=== PATIENT | female | born 1955 | race Caucasian/White ===

== ENCOUNTER 2019-12-28 11:02 | Emergency (ER) | payer OTHER, SELFPAY ==
[2019-12-28 10:42] VITALS: BMI 23.6
[2019-12-28 11:02] VITALS: PULSE 85; RESP 24; O2SAT 99
[2019-12-28 11:03] VITALS: BP 113/70; PULSE 101; RESP 17; TEMP 37.1; BMI 20.7
--- NOTE | 2019-12-28 11:25 | RAD_ITS ---
STUDY: X-RAY - UNILATERAL RIBS ( LEFT ) WITH CHEST REASON FOR EXAM: Female, 64 years old. FALL FROM HORSE TWO DAYS AGO, DIZZINESS, L SIDE PAIN, DECREASED O2 TECHNIQUE - RIBS: 4 view(s) of the ribs. TECHNIQUE - CHEST: Single PA view. COMPARISON: None. FINDINGS - RIBS: Acute fractures of the left sixth, seventh, eighth and ninth ribs. FINDINGS - CHEST: Pulmonary hyperinflation with flattening of the hemidiaphragms. Mild emphysema of the upper lobes, right side more than left. No suspicious infiltrates. Bilaterally prominent nipple shadows. There is no demonstrated pleural abnormality. Microcardia. Normal mediastinum and marialuisa. Normal visualized pulmonary arteries. Normal visualized aortic arch and descending thoracic aorta. Normal visualized thoracic spine. Acute fracture of the left mid clavicle with apical angulation deformity of the fracture fragments. Normal right clavicle and shoulders. Normal right rib cage. There is no demonstrated abnormality of the visualized soft tissue structures of the upper abdomen. RAD/Ribs Uni Min 3V w/PA Chest IMPRESSION: RIBS: Acute fractures of the left sixth, seventh, eighth and ninth ribs. CHEST: Acute fracture of the left mid clavicle with apical angulation deformity of the fracture fragments. 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 Electronically Signed: Philip Rojas MD at 12:17 EDT , Service support ,
--- NOTE | 2019-12-28 11:25 | RAD_ITS ---
STUDY: X-RAY - PELVIS AND LEFT HIP REASON FOR EXAM: Female, 64 years old. FALL FROM HORSE TWO DAYS AGO, DIZZINESS, L SIDE PAIN, DECREASED O2 TECHNIQUE: 3 views of the pelvis and hip. COMPARISON: None. FINDINGS: There is a non-specific bowel gas pattern. Normal visualized soft tissue structures. Normal bilateral iliac wings, sacroiliac joints and visualized sacrum. Normal bilateral superior and inferior pubic rami. Normal pubic symphysis. Normal bilateral ischial tuberosities. Normal visualized femoral head. Normal acetabulum. Normal hip joint. RAD/HIP, UNI W/ Pelvis 2-3 Views IMPRESSION: No acute fracture or dislocation of the pelvis and left hip. Electronically Signed: Philip Rojas MD at 12:12 EDT , Service support ,
--- NOTE | 2019-12-28 11:25 | ED.VIS.FALL ---
History of Present Illness Chief Complaint: Dizziness Detail of Chief Complaint: fall Occurred: Days - 2 d ago Mechanism/Context: - - bucked off of a horse Location: left side -- shoulder, ribcage, hip Quality of Pain: Aching Current Severity: Moderate Maximum Severity: Moderate Worsened by: walking, deep inspiration, movement Relieved by: remaining still. no pain in hip w/ standing/WBing Associated Symptoms: - - lightheaded w/ standing. no vertiginous sx. no headache, nausea. vomited some water once yesterday.. Negative for: Parasthesias, Weakness, Loss of function, Inability to ambulate, Loss of consciousness, Amnesia Narrative: Patient fell off of a horse 2 days ago. She had no loss of consciousness. She landed on her left side, she sustained an abrasion to her forehead but the head was not the sole area that she landed. She is having pain in her left clavicle, left posterior rib cage, in her lateral and anterior left hip. She can bear weight without any difficulty, when she forward flexes at the hip while walking it hurts. Denies any abdominal pain. She has urinated without hematuria. No headaches or vision changes or neurologic symptoms. She is healthy and takes no medications daily including antiplatelet or anticoagulant medicines. Past Medical History - Allergies and Home Meds Allergies/Adverse Reactions: Allergies No Known Allergies Allergy (Unverified 12/28/19 11:03) Primary Care Physician: Eleanor Armstrong DO [Primary Care Provider] - Past Medical History: None Smoking Status: Never smoker Drugs: None Review of Systems General: Denies: Chills, Fever, Sweats Eyes: Denies: Visual changes - bilaterally, Diplopia ENT: Denies: Rhinorrhea, Sore throat Cardiovascular: Reports: Chest pain. Denies: Palpitations Respiratory: Denies: Dyspnea, Cough, Dyspnea on exertion Gastrointestinal: Denies: Abdominal pain, Nausea, Vomiting, Diarrhea, Melena, Hematochezia Genitourinary: Denies: Dysuria, Hematuria, Frequency Musculoskeletal: Reports: Back pain - Left lateral/low ribs, Extremity Pain. Denies: Neck pain Skin: Reports: Abrasions. Denies: Rash Neurological: Denies: Headache, Weakness, Numbness Physical Exam Vital Signs/Narrative: Vital Signs Temp Pulse Resp BP Pulse Ox 12/28/19 11:03 98.8 F 101 H 17 113/70 12/28/19 11:02 85 24 H 99 Inital Vital Signs reviewed: Yes General: Well nourished, Well developed, - - Well-appearing no distress. Head: Normocephalic, Atraumatic Eyes: Perrl, EOMI ENT: TM's clear, No hemotympanum or drainage, No trauma - Except for minor nontender abrasion, healing, left forehead. No crepitance or depression. Neck: Nontender, Full ROM. Negative for: Spinal Tenderness Cardiovascular: Regular rate, Regular rhythm, No murmurs Respiratory: No distress, CTA bilaterally, Chest tenderness - Left mid-lateral clavicle. No deformity. No step-off palpable. No tenderness at the acromioclavicular joint or the sternum/sternoclavicular joints. Abdomen: Soft, Nontender, Nondistended, Normal bowel sounds Back: - - Mild tenderness left paraspinal pelvic brim. No crepitance or step-off or signs of obvious trauma.. Negative for: Spinal Tenderness Extremeties: Tender at the left ASIS. Mildly tender at the greater trochanter. Painless internal and external rotation. Full range of motion of all joints of all 4 extremities. Skin: Normal color, No rash, Trauma - Minor abrasion forehead. Bruising with intact skin left lateral hip, diffuse. Neurological: Alert, Oriented x3, Cranial nerves II-XII grossly intact, Normal Strength, Normal Sensation, - - GCS 15 Psychological: Normal affect, Normal Mood Diagnostic/Tx/Re-eval Clinical Impression(s) from Imaging Studies Hip/Pelvis X-Ray 12/28/19 11:25 IMPRESSION: No acute fracture or dislocation of the pelvis and left hip. Electronically Signed: Philip Rojas MD at 12:12 EDT , Service support , Ribs w/Chest X-Ray 12/28/19 11:25 IMPRESSION: RIBS: Acute fractures of the left sixth, seventh, eighth and ninth ribs. CHEST: Acute fracture of the left mid clavicle with apical angulation deformity of the fracture fragments. 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 Electronically Signed: Philip Rojas MD at 12:17 EDT , Service support , - Medical Decision Making Patient given ibuprofen at her request. X-rays show angulated but nondisplaced fracture of the left clavicle in the middle of it, as well as multiple rib fractures on the left side. I think all of these are uncomplicated. Her pelvis/hip is okay on x-ray. She was reassured, given appropriate discharge instructions, a sling for her left upper extremity, prescription for Ultram, and advised to follow-up with orthopedics for reevaluation to ensure fracture healing goes appropriately. We discussed her dizziness/lightheadedness when she stands up. I do not think this is a symptom of concussion, and since she has had really no other symptoms of concussion, I do not think she needs a head scan to see if she has any type of significant traumatic brain injury, which I do not think she has. ED Disposition - Plan for ED Patient: Disposition: Home or Assisted Living Diagnosis: Closed left clavicular fracture, Left rib fracture Instructions: ED Rib Fx, ED Clavicle Fracture Prescriptions: traMADol [Ultram (G)] 50 mg PO Q4H PRN PRN #20 tab PRN Reason: pain Transmission Status: Sent to [id number] Referrals: Eleanor Armstrong DO [Primary Care Provider] - Arash Cheung MD [STAFF PHYSICIAN] - 1-2 Weeks
[2019-12-28] MEDS: Ibuprofen 200 MG Tablet 400 MG PO (12:12)
--- NOTE | 2019-12-28 12:45 | CT_ITS ---
STUDY: CT BRAIN WITHOUT CONTRAST REASON FOR EXAM: Female, 64 years old. Dizziness and lightheaded after fall. Left clavicle fracture. RADIATION DOSAGE (If Supplied By Facility): CTDIvol = ( 44.99 ) mGy, DLP = ( 745.49 ) mGycm TECHNIQUE: Transaxial CT imaging of the brain was performed without administration of intravenous contrast material. Coronal and sagittal reconstructions were performed. Individualized dose optimization techniques were used for this CT. COMPARISON: None. FINDINGS: Normal soft tissue structures. Normal calvarium. Normal size ventricles and extra-axial spaces for the patient''s age. Normal white matter tracts of the cerebral hemispheres. Normal basal ganglia and thalami. Normal brainstem. Normal cerebellum. There is no intracranial hemorrhage. There are no findings of an acute ischemic infarction. Normal visualized paranasal sinuses. CT/Brain/Head without Contrast IMPRESSION: Normal unenhanced CT scan of the brain. Electronically Signed: Philip Rojas MD at 13:58 EDT , Service support ,
[2019-12-28 13:02] VITALS: BP 142/76; PULSE 93; RESP 20; O2SAT 99
[2019-12-28 14:00] VITALS: BP 124/70; PULSE 85; RESP 20; O2SAT 97
== END 2019-12-28 14:36 | disposition home or self-care (01) ==
PROVIDERS: Emergency Provider Emergency Medicine; PCP Internal Medicine
DX: S42.025A Nondisplaced fracture of shaft of left clavicle, initial encounter for closed fracture (principal); S22.42XA Multiple fractures of ribs, left side, initial encounter for closed fracture; V80.010A Animal-rider injured by fall from or being thrown from horse in noncollision accident, initial encounter; Y93.52 Activity, horseback riding; Y92.89 Other specified places as the place of occurrence of the external cause; Y99.8 Other external cause status
CPT/HCPCS: 70450; 71101; 73502; 99283

== ENCOUNTER 2022-01-06 07:38 | Outpatient (CLI) | payer OTHER, SELFPAY ==
--- NOTE | 2022-01-06 13:08 | NEURO ---
NCS and/or EMG Patient Report Ordering Doctor: Jac Truong DATE OF SERVICE: 01/06/22 Emily presents for electrodiagnostic testing of the right lower limb. She reports weakness in the right leg for the past year. Electrodiagnostic findings: Right peroneal motor nerve demonstrates normal distal latency with borderline reduced amplitude and normal conduction velocity. Normal right tibial motor response. Normal tibial and peroneal F-wave. H reflex normal bilaterally. Absent right sural and medial plantar responses. Normal right superficial peroneal latency. Needle EMG, 1+ polyphasic motor unit action potentials are noted in the right anterior tibialis and right peroneus longus. Electrodiagnostic impression: This is an abnormal study. 1. Electrodiagnostic findings are suggestive of chronic denervation in the right L5 distribution. 2. Absence of sensory responses and borderline reduced right peroneal motor amplitude may be suggestive of early polyneuropathy. Would consider testing of the alternate limb and potentially one upper limb for more definitive diagnosis. 3. No electrodiagnostic evidence is noted for lumbosacral radiculopathy.
== END 2022-01-06 23:59 | disposition home or self-care (01) ==
LOC: PSN 07:39
PROVIDERS: PCP Internal Medicine; Visit Provider Psychiatry & Neurology Neurology
DX: G57.30 Lesion of lateral popliteal nerve, unspecified lower limb (principal)
CPT/HCPCS: 95886; 95910

== ENCOUNTER → 2022-01-22 | Outpatient (CLI) | payer OTHER, SELFPAY ==
[2022-01-22 10:41] LABS: Erythrocyte Sedimentation Rate 12 mm/hr (0-30)
[2022-01-22 10:43] LABS: Hematocrit 37.6 % (37-47); Hemoglobin 12.6 g/dL (12.0-15.0); Mean Corp Hgb Conc 33.5 g/dL (32-36); Mean Corpuscular Hgb 32.6 pg (27.0-32.0); Mean Corpuscular Volume 97.4 fL (81-99); Mean Platelet Vol. 10.5 fl (6.2-12.0); Platelet Count 287 K/mm3 (150-450); RBC Distribution Width SD 46.4 fl (35.1-43.9); Red Blood Count 3.86 M/mm3 (4.2-5.4); White Blood Count 3.3 K/mm3 (4.4-11.0)
[2022-01-22 10:47] LABS: Vitamin B12 588 pg/mL (211-911)
[2022-01-22 11:28] LABS: AST(SGOT) 17 U/L (15-37); Alanine Aminotransfer ALT/SGPT 21 U/L (13-56); Albumin, Serum 3.9 g/dL (3.2-5.0); Alkaline Phosphatase 41 U/L (45-117); Anion Gap 6 (5-15); BUN 24 mg/dL (7-18); BUN/Creat Ratio 29.1 RATIO (10-20); Calcium,Total 9.5 mg/dL (8.5-10.1); Chloride 104 mmol/L (98-107); Creatinine, Serum 0.83 mg/dL (0.55-1.02); EST Glomerular Filtration Rate 73 mL/min (>60); Est Glom Filt Rate - Afr Amer 88 mL/min (>60); Globulin 4.1 g/dL (2.2-4.2); Glucose 93 mg/dL (74-106); Potassium 3.9 mmol/L (3.5-5.1); Sodium Level 139 mmol/L (136-145); Thyroid Stim Hormone (TSH) 2.34 uIU/mL (0.358-3.74)
[2022-02-02 09:09] LABS: Free Kappa Light Chains 20.4 mg/L (3.3-19.4); Free Lambda Light Chains 14.8 mg/L (5.7-26.3)
[2022-02-02 11:46] LABS: Vitamin B1, Thiamine 157.5 nmol/L (66.5-200.0)
== END | disposition home or self-care (01) ==
PROVIDERS: PCP Internal Medicine; Referring Provider Psychiatry & Neurology Neurology; Visit Provider Psychiatry & Neurology Neurology
DX: G62.9 Polyneuropathy, unspecified (principal)
CPT/HCPCS: 36415; 80053; 82607; 82746; 83883; 84425; 84443; 85027; 85652

== ENCOUNTER → 2022-03-04 | Outpatient (CLI) | payer OTHER, SELFPAY ==
[2022-03-04 12:38] LABS: Ferritin 27 ng/mL (8-252); Iron 103 ug/dL (50-170); Magnesium 1.9 mg/dL (1.6-2.6)
[2022-03-05 15:08] LABS: Albumin 3.9 g/dL (2.9-4.4); Alpha-1-Globulins 0.3 g/dL (0.0-0.4); Alpha-2-Globulins 0.6 g/dL (0.4-1.0); Gamma Globulin 1.3 g/dL (0.4-1.8); Immunoglobulin A 249 mg/dL (87-352); Immunoglobulin G 1429 mg/dL (586-1602); Immunoglobulin M 158 mg/dL (26-217); PROEL- TOTAL PROTEIN 7.1 g/dL (6.0-8.5)
== END | disposition home or self-care (01) ==
LOC: MTLAB 10:05
PROVIDERS: Nurse Practitioner Family; PCP Internal Medicine; Referring Provider Psychiatry & Neurology Neurology; Visit Provider Psychiatry & Neurology Neurology
DX: G62.9 Polyneuropathy, unspecified (principal); G20 Parkinson's disease; D64.9 Anemia, unspecified
CPT/HCPCS: 36415; 82728; 82784; 83540; 83735; 84165; 86334; 86335

== ENCOUNTER 2022-04-05 08:00 | Outpatient (RCR) | payer OTHER, SELFPAY ==
--- NOTE | 2022-02-08 08:47 | HP.PTEVAL_ITS ---
Patient's Visit Information ANTHONY CHAUDHARY is a 66 year old F referred to Physical Therapy by JONATHAN Goins with a diagnosis of Parkinson's Disease, R. Date of Evaluation: 02/01/22 Physical Therapist: FERNANDO Briones - Visit Plan Frequency: 2x /Week Duration: 4 Weeks Plan: 2x/ WEEK for 4 weeks for dual tasking, balance, balance dynamic and static on foam and without foam, stretching of trunk and postural exercises, taking bigger steps with gait, with HEP. Transition to PD Plus class when able. - Subjective Pt reports that the Dr. thinks that she has PD. Pt just saw the neurologist for the second time. Pt has trouble with her Right side upper and LE extremity and posture... feels like she leans to the R side. She has had a few falls... backing up too fast and sat down and hit her head. Stairs: up and down the sta irs with handrail. She gets a lot of anxiety about doing things. Sit to stand: Not too much trouble and uses her arms to push her up. She wears a lace/velcro brace outside all day on uneven ground. 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 She has not ridden her horse and that is upsetting her. - Objective A lot of time today spent on asking questions about her condition and activities at home. Gait: walks with no heel to toe gait pattern and does tend to trip on her R LE. FGA: 15. Sit to stand: able to get up with no arms but one leg under the chair. stairs; Up and down recip with 1 hand rail. Standing and sitting opp arm and leg pt was only able to do 3 in a row max and then reverted to same side arm and leg. LE MMT: B hip flex 4+/5 (some core weakness as did tend to lean against resistance), B knee flex and knee ext 4+/5, Pt is able to do 1/2 normal ROM bridge, B hip abd 4+/5. CATSIB 105/120. 4 Square 9:64 (9.68 fall risk). TUG 7:52 (good). sit to stations superintendent 30 seconds: 10 (good). 360 turn (3:29 5 steps). Single limb R 7:92 sec (increase fall risk). Single limb L 8:82 sec (increased fall risk). Standing opp arm and le times on each side and then starts same side. - Balance/Special Test Scores Functional Gait Assessment Score: 15 % Disability: 50.0000 CATSIB Score (Max score 120 seconds): 105 Lower Extremity Functional Score: 64 - Goals Goal 1:: I HEP Goal Time Frame: 8-12 Weeks Goal 2:: Decrease time on 4 square to less than 9 seconds to decrease fall risk and increase ability to move in different directions (9.64) Goal Time Frame: 8-12 Weeks Goal 3:: Be able to to complete 1 X 10 opp arm and leg while talking to increase dual tasking abilities Goal Time Frame: 8-12 Weeks Goal 4:: Increase FGA by 5 points to decrease fall risk (was score of 15 on eval) Goal Time Frame: 8-12 Weeks - Rehabilitation Potential Rehabilitation Potential: Good - Anticipated Interventions Patient/Client Instruction: Educate patient on: Condition, Plan of Care For the Purpose of:: To improve muscle performance and motor function, To improve ability to perform ADL's, To improve performance and independence with ADL's, To decrease level of supervision to perform tasks, To improve ability of physical actions for home/community/work/leisure, To improve gait and locomotor functions, To improve health of tissue, To decrease soft tissue restriction, To increase flexibility/ROM, To improve endurance, To improve balance, To improve safety with gait Therapeutic Exercise to Include: Strength training, Endurance training, Balance training, Coordination, Body mechanics, Postural training, Flexibilty training, Gait and locomotor training, Neuromotor development, Passive ROM, Active ROM, Dynamic Lumbar Stabilization For the Purpose of:: To improve muscle performance and motor function, To improve ability to perform ADL's, To increase tolerance to activity/condition/position, To improve performance and independence with ADL's, To decrease level of supervision to perform tasks, To improve ability of physical actions for home/community/work/leisure, To improve gait and locomotor functions, To improve health of tissue, To decrease soft tissue restriction, To increase flexibility/ROM, To improve endurance, To improve balance, To improve safety with gait Functional Training to Include: Functional home training, Gait training For the Purpose of:: To improve gait and locomotor functions, To improve safety with gait Thank you for the opportunity to evaluate your patient. For Medicare and Medicare HMO plans, please review the plan of care and approve it. It will need to be FAXED BACK to us at [phone] for Medicare purposes. For Medicare only, by signing this I certify the plan of care. Please let me know if there are questions or concerns regarding this plan of care. Physician Signature: Date:
--- NOTE | 2022-04-05 10:01 | HP.PTREVAL ---
Kirsty Chinchilla, JONATHAN, It has been my pleasure to treat ANTHONY CHAUDHARY over the last 11 visits for Parkinson's Disease, R. Please see the progress note below for an update on the physical therapy plan of care! Subjective: Pt feels that PT has helped and helped guide her in this PD journey. She has lots of exercises that she can do at home. She is depressed cause she is riding her horse but she can not ride the easy trot Objective/Function: Discussed her discoordination riding her horse and her R leg and her tenseness with riding causing not a smooth ride. Discussed HEP and joining PD class. 4 Square 7 seconds. Able to do X 15 B standing opp arm and leg without messing up. She still has shorter strides but able to keep the movement. Pt will work on bigger strides. FGA 18 Plan Plan: DC PT to HEP Balance/Gait/Functional tests - Balance/Special Test Scores Functional Gait Assessment Score: 18 % Disability: 40.0000 CATSIB Score (Max score 120 seconds): 105 Lower Extremity Functional Score: 47 Goals Goal 1:: I HEP Goal Time Frame: 8-12 Weeks Goal Progress: Goal Met Goal 2:: Decrease time on 4 square to less than 9 seconds to decrease fall risk and increase ability to move in different directions (9.64) Goal Time Frame: 8-12 Weeks Goal Progress: Goal Met Goal 3:: Be able to to complete 1 X 10 opp arm and leg while talking to increase dual tasking abilities Goal Time Frame: 8-12 Weeks Goal Progress: Goal Met Goal 4:: Increase FGA by 5 points to decrease fall risk (was score of 15 on eval) Goal Time Frame: 8-12 Weeks Goal Progress: Progressing Anticipated Interventions Patient/Client Instruction: Educate patient on: Condition, Plan of Care For the Purpose of:: To improve muscle performance and motor function, To improve ability to perform ADL's, To improve performance and independence with ADL's, To decrease level of supervision to perform tasks, To improve ability of physical actions for home/community/work/leisure, To improve gait and locomotor functions, To improve health of tissue, To decrease soft tissue restriction, To increase flexibility/ROM, To improve endurance, To improve balance, To improve safety with gait Therapeutic Exercise to Include: Strength training, Endurance training, Balance training, Coordination, Body mechanics, Postural training, Flexibilty training, Gait and locomotor training, Neuromotor development, Passive ROM, Active ROM, Dynamic Lumbar Stabilization For the Purpose of:: To improve muscle performance and motor function, To improve ability to perform ADL's, To increase tolerance to activity/condition/position, To improve performance and independence with ADL's, To decrease level of supervision to perform tasks, To improve ability of physical actions for home/community/work/leisure, To improve gait and locomotor functions, To improve health of tissue, To decrease soft tissue restriction, To increase flexibility/ROM, To improve endurance, To improve balance, To improve safety with gait Functional Training to Include: Functional home training, Gait training For the Purpose of:: To improve gait and locomotor functions, To improve safety with gait Please do not hesitate to contact me at [phone] by phone or if you have questions or concerns regarding this new plan of care! Sincerely, Clemencia Martinez, MPT
--- NOTE | 2022-06-14 10:29 | HP.PTDCSUM ---
It has been my pleasure to treat ANTHONY CHAUDHARY referred by JONAHTAN Goins, with the diagnosis of Parkinson's Disease, R for a total of 11 visit(s). Discharge Date: 04/05/22 Please see the following information for a summary of their discharge status. Subjective: Pt feels that PT has helped and helped guide her in this PD journey. She has lots of exercises that she can do at home. She is depressed cause she is riding her horse but she can not ride the easy trot % Improvement: 25 Objective/Function: Discussed her discoordination riding her horse and her R leg and her tenseness with riding causing not a smooth ride. Discussed HEP and joining PD class. 4 Square 7 seconds. Able to do X 15 B standing opp arm and leg without messing up. She still has shorter strides but able to keep the movement. Pt will work on bigger strides. FGA 18 Goal 1:: I HEP Goal Progress: Goal Met Goal 2:: Decrease time on 4 square to less than 9 seconds to decrease fall risk and increase ability to move in different directions (9.64) Goal Progress: Goal Met Goal 3:: Be able to to complete 1 X 10 opp arm and leg while talking to increase dual tasking abilities Goal Progress: Goal Met Goal 4:: Increase FGA by 5 points to decrease fall risk (was score of 15 on eval) Goal Progress: Progressing Plan: DC PT to HEP Discharge Comments: DC PT to HEP If there are questions or concerns regarding this patient's physical therapy, please feel free to call me at [phone]. Thank you for the referral of this patient. Sincerely, Clemencia Martinez, MPT Balance/Gait/Functional tests - Balance/Special Test Scores Functional Gait Assessment Score: 18 % Disability: 40.0000 CATSIB Score (Max score 120 seconds): 105 Lower Extremity Functional Score: 47
== END 2022-04-05 19:00 | disposition home or self-care (01) ==
LOC: PT 08:00
PROVIDERS: PCP Internal Medicine; Referring Provider Nurse Practitioner Family; Visit Provider Nurse Practitioner Family
DX: G57.31 Lesion of lateral popliteal nerve, right lower limb (principal); G62.9 Polyneuropathy, unspecified; G20 Parkinson's disease
CPT/HCPCS: 97110; 97162; 97530

== ENCOUNTER → 2024-12-18 | Outpatient (CLI) | payer MEDICARE, OTHER, SELFPAY ==
[2024-12-18 15:37] LABS: Hematocrit 39.9 % (37-47); Hemoglobin 13.6 g/dL (12.0-15.0); Mean Corp Hgb Conc 34.1 g/dL (32-36); Mean Corpuscular Hgb 32.6 pg (27.0-32.0); Mean Corpuscular Volume 95.7 fL (81-99); Mean Platelet Vol. 10.9 fl (6.2-12.0); Platelet Count 251 K/mm3 (150-450); RBC Distribution Width CV 12.6 % (11.6-14.6); RBC Distribution Width SD 44.7 fl (35.1-43.9); Red Blood Count 4.17 M/mm3 (4.2-5.4); White Blood Count 4.8 K/mm3 (4.4-11.0)
[2024-12-18 17:45] LABS: ALB/GLOB Ratio 1.4 RATIO (0.9-2.4); AST(SGOT) 19 U/L (<=31); Alanine Aminotransfer ALT/SGPT 9 U/L (<=34); Albumin, Serum 4.6 g/dL (3.4-4.8); Alkaline Phosphatase 51 U/L (35-104); Anion Gap 12 (5-15); BUN 21 mg/dL (4-19); BUN/Creat Ratio 33.7 RATIO (10-20); Calcium,Total 9.6 mg/dL (7.6-11.0); Carbon Dioxide 26.4 mmol/L (21.0-32.0); Chloride 102 mmol/L (98-108); Creatinine, Serum 0.62 mg/dL (0.70-1.20); EST Glomerular Filtration Rate 95 (>60); Ferritin 55 ng/mL (22-378); Globulin 3.3 g/dL (2.2-4.2); Glucose 91 mg/dL (70-99); Iron 124 ug/dL (50-170); Potassium 4.1 mmol/L (3.3-5.1); Sodium Level 140 mmol/L (133-145); Total Bilirubin 0.29 mg/dL (0.00-1.30); Vitamin B12 1110 pg/mL (180-914)
== END | disposition home or self-care (01) ==
PROVIDERS: PCP Internal Medicine; Referring Provider Psychiatry & Neurology Neurology; Visit Provider Psychiatry & Neurology Neurology
DX: E61.1 Iron deficiency (principal); G62.9 Polyneuropathy, unspecified; Z86.2 Personal history of diseases of the blood and blood-forming organs and certain disorders involving the immune mechanism
CPT/HCPCS: 36415; 80053; 82607; 82652; 82728; 82747; 83540; 83883; 84425; 84443; 85014; 85027

== ENCOUNTER → 2025-01-02 | Outpatient (CLI) | payer MEDICARE, OTHER, SELFPAY ==
--- NOTE | 2025-01-02 15:07 | NEURO_ITS ---
NCS and/or EMG Patient Report Ordering Doctor: Jalil Banerjee DATE OF SERVICE: 01/02/25 Emily presents with complaints of cramping in both feet and leg pain. She has history of Parkinson's disease. Electrodiagnostic findings: Right peroneal motor nerve demonstrates normal distal latency amplitude and conduction velocity. Left peroneal motor response is within normal limits. Normal tibial response bilaterally. Normal tibial and peroneal F?waves. H-reflex is prolonged bilaterally. Sensory responses are wit hin normal limits. Needle EMG testing was performed the lower limbs. All muscles tested showed no evidence of denervation with normal motor unit action potentials. Electrodiagnostic impression: This a normal electrodiagnostic study in the lower limbs. There is no electrodiagnostic evidence for peripheral neuropathy or lumbosacral radiculopathy. Multi Select Codes Neurology Neurology Interp Codes: 34639-11 Musc test done w/n test comp (interp) (2) and 35719-71 Nrv cndj test 11-12 studies (interp)
== END | disposition home or self-care (01) ==
PROVIDERS: PCP Internal Medicine; Referring Provider Podiatrist; Visit Provider Podiatrist
DX: R20.2 Paresthesia of skin (principal)
CPT/HCPCS: 95886; 95912

== ENCOUNTER 2025-02-15 01:35 | Observation (INO) | payer MEDICARE, OTHER, SELFPAY ==
[2025-02-15] VITALS (15 sets, daily range): BP systolic 108–176; BP diastolic 72–102; PULSE 60–78; RESP 14–18; TEMP 36.6–36.9; O2SAT 94–99; BMI 20.8
--- NOTE | 2025-02-15 01:56 | CT_ITS ---
PROCEDURE: STROKE BRAIN/HEAD WITHOUT CONT 02/15/2025 REASON FOR EXAM: NEURO DEFICIT, ACUTE, STROKE SUSPECTED TECHNIQUE: Head CT without intravenous contrast. Coronal and Sagittal reconstruction series were provided. One or more dose reduction techniques were used (e.g., Automated exposure control, adjustment of the mA and/or kV according to patient size, use of iterative reconstruction technique. RADIATION DOSE SUMMARY: CTDlvol: 44.99 mGy DLP: 829.85 mGycm COMPARISON: 12/28/2019 FINDINGS: No intracranial hemorrhage, mass effect or CT evidence of large vascular territory acute infarct. The ventricles are within limits and midline. Age commensurate chronic and involutional changes. Paranasal sinuses, mastoids and orbits appear within limits. CT/STROKE Brain/Head without Cont IMPRESSION: No intracranial hemorrhage, mass effect or CT evidence of large vascular territ ory acute infarct. Age commensurate chronic and involutional changes. Findings verbally reported by myself to Dr. Dejesus at 2:35 a.m. 02/15/2025 Reading Location: [id number]
--- NOTE | 2025-02-15 01:56 | EKG12_ITS ---
Test Reason : DYRHYTHMIA Blood Pressure : */* mmHG Vent. Rate : 65 BPM Atrial Rate : 65 BPM P-R Int : 186 ms QRS Dur : 94 ms QT Int : 418 ms P-R-T Axes : 39 40 33 degrees QTcB Int : 434 ms Normal sinus rhythm Normal ECG Confirmed by Travon Bond ([id number]), acquisitions editor ORQUIDEA MARIE ([id number]) on 02/18/2025 10:41:48 AM Referred By: Confirmed By: Travon Bond
--- NOTE | 2025-02-15 01:56 | CT_ITS ---
PROCEDURE: STROKE CTA HEAD AND NECK W/CON 02/15/2025 REASON FOR EXAM: NEURO DEFICIT, ACUTE, STROKE SUSPECTED TECHNIQUE: CTA imaging of the head and neck from the aortic arch to the skull vertex with out contrast and with intravenous contrast. Multiplanar and multisequence images were obtained. Coronal and sagittal MIP images Visualized upper lungs appear clear. C5 through C7 spondylosis/discogenic changes. CONTRAST: 97 cc Isovue 370 IV One or more dose reduction techniques were used (e.g., Automated exposure control, adjustment of the mA and/or kV according to patient size, use of iterative reconstruction technique). RADIATION DOSE SUMMARY: CTDlvol: 16.61 mGy DLP: 577.70 mGycm COMPARISON: None available FINDINGS: Beam hardening streak artifact from contrast bolus. Thoracic aortic arch appears within limits with standard three-vessel branching. Undulating vessels. The vertebral arteries arise as expected. The left vertebral artery is dominant. The vertebral arteries are patent throughout the cervical portions and both appear to contribute to the basilar artery. No flow significant stenosis, vessel cut off or dissection. The right and left common carotid and internal carotid arteries are patent throughout without flow significant stenosis, dissection or vessel cut off. Mild bilateral carotid bulb calcific plaque formation without flow significant stenosing stenosis. The petrous horizontal and vertical portions and paraclinoid internal carotid arteries are patent. The anterior and posterior circulations appear intact. Right and left middle and anterior cerebral arteries are patent. The basilar artery is patent. Bilateral posterior cerebral and superior cerebellar arteries appear patent. No flow significant stenosis, vessel cut off or aneurysm. CT/STROKE CTA Head AND Neck W/Con IMPRESSION: Undulating vessels. No CTA head or neck flow significant stenosis, dissection, vessel cut off or an eurysm as above. Reading Location: [id number]
[2025-02-15 02:03] LABS: Absolute Lymphocyte Count 0.83 X10^3/uL (0.83-4.51); Basophil# 0.06 X10^3/uL; Basophil% 1.6 % (0-1); Eosinophil# 0.22 X10^3/uL; Eosinophils% 5.8 % (0-5); Hematocrit 36.9 % (37-47); Hemoglobin 12.4 g/dL (12.0-15.0); Lymphocyte # 0.83 X10^3/ul (0.83-4.51); Lymphocyte % 21.8 % (19-41); Mean Corp Hgb Conc 33.6 g/dL (32-36); Mean Corpuscular Hgb 32.6 pg (27.0-32.0); Mean Corpuscular Volume 97.1 fL (81-99); Mean Platelet Vol. 10.3 fl (6.2-12.0); Monocyte# 0.72 X10^3/uL; Monocyte% 18.9 % (0-10); NRBC Flagged by Analyzer 0 % (0-5); Neutrophil # 1.97 X10^3/uL (2.7-7.7); Neutrophil % 51.6 % (47-70); Platelet Count 204 K/mm3 (150-450); RBC Distribution Width CV 13.2 % (11.6-14.6); RBC Distribution Width SD 47.3 fl (35.1-43.9); White Blood Count 3.8 K/mm3 (4.4-11.0)
[2025-02-15 02:13] LABS: Prothrombin Time (Protime)PT. 13.6 SECONDS (11.7-14.9)
[2025-02-15 02:21] LABS: Partial Thromboplast Time 31.9 Seconds (24.1-36.2)
[2025-02-15 02:25] LABS: Anion Gap 10 (5-15); BUN 26 mg/dL (4-19); BUN/Creat Ratio 38.2 RATIO (10-20); Calcium,Total 9.2 mg/dL (7.6-11.0); Carbon Dioxide 24.4 mmol/L (21.0-32.0); Chloride 105 mmol/L (98-108); Creatinine, Serum 0.68 mg/dL (0.70-1.20); EST Glomerular Filtration Rate 93 (>60); Estimated Creatinine Clearance 57.94 ml/min (50-250); Glucose 103 mg/dL (70-99); Potassium 3.6 mmol/L (3.3-5.1); Sodium Level 140 mmol/L (133-145); Troponin T High Sensitivity 19 ng/L (<=14)
--- NOTE | 2025-02-15 03:05 | EDS_ITS ---
HPI History of Present Illness Chief Complaint: Neuro S/Sx Informant: patient and spouse/S.O. Narrative Narrative: History of Parkinson's ambulates with a walker at baseline. Here with spouse by private vehicle for evaluation. States at 3 AM yesterday noted 24 hours she got up she had to hold the wall for balance stated feeling weak. got her back in bed 10 minutes later she walked out to her recliner. Reports was able to walk for breakfast to the kitchen table. They had a neurology appoint with Dr. Truong at 11 AM for which she walked there. She has been dealing with neuropathy pain to her lower legs. 3 weeks ago was seen in the office she has had outpatient nerve conduction studies. She was put on baclofen at that time. They follow-up today states additional nerve testing is ordered. Her baclofen was increased however that has not been taken yet. Reports that 8 PM patient got weak again unstable balance. At the dinner table had trouble moving her right arm and shaking. No headaches no trouble speaking. He helped patient back to the recliner, however she had an accident with urine therefore he had to clean her in the shower. Decided to bring her in to be evaluated. She denies recent vomiting or diarrhea denies urinary symptoms denies any cough. Prior similar symptoms: No PFSH PFSH Medical History Parkinson disease COVID-19 Acute bronchitis, unspecified Anemia Neck pain Shoulder pain Home Medications ?Medication ?Instructions ?Recorded ?Last Taken ?Type magnesium 200 mg tablet 200 mg PO DAILY 10/27/21 Unk nown History citalopram 10 mg tablet (Celexa) 10 mg PO DAILY Unknown History coenzyme Q10 30 mg capsule 30 mg PO DAILY 11/08/22 Unk nown History omega-3 fatty acids 1,000 mg 1,000 mg PO DAILY 3 Unknown History capsule ropinirole 3 mg tablet 3 mg PO BID #60 tabs 5 Unknown Rx carbidopa ER 25 mg-levodopa 100 mg 2 tab PO .QID #240 tabs 01/28/25 Unknown Rx tablet,extended release naproxen 500 mg tablet 500 mg PO BID PRN pain #60 t abs 01/28/25 Unknown Rx baclofen 10 mg tablet See Rx Instructions .Route 0 5/29/25 Unknown Rx .COMPLEX muscle pain/muscle spasm #180 tabs multivitamin (Daily Multi-Vitamin 1 tab PO DAILY 02/15 Unknown History tablet) Allergy/AdvReac Type Severity Reaction Status Date / Time No Known Allergies Allergy Verified 02/15/25 01:37 Family History Mother Non-Hodgkin lymphoma Father Alzheimer disease Sister Bone cancer CVA (cerebral vascular accident) Parkinsons disease Grandfather Myocardial infarction Grandfather Myocardial infarction Surgical History No history of previous surgery Social History household members: spouse housing: house Smoking Status: Never smoker second hand exposure: No alcohol intake: current details: socially substance use type: does not use deshaun/oriental orthodox: Yazdanism seatbelt use: always ROS ROS ED Constitutional Constitutional ED: Denies chills, fever(s) or sweats ENT ENT ED: Denies sore throat Cardiovascular Cardiovascular: Denies chest pain, leg edema, palpitations or racing heartbeat Respiratory/Chest Respiratory/Chest: Denies cough, dyspnea or dyspnea on exertion Gastrointestinal Gastrointestinal: Denies abdominal pain, diarrhea, nausea or vomiting Genitourinary Genitourinary ED: Denies dysuria, hematuria or urinary frequency Musculoskeletal Musculoskeletal: Denies back pain, extremity pain or neck pain Integumentary Denies rash or wounds Neurologic Neurologic: Reports weakness and other Details: Unstable gait. ; Denies headache(s) or paresthesias EXAM Physical Exam Const Vital Signs: 02/15/25 01:37 02/15/25 01:56 02/15/25 02:00 Temperature 98.2 F Temperature Source Oral Pulse Rate 78 65 Respiratory Rate 14 16 Blood Pressure 170/91 H 164/97 H Blood Pressure Mean 117 119 Pulse Ox 98 98 Oxygen Delivery Method Room Air Room Air Room Air 02/15/25 02:39 02/15/25 03:00 02/15/25 03:31 Temperature Temperature Source Pulse Rate 70 67 67 Respiratory Rate 15 18 18 Blood Pressure 176/87 H 160/102 H 160/102 H Blood Pressure Mean 116 121 121 Pulse Ox 99 98 96 Oxygen Delivery Method Room Air Room Air Room Air Positive well nourished and well developed General Appearance ED: well developed and NAD HEENT Reports moist mucous membranes normocephalic and atraumatic Eyes General Eye ED: Yes normal appearance of both eyes Neck full ROM Chest Wall Chest: Negative for tenderness Resp normal respiratory effort and normal air movement Effort and Inspection: symmetric chest movement; Negative for respiratory distress Cardio regular rate, regular rhythm and no murmurs Peripheral Pulses: pulses 2+ throughout GI normal to inspection, nondistended, normoactive bowel sounds and non-tender Palpation: Negative for guarding or rebound tenderness present Extremity normal to inspection General Extremety ED: Negative for edema or tenderness General Extremity: Negative for edema Neuro oriented x3, CN's II-XII intact bilaterally and no sensory deficits noted Neuro Narrative: NIH of 0. Sensorium / Orientation: awake and alert Skin no rashes or lesions noted and no wounds MDM MDM MDM Narrative Medical decision making narrative: Interventions / MDM: Differential diagnosis: History of Parkinson's, transient right arm weakness, unsteady gait, TIA Diagnosis considered but do not suspect: Intracranial hemorrhage however CT negative. My EKG interpretation: Sinus rate of 65, no ST changes. QTc 434. Imaging independently reviewed and interpreted by myself: CT brain: No acute process. CT angiogram head and neck: No acute process. External documents reviewed: Last MRI brain scan in 2020. Test considered but not ordered:N/A ED course: Patient weakness unstable gait started 3 AM yesterday nearly 24 hours ago. It improved and reoccurred 8 PM. Reporting unstable gait and balance. Reported difficulty with her right upper extremity that was transient. NIH of 0. Secondary to stroke workup initiated for further evaluation. CT head CT angiogram head and neck for further evaluation. 0340: Image studies negative labs normal EKG sinus rhythm. Urine negative. Initial troponin 19. No chest pains. Repeat pending. Patient was ambulated with her walker she seemed to walk straight however slower than normal confirmed by spouse. I discussed their concerns, she had reported weakness to the right upper extremity which was new along with waxing waning balance and weakness since 3 AM. Discussed possible TIA in the differential. Feel she will benefit for admission for an MRI. I will discuss with hospitalist. Re-evaluation: stable Disposition discussed with patient/family/significant other: Patient and spouse Case discussed with consulting clinician: Hospitalist This note was generated with Dragon dictation software. It may contain incorrect words, spelling, and punctuation that were not noted in checking the note before signing. Lab Data Attestation: I reviewed the patient's lab results. Labs: Laboratory Results - last 24 hr 02/15/25 02/15/25 01:43 03:12 WBC 3.8 L RBC 3.80 L Hgb 12.4 Hct 36.9 L MCV 97.1 MCH 32.6 H MCHC 33.6 RDW Std Deviation 47.3 H RDW Coeff of Milly 13.2 Plt Count 204 MPV 10.3 Immature Gran % (Auto) 0.300 Neut % (Auto) 51.6 Lymph % (Auto) 21.8 [place] % (Auto) 18.9 H Eos % (Auto) 5.8 H Baso % (Auto) 1.6 H Absolute Neuts (auto) 2.0 Absolute Lymphs (auto) 0.83 Nucleated RBC % 0 PT 13.6 INR 1.0 APTT 31.9 Sodium 140 Potassium 3.6 Chloride 105 Carbon Dioxide 24.4 Anion Gap 10 BUN 26 H Creatinine 0.68 L Estim Creat Clear Calc 57.94 Est GFR (MDRD) Non-Af 93 BUN/Creatinine Ratio 38.2 H Glucose 103 H Calcium 9.2 Troponin T High Sens 19 H Urine Color Yellow Urine Clarity Clear Urine pH 7.0 Ur Specific [place] 1.010 Urine Protein 15 H Urine Glucose (UA) Normal Urine Ketones Negative Urine Occult Blood 25 H Urine Nitrite Negative Urine Bilirubin Negative Urine Urobilinogen Normal Ur Leukocyte Esterase Negative Urine RBC 0 SEEN Urine WBC 0 SEEN Ur Squamous Epith Cells 0 SEEN Urine Bacteria RARE Urine Mucus 0 SEEN Radiography Diagnostic Testing: Clinical Impression(s) from Imaging Studies Brain CT 02/15/25 01:56 IMPRESSION: No intracranial hemorrhage, mass effect or CT evidence of large vascular t erritory acute infarct. Age commensurate chronic and involutional changes. Findings verbally reported by myself to Dr. Dejesus at 2:35 a.m. 02/15/2025 Reading Location: [facility] Head/Neck CTA 02/15/25 01:56 IMPRESSION: Undulating vessels. No CTA head or neck flow significant stenosis, dissection, vessel cut off or aneurysm as above. Reading Location: [facility] Discharge Plan Triage Chief Complaint: Neuro S/Sx ED Provider: Drew Dejesus Dx/Rx/DC Orders Prescriptions: No Action magnesium 200 mg tablet 200 mg PO DAILY omega-3 fatty acids 1,000 mg capsule 1,000 mg PO DAILY coenzyme Q10 30 mg capsule 30 mg PO DAILY citalopram [Celexa] 10 mg tablet 10 mg PO DAILY carbidopa-levodopa 25-100 mg tablet extended release 2 tab PO .QID Qty: 240 3RF naproxen 500 mg tablet 500 mg PO BID PRN (Reason: pain) Qty: 60 3RF ropinirole 3 mg tablet 3 mg PO BID Qty: 60 6RF baclofen 10 mg tablet See Rx Instructions .ROUTE .COMPLEX Qty: 180 4RF Rx Instructions: Take 1 tablet orally 3 times daily and 3 tablets nightly multivitamin [Daily Multi-Vitamin] Tablet 1 tab PO DAILY Primary Care Provider: Eleanor Armstrong Referrals: Eleanor Armstrong DO [Primary Care Provider] - Print Language: Greenlandic
[2025-02-15 03:17] LABS: Mucous, Urine 0 SEEN /hpf (<or=2+); Red Blood Cells-Urine 0 SEEN /hpf (0-5); Squamous Epithelial Cells - UA 0 SEEN /hpf (5-10); White Blood Cells 0 SEEN /hpf (0-5)
[2025-02-15 03:33] LABS: Bacteria RARE /hpf (None Seen); Color, Urine Yellow (Yellow); Glucose, Dipstick Normal (Normal); Ketone-Dipstick Negative (Negative); Leukocyte Esterase-Dipstick Negative /ul (Negative); Nitrite-Dipstick Negative (Negative); Occult Blood-Urine 25 /ul (Negative); Protein-Dipstick 15 mg/dl (Negative); Urine Bilirubin Dipstick Negative (Negative); Urine Clarity Clear (Clear); Urine Urobilinogen Normal (Normal)
[2025-02-15 04:36] LABS: Troponin T High Sens 2 HR 20 ng/L (<=14)
--- NOTE | 2025-02-15 04:42 | PCM.HP.STD ---
HPI - General General Date of Admission: 02/15/25 HPI Narrative ANTHONY CHAUDHARY, is a 69 F who presents to the hospital with 24 hours of waxing and waning weakness. She has a history of Parkinson's that was first diagnosed in 2021 and since then she has been tried on multiple different medications. Currently she is on baclofen for what her neurologist believes are spasms as she is complaining of bilateral lower extremity muscle pains, she is also on ropinirole for restless leg syndrome and she is on Sinemet 2 tablets 4 times a day. Approximately 3 AM yesterday morning she had some significant weakness and gait instability and over the last 24 hours she has been having a waxing and waning weakness especially in the right upper extremity. She does have some leadpipe rigidity though the states that this is much improved as well as masked facies. He states that she also used to have a locking gait but the medications have helped with this. She is having outpatient EMG studies done and she states that the her neurologist wants to do more pinpointed nerve conduction studies as well as a possible MRI of her back. In the ER CTA of the head and neck as well as CT of the brain were negative. [facility] Medical History Parkinson disease COVID-19 Acute bronchitis, unspecified Anemia Neck pain Shoulder pain Home Medications ?Medication ?Instructions ?Recorded ?Last Taken ?Type magnesium 200 mg tablet 200 mg PO DAILY 10/27/21 02/13/25 History citalopram 10 mg tablet (Celexa) 10 mg PO DAILY 11/08/22 02/13/25 History coenzyme Q10 30 mg capsule 30 mg PO DAILY 11/08/22 02/13/25 History omega-3 fatty acids 1,000 mg 1,000 mg PO DAILY 11/08/22 02/13/25 History capsule ropinirole 3 mg tablet 3 mg PO BID #60 tabs 11/26/24 02/14/25 Rx carbidopa ER 25 mg-levodopa 100 mg 2 tab PO .QID #240 tabs 01/28/25 02/15/25 Rx tablet,extended release naproxen 500 mg tablet 500 mg PO BID PRN pain #60 tabs 01/28/25 02/14/25 Rx baclofen 10 mg tablet See Rx Instructions .Route 02/14/25 02/14/25 Rx .COMPLEX muscle pain/muscle spasm #180 tabs multivitamin (Daily Multi-Vitamin 1 tab PO DAILY 02/15/25 02/13/25 History tablet) Allergy/AdvReac Type Severity Reaction Status Date / Time No Known Allergies Allergy Verified 02/15/25 06:04 Family History Mother Non-Hodgkin lymphoma Father Alzheimer disease Sister Bone cancer CVA (cerebral vascular accident) Parkinsons disease Grandfather Myocardial infarction Grandfather Myocardial infarction Surgical History No history of previous surgery Social History household members: spouse housing: house Smoking Status: Never smoker second hand exposure: No alcohol intake: current details: socially substance use type: does not use deshaun/yazidi: Mormonism seatbelt use: always ROS Constitutional Constitutional: Denies chills, fatigue, fever(s) or malaise Eyes Eyes: Denies blurry vision ENT HEENT: Denies headache(s) or nasal discharge Cardiovascular Cardiovascular: Denies chest pain, dyspnea on exertion or syncope Respiratory/Chest Respiratory/Chest: Denies cough, shortness of breath at rest or shortness of breath with exertion Gastrointestinal Gastrointestinal: Denies constipation, diarrhea, nausea or vomiting Genitourinary Genitourinary: Denies dysuria Neurologic Neurologic: Reports abnormal gait and focal weakness; Denies numbness or tremor(s) Psychiatric Psychiatric: Denies anxiety or depression Vital Signs Vital Signs Vital Signs: 02/15/25 01:37 02/15/25 01:56 02/15/25 02:00 Temperature 98.2 F Temperature Source Oral Pulse Rate 78 65 Respiratory Rate 14 16 Blood Pressure 170/91 H 164/97 H Blood Pressure Mean 117 119 Pulse Ox 98 98 Oxygen Delivery Method Room Air Room Air Room Air 02/15/25 02:39 02/15/25 03:00 02/15/25 03:31 Temperature Temperature Source Pulse Rate 70 67 67 Respiratory Rate 15 18 18 Blood Pressure 176/87 H 160/102 H 160/102 H Blood Pressure Mean 116 121 121 Pulse Ox 99 98 96 Oxygen Delivery Method Room Air Room Air Room Air 02/15/25 04:25 02/15/25 04:26 Temperature 98.5 F 98.5 F Temperature Source Oral Pulse Rate 66 66 Respiratory Rate 16 16 Blood Pressure 168/91 H 168/91 H Blood Pressure Mean 116 116 Pulse Ox 99 99 Oxygen Delivery Method Room Air Weight Weight: 125 lb 7.088 oz Body Mass Index (BMI) 20.8 Physical Exam Narrative General: Alert, Oriented x3, Cooperative, No apparent distress HEENT: Atraumatic, PERRLA, EOMI, Normocephalic Oral: Moist Mucosa Neck: Supple, No JVD Lungs: Diminished, Normal air movement, No rhonchi, No wheeze, No rales Cardiovascular: Regular rate, Regular Rhythm, Normal S1, Normal S2, No murmurs Abdomen: Soft, Non Tender, Non-Distended, No Hepato-splenomegaly Extremities: No edema, Capillary Refill Less than 3 Seconds Skin: No rashes, No breakdown Musculoskeletal: Minimal tenderness to palpation of her bilateral calfs and thighs Neurological: No obvious focal neurological deficits, she has generalized weakness with leadpipe rigidity Psych/Mental Status: Flat Results Lab / Micro Data 02/15/25 01:43 02/15/25 01:43 Labs: Laboratory Results - last 24 hr 02/15/25 01:43: WBC 3.8 L, RBC 3.80 L, Hgb 12.4, Hct 36.9 L, MCV 97.1, MCH 32.6 H, MCHC 33.6, RDW Std Deviation 47.3 H, RDW Coeff of Milly 13.2, Plt Count 204, MPV 10.3, Immature Gran % (Auto) 0.300, Neut % (Auto) 51.6, Lymph % (Auto) 21.8, [place] % (Auto) 18.9 H, Eos % (Auto) 5.8 H, Baso % (Auto) 1.6 H, Absolute Neuts (auto) 2.0, Absolute Lymphs (auto) 0.83, Nucleated RBC % 0, PT 13.6, INR 1.0, APTT 31.9, Sodium 140, Potassium 3.6, Chloride 105, Carbon Dioxide 24.4, Anion Gap 10, BUN 26 H, Creatinine 0.68 L, Estim Creat Clear Calc 57.94, Est GFR (MDRD) Non-Af 93, BUN/Creatinine Ratio 38.2 H, Glucose 103 H, Calcium 9.2, Troponin T High Sens 19 H 02/15/25 03:12: Urine Color Yellow, Urine Clarity Clear, Urine pH 7.0, Ur Specific [place] 1.010, Urine Protein 15 H, Urine Glucose (UA) Normal, Urine Ketones Negative, Urine Occult Blood 25 H, Urine Nitrite Negative, Urine Bilirubin Negative, Urine Urobilinogen Normal, Ur Leukocyte Esterase Negative, Urine RBC 0 SEEN, Urine WBC 0 SEEN, Ur Squamous Epith Cells 0 SEEN, Urine Bacteria RARE, Urine Mucus 0 SEEN 02/15/25 03:45: Troponin T Hi Sens 2 Hr 20 H Imaging Radiology Impression Brain CT 02/15/25 01:56 IMPRESSION: No intracranial hemorrhage, mass effect or CT evidence of large vascular territory acute infarct. Age commensurate chronic and involutional changes. Findings verbally reported by myself to Dr. Dejesus at 2:35 a.m. 02/15/2025 Reading Location: [id number] Head/Neck CTA 02/15/25 01:56 IMPRESSION: Undulating vessels. No CTA head or neck flow significant stenosis, dissection, vessel cut off or aneurysm as above. Reading Location: [facility] Assessment & Plan Assessment/Plan (1) Weakness of right upper extremity: (2) Gait instability: PLAN: Plan 1. Waxing and waning right upper extremity weakness with generalized gait instability in the setting of Parkinson's disease ? Will continue with her home Parkinson's medications including Sinemet, baclofen, ropinirole ? Continue with the stroke protocol with an MRI and echocardiogram ? Will consult neurology for input on possible stroke syndrome as well as her generalized gait issues with her Parkinson's disease ? Continue with aspirin and Lipitor 2. Anxiety/depression ? Stable ? Continue escitalopram DVT: SCDs Charges/Coding Visit Charges Inpatient E&M: 10780 Init Hosp L2
--- NOTE | 2025-02-15 05:35 | MRI_ITS ---
PROCEDURE: BRAIN WITHOUT CONTRAST 02/15/2025 REASON FOR EXAM: WEAKNESS TECHNIQUE: Noncontrast brain MRI. Multiplanar and multisequence images were obtained. COMPARISON: None FINDINGS: Brain: No acute intracranial hemorrhage or infarction. No mass effect. No midline shift. Mild chronic microvascular ischemic changes. Ventricles: Unremarkable. Sinuses: Unremarkable Mastoids: Unremarkable MRI/Brain without Contrast IMPRESSION: No acute intracranial process. Mild chronic microvascular ischemic changes. Reading Location: [id number]
--- NOTE | 2025-02-15 05:35 | ECHOD_ITS ---
Reason For Study Reason For Study: TIA/CVA Procedure This was a 2D Doppler, Color Flow transthoracic echocardiogram. The study was technically difficult. Exam performed portable in patient room. Left Ventricle Normal left ventricle. The estimated ejection fraction is 55???60 %. Right Ventricle Normal right ventricle. Normal systolic function. Atria Normal left atrium. Normal right atrium. Mitral Valve There is mild mitral annular calcification. Tricuspid Valve Normal tricuspid valve. Aortic Valve Trisinus/trileaflet aortic valve. Pulmonic Valve The pulmonic valve is not well visualized. Great Vessels Normal sized aortic root. Pericardium/Pleural No pericardial effusion. MMode/2D Measurements & Calculations LVIDd: 3.9 cm IVSd: 0.80 cm LAV(MOD- bp): 56.7 ml LVIDs: 2.5 cm LVPWd: 0.86 cm LAV(MOD- bp) Indexed: 35.0 ml/m2 FS: 37.4 % LAV(MOD- sp2): 78.7 ml LAV(MOD- sp4): 34.5 ml SV(MOD- sp4): 52.5 ml LVAd ap4: 26.6 cm2 LVAd ap2: 21.7 cm2 LVLd ap4: 7.0 cm LVLd ap2: 7.8 cm SI(MOD- sp4): 32.4 ml/m2 EDV(MOD-sp4): 81.5 ml EDV(MOD-sp2): 51.3 ml EDV(sp4-el): 85.2 ml EDV(sp2-el): 51.1 ml LVAs ap4: 13.7 cm2 LVAs ap2: 10.7 cm2 LVLs ap4: 5.7 cm LVLs ap2: 6.5 cm ESV(MOD-sp4): 29.0 ml ESV(MOD-sp2): 17.0 ml ESV(sp4-el): 27.9 ml ESV(sp2-el): 15.1 ml EF(MOD-sp4): 64.4 % EF(MOD-sp2): 66.8 % EF(sp4-el): 67.2 % SV(MOD-sp2): 34.2 ml SV(sp4-el): 57.3 ml LA A4 area: 15.1 cm2 SI(MOD-sp2): 21.1 ml/m2 LA dimension(2D): 3.9 cm TAPSE: 1.9 cm RA A4 area: 18.5 cm2 Time Measurements MV dec time: 0.24 sec Doppler Measurements & Calculations MV E max kalyan: 78.8 cm/sec Lat Peak E' Kalyan: 8.9 cm/sec Med Peak E' Kalyan: 8.4 cm/sec MV A max kalyan: 64.9 cm/sec E/E' lat: 8.8 E/E' med: 9.4 MV E/A: 1.2 MV V2 max: 72.1 cm/sec MV P1/2t max kalyan: 77.4 cm/sec Ao V2 max: 139.1 cm/sec MV max P.1 mmHg MV P1/2t: 71.5 msec Ao max P.7 mmHg MV V2 mean: 38.2 cm/sec MV dec slope: 316.8 cm/sec2 Ao V2 mean: 93.4 cm/sec MV mean P.70 mmHg Ao mean P.9 mmHg MV V2 VTI: 22.0 cm MVA(P1/2t): 3.1 cm2 Ao V2 VTI: 29.5 cm AV (velocity ratio): 0.63 LV V1 max: 85.2 cm/sec PA V2 max: 73.9 cm/sec TR max kalyan: 209.8 cm/sec LV V1 max P.9 mmHg TR max P.6 mmHg LV V1 mean P.4 mmHg LV V1 mean: 56.2 cm/sec LV V1 VTI: 18.7 cm ECHO/Echo Complete Interpretation Summary The estimated ejection fraction is 55???60 %. Normal LV systolic function No significant valve abnormality No previous echocardiogram to compare Ordering Physician: Marvin Becerril Referring Physician: Eleanor Armstrong Performed By: Ara Bailey, LENYCS, RVT
[2025-02-15] MEDS: Baclofen 10 MG Tablet PO ×3 (06:23→15:38)
[2025-02-15] MEDS: CARBIDOPA/LEVODOPA CR 50/200 Tablet PO ×4 (06:23→21:19)
[2025-02-15] MEDS: Acetaminophen 500 MG Tablet 1000 MG PO ×3 (06:23→20:13)
[2025-02-15 07:39] LABS: Cholesterol 273 mg/dL (<=200); High Density Lipoprotein 105 mg/dL; Low Density Lipoprotein Calc. 160 mg/dL; Triglycerides 40 mg/dL; Very Low Density Lipoprotein 8 mg/dL (5-40)
[2025-02-15 07:43] LABS: Troponin T High Sens 4 HR 19 ng/L (<=14)
--- NOTE | 2025-02-15 09:23 | NEURO.CONS ---
Assessment and Plan: Neuro Assessment/Plan ANTHONY CHAUDHARY is a 69 F with a past medical history of parkinsons disease, being evaluated by Teleneurology for leg pains/stiffness and trouble walking. These are chronic issues, seem to worsen when her sinemet is wearing off. There was reports of right sided weakness but on my examination she has full strength throughout. Exam findings consistent with parkinsonism, symptoms predominantly rigidity today. No symptoms to suggest an underlying neuropathy/neuropathic pain although small fiber neuropathy could be considered if she does develop neuropathic symptoms. Diagnosis: Parkinson's disease Plan: Increase Sinemet 2 tab to 5 times daily - 6a/9a/12/3p/6p No need for MRI from neurology standpoint Would consider referral to movement disorder specialist PT evaluation Neurology will sign off I personally attended this patient and spent a total time of 37 minutes evaluating this patient including clinical assessment, review of chart, medical history imaging, and determining appropriate treatment and workup. HPI Consult Data Date of Consult: 02/15/25 HPI Narrative HPI Narrative: ANTHONY CHAUDHARY, is a 69 F who presents with pain in her feet. Reported yesterday that she had new weakness in her right arm, but she denies this. Reports she has had pain in her legs for some time but feels that is worse. She describes this as pressure feeling like her toes are very tight and painful. She does take baclofen as needed which may help. She has a history of PD and is on Sinemet - currently on 25/100 2 tabs QID. She has reports significant benefit from this, but it does wear off. When it wears off she gets more stiff and has worsening of the pain/cramping in her legs/feet. She denies burning, tingling and new weakness. [facility] Medical History Parkinson disease COVID-19 Acute bronchitis, unspecified Anemia Neck pain Shoulder pain Home Medications ?Medication ?Instructions ?Recorded ?Last Taken ?Type magnesium 200 mg tablet 200 mg PO DAILY 10/27/21 02/13/25 History citalopram 10 mg tablet (Celexa) 10 mg PO DAILY 11/08/22 02/13/25 History coenzyme Q10 30 mg capsule 30 mg PO DAILY 11/08/22 02/13/25 History omega-3 fatty acids 1,000 mg 1,000 mg PO DAILY 11/08/22 02/13/25 History capsule ropinirole 3 mg tablet 3 mg PO BID #60 tabs 11/26/24 02/14/25 Rx carbidopa ER 25 mg-levodopa 100 mg 2 tab PO .QID #240 tabs 01/28/25 02/15/25 Rx tablet,extended release naproxen 500 mg tablet 500 mg PO BID PRN pain #60 tabs 01/28/25 02/14/25 Rx baclofen 10 mg tablet See Rx Instructions .Route 02/14/25 02/14/25 Rx .COMPLEX muscle pain/muscle spasm #180 tabs multivitamin (Daily Multi-Vitamin 1 tab PO DAILY 02/15/25 02/13/25 History tablet) Allergy/AdvReac Type Severity Reaction Status Date / Time No Known Allergies Allergy Verified 02/15/25 06:04 Family History Mother Non-Hodgkin lymphoma Father Alzheimer disease Sister Bone cancer CVA (cerebral vascular accident) Parkinsons disease Grandfather Myocardial infarction Grandfather Myocardial infarction Surgical History No history of previous surgery Social History household members: spouse housing: house Smoking Status: Never smoker second hand exposure: No alcohol intake: current details: socially substance use type: does not use deshaun/sikhism: Jehovah'S Witness seatbelt use: always Vital Signs Vital Signs Vital Signs: 02/15/25 01:37 02/15/25 01:56 02/15/25 02:00 Temperature 98.2 F Temperature Source Oral Pulse Rate 78 65 Pulse Strength Respiratory Rate 14 16 Respiratory Effort Respiratory Depth Respiratory Pattern Blood Pressure 170/91 H 164/97 H Blood Pressure Mean 117 119 Blood Pressure Source Blood Pressure Position Blood Pressure Location Pulse Ox 98 98 Oxygen Delivery Method Room Air Room Air Room Air 02/15/25 02:39 02/15/25 03:00 02/15/25 03:31 Temperature Temperature Source Pulse Rate 70 67 67 Pulse Strength Respiratory Rate 15 18 18 Respiratory Effort Respiratory Depth Respiratory Pattern Blood Pressure 176/87 H 160/102 H 160/102 H Blood Pressure Mean 116 121 121 Blood Pressure Source Blood Pressure Position Blood Pressure Location Pulse Ox 99 98 96 Oxygen Delivery Method Room Air Room Air Room Air 02/15/25 04:25 02/15/25 04:26 02/15/25 05:00 Temperature 98.5 F 98.5 F Temperature Source Oral Pulse Rate 66 66 62 Pulse Strength Respiratory Rate 16 16 16 Respiratory Effort Respiratory Depth Respiratory Pattern Blood Pressure 168/91 H 168/91 H 127/77 H Blood Pressure Mean 116 116 93 Blood Pressure Source Blood Pressure Position Blood Pressure Location Pulse Ox 99 99 98 Oxygen Delivery Method Room Air Room Air 02/15/25 05:46 02/15/25 06:00 02/15/25 07:48 Temperature 97.8 F Temperature Source Oral Pulse Rate 73 Pulse Strength Normal (2+) Respiratory Rate 16 Respiratory Effort Normal Non-Labored Respiratory Depth Normal Respiratory Pattern Normal Blood Pressure 169/100 H Blood Pressure Mean 123 Blood Pressure Source Monitor Blood Pressure Position Semi-Fowlers Blood Pressure Location Right Arm Pulse Ox 97 Oxygen Delivery Method Room Air Room Air 02/15/25 07:48 02/15/25 09:16 Temperature Temperature Source Pulse Rate Pulse Strength Respiratory Rate Respiratory Effort Normal Non-Labored Respiratory Depth Normal Respiratory Pattern Normal Blood Pressure Blood Pressure Mean Blood Pressure Source Blood Pressure Position Blood Pressure Location Pulse Ox 94 Oxygen Delivery Method Room Air Room Air Weight Weight: 54.5 kg Body Mass Index (BMI) 20.0 EEG Results Procedure Details EEG Procedure Details: ANTHONY CHAUDHARY is a 69 year old F with a past medical history of , who presents for evaluation of Electroencephalogram on DATE at TIME Physical Exam Neuro oriented x3 and CN's II-XII intact bilaterally Neuro Narrative: Decreased facial expression/blink rate. Neck stiffness. Decrement with finger tap L>R. Sensorium / Orientation: awake, alert, oriented to person, oriented to place and oriented to time Cranial Nerves: CN normal except as noted Sensory Exam: extremities light-touch: normal (normal throghout) Motor Exam: strength 5/5 throughout, no pronator drift, no tremor and muscle tone abnormal other: LUE, RLE and LLE (Increased tone in the LUE>LLE>RLE) Coordination: [id number] test normal Lab / Micro Data 02/15/25 01:43 02/15/25 01:43 Labs: Laboratory Results - last 24 hr 02/15/25 01:43: WBC 3.8 L, RBC 3.80 L, Hgb 12.4, Hct 36.9 L, MCV 97.1, MCH 32.6 H, MCHC 33.6, RDW Std Deviation 47.3 H, RDW Coeff of Milly 13.2, Plt Count 204, MPV 10.3, Immature Gran % (Auto) 0.300, Neut % (Auto) 51.6, Lymph % (Auto) 21.8, [place] % (Auto) 18.9 H, Eos % (Auto) 5.8 H, Baso % (Auto) 1.6 H, Absolute Neuts (auto) 2.0, Absolute Lymphs (auto) 0.83, Nucleated RBC % 0, PT 13.6, INR 1.0, APTT 31.9, Sodium 140, Potassium 3.6, Chloride 105, Carbon Dioxide 24.4, Anion Gap 10, BUN 26 H, Creatinine 0.68 L, Estim Creat Clear Calc 57.94, Est GFR (MDRD) Non-Af 93, BUN/Creatinine Ratio 38.2 H, Glucose 103 H, Calcium 9.2, Troponin T High Sens 19 H 02/15/25 03:12: Urine Color Yellow, Urine Clarity Clear, Urine pH 7.0, Ur Specific [place] 1.010, Urine Protein 15 H, Urine Glucose (UA) Normal, Urine Ketones Negative, Urine Occult Blood 25 H, Urine Nitrite Negative, Urine Bilirubin Negative, Urine Urobilinogen Normal, Ur Leukocyte Esterase Negative, Urine RBC 0 SEEN, Urine WBC 0 SEEN, Ur Squamous Epith Cells 0 SEEN, Urine Bacteria RARE, Urine Mucus 0 SEEN 02/15/25 03:45: Troponin T Hi Sens 2 Hr 20 H 02/15/25 06:40: Troponin T Hi Sens 4Hr 19 H, Triglycerides 40, Cholesterol 273 H, LDL Cholesterol, Calc 160, VLDL Cholesterol 8, HDL Cholesterol 105, Cholesterol/HDL Ratio 2.60 Imaging Radiology Impression Brain CT 02/15/25 01:56 IMPRESSION: No intracranial hemorrhage, mass effect or CT evidence of large vascular territory acute infarct. Age commensurate chronic and involutional changes. Findings verbally reported by myself to Dr. Dejesus at 2:35 a.m. 02/15/2025 Reading Location: [id number] Head/Neck CTA 02/15/25 01:56 IMPRESSION: Undulating vessels. No CTA head or neck flow significant stenosis, dissection, vessel cut off or aneurysm as above. Reading Location: [facility] Active Medications Active Medications Active Medications: Current Medications Generic Name Dose Route Start Last Admin Trade Name Freq PRN Reason Stop Dose Admin Acetaminophen 1,000 mg 02/15/25 06:00 02/15/25 06:23 Acetaminophen 500 Mg Tablet PO 1,000 mg Q8 JENNY Administration Aspirin 81 mg 02/15/25 08:00 Aspirin 81 Mg Tab.Chew PO BREAKFAST JENNY Atorvastatin Calcium 80 mg 02/15/25 22:00 Atorvastatin Calcium 80 Mg Tablet PO QHS JENNY Baclofen 10 mg 02/15/25 06:00 02/15/25 06:23 Baclofen 10 Mg Tablet PO 10 mg 0600,1200,1600 JENNY Administration Baclofen 30 mg 02/15/25 22:00 Baclofen 10 Mg Tablet PO QHS JENNY Carbidopa/Levodopa 1 tablet 02/15/25 07:00 02/15/25 06:23 Carbidopa/Levodopa Cr 50/200 Tablet PO 1 tablet ACHS JENNY Administration Citalopram Hydrobromide 10 mg 02/15/25 10:00 Citalopram 10 Mg Tablet PO DAILY JENNY Hydralazine HCl 5 mg 02/15/25 05:35 Hydralazine 20 Mg/Ml Vial IV 02/16/25 05:35 Q30M PRN maintain BP parameters with HR <60 Sodium Chloride 250 mls @ 15 mls/hr 02/15/25 06:03 IV .[id number] PRN Saline Flush Sodium Chloride 250 mls @ 15 mls/hr 02/15/25 06:03 IV .[id number] PRN Additional IVPB Infusion Labetalol HCl 10 - 20 mg 02/15/25 05:35 Labetalol 20 Mg/4 Ml Vial IV 02/16/25 05:35 Q10M PRN PRN maintain BP parameters with HR >/=60 Pramipexole Dihydrochloride 1.5 mg 02/15/25 10:00 Pramipexole Di-Hcl 0.5 Mg Tablet PO BID JENNY Sodium Chloride 10 - 40 ml 02/15/25 06:03 0.9% Saline Lock 10 Ml Syringe IV UD PRN SALINE FLUSH NIHSS NIHSS Nursing Documentation NIHSS Nursing Documentation: NIH Stroke Scale Start: 02/15/25 01:47 Freq: Status: Discharge Protocol: Activity Type Activity Date Activity User E-sign Co-sign Detail Recorded Client Recorded Date Recorded By Document 02/15/25 01:47 ET [facility] 02/15/25 01:48 ET 02/15/25 01:47 NIH Stroke Scale [NIHSS] A score of 0 is normal or asymptomatic . Total possible score is 42. Inpatient: RN or Physician to activate a stroke alert for onset of new stroke symptoms or with NIHSS increase >/= 3 points. Following change in neurological status, NIHSS will be performed per physician order or more frequently PRN. -1a. Level of Consciousness 0 - Alert; keenly responsive -1b. LOC Questions 0 - Answers BOTH questions correctly -1c. LOC Commands 0 - Performs BOTH tasks correctly -2. Best Gaze 0 - Normal -3. Visual 0 - No visual loss -4. Facial Palsy 0 - Normal symmetrical movements -5a. Left Arm 0 - No drift; arm holds 90 ( or 45) degrees for full 10 seconds -5b. Right Arm 0 - No drift; arm holds 90 ( or 45) degrees for full 10 seconds -6a. Left Leg 1 - Drift; leg falls by the end of 5- seconds, but does not hit bed -6b. Right Leg 1 - Drift; leg falls by the end of 5- seconds, but does not hit bed -7. Limb Ataxia 2 - Present in 2 limbs -8. Sensory 1 - Mild-to- moderate sensory loss; -9. Best Language 0 - No aphasia; normal -10. Dysarthria 0 - Normal -11. Extinction and Inattention 0 - No abnormality -Total 5 Query Text:A score of 0 is normal or asymptomatic. Total possible score is 42 . ED: Notify Physician for NIHSS increase by > / = 3 points. Inpatient: RN or Physician to activate a stroke alert for NIHSS increase of > / = 3 points. NIHSS: Ischemic Stroke/TIA Start: 02/15/25 05:35 Text: For PCU Patients: NIH and Neuro Check every 4 Status: Active hours, PRN and with change in RN caregiver. Freq: [id number] Protocol: Activity Type Activity Date Activity User E-sign Co-sign Detail Recorded Client Recorded Date Recorded By Document 02/15/25 05:46 BARBARA desktop 02/15/25 05:47 BARBARA 02/15/25 05:46 -1a. Level of Consciousness 0 - Alert; keenly responsive -1b. LOC Questions 0 - Answers BOTH questions correctly -1c. LOC Commands 0 - Performs BOTH tasks correctly -2. Best Gaze 0 - Normal -3. Visual 0 - No visual loss -4. Facial Palsy 1 - Minor paralysis ( flattened nasolabial fold , asymmetry on smiling) -5a. Left Arm 0 - No drift; arm holds 90 ( or 45) degrees for full 10 seconds -5b. Right Arm 0 - No drift; arm holds 90 ( or 45) degrees for full 10 seconds -6a. Left Leg 0 - No drift; leg holds 30- degree position for full 5 seconds -6b. Right Leg 0 - No drift; leg holds 30- degree position for full 5 seconds -7. Limb Ataxia 1 - Present in 1 limb -8. Sensory 0 - Normal; no sensory loss -9. Best Language 0 - No aphasia; normal -10. Dysarthria 0 - Normal -11. Extinction and Inattention 0 - No abnormality -Total 2 Query Text:A score of 0 is normal or asymptomatic. Total possible score is 42 . ED: Notify Physician for NIHSS increase by > / = 3 points. Inpatient: RN or Physician to activate a stroke alert for NIHSS increase of > / = 3 points. Coma Scale [Assess] -Eye Opening Spontaneous -Motor Obeys Commands -Verbal Oriented [Total] -Coma Scale Total 15
[2025-02-15 10:03] LABS: Bedside Glucose 92 mg/dL (74-106)
[2025-02-15 10:03] LABS: Bedside Glucose 84 mg/dL (74-106)
[2025-02-15] MEDS: Pramipexole Di-HCl 0.5 MG Tablet 1.5 MG PO ×2 (10:04→20:14)
[2025-02-15] MEDS: Aspirin 81 MG TAB.CHEW PO (10:05)
[2025-02-15] MEDS: Citalopram 10 MG Tablet PO (10:05)
--- NOTE | 2025-02-15 10:17 | CASEMGMT ---
Discharge Planning A list of?RU providers including quality and resource use data and consistent with the patient's preferred geographic region, medical needs, and insurance network was created in [employer].? This list was provided to the SW. Antonia Ace Discharge Planning Asst.
--- NOTE | 2025-02-15 10:49 | CASEMGMT ---
Social Work SW met w/pt, pt completed PHQ-9 w/SW. Pt scored a 6, however did answer that at times over the last week she has thought she would be better off . SW inquired if she has ever felt this way before, she states no. SW asked if she has any plan to harm herself, pt states no. Pt states this just started the last week when her health declined. She states concern about burdening her family. Pt states would not kill herself, she has no plan. Pt expressed frustration with her decline in health, and attributes her feeling upset and down to her health decline. She explained that the doctors do not think that she had a stroke. She is wondering how her Parkinson's Disease will progress, and even asked how will I ? Pt does see a neurologist, SW encouraged pt to speak w/her physician about the progression of Parkinson's. Pt states over the last week she has had more confusion, has had an increase in pain the last two days. She states she used to be so independent, and now needs more help. This is difficult for her. She states she told her over the last couple of days she needed more help, and her brought her to the emergency room. Support offered to pt around her disease progression. Pt states that she has never been diagnosed w/depression or anxiety, never been in counseling. Pt states she takes a mild med that she has taken for years, cannot recall the name of it. (Pt is on Citalopram, 10mg/day, as per home med list.) She is not certain if it helps or not as she has been on it for so long. Pt is open to counseling resources. Pt states her is supportive, he helps with cooking, cleaning, driving, medications. He has two children who are local, Jose and Ray. She also has a son Lg and his long time girlfriend Pily who are supportive. Pt has a daughter Debbie in [place] as well, however pt does not see her often. SW explained will bring her a list of counseling resources for the area. SW will follow up later today to see if pt would like SW to make an appt. SW will continue to follow. Pt thanked SW for speaking w/her about what is going on w/her. GERMAN Shah
--- NOTE | 2025-02-15 11:07 | CASEMGMT ---
Social Work SW spoke w/pt about going somewhere for rehab after her hospital stay. SW provided to pt a list of rehab facilities, educated pt on what would be involved in going to an inpt rehab facility. Pt would like to speak w/her and will let SW know. She states her should be here soon, so SW will check back later today. GERMAN Shah
--- NOTE | 2025-02-15 15:37 | PN_ITS ---
Subjective Subjective Patient seen and examined. She had no active complaints. She was admitted with a complaint of waxing and waning weakness and concerns for stroke. She still complains of the weakness today though she says it has improve today. Review of systems is otherwise negative. MRI of the brain done was negative for any evidence of a stroke. SHe has remained hemodynamically stable. Objective Data Objective Data Vital Signs: Vital Signs Temp Pulse Resp BP Pulse Ox O2 Del Method 98.5 F 66 16 168/91 H 99 Room Air 02/15/25 15:35 02/15/25 15:35 02/15/25 15:35 02/15/25 15:35 02/15/25 15:35 02/15/25 15:35 Oxygen Delivery Method Room Air Weight: 120 lb 2.431 oz Body Mass Index (BMI) 20.0 Intake & Output: Intake and Output for Last 24 Hours 02/13/25 02/14/25 02/15/25 23:59 23:59 23:59 Intake Total 120 / 120 Output Total 250 / 250 Balance -130 / -130 Lab / Micro Data 02/15/25 01:43 02/15/25 01:43 Labs: Laboratory Results - last 24 hr 02/15/25 01:43: WBC 3.8 L, RBC 3.80 L, Hgb 12.4, Hct 36.9 L, MCV 97.1, MCH 32.6 H, MCHC 33.6, RDW Std Deviation 47.3 H, RDW Coeff of Milly 13.2, Plt Count 204, MPV 10.3, Immature Gran % (Auto) 0.300, Neut % (Auto) 51.6, Lymph % (Auto) 21.8, [place] % (Auto) 18.9 H, Eos % (Auto) 5.8 H, Baso % (Auto) 1.6 H, Absolute Neuts (auto) 2.0, Absolute Lymphs (auto) 0.83, Nucleated RBC % 0, PT 13.6, INR 1.0, APTT 31.9, Sodium 140, Potassium 3.6, Chloride 105, Carbon Dioxide 24.4, Anion Gap 10, BUN 26 H, Creatinine 0.68 L, Estim Creat Clear Calc 57.94, Est GFR (MDRD) Non-Af 93, BUN/Creatinine Ratio 38.2 H, Glucose 103 H, Calcium 9.2, T roponin T High Sens 19 H 02/15/25 01:49: POC Glucose 92 02/15/25 01:59: POC Glucose 84 02/15/25 03:12: Urine Color Yellow, Urine Clarity Clear, Urine pH 7.0, Ur Specific [place] 1.010, Urine Protein 15 H, Urine Glucose (UA) Normal, Urine Ketones Negative, Urine Occult Blood 25 H, Urine Nitrite Negative, Urine Bilirubin Negative, Urine Urobilinogen Normal, Ur Leukocyte Esterase Negative, Urine RBC 0 SEEN, Urine WBC 0 SEEN, Ur Squamous Epith Cells 0 SEEN, Urine Bacteria RARE, Urine Mucus 0 SEEN 02/15/25 03:45: Troponin T Hi Sens 2 Hr 20 H 02/15/25 06:40: Troponin T Hi Sens 4Hr 19 H, Triglycerides 40, Cholesterol 273 H , LDL Cholesterol, Calc 160, VLDL Cholesterol 8, HDL Cholesterol 105, Cholesterol/HDL Ratio 2.60 Radiography Diagnostic Testing: Radiology Impression Brain CT 02/15/25 01:56 IMPRESSION: No intracranial hemorrhage, mass effect or CT evidence of large vascular territory acute infarct. Age commensurate chronic and involutional changes. Findings verbally reported by myself to Dr. Dejesus at 2:35 a.m. 02/15/2025 Reading Location: [facility] Head/Neck CTA 02/15/25 01:56 IMPRESSION: Undulating vessels. No CTA head or neck flow significant stenosis, dissection, vessel cut off or aneurysm as above. Reading Location: [facility] Brain MRI 02/15/25 05:35 IMPRESSION: No acute intracranial process. Mild chronic microvascular ischemic changes. Reading Location: [facility] Physical Exam Const alert, oriented x3 and no apparent distress Constitutional Narrative: flat affect General Appearance: cooperative HEENT normocephalic, moist oral mucous membranes and oropharynx normal Eyes EOMs intact bilaterally Neck supple and no JVD Lymph Lymphatic: no lymphedema noted Resp normal respiratory effort, normal air movement and clear to auscultation bilaterally Cardio regular rate, regular rhythm, S1 normal heart sound, S2 normal heart sound and no murmurs GI normal to inspection, nondistended, normoactive bowel sounds, soft to palpation, non-tender and non-distended Extremity normal capillary refill, no clubbing, cyanosis or edema and no calf tenderness General Extremity: no tenderness to palpation of joints or extremities Skin General Skin Exam: no breakdown Neuro no focal motor deficits Neuro Narrative: flat, masked like facies. Motor Exam: general weakness Psych cooperative Mood & Affect: flat affect Assessment & Plan Assessment/Plan (1) Gait instability: (2) Parkinson's disease: QUALIFIERS: Dyskinesia presence: without dyskinesia Fluctuating manifestations: with fluctuating manifestations Qualified Code(s): G20.A2 - Parkinson's disease without dyskinesia, with fluctuations PLAN: Plan #RUE weakness and generaliwed weakness and instability * [place] to be due to Parkinson's disease. CT of the brain showed no acute intracranial pathology. MRI of the brain done also showed no evidence of a stroke. * Neurology was consulted and did not think MRI of the brain was needed. On Sinemet qid. Neurology recommended that Sinemet be switched to 5 times daily. * To follow-up with her neurologist on outpatient basis. Already on aspirin and Lipitor * also on baclofen. * #Anxiety and depression: on escitalopram DVT prophylaxis: SCDs Disposition: evaluated by PT.OT and deemed as needing placement. Case management on board to help with placement. Charges/Coding Visit Charges Inpatient E&M: 74564 Subs Hosp L2
[2025-02-15] MEDS: Atorvastatin Calcium 80 MG Tablet PO (20:13)
[2025-02-15] MEDS: Baclofen 10 MG Tablet 30 MG PO (21:20)
[2025-02-16 03:45] VITALS: BP 115/76; PULSE 63; RESP 18; TEMP 36.8; O2SAT 94
[2025-02-16 05:17] LABS: Absolute Neutrophil Count 2.4 X10^3/uL (2.0-7.7); Basophil# 0.04 X10^3/uL; Basophil% 0.9 % (0-1); Eosinophil# 0.21 X10^3/uL; Eosinophils% 4.6 % (0-5); Hematocrit 36.3 % (37-47); Hemoglobin 12.2 g/dL (12.0-15.0); Lymphocyte % 28.8 % (19-41); Mean Corp Hgb Conc 33.6 g/dL (32-36); Mean Corpuscular Hgb 32.6 pg (27.0-32.0); Mean Corpuscular Volume 97.1 fL (81-99); Mean Platelet Vol. 10.2 fl (6.2-12.0); Monocyte# 0.54 X10^3/uL; Monocyte% 11.9 % (0-10); NRBC Flagged by Analyzer 0 % (0-5); Neutrophil # 2.43 X10^3/uL (2.7-7.7); Neutrophil % 53.8 % (47-70); Platelet Count 199 K/mm3 (150-450); RBC Distribution Width CV 12.9 % (11.6-14.6); RBC Distribution Width SD 46.5 fl (35.1-43.9); Red Blood Count 3.74 M/mm3 (4.2-5.4); White Blood Count 4.5 K/mm3 (4.4-11.0)
[2025-02-16 05:49] LABS: Anion Gap 10 (5-15); BUN 24 mg/dL (4-19); BUN/Creat Ratio 40.2 RATIO (10-20); Calcium,Total 9.4 mg/dL (7.6-11.0); Carbon Dioxide 22.5 mmol/L (21.0-32.0); Chloride 105 mmol/L (98-108); EST Glomerular Filtration Rate 96 (>60); Estimated Creatinine Clearance 55.49 ml/min (50-250); Glucose 110 mg/dL (70-99); Potassium 3.7 mmol/L (3.3-5.1); Sodium Level 138 mmol/L (133-145)
[2025-02-16] MEDS: Acetaminophen 500 MG Tablet 1000 MG PO (06:17)
[2025-02-16] MEDS: CARBIDOPA/LEVODOPA CR 50/200 Tablet PO ×2 (06:17→09:11)
[2025-02-16] MEDS: Baclofen 10 MG Tablet PO ×2 (06:17→11:59)
[2025-02-16 07:25] VITALS: O2SAT 94
--- NOTE | 2025-02-16 09:00 | CASEMGMT ---
Social Work SW met w/pt in regard to discharge plan. Pt would prefer to go home rather than go to rehab. Pt's had informed RN yesterday the same. SW spoke w/pt about home health care for therapy. Pt would prefer to go to [facility] for therapy, thinks it would be more beneficial. SW also spoke w/pt about following up with a mental health appt. SW explained cannot make her an appt today as it is Tuesday, but encouraged her to follow up to make herself an appt. Pt states understanding, thanked SW. SW spoke w/CM, who will follow up regarding outpt PT/OT for pt. GERMAN Shah
[2025-02-16 09:07] VITALS: BP 131/83; PULSE 67; RESP 16; TEMP 36.6; O2SAT 96
[2025-02-16] MEDS: Citalopram 10 MG Tablet PO (09:10)
[2025-02-16] MEDS: Pramipexole Di-HCl 0.5 MG Tablet 1.5 MG PO (09:10)
[2025-02-16] MEDS: Aspirin 81 MG TAB.CHEW PO (09:11)
--- NOTE | 2025-02-16 09:38 | CASEMGMT ---
SCARLET CM in to discuss SANTIAGO form with patient. RN CM explained S[employer]O form, patient voiced understanding. Pt signed form and filed in chart. Pt provided with a copy of signed SANTI[employer]O form. Patient had no further questions or concerns at this time.
--- NOTE | 2025-02-16 11:00 | DCINST_ITS ---
Discharge Instructions Diet Discharge Diet: No restrictions DC O2, CPAP, BIPAP needs Home O2 Discharge instructions: No Dressing / Incision Discharge Activity: Return to Normal Activity Weight Bearing Status: Weight bearing as tolerated Dressing / Incision Call your doctor if you observe: Fever of 101 or Higher, Coldness, Increased Pain, Numbness or Tingling, Change in Color, Inability to urinate, Inability to have a bowel movement, Shortness of breath, Dizziness, Fainting spells, Swelling in the ankles, Chest pain, Prolonged hiccupping, Increased palpitations (irregular heartbeat) and Calf discomfort Follow Up Care When: IN 2 WEEKS Test Results: Test results from this visit will be discussed in further detail at your follow- up appointment, if applicable. Discharge Plan Admission Admit Date/Time: 02/15/25 04:28 Attending Provider: Eliel Reeves Primary Care Provider: Eleanor Armstrong Consulting Providers: Sheng Galvin; Hansa Pepper; Karen Perkins; Mirna Lira; Joselyn De Guzman; Deo Duran; Danyell Mg; Zaki Costa; Jim Kingsley; Esteban Jernigan; Leilani Zapata; Coleman Lakhani; Tisha Novoa; Rob Nguyen; Kathe Weathers; Joe Block; Chrissie Egan; Bjorn Lockhart; Trinh Viveros; Echo Castro; Marvin Becerril; Jes Ortiz Discharge Orders/Prescriptions Prescriptions: New carbidopa-levodopa 50-200 mg Tablet Extended Release 1 tab PO 5X/DAY 30 Days Qty: 150 0RF atorvastatin [Lipitor] 40 mg tablet 40 mg PO QHS 30 Days Qty: 30 2RF Continued magnesium 200 mg tablet 200 mg PO DAILY omega-3 fatty acids 1,000 mg capsule 1,000 mg PO DAILY coenzyme Q10 30 mg capsule 30 mg PO DAILY citalopram [Celexa] 10 mg tablet 10 mg PO DAILY naproxen 500 mg tablet 500 mg PO BID PRN (Reason: pain) Qty: 60 3RF ropinirole 3 mg tablet 3 mg PO BID Qty: 60 6RF baclofen 10 mg tablet See Rx Instructions .ROUTE .COMPLEX Qty: 180 4RF Rx Instructions: Take 1 tablet orally 3 times daily and 3 tablets nightly multivitamin [Daily Multi-Vitamin] Tablet 1 tab PO DAILY Discontinued carbidopa-levodopa 25-100 mg tablet extended release 2 tab PO .QID Qty: 240 3RF Referrals / Follow Up: Eleanor Armstrong DO [Primary Care Provider] - Disposition Disposition (needs filled in before D/C Order can be placed): Home, Self Care
--- NOTE | 2025-02-16 11:05 | DS.PCM_ITS ---
Providers Date of Admission: 02/15/25 Date of Discharge: 02/16/25 Primary Care Physician: Dr. Eleanor Armstrong, DO Consultations 02/15/25 05:35 Consult: Tele-Neurology Routine Consulting Provider: [facility] Reason for Consult: Acute Ischemic Stroke/TIA EMERGENT Consult: No MD Notified: Yes Date Notified: 02/15/25 Time Notified: 06:00 Method of Notification: Answering Service Method of Consult:: Telemedicine Comments:: worsening gait from parkinsons Nursing Unit Staff Notify [facility] of Tele-Neurology Consult: Yes Reason For Visit: TIA Diagnosis Discharge Diagnosis (1) Gait instability: Status: Acute Code(s): R26.81 - Unsteadiness on feet (2) Parkinson's disease: Status: Chronic Code(s): G20 - Parkinson's disease Qualifiers: Dyskinesia presence: without dyskinesia Fluctuating manifestations: w ith fluctuating manifestations Qualified Code(s): G20.A2 - Parkinson's disease without dyskinesia, with fluctuations Plan The patient was admitted for right upper extremity weakness, generalized weakness and gait instability, waxing and waning type. Stroke ruled out #RUE weakness and generaliwed weakness and instability * [place] to be due to Parkinson's disease. CT of the brain showed no acute intracranial pathology. MRI of the brain done also showed no evidence of a stroke. * Neurology was consulted and did not think MRI of the brain was needed. On Sinemet qid. Neurology recommended that Sinemet be switched to 5 times daily. * To follow-up with her neurologist on outpatient basis. Already on aspirin and Lipitor * also on baclofen. 02/16: New prescription for Sinemet 5 times daily was given * #Anxiety and depression: on escitalopram DVT prophylaxis: SCDs Family did not want to go to SNF. Discharge to home. Home physical therapy prescription signed. Discharge medication reconciliation done. Discharge follow-up instructions completed. Discharge process discussed with the patient and all questions were answered to patient's satisfaction. Follow with PCP in 1 to 2 weeks Total time spent, exact 35 minutes on discharge meds reconciliation, examination, coordination of care with nurses and ancillary staff, review of imaging and blood test and discussion with the patient on follow-up instructions. Medications at Discharge Home Medications magnesium 200 mg tablet 200 mg PO DAILY 10/27/21 citalopram 10 mg tablet (Celexa) 10 mg PO DAILY 11/08/22 coenzyme Q10 30 mg capsule 30 mg PO DAILY 11/08/22 omega-3 fatty acids 1,000 mg capsule 1,000 mg PO DAILY 11/08/22 ropinirole 3 mg tablet 3 mg PO BID #60 tabs 11/26/24 naproxen 500 mg tablet 500 mg PO BID PRN pain #60 tabs 01/28/25 baclofen 10 mg tablet See Rx Instructions .Route .COMPLEX muscle pain/muscle spasm #180 tabs 02/14/25 multivitamin (Daily Multi-Vitamin tablet) 1 tab PO DAILY 02/15/25 atorvastatin 40 mg tablet (Lipitor) 40 mg PO QHS 30 days #30 tabs 02/16/25 carbidopa ER 50 mg-levodopa 200 mg tablet,extended release 1 tab PO 5X/DAY 30 days #150 tabs 02/16/25 Physical Exam Narrative Seen and examined. Patient's present near the bedside. Patient denies BM for 2 days. Last BM 02/14. Physical exam General: Alert, Oriented x3, Cooperative HEENT: Atraumatic, PERRLA, EOMI, Normocephalic. Oral: No Gingival or Mucosal Lesions/ Ulcerations Neck: Supple, No JVD, Negative Carotid Bruits Chest wall/Lungs: Air entry diminished in bilateral lung bases. No crepitation/rhonchi Cardiovascular: Regular rate and rhythm, Normal S1,S2, No M/G/R Abdomen: Bowel Sounds Present, Soft, Non Tender, Non-Distended : No dysuria. No renal angle tenderness. No suprapubic tenderness. Extremities: No edema, Capillary Refill Less than 3 Seconds Skin: No rashes, No breakdown Musculoskeletal: Increase the stiffness of her knee and thigh muscles/Cogwheel rigidity. No Tenderness to Palpation of Joints or Extremities Neurological: Cranial nerves II-XII grossly intact, masked facies. Psych/Mental Status: Flat affect Weight / BMI Weight Weight: 120 lb 2.431 oz Body Mass Index (BMI) 20.0 ABG / Lab / Microbiology Data 02/16/25 04:42 02/16/25 04:42 Laboratory: Laboratory Results - last 24 hr 02/16/25 04:42: WBC 4.5, RBC 3.74 L, Hgb 12.2, Hct 36.3 L, MCV 97.1, MCH 32.6 H, MCHC 33.6, RDW Std Deviation 46.5 H, RDW Coeff of Milly 12.9, Plt Count 199, MPV 10.2, Immature Gran % (Auto) 0.000, Neut % (Auto) 53.8, Lymph % (Auto) 28.8, M conor % (Auto) 11.9 H, Eos % (Auto) 4.6, Baso % (Auto) 0.9, Absolute Neuts (auto) 2.4, Absolute Lymphs (auto) 1.30, Nucleated RBC % 0, Sodium 138, Potassium 3.7, Chloride 105, Carbon Dioxide 22.5, Anion Gap 10, BUN 24 H, Creatinine 0.60 L, Estim Creat Clear Calc 55.49, Est GFR (MDRD) Non-Af 96, BUN/Creatinine Ratio 40.2 H, Glucose 110 H, Calcium 9.4 Radiography Diagnostic Testing: Radiology Impression Brain MRI 02/15/25 05:35 IMPRESSION: No acute intracranial process. Mild chronic microvascular ischemic changes. Reading Location: [facility] Echocardiogram 02/15/25 05:35 Interpretation Summary The estimated ejection fraction is 55???60 %. Normal LV systolic function No significant valve abnormality No previous echocardiogram to compare Ordering Physician: Marvin Becerril Referring Physician: Eleanor Armstrong Performed By: Ara Bailey, LENYCS, RVT D/C Instructions Discharge Diet: No restrictions Weight Bearing Status: Weight bearing as tolerated Call your doctor if you observe: Fever of 101 or Higher, Coldness, Increased Pain, Numbness or Tingling, Change in Color, Inability to urinate, Inability to have a bowel movement, Shortness of breath, Dizziness, Fainting spells, Swelling in the ankles, Chest pain, Prolonged hiccupping, Increased palpitations (irregular heartbeat) and Calf discomfort DC O2, CPAP, BIPAP Needs Home O2 Discharge instructions: No When: IN 2 WEEKS Meaningful Use Info Meaningful Use Meaningful Use Diagnoses (Choose all that apply): None applicable Ischemic Stroke Statin Dosing Therapy Reference: STATIN DOSE THERAPY REFERENCE: * Patients > 75 years receive moderate or high dose statin therapy. * Patients 75 years or YOUNGER should receive HIGH intensity statin dose unless contraindicated. You will be required to document reason for non-treatment if statin daily dose does not meet guidelines. HIGH DOSE STATIN THERAPY DAILY Atorvastatin > than or = to 40 mg Rosuvastatin > than or = to 20 mg Amlodipine + Atorvastatin > than or = to 2.5/40 mg Ezetimibe + Simvastatin 10/80 mg Simvastatin 80mg Discharge Plan Admission Admit Date/Time: 02/15/25 04:28 Attending Provider: Eliel Reeves Primary Care Provider: Eleanor Armstrong Consulting Providers: Sheng Galvin; Hansa Pepper; Karen Perkins; Mirna Lira; Joselyn De Guzman; Deo Duran; Danyell Mg; Zaki Costa; Jim Kingsley; Esteban Jernigan; Leilani Zapata; Coleman Lakhani; Tisha Novoa; Rob Nguyen; Kathe Weathers; Joe Block; Chrissie Egan; Bjorn Lockhart; Trinh Viveros; Echo Castro; Marvin Becerril; Jes Ortiz Instructions Additional Instructions / Restrictions: [id number] stool softener. MiraLAX 17 g once daily. Discharge Orders/Prescriptions Prescriptions: New carbidopa-levodopa 50-200 mg Tablet Extended Release 1 tab PO 5X/DAY 30 Days Qty: 150 0RF atorvastatin [Lipitor] 40 mg tablet 40 mg PO QHS 30 Days Qty: 30 2RF Continued magnesium 200 mg tablet 200 mg PO DAILY omega-3 fatty acids 1,000 mg capsule 1,000 mg PO DAILY coenzyme Q10 30 mg capsule 30 mg PO DAILY citalopram [Celexa] 10 mg tablet 10 mg PO DAILY naproxen 500 mg tablet 500 mg PO BID PRN (Reason: pain) Qty: 60 3RF ropinirole 3 mg tablet 3 mg PO BID Qty: 60 6RF baclofen 10 mg tablet See Rx Instructions .ROUTE .COMPLEX Qty: 180 4RF Rx Instructions: Take 1 tablet orally 3 times daily and 3 tablets nightly multivitamin [Daily Multi-Vitamin] Tablet 1 tab PO DAILY Discontinued carbidopa-levodopa 25-100 mg tablet extended release 2 tab PO .QID Qty: 240 3RF Referrals / Follow Up: Eleanor Armstrong DO [Primary Care Provider] - Disposition Disposition (needs filled in before D/C Order can be placed): Home, Self Care Charges/Coding Visit Charges Inpatient E&M: 14712 Disch Hosp >30min
--- NOTE | 2025-02-16 11:07 | CASEMGMT ---
SCARLET HERNANDEZ informed pt would like to go home with OP therapy. SCARLET HERNANDEZ into pt room, discussed OP PT and Parkinson's exercise class at . Pt would like a script, script provided to pt to schedule an evaluation. Pt also interested in [facility] transport van information. Provided Pt with a printout. Pt denies additional questions or needs at this time.
== END 2025-02-16 14:05 | disposition home or self-care (01) ==
LOC: ED 03:46 → PCU 04:44
PROVIDERS: Student in an Organized Health Care Education/Training Program; Admitting Provider Family Medicine; Emergency Provider Emergency Medicine; PCP Internal Medicine; Visit Provider Internal Medicine
DX: G20.A2 Parkinson's disease without dyskinesia, with fluctuations (principal); G62.9 Polyneuropathy, unspecified; Z82.49 Family history of ischemic heart disease and other diseases of the circulatory system; R26.81 Unsteadiness on feet; Z86.16 Personal history of COVID-19; G25.81 Restless legs syndrome; Z79.899 Other long term (current) drug therapy; F32.A Depression, unspecified; F41.9 Anxiety disorder, unspecified; M62.81 Muscle weakness (generalized)
CPT/HCPCS: 36415; 70450; 70496; 70498; 70551; 80048; 80061; 81001; 82962; 84484; 85025; 85610; 85730; 92610; 93005; 93306; 94762; 97162; 97166; 97530; 99221; 99285; Q9967; A4216; G0378

== ENCOUNTER → 2025-03-11 | Outpatient (CLI) | payer MEDICARE, OTHER, SELFPAY ==
--- NOTE | 2025-03-11 08:17 | MRI_ITS ---
PROCEDURE: SPINE LUMBAR (ROUTINE) 03/11/2025 REASON FOR EXAM: RIGHT LUMBAR RADICULOPATHY TECHNIQUE: SPINE LUMBAR (ROUTINE) Post gadolinium images were obtained. 12 cc of Clariscan were injected intravenously. COMPARISON: None. FINDINGS: Moderate diffuse spondylosis. Moderate multilevel degenerative disc disease. Moderate chronic changes of Baastrup's disease. There is normal signal intensity from the visualized bone marrow without evidence of replacement or acute fracture. The conus is unremarkable. Mildly exaggerated lumbar lordosis. Evaluation of the individual levels revealed the following: L5-S1: There is grade 1 retrolisthesis measuring 4.2 mm. Mild diffuse disc bulge. Superimposed broad-based left posterolateral/foraminal disc protrusion measuring 5.3 mm. The spinal canal is not narrowed. There is mild right and moderate left neural foramina narrowing. L4-5: There is mild diffuse disc bulge. Superimposed broad-based left foraminal disc protrusion measuring 3.4 mm. Bilateral facet joint arthropathy and ligamentum flavum hypertrophy. The spinal canal is not narrowed. There is mild right and moderate left neural foramina narrowing. L3-4: There is mild diffuse disc bulge. Superimposed broad-based left posterolateral disc protrusion measuring 3.3 mm. Bilateral facet joint arthropathy and ligamentum flavum hypertrophy. The spinal canal is mildly narrowed. There is mild bilateral neural foramina narrowing. L2-3: There is mild diffuse disc bulge. Bilateral facet joint arthropathy and ligamentum flavum hypertrophy. The spinal canal is not narrowed. There is mild bilateral neural foramina narrowing. L1-2: There is mild diffuse disc bulge. Bilateral facet joint arthropathy and ligamentum flavum hypertrophy. The spinal canal is not narrowed. There is mild bilateral neural foramina narrowing. Normal visualized paraspinous soft tissue structures. No abnormal postcontrast enhancement is noted. MRI/Spine Lumbar (Routine) IMPRESSION: Spondylosis. Degenerative disc disease. Reading [facility] [address]
--- NOTE | 2025-03-11 09:20 | VDLE_ITS ---
Reason For Study Reason For Study: Rt Leg Pain RIGHT LEFT GSV is normal. CFV is compressible, spontaneous, phasic, competent, CFV is compressible, spontaneous, phasic, competent and demonstrates normal augmentation. and demonstrates normal augmentation. FV is compressible, spontaneous, phasic, competent and demonstrates normal augmentation. POP V is compressible, spontaneous, phasic, competent and demonstrates normal augmentation. T/P Trunk is compressible. PTV is compressible. RT PerV is compressible. Procedure This is a venous duplex using B-mode, color flow and spectral Doppler. Exam performed in department. A preliminary report was called and/or faxed to Dr. Truong. VL/Venous Duplex US, Unilateral Interpretation Summary Deep veins of the right lower extremity are patent and compressible segmentally . There is no evidence of right lower extremity deep vein thrombosis. Valvular competence appears intact within the p roximal deep venous system on the right . The right great saphenous vein appears patent and compressible segmentally. The left common femoral vein is patent and compressible . Ordering Physician: Jac Truong Referring Physician: Eleanor Armstrong Performed By: Fani Sharpe, TD, RVT
== END | disposition home or self-care (01) ==
LOC: MRI 08:13
PROVIDERS: PCP Internal Medicine; Referring Provider Psychiatry & Neurology Neurology; Visit Provider Psychiatry & Neurology Neurology
DX: M54.16 Radiculopathy, lumbar region (principal); M79.651 Pain in right thigh; M79.89 Other specified soft tissue disorders
CPT/HCPCS: 72148; 93971; A9575

== ENCOUNTER → 2025-04-05 | Outpatient (CLI) | payer MEDICARE, OTHER, SELFPAY ==
--- NOTE | 2025-04-05 11:55 | BI_ITS ---
EXAM: SCRN MAMM (CAD)W/ROSEANNE BILAT DATE: 04/05/2025 CLINICAL HISTORY: F, Age 69 y/o , ENCOUNTER FOR SCREENING MAMMOGRAM FOR MALIGNANT NEOPLASM OF BREAS TECHNIQUE: SCRN MAMM (CAD)W/ROSEANNE BILAT COMPARISON: None available FINDINGS: TISSUE DENSITY: The breasts are heterogeneously dense, which may obscure small masses. Bilateral Breast Mammographic Findings: No suspicious masses, calcifications or other abnormalities are identified. BI/SCRN MAMM (CAD)W/ROSEANNE BILAT IMPRESSION: No mammographic evidence of malignancy in either breast OVERALL FINAL ASSESSMENT BI-RADS 1: NEGATIVE. RECOMMENDATION: Routine annual follow-up in 1 Year A letter with findings and recommendations will be mailed to the patient. Reading Location: [id number]
== END | disposition home or self-care (01) ==
LOC: OPBI 11:53
PROVIDERS: PCP Internal Medicine; Referring Provider Internal Medicine; Visit Provider Internal Medicine
DX: Z12.31 Encounter for screening mammogram for malignant neoplasm of breast (principal)
CPT/HCPCS: 77063; 77067

== ENCOUNTER → 2025-05-05 | Outpatient (CLI) | payer MEDICARE, OTHER, SELFPAY | END | disposition home or self-care (01) | LOC: LABSPEC 05-06 08:51 | PROVIDERS: PCP Internal Medicine; Visit Provider Nurse Practitioner Family | DX: R30.0 Dysuria (principal) | CPT/HCPCS: 87086; 87088 ==

== ENCOUNTER 2025-05-16 00:27 | Emergency (ER) | payer MEDICARE, OTHER, SELFPAY ==
[2025-05-16 00:28] VITALS: BP 178/101; PULSE 78; RESP 16; TEMP 36.1; O2SAT 97; BMI 19.7
--- NOTE | 2025-05-16 00:32 | EX.ED.DYSGE1 ---
HPI History of Present Illness Chief Complaint: Abd Pain [facility] Medical History Gait instability Weakness of right upper extremity Parkinson's disease Parkinson disease COVID-19 Acute bronchitis, unspecified Anemia Neck pain Shoulder pain Home Medications ?Medication ?Instructions ?Recorded ?Last Taken ?Type magnesium 200 mg tablet 200 mg PO DAILY 10/27/21 02/13/25 History citalopram 10 mg tablet (Celexa) 10 mg PO DAILY 11/08/22 02/13/25 History coenzyme Q10 30 mg capsule 30 mg PO DAILY 11/08/22 02/13/25 History omega-3 fatty acids 1,000 mg 1,000 mg PO DAILY 11/08/22 02/13/25 History capsule multivitamin (Daily Multi-Vitamin 1 tab PO DAILY 02/15/25 02/13/25 History tablet) alpha lipoic acid 300 mg capsule 300 mg PO QDAY 03/19/25 Unknown History cholecalciferol (vitamin D3) 25 25 mcg PO QDAY 03/19/25 Unknown History mcg (1,000 unit) capsule potassium gluconate 595 mg (99 mg) 595 mg PO QDAY 03/19/25 Unknown History tablet carbidopa ER 50 mg-levodopa 200 mg 1 tab PO .QID #120 tabs 04/08/25 Unknown Rx tablet,extended release baclofen 10 mg tablet 10 mg PO BID muscle pain/muscle 05/02/25 Unknown Rx spasm #60 tabs buspirone 5 mg tablet 5 mg PO BID #60 tabs 05/02/25 Unknown Rx gabapentin 100 mg capsule 100 mg PO TID #90 caps 05/14/25 Unknown Rx ondansetron 4 mg disintegrating 4 mg PO Q8H PRN PRN Nausea 3 days 05/16/25 Unknown Rx tablet #10 tabs prednisone 20 mg tablet 20 mg PO DAILY #5 tabs 05/16/25 Unknown Rx Allergy/AdvReac Type Severity Reaction Status Date / Time No Known Allergies Allergy Verified 05/16/25 00:28 Family History Mother Non-Hodgkin lymphoma Father Alzheimer disease Sister Bone cancer CVA (cerebral vascular accident) Parkinsons disease Grandfather Myocardial infarction Grandfather Myocardial infarction Surgical History No history of previous surgery Social History household members: spouse housing: house Smoking Status: Never smoker second hand exposure: No alcohol intake: current details: socially substance use type: does not use deshaun/taoist: Rastafari seatbelt use: always EXAM Physical Exam Const Vital Signs: 05/16/25 00:28 05/16/25 02:27 Temperature 97 F L Temperature Source Temporal Pulse Rate 78 66 Respiratory Rate 16 18 Blood Pressure 178/101 H 127/77 H Blood Pressure Mean 126 93 Pulse Ox 97 99 Oxygen Delivery Method Room Air [facility] [place] Narrative Medical decision making narrative: HISTORY OF PRESENT ILLNESS: Chief complaint: Abdominal pain 69-year-old female history of panic attacks, anxiety, lumbar radiculopathy, presents with abdominal pain. Notes left lower quadrant abdominal pain. Notes pain is going on for months. Patient states she has constipation. Notes last bowel movement was 3 days ago. Typical bowel movement intervals 3 days. No vomiting. No fever. No urinary complaints. REVIEW OF SYSTEMS: Pertinent positives: Abdominal pain Pertinent negatives: As per HPI PHYSICAL EXAM: Nursing triage notes reviewed, Vital signs reviewed Constitutional: please see mdm HENT: MMM Eyes: Pupils equal round and reactive to light, Extraocular muscles intact Neck: No stridor, no JVD, full neck ROM Lungs: Clear to auscultation, No wheezing or rales. No increased work of breathing, no conversational dyspnea, no accessory muscle use, no nasal flaring. No respiratory distress noted Heart: Regular rate and rhythm, No murmurs, No rubs and No gallops, 2+ distal pulses (radial, femoral, posterior tibial) in all extremities Abdomen: Soft, left lower quadrant TTP but no rigidity, rebound or guarding, no obvious peritoneal signs, no palpable pulsatile abdominal masses, no auscultated abdominal bruit : No CVAT Extremities: No edema Neuro: No new focal neurological deficits, cranial nerves II through XII intact, 5/5 strength in all present extremities. Intact sensation to light touch in all present extremities, 2+ reflexes bilateral patella tendons. Skin: No rash or lesions noted MEDICAL DECISION MAKING: Chief Complaint: please see HPI External records reviewed: Reviewed prior imaging Factors affecting care: As per HPI Social determinants of health: none History obtained from others: Family Consults: none [place] Narrative: The patient was initially hypertensive with a blood pressure 178/101, afebrile and nontoxic-appearing. Exam with left lower quadrant TTP but no peritoneal signs or rigidity. I considered the following differential diagnosis: AAA, small bowel obstruction, abdominal perforation, appendicitis, pancreatitis, hepatobiliary pathology (acute cholecystitis), mesenteric ischemia, pathology (ie nephrolithiasis, pyelonephritis). I obtained broad lab and imaging to further determine if the patient was suffering from a life-threatening etiology. Initially treated patient with IV fluids, Zofran and 2 mg of morphine for initial pain control. Patient noted anxiety during her ED stay here she was treated with 0.25 mg IV Ativan ALL IMAGES (IF OBTAINED) HAVE BEEN PERSONALLY REVIEWED AND INTERPRETED BY MYSELF. CBC without leukocytosis, severe anemia, no thrombocytopenia. CMP without evidence of acute kidney injury, significant electrolyte abnormality, anion gap to suggest end organ hypo-perfusion, no evidence of metabolic acidosis with a normal bicarbonate, no evidence of hepatobiliary obstructive pathology. Lipase is wnl indicating no pancreatic inflammation. Urinalysis shows no evidence of urinary inflammation suggestive of UTI CT scan of abdomen pelvis shows evidence of enteritis but no obvious perforation or obstruction. Repeat abdominal exam remained benign. The synthesis of the patient's history, physical exam, labs images suggest likely gastroenteritis. Is unlikely be infectious as patient no fever, no white count, no bloody diarrhea. I suspect is inflammatory in nature as such I will prescribe steroids. Will give close GI follow-up. Strict return precautions will be discussed. The patient and/or family, caregivers express understanding. The patient and/or family, caregivers agrees with the plan. Shared decision making: I will have a discussion with the patient and or visitors regarding risk/benefits of further testing or admission. They will be made aware of of the risk/benefits inherent in this decision they will be given the opportunity to voice understanding. Total critical care time today provided was at least 0 minutes. This excludes separately billable procedures. Critical care time (if documented) is secondary to the patient having high probability of clinically significant/life threatening deterioration in the patient's condition which required my urgent intervention. Impression: 1. Acute abdominal pain 2. Enteritis Dispo: Discharge home This note was generated with [employer] dictation software. It may contain incorrect words, spelling, and punctuation that were not noted in review of the chart prior to signing. Lab Data Labs: Laboratory Results - last 24 hr 05/16/25 05/16/25 00:55 01:35 WBC 5.2 RBC 3.71 L Hgb 12.2 Hct 35.7 L MCV 96.2 MCH 32.9 H MCHC 34.2 RDW Std Deviation 43.0 RDW Coeff of Milly 12.3 Plt Count 202 MPV 10.4 Immature Gran % (Auto) 0.400 Neut % (Auto) 63.4 Lymph % (Auto) 22.6 [place] % (Auto) 11.5 H Eos % (Auto) 1.1 Baso % (Auto) 1.0 Absolute Neuts (auto) 3.3 Absolute Lymphs (auto) 1.18 Nucleated RBC % 0 Sodium 139 Potassium 3.8 Chloride 101 Carbon Dioxide 25.7 Anion Gap 13 BUN 30 H Creatinine 0.74 Estim Creat Clear Calc 54.78 Est GFR (MDRD) Non-Af 87 BUN/Creatinine Ratio 40.9 H Glucose 108 H Calcium 9.6 Total Bilirubin 0.25 AST 18 ALT < 5 Alkaline Phosphatase 45 Total Protein 7.0 Albumin 4.1 Globulin 2.9 Albumin/Globulin Ratio 1.4 Lipase 17 Urine Color Yellow Urine Clarity Cloudy Urine pH 8.0 Ur Specific [place] 1.015 Urine Protein 15 H Urine Glucose (UA) Normal Urine Ketones Negative Urine Occult Blood Negative Urine Nitrite Negative Urine Bilirubin Negative Urine Urobilinogen Normal Ur Leukocyte Esterase Negative Urine RBC 0 SEEN Urine WBC 0 SEEN Ur Squamous Epith Cells 0 SEEN Amorphous Sediment 1+ Urine Bacteria 3+ Urine Mucus 0 SEEN Radiography Diagnostic Testing: Clinical Impression(s) from Imaging Studies Abdomen/Pelvis CT 05/16/25 01:15 IMPRESSION: Mild small bowel/jejunal loops wall thickening, possibly inflammatory (enteritis) versus non specific. Advise clinical correlation. Colonic diverticulosis. No diverticulitis. Colonic fecal loading. Reading Location: [place] [address] Discharge Plan Triage Chief Complaint: Abd Pain ED Provider: Raffi Higginbotham Dx/Rx/DC Orders Instructions: ED Gastroenteritis, Noninfectious Prescriptions: New prednisone 20 mg tablet 20 mg PO DAILY Qty: 5 0RF ondansetron 4 mg tablet,disintegrating 4 mg PO Q8H PRN PRN (Reason: Nausea) 3 Days Qty: 10 0RF No Action magnesium 200 mg tablet 200 mg PO DAILY omega-3 fatty acids 1,000 mg capsule 1,000 mg PO DAILY coenzyme Q10 30 mg capsule 30 mg PO DAILY citalopram [Celexa] 10 mg tablet 10 mg PO DAILY carbidopa-levodopa 50-200 mg tablet extended release 1 tab PO .QID Qty: 120 5RF Rx Instructions: divide evenly over waking hours potassium gluconate 595 mg (99 mg) tablet 595 mg PO QDAY cholecalciferol (vitamin D3) 25 mcg (1,000 unit) capsule 25 mcg PO QDAY alpha lipoic acid 300 mg capsule 300 mg PO QDAY baclofen 10 mg tablet 10 mg PO BID Qty: 60 1RF buspirone 5 mg tablet 5 mg PO BID Qty: 60 3RF multivitamin [Daily Multi-Vitamin] Tablet 1 tab PO DAILY gabapentin 100 mg capsule 100 mg PO TID Qty: 90 3RF Primary Care Provider: Eleanor Armstrong Referrals: Eleanor Armstrong DO [Primary Care Provider] - Friend,DO Guilherme [Med Staff - Active Staff] - Activity Restrictions/Additional Instructions: Thank you for trusting us with your care today! Your labs were reassuring. No sign of systemic inflammation or signs of infection in your blood work on your urine test. Your CT scan showed nonspecific inflammation that we call gastroenteritis. This is treated with anti-inflammatories including steroids. Please take prednisone (steroid) as prescribed. Please take Zofran as needed for nausea vomiting control at home Please take Tylenol (2 pills, 650 mg), ibuprofen (2 pills, 400 mg) every 6 hours as needed for pain and fever control. Please return to the emergency department if your symptoms change or worsen. Please follow with Gastroenterology for further outpatient evaluation and management. Print Language: Spanish Disposition Disposition: Home, Self Care
[2025-05-16] MEDS: 0.9% Normal Saline (1000mL) 1,000 ML 999 ML IV (01:06)
[2025-05-16 01:07] LABS: Hematocrit 35.7 % (37-47); Hemoglobin 12.2 g/dL (12.0-15.0); Immature Granulocytes Count 0.020 X10^3/uL (0.0-0.0); Mean Corp Hgb Conc 34.2 g/dL (32-36); Mean Corpuscular Volume 96.2 fL (81-99); Mean Platelet Vol. 10.4 fl (6.2-12.0); NRBC Flagged by Analyzer 0 % (0-5); Platelet Count 202 K/mm3 (150-450); RBC Distribution Width CV 12.3 % (11.6-14.6); RBC Distribution Width SD 43.0 fl (35.1-43.9); Red Blood Count 3.71 M/mm3 (4.2-5.4); White Blood Count 5.2 K/mm3 (4.4-11.0)
--- NOTE | 2025-05-16 01:15 | CT_ITS ---
PROCEDURE: ABDOMEN/PELVIS W IV CONT ONLY 05/16/2025 REASON FOR EXAM: LEFT LOWER QUADRANT ABDOMINAL PAIN TECHNIQUE: ABDOMEN/PELVIS W IV CONT ONLY Coronal and Sagittal reconstruction series were provided. CONTRAST: isovue [id number] VOLUME: 75 mL One or more dose reduction techniques were used (e.g., Automated exposure control, adjustment of the mA and/or kV according to patient size, use of iterative reconstruction technique. RADIATION DOSE SUMMARY: CTDlvol: 8.28 mGy DLP: 421.22 mGycm COMPARISON: none FINDINGS: Average sized liver showing homogenous parenchymal attenuation with few tin cysts. No dilated intra or extra-hepatic biliary tracts. Gall bladder showing no radiodense calculi. No abnormal mural thickening. Clear surrounding fat planes with no sizeable collections. Normal appearance of the pancreas with clear surrounding fat planes. The spleen, adrenal glands, aorta and IVC are unremarkable. Both kidneys are of average size and showing smooth outline with preserved parenchymal thickness. No renal calculi. No hydronephrosis. Distension of the urinary bladder showing no obvious masses. No obvious masses related to the pelvic viscera. The appendix appears unremarkable. No right iliac inflammatory changes. Mild gastric wall thickening, possibly under distension. Mild small bowel/jejunal loops wall thickening, possibly inflammatory (enteritis) versus non specific. Advise clinical correlation. Colonic diverticulosis. No diverticulitis. Colonic fecal loading. No ascites or free air. No obvious pathologically enlarged lymph nodes. Scanned osseous structures show no osseous destruction. Thoracolumbar spondylosis. Scanned lung bases show basal atelectatic changes. CT/Abdomen/Pelvis W IV Cont ONLY IMPRESSION: Mild small bowel/jejunal loops wall thickening, possibly inflammatory (enteriti s) versus non specific. Advise clinical correlation. Colonic diverticulosis. No diverticulitis. Colonic fecal loading. Reading Location[facility]
[2025-05-16 01:44] LABS: Mucous, Urine 0 SEEN /hpf (<or=2+); Red Blood Cells-Urine 0 SEEN /hpf (0-5); Squamous Epithelial Cells - UA 0 SEEN /hpf (5-10)
[2025-05-16 01:45] LABS: Color, Urine Yellow (Yellow); Glucose, Dipstick Normal (Normal); Ketone-Dipstick Negative (Negative); Leukocyte Esterase-Dipstick Negative /ul (Negative); Nitrite-Dipstick Negative (Negative); Occult Blood-Urine Negative /ul (Negative); Protein-Dipstick 15 mg/dl (Negative); Specific Gravity, Urine 1.015 (1.002-1.030); Urine Bilirubin Dipstick Negative (Negative)
[2025-05-16 01:46] LABS: Lipase 17 U/L (13-75)
[2025-05-16 01:47] LABS: AST(SGOT) 18 U/L (<=31); Alanine Aminotransfer ALT/SGPT < 5 U/L (<=34); Albumin, Serum 4.1 g/dL (3.4-4.8); Alkaline Phosphatase 45 U/L (35-104); Anion Gap 13 (5-15); BUN 30 mg/dL (4-19); BUN/Creat Ratio 40.9 RATIO (10-20); Calcium,Total 9.6 mg/dL (7.6-11.0); Carbon Dioxide 25.7 mmol/L (21.0-32.0); Chloride 101 mmol/L (98-108); Estimated Creatinine Clearance 54.78 ml/min (50-250); Globulin 2.9 g/dL (2.2-4.2); Glucose 108 mg/dL (70-99); Potassium 3.8 mmol/L (3.3-5.1)
[2025-05-16 02:27] VITALS: BP 127/77; PULSE 66; RESP 18; O2SAT 99
--- OUTSIDE RECORDS SUMMARY | 2025-05-16 03:24 | XMS RPT_ITS | CCD ---
Author Organization [facility] Care Team Providers Care Granite Cutter Name Role Phone Eleanor Armstrong Unavailable Gravius, Malgorzata Unavailable Unavailable Unavailable Unavailable Eleanor Armstrong DO Unavailable Daryl Torres LPN Unavailable Unavailable Gravius DORMITORY COUNSELOR, Malgorzata Unavailable Unavailable Unavailable Unavailable Marine WELSHMelony Unavailable Unavailable Unavailable Unavailable Primary Care Provider Unavailabl Nissa Suggs Unavailable Jac Truong Unavailable Mara Chin LPN Unavailable Unavailable Dr. Eleanor Armstrong Primary Care Provider Dr. Eleanor Armstrong Referring Provider Dr. Jac Truong Attending Provider Eleanor Armstrong DO Unavailable Clemencia Coronado LPN Unavailable Unavailable Dr. Eleanor Armstrong Primary Care Provider [phone] Dr. Eleanor Armstrong Referring Provider Dr. Jac Truong Attending Provider Renée PEDIATRIC SPEECH LANGUAGE PATHOLOGIST, ABI-Luis Lofton Attending Provider Milly MARTINEZ, Kayela Unavailable Unavailable Charlee Sosa MA Unavailable Unavailable Eleanor Armstrong DO Attending Unavailable Eleanor Armstrong DO Referring Unavailable Eleanor Armstrong DO Consulting Unavailable [place] JEFFRY, Sarkis Unavailable Unavailable Jennifer Hemphill Unavailable Dr. Eleanor Armstrong DO Primary Care Provider [phone] Patti DO, Dr. Webster Referring Provider Dionne KAY, Dr. Nathan Attending Provider Dionne KAY, Dr. Nathan Referring Provider Patti INGRAM, Dr. Webster Primary Care Provider Patti INGRAM, Dr. Webster Referring Provider Dionne KAY, Dr. Nathan Attending Provider Lavonne DPM, Dr. Jimenes Attending Provider Lavonne DPM, Dr. Jimenes Referring Provider Lavonne DPM, Dr. Jimenes Other Provider Ulises KAY, Dr. Lyons Attending Provider Anjelica INGRAM, Dr. Russell Emergency Provider Jone KAY, Dr. Marvin Lua Admit Provider Jone KAY, Dr. Marvin Lua Attending Provider Jone KAY, Dr. Marvin Lua Other Provider Sheng Galvin MD Other Provider Unavailable Shantelle KAY, Dr. Santo Other Provider [phone] Karen Perkins MD Other Provider Unavailable Dr. Mirna Lira DO Other Provider Gege KAY, Dr. Alves Other Provider [phone] Renee KAY, Dr. Desouza Other Provider Haritha KAY, Dr. Child Other Provider [phone] Julissa KAY, Dr. Haines Other Provider [phone] Sancho KAY, Dr. Fernandez Other Provider [phone] Delon KAY, Dr. Orellana Other Provider Leilani Zapata MD Other Provider Kar KAY, Dr. Cee Other Provider Bright KAY, Dr. Giles Other Provider Patrick KAY, Dr. Rivas Other Provider [phone] Sarahy KAY, Dr. Kathe Steele Other Provider [phone] Umair KAY, Dr. Diaz Other Provider Julisa KAY, Dr. Dickens Other Provider Richy KAY, Dr. Milan Other Provider Felice KAY, Dr. Tsang Other Provider Unavailable Matthew KAY, Echo Other Provider Unavailable Leandro KAY, Dr. Julian Attending Provider Diana KAY, Dr. Jes Mathis Other Provider Jone KAY, Dr. Marvin Lua Attending Provider Jacobo KAY, Dr. Figueroa Attending Provider Leandro KAY, Dr. Julian Other Provider [phone] Jacobo KAY, Dr. Figueroa Attending Provider Patti INGRAM, Dr. Webster Primary Care Provider [phone] Patti INGRAM, Dr. Webster Referring Provider Dionne KAY, Dr. Nathan Attending Provider [phone] Zuri KAY, Dr. Harris Cabrera Attending Provider Patti INGRAM, Dr. Webster Attending Provider Joby KAY, Dr. Rodriguez Attending Provider [phone] Patti INGRAM, Dr. Webster Primary Care Provider [phone] Patti INGRAM, Dr. Webster Referring Provider Dr. Jac Truong MD Attending Provider Dinone KAY, Dr. Nathan Referring Provider Joby KAY, Dr. Rodriguez Attending Provider Patti INGRAM, Dr. Webster Primary Care Provider Leander Lorenzana Attending Provider [phone] Dell PEDIATRIC SPEECH LANGUAGE PATHOLOGISTBerthaCReza Attending Provider [phone] Patti, Eleanor Referring Unavailable Patti, Eleanor Primary Care Unavailable Baddour, Jac Attending Unavailable Patti, Eleanor Primary Care Unavailable Baddour, Jac Attending Unavailable Baddour, Jac Referring Unavailable Patti, Eleanor Referring Unavailable Patti, Eleanor Primary Care Unavailable Baddour, Jac Attending Unavailable Patti, Eleanor Primary Care Unavailable Kotsonis, Marvin F Attending Unavailable Kotsonis, Marvin F Consulting Unavailable Kotsonis, Marvin F Admitting Unavailable Patti, Eleanor Referring Unavailable Patti, Eleanor Primary Care Unavailable Baddour, Jac Attending Unavailable Patti, Eleanor Primary Care Unavailable Patti, Eleanor Referring Unavailable Baddour, Jac Attending Unavailable Patti, Eleanor Primary Care Unavailable Patti, Eleanor Referring Unavailable Baddour, Jac Attending Unavailable Patti, Eleanor Primary Care Unavailable Patti, Eleanor Referring Unavailable Baddour, Jac Attending Unavailable Patti, Eleanor Primary Care Unavailable Roof Reza ALEX Attending Unavailable Jalil Banerjee Attending Unavailable Warwick, Jalil Referring Unavailable Patti, Eleanor Primary Care Unavailable Patti, Eleanor Referring Unavailable Patti, Eleanor Primary Care Unavailable Patti, Eleanor Attending Unavailable Patti, Eleanor Primary Care Unavailable Baddour, Jac Attending Unavailable Baddour, Jac Referring Unavailable Sheng Galvin Consulting Unavailable Patti, Eleanor Primary Care Unavailable Kotsonis, Marvin F Admitting Unavailable Leandro, Eliel Attending Unavailable Adeli, Amir Consulting Unavailable Hinduja, Karen Consulting Unavailable Pankaj, Mirna Consulting Unavailable Zha, Joselyn Consulting Unavailable Renee, Deo Consulting Unavailable Her Harithaa Consulting Unavailable Zaki Costa Consulting Unavailable Jim Kingsley Consulting Unavailable Esteban Jernigan Consulting Unavailable Leilani Zapata Consulting Unavailable Coleman Lakhani Consulting Unavailable Tisha Novoa Consulting Unavailable Rob Nguyen Consulting Unavailable Kathe Weathers Consulting UnavailJoe Stearns Consulting Unavailable Chrissie Egan Consulting Unavailable Bjorn Lockhart Consulting Unavailable Trinh Viveros Consulting Unavailable Echo Castro Consulting Unavailable Marvin Becerril Consulting Unavailable Diana, Jes Mathis Consulting Unavailable Patti, Eleanor Primary Care Unavailable Jac Truong Attending Unavailable Baddour, Jac Referring Unavailable Patti, Eleanor Referring Unavailable Patti, Eleanor Primary Care Unavailable Jac Truong Attending Unavailable Leander Grier Attending Unavailable Patti, Eleanor Referring Unavailable Patti, Eleanor Primary Care Unavailable Patti, Eleanor Referring Unavailable Patti, Eleanor Primary Care Unavailable Baddostevan Jac Attending Unavailable Patti, Eleanor Referring Unavailable Patti, Eleanor Primary Care Unavailable Dionne Jac Attending Unavailable Carolina Centeno Attending Unavailable Patti, Eleanor Primary Care Unavailable Jalil Banerjee Consulting Unavailable Jalil Banerjee Referring Unavailable Patti, Eleanor Primary Care Unavailable Eloy Montgomery Attending Unavailable Sheng Galvin Consulting Unavailable Eliel Reeves Attending Unavailable Hansa Pepper Consulting Unavailable Karen Perkins Consulting Unavailable Pankaj Mirna Consulting Unavailable Gege Joselyn Consulting Unavailable ReneeDeo castillo Consulting Unavailable Danyell Mg Consulting Unavailable Zaki Costa Consulting Unavailable Jim Kingsley Consulting Unavailable Esteban Jernigan Consulting Unavailable Leilani Zapata Consulting Unavailable Coleman Lakhani Consulting Unavailable Tisha Novoa Consulting Unavailable Rob Nguyen Consulting Unavailable Kathe Weathers Consulting UnavailJoe Stearns Consulting Unavailable EganChrissie Consulting Unavailable Bjorn Lockhart Consulting Unavailable Trinh Viveros Consulting Unavailable Shalom Castrosemarilin Consulting Unavailable Elisa Ortiza Delfina Consulting Unavailable Eliel Reeves Consulting Unavailable Medications Current Medications Medication Drug Class(es) Dates Sig (Normalized) Sig (Original) Ageless Brain (3 sources) Start: 10-27-2021 take 1 tablet by mouth once daily Ageless Brain Active 1 TABLET PO DAILY October 27, 2021 11:41am Start: 10-27-2021 take 1 tablet by mouth once da tracy Ageless Brain Active 1 TABLET PO DAILY October 27, 2021 1:00am baclofen 10 mg oral tablet (20 sources) gamma-Aminobutyric Acid-ergic Agonist Start: 03-20-2025 End: 05-02-2025 take 1 tablet by mouth twice daily Baclofen 10 mg tablet Active 10 mg PO TWICE A DAY 60 1 May 02, 2025 2:35pm muscle pain/muscle spasm Start: 03-19-2025 End: 03-20-2025 Baclofen 10 mg tablet Discon tinued 0 .ROUTE .COMPLEX March 19, 2025 11:33am March 20, 2025 5:27pm muscle pain/muscle spasm one tab q HS Start: 02-14-2025 End: 03-19-2025 take 1 tablet by mouth three times daily, then take 3 tablets by mouth once daily Baclofen 10 mg tablet Discontinued 0 .ROUTE .COMPLEX 180 4 February 14, 2025 2:10pm March 19, 2025 11:35am muscle pain/muscle spasm Take 1 tablet orally 3 times daily and 3 tablets nightly Start: 01-28-2025 End: 02-14-2025 take 3 tablets by mouth at bedtime Baclofen 10 mg tablet Discontinued 30 mg PO AT BEDTIME 90 4 January 28, 2025 1:14pm February 14, 2025 2:11pm muscle pain/muscle spasm Start: 12-18-2024 End: 01-28-2025 take 1-2 tablets by mouth once daily Baclofen 10 mg tablet Discontinued 0 .ROUTE .COMPLEX 60 4 December 18, 2024 12:00am January 28, 2025 1:16pm muscle pain/muscle spasm Take 1 to 2 tablets orally nightly Bio C (3 sources) Start: 10-27-2021 take 2 capsules by m outh once daily Bio C Active 2 CAP PO DAILY October 27, 2021 11:25am Start: 10-27-2021 take 2 capsules by m outh once daily Bio C Active 2 CAP PO DAILY October 27, 2021 1:00am Bio C capsule (2 sources) Start: 10-27-2021 Bio C capsule Active 2 NMA PO DAILY October 27, 2021 1:00am Bio M for Women - MultiMineral (3 sources) Start: 10-27-2021 take 1 capsule by mouth once daily Bio M for Women - MultiMineral Active 1 CAP PO DAILY October 27, 2021 11:24am Start: 10-27-2021 take 1 capsule by mo uth once daily Bio M for Women - MultiMineral Active 1 CAP PO DAILY October 27, 2021 1:00am busPIRone hydrochloride 5 mg oral tablet (3 sources) Start: 05-02-2025 take 1 tablet by mouth twice daily Buspirone 5 mg tablet Active 5 mg PO TWICE A DAY 60 3 May 02, 2025 12:00am carbidopa 50 mg / levodopa 200 mg extended release oral tablet (20 sources) Aromatic Amino Acid Decarboxylation Inhibitor, Aromatic Amino Acid Start: 04-08-2025 Carbidopa-Levod opa 50-200 mg tablet extended release Active 1 {tbl} PO .QID 120 5 April 08, 2025 12:00am divide evenly over waking hours Start: 03-19-2025 End: 04-08-2025 Carbidopa-Levodopa 25-100 mg tablet extended release Discontinued 2 {tbl} PO 4 TIMES DAILY March 19, 2025 12:00am April 08, 2025 3:16pm Start: 03-19-2025 Carbidopa-Levo dopa 25-100 mg tablet extended release Active 2 {tbl} PO 4 TIMES DAILY March 19, 2025 12:00am Start: 02-16-2025 End: 03-19-2025 Carbidopa-Levodopa 50-200 mg Tablet Extended Release Discontinued 1 {tbl} PO 5 TIMES DAILY 150 30 0 February 16, 2025 12:00am March 19, 2025 11:34am Start: 01-28-2025 End: 02-16-2025 Carbidopa-Levodopa 25-100 mg tablet extended release Discontinued 2 {tbl} PO .QID 240 January 28, 2025 1:14pm February 16, 2025 11:02am Start: 09-01-2023 End: 01-28-2025 take 2 tablets by mouth three times daily, then take 1 tablet by mouth once daily Carbidopa-Levodopa 25-100 mg tablet extended release Discontinued 0 .ROUTE .COMPLEX 210 November 26, 2024 2:28pm January 28, 2025 1:16pm Take 2 tablets orally 3 times daily and 1 tablet nightly. Start: 07-27-2023 End: 09-01-2023 take 1 tablet by mouth once daily, then take 1 tablet by mouth twice daily, then take 1 tablet by mouth three times daily Carbidopa-Levodopa 25-100 mg tablet extended release Discontinued 1 {tbl} PO .COMPLEX 90 0 July 27, 2023 1:00am September 01, 2023 5:40pm Take 1 tablet orally daily for 1 week then 1 tablet twice daily for 1 week then 1 tablet 3 times daily thereafter Start: 07-18-2023 End: 07-27-2023 take 1 tablet by mouth once daily, then take 1 tablet by mouth twice daily, then take 1 tablet by mouth three times daily Carbidopa-Levodopa 25-100 mg tablet Discontinued 1 {tbl} PO .COMPLEX 90 5 July 18, 2023 12:00am July 27, 2023 2:56pm 1 Tab PO daily for one week then 1 tab BID for one week then 1 tab TID thereafter cataplex B core (2 sources) Start: 01-21-2022 take 3 tablets by mo [facility] twice daily cataplex B core Active PO TWICE A DAY January 21, 2022 3:22pm 3 tabs bid Start: 01-21-2022 take 3 tablets by mo [facility] twice daily cataplex B core Active PO TWICE A DAY January 21, 2022 12:00am 3 tabs bid cholecalciferol 0.025 mg oral capsule (6 sources) Vitamin D Start: 03-19-2025 take 1 capsule by mouth once daily Cholecalciferol (Vitamin D3) 25 mcg (1,000 unit) capsule Active 25 ug PO daily March 19, 2025 12:00am citalopram 10 mg oral tablet (20 sources) Serotonin Reuptake Inhibitor Start: 11-08-2022 take 1 tablet by mouth once daily Citalopram (Celexa) 10 mg tablet Active 10 mg PO DAILY November 08, 2022 1:00am Start: 10-21-2022 take 1 tablet by [facility] once daily CeleXA 10 mg oral tablet 1 (one) tablet qd for 0 days Quantity: 30 {Tablet} Refills: 2 Ordered: 21-Oct-2022 Eleanor Armstrong DO, DO, Kathleen Start : 21-Oct-2022 Active Comments: substitute generic Comment on above: substitute generic ubidecarenone 30 mg oral capsule (20 sources) Start: 11-08-2022 Coenzyme Q10 30 mg capsule Active 30 mg PO DAILY November 08, 2022 1:00am Start: 06-28-2014 take 1 capsule by mo [facility] once daily CO Q10, 100MG (Oral Capsule) 1 (one) Capsule Capsule qd for 0 days Quantity: 30 {Capsule} Refills: 0 Ordered: 30-Jul-2014 Eleanor Armstrong DO, DO, Kathleen Start : 28-Jun-2014 Active Magnesium (20 sources) Start: 10-27-2021 take 200 mg by mouth once daily Magnesium Active 200 MG PO DAILY October 27, 2021 11:27am Start: 10-27-2021 take 1 tablet by balwinder once daily Magnesium 200 mg tablet Active 200 mg PO DAILY October 27, 2021 1:00am Start: 10-27-2021 take 200 mg by mouth once marcia y Magnesium Active 200 MG PO DAILY October 27, 2021 1:00am magnesium Active Multivitamin (Daily Multi-Vitamin) tablet (10 sources) Start: 02-15-2025 Multivitamin ( Daily Multi-Vitamin) tablet Active 1 {tbl} PO DAILY February 15, 2025 12:00am Multivitamin preparation (3 sources) Start: 10-27-2021 take 1 tablet by mouth once daily Bio V Multivitamin Active 1 TABLET PO DAILY October 27, 2021 11:26am Start: 10-27-2021 take 1 tablet by [facility] once daily Bio V Multivitamin Active 1 TABLET PO DAILY October 27, 2021 1:00am neurotrophin (2 sources) Start: 01-21-2022 take 1 tablet by [facility] three times daily neurotrophin Active PO THREE TIMES A DAY January 21, 2022 3:27pm 1 tablet three times a day take on empty stomach Start: 01-21-2022 take 1 tablet by [facility] three times daily neurotrophin Active PO THREE TIMES A DAY January 21, 2022 12:00am 1 tablet three times a day take on empty stomach Neutraview (3 sources) Start: 10-27-2021 take 1 capsule by [facility] once daily Neutraview Active 1 CAP PO DAILY October 27, 2021 11:36am Start: 10-27-2021 take 1 capsule by [facility] once daily Neutraview Active 1 CAP PO DAILY October 27, 2021 1:00am nitrofurantoin, macrocrystals 25 mg / nitrofurantoin, monohydrate 75 mg oral capsule (2 sources) Nitrofuran Antibacterial Start: 05-04-2025 take 1 capsule by mouth every twelve hours at mealtime Nitrofurantoin Monohyd/M-Cryst (Macrobid) 100 mg capsule Active 100 mg PO Q12H 10 5 0 May 04, 2025 12:00am May 08, 2025 12:00am must administer with a meal/food [place]-3 Fatty Acids (3 sources) Start: 10-27-2021 take 1000 mg by mouth once daily [place]-3 Fatty Acids Active 1000 MG PO DAILY October 27, 2021 11:37am Start: 10-27-2021 take 1000 mg by mouth once mona ly [place]-3 Fatty Acids Active 1000 MG PO DAILY October 27, 2021 1:00am [place]-3 Fatty Acids 1,000 mg capsule (20 sources) Start: 11-08-2022 take 1 capsule by mouth once daily [place]-3 Fatty Acids 1,000 mg capsule Active 1000 mg PO DAILY November 08, 2022 1:00am Start: 10-27-2021 End: 11-08-2022 take 1 capsule by mouth once daily [place]-3 Fatty Acids 1,000 mg capsule Discontinued 1000 mg PO DAILY October 27, 2021 1:00am November 08, 2022 1:13pm potassium chloride 10 meq extended release oral capsule (5 sources) Start: 10-27-2021 take 1 capsule by mouth once daily Potassium Chloride 10 mEq capsule, extended release Active 10 meq PO DAILY October 27, 2021 1:00am potassium gluconate 2.5 meq oral tablet (6 sources) Start: 03-19-2025 take 1 tablet by mouth once daily Potassium Gluconate 595 mg (99 mg) tablet Active 595 mg PO daily March 19, 2025 12:00am Queretin (3 sources) Start: 10-27-2021 take 2 capsules by mouth once daily Queretin Active 2 CAP PO DAILY October 27, 2021 11:38am Start: 10-27-2021 End: 03-04-2022 take 2 capsules by mouth once daily Queretin Discontinued 2 CAP PO DAILY October 27, 2021 1:00am March 04, 2022 8:52am Stress Adapt Day (3 sources) Start: 10-27-2021 take 2 capsules by m outh once daily Stress Adapt Day Active 2 CAP PO DAILY October 27, 2021 11:40am Start: 10-27-2021 take 2 capsules by m outh once daily Stress Adapt Day Active 2 CAP PO DAILY October 27, 2021 1:00am thioctic acid 300 mg oral capsule (6 sources) Start: 03-19-2025 take 1 capsule by mouth once daily Alpha Lipoic Acid 300 mg capsule Active 300 mg PO daily March 19, 2025 12:00am Turmeric extract (15 sources) Start: 10-27-2021 take 400 mg by mouth once daily Turmeric Active 400 MG PO DAILY October 27, 2021 11:38am Start: 10-27-2021 End: 06-08-2022 take 1 capsule by mouth once daily Turmeric 400 mg capsule Discontinued 400 mg PO DAILY October 27, 2021 1:00am June 08, 2022 2:02pm Start: 10-27-2021 take 400 mg by mouth once marcia y Turmeric Active 400 MG PO DAILY October 27, 2021 1:00am Vitamin D3-Vitamin K2 (3 sources) Start: 10-27-2021 take 1 capsule by mouth once daily Vitamin D3-Vitamin K2 Active 1 CAP PO DAILY October 27, 2021 11:37am Start: 10-27-2021 take 1 capsule by mo [facility] once daily Vitamin D3-Vitamin K2 Active 1 CAP PO DAILY October 27, 2021 1:00am Completed/Discontinued Medications Medication Drug Class(es) Dates Sig (Normalized) Sig (Original) Ageless Brain tablet (12 sources) Start: 10-27-2021 End: 11-08-2022 take 1 tablet by mouth once daily Ageless Brain tablet Discontinued 1 {tbl} PO DAILY 0 October 27, 2021 1:00am November 08, 2022 1:12pm Start: 10-27-2021 End: 11-08-2022 take 1 tablet by mouth once daily Ageless Brain tablet Discontinued 1 {tbl} PO DAILY October 27, 2021 1:00am November 08, 2022 1:12pm agless brain (18 sources) agless brain Act david amLODIPine 5 mg oral tablet (20 sources) Dihydropyridine Calcium Channel Jeannie Start: 09-02-20 End: 09-02-20 take 1 tablet by mouth once daily Norvasc 5 MG Oral Tablet 1 (one) Tablet qd for 90 days Quantity: 90 {Tablet} Refills: 2 Ordered: 02-Sep-2021 Eleanor Armstrong DO, DO, Kathleen Start : 02-Sep-2021 End : 02-Sep-2021 Discontinued ANTIOXIDANT FORMULA/MINERALS (Oral Capsule) (20 sources) Start: 06-28-20 14 take 1 capsule by mouth once daily ANTIOXIDANT FORMULA/MINERALS (Oral Capsule) 1 (one) Capsule Capsule qd of each for 0 days Quantity: 30 {Capsule} Refills: 0 Ordered: 30-Jul-2014 Eleanor Armstrong DO, DO, Kathleen Start : 28-Jun-2014 Active Comments: Bio V , Bio M, Bio C, MSM Joint, Nutraview Comment on above: Bio V , Bio M, Bio C , MSM Joint, Nutraview atorvastatin 40 mg oral tablet (9 sources) HMG-CoA Reductase Inhibitor Start: 02-17-20 End: 03-19-20 take 1 tablet by mouth at bedtime Atorvastatin (Lipitor) 40 mg tablet Discontinued 40 mg PO AT BEDTIME February 16, 2025 12:00am March 19, 2025 11:32am azithromycin 250 mg oral tablet (12 sources) Macrolide Antimicrobial Start: 10-06-19 End: 11-08-19 Azithromycin 250 mg tablet Discontinued 250 mg PO daily 6 October 06, 2022 1:00am November 08, 2022 1:12pm 2 tablets today, then 1 tablet daily on days 2 through 5 Bio M for Women - MultiMineral capsule (12 sources) Start: 10-27-19 End: 02-16-20 take 1 capsule by mouth once daily Bio M for Women - MultiMineral capsule Discontinued 1 NMA PO DAILY 0 October 27, 2021 1:00am February 15, 2025 2:42am Start: 10-27-2021 End: 02-15-2025 take 1 capsule by mouth once daily Bio M for Women - MultiMineral capsule Discontinued 1 NMA PO DAILY October 27, 2021 1:00am February 15, 2025 2:42am Start: 10-27-2021 take 1 capsule by mo [facility] once daily Bio M for Women - MultiMineral capsule Active 1 NMA PO DAILY October 27, 2021 1:00am Bio V Multivitamin tablet (12 sources) Start: 10-27-2021 End: 11-08-2022 Bio V Multivitamin tablet Discontinued 1 {tbl} PO DAILY 0 October 27, 2021 1:00am November 08, 2022 1:09pm Start: 10-27-2021 End: 11-08-2022 Bio V Multivitamin tablet Di scontinued 1 {tbl} PO DAILY October 27, 2021 1:00am November 08, 2022 1:09pm bioc (18 sources) bioc Active biom for women (18 sources) biom for women A ctive cataplex B core tablet (12 sources) Start: 01-21-2022 End: 02-15-2025 take 3 tablets by mouth twice daily cataplex B core tablet Discontinued PO TWICE A DAY 0 January 21, 2022 12:00am February 15, 2025 2:31am 3 tabs bid Start: 01-21-2022 End: 02-15-2025 take 3 tablets by mouth twice daily cataplex B core tablet Discontinued PO TWICE A DAY January 21, 2022 12:00am February 15, 2025 2:31am 3 tabs bid Start: 01-21-2022 take 3 tablets by mo [facility] twice daily cataplex B core tablet Active PO TWICE A DAY January 21, 2022 12:00am 3 tabs bid cyclobenzaprine hydrochloride 10 mg oral tablet (20 sources) Muscle Relaxant Start: 02-25-2021 End: 07-16-2021 take 1 tablet by mouth at bedtime as needed, then take 1 tablet by mouth once daily as needed Cyclobenzaprine HCl 10 MG Oral Tablet 1 (one) Tablet 1-2 at hs prn for muscle cramping and can take 1 qd prn for 0 days Quantity: 30 {Tablet} Refills: 0 Ordered: 16-Jul-2021 Gravius Malgorzata MARTINEZ Start : 25-Feb-2021 End : 16-Jul-2021 Inactive d3 k2 (18 sources) d3 k2 Active dexamethasone 6 mg oral tablet (12 sources) Corticosteroid Start: 10-06-2022 End: 02-15-2025 take 1 tablet by mouth once daily Dexamethasone 6 mg tablet Discontinued 6 mg PO DAILY October 06, 2022 1:00am February 15, 2025 2:30am flurbiprofen 100 mg oral tablet (12 sources) Nonsteroidal Anti-inflammatory Drug Start: 12-18-2024 End: 12-19-2024 take 1 tablet by mouth three times daily as needed for pain Flurbiprofen 100 mg tablet Discontinued 100 mg PO THREE TIMES A DAY as needed for pain 90 4 December 18, 2024 12:00am December 19, 2024 12:29pm hydroCHLOROthiazide 25 mg oral tablet (20 sources) Thiazide Diuretic Start: 11-26-2021 End: 10-21-2022 take 1 tablet by mouth once daily Hydrochlorothiazide 25 mg tablet Discontinued 25 mg PO DAILY March 04, 2022 12:00am October 06, 2022 9:43am Start: 10-28-2021 take 1 tablet by balwinder th once daily hydroCHLOROthiazide 25 MG Oral Tablet 1 (one) Tablet qd for 0 days Quantity: 30 {Tablet} Refills: 2 Ordered: 28-Oct-2021 Day MARTINEZ Malgorzata Start : 28-Oct-2021 Active Start: 09-02-2021 take 1 tablet by balwinder th once daily hydroCHLOROthiazide 25 MG Oral Tablet 1 (one) Tablet qd for 0 days Quantity: 30 {Tablet} Refills: 2 Ordered: 02-Sep-2021 Mara Chin LPN Start : 02-Sep-2021 Active ibuprofen 200 mg oral capsule (20 sources) Nonsteroidal Anti-inflammatory Drug Start: 02-25-2021 End: 10-21-2022 take 1 capsule by mouth every six hours as needed AdviL Liqui-GeL 200 mg oral capsule 1 (one) Capsule q6hrs prn for 0 days Quantity: 30 {Capsule} Refills: 0 Ordered: 21-Oct-2022 Milly MARTINEZHayes Start : 25-Feb-2021 End : 21-Oct-2022 Inactive ibuprofen Active Fvxxsmzgqc-Pvdmchv-Vfssasbjs in (Folinic-Plus) 4-50-2 mg tablet (11 sources) Start: 04-08-2025 End: 05-02-2025 Lqdgucvmyl-Pyemqie-Epgvnxepk in (Folinic-Plus) 4-50-2 mg tablet Discontinued 1 NMA PO daily 30 April 08, 2025 3:14pm May 02, 2025 2:34pm Start: 04-08-2025 Leucovorin-Pyr idox-Mecobalamin (Folinic-Plus) 4-50-2 mg tablet Active 1 NMA PO daily 30 April 08, 2025 3:14pm Start: 03-19-2025 End: 04-08-2025 Sshpzkyfcj-Qredprt-Lwcexvjex in (Folinic-Plus) 4-50-2 mg tablet Discontinued 1 NMA PO daily 30 March 19, 2025 12:00am April 08, 2025 3:14pm Start: 03-19-2025 Leucovorin-Pyr idox-Mecobalamin (Folinic-Plus) 4-50-2 mg tablet Active 1 NMA PO daily 30 March 19, 2025 12:00am lisinopril 10 mg oral tablet (20 sources) Angiotensin Converting Enzyme Inhibitor Start: 01-20-2023 End: 01-20-2023 take 1 tablet by mouth once daily lisinopriL 10 mg oral tablet 1 (one) Tablet QD for 0 days Quantity: 90 {Tablet} Refills: 1 Ordered: 20-Jan-2023 Eleanor Armstrong DO, DO, Kathleen Start : 20-Jan-2023 End : 20-Jan-2023 Discontinued Start: 12-07-2022 take 1 tablet by balwinder once daily lisinopriL 10 mg oral tablet 1 (one) Tablet QD for 0 days Quantity: 90 {Tablet} Refills: 1 Ordered: 07-Dec-2022 Eleanor Armstrong DO, DO, Kathleen Start : 07-Dec-2022 Active Start: 01-26-2022 End: 11-15-2023 take 1 tablet by mouth once daily Lisinopril 10 mg tablet Discontinued 10 mg PO DAILY March 04, 2022 12:00am November 15, 2023 3:23pm Start: 11-26-2021 take 1 tablet by balwinder th once daily Lisinopril 10 MG Oral Tablet 1 (one) Tablet QD for 0 days Quantity: 90 {Tablet} Refills: 1 Ordered: 26-Nov-2021 Eleanor Armstrong DO, DO, Kathleen Start : 26-Nov-2021 Active Start: 10-28-2021 take 1 tablet by balwinder th once daily Lisinopril 10 MG Oral Tablet 1 (one) Tablet QD for 0 days Quantity: 30 {Tablet} Refills: 1 Ordered: 28-Oct-2021 Gravius DORMITORY COUNSELOR, Malgorzata Start : 28-Oct-2021 Active LORazepam 0.5 mg oral tablet (10 sources) Benzodiazepine Start: 10-21-2022 take 1 tablet by mouth once daily as needed for anxiety Ativan 0.5 mg oral tablet 1 (one) tablet qd prn anxiety attack for 0 days Quantity: 14 {Tablet} Refills: 0 Ordered: 21-Oct-2022 Mara Chin LPN Start : 21-Oct-2022 Active Comments: fourteen oars rev Comment on above: fourteen oars rev meloxicam 7.5 mg oral tablet (20 sources) Nonsteroidal Anti-inflammatory Drug Start: 02-15-2025 End: 02-15-2025 take 1 tablet by mouth twice daily as needed for pain Meloxicam 7.5 mg tablet Discontinued 7.5 mg PO TWICE A DAY as needed for pain February 15, 2025 12:00am February 15, 2025 2:42am Start: 12-19-2024 End: 01-28-2025 take 1 tablet by mouth twice daily as needed for pain Meloxicam 7.5 mg tablet Discontinued 7.5 mg PO TWICE A DAY as needed for pain 60 5 December 19, 2024 12:00am January 28, 2025 1:15pm Start: 02-18-2021 End: 07-16-2021 take 1 tablet by mouth once daily at bedtime Mobic 7.5 MG Oral Tablet 1 (one) Tablet qhs for 0 days Quantity: 30 {Tablet} Refills: 0 Ordered: 16-Jul-2021 Malgorzata Bernstein CMA Start : 18-Feb-2021 End : 16-Jul-2021 Inactive Comments: or generic Comment on above: or generic methylPREDNISolone 4 mg oral tablet (20 sources) Corticosteroid Start: 02-19-20 End: 02-26-20 21 take 1 tablet by mouth once at mealtime Medrol 4 MG Oral Tablet Therapy Pack 1 (one) Tablet use as directed per instructions in pack for 0 days Quantity: 1 {Tablet} Refills: 0 Ordered: 25-Feb-2021 Daryl Torres LPN Start : 18-Feb-2021 End : 25-Feb-2021 Inactive Comments: with food Comment on above: with food Multivit,Stress Formula-Zinc tablet (12 sources) Start: 11-08-19 End: 02-16-20 Multivit,Stress Formula-Zinc tablet Discontinued {tbl} PO DAILY November 08, 2022 1:00am February 15, 2025 2:30am Start: 11-08-2022 Multivit,Stres s Formula-Zinc tablet Active {tbl} PO DAILY November 08, 2022 1:00am Argftqrn88-Fbdrk Ac-Nadh-Coq 10 1-5-50 mg tablet (12 sources) Start: 11-08-2022 End: 02-15-2025 Pqyxkxsn99-Ryzpp Ac-Nadh-Coq 10 1-5-50 mg tablet Discontinued {tbl} PO TWICE A DAY November 08, 2022 1:00am February 15, 2025 2:30am Start: 11-08-2022 Puzcvdqo47-Csj ic Vh-Ytcf-Gji61 1-5-50 mg tablet Active {tbl} PO TWICE A DAY November 08, 2022 1:00am naproxen 500 mg oral tablet (11 sources) Nonsteroidal Anti-inflammatory Drug Start: 01-28-2025 End: 05-02-2025 take 1 tablet by mouth twice daily as needed for pain Naproxen 500 mg tablet Discontinued 500 mg PO TWICE A DAY as needed for pain 60 3 January 28, 2025 12:00am May 02, 2025 2:34pm neurotrophin tablet (12 sources) Start: 01-21-2022 End: 02-15-2025 take 1 tablet by mouth three times daily neurotrophin tablet Discontinued PO THREE TIMES A DAY 0 January 21, 2022 12:00am February 15, 2025 2:31am 1 tablet three times a day take on empty stomach Start: 01-21-2022 End: 02-15-2025 take 1 tablet by mouth three times daily neurotrophin tablet Discontinued PO THREE TIMES A DAY January 21, 2022 12:00am February 15, 2025 2:31am 1 tablet three times a day take on empty stomach Start: 01-21-2022 take 1 tablet by balwinder th three times daily neurotrophin tablet Active PO THREE TIMES A DAY January 21, 2022 12:00am 1 tablet three times a day take on empty stomach Neutraview capsule (12 sources) Start: 10-27-2021 End: 02-15-2025 take 1 capsule by mouth once daily Neutraview capsule Discontinued 1 NMA PO DAILY 0 October 27, 2021 1:00am February 15, 2025 2:31am Start: 10-27-2021 End: 02-15-2025 take 1 capsule by mouth once daily Neutraview capsule Discontinued 1 NMA PO DAILY October 27, 2021 1:00am February 15, 2025 2:31am Start: 10-27-2021 take 1 capsule by mo [facility] once daily Neutraview capsule Active 1 NMA PO DAILY October 27, 2021 1:00am nutraview (18 sources) nutraview Active Potassium (18 sources) potassium 99 mg daily Active Queretin capsule (12 sources) Start: 10-27-2021 End: 03-04-2022 take 1 capsule by mouth once daily Queretin capsule Discontinued 2 NMA PO DAILY 0 October 27, 2021 1:00am March 04, 2022 8:52am Start: 10-27-2021 End: 03-04-2022 take 1 capsule by mouth once daily Queretin capsule Discontinued 2 NMA PO DAILY October 27, 2021 1:00am March 04, 2022 8:52am rasagiline 0.5 mg oral tablet (12 sources) Monoamine Oxidase Inhibitor Start: 06-08-2022 End: 11-09-2022 take 1 tablet by mouth once daily in the morning Rasagiline (Azilect) 0.5 mg tablet Discontinued 0.5 mg PO EVERY MORNING 30 June 08, 2022 12:00am November 09, 2022 10:18am rOPINIRole 3 mg oral tablet (20 sources) Nonergot Dopamine Agonist Start: 06-28-2023 End: 04-08-2025 take 1 tablet by mouth twice daily Ropinirole 3 mg tablet Discontinued 3 mg PO TWICE A DAY 60 November 26, 2024 2:33pm April 08, 2025 3:24pm Start: 11-09-2022 End: 06-28-2023 take 1 tablet by mouth twice daily Ropinirole 2 mg tablet Discontinued 2 mg PO TWICE A DAY 60 April 05, 2023 10:17pm June 28, 2023 5:12pm Start: 03-04-2022 End: 11-09-2022 take 1 tablet by mouth three times daily Ropinirole 1 mg tablet Discontinued 1 mg PO THREE TIMES A DAY 90 0 May 27, 2022 5:02pm June 08, 2022 7:05pm Start: 01-21-2022 End: 03-04-2022 take 1 tablet by mouth once daily, then take 1 tablet by mouth twice daily, then take 1 tablet by mouth three times daily Ropinirole 0.5 mg tablet Discontinued 0.5 mg PO .COMPLEX 90 January 21, 2022 12:00am March 04, 2022 10:06am 1 tab PO daily for one week then 1 tab BID for one week then 1 tab TID thereafter Comment on above: Per neuro Stress Adapt Day capsule (12 sources) Start: 10-27-2021 End: 06-08-2022 take 1 capsule by mouth once daily Stress Adapt Day capsule Discontinued 2 NMA PO DAILY 0 October 27, 2021 1:00am June 08, 2022 2:02pm Start: 10-27-2021 End: 06-08-2022 take 1 capsule by mouth once daily Stress Adapt Day capsule Discontinued 2 NMA PO DAILY October 27, 2021 1:00am June 08, 2022 2:02pm Super B Maxi Complex 0.4 mg oral tablet (11 sources) take 1 mg by mouth once daily Super B Maxi Complex 0.4 mg oral tablet Once a day. (0.4 mg) Active Super Stress 600 with Zinc tablet (oral) (11 sources) take 1 tablet by mouth once daily Super Stress 600 with Zinc tablet (oral) 500mg Once a day. Active taurine 1000 mg oral capsule (13 sources) Start: 03-04-20 End: 02-16-20 take 1 capsule by mouth once daily Taurine 1,000 mg capsule Discontinued 1000 mg PO DAILY March 04, 2022 12:00am February 15, 2025 2:31am traMADol hydrochloride 50 mg oral tablet (15 sources) Opioid Agonist Start: 12-28-19 End: 10-27-19 take 1 tablet by mouth every four hours as needed for pain Tramadol 50 MG tablet Discontinued 50 mg PO EVERY 4 HOURS NEEDED as needed for pain December 28, 2019 12:00am October 27, 2021 11:24am trospium chloride 20 mg oral tablet (7 sources) Cholinergic Muscarinic Antagonist Start: 06-22-20 23 take 1 tablet by mouth twice daily at mealtime trospium 20 mg oral tablet 1 (one) tablet bid on empty stomach for 0 days Quantity: 30 {Tablet} Refills: 3 Ordered: 22-Jun-2023 Eleanor Armstrong DO, DO, Kathleen Start : 22-Jun-2023 Active Comments: empty stomach means >1hr prior to meals Start: 01-20-2023 take 1 tablet by balwinder twice daily at mealtime trospium 20 mg oral tablet 1 (one) tablet bid on empty stomach for 0 days Quantity: 30 {Tablet} Refills: 3 Ordered: 20-Jan-2023 Sarkis Marquez LPN Start : 20-Jan-2023 Active Comments: empty stomach means >1hr prior to meals Comment on above: empty stomach means >1hr prior to meals tumeric (18 sources) tumeric Active Vit N-Yrpycfryu-Wqczxz v,[employer] (Quercetin Complex) 500-250-33 mg capsule (12 sources) Start: 11-08-2022 End: 02-15-2025 take 2 capsules by mouth once daily Vit L-Tghpvjzck-Khohlxk,Ci trus (Quercetin Complex) 500-250-33 mg capsule Discontinued NMA PO DAILY November 08, 2022 1:00am February 15, 2025 2:31am 2 caps daily Start: 11-08-2022 take 2 capsules by [facility] once daily Vit M-Gwgekpvzk-Zrniryf,[employer] (Querceti n Complex) 500-250-33 mg capsule Active NMA PO DAILY November 08, 2022 1:00am 2 caps daily Vitamin D3-Vitamin K2 250 mcg (10,000 unit)-45 mcg capsule (12 sources) Start: 10-27-2021 End: 02-15-2025 take 1 capsule by mouth once daily Vitamin D3-Vitamin K2 250 mcg (10,000 unit)-45 mcg capsule Discontinued 1 NMA PO DAILY October 27, 2021 1:00am February 15, 2025 2:31am Start: 10-27-2021 take 1 capsule by [facility] once daily Vitamin D3-Vitamin K2 250 mcg (10,000 unit)-45 mcg capsule Active 1 NMA PO DAILY October 27, 2021 1:00am vitamins (15 sources) Start: 12-28-2019 End: 10-27-2021 vitamins Discontinued PO Apr il 2019 10:43am October 27, 2021 11:24am Start: 12-28-2019 End: 10-27-2021 vitamins Discontinued PO 0 A pril 2019 12:00am October 27, 2021 11:24am Start: 12-28-2019 End: 10-27-2021 vitamins Discontinued PO Dec 12:00am October 27, 2021 11:24am Problems Active Problems Problem Classification Problem Date Documented Date Episodic/Chronic Acquired foot deformities (14 sources) Acquired deformity of toe; Translations: [Hammer toe, acquired] 01-20-2023 Chronic Acquired foot deformities (20 sources) Acquired deformity of toe; Translations: [Acquired deformity of toe, unspecified laterality] 11-18-2022 Episodic Acute bronchitis (12 sources) Acute bronchitis; Translations: [Acute bronchitis, unspecified] 10-06-2022 Episodic Anxiety disorders (4 sources) Anxiety; Translations: [Anxiety disorder, unspecified] 05-06-2025 Chronic Cardiac dysrhythmias (20 sources) Rubén rhythm disorder; 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-13-2020 Chronic Coma; stupor; and brain damage (12 sources) Drowsy; Translations: [Sleepiness] 02-21-2023 Episodic Conditions associated with dizziness or vertigo (20 sources) Dizzy spells; Translations: [Dizzy spells] 09-02-2021 Episodic Comment on above: i think mild vertigo Deficiency and other anemia (13 sources) Anemia; Translations: [Anemia, unspecified] 03-04-2022 Episodic E Codes: Transport; not MVT (3 sources) Animal-rider injured by fall from or being thrown from horse in noncollision accident, initial encounter; Translations: [Animal-rider injured by fall from or being thrown from horse in noncollision accident] Episodic Essential hypertension (20 sources) Benign hypertension; Translations: [HTN (hypertension), benign] Resolved: 01-20-2023 10-28-2021 Chronic Fracture of upper limb (15 sources) Closed fracture of clavicle; Translations: [Fracture of unspecified part of left clavicle, initial encounter for closed fracture] 12-29-2019 Episodic Genitourinary symptoms and ill-defined conditions (2 sources) Urinary incontinence; Translations: [Urinary incontinence] 06-29-2023 Chronic Genitourinary symptoms and ill-defined conditions (4 sources) Increased frequency of urination; Translations: [Frequency of micturition] Onset: 05-08-2025 05-04-2025 Episodic Heart valve disorders (20 sources) Irregular heart beat; Translations: [Irregular heartbeat] 08-13-2020 Chronic Comment on above: sensation Heart valve disorders (20 sources) Irregular heart beat Episodic Mood disorders (20 sources) Depressive disorder; Translations: [Depressed] 10-21-2022 Chronic Nonspecific chest pain (20 sources) Chest discomfort; Translations: [Chest pressure] Resolved: 09-02-2021 08-13-2020 Episodic Other aftercare (20 sources) Patient encounter status; Translations: [Therapeutic drug monitoring] 10-28-2021 Episodic Comment on above: educated importance of screening for colon cancer Other and ill-defined cerebrovascular disease (20 sources) Small vessel cerebrovascular disease; 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] 09-24-2021 Chronic Other bone disease and musculoskeletal deformities (20 sources) Costal chondritis; Translations: [Costochondritis] 08-13-2020 Episodic Other circulatory disease (20 sources) Elevated blood pressure; Translations: [Elevated blood pressure reading] 09-02-2021 Episodic Comment on above: see note -- watch vs cuff at home?- one normal one elev will come to office to validate Other connective tissue disease (20 sources) Pain in right hand; Translations: [Hand pain, right] 02-18-2021 Episodic Other connective tissue disease (20 sources) Pain in right lower limb; Translations: [Leg pain, right] 02-18-2021 Episodic Other connective tissue disease (20 sources) Abnormal gait due to muscle weakness; Translations: [Abnormal gait due to muscle weakness] 09-02-2021 Episodic Comment on above: i think its more the pathology in her ankle relatedmri sched to look at ankle Other connective tissue disease (12 sources) Plantar fasciitis of right foot; Translations: [Plantar fascial fibromatosis] 05-15-2024 Episodic Other connective tissue disease (11 sources) Swelling of right lower limb; Translations: [Other specified soft tissue disorders] 02-14-2025 Episodic Other connective tissue disease (20 sources) Muscle weakness of upper limb; Translations: [Other symptoms and signs involving the musculoskeletal system] 02-15-2025 Episodic Other connective tissue disease (20 sources) Pain in lower limb; Translations: [Pain in right leg] 02-16-2025 Episodic Other connective tissue disease (1 source) Pain in right leg; Translations: [Pain in right leg] Onset: 03-28-2025 Episodic Other connective tissue disease (1 source) Pain in left leg; Translations: [Pain in left leg] Onset: 03-28-2025 Episodic Other connective tissue disease (1 source) Other symptoms and signs involving the musculoskeletal system; Translations: [Other symptoms and signs involving the musculoskeletal system] Onset: 02-18-2025 Episodic Other connective tissue disease (1 source) Pain in right thigh; Translations: [Pain in right thigh] Onset: 02-15-2025 Episodic Other connective tissue disease (1 source) Other specified soft tissue disorders; Translations: [Other specified soft tissue disorders] Onset: 02-15-2025 Episodic Other diseases of bladder and urethra (20 sources) Overactive bladder; Translations: [Overactive bladder] 01-20-2023 Chronic Comment on above: tells me taking rx o nce a day and working and at 8pm Other fractures (3 sources) Fracture of rib; Translations: [Fracture of one rib, left side, initial encounter for closed fracture] Episodic Other fractures (12 sources) Fracture of left rib; Translations: [Fracture of one rib, left side, initial encounter for closed fracture] 12-29-2019 Episodic Other hereditary and degenerative nervous system conditions (20 sources) Restless legs; Translations: [Restless legs syndrome] 12-18-2024 Chronic Other hereditary and degenerative nervous system conditions (1 source) Mild cognitive impairment, so stated; Translations: [Mild cognitive impairment of uncertain or unknown etiology] Onset: 12-18-2024 Chronic Other nervous system disorders (20 sources) Neuropathy of lower limb; Translations: [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] 10-28-2021 Chronic Comment on above: chronic Other nervous system disorders (3 sources) Deep peroneal neuropathy; 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, right lower limb] Chronic Other nervous system disorders (5 sources) Lesion of lateral popliteal nerve, right lower limb; 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] Chronic Other nervous system disorders (20 sources) Polyneuropathy; Translations: [Polyneuropathy, unspecified] 03-24-2022 Chronic Comment on above: mor acute Other nervous system disorders (4 sources) Polyneuropathy, unspecified; Translations: [Unspecified hereditary and idiopathic peripheral neuropathy] Onset: 03-28-2025 Chronic Other nervous system disorders (12 sources) Right deep peroneal neuropathy; 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, right lower limb] 11-09-2022 Chronic Other nervous system disorders (20 sources) Abnormal gait; Translations: [Abnormal gait] 09-02-2021 Episodic Other nervous system disorders (2 sources) Unsteadiness on feet; Translations: [Unsteadiness on feet] Onset: 02-18-2025 Episodic Other non-traumatic joint disorders (20 sources) Instability of joint of right ankle; Translations: [Instability of right ankle joint] 09-02-2021 Episodic Other nutritional; endocrine; and metabolic disorders (20 sources) Body mass index less than 20; Translations: [BMI less than 19,adult] 09-02-2021 Episodic Other screening for suspected conditions (not mental disorders or infectious disease) (1 source) Encounter for screening mammogram for malignant neoplasm of breast; Translations: [Encounter for screening mammogram for malignant neoplasm of breast] Onset: 04-09-2025 Episodic Parkinson`s disease (20 sources) Parkinson's disease; Translations: [Parkinson's disease] Chronic Parkinson`s disease (7 sources) Parkinson`s disease; Translations: [Parkinson's disease without dyskinesia, with fluctuations] Onset: 02-17-2025 Residual codes; unclassified (20 sources) Body mass index 20-24 - normal; Translations: [BMI 21.0-21.9, adult] 02-18-2021 Episodic Residual codes; unclassified (20 sources) Non-smoker; Translations: [Non-smoker] 08-13-2020 Episodic Residual codes; unclassified (10 sources) Postmenopausal state; Translations: [Postmenopausal (Renamed from Postmenopausal status)] 03-18-2023 Episodic Spondylosis; intervertebral disc disorders; other back problems (20 sources) Sciatica; Translations: [Sciatica of right side] Onset: 03-15-2025 02-18-2021 Episodic Unclassified (20 sources) Unclassified (12 sources) Animal-rider injured by fall from or being thrown from horse in noncollision accident, initial encounter 12-28-2019 Viral infection (12 sources) Disease caused by 2019-nCoV; Translations: [COVID-19] 10-06-2022 Episodic Past or Other Problems Problem Classification Problem Date Documented Date Episodic/Chronic Nutritional deficiencies (20 sources) Iron deficiency; Translations: [Iron deficiency] Onset: 12-20-2024 12-18-2024 Episodic Other hematologic conditions (1 source) Personal history of diseases of the blood and blood-forming organs and certain disorders involving the immune mechanism; Translations: [Personal history of diseases of the blood and blood-forming organs and certain disorders involving the immune mechanism] Onset: 12-18-2024 Episodic Other nervous system disorders (2 sources) Paresthesia of skin; Translations: [Paresthesia of skin] Onset: 01-29-2025 Episodic Unclassified (20 sources) Abortions/Miscarriage s; Translations: [Abortions/Miscarriag es] 08-13-2020 Comment on above: 1. Unclassified (20 sources) Body mass index 20-24 - normal; Translations: [Body mass index (BMI) 21.0-21.9, adult] 08-13-2020 Unclassified (20 sources) PAC (premature atrial contraction) Unclassified (20 sources) Sinus arrhythmia Unclassified (20 sources) Deliveries (Parity); Translations: [Deliveries (Parity)] 08-13-2020 Comment on above: 2. Unclassified (20 sources) Non-smoker; Translations: [Non-smoker] 08-13-2020 Unclassified (20 sources) Pre-operative exam (Renamed from Encounter for pre-operative examination); Translations: [Preprocedural examination done] 08-13-2020 Unclassified (20 sources) Pregnancies (); Translations: [Pregnancies ()] 08-13-2020 Comment on above: 3. Unclassified (20 sources) BMI 21.0-21.9, adult Unclassified (20 sources) Chest pressure Unclassified (20 sources) Costochondritis Unclassified (20 sources) BMI 20.0-20.9, adult Unclassified (20 sources) Sciatica of right side Unclassified (20 sources) Leg pain, right Unclassified (20 sources) Hand pain, right Unclassified (20 sources) Elevated blood pressure reading Unclassified (20 sources) Abnormal gait due to muscle weakness Unclassified (20 sources) BMI less than 19,adult Unclassified (18 sources) Dizzy spells Unclassified (18 sources) Instability of right ankle joint Unclassified (15 sources) Cerebral microvascular disease Unclassified (20 sources) HTN (hypertension), benign Unclassified (12 sources) Therapeutic drug monitoring Unclassified (20 sources) 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 Unclassified (20 sources) Unspecified Diagnosis 03-05-2022 Unclassified (8 sources) Patient encounter status 02-21-2025 Results Test Name Value Interpretation Reference Range Facility Urine Cultureon 05-08-2025 [facility] Mixed Gram Positive Organisms [place] Count 25,000-50,000 [facility] Mixed contaminants. Submit a new specimen if indicated. Normal [facility] Comment on above: Performed By: #### L [id number] #### [facility] [address] [place], [place], [address] Urine cultureOrdered By: Armani Grier on 05-06-2025 Bacteria identified Cx Nom (U) Positive Abnormal [facility] - Chemistry and C hemistry - challengeOrdered By: Leander Grier on 05-04-2025 Glucose Ql (U) Negative [facility] Ketones Ql (U) Large (80+) [facility] Specific gravity (U) [Rel density] 1.030 [facility] Urobilinogen (U) [Mass/Vol] 1 mg/dL [facility] - Hematology and Cell countsOrdered By: Leander Grier on 05-04-2025 Hemoglobin Ql (U) Negative [facility] - Specimen inform ationOrdered By: Leander Grier on 05-04-2025 Clarity (U) Cloudy [facility] Color (U) DARK YELLOW [facility] - UrinalysisOrder ed By: Leander Grier on 05-04-2025 Nitrite Ql (U) Negative [facility] Protein Ql (U) 3+ [facility] No Panel InformationOrdered By: Leander Grier on 05-04-2025 Urine Leukocytes Negatve [facility] Urine Non-Hemolyzed Blood [facility] Visit Reporton 0 05-04-2025 Urgent Care Visit Report [facility] [address], [address] [place], [place] [address] OFFICE VISIT Date of Service: 05/04/25 MR#: [id number] Acct: [id number] Name: ANTHONY CHAUDHARY Rep #: [id number] : 1955 Provider: NUNU Schultz Age/Sex: 69/F Location: [facility] Status: Signed Intake Vital Signs 05/02/25 13:50 05/04/25 10:31 Height 5 ft 5 in 5 ft 5 in Weight: 116 lb 2 oz 113 lb 6 oz BMI 19.3 18.8 BP 119/72 108/78 Blood Pressure Location Lt brachial Lt brachial Position Sitting Sitting Respiration 16 Pulse 68 79 Pulse Source Monitor Monitor Temp 97.7 F L Temp Source Oral Pulse Oximetry (%) 97 Oxygen Delivery Method room air Intake Visit Reasons: CONCERN FOR UTI Chief Complaint: UTI Allergies No Known Allergies Allergy (Verified 05/04/25 10:42) Medications ???Medication ???Instructions ???Recorded ???Confirmed ???Type magnesium 200 mg tablet 200 mg PO DAILY 10/27/21 05/04/25 History citalopram 10 mg tablet (Celexa) 10 mg PO DAILY 11/08/22 05/04/25 H istory coenzyme Q10 30 mg capsule 30 mg PO DAILY 11/08/22 05/04/25 H istory omega-3 fatty acids 1,000 mg 1,000 mg PO DAILY 11/08/22 5 History capsule multivitamin (Daily Multi-Vitamin 1 tab PO DAILY 02/15/25 05/04/25 History tablet) alpha lipoic acid 300 mg capsule 300 mg PO QDAY 03/19/25 05/04/25 H istory cholecalciferol (vitamin D3) 25 25 mcg PO QDAY 03/19/25 05/04/25 H istory mcg (1,000 unit) capsule potassium gluconate 595 mg (99 mg) 595 mg PO QDAY 03/19/25 05/04/25 History tablet carbidopa ER 50 mg-levodopa 200 mg 1 tab PO .QID #120 tabs 04/08/25 05/04/25 Rx tablet,extended release baclofen 10 mg tablet 10 mg PO BID muscle pain/muscle 05/04/25 Rx spasm #60 tabs buspirone 5 mg tablet 5 mg PO BID #60 tabs 05/02/2504/19 Rx nitrofurantoin 100 mg PO Q12H 5 days #10 caps 05/04/25 Rx monohydrate/macrocrystal s 100 mg capsule (Macrobid) Have you fallen in the past year?: No Nurse's Note: Frequent urination, worse at night, urgency, stomach pain, feet pain.X 3-4 days. PFSH Medical History Gait instability Weakness of right upper extremity Parkinson's disease Parkinson disease COVID-19 Acute bronchitis, unspecified Anemia Neck pain Shoulder pain Surgical History No history of previous surgery Family History Mother Non-Hodgkin lymphoma Father Alzheimer disease Sister Bone cancer CVA (cerebral vascular accident) Parkinsons disease Grandfather Myocardial infarction Grandfather Myocardial infarction Social History household members: spouse housing: house Smoking Status: Never smoker second hand exposure: No alcohol intake: current details: socially substance use type: does not use deshaun/scientology: Bahai seatbelt use: always HPI HPI Chief Complaint: UTI Details: ANTHONY CHAUDHARY, is a 69 F who presents to the office today for evaluation of urinary symptoms. Patient states that over the past 3-4 days she has been experiencing increased urinary frequency (primarily at night), urgency, and abdominal pain. Patient also notes discomfort in her legs and feet but is currently receiving treatment for neuropathy and Parkinson's. Patient states that her symptoms have remained persistent since onset. She denies history of frequent or recurrent UTIs. Patient's family present at the visit denies changes in mental/cognitive function since onset of symptoms. ROS Const Constitutional: No body ache, chills, fatigue or fever(s) Gastro GI: Positive for abdominal pain; No change in bowel habits, diarrhea or vomiting Genitourinary-Female: Positive for urinary frequency, urinary urgency and suprapubic fullness; No painful urination or blood in urine Endo Endocrine: No fatigue Exam Const General: healthy appearing and no acute distress GI Palpation: soft, no guarding and tender other (generalized tenderness throughout the abdomen) Other: No CVA tenderness bilaterally Results POC Urinalysis Dip (Clinic) Office Urine Color DARK YELLOW Last Edit by Kathy Hernandez MA on 05/04/25 10:59 Office Urine Clarity Cloudy Last Edit by Kathy Hernandez MA on 05/04/25 10:59 Office Urine Glucose Negative Last Edit by Kathy Hernandez MA on 05/04/25 10:59 Office Urine Ketones Large (80+) Last Edit by Kathy Hernandez MA on 05/04/25 10:59 Off Ur Spec [place] 1.030 Last Edit by Kathy Hernandez MA on 05/04/25 10:59 Office Urine pH Last Edit by Kathy Hernandez MA on 05/04/25 10:59 Office Urine Bilirubin Last Edit by Kathy Hernandez MA on 05/04/25 10:5 (more content not included)... Normal [facility] Neurology Visit Reporton Neurology Visit Report [employer] [facility] [address] [facility], [address] [place] [address] OFFICE VISIT Date of Service: 05/02/25 MR#: [id number] Acct: [id number] Name: ANTHONY CHAUDHARY Rep #: [id number] : 1955 Provider: Dr. Jac jaime MD Age/Sex: 69/F Location: [facility]. Status: Signed HPI [facility] Chief Complaint: Details: Interim History: Anthony returns for follow-up visit. She has Parkinson's disease; her parkinsonian symptoms began in 2021. She has had a tremor affecting the upper extremities and lower extremities. She has a feeling of stiffness in her arms and legs. She has had slowing and shuffling of her gait. The slowing of her gait had worsened over time. She has developed hypophonia and micrographia. She has experienced some postural instability. She had multiple falls. She has had freezing episodes that had occurred many times daily. She was started on ropinirole in 2021. She had some improvement of her handwriting following initiation of ropinirole otherwise she has not noticed significant improvement of her parkinsonian symptoms. Titrating her dose of ropinirole to 3 mg twice daily was not of clear added benefit. Ropinirole has not been of benefit for her freezing episodes. Azilect 0.5 mg daily was not of symptomatic benefit. Her tremor and feeling of rigidity worsened further. She has reduced her dose of ropinirole 3 mg to 1/2 tablet twice daily; no change in her parkinsonian symptoms has been noted. Carbidopa/levodopa 25/100 was initiated and was of benefit however the medication caused the side effect of rash. A different formulation, carbidopa/levodopa ER 25/100, was then initiated and this has been of benefit for her mobility and has been well-tolerated. Carbidopa/levodopa ER has not been of significant benefit for her tremor. She had some improvement of her mobility since increasing her dose of carbidopa/levodopa ER 25/100 however further increase of carbidopa/levodopa ER 25/100 to 2 tablets 4 times daily was not of added benefit. Carbidopa/levodopa 25/100 ER with switch to carbidopa/levodopa ER 50/200 1 tablet 4 times daily. She appears to be tolerating carbidopa/levodopa ER well. She is experiencing proximal and distal bilateral lower extremity pain. She denied having low back pain. EMG/nerve conduction studies of the lower extremities earlier in 2024 revealed prolonged H reflexes bilaterally otherwise the study was unremarkable. A skin biopsy to assess for small fiber polyneuropathy (2024) was normal. Venous ultrasound of the lower extremities performed earlier in 2024 did not reveal evidence of DVT. A lumbar MRI revealed multilevel degenerative joint/disc disease however no severe lumbar central canal or severe lumbar foraminal compromise was noted. Baclofen has been of some benefit for her pain (baclofen 30 mg nightly was over sedating) she is tolerating baclofen 10 mg nightly. Naproxen has been of some benefit for her pain however [id number] ibuprofen is more effective. Meloxicam was not of significant benefit. Flurbiprofen was not available at her pharmacy. She previously attended a physical therapy program for Parkinson's disease and this was of benefit. She reported having mild memory difficulty. No recent change in her memory has been reported. A B12 injection was not of benefit for her fatigue. She has a history of right plantar fasciitis and had used shoe orthotics and performed stretching exercises in the past. Her plantar fasciitis resolved and she no longer uses shoe orthotics. She has a history of iron deficiency. Her last serum iron (earlier in 2024) was normal. She has had panic attacks and crying episodes. She takes Celexa 10 mg nightly for depression. A trial of Folinic Plus was not of benefit for her lower extremity pain. Prior history: She initially presented in October 2021 for evaluation of right lower extremity weakness. While horseback riding in 2020, she noticed having difficulty everting the right foot. Earlier in 2020, she had right calf cramping for which she was treated with a methylprednisolone taper and cyclobenzaprine and this resolved. Her right foot weakness improved over time and subsequently resolved. She did not have radicular pain in the right lower extremity at that time. She had mild occasional low back pain in the past. At that time, she denied having numbness, weakness or pain in the arms or left lower extremity. She has some numbness in the right foot. 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 Normal [facility] Neurology Visit Reporton Neurology Visit Report [employer] [facility] [employer] [facility] [address] [facility], [address] [place] [address] OFFICE VISIT Date of Service: 04/08/25 MR#: [id number] Acct: [id number] Name: ANTHONY CHAUDHARY Rep #: [id number] : 1955 Provider: Dr. Jac jaime MD Age/Sex: 69/F Location: [facility] Status: Signed [facility] Chief Complaint: Details: Interim History: Anthony returns for follow-up visit. She has Parkinson's disease. In 2021, she developed symptoms consistent with Parkinson's disease. She has had a tremor affecting the upper extremities and lower extremities. She has feeling of stiffness in her arms and legs. She has had slowing and shuffling of her gait. The slowing of her gait had worsened over time. She has developed hypophonia and micrographia. She has experienced some postural instability. She had multiple falls. She has had freezing episodes that had occurred many times daily. She was started on ropinirole in 2021; she typically had forgotten to take a midday dose of ropinirole. She had some improvement of her handwriting following initiation of ropinirole otherwise she has not noticed significant improvement of her parkinsonian symptoms. Titrating her dose of ropinirole from 1 mg twice daily to 3 mg twice daily was not of clear added benefit. Ropinirole has not been of benefit for her freezing episodes. Azilect 0.5 mg daily was not of symptomatic benefit. Her tremor and feeling of rigidity worsened further. Carbidopa/levodopa 25/100 was initiated and was of benefit however she developed a rash as a side effect to this medication. Carbidopa/levodopa 25/100 was discontinued and the rash resolved. A different formulation, carbidopa/levodopa ER 25/100, was then initiated and this has been of benefit for her mobility and has been well-tolerated. Carbidopa/levodopa ER has not been of significant benefit for her tremor. She had some improvement of her mobility since increasing her dose of carbidopa/levodopa ER 25/100 however further increase of carbidopa/levodopa ER 25/100 2 tablets 4 times daily was not of added benefit and carbidopa/levodopa 25/100 ER with switch to carbidopa/levodopa ER 50/201 tablet 4 times daily. She appears to be tolerating carbidopa/levodopa ER well. She is experiencing predominantly proximal bilateral lower extremity vague muscle pain. She denied having low back pain. EMG/nerve conduction studies of the lower extremities earlier in 2024 revealed prolonged H reflexes bilaterally otherwise the study was unremarkable. A skin biopsy to assess for small fiber polyneuropathy performed earlier in 2024 was normal. Venous ultrasound of the lower extremities performed earlier in 2024 did not reveal evidence of DVT. A lumbar MRI was performed which reveals multilevel degenerative joint/disc disease however no severe lumbar central canal or severe lumbar foraminal compromise was noted. Baclofen has been of some benefit for her pain (baclofen 30 mg nightly was over sedating) she is tolerating baclofen 10 mg nightly. Naproxen has been of some benefit for her pain however [id number] ibuprofen is more effective. Meloxicam was not of significant benefit. Flurbiprofen was not available at her pharmacy. She previously attended a physical therapy program for Parkinson's disease and this was of benefit. She reported having mild memory difficulty. She has not had any recent change in her memory. A B12 injection was not of benefit for her fatigue. She has a history of right plantar fasciitis and had used shoe orthotics and performed stretching exercises in the past. Her plantar fasciitis resolved and she no longer uses shoe orthotics. She has a history of iron deficiency. Her last serum iron (earlier in 2024) was normal. Prior history: She initially presented in October 2021 for evaluation of right lower extremity weakness. While horseback riding in 2020, she noticed having difficulty everting the right foot. Earlier in 2020, she had right calf cramping for which she was treated with a methylprednisolone taper and cyclobenzaprine and this resolved. Her right foot weakness improved over time and subsequently resolved. She did not have radicular pain in the right lower extremity at that time. She had mild occasional low back pain in the past. At that time, she denied having numbness, weakness or pain in the arms or left lower extremity. She has some numbness in the right foot. 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 An right lower extremity EMG/nerve conduction study (06/2021) revealed findings suggestive of a partial peroneal neuropathy versus L5 radiculopathy with decreased amplitude of the right peroneal motor nerve, normal peroneal nerve conduction velocity and denervation of the right tibialis anterior muscle and extensor hallucis longus muscle; no sensory nerve abnormality was noted; no paraspinal denervation was (more content not included)... Normal [facility] Breast imaging reportOrdered By: Alexandra Mcfadden on 04-05-2025 Study report [facility] Imaging Services [address] [place], [place] [id number] SCRN MAMM (CAD)W/ROSEANNE BILAT MR#: [id number] Acct: [id number] Name: ANTHONY CHAUDHARY Conner Rep #: [id number] : 1955 F 69 From: Topher Mendez MD PCP: Dr. Eleanor Armstrong, DO Status: RE G CLI Study:SCRN MAMM (CAD)W/ROSEANNE BILAT Date of Exa m: 04/05/25 Exam# [id number] Ordering Dr: Conner Armstrong DO EXAM: SCRN MAMM (CAD)W/ROSEANNE BILAT DATE: 04/05/2025 CLINICAL HISTORY: F, Age 69 y/o , ENCOUNTER FOR SCREENING MAMMOGRAM FOR MALIGNANT NEOPLASM OF BREAS TECHNIQUE: SCRN MAMM (CAD)W/ROSEANNE BILAT COMPARISON: None available FINDINGS: TISSUE DENSITY: The breasts are heterogeneously dense, which may obscure small masses. Bilateral Breast Mammographic Findings: No suspicious masses, calcifications or other abnormalities are identified. BI/SCRN MAMM (CAD)W/ROSEANNE BILAT IMPRESSION: No mammographic evidence of malignancy in either breast OVERALL FINAL ASSESSMENT BI-RADS 1: NEGATIVE. RECOMMENDATION: Routine annual follow-up in 1 Year A letter with findings and recommendations will be mailed to the patient. Reading Location: [id number] CC: Dr. Eleanor Armstrong DO ~ Fire Operations Forester: Signed [facility] SCRN MAMM (CAD)W/ROSEANNE BILATo n 04-05-2025 SCRN MAMM (CAD)W/ROSEANNE BILAT [facility] Imaging Services [address] [place], [place] [address] SCRN MAMM (CAD)W/ROSEANNE BILAT MR#: [id number] Acct: [id number] Name: ANTHONY CHAUDHARY Rep #: [id number] : 1955 F 69 From: Alexandra Jackson i, MD PCP: Dr. Eleanor Armstrong DO Status: REG CLI Study: SCRN MAMM (CAD)W/ROSEANNE BILAT Date of Exam: 03/19 05/13 Exam# [id number] Ordering Dr: Eleanor Armstrong DO EXAM: SCRN MAMM (CAD)W/ROSEANNE BILAT DATE: 04/05/2025 CLINICAL HISTORY: F, Age 69 y/o , ENCOUNTER FOR SCREENING MAMMOGRAM FOR MALIGNANT NEOPLASM OF BREAS TECHNIQUE: SCRN MAMM (CAD)W/ROSEANNE BILAT COMPARISON: None available FINDINGS: TISSUE DENSITY: The breasts are heterogeneously dense, which may obscure small masses. Bilateral Breast Mammographic Findings: No suspicious masses, calcifications or other abnormalities are identified. BI/SCRN MAMM (CAD)W/ROSEANNE BILAT IMPRESSION: No mammographic evidence of malignancy in either breast OVERALL FINAL ASSESSMENT BI-RADS 1: NEGATIVE. RECOMMENDATION: Routine annual follow-up in 1 Year A letter with findings and recommendations will be mailed to the patient. Reading Location: [id number] CC: Dr. Eleanor Armstrong DO Fire Operations Forester: Signed Normal [facility] Neurology Visit Reporton Neurology Visit Report [employer] [facility] [address] [facility], [address] [place] [address] OFFICE VISIT Date of Service: 03/19/25 MR#: [id number] Acct: [id number] Name: ANTHONY CHAUDHARY Rep #: [id number] : 1955 Provider: Dr. Jac jaime MD Age/Sex: 69/F Location: [facility]. Status: Signed HPI HPI Chief Complaint: Details: Interim History: Anthony returns for follow-up visit. She has Parkinson's disease. She initially presented for evaluation of right lower extremity weakness. While horseback riding in 2020, she noticed having difficulty everting the right foot. Earlier in 2020, she had right calf cramping for which she was treated with a methylprednisolone taper and cyclobenzaprine and this resolved. Her right foot weakness improved over time and subsequently resolved. She did not have radicular pain in the right lower extremity at that time. She had mild occasional low back pain in the past. At that time, she denied having numbness, weakness or pain in the arms or left lower extremity. She has some numbness in the right foot. 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 A lumbar MRI (08/2021) revealed multilevel degenerative disc and joint changes which, per her orthopedic surgery note, was most pronounced at L5-S1 causing mild bilateral foraminal narrowing at this level. A right L5-S1 epidural steroid injection in September 2021 was not of benefit. She was involved in horseback riding and at one point was riding daily, though in summer 2020, she reduced her riding time and later stopped riding horses. As part of her riding gear, she had worn a half chap, which produced pressure in the posterior fibular head region. She also had frequently crossed her legs when seated, and has made an effort to avoid this position. 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 A vitamin B12, folate, TSH, thiamine, CMP, and ESR were unremarkable. Her serum free light chains were mildly abnormal.??? In 2021, she developed symptoms consistent with Parkinson's disease. She has had a tremor affecting the upper extremities and lower extremities. She has noticed a feeling of stiffness in her arms and legs. She has had slowing and shuffling of her gait. The slowing of her gait had worsened over time. She has developed hypophonia and micrographia. She has experienced some postural instability. She had multiple falls. She has had freezing episodes that had occurred many times daily. She was started on ropinirole in 2021; she typically had forgotten to take a midday dose of ropinirole. She had some improvement of her handwriting following initiation of ropinirole otherwise she did not notice any significant improvement of her parkinsonian symptoms. Titrating her dose of ropinirole from 1 mg twice daily to 3 mg twice daily was not of clear added benefit. Ropinirole has not been of benefit for her freezing episodes. Azilect 0.5 mg daily was not of symptomatic benefit. Her tremor and feeling of rigidity worsened further. Carbidopa/levodopa 25/100 was initiated and was of benefit however she developed a rash as a side effect to this medication. Carbidopa/levodopa 25/100 was discontinued and the rash resolved. A different formulation, carbidopa/levodopa ER 25/100, was then initiated and this has been of benefit for her mobility and has been well-tolerated. Carbidopa/levodopa ER has not been of significant benefit for her tremor. She has had improvement of her mobility since increasing her dose of carbidopa/levodopa ER 25/100. She currently takes carbidopa ER 25/100 2 tablets 4 times daily; she has not noted further improvement of her symptoms with her last increase of this medication to her current dose. She has tolerated carbidopa/levodopa ER well. She is experiencing predominantly proximal bilateral lower extremity vague muscle pain. EMG/nerve conduction studies of the lower extremities earlier in 2024 revealed prolonged H reflexes bilaterally otherwise the study was unremarkable. A skin biopsy to assess for small fiber polyneuropathy performed earlier in 2024 was normal. Venous ultrasound of the lower extremities performed earlier i (more content not included)... Normal [facility] Magnetic resonance imaging r eportOrdered By: Xavier Borrero on 03-12-2025 Study report [facility] Imaging Services [address] [place] [address] Spine Lumbar (Routine) MR#: [id number] Acct: [id number] Name: ANTHONY CHAUDHARY Rep #: [id number] : 1955 F 69 From: Mario Alberto Borrero MD PCP: Dr. Eleanor Armstrong, DO Status: RE G CLI Study:Spine Lumbar (Routine) Date of Exam: 03/11/25 Exam# [id number] Ordering Dr: Jac Truong MD PROCEDURE: SPINE LUMBAR (ROUTINE) 03/11/2025 REASON FOR EXAM: RIGHT LUMBAR RADICULOPATHY TECHNIQUE: SPINE LUMBAR (ROUTINE) Post gadolinium images were obtained. 12 cc of Clariscan were injected intravenously. COMPARISON: None. FINDINGS: Moderate diffuse spondylosis. Moderate multilevel degenerative disc disease. Moderate chronic changes of Baastrup's disease. There is normal signal intensity from the visualized bone marrow without evidence of replacement or acute fracture. The conus is unremarkable. Mildly exaggerated lumbar lordosis. Evaluation of the individual levels revealed the following: L5-S1: There is grade 1 retrolisthesis measuring 4.2 mm. Mild diffuse disc bulge. Superimposed broad-based left posterolateral/foraminal disc protrusion measuring 5.3 mm. The spinal canal is not narrowed. There is mild right and moderate left neural foramina narrowing. L4-5: There is mild diffuse disc bulge. Superimposed broad-based left foraminaldisc protrusion measuring 3.4 mm. Bilateral facet joint arthropathy and ligamentum flavum hypertrophy. The spinal canal is not narrowed. There is mild right and moderate left neural foramina narrowing. L3-4: There is mild diffuse disc bulge. Superimposed broad-based left posterolateral disc protrusion measuring 3.3 mm. Bilateral facet joint arthropathy and ligamentum flavum hypertrophy. The spinalcanal is mildly narrowed. There is mild bilateral neural foramina narrowing. L2-3: There is mild diffuse disc bulge. Bilateral facet joint arthropathy and ligamentum flavum hypertrophy. The spinal canal is not narrowed. There is mild bilateral neural foramina narrowing. L1-2: There is mild diffuse disc bulge. Bilateral facet joint arthropathy and ligamentum flavum hypertrophy. The spinal canal is not narrowed. There is mild bilateral neural foramina narrowing. Normal visualized paraspinous soft tissue structures. No abnormal postcontrast enhancement is noted. MRI/Spine Lumbar (Routine) IMPRESSION: Spondylosis. Degenerative disc disease. Reading Location: [place] [address] CC: Dr. Eleanor Armstrong DO; Dr. Jac Truong MD ~ Fire Operations Forester: Signed [facility] Spine Lumbar (Routine)on Spine Lumbar (Routine) [facility] Imaging Services [address] [place] [address] Spine Lumbar (Routine) MR#: [id number] Acct: [id number] Name: ANTHONY CHAUDHARY Rep #: [id number] : 1955 F 69 From: Xavier tapia MD PCP: Dr. Eleanor Armstrong DO Status: REG CLI Study: Spine Lumbar (Routine) Date of Exam: 03/11/25 Exam# [id number] Ordering Dr: Jac Truong MD PROCEDURE: SPINE LUMBAR (ROUTINE) 03/11/2025 REASON FOR EXAM: RIGHT LUMBAR RADICULOPATHY TECHNIQUE: SPINE LUMBAR (ROUTINE) Post gadolinium images were obtained. 12 cc of Clariscan were injected intravenously. COMPARISON: None. FINDINGS: Moderate diffuse spondylosis. Moderate multilevel degenerative disc disease. Moderate chronic changes of Baastrup's disease. There is normal signal intensity from the visualized bone marrow without evidence of replacement or acute fracture. The conus is unremarkable. Mildly exaggerated lumbar lordosis. Evaluation of the individual levels revealed the following: L5-S1: There is grade 1 retrolisthesis measuring 4.2 mm. Mild diffuse disc bulge. Superimposed broad-based left posterolateral/foraminal disc protrusion measuring 5.3 mm. The spinal canal is not narrowed. There is mild right and moderate left neural foramina narrowing. L4-5: There is mild diffuse disc bulge. Superimposed broad-based left foraminal disc protrusion measuring 3.4 mm. Bilateral facet joint arthropathy and ligamentum flavum hypertrophy. The spinal canal is not narrowed. There is mild right and moderate left neural foramina narrowing. L3-4: There is mild diffuse disc bulge. Superimposed broad-based left posterolateral disc protrusion measuring 3.3 mm. Bilateral facet joint arthropathy and ligamentum flavum hypertrophy. The spinal canal is mildly narrowed. There is mild bilateral neural foramina narrowing. L2-3: There is mild diffuse disc bulge. Bilateral facet joint arthropathy and ligamentum flavum hypertrophy. The spinal canal is not narrowed. There is mild bilateral neural foramina narrowing. L1-2: There is mild diffuse disc bulge. Bilateral facet joint arthropathy and ligamentum flavum hypertrophy. The spinal canal is not narrowed. There is mild bilateral neural foramina narrowing. Normal visualized paraspinous soft tissue structures. No abnormal postcontrast enhancement is noted. MRI/Spine Lumbar (Routine) IMPRESSION: Spondylosis. Degenerative disc disease. [facility] CC: Dr. Eleanor Armstrong DO; Dr. Jac Truong MD Fire Operations Forester: Signed Normal [facility] Venous Duplex US, Unilateral on 03-11-2025 Venous Duplex US, Unilateral [facility] Cardi[facility] Services [address] [place] [address] Venous Duplex US, Unilateral 03/11/25 0927 MR#: [id number] Acct: [id number] Name: ANTHONY CHAUDHARY Rep #: [id number] : 1955 69 From: Harris Keating MD Attending Dr: Dr. Jac Truong MD Status: R [facility] Ordering Dr: Jac Truong MD Date: 03/11/25 Location: MRI Sex: F C Admitted: Reason For Study Reason For Study: Rt Leg Pain RIGHT LEFT GSV is normal. CFV is compressible, spontaneous, phasic, competent, CFV is compressible, spontaneous, phasic, competent and demonstrates normal augmentation. and demonstrates normal augmentation. FV is compressible, spontaneous, phasic, competent and demonstrates normal augmentation. POP V is compressible, spontaneous, phasic, competent and demonstrates normal augmentation. T/P Trunk is compressible. PTV is compressible. RT PerV is compressible. Procedure This is a venous duplex using B-mode, color flow and spectral Doppler. Exam performed in department. A preliminary report was called and/or faxed to Dr. Truong. VL/Venous Duplex US, Unilateral Interpretation Summary Deep veins of the right lower extremity are patent and compressible segmentally. There is no evidence of right lower extremity deep vein thrombosis. Valvular competence appears intact within the proximal deep venous system on the right . The right great saphenous vein appears patent and compressible segmentally. The left common femoral vein is patent and compressible . Ordering Physician: Jac Truong Referring Physician: Eleanor Armstrong Performed By: Fani Sharpe, LENYCS, RVT 03/11/252227 Date Harris Keating MD CC: Dr. Eleanor Armstrong DO; Dr. Jac Truong MD Date Dictated: 03/11/25926 Date Transcribed: 03/11/252227 Fire Operations Forester: Signed Normal [facility] Venous duplex ultrasound rep ortOrdered By: Harris Keating on 03-11-2025 US Vein [facility] Cardiovascular Services [address] [place] [address] Venous Duplex US, Unilateral 03/11/25926 MR#: [id number] Acct: [id number] Name: ANTHONY CHAUDHARY Rep #:[id number] : 1955 69 From: Harris Keating MD Attending Dr: Dr. Jac Truong MD Status: REG CLI Ordering Dr: Jac Truong MD Date: 03/11/25 Location: MRI Sex: F C Admitted: Reason For Study Reason For Study: Rt Leg Pain RIGHT LEFT GSV is normal. CFV is compressible, spontaneous, phasic, competent, CFV is compressible, spontaneous, phasic, competent and demonstrates normal augmentation. and demonstrates normal augmentation. FV is compressible, spontaneous, phasic, competent and demonstrates normal augmentation. POP V is compressible, spontaneous, phasic, competent and demonstrates normal augmentation. T/P Trunk is compressible. PTV is compressible. RT PerV is compressible. Procedure This is a venous duplex using B-mode, color flow and spectral Doppler. Exam performed in department. A preliminary report was called and/or faxed to Dr. Truong. VL/Venous Duplex US, Unilateral Interpretation Summary Deep veins of the right lower extremity are patent and compressible segmentally.There is no evidence of right lower extremity deep vein thrombosis. Valvular competence appears intact within the proximal deep venous system on the right . The right great saphenous vein appears patent and compressible segmentally. The left common femoral vein is patent and compressible . Ordering Physician: Jac Truong Referring Physician: Eleanor Armstrong Performed By: Fani Sharpe, LENYCS, RVT 03/11/252227 Date _ Harris Keating MD CC: Dr. Eleanor Armstrong DO; Dr. Jac Truong MD ~ Date Dictated: 03/11/25926 Date Transcribed: 03/11/252227 Fire Operations Forester: Signed [facility] Other Neurology Visit Reporton Neurology Visit Report [employer] [facility] [address] [facility], [address] [place] [address] OFFICE VISIT Date of Service: 02/21/25 MR#: [id number] Acct: [id number] Name: ANTHONY CHAUDHARY Rep #: [id number] : 1955 Provider: Dr. Jac jaime MD Age/Sex: 69/F Location: [facility]. Status: Signed HPI HPI Chief Complaint: Skin Biopsy Informed consent given: Yes Consent signed: Yes Type of biopsy: punch Office Procedures Neurology POC Punch Biopsy: Yes Details:: Procedure note: Skin punch biopsy of right lower extremity to assess for polyneuropathy. The patient has bilateral lower extremity pain that is worse on the right. EMG/nerve conduction studies of the lower extremities revealed prolonged H reflexes bilaterally otherwise the study was unremarkable. The possibility of a small fiber polyneuropathy is raised. Written informed consent was obtained. Physical exam: Neuro: The patient is awake and alert Extremities: No cyanosis or edema is noted in the right lower extremity The right lower extremity biopsy sites were prepped with alcohol and povidone iodine swabs. The dorsal right foot and right calf (10 cm proximal to the lateral malleolus laterally) injection sites were infiltrated with 0.5% lidocaine with epinephrine. Right dorsal foot and right lateral calf (10 cm proximal to the lateral malleolus) skin biopsies were obtained. The biopsy sites were bandaged. The patient tolerated the procedure well. There were no complications. Assessment and Plan Assessment and Plan (1) Encounter for procedure: (2) Polyneuropathy: Status: Acute (3) Leg pain, bilateral: Status: Acute Orders: Orders Neurology POC Today G62.9 - Polyneuropathy, unspecified, M79.604 - Pain in right leg, M79.605 - Pain in left leg Intake Vital Signs 01/28/25 11:29 02/15/25 13:58 02/21/25 10:30 Height 5 ft 5 in 5 ft 5 in Weight: 120 lb 6 oz BP 138/76 H Blood Pressure Location Lt brachial Position Sitting Respiration 17 Pulse 65 Pulse Source Monitor Temp 98.2 F Temp Source Temporal Pulse Oximetry (%) 98 Oxygen Delivery Method room air Intake Visit Reasons: Skin biopsy 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 Accompanied by: Allergies No Known Allergies Allergy (Verified 02/21/25 10:36) Have you fallen in the past year?: Yes PFSH Medical History Parkinson disease COVID-19 Acute bronchitis, unspecified Anemia Neck pain Shoulder pain Surgical History No history of previous surgery Family History Mother Non-Hodgkin lymphoma Father Alzheimer disease Sister Bone cancer CVA (cerebral vascular accident) Parkinsons disease Grandfather Myocardial infarction Grandfather Myocardial infarction Social History household members: spouse housing: house Smoking Status: Never smoker second hand exposure: No alcohol intake: current details: socially substance use type: does not use deshaun/scientology: Bahai seatbelt use: always Clinical Quality Measures Falls Risk Screening/Assistive Devices Have you fallen in the past year?: Yes Coding Level of Care Code Attention Cycle Counter Diagnoses Encounter for procedure Polyneuropathy G62.9 Leg pain, bilateral M79.604; M79.605 CPT Codes Punch Biopsy - Punch Biopsy: Yes (TGBXSKIN) Comment Skin biopsies x 2 02/21/25 1316 Date Jac Monzon Signature: Date (if applicable) CC: Normal [facility] Absolute lymphocyte countOrd ered By: Jeseloy Ortiz on 02-16-2025 Lymphocytes Auto (Unsp spec) [#/Vol] 1.30 10*3/uL 0.83-4.51 [facility] Absolute neutrophil countOrd ered By: [facility] 02-16-2025 Neutrophils (Bld) [#/Vol] 2.4 10*3/uL 2.0-7.7 [facility] Anion gap in Serum or Plasma Ordered By: Jes Ortiz on 02-16-2025 Anion gap [Moles/Vol] 10 mmol/L 5-15 [facility] Automated lymphocyte count a s percentage of total leukocytesOrdered By: Jes Ortiz on 02-16-2025 Lymphocytes/100 WBC Auto (Unsp spec) 28.8 % - [facility] BUN/creatinine ratioOrdered By: Jeseloy Ortiz on 02-16-2025 Urea nitrogen/Creatinine [Mass ratio] 40.2 mg/mg High 10- [facility] Basic Metabolic Profile (BMP )on 02-16-2025 BUN/CRE 40.2 RATIO High 07-08 [facility] Comment on above: Performed By: #### L 501.080 #### [facility] [address] [place], [place], [id number] Calcium [Mass/Vol] 9.4 mg/dL Normal 7.6-11.0 [facility] Comment on above: Performed By: #### L 501.080 #### [facility] [address] [place], [address] Chloride [Moles/Vol] 105 mmol/L Normal 98-108 [facility] Comment on above: Performed By: #### L 501.080 #### [facility] [address] [place], [address] CO2 [Moles/Vol] 22.5 mmol/L Normal 21.0-32.0 [facility] Comment on above: Performed By: #### L 501.080 #### [facility] [address] [place], [address] Creatinine [Mass/Vol] 0.60 mg/dL Low 0.70-1.20 [facility] Comment on above: Performed By: #### L 501.080 #### [facility] [address] [place], [address] ECRCL 55.49 ml/min Normal 50-250 [facility] Comment on above: Performed By: #### L 501.080 #### [facility] [address] [place], [address] GAP 10 Normal 5-15 [facility] Comment on above: Performed By: #### L 501.080 #### [facility] [address] [place], [address] GFR/1.73 sq M.predicted among non-blacks MDRD (S/P/Bld) [Vol rate/Area] 96 mL/min/{1.73_m2} Normal >60 [facility] Comment on above: Result Comment: mL/m in/1.73m2 CKD-EPI Creatinine Equation (2020) Performed By: #### L 501.080 #### [facility] [address] [place], [address] Glucose [Mass/Vol] 110 mg/dL High 70-99 [facility] Comment on above: Performed By: #### L 501.080 #### [facility] [address] [place], [address] Potassium [Moles/Vol] 3.7 mmol/L Normal 3.3-5.1 [facility] Comment on above: Performed By: #### L 501.080 #### [facility] [address] [place], [address] Sodium [Moles/Vol] 138 mmol/L Normal 133-145 [facility] Comment on above: Performed By: #### L 501.080 #### [facility] [address] [place], [address] Urea nitrogen [Mass/Vol] 24 mg/dL High 4-19 [facility] Comment on above: Performed By: #### L 501.080 #### [facility] [address] [place], [address] Basophil percentageOrdered B y: Jes Ortiz on 02-16-2025 Basophils/100 WBC (Bld) 0.9 % 0-1 [facility] CBC W/Diff, Automatedon 01-19 Absolute Lymph 1.30 X10 3/uL Normal 0.83-4.51 [facility] Comment on above: Performed By: #### L 501.080 #### [facility] [address] [place], [address] Absolute Neut 2.4 X10 3/uL Normal 2.0-7.7 [facility] Comment on above: Performed By: #### L 501.080 #### [facility] [address] [place], [address] Basophils/100 WBC (Bld) 0.9 % Normal 0-1 [facility] Comment on above: Performed By: #### L 501.080 #### [facility] [address] [place], [address] Eosinophils/100 WBC (Bld) 4.6 % Normal 0-5 [facility] Comment on above: Performed By: #### L 501.080 #### [facility] [address] [place], [address] Erythrocyte distribution width (RBC) [Ratio] 12.9 % Normal 11.6-14.6 [facility] Comment on above: Performed By: #### L 501.080 #### [facility] [address] [place], [address] Hematocrit (Bld) [Volume fraction] 36.3 % Low 37-47 [facility] Comment on above: Performed By: #### L 501.080 #### [facility] [address] [place], [address] Hemoglobin (Bld) [Mass/Vol] 12.2 g/dL Normal 12.0-15.0 [facility] Comment on above: Performed By: #### L 501.080 #### [facility] [address] [place], [address] IG% 0.000 Normal 0.0-0.9 [facility] Comment on above: Result Comment: IG% - Immature Granulocytes (promyelocytes, myelocytes and metamyelocytes) > 1% indicates that a LEFT SHIFT is Present. Performed By: #### L 501.080 #### [facility] [address] [place], [address] Lymphocytes/100 WBC (Bld) 28.8 % Normal 19-41 [facility] Comment on above: Performed By: #### L 501.080 #### [facility] [address] [place], [address] MCH (RBC) [Entitic mass] 32.6 pg High 27.0-32.0 [facility] Comment on above: Performed By: #### L 501.080 #### [facility] [address] [place], [address] MCHC (RBC) [Mass/Vol] 33.6 g/dL Normal 32-36 [facility] Comment on above: Performed By: #### L 501.080 #### [facility] [address] [place], [address] MCV (RBC) [Entitic vol] 97.1 fL Normal 81-99 [facility] Comment on above: Performed By: #### L 501.080 #### [facility] [address] [place], [address] Monocytes/100 WBC (Bld) 11.9 % High 0-10 [facility] Comment on above: Performed By: #### L 501.080 #### [facility] [address] [place], [address] Neutrophils/100 WBC (Bld) 53.8 % Normal 47-70 [facility] Comment on above: Performed By: #### L 501.080 #### [facility] [address] [place], [address] Nucleated RBC (Bld) [#/Vol] 0 10*3/uL Normal 0-5 [facility] Comment on above: Performed By: #### L 501.080 #### [facility] [address] [place], [address] Platelet mean volume (Bld) [Entitic vol] 10.2 fL Normal 6.2-12.0 [facility] Comment on above: Performed By: #### L 501.080 #### [facility] [address] [place], [address] Platelets (Bld) [#/Vol] 199 10*3/uL Normal 150-450 [facility] Comment on above: Performed By: #### L 501.080 #### [facility] [address] [place], [address] RBC (Bld) [#/Vol] 3.74 10*6/uL Low 4.2-5.[address] [facility] Comment on above: Performed By: #### L 501.080 #### [facility] [address] [place], [address] RDW SD 46.5 fl High 35.1-43.9 [facility] Comment on above: Performed By: #### L 501.080 #### [facility] [address] [place], [address] WBC (Bld) [#/Vol] 4.5 10*3/uL Normal 4.4-11.0 [facility] Comment on above: Performed By: #### L 501.080 #### [facility] [address] [facility] [place], [address] Carbon dioxide, total [Moles /volume] in Central venous bloodOrdered By: Jes Diana on 02-16-2025 CO2 [Moles/Vol] 22.5 mmol/L 21.0-32.0 [facility] Chloride assayOrdered By: Na na Diana on 02-16-2025 Chloride [Moles/Vol] 105 mmol/L 98-108 [facility] Discharge Instructionon 01-19 Discharge Instruction [facility] Medical Records Department [address] [place] [address] Instructions for Home/Discharge Instructions 02/16/25 1100 MR#: [id number] Acct: [id number] Name: ANTHONY CHAUDHARY Rep #: [id number] : 1955 69 From: Eliel Reeves MD PCP: Dr. Eleanor Armstrong, DO Status:ADM MONICA Discharge Instructions Diet Discharge Diet: No restrictions DC O2, CPAP, BIPAP needs Home O2 Discharge instructions: No Dressing / Incision Discharge Activity: Return to Normal Activity Weight Bearing Status: Weight bearing as tolerated Dressing / Incision Call your doctor if you observe: Fever of 101 or Higher, Coldness, Increased Pain, Numbness or Tingling, Change in Color, Inability to urinate, Inability to have a bowel movement, Shortness of breath, Dizziness, Fainting spells, Swelling in the ankles, Chest pain, Prolonged hiccupping, Increased palpitations (irregular heartbeat) and Calf discomfort Follow Up Care When: IN 2 WEEKS Test Results: Test results from this visit will be discussed in further detail at your follow-up appointment, if applicable. Discharge Plan Admission Admit Date/Time: 02/15/25 04:28 Attending Provider: Eliel Reeves Primary Care Provider: Eleanor Armstrong Consulting Providers: Sheng Galvin; Hansa Pepper; Karen Perkins; Mirna Lira; Joselyn De Guzamn; Deo Duran; Danyell Mg; Zaki Costa; Jim Kingsley; Esteban Jernigan; Leilani Zapata; Coleman Lakhani; Tisha Novoa; Rob Nguyen; Kathe Weathers; Joe Block; Chrissie Egan; Bjorn Lockhart; Trinh Viveros; Echo Castro; Marvin Becerril; Jes Ortiz Discharge Orders/Prescriptions Prescriptions: New carbidopa-levodopa 50-200 mg Tablet Extended Release 1 tab PO 5X/DAY 30 Days Qty: 150 0RF atorvastatin [Lipitor] 40 mg tablet 40 mg PO QHS 30 Days Qty: 30 2RF Continued magnesium 200 mg tablet 200 mg PO DAILY omega-3 fatty acids 1,000 mg capsule 1,000 mg PO DAILY coenzyme Q10 30 mg capsule 30 mg PO DAILY citalopram [Celexa] 10 mg tablet 10 mg PO DAILY naproxen 500 mg tablet 500 mg PO BID PRN (Reason: pain) Qty: 60 3RF ropinirole 3 mg tablet 3 mg PO BID Qty: 60 6RF baclofen 10 mg tablet See Rx Instructions .ROUTE .COMPLEX Qty: 180 4RF Rx Instructions: Take 1 tablet orally 3 times daily and 3 tablets nightly multivitamin [Daily Multi-Vitamin] Tablet 1 tab PO DAILY Discontinued carbidopa-levodopa 25-100 mg tablet extended release 2 tab PO .QID Qty: 240 3RF Referrals / Follow Up: Eleanor Armstrong, [Primary Care Provider] - Disposition Disposition (needs filled in before D/C Order can be placed): Home, Self Care 02/16/25 1105 Eliel Reeves MD CC: Mirna Lira; Tisha Novoa; Joe Block; Joselyn De Guzman MD; Karen Perkins MD; Sheng Galvin MD; Dr. Hansa Pepper MD; Dr. Deo Duran MD; Dr. Danyell Mg MD; Dr. Jim Kingsley MD; Dr. Zaki Costa MD; Dr. Esteban Jernigan MD; Dr. Eleanor Armstrong DO; Dr. Coleman Lakhani DO; Dr. Kathe Weathers MD; Dr. Rob Nguyen MD; Dr. Jes Ortiz MD; Dr. Marvin Becerril MD; Dr. Chrissie Egan MD; Dr. Bjorn Lockhart MD; Dr. Trinh Viveros MD; Leilani Zapata DO; Echo Castro MD Signed Normal [facility] Eosinophil percentageOrdered By: Jes Ortiz on 02-16-2025 Eosinophils/100 WBC (Bld) 4.6 % 0-5 [facility] Erythrocyte distribution wid th ratioOrdered By: Jeseloy Ortiz on 02-16-2025 Erythrocyte distribution width (RBC) [Ratio] 12.9 % 11.6-14.6 [facility] Erythrocyte distribution wid th standard deviationOrdered By: Jeseloy Ortiz on 02-16-2025 Erythrocyte distribution width (RBC) [Ratio] 46.5 fl High 35.1-43.9 [facility] Glomerular filtration rate ( GFR) estimation/1.73 sq m using serum, plasma, or whole bOrdered By: Jes Ortiz on 02-16-2025 GFR/1.73 sq M.predicted among non-blacks MDRD (S/P/Bld) [Vol rate/Area] 96 mL/min/{1.73_m2} >60 [facility] Comment on above: mL/min/1.73m2 CKD-EP I Creatinine Equation (2020) Hematocrit Auto (Bld) [Volum e fraction]Ordered By: Jes Ortiz on 02-16-2025 Hematocrit (Bld) [Volume fraction] 36.3 % Low 37-47 [facility] Hemoglobin measurementOrdere d By: Jes Ortiz on 02-16-2025 Hemoglobin (Bld) [Mass/Vol] 12.2 g/dL 12.0-15.0 [facility] Immature granulocytes/100 WB C Auto (Bld)Ordered By: Jes Ortiz on 02-16-2025 Immature granulocytes/100 WBC (Bld) 0.000 % 0.0-0.9 [facility] Comment on above: IG% - Immature Granu locytes (promyelocytes, myelocytes and metamyelocytes) > 1% indicates that a LEFT SHIFT is Present. MCV (mean corpuscular volume ) determinationOrdered By: Jes Ortiz on 02-16-2025 MCV (RBC) [Entitic vol] 97.1 fL 81-99 [facility] Mean corpuscular hemoglobin (MCH) determinationOrdered By: Jeseloy Ortiz on 02-16-2025 MCH (RBC) [Entitic mass] 32.6 pg High 27.0-32.0 [facility] Mean corpuscular hemoglobin concentration (MCHC) determinationOrdered By: Jes Ortiz on 02-16-2025 MCHC (RBC) [Mass/Vol] 33.6 g/dL 32-36 [facility] Mean platelet volume determi nationOrdered By: Jes Ortiz on 02-16-2025 Platelet mean volume (Bld) [Entitic vol] 10.2 fL 6.2-12.0 [facility] Monocyte percentageOrdered B y: Jes Ortiz on 02-16-2025 Monocytes/100 WBC (Bld) 11.9 % High 0-10 [facility] Neutrophil percentageOrdered By: Jes Ortiz on 02-16-2025 Neutrophils/100 WBC (Bld) 53.8 % 47-70 [facility] Nucleated red blood cell per centageOrdered By: Jes Ortiz on 02-16-2025 Nucleated RBC/100 WBC (Bld) [Ratio] 0 % 0-5 [facility] Platelet countOrdered By: Evelyn Ortiz on 02-16-2025 Platelets (Bld) [#/Vol] 199 10*3/uL 150-450 [facility] Potassium measurement (mass/ volume)Ordered By: Jes Ortiz on 02-16-2025 Potassium (Unsp spec) [Mass/Vol] 3.7 mmol/L 3.3-5.1 [facility] RBC Auto (Bld) [#/Vol]Ordere d By: Jes Diana on 02-16-2025 RBC (Bld) [#/Vol] 3.74 10*6/uL Low 4.2-5.[address] [facility] Serum creatinine measurement (mass/volume)Ordered By: Jes Ortiz on 02-16-2025 Creatinine [Mass/Vol] 0.60 mg/dL Low 0.70-1.20 [facility] Serum glucose measurement (m ass/volume)Ordered By: Jeseloy Ortiz on 02-16-2025 Glucose [Mass/Vol] 110 mg/dL High 70-99 [facility] Serum or plasma calcium reg urement (mass/volume)Ordered By: Jeseloy Ortiz on 02-16-2025 Calcium [Mass/Vol] 9.4 mg/dL 7.6-11.0 [facility] Serum or plasma urea nitroge n measurement (mass/volume)Ordered By: Jes Ortiz on 02-16-2025 Urea nitrogen [Mass/Vol] 24 mg/dL High 4-19 [facility] Sodium levelOrdered By: Jes [facility] on 02-16-2025 Sodium [Moles/Vol] 138 mmol/L 133-145 [facility] White blood cell (WBC) count Ordered By: Jes Ortiz on 02-16-2025 WBC (Bld) [#/Vol] 4.5 10*3/uL 4.4-11.0 [facility] 12 Lead EKGon 02-15-2025 12 Lead EKG [facility] Cardiovascular Services [address] [place] [address] 12 Lead EKG 02/15/25 0205 MR#: [id number] Acct: [id number] Name: ANTHONY CHAUDHARY Rep #: [id number] : 1955 69 From: Travon Bond MD Attending Dr: Dr. Eliel Reeves MD Status: DIS MONICA Ordering Dr: Drew Dejesus DO Date: 02/15/25 Location: U Sex: F C Admitted: 02/15/25 Test Reason : DYRHYTHMIA Blood Pressure : */* mmHG Vent. Rate : 65 BPM Atrial Rate : 65 BPM P-R Int : 186 ms QRS Dur : 94 ms QT Int : 418 ms P-R-T Axes : 39 40 33 degrees QTcB Int : 434 ms Normal sinus rhythm Normal ECG Confirmed by Travon Bond ([id number]), web editor ORQUIDEA MARIE ([id number]) on 02/18/2025 10:41:48 AM Referred By: Confirmed By: Travon Bond 02/18/25 1041 Date Travon Bond MD CC: Dr. Eleanor Armstrong DO; Dr. Eliel Reeves MD; Dr. Drew Dejesus DO Signed Normal [facility] Absolute lymphocyte countOrd ered By: Drew Dejesus on 02-15-2025 Lymphocytes Auto (Unsp spec) [#/Vol] 0.83 10*3/uL 0.83-4.51 [facility] Absolute neutrophil countOrd ered By: Drew Dejesus on 02-15-2025 Neutrophils (Bld) [#/Vol] 2.0 10*3/uL 2.0-7.7 [facility] Health Activated partial thrombopla stin time (aPTT) in platelet poor plasma by coagulation aOrdered By: Drew Dejesus on 02-15-2025 aPTT Coag (PPP) [Time] 31.9 s 24.1-36.2 [facility] Anion gap in Serum or Plasma Ordered By: Drew Dejesus on 02-15-2025 Anion gap [Moles/Vol] 10 mmol/L - [facility] Automated lymphocyte count a s percentage of total leukocytesOrdered By: Drew Dejesus on 02-15-2025 Lymphocytes/100 WBC Auto (Unsp spec) 21.8 % [facility] BUN/creatinine ratioOrdered By: Drew Dejesus on 02-15-2025 Urea nitrogen/Creatinine [Mass ratio] 38.2 mg/mg High 07-08 [facility] Basic Metabolic Profile (BMP )on 02-15-2025 BUN/CRE 38.2 RATIO High 07-08 [facility] Comment on above: Performed By: #### L 100.0100, L300.3900, L300.4310, L500.2500, L501.4021 ####[facility] [address] [place], [address] Calcium [Mass/Vol] 9.2 mg/dL Normal 7.6-11.0 [facility] Comment on above: Performed By: #### L 100.0100, L300.3900, L300.4310, L500.2500, L501.4021 ####[facility] [address] [place], [address] Chloride [Moles/Vol] 105 mmol/L Normal 98-108 [facility] Comment on above: Performed By: #### L 100.0100, L300.3900, L300.4310, L500.2500, L501.4021 ####[facility] [address] [place], [address] CO2 [Moles/Vol] 24.4 mmol/L Normal 21.0-32.0 [facility] Comment on above: Performed By: #### L 100.0100, L300.3900, L300.4310, L500.2500, L501.4021 ####[facility] [address] [place], [address] Creatinine [Mass/Vol] 0.68 mg/dL Low 0.70-1.20 [facility] Comment on above: Performed By: #### L 100.0100, L300.3900, L300.4310, L500.2500, L501.4021 ####[facility] [address] [place], [address] ECRCL 57.94 ml/min Normal 50-250 [facility] Comment on above: Performed By: #### L 100.0100, L300.3900, L300.4310, L500.2500, L501.4021 ####[facility] [address] [place], [address] GAP 10 Normal 5-15 [facility] Comment on above: Performed By: #### L 100.0100, L300.3900, L300.4310, L500.2500, L501.4021 ####[facility] [address] [place], [address] GFR/1.73 sq M.predicted among non-blacks MDRD (S/P/Bld) [Vol rate/Area] 93 mL/min/{1.73_m2} Normal >60 [facility] Comment on above: Result Comment: mL/m in/1.73m2 CKD-EPI Creatinine Equation (2020) Performed By: #### L 100.0100, L300.3900, L300.4310, L500.2500, L501.4021 ####[facility] [address] [place], [address] Glucose [Mass/Vol] 103 mg/dL High 70-99 [facility] Comment on above: Performed By: #### L 100.0100, L300.3900, L300.4310, L500.2500, L501.4021 ####[facility] [address] [place], [address] Potassium [Moles/Vol] 3.6 mmol/L Normal 3.3-5.1 [facility] Comment on above: Performed By: #### L 100.0100, L300.3900, L300.4310, L500.2500, L501.4021 ####[facility] [address] [place], [address] Sodium [Moles/Vol] 140 mmol/L Normal 133-145 [facility] Comment on above: Performed By: #### L 100.0100, L300.3900, L300.4310, L500.2500, L501.4021 ####[facility] [address] [place], [address] Urea nitrogen [Mass/Vol] 26 mg/dL High 4-19 [facility] Comment on above: Performed By: #### L 100.0100, L300.3900, L300.4310, L500.2500, L501.4021 ####[facility] [address] [place], [address] Basophil percentageOrdered B y: Drew Dejesus on 02-15-2025 Basophils/100 WBC (Bld) 1.6 % High 0-1 [facility] Bedside Glucoseon 02-15-2025 FINGERSTICK GLU 92 mg/dL Normal 74-106 [facility] Comment on above: Result Comment: JANICE GEMENT OF PATIENT CARE PER NURSING PROTOCOL Performed By: #### L 501.080 #### [facility] [address] [place], [address] FINGERSTICK GLU 84 mg/dL Normal 74-106 [facility] Comment on above: Result Comment: JANICE GEMENT OF PATIENT CARE PER NURSING PROTOCOL Performed By: #### L 501.080 ####[facility] [address] [place], [address] Bilirubin Test strip Ql (U)O rdered By: Drew Dejesus on 02-15-2025 Bilirubin Ql (U) Negative Negative [facility] Brain without Contraston Brain without Contrast [facility] Imaging Services [address] [place] [address] Brain without Contrast MR#: [id number] Acct: [id number] Name: NEENAANTHONY K Rep #: [id number] : 1955 F 69 From: Karlee Vines PCP: Dr. Eleanor Armstrong, DO Status: ADM MONICA Study: Brain without Contrast Date of Exam: 02/15/25 Exam# [id number] Ordering Dr: Marvin Becerril MD PROCEDURE: BRAIN WITHOUT CONTRAST 02/15/2025 REASON FOR EXAM: WEAKNESS TECHNIQUE: Noncontrast brain MRI. Multiplanar and multisequence images were obtained. COMPARISON: None FINDINGS: Brain: No acute intracranial hemorrhage or infarction. No mass effect. No midline shift. Mild chronic microvascular ischemic changes. Ventricles: Unremarkable. Sinuses: Unremarkable Mastoids: Unremarkable MRI/Brain without Contrast IMPRESSION: No acute intracranial process. Mild chronic microvascular ischemic changes. Reading Location: [facility] CC: Dr. Eleanor Armstrong DO; Dr. Marvin Becerril MD Fire Operations Forester: Signed Normal [facility] CBC W/Diff, Automatedon 01-19 Absolute Lymph 0.83 X10 3/uL Normal 0.83-4.51 [facility] Comment on above: Performed By: #### L 100.0100, L300.3900, L300.4310, L500.2500, L501.4021 #### [facility] [address] [place], [address] Absolute Neut 2.0 X10 3/uL Normal 2.0-7.7 [facility] Comment on above: Performed By: #### L 100.0100, L300.3900, L300.4310, L500.2500, L501.4021 #### [facility] [address] [place], [address] Basophils/100 WBC (Bld) 1.6 % High 0-1 [facility] Comment on above: Performed By: #### L 100.0100, L300.3900, L300.4310, L500.2500, L501.4021 #### [facility] [address] [place], [address] Eosinophils/100 WBC (Bld) 5.8 % High 0-5 [facility] Comment on above: Performed By: #### L 100.0100, L300.3900, L300.4310, L500.2500, L501.4021 #### [facility] [address] [place], [address] Erythrocyte distribution width (RBC) [Ratio] 13.2 % Normal 11.6-14.6 [facility] Comment on above: Performed By: #### L 100.0100, L300.3900, L300.4310, L500.2500, L501.4021 #### [facility] [address] [place], [address] Hematocrit (Bld) [Volume fraction] 36.9 % Low 37-47 [facility] Comment on above: Performed By: #### L 100.0100, L300.3900, L300.4310, L500.2500, L501.4021 #### [facility] [address] [place], [address] Hemoglobin (Bld) [Mass/Vol] 12.4 g/dL Normal 12.0-15.0 [facility] Comment on above: Performed By: #### L 100.0100, L300.3900, L300.4310, L500.2500, L501.4021 #### [facility] [address] [place], [address] IG% 0.300 Normal 0.0-0.9 [facility] Comment on above: Result Comment: IG% - Immature Granulocytes (promyelocytes, myelocytes and metamyelocytes) > 1% indicates that a LEFT SHIFT is Present. Performed By: #### L 100.0100, L300.3900, L300.4310, L500.2500, L501.4021 #### [facility] [address] [place], [address] Lymphocytes/100 WBC (Bld) 21.8 % Normal 19-41 [facility] Comment on above: Performed By: #### L 100.0100, L300.3900, L300.4310, L500.2500, L501.4021 #### [facility] [address] [place], [address] MCH (RBC) [Entitic mass] 32.6 pg High 27.0-32.0 [facility] Comment on above: Performed By: #### L 100.0100, L300.3900, L300.4310, L500.2500, L501.4021 #### [facility] [address] [place], [address] MCHC (RBC) [Mass/Vol] 33.6 g/dL Normal 32-36 [facility] Comment on above: Performed By: #### L 100.0100, L300.3900, L300.4310, L500.2500, L501.4021 #### [facility] [address] [place], [address] MCV (RBC) [Entitic vol] 97.1 fL Normal 81-99 [facility] Comment on above: Performed By: #### L 100.0100, L300.3900, L300.4310, L500.2500, L501.4021 #### [facility] [address] [place], [address] Monocytes/100 WBC (Bld) 18.9 % High 0-10 [facility] Comment on above: Performed By: #### L 100.0100, L300.3900, L300.4310, L500.2500, L501.4021 #### [facility] [address] [place], [address] Neutrophils/100 WBC (Bld) 51.6 % Normal 47-70 [facility] Comment on above: Performed By: #### L 100.0100, L300.3900, L300.4310, L500.2500, L501.4021 #### [facility] [address] [place], [address] Nucleated RBC (Bld) [#/Vol] 0 10*3/uL Normal 0-5 [facility] Comment on above: Performed By: #### L 100.0100, L300.3900, L300.4310, L500.2500, L501.4021 #### [facility] [address] [place], [address] Platelet mean volume (Bld) [Entitic vol] 10.3 fL Normal 6.2-12.0 [facility] Comment on above: Performed By: #### L 100.0100, L300.3900, L300.4310, L500.2500, L501.4021 #### [facility] [address] [place], [address] Platelets (Bld) [#/Vol] 204 10*3/uL Normal 150-450 [facility] Comment on above: Performed By: #### L 100.0100, L300.3900, L300.4310, L500.2500, L501.4021 #### [facility] [address] [place], [address] RBC (Bld) [#/Vol] 3.80 10*6/uL Low 4.2-5.[address] [facility] Comment on above: Performed By: #### L 100.0100, L300.3900, L300.4310, L500.2500, L501.4021 #### [facility] [address] [place], [address] RDW SD 47.3 fl High 35.1-43.9 [facility] Comment on above: Performed By: #### L 100.0100, L300.3900, L300.4310, L500.2500, L501.4021 #### [facility] [address] [place], [address] WBC (Bld) [#/Vol] 3.8 10*3/uL Low 4.4-11.0 [facility] Comment on above: Performed By: #### L 100.0100, L300.3900, L300.4310, L500.2500, L501.4021 #### [facility] [address] [place], [address] Calculated very low density lipoprotein (VLDL) cholesterol measurementOrdered By: Marvin Becerril on 02-15-2025 Calculated very low density lipoprotein (VLDL) cholesterol measurement 8 mg/dL 5-40 [facility] Carbon dioxide, total [Moles /volume] in Central venous bloodOrdered By: Drew Dejesus on 02-15-2025 CO2 [Moles/Vol] 24.4 mmol/L 21.0-32.0 [facility] Chloride assayOrdered By: Shiv Dejesus on 02-15-2025 Chloride [Moles/Vol] 105 mmol/L 98-108 [facility] Echo Completeon 02-15-2025 Echo Complete [facility] [address] [place] [address] Echo Complete 02/15/25 0834 MR#: [id number] Acct: [id number] Name: ANTHONY CHAUDHARY Rep #: [id number] : 1955 69 From: Carolina Centeno MD Attending Dr: Dr. Jes Ortiz MD Status: AD M MONICA Ordering Dr: Marvin Becerril MD Date: 02/15/25 Location: U Sex: F C Admitted: 02/15/25 Reason For Study Reason For Study: TIA/CVA Procedure This was a 2D Doppler, Color Flow transthoracic echocardiogram. The study was technically difficult. Exam performed portable in patient room. Left Ventricle Normal left ventricle. The estimated ejection fraction is 55???60 %. Right Ventricle Normal right ventricle. Normal systolic function. Atria Normal left atrium. Normal right atrium. Mitral Valve There is mild mitral annular calcification. Tricuspid Valve Normal tricuspid valve. Aortic Valve Trisinus/trileaflet aortic valve. Pulmonic Valve The pulmonic valve is not well visualized. Great Vessels Normal sized aortic root. Pericardium/Pleural No pericardial effusion. MMode/2D Measurements Calculations LVIDd: 3.9 cm IVSd: 0.80 cm LAV(MOD-bp): 56.7 ml LVIDs: 2.5 cm LVPWd: 0.86 cm LAV(MOD-bp) Indexed: 35.0 ml/m2 FS: 37.4 % LAV(MOD-sp2): 78.7 ml LAV(MOD-sp4): 34.5 ml _ SV(MOD-sp4): 52.5 ml LVAd ap4: 26.6 cm2 LVAd ap2: 21.7 cm2 LVLd ap4: 7.0 cm LVLd ap2: 7.8 cm SI(MOD-sp4): 32.4 ml/m2 EDV(MOD-sp4): 81.5 ml EDV(MOD-sp2): 51.3 ml EDV(sp4-el): 85.2 ml EDV(sp2-el): 51.1 ml LVAs ap4: 13.7 cm2 LVAs ap2: 10.7 cm2 LVLs ap4: 5.7 cm LVLs ap2: 6.5 cm ESV(MOD-sp4): 29.0 ml ESV(MOD-sp2): 17.0 ml ESV(sp4-el): 27.9 ml ESV(sp2-el): 15.1 ml EF(MOD-sp4): 64.4 % EF(MOD-sp2): 66.8 % EF(sp4-el): 67.2 % _ SV(MOD-sp2): 34.2 ml SV(sp4-el): 57.3 ml LA A4 area: 15.1 cm2 SI(MOD-sp2): 21.1 ml/m2 _ LA dimension(2D): 3.9 cm TAPSE: 1.9 cm RA A4 area: 18.5 cm2 Time Measurements MV dec time: 0.24 sec Doppler Measurements Calculations MV E max roderick: 78.8 cm/sec Lat Peak E' Roderick: 8.9 cm/sec Med Peak E' Roderick: 8.4 cm/sec MV A max roderick: 64.9 cm/sec E/E' lat: 8.8 E/E' med: 9.4 MV E/A: 1.2 _ MV V2 max: 72.1 cm/sec MV P1/2t max roderick: 77.4 cm/sec Ao V2 max: 139.1 cm/sec MV max P.1 mmHg MV P1/2t: 71.5 msec Ao max P.7 mmHg MV V2 mean: 38.2 cm/sec MV dec slope: 316.8 cm/sec2 Ao V2 mean: 93.4 cm/sec MV mean P.70 mmHg Ao mean P.9 mmHg MV V2 VTI: 22.0 cm MVA(P1/2t): 3.1 cm2 Ao V2 VTI: 29.5 cm AV (velocity ratio): 0.63 _ LV V1 max: 85.2 cm/sec PA V2 max: 73.9 cm/sec TR max roderick: 209.8 cm/sec LV V1 max P.9 mmHg TR max P.6 mmHg LV V1 mean P.4 mmHg LV V1 mean: 56.2 cm/sec LV V1 VTI: 18.7 cm ECHO/Echo Complete Interpretation Summary The estimated ejection fraction is 55???60 %. Normal LV systolic function No significant valve abnormality No previous echocardiogram to compare Ordering Physician: Marvin Becerril Referring Physician: Eleanor Armstrong Performed By: Ara Bailey RDCS, RVT 02/15/251713 Date Carolina Centeno MD CC: Dr. Eleanor Armstrong DO; Dr. Jes Ortiz MD; Dr. Marvin Becerril MD Date Dictated: 02/15/2534 Date Transcribed: 02/15/251713 Fire Operations Forester: Signed Normal [facility] Echocardiogram study reportO rdered By: Carolina Centeno on 02-15-2025 Study report [facility] [address] [place] [address] Echo Complete 02/15/25 0834 MR#: [id number] Acct: [id number] Name: ANTHONY CHAUDHARY Rep #:[id number] : 1955 69 From: Carolina Centeno MD Attending Dr: Dr. Jes Ortiz MD Status: ADM MONICA Ordering Dr: Marvin Becerril MD Da te: 02/15/25 Location: [facility] Sex: F C Admitted: 02/15/25 Reason For Study Reason For Study: TIA/CVA Procedure This was a 2D Doppler, Color Flow transthoracic echocardiogram. The study was technically difficult. Exam performed portable in patient room. Left Ventricle Normal left ventricle. The estimated ejection fraction is 55???60 %. Right Ventricle Normal right ventricle. Normal systolic function. Atria Normal left atrium. Normal right atrium. Mitral Valve There is mild mitral annular calcification. Tricuspid Valve Normal tricuspid valve. Aortic Valve Trisinus/trileaflet aortic valve. Pulmonic Valve The pulmonic valve is not well visualized. Great Vessels Normal sized aortic root. Pericardium/Pleural No pericardial effusion. MMode/2D Measurements & Calculations LVIDd: 3.9 cm IVSd: 0.80 cm LAV(MOD-bp): 56.7 ml LVIDs: 2.5 cm LVPWd: 0.86 cm LAV(MOD-bp) Indexed: 35.0 ml/m2 FS: 37.4 % LAV(MOD-sp2): 78.7 ml LAV(MOD-sp4): 34.5 ml SV(MOD-sp4): 52.5 ml LVAd ap4: 26.6 cm2 LVAd ap2: 21.7 cm2 LVLd ap4: 7.0 cm LVLd ap2: 7.8 cm SI(MOD-sp4): 32.4 ml/m2 EDV(MOD-sp4): 81.5 ml EDV(MOD-sp2): 51.3 ml EDV(sp4-el): 85.2 ml EDV(sp2-el): 51.1 ml LVAs ap4: 13.7 cm2 LVAs ap2: 10.7 cm2 LVLs ap4: 5.7 cm LVLs ap2: 6.5 cm ESV(MOD-sp4): 29.0 ml ESV(MOD-sp2): 17.0 ml ESV(sp4-el): 27.9 ml ESV(sp2-el): 15.1 ml EF(MOD-sp4): 64.4 % EF(MOD-sp2): 66.8 % EF(sp4-el): 67.2 % SV(MOD-sp2): 34.2 ml SV(sp4-el): 57.3 ml LA A4 area: 15.1 cm2 SI(MOD-sp2): 21.1 ml/m2 LA dimension(2D): 3.9 cm TAPSE: 1.9 cm RA A4 area: 18.5 cm2 Time Measurements MV dec time: 0.24 sec Doppler Measurements & Calculations MV E max roderick: 78.8 cm/sec Lat Peak E' Roderick: 8.9 cm/sec Med Peak E' Roderick: 8.4 cm/sec MV A max roderick: 64.9 cm/sec E/E' lat: 8.8 E/E' med: 9.4 MV E/A: 1.2 MV V2 max: 72.1 cm/sec MV P1/2t max roderick: 77.4 cm/sec Ao V2 max: 139.1 cm/sec MV max P.1 mmHg MV P1/2t: 71.5 msec Ao max P.7 mmHg MV V2 mean: 38.2 cm/sec MV dec slope: 316.8 cm/sec2 Ao V2 mean: 93.4 cm/sec MV mean P.70 mmHg Ao mean P.9 mmHg MV V2 VTI: 22.0 cm MVA(P1/2t): 3.1 cm2 Ao V2 VTI: 29.5 cm AV (velocity ratio): 0.63 _ LV V1 max: 85.2 cm/sec PA V2 max: 73.9 cm/sec TR max roderick: 209.8 cm/sec LV V1 max P.9 mmHg TR max P.6 mmHg LV V1 mean P.4 mmHg LV V1 mean: 56.2 cm/sec LV V1 VTI: 18.7 cm ECHO/Echo Complete Interpretation Summary The estimated ejection fraction is 55???60 %. Normal LV systolic function No significant valve abnormality No previous echocardiogram to compare Ordering Physician: Marvin Becerril Referring Physician: Eleanor Armstrong Performed By: Ara Bailey, RDSELWYN, RVT 02/15/251713 Date _ Carolina Centeno MD CC: Dr. Eleanor Armstrong DO; Dr. Jes Ortiz MD; Dr. Marvin Becerril MD ~ Date Dictated: 02/15/2534 Date Transcribed: 02/15/251713 Fire Operations Forester: Signed [facility] Work Phone: Emergency Department Summary on 02-15-2025 Emergency Department Summary [facility] Medical Records Department [address] [place] [address] Emergency Department Summary 02/15/25 MR#: [id number] Acct: [id number] Name: ANTHONY CHAUDHARY Rep #: [id number] : 1955 69 From: Drew Arriola PCP: Dr. Eleanor Armstrong DO Status:ADM MONICA Location: [place] [address] HPI History of Present Illness Chief Complaint: Neuro S/Sx Informant: patient and spouse/S.O. Narrative Narrative: History of Parkinson's ambulates with a walker at baseline. Here with spouse by private vehicle for evaluation. States at 3 AM yesterday noted 24 hours she got up she had to hold the wall for balance stated feeling weak. got her back in bed 10 minutes later she walked out to her recliner. Reports was able to walk for breakfast to the kitchen table. They had a neurology appoint with Dr. Truong at 11 AM for which she walked there. She has been dealing with neuropathy pain to her lower legs. 3 weeks ago was seen in the office she has had outpatient nerve conduction studies. She was put on baclofen at that time. They follow-up today states additional nerve testing is ordered. Her baclofen was increased however that has not been taken yet. Reports that 8 PM patient got weak again unstable balance. At the dinner table had trouble moving her right arm and shaking. No headaches no trouble speaking. He helped patient back to the recliner, however she had an accident with urine therefore he had to clean her in the shower. Decided to bring her in to be evaluated. She denies recent vomiting or diarrhea denies urinary symptoms denies any cough. Prior similar symptoms: No PFSH PFSH Medical History Parkinson disease COVID-19 Acute bronchitis, unspecified Anemia Neck pain Shoulder pain Home Medications ???Medication ???Instructions ???Recorded ???Last Taken ???Type magnesium 200 mg tablet 200 mg PO DAILY 10/27/21 02/13/25 History citalopram 10 mg tablet (Celexa) 10 mg PO DAILY 11/08/22 02/13/25 H istory coenzyme Q10 30 mg capsule 30 mg PO DAILY 11/08/22 02/13/25 H istory omega-3 fatty acids 1,000 mg 1,000 mg PO DAILY 11/08/22 5 History capsule ropinirole 3 mg tablet 3 mg PO BID #60 tabs 11/26/2401/18 Rx carbidopa ER 25 mg-levodopa 100 mg 2 tab PO .QID #240 tabs 01/28/25 02/15/25 Rx tablet,extended release naproxen 500 mg tablet 500 mg PO BID PRN pain #60 tabs 02/14/25 Rx baclofen 10 mg tablet See Rx Instructions .Route 5 02/14/25 Rx .COMPLEX muscle pain/muscle spasm #180 tabs multivitamin (Daily Multi-Vitamin 1 tab PO DAILY 02/15/25 02/13/25 History tablet) Allergy/AdvReac Type Severity Reaction Status Date / Time No Known Allergies Allergy Verified 02/15/25 06:04 Family History Mother Non-Hodgkin lymphoma Father Alzheimer disease Sister Bone cancer CVA (cerebral vascular accident) Parkinsons disease Grandfather Myocardial infarction Grandfather Myocardial infarction Surgical History No history of previous surgery Social History household members: spouse housing: house Smoking Status: Never smoker second hand exposure: No alcohol intake: current details: socially substance use type: does not use deshaun/scientology: Bahai seatbelt use: always ROS ROS ED Constitutional Constitutional ED: Denies chills, fever(s) or sweats ENT ENT ED: Denies sore throat Cardiovascular Cardiovascular: Denies chest pain, leg edema, palpitations or racing heartbeat Respiratory/Chest Respiratory/Chest: Denies cough, dyspnea or dyspnea on exertion Gastrointestinal Gastrointestinal: Denies abdominal pain, diarrhea, nausea or vomiting Genitourinary Genitourinary ED: Denies dysuria, hematuria or urinary frequency Musculoskeletal Musculoskeletal: Denies back pain, extremity pain or neck pain Integumentary Denies rash or wounds Neurologic Neurologic: Reports weakness and other Details: Unstable gait. ; Denies headache(s) or paresthesias EXAM Physical Exam Const Vital Signs: 02/15/25 01:37 02/15/25 01:56 02/15/25 02:00 Temperature 98.2 F Temperature Source Oral Pulse Rate 78 65 Respiratory Rate 14 16 Blood Pressure 170/91 H 164/97 H Blood Pressure Mean 117 119 Pulse Ox 98 98 Oxygen Delivery Method Room Air Room Air Room Air 02/15/25 02:39 02/15/25 03:00 02/15/25 03:31 Temperature Temperature Source Pulse Rate 70 67 67 Respiratory Rate 15 18 18 Blood Pressure 176/87 H 160/102 H 160/102 H Blood Pressure Mean 116 121 121 Pulse Ox 99 98 96 Oxygen Delivery Method Room Air Room Air Room Air 02/15/25 (more content not included)... Normal [facility] Eosinophil percentageOrdered By: Drew Dejesus on 02-15-2025 Eosinophils/100 WBC (Bld) 5.8 % High 0-5 [facility] Erythrocyte distribution wid th ratioOrdered By: Drew Dejesus on 02-15-2025 Erythrocyte distribution width (RBC) [Ratio] 13.2 % 11.6-14.6 [facility] Erythrocyte distribution wid th standard deviationOrdered By: Drew Dejesus on 02-15-2025 Erythrocyte distribution width (RBC) [Ratio] 47.3 fl High 35.1-43.9 [facility] Glomerular filtration rate ( GFR) estimation/1.73 sq m using serum, plasma, or whole bOrdered By: Drew Dejesus on 02-15-2025 GFR/1.73 sq M.predicted among non-blacks MDRD (S/P/Bld) [Vol rate/Area] 93 mL/min/{1.73_m2} >60 [facility] Comment on above: mL/min/1.73m2 CKD-EP I Creatinine Equation (2020) [facility] deOrdered By: Jes Ortiz on 02-15-2025 Glucose [Mass/Vol] 84 mg/dL 74-106 [facility] Comment on above: MANAGEMENT OF PATIEN T CARE PER NURSING PROTOCOL H AND P Exam - [facility] 02-15-2025 H&P Exam - Hospitalist [facility] Medical Records Department [address] [place] [address] H P Exam - Hospitalist 02/15/25 0442 MR#: [id number] Acct: [id number] Name: ANTHONY CHAUDHARY Rep #: [id number] : 1955 69 From: Marvin Becerril MD PCP: Dr. Eleanor Armstrong, DO Status:ADM MONICA Location: [place] [address] HPI - General General Date of Admission: 02/15/25 HPI Narrative ANTHONY CHAUDHARY, is a 69 F who presents to the hospital with 24 hours of waxing and waning weakness. She has a history of Parkinson's that was first diagnosed in 2021 and since then she has been tried on multiple different medications. Currently she is on baclofen for what her neurologist believes are spasms as she is complaining of bilateral lower extremity muscle pains, she is also on ropinirole for restless leg syndrome and she is on Sinemet 2 tablets 4 times a day. Approximately 3 AM yesterday morning she had some significant weakness and gait instability and over the last 24 hours she has been having a waxing and waning weakness especially in the right upper extremity. She does have some leadpipe rigidity though the states that this is much improved as well as masked facies. He states that she also used to have a locking gait but the medications have helped with this. She is having outpatient EMG studies done and she states that the her neurologist wants to do more pinpointed nerve conduction studies as well as a possible MRI of her back. In the ER CTA of the head and neck as well as CT of the brain were negative. [facility] Medical History Parkinson disease COVID-19 Acute bronchitis, unspecified Anemia Neck pain Shoulder pain Home Medications ???Medication ???Instructions ???Recorded ???Last Taken ???Type magnesium 200 mg tablet 200 mg PO DAILY 10/27/21 02/13/25 History citalopram 10 mg tablet (Celexa) 10 mg PO DAILY 11/08/22 02/13/25 H istory coenzyme Q10 30 mg capsule 30 mg PO DAILY 11/08/22 02/13/25 H istory omega-3 fatty acids 1,000 mg 1,000 mg PO DAILY 11/08/22 5 History capsule ropinirole 3 mg tablet 3 mg PO BID #60 tabs 11/26/2401/18 Rx carbidopa ER 25 mg-levodopa 100 mg 2 tab PO .QID #240 tabs 01/28/25 02/15/25 Rx tablet,extended release naproxen 500 mg tablet 500 mg PO BID PRN pain #60 tabs 02/14/25 Rx baclofen 10 mg tablet See Rx Instructions .Route 5 02/14/25 Rx .COMPLEX muscle pain/muscle spasm #180 tabs multivitamin (Daily Multi-Vitamin 1 tab PO DAILY 02/15/25 02/13/25 History tablet) Allergy/AdvReac Type Severity Reaction Status Date / Time No Known Allergies Allergy Verified 02/15/25 06:04 Family History Mother Non-Hodgkin lymphoma Father Alzheimer disease Sister Bone cancer CVA (cerebral vascular accident) Parkinsons disease Grandfather Myocardial infarction Grandfather Myocardial infarction Surgical History No history of previous surgery Social History household members: spouse housing: house Smoking Status: Never smoker second hand exposure: No alcohol intake: current details: socially substance use type: does not use deshaun/scientology: Bahai seatbelt use: always ROS Constitutional Constitutional: Denies chills, fatigue, fever(s) or malaise Eyes Eyes: Denies blurry vision ENT HEENT: Denies headache(s) or nasal discharge Cardiovascular Cardiovascular: Denies chest pain, dyspnea on exertion or syncope Respiratory/Chest Respiratory/Chest: Denies cough, shortness of breath at rest or shortness of breath with exertion Gastrointestinal Gastrointestinal: Denies constipation, diarrhea, nausea or vomiting Genitourinary Genitourinary: Denies dysuria Neurologic Neurologic: Reports abnormal gait and focal weakness; Denies numbness or tremor(s) Psychiatric Psychiatric: Denies anxiety or depression Vital Signs Vital Signs Vital Signs: 02/15/25 01:37 02/15/25 01:56 02/15/25 02:00 Temperature 98.2 F Temperature Source Oral Pulse Rate 78 65 Respiratory Rate 14 16 Blood Pressure 170/91 H 164/97 H Blood Pressure Mean 117 119 Pulse Ox 98 98 Oxygen Delivery Method Room Air Room Air Room Air 02/15/25 02:39 02/15/25 03:00 02/15/25 03:31 Temperature Temperature Source Pulse Rate 70 67 67 Respiratory Rate 15 18 18 Blood Pressure 176/87 H 160/102 H 160/102 H Blood Pressure Mean 116 121 121 Pulse Ox 99 98 96 Oxygen Delivery Method Room Air Room Air Room Air 02/15/25 04:25 02/15/25 04:26 Temperature 98.5 F 98.5 F Temperature Source Oral Pulse Rate 66 66 Respiratory Rate 16 16 Blood Pressur (more content not included)... Normal [facility] Hematocrit Auto (Bld) [Volum e fraction]Ordered By: Drew Dejesus on 02-15-2025 Hematocrit (Bld) [Volume fraction] 36.9 % Low 37-47 [facility] Hemoglobin measurementOrdere d By: Drew Dejesus on 02-15-2025 Hemoglobin (Bld) [Mass/Vol] 12.4 g/dL 12.0-15.0 [facility] Immature granulocytes/100 WB C Auto (Bld)Ordered By: Drew Dejesus on 02-15-2025 Immature granulocytes/100 WBC (Bld) 0.300 % 0.0-0.9 [facility] Comment on above: IG% - Immature Granu locytes (promyelocytes, myelocytes and metamyelocytes) > 1% indicates that a LEFT SHIFT is Present. International normalized rat io (INR) calculationOrdered By: Drew Dejesus on 02-15-2025 INR Coag (Bld) [Relative time] 1.0 {INR} [facility] Ketones Test strip Ql (U)Ord ered By: Drew Dejesus on 02-15-2025 Ketones Ql (U) Negative Negative [facility] L499.0042on 02-15-2025 Trop T High Sen 20 ng/L High <=14 [facility] Comment on above: Performed By: #### L 499.0042 #### [facility] [address] [place], [address] L499.0043on 02-15-2025 Trop T High Sen 19 ng/L High <=14 [facility] Comment on above: Performed By: #### L 499.0043 #### [facility] [address] [place], [address] L501.4021on 02-15-2025 Trop T High Sen 19 ng/L High <=14 [facility] Comment on above: Performed By: #### L 100.0100, L300.3900, L300.4310, L500.2500, L501.4021 ####[facility] [address] [place], [address] LDL calc ser/plasOrdered By: Marvin Becerril on 02-15-2025 Cholesterol in LDL [Mass/Vol] 160 mg/dL [facility] Comment on above: Jzhjsiksec=594-122 m g/dL & Higher Jzct=075 mg/dL or greater Lipid Profileon 02-15-2025 CHOL:HDL 2.60 Normal [facility] Comment on above: Order Comment: Comme nts: NPO at [place] prior to lipid panel Performed By: #### L 500.4100 #### [facility] [address] [place], [address] Cholesterol [Mass/Vol] 273 mg/dL High <=200 [facility] Comment on above: Order Comment: Comme nts: NPO at [place] prior to lipid panel Result Comment: Chol esterol level, Desirable <200 mg/dL Borderline high cholesterol 200-239 mg/dL High cholesterol >=240 mg/dL Recommendations of the NCEP Adult Treatment Panel for the following risk-cutoff thresholds for the [place] population. Performed By: #### L 500.4100 #### [facility] [address] [place], [address] Cholesterol in HDL [Mass/Vol] 105 mg/dL Normal [facility] Comment on above: Order Comment: Comme nts: NPO at [place] prior to lipid panel Result Comment: Dania onal Cholesterol Education Program (NCEP) guidelines: <40 mg/dL: Low HDL-cholesterol (major risk factor for CHD) >= 60 mg/dL: High HDL-cholesterol (negative risk factor for CHD) HDL-cholesterol is affected by a number of factors, e.g. smoking, exercise, hormones, sex and age. Performed By: #### L 500.4100 #### [facility] [address] [place], [address] Cholesterol in LDL [Mass/Vol] 160 mg/dL Normal [facility] Comment on above: Order Comment: Comme nts: NPO at [place] prior to lipid panel Result Comment: Bord zxrsqs=341-868 mg/dL Higher Xwag=157 mg/dL or greater Performed By: #### L 500.4100 #### [facility] [address] [place], [address] Cholesterol in VLDL [Mass/Vol] 8 mg/dL Normal 5-40 [facility] Comment on above: Order Comment: Comme nts: NPO at [place] prior to lipid panel Performed By: #### L 500.4100 #### [facility] [address] [place], [address] Triglyceride [Mass/Vol] 40 mg/dL Normal [facility] Comment on above: Order Comment: Comme nts: NPO at [place] prior to lipid panel Result Comment: The drugs N-Acetylcysteine and Metamizole may falsely depress this assay. Normal range: <150 mg/dL Borderline High: 150-199 mg/dL High: 200-499 mg/dL Very High: >500 mg/dL Performed By: #### L 500.4100 #### [facility] [address] [place], [place], [address] MCV (mean corpuscular volume ) determinationOrdered By: Drew Dejesus on 02-15-2025 MCV (RBC) [Entitic vol] 97.1 fL 81-99 [facility] MR/CON.PCM.NEon 02-15-2025 MR/CON.PCM.NE [facility] Medical Records Department [address] [place] [address] Consultation - Neurology 02/15/25922 MR#: [id number] Acct: [id number] Name: ANTHONY CHAUDHARY Rep #: [id number] : 1955 69 From: Leilani Zapata MD PCP: Dr. Eleanor Armstrong, DO Status:ADM MONICA Location: [place] [address] Assessment and Plan: Neuro Assessment/Plan ANTHONY CHAUDHARY is a 69 F with a past medical history of parkinsons disease, being evaluated by Teleneurology for leg pains/stiffness and trouble walking. These are chronic issues, seem to worsen when her sinemet is wearing off. There was reports of right sided weakness but on my examination she has full strength throughout. Exam findings consistent with parkinsonism, symptoms predominantly rigidity today. No symptoms to suggest an underlying neuropathy/neuropathic pain although small fiber neuropathy could be considered if she does develop neuropathic symptoms. Diagnosis: Parkinson's disease Plan: Increase Sinemet 2 tab to 5 times daily - 6a/9a/12/3p/6p No need for MRI from neurology standpoint Would consider referral to movement disorder specialist PT evaluation Neurology will sign off I personally attended this patient and spent a total time of 37 minutes evaluating this patient including clinical assessment, review of chart, medical history imaging, and determining appropriate treatment and workup. HPI Consult Data Date of Consult: 02/15/25 HPI Narrative HPI Narrative: ANTHONY CHAUDHARY, is a 69 F who presents with pain in her feet. Reported yesterday that she had new weakness in her right arm, but she denies this. Reports she has had pain in her legs for some time but feels that is worse. She describes this as pressure feeling like her toes are very tight and painful. She does take baclofen as needed which may help. She has a history of PD and is on Sinemet - currently on 2 tabs QID. She has reports significant benefit from this, but it does wear off. When it wears off she gets more stiff and has worsening of the pain/cramping in her legs/feet. She denies burning, tingling and new weakness. [facility] Medical History Parkinson disease COVID-19 Acute bronchitis, unspecified Anemia Neck pain Shoulder pain Home Medications ???Medication ???Instructions ???Recorded ???Last Taken ???Type magnesium 200 mg tablet 200 mg PO DAILY 10/27/21 02/13/25 History citalopram 10 mg tablet (Celexa) 10 mg PO DAILY 11/08/22 02/13/25 H istory coenzyme Q10 30 mg capsule 30 mg PO DAILY 11/08/22 02/13/25 H istory omega-3 fatty acids 1,000 mg 1,000 mg PO DAILY 11/08/22 5 History capsule ropinirole 3 mg tablet 3 mg PO BID #60 tabs 11/26/2401/18 Rx carbidopa ER 25 mg-levodopa 100 mg 2 tab PO .QID #240 tabs 01/28/25 02/15/25 Rx tablet,extended release naproxen 500 mg tablet 500 mg PO BID PRN pain #60 tabs 02/14/25 Rx baclofen 10 mg tablet See Rx Instructions .Route 5 02/14/25 Rx .COMPLEX muscle pain/muscle spasm #180 tabs multivitamin (Daily Multi-Vitamin 1 tab PO DAILY 02/15/25 02/13/25 History tablet) Allergy/AdvReac Type Severity Reaction Status Date / Time No Known Allergies Allergy Verified 02/15/25 06:04 Family History Mother Non-Hodgkin lymphoma Father Alzheimer disease Sister Bone cancer CVA (cerebral vascular accident) Parkinsons disease Grandfather Myocardial infarction Grandfather Myocardial infarction Surgical History No history of previous surgery Social History household members: spouse housing: house Smoking Status: Never smoker second hand exposure: No alcohol intake: current details: socially substance use type: does not use deshaun/scientology: Bahai seatbelt use: always Vital Signs Vital Signs Vital Signs: 02/15/25 01:37 02/15/25 01:56 02/15/25 02:00 Temperature 98.2 F Temperature Source Oral Pulse Rate 78 65 Pulse Strength Respiratory Rate 14 16 Respiratory Effort Respiratory Depth Respiratory Pattern Blood Pressure 170/91 H 164/97 H Blood Pressure Mean 117 119 Blood Pressure Source Blood Pressure Position Blood Pressure Location Pulse Ox 98 98 Oxygen Delivery Method Room Air Room Air Room Air 02/15/25 02:39 02/15/25 03:00 02/15/25 03:31 Temperature Temperature Source Pulse Rate 70 67 67 Pulse Strength Respiratory Rate 15 18 18 Respiratory Effort Respiratory Depth Respiratory Pattern Blood Pressure 176/87 H 160/102 H 160/102 H Blood Pressure Mean 116 121 121 Blood Pressure Source (more content not included)... Normal [facility] Magnetic resonance imaging r eportOrdered By: Karlee Jason on 02-15-2025 Study report [facility] Imaging Services [address] [place], [place] [id number] Brain without Contrast MR#: [id number] Acct: [id number] Name: ANTHONY CHAUDHARY Conner Rep #: [id number] : 1955 F 69 From: Masha Jason MD PCP: Dr. Eleanor Armstrong, DO Status: AD M [place]ICA Study:Brain without Contrast Date of Exam: 02/15/25 Exam# [id number] Ordering Dr: Marvin Becerril MD PROCEDURE: BRAIN WITHOUT CONTRAST 02/15/2025 REASON FOR EXAM: WEAKNESS TECHNIQUE: Noncontrast brain MRI. Multiplanar and multisequence images were obtained. COMPARISON: None FINDINGS: Brain: No acute intracranial hemorrhage or infarction. No mass effect. No midline shift. Mild chronic microvascular ischemic changes. Ventricles: Unremarkable. Sinuses: Unremarkable Mastoids: Unremarkable MRI/Brain without Contrast IMPRESSION: No acute intracranial process. Mild chronic microvascular ischemic changes. Reading Location: [facility] CC: Dr. Eleanor Armstrong DO; Dr. Marvin Becerril MD ~ Fire Operations Forester: Signed [facility] Mean corpuscular hemoglobin (MCH) determinationOrdered By: Drew Dejesus on 02-15-2025 MCH (RBC) [Entitic mass] 32.6 pg High 27.0-32.0 [facility] Mean corpuscular hemoglobin concentration (MCHC) determinationOrdered By: Drew Dejesus on 02-15-2025 MCHC (RBC) [Mass/Vol] 33.6 g/dL 32-36 [facility] Mean platelet volume determi nationOrdered By: Drew Dejesus on 02-15-2025 Platelet mean volume (Bld) [Entitic vol] 10.3 fL 6.2-12.0 [facility] Microscopic analysis of urin e for red blood cells (RBC)Ordered By: Drew Dejesus on 02-15-2025 Microscopic analysis of urine for red blood cells (RBC) 0 SEEN /hpf 0-5 [facility] Monocyte percentageOrdered B y: Drew Dejesus on 02-15-2025 Monocytes/100 WBC (Bld) 18.9 % High 0-10 [facility] Mucus LM Ql (Urine sed)Order ed By: Drew Dejesus on 02-15-2025 Mucus Ql (Urine sed) 0 SEEN /hpf [facility] Neutrophil percentageOrdered By: Drew Dejesus on 02-15-2025 Neutrophils/100 WBC (Bld) 51.6 % 47-70 [facility] Nitrite Test strip Ql (U)Ord ered By: Drew Dejesus on 02-15-2025 Nitrite Ql (U) Negative Negative [facility] Nucleated red blood cell per centageOrdered By: Drew Dejesus on 02-15-2025 Nucleated RBC/100 WBC (Bld) [Ratio] 0 % 0-5 [facility] Partial Thromboplast Timeon 02-15-2025 aPTT Coag (Bld) [Time] 31.9 s Normal 24.1-36.2 [facility] Comment on above: Performed By: #### L 100.0100, L300.3900, L300.4310, L500.2500, L501.4021 #### [facility] [address] [place], [address] Platelet countOrdered By: Shiv Dejesus on 02-15-2025 Platelets (Bld) [#/Vol] 204 10*3/uL 150-450 [facility] Potassium measurement (mass/ volume)Ordered By: Drew Dejesus on 02-15-2025 Potassium (Unsp spec) [Mass/Vol] 3.6 mmol/L 3.3-5.1 [facility] Protein Test strip Ql (U)Ord ered By: Drew Dejesus on 02-15-2025 Protein Ql (U) 15 mg/dl High Negative [facility] Prothrombin Time w/INRon INR Coag (PPP) [Relative time] 1.0 {INR} Normal [facility] Comment on above: Performed By: #### L 100.0100, L300.3900, L300.4310, L500.2500, L501.4021 #### [facility] [address] [place], [address] PT Coag (PPP) [Time] 13.6 s Normal 11.7-14.9 [facility] Comment on above: Performed By: #### L 100.0100, L300.3900, L300.4310, L500.2500, L501.4021 #### [facility] [address] [place], [address] Prothrombin timeOrdered By: Drew Dejesus on 02-15-2025 PT Coag (PPP) [Time] 13.6 s 11.7-14.9 [facility] RBC Auto (Bld) [#/Vol]Ordere d By: Drew Dejesus on 02-15-2025 RBC (Bld) [#/Vol] 3.80 10*6/uL Low 4.2-5.[address] [facility] STROKE Brain/Head without Co nton 02-15-2025 STROKE Brain/Head without Cont [facility] Imaging Services [address] [place], [place] [address] STROKE Brain/Head without Cont MR#: [id number] Acct: [id number] Name: ANTHONY CHAUDHARY Rep #: [id number] : 1955 F 69 From: Mike Mcarthur MD PCP: Dr. Eleanor Armstrong DO Status: REG ER Study: STROKE Brain/Head without Cont Date of Exam: 0 02/15/25 Exam# [id number] Ordering Dr: Drew Dejesus DO PROCEDURE: STROKE BRAIN/HEAD WITHOUT CONT 02/15/2025 REASON FOR EXAM: NEURO DEFICIT, ACUTE, STROKE SUSPECTED TECHNIQUE: Head CT without intravenous contrast. Coronal and Sagittal reconstruction series were provided. One or more dose reduction techniques were used (e.g., Automated exposure control, adjustment of the mA and/or kV according to patient size, use of iterative reconstruction technique. RADIATION DOSE SUMMARY: CTDlvol: 44.99 mGy DLP: 829.85 mGycm COMPARISON: 12/28/2019 FINDINGS: No intracranial hemorrhage, mass effect or CT evidence of large vascular territory acute infarct. The ventricles are within limits and midline. Age commensurate chronic and involutional changes. Paranasal sinuses, mastoids and orbits appear within limits. CT/STROKE Brain/Head without Cont IMPRESSION: No intracranial hemorrhage, mass effect or CT evidence of large vascular territory acute infarct. Age commensurate chronic and involutional changes. Findings verbally reported by myself to Dr. Dejesus at 2:35 a.m. 02/15/2025 Reading Location: [facility] CC: Dr. Eleanor Armstrong DO; Dr. Drew Dejesus DO Fire Operations Forester: Signed Normal [facility] STROKE CTA Head AND Neck W/C onon 02-15-2025 STROKE CTA Head AND Neck W/Con [facility] Imaging Services [address] [place], [place] [address] STROKE CTA Head AND Neck W/Con MR#: [id number] Acct: [id number] Name: ANTHONY CHAUDHARY Rep #: [id number] : 1955 F 69 From: Mike Mcarthur MD PCP: Dr. Eleanor Armstrong DO Status: REG ER Study: STROKE CTA Head AND Neck W/Con Date of Exam: 0 02/15/25 Exam# [id number] Ordering Dr: Drew Dejesus DO PROCEDURE: STROKE CTA HEAD AND NECK W/CON 02/15/2025 REASON FOR EXAM: NEURO DEFICIT, ACUTE, STROKE SUSPECTED TECHNIQUE: CTA imaging of the head and neck from the aortic arch to the skull vertex with out contrast and with intravenous contrast. Multiplanar and multisequence images were obtained. Coronal and sagittal MIP images Visualized upper lungs appear clear. C5 through C7 spondylosis/discogenic changes. CONTRAST: 97 cc Isovue 370 IV One or more dose reduction techniques were used (e.g., Automated exposure control, adjustment of the mA and/or kV according to patient size, use of iterative reconstruction technique). RADIATION DOSE SUMMARY: CTDlvol: 16.61 mGy DLP: 577.70 mGycm COMPARISON: None available FINDINGS: Beam hardening streak artifact from contrast bolus. Thoracic aortic arch appears within limits with standard three-vessel branching. Undulating vessels. The vertebral arteries arise as expected. The left vertebral artery is dominant. The vertebral arteries are patent throughout the cervical portions and both appear to contribute to the basilar artery. No flow significant stenosis, vessel cut off or dissection. The right and left common carotid and internal carotid arteries are patent throughout without flow significant stenosis, dissection or vessel cut off. Mild bilateral carotid bulb calcific plaque formation without flow significant stenosing stenosis. The petrous horizontal and vertical portions and paraclinoid internal carotid arteries are patent. The anterior and posterior circulations appear intact. Right and left middle and anterior cerebral arteries are patent. The basilar artery is patent. Bilateral posterior cerebral and superior cerebellar arteries appear patent. No flow significant stenosis, vessel cut off or aneurysm. CT/STROKE CTA Head AND Neck W/Con IMPRESSION: Undulating vessels. No CTA head or neck flow significant stenosis, dissection, vessel cut off or aneurysm as above. Reading Location: [facility] CC: Dr. Eleanor Armstrong DO; Dr. Drew Dejesus, DO Fire Operations Forester: Signed Normal [facility] Screening total cholesterol/ high density lipoprotein (HDL) cholesterol ratioOrdered By: Marvin Becerril on 02-15-2025 Cholesterol.total/Chol esterol in HDL [Mass ratio] 2.60 {ratio} [facility] Serum creatinine measurement (mass/volume)Ordered By: Drew Dejesus on 02-15-2025 Creatinine [Mass/Vol] 0.68 mg/dL Low 0.70-1.20 [facility] Serum glucose measurement (m ass/volume)Ordered By: Drew Dejesus on 02-15-2025 Glucose [Mass/Vol] 103 mg/dL High 70-99 [facility] Serum or plasma calcium reg urement (mass/volume)Ordered By: Drew Dejesus on 02-15-2025 Calcium [Mass/Vol] 9.2 mg/dL 7.6-11.0 [facility] Serum or plasma cholesterol in HDL measurement (mass/volume)Ordered By: Marvin Becerril on 02-15-2025 Cholesterol in HDL [Mass/Vol] 105 mg/dL >40 [facility] Comment on above: National Cholesterol Education Program (NCEP) guidelines:<40 mg/dL: Low HDL-cholesterol (major risk factor for CHD)>= 60 mg/dL: High HDL-cholesterol (negative risk factor for CHD)HDL-cholesterol is affected by a number of factors, e.g. smoking, exercise, hormones, sex and age. Serum or plasma cholesterol measurement (mass/volume)Ordered By: Marvin Becerril on 02-15-2025 Cholesterol [Mass/Vol] 273 mg/dL High <201 [facility] Comment on above: Cholesterol level, D esirable <200 mg/dLBorderline high cholesterol 200-239 mg/dLHigh cholesterol >=240 mg/dLRecommendations of the NCEP Adult Treatment Panel for the following risk-cutoff thresholds for the [place] population. Serum or plasma urea nitroge n measurement (mass/volume)Ordered By: Drew Dejesus on 02-15-2025 Urea nitrogen [Mass/Vol] 26 mg/dL High 4-19 [facility] Sodium levelOrdered By: Drew Dejesus on 02-15-2025 Sodium [Moles/Vol] 140 mmol/L 133-145 [facility] Squamous epithelial cells de tection in urine sediment by light microscopyOrdered By: Drew Dejesus on 02-15-2025 Epithelial cells.squamous LM Ql (Urine sed) 0 SEEN /hpf 01-26 [facility] Triglycerides measurementOrd ered By: Marvin Becerril on 02-15-2025 Triglyceride [Mass/Vol] 40 mg/dL <199 [facility] Comment on above: The drugs N-Acetylcy steine and Metamizole may falsely depress this assay. Normal range: <150 mg/dLBorderline High: 150-199 mg/dLHigh: 200-499 mg/dLVery High: >500 mg/dL Troponin T.cardiac [Mass/vol ume] in Serum or Plasma by High sensitivity methodOrdered By: Drew Dejesus on 02-15-2025 Troponin T.cardiac High sensitivity method [Mass/Vol] 19 ng/L High <14 [facility] Troponin T.cardiac High sensitivity method [Mass/Vol] 20 ng/L High <14 [facility] Troponin T.cardiac High sensitivity method [Mass/Vol] 19 ng/L High <14 [facility] Urinalysis, Completeon 02-15 BACTERIA RARE Normal None Seen [facility] Comment on above: Order Comment: HETAL ROMANOR TO SPECIFY Performed By: #### L 400.0001 #### [facility] [address] [place], [place], [id number] EPI,SQUAMOUS 0 SEEN Normal 01-26 [facility] Comment on above: Order Comment: HETAL CTOR TO SPECIFY Performed By: #### L 400.0001 #### [facility] [address] [place], [place], [id number] Mucus Ql (Urine sed) 0 SEEN Normal [facility] Comment on above: Order Comment: HETAL CTOR TO SPECIFY Performed By: #### L 400.0001 #### [facility] [address] [place], [place], [id number] RBC 0 SEEN Normal 0-5 [facility] Comment on above: Order Comment: HETAL CTOR TO SPECIFY Performed By: #### L 400.0001 #### [facility] [address] [facility] [address] WBC 0 SEEN Normal 0-5 [facility] Comment on above: Order Comment: HETAL CTOR TO SPECIFY Performed By: #### L 400.0001 #### [facility] [address] [place], [place], [id number] Urine clarityOrdered By: Yoel Dejesus on 02-15-2025 Clarity (U) Clear Clear [facility] Urine color determinationOrd ered By: Drew Dejesus on 02-15-2025 Color (U) Yellow Yellow [facility] Urine glucose detectionOrder ed By: Drew Dejesus on 02-15-2025 Glucose Ql (U) Normal mg/dl Normal [facility] Urine leukocyte esterase det ection by dipstickOrdered By: Drew Dejesus on 02-15-2025 Leukocyte esterase Test strip Ql (U) Negative Negative [facility] Urine pHOrdered By: Drew Dejesus on 02-15-2025 pH (U) 7.0 [pH] 5.0 - 8.0 [facility] Urine sediment bacteria coun t by microscopy (number/high power field)Ordered By: Drew Dejesus on 02-15-2025 Bacteria LM.HPF (Urine sed) [#/Area] RARE /hpf None Seen [facility] Urine specific gravity measu rementOrdered By: Drew Dejesus on 02-15-2025 Specific gravity (U) [Rel density] 1.010 1.002-1.03 0 [facility] Urine urobilinogen measureme ntOrdered By: Drew Dejesus on 02-15-2025 Urobilinogen Ql (U) Normal mg/dl Normal [facility] White blood cell (WBC) count Ordered By: Drew Dejesus on 02-15-2025 WBC (Bld) [#/Vol] 3.8 10*3/uL Low 4.4-11.0 [facility] White blood cell countOrdere d By: Drew Dejesus on 02-15-2025 White blood cell count 0 SEEN /hpf 0-5 [facility] Neurology Visit Reporton Neurology Visit Report [employer] [facility] [address] [facility], [address] [place] [address] OFFICE VISIT Date of Service: 02/14/25 MR#: [id number] Acct: [id number] Name: ANTHONY CHAUDHARY Rep #: [id number] : 1955 Provider: Dr. Jac jaime MD Age/Sex: 69/F Location: [facility]. Status: Signed HPI HPI Chief Complaint: Details: Interim History: Anthony returns for follow-up visit. She has Parkinson's disease. She initially presented for evaluation of right lower extremity weakness. While horseback riding in 2020, she noticed having difficulty everting the right foot. Earlier in 2020, she had right calf cramping for which she was treated with a methylprednisolone taper and cyclobenzaprine and this resolved. Her right foot weakness improved over time and subsequently resolved. She did not have radicular pain in the right lower extremity at that time. She had mild occasional low back pain in the past. At that time, she denied having numbness, weakness or pain in the arms or left lower extremity. She has some numbness in the right foot. 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 A lumbar MRI (08/2021) revealed multilevel degenerative disc and joint changes which, per her orthopedic surgery note, was most pronounced at L5-S1 causing mild bilateral foraminal narrowing at this level. She had a right L5-S1 epidural steroid injection in September 2021; this did not produce any change in her symptoms. She was involved in horseback riding and at one point was riding daily, though in summer 2020, she reduced her riding time and later stopped riding horses. As part of her riding gear, she had worn a half chap, which produced pressure in the posterior fibular head region. She also had frequently crossed her legs when seated, and has been attempting to break that habit. 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 A vitamin B12, folate, TSH, thiamine, CMP, and ESR were unremarkable. Her serum free light chains were mildly abnormal.??? In 2021, she developed symptoms consistent with Parkinson's disease. She has had a tremor affecting the upper extremities and lower extremities. She has noticed a feeling of stiffness in her arms and legs. She has had slowing and shuffling of her gait. The slowing of her gait had worsened over time. She has developed hypophonia and micrographia. She has experienced some postural instability. She had multiple falls. She has had freezing episodes that had occurred many times daily. She was started on ropinirole in 2021; she typically had forgotten to take a midday dose of ropinirole. She had some improvement of her handwriting following initiation of ropinirole otherwise she did not notice any significant improvement of her parkinsonian symptoms. Titrating her dose of ropinirole from 1 mg twice daily to 3 mg twice daily was not of clear added benefit. Ropinirole has not been of benefit for her freezing episodes. Azilect 0.5 mg daily was not of symptomatic benefit. Her tremor and feeling of rigidity worsened further. Carbidopa/levodopa 25/100 was initiated and was of benefit however she developed a rash as a side effect to this medication. Carbidopa/levodopa 25/100 was discontinued and the rash resolved. A different formulation, carbidopa/levodopa ER 25/100, was then initiated and this has been of benefit for her mobility and has been well-tolerated. Carbidopa/levodopa ER has not been of significant benefit for her tremor. She has had improvement of her mobility since increasing her dose of carbidopa/levodopa ER 25/100. She currently takes carbidopa ER 25/100 2 tablets 4 times daily; she has not noted further improvement of her symptoms with her last increase of this medication to her current dose. She has tolerated carbidopa/levodopa ER well. She previously attended a physical therapy program for Parkinson's disease and this was of benefit. She reported having mild memory difficulty. No further change in her memory within recent months is reported. A B12 injection was not of benefit for her fatigue. A head MRI (August 2021) revealed scattered patchy areas of increased T2 and FLAIR signal present in the suprav (more content not included)... Normal [facility] Neurology Visit Reporton Neurology Visit Report [employer] [facility] [address] [place] [address], [address] [place] [id number] OFFICE VISIT Date of Service: 01/28/25 MR#: [id number] Acct: [id number] Name: ANTHONY CHAUDHARY Rep #: [id number] : 1955 Provider: Dr. Jac jaime MD Age/Sex: 69/F Location: [facility]. Status: Signed HPI HPI Chief Complaint: Details: Interim History: Anthony returns for follow-up visit. She has Parkinson's disease. She initially presented for evaluation of right lower extremity weakness. While horseback riding in 2020, she noticed having difficulty everting the right foot. Earlier in 2020, she had right calf cramping for which she was treated with a methylprednisolone taper and cyclobenzaprine and this resolved. Her right foot weakness improved over time and subsequently resolved. She has not had radicular pain in the right lower extremity. She had mild occasional low back pain in the past. At that time, she denied having numbness, weakness or pain in the arms or left lower extremity. She has some numbness in the right foot. 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 Due to the possibility of an L5 radiculopathy, a lumbar MRI was performed (08/2021); multilevel degenerative disc and joint changes were noted which, per her orthopedic surgery note, was most pronounced at L5-S1 causing mild bilateral foraminal narrowing at this level. She had a right L5-S1 transforaminal epidural steroid injection in September 2021; this did not produce any change in her symptoms. She was involved in horseback riding and at one point was riding daily, though in summer 2020, she reduced her riding time and later stopped riding horses. As part of her riding gear, she had worn a half chap, which produced pressure in the posterior fibular head region. She also had frequently crossed her legs when seated, and has been attempting to break that habit. 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 A vitamin B12, folate, TSH, thiamine, CMP, and ESR were unremarkable. Her her serum free light chains were mildly elevated.??? In 2021, she developed symptoms consistent with Parkinson's disease. She has had a tremor affecting the upper extremities and lower extremities. She has noticed a feeling of stiffness in her arms and legs. She has had slowing and shuffling of her gait. The slowing of her gait had worsened over time. She has developed hypophonia and micrographia. She has experienced some postural instability. She had multiple falls. She has had freezing episodes that had occurred many times daily. She was started on ropinirole in 2021; she typically had forgotten to take a midday dose of ropinirole. She had some improvement of her handwriting following initiation of ropinirole otherwise she did not notice any significant improvement of her parkinsonian symptoms. Titrating her dose of ropinirole from 1 mg twice daily to 3 mg twice daily was not of clear added benefit. Ropinirole has not been of benefit for her freezing episodes. Azilect 0.5 mg daily was not of symptomatic benefit. Her tremor and feeling of rigidity worsened further. Carbidopa/levodopa 25/100 was initiated and was of benefit however she developed a rash as a side effect to this medication. Carbidopa/levodopa 25/100 was discontinued and the rash resolved. A different formulation, carbidopa/levodopa ER 25/100, was then initiated and this has been of benefit for her mobility and has been well-tolerated. Carbidopa/levodopa ER has not been of significant benefit for her tremor. She has had improvement of her mobility since increasing her dose of carbidopa/levodopa ER 25/100. She currently takes carbidopa ER 25/100 2 tablets 3 times daily and 1 tablet nightly. She has tolerated carbidopa/levodopa ER well. She attends a physical therapy program for Parkinson's disease and is of benefit. She reported having mild memory difficulty. No further change in her memory has been noted within recent months. A B12 injection was not of benefit for her fatigue. A head MRI (August 2021) revealed scattered patchy areas of increased T2 and FLAIR signal present in the supraventricular white matter, likely representing (more content not included)... Normal [facility] NCS and/or EMG Patienton NCS and/or EMG Patient [facility] Pulmonary Services/Neurology [address] [place] [address] MR#: [id number] Acct: [id number] Name: ANTHONY CHAUDHARY Rep #: [id number] : 1955 69 From: Eloy Montgomery MD Referring Dr: Jalil Banerjee DPM Status: REG CL I Location: PSN Date: 01/02/25 Sex: F C NCS and/or EMG Patient Report Ordering Doctor: Jalil Banerjee DATE OF SERVICE: 01/02/25 Anthony presents with complaints of cramping in both feet and leg pain. She has history of Parkinson's disease. Electrodiagnostic findings: Right peroneal motor nerve demonstrates normal distal latency amplitude and conduction velocity. Left peroneal motor response is within normal limits. Normal tibial response bilaterally. Normal tibial and peroneal F???waves. H-reflex is prolonged bilaterally. Sensory responses are within normal limits. Needle EMG testing was performed the lower limbs. All muscles tested showed no evidence of denervation with normal motor unit action potentials. Electrodiagnostic impression: This a normal electrodiagnostic study in the lower limbs. There is no electrodiagnostic evidence for peripheral neuropathy or lumbosacral radiculopathy. Multi [facility] Codes Neurology Neurology Interp Codes: 59187-11 Musc test done w/n test comp (interp) (2) and 44476-66 Nrv cndj test 11-12 studies (interp) 01/02/25 1510 Date Eloy Montgomery MD CC: DPMichel Banerjee; Dr. Eloy Montgomery MD; Dr. Eleanor Armstrong, Date Dictated: 01/02/251506 Date Transcribed: 01/02/251506 Fire Operations Forester: AA Signed Normal [facility] Folates, RBCon 12-23-2024 Fol.,Hemolysate 514.0 ng/mL Normal Not Estab. [facility] Comment on above: Order Comment: Test( s) 541459-Pgk. B1, Whole Bloodwas developed and its performance characteristicsdetermined by [facility]. It has not been cleared or approvedby the Food and Drug Administration. Performed By: #### L 501.080 #### [facility] [address] [place], [address] Folate, RBC 1075 ng/mL Normal >498 [facility] Comment on above: Order Comment: Test( s) 922134-Psk. B1, Whole Bloodwas developed and its performance characteristicsdetermined by [facility]. It has not been cleared or approvedby the Food and Drug Administration. Performed By: #### L 501.080 #### [facility] [address] [facility] [place], [place], [id number] Hematocrit (Bld) [Volume fraction] 47.8 % High 34.0-46.6 [facility] Comment on above: Order Comment: Test( s) 966063-Zvb. B1, Whole Bloodwas developed and its performance characteristicsdetermined by [facility]. It has not been cleared or approvedby the Food and Drug Administration. Performed By: #### L 501.080 #### [facility] [address] [place], [address] Pablo Pena Lambda Light Chainson 12-23-2024 FR KAPPA LT CHN 15.9 mg/L Normal 3.3-19.4 [facility] Comment on above: Order Comment: Test( s) 106120-Www. B1, Whole Bloodwas developed and its performance characteristicsdetermined by [facility]. It has not been cleared or approvedby the Food and Drug Administration. Performed By: #### L 501.080 #### [facility] [address] [facility] [place], [address] FR LAMBDA LT CH 11.2 mg/L Normal 5.7-26.3 [facility] Comment on above: Order Comment: Test( s) 565089-Sem. B1, Whole Bloodwas developed and its performance characteristicsdetermined by [facility]. It has not been cleared or approvedby the Food and Drug Administration. Performed By: #### L 501.080 #### [facility] [address] [facility] [place], [address] KAPPA/LAMBDA % 1.42 Normal 0.26-1.65 [facility] Comment on above: Order Comment: Test( s) 109196-Poj. B1, Whole Bloodwas developed and its performance characteristicsdetermined by [facility]. It has not been cleared or approvedby the Food and Drug Administration. Performed By: #### L 501.080 #### [facility] [address] [place], [address] Vitamin B1, Thiamineon 12-23 VIT B1 THIAMINE 164.9 nmol/L Normal 66.5-200.0 [facility] Comment on above: Order Comment: Test( s) 860746-Ksw. B1, Whole Bloodwas developed and its performance characteristicsdetermined by [facility]. It has not been cleared or approvedby the Food and Drug Administration. Result Comment: Perf ormed at: [address] [id number] Rubber Press Tender: Az Barahona PhD, Phone: [phone] Performed at: [address] [id number] Rub[employer] Press Tender: Sherin Ignacio MD, Phone: [phone] Performed By: #### L 501.080 #### [facility] [address] [facility] [place], [address] Vitamin D 1,25-Dihydroxyon 0 12-21-2024 VIT D 1,25 DIHY 63.4 pg/mL Normal 24.8-81.5 [facility] Comment on above: Result Comment: Perf ormed at: [address] [id number] [employer] Press Tender: Sherin Ignacio MD, Phone: [phone] Performed By: #### L 3100.1725, L3130.0010, L3300.8000, L100.0500, L500.4050, L501.9520, L503.0106, L503.6150, L503.6550, L3300.0960 ####[facility] [address] [place], [address] Anion gap in Serum or Plasma Ordered By: Jac Truong on 12-18-2024 Anion gap [Moles/Vol] 12 mmol/L 5-15 [facility] BUN/creatinine ratioOrdered By: Jac Truong on 12-18-2024 Urea nitrogen/Creatinine [Mass ratio] 33.7 mg/mg High 10-20 [facility] Bilirubin, totalOrdered By: Jac Truong on 12-18-2024 Bilirubin [Mass/Vol] 0.29 mg/dL 0.00-1.30 [facility] CBC-Complete Blood Cnt No Di ffon 12-18-2024 Erythrocyte distribution width (RBC) [Ratio] 12.6 % Normal 11.6-14.6 [facility] Comment on above: Performed By: #### L 3100.1725, L3130.0010, L3300.8000, L100.0500, L500.4050, L501.9520, L503.0106, L503.6150, L503.6550, L3300.0960 ####[facility] [address], [address] Hematocrit (Bld) [Volume fraction] 39.9 % Normal 37-47 [facility] Comment on above: Performed By: #### L 3100.1725, L3130.0010, L3300.8000, L100.0500, L500.4050, L501.9520, L503.0106, L503.6150, L503.6550, L3300.0960 ####[facility] [address] [facility] [place], [address] Hemoglobin (Bld) [Mass/Vol] 13.6 g/dL Normal 12.0-15.0 [facility] Comment on above: Performed By: #### L 3100.1725, L3130.0010, L3300.8000, L100.0500, L500.4050, L501.9520, L503.0106, L503.6150, L503.6550, L3300.0960 ####[facility] [address] [facility] [place], [address] MCH (RBC) [Entitic mass] 32.6 pg High 27.0-32.0 [facility] Comment on above: Performed By: #### L 3100.1725, L3130.0010, L3300.8000, L100.0500, L500.4050, L501.9520, L503.0106, L503.6150, L503.6550, L3300.0960 ####[facility] [address] [place], [address] MCHC (RBC) [Mass/Vol] 34.1 g/dL Normal 32-36 [facility] Comment on above: Performed By: #### L 3100.1725, L3130.0010, L3300.8000, L100.0500, L500.4050, L501.9520, L503.0106, L503.6150, L503.6550, L3300.0960 ####[facility] [address] [place], [address] MCV (RBC) [Entitic vol] 95.7 fL Normal 81-99 [facility] Comment on above: Performed By: #### L 3100.1725, L3130.0010, L3300.8000, L100.0500, L500.4050, L501.9520, L503.0106, L503.6150, L503.6550, L3300.0960 ####[facility] [address] [place], [address] Platelet mean volume (Bld) [Entitic vol] 10.9 fL Normal 6.2-12.0 [facility] Comment on above: Performed By: #### L 3100.1725, L3130.0010, L3300.8000, L100.0500, L500.4050, L501.9520, L503.0106, L503.6150, L503.6550, L3300.0960 ####[facility] [address] [place], [address] Platelets (Bld) [#/Vol] 251 10*3/uL Normal 150-450 [facility] Comment on above: Performed By: #### L 3100.1725, L3130.0010, L3300.8000, L100.0500, L500.4050, L501.9520, L503.0106, L503.6150, L503.6550, L3300.0960 ####[facility] [address] [place], [address] RBC (Bld) [#/Vol] 4.17 10*6/uL Low 4.2-5.[address] [facility] Comment on above: Performed By: #### L 3100.1725, L3130.0010, L3300.8000, L100.0500, L500.4050, L501.9520, L503.0106, L503.6150, L503.6550, L3300.0960 ####[facility] [address] [place], [address] RDW SD 44.7 fl High 35.1-43.9 [facility] Comment on above: Performed By: #### L 3100.1725, L3130.0010, L3300.8000, L100.0500, L500.4050, L501.9520, L503.0106, L503.6150, L503.6550, L3300.0960 ####[facility] [address] [place], [address] WBC (Bld) [#/Vol] 4.8 10*3/uL Normal 4.4-11.0 [facility] Comment on above: Performed By: #### L 3100.1725, L3130.0010, L3300.8000, L100.0500, L500.4050, L501.9520, L503.0106, L503.6150, L503.6550, L3300.0960 ####[facility] [address] [place], [place], [id number] Carbon dioxide, total [Moles /volume] in Central venous bloodOrdered By: Jac Truong on 12-18-2024 CO2 [Moles/Vol] 26.4 mmol/L 21.0-32.0 [facility] Chloride assayOrdered By: Ra kellie Truong on 12-18-2024 Chloride [Moles/Vol] 102 mmol/L 98-108 [facility] Comprehensive Metabolic Prof ilon 12-18-2024 Albumin [Mass/Vol] 4.6 g/dL Normal 3.4-4.8 [facility] Comment on above: Performed By: #### L 3100.1725, L3130.0010, L3300.8000, L100.0500, L500.4050, L501.9520, L503.0106, L503.6150, L503.6550, L3300.0960 ####[facility] [address] [place], [place], [phone]) Albumin/Globulin [Mass ratio] 1.4 {ratio} Normal 0.9-2.4 [facility] Comment on above: Performed By: #### L 3100.1725, L3130.0010, L3300.8000, L100.0500, L500.4050, L501.9520, L503.0106, L503.6150, L503.6550, L3300.0960 ####[facility] [address] [place], [place], [phone](107) ALK PHOS 51 U/L Normal 35-104 [facility] Comment on above: Performed By: #### L 3100.1725, L3130.0010, L3300.8000, L100.0500, L500.4050, L501.9520, L503.0106, L503.6150, L503.6550, L3300.0960 ####[facility] [address] [place], [place], [id number] ALT [Catalytic activity/Vol] 9 U/L Normal <=34 [facility] Comment on above: Performed By: #### L 3100.1725, L3130.0010, L3300.8000, L100.0500, L500.4050, L501.9520, L503.0106, L503.6150, L503.6550, L3300.0960 ####[facility] [address] [place], [place], [phone](077) AST [Catalytic activity/Vol] 19 U/L Normal <=31 [facility] Comment on above: Performed By: #### L 3100.1725, L3130.0010, L3300.8000, L100.0500, L500.4050, L501.9520, L503.0106, L503.6150, L503.6550, L3300.0960 ####[facility] [address] [place], [address] Bilirubin [Mass/Vol] 0.29 mg/dL Normal 0.00-1.30 [facility] Comment on above: Performed By: #### L 3100.1725, L3130.0010, L3300.8000, L100.0500, L500.4050, L501.9520, L503.0106, L503.6150, L503.6550, L3300.0960 ####[facility] [address] [place], [address] BUN/CRE 33.7 RATIO High 10-20 [facility] Comment on above: Performed By: #### L 3100.1725, L3130.0010, L3300.8000, L100.0500, L500.4050, L501.9520, L503.0106, L503.6150, L503.6550, L3300.0960 ####[facility] [address] [place], [address] Calcium [Mass/Vol] 9.6 mg/dL Normal 7.6-11.0 [facility] Comment on above: Performed By: #### L 3100.1725, L3130.0010, L3300.8000, L100.0500, L500.4050, L501.9520, L503.0106, L503.6150, L503.6550, L3300.0960 ####[facility] [address] [place], [address] Chloride [Moles/Vol] 102 mmol/L Normal 98-108 [facility] Comment on above: Performed By: #### L 3100.1725, L3130.0010, L3300.8000, L100.0500, L500.4050, L501.9520, L503.0106, L503.6150, L503.6550, L3300.0960 ####[facility] [address] [place], [place], [id number] CO2 [Moles/Vol] 26.4 mmol/L Normal 21.0-32.0 [facility] Comment on above: Performed By: #### L 3100.1725, L3130.0010, L3300.8000, L100.0500, L500.4050, L501.9520, L503.0106, L503.6150, L503.6550, L3300.0960 ####[facility] [address] [place], [address] Creatinine [Mass/Vol] 0.62 mg/dL Low 0.70-1.20 [facility] Comment on above: Performed By: #### L 3100.1725, L3130.0010, L3300.8000, L100.0500, L500.4050, L501.9520, L503.0106, L503.6150, L503.6550, L3300.0960 ####[facility] [address] [place], [place], [id number] GAP 12 Normal 5-15 [facility] Comment on above: Performed By: #### L 3100.1725, L3130.0010, L3300.8000, L100.0500, L500.4050, L501.9520, L503.0106, L503.6150, L503.6550, L3300.0960 ####[facility] [address] [place], [place], [id number] GFR/1.73 sq M.predicted among non-blacks MDRD (S/P/Bld) [Vol rate/Area] 95 mL/min/{1.73_m2} Normal >60 [facility] Comment on above: Result Comment: mL/m in/1.73m2 CKD-EPI Creatinine Equation (2020) Performed By: #### L 3100.1725, L3130.0010, L3300.8000, L100.0500, L500.4050, L501.9520, L503.0106, L503.6150, L503.6550, L3300.0960 ####[facility] [address], [address] Globulin (S) [Mass/Vol] 3.3 g/dL Normal 2.2-4.2 [facility] Comment on above: Performed By: #### L 3100.1725, L3130.0010, L3300.8000, L100.0500, L500.4050, L501.9520, L503.0106, L503.6150, L503.6550, L3300.0960 ####[facility] [address] [place], [address] Glucose [Mass/Vol] 91 mg/dL Normal 70-99 [facility] Comment on above: Performed By: #### L 3100.1725, L3130.0010, L3300.8000, L100.0500, L500.4050, L501.9520, L503.0106, L503.6150, L503.6550, L3300.0960 ####[facility] [address] [facility] [place], [address] Potassium [Moles/Vol] 4.1 mmol/L Normal 3.3-5.1 [facility] Comment on above: Performed By: #### L 3100.1725, L3130.0010, L3300.8000, L100.0500, L500.4050, L501.9520, L503.0106, L503.6150, L503.6550, L3300.0960 ####[facility] [address] [place], [address] Sodium [Moles/Vol] 140 mmol/L Normal 133-145 [facility] Comment on above: Performed By: #### L 3100.1725, L3130.0010, L3300.8000, L100.0500, L500.4050, L501.9520, L503.0106, L503.6150, L503.6550, L3300.0960 ####[facility] [id number] [facility] [address] [place], [place], [id number] T PROT 8.0 g/dL Normal 5.9-8.4 [facility] Comment on above: Performed By: #### L 3100.1725, L3130.0010, L3300.8000, L100.0500, L500.4050, L501.9520, L503.0106, L503.6150, L503.6550, L3300.0960 ####[facility] [address] [facility]. [place], [place], [id number] Urea nitrogen [Mass/Vol] 21 mg/dL High 4-19 [facility] Comment on above: Performed By: #### L 3100.1725, L3130.0010, L3300.8000, L100.0500, L500.4050, L501.9520, L503.0106, L503.6150, L503.6550, L3300.0960 ####[facility] [address] [facility]. [place], [place], [id number] Erythrocyte distribution wid th (RBC) [Ratio]Ordered By: Jac Truong on 12-18-2024 Erythrocyte distribution width (RBC) [Entitic vol] 44.7 fL High 35.1-43.9 [facility] Erythrocyte distribution wid th ratioOrdered By: [facility] 12-[facility] Erythrocyte distribution width (RBC) [Ratio] 12.6 % 11.6-14.6 [facility] Erythrocyte distribution wid th standard deviationOrdered By: Jac [facility] on 12-18-2024 Erythrocyte distribution width (RBC) [Ratio] 44.7 fl High 35.1-43.9 [facility] Erythrocyte folate measureme nt with hematocritOrdered By: Jacjasper Truong on 12-18-2024 Hematocrit (Bld) [Volume fraction] 47.8 % High 34.0-46.6 [facility] Ferritinon 12-18-2024 Ferritin [Mass/Vol] 55 ng/mL Normal 22-[address] [facility] Comment on above: Performed By: #### L 3100.1725, L3130.0010, L3300.8000, L100.0500, L500.4050, L501.9520, L503.0106, L503.6150, L503.6550, L3300.0960 ####[facility] [address], [address] GFR/1.73 sq M.predicted quentin g non-blacks MDRD (S/P/Bld) [Vol rate/Area]Ordered By: Jac Truong on 12-18-2024 Estimated GFR (MDRD) Non-Af Amer 95 >60 [facility] Comment on above: mL/min/1.73m2 CKD-EP I Creatinine Equation (2020) Glomerular filtration rate ( GFR) estimation/1.73 sq m using serum, plasma, or whole bOrdered By: Jac Truong on 12-18-2024 GFR/1.73 sq M.predicted among non-blacks MDRD (S/P/Bld) [Vol rate/Area] 95 mL/min/{1.73_m2} >60 [facility] Comment on above: mL/min/1.73m2 CKD-EP I Creatinine Equation (2020) Hematocrit Auto (Bld) [Volum e fraction]Ordered By: Jac Truong on 12-18-2024 Hematocrit (Bld) [Volume fraction] 39.9 % 37-47 [facility] Hemoglobin measurementOrdere d By: Jac Truong on 12-18-2024 Hemoglobin (Bld) [Mass/Vol] 13.6 g/dL 12.0-15.0 [facility] Ironon 12-18-2024 Iron [Mass/Vol] 124 ug/dL Normal 50-170 [facility] Comment on above: Performed By: #### L 3100.1725, L3130.0010, L3300.8000, L100.0500, L500.4050, L501.9520, L503.0106, L503.6150, L503.6550, L3300.0960 ####[facility] [address] [place], [place], [id number] Iron (Unsp spec) [Mass/Mass] Ordered By: Jac Truong on 12-18-2024 Iron [Mass/Vol] 124 ug/dL 50-170 [facility] Iron measurement (mass/mass) Ordered By: Jac Truong on 12-18-2024 Iron (Unsp spec) [Mass/Mass] 124 ug/dL 50-170 [facility] L503.0106on 12-18-2024 Cobalamin (Vitamin B12) [Mass/Vol] 1110 pg/mL High 180-914 [facility] Comment on above: Performed By: #### L 3100.1725, L3130.0010, L3300.8000, L100.0500, L500.4050, L501.9520, L503.0106, L503.6150, L503.6550, L3300.0960 ####[facility] [address] [place], [address] Laboratory - Chemistry and C hemistry - challengeOrdered By: Jac Truong on 12-18-2024 AST [Catalytic activity/Vol] 19 U/L <32 [facility] MCV (mean corpuscular volume ) determinationOrdered By: Jac Truong on 12-18-2024 MCV (RBC) [Entitic vol] 95.7 fL 81-99 [facility] Mean corpuscular hemoglobin (MCH) determinationOrdered By: Jac Truong on 12-18-2024 MCH (RBC) [Entitic mass] 32.6 pg High 27.0-32.0 [facility] Mean corpuscular hemoglobin concentration (MCHC) determinationOrdered By: Jac Truong on 12-18-2024 MCHC (RBC) [Mass/Vol] 34.1 g/dL 32-36 [facility] Mean platelet volume determi nationOrdered By: Jac Truong on 12-18-2024 Platelet mean volume (Bld) [Entitic vol] 10.9 fL 6.2-12.0 [facility] Neurology Visit Reporton Neurology Visit Report [employer] [facility] [employer] [facility] [address], [address] [place] [address] OFFICE VISIT Date of Service: 12/18/24 MR#: [id number] Acct: [id number] Name: ANTHONY CHAUDHARY Rep #: [id number] : 1955 Provider: Dr. Jac jaime MD Age/Sex: 69/F Location: [facility]. Status: Signed with Addenda ADDENDUM by Dr. Jac Truong MD on 12/19/24 at 1229 Addendum Addendum (12/19/2024): Flurbiprofen is not available at the patient's pharmacy. He ordered for further prophy and will be discontinued. I will have her begin meloxicam 7.5 mg twice daily as needed for her lower extremity pain. 12/19/24 1229 Date Jac Truong MD cc: * Signed HPI [facility] Chief Complaint: Details: Interim History: Anthony returns for follow-up visit. She has Parkinson's disease. She initially presented for evaluation of right lower extremity weakness. While horseback riding in 2020, she noticed having difficulty everting the right foot. Earlier in 2020, she had right calf cramping for which she was treated with a methylprednisolone taper and cyclobenzaprine and this resolved. Her right foot weakness improved over time and subsequently resolved. She has not had radicular pain in the right lower extremity. She had mild occasional low back pain in the past. She denied having numbness, weakness or pain in the arms or left lower extremity. She has some numbness in the right foot. 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 Due to the possibility of an L5 radiculopathy, a lumbar MRI was performed (08/2021); multilevel degenerative disc and joint changes were noted which, per her orthopedic surgery note, was most pronounced at L5-S1 causing mild bilateral foraminal narrowing at this level. She had a right L5-S1 transforaminal epidural steroid injection in September 2021; this did not produce any change in her symptoms. She was involved in horseback riding and at one point was riding daily, though in summer 2020, she reduced her riding time and later stopped riding horses. As part of her riding gear, she had worn a half chap, which produced pressure in the posterior fibular head region. She also had frequently crossed her legs when seated, and has been attempting to break that habit. 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 A vitamin B12, folate, TSH, thiamine, CMP, and ESR were unremarkable. Her her serum free light chains were mildly elevated.??? Around October 2021, she developed symptoms consistent with Parkinson's disease. She has had a tremor affecting the upper extremities and lower extremities. She has noticed a feeling of stiffness in her arms and legs. She has had slowing and shuffling of her gait. The slowing of her gait had worsened over time. She has developed hypophonia and micrographia. She has experienced some postural instability. She had multiple falls. She has had freezing episodes that had occurred many times daily. She has never been treated with neuroleptics or metoclopramide. Her sister has Parkinson's disease. In January 2022, she was started on ropinirole; she typically had forgotten to take a midday dose of ropinirole. She had some improvement of her handwriting following initiation of ropinirole otherwise she has not noticed any significant improvement of her parkinsonian symptoms. Titrating her dose of ropinirole from 1 mg twice daily to 3 mg twice daily was not of clear added benefit. Ropinirole has not been of benefit for her freezing episodes. Azilect 0.5 mg daily was not of symptomatic benefit. Her tremor and feeling of rigidity worsened further. Carbidopa/levodopa 25/100 was initiated and was of benefit however she developed a rash as a side effect to this medication. Carbidopa/levodopa 25/100 was discontinued and the rash resolved. A different formulation, carbidopa/levodopa ER 25/100, was then initiated and this has been of benefit for her mobility and has been well-tolerated. Carbidopa/levodopa ER has not been of significant benefit for her tremor. She has had improvement of her mobility since increasing her dose of carbidopa/levodopa ER 25/100 (more content not included)... Normal [facility] Platelet countOrdered By: Ra kellie Truong on 12-18-2024 Platelets (Bld) [#/Vol] 251 10*3/uL 150-450 [facility] Potassium (Unsp spec) [Mass/ Vol]Ordered By: Jac Truong on 12-18-2024 Potassium [Moles/Vol] 4.1 mmol/L 3.3-5.1 [facility] Potassium measurement (mass/ volume)Ordered By: Jac Truong on 12-18-2024 Potassium (Unsp spec) [Mass/Vol] 4.1 mmol/L 3.3-5.1 [facility] RBC Auto (Bld) [#/Vol]Ordere d By: Jac Truong on 12-18-2024 RBC (Bld) [#/Vol] 4.17 10*6/uL Low 4.2-5.[address] [facility] Serum creatinine measurement (mass/volume)Ordered By: Jac Truong on 12-18-2024 Creatinine [Mass/Vol] 0.62 mg/dL Low 0.70-1.20 [facility] Serum globulin measurementOr dered By: Jac Truong on 12-18-2024 Globulin (S) [Mass/Vol] 3.3 g/dL 2.2-4.2 [facility] Serum glucose measurement (m ass/volume)Ordered By: Jac Truong on 12-18-2024 Glucose [Mass/Vol] 91 mg/dL 70-99 [facility] Serum immunoglobulin kappa l ight chains/immunoglobulin lambda light chains mass ratioOrdered By: Jac Truong on 12-18-2024 Immunoglobulin light chains.kappa/Immunoglo bulin light chains.lambda (S) [Mass ratio] 1.42 0.26-1.65 [facility] Serum or plasma alanine benitez otransferase (ALT) measurementOrdered By: Jac Truong on 12-18-2024 ALT [Catalytic activity/Vol] 9 U/L <35 [facility] Serum or plasma albumin reg urement (mass/volume)Ordered By: Jac Truong on 12-18-2024 Albumin [Mass/Vol] 4.6 g/dL 3.4-4.8 [facility] Serum or plasma albumin/glob ulin mass ratioOrdered By: Jacjasper Truong on 12-18-2024 Albumin/Globulin [Mass ratio] 1.4 {ratio} 0.9-2.4 [facility] Serum or plasma alkaline nina sphatase measurementOrdered By: Jac Truong on 12-18-2024 ALP [Catalytic activity/Vol] 51 U/L 35-104 [facility] Serum or plasma calcitriol m easurement (mass/volume)Ordered By: Jac Truong on 12-18-2024 1,25-dihydroxyvitamin D3 [Mass/Vol] 63.4 pg/mL 24.8-81.5 [facility] Comment on above: Performed at: [address] [id number] Director: Sherin Ignacio MD, Phone: [phone] Serum or plasma calcium reg urement (mass/volume)Ordered By: Jac Truong on 12-18-2024 Calcium [Mass/Vol] 9.6 mg/dL 7.6-11.0 [facility] Serum or plasma ferritin chip surement (mass/volume)Ordered By: Jac Truong on 12-18-2024 Ferritin [Mass/Vol] 55 ng/mL 22-[address] [facility] Serum or plasma immunoglobul in kappa light chains measurement (mass/volume)Ordered By: Jac Truong on 12-18-2024 Immunoglobulin light chains.kappa [Mass/Vol] 15.9 mg/L 3.3-19.4 [facility] Serum or plasma thiamine chip surement (mass/volume)Ordered By: Jac Truong on 12-18-2024 Thiamine [Mass/Vol] 164.9 nmol/L 66.5-200.0 [facility] Comment on above: Performed at: - [facility] [address] [id number] Director: Az Barahona PhD, Phone: [phone] at: - [facility] [address] [id number] Director: Sherin Ignacio MD, Phone: [phone] Serum or plasma urea nitroge n measurement (mass/volume)Ordered By: Jac Truong on 12-18-2024 Urea nitrogen [Mass/Vol] 21 mg/dL High 4-19 [facility] Sodium levelOrdered By: Gasper Truong on 12-18-2024 Sodium [Moles/Vol] 140 mmol/L 133-145 [facility] TSH DL <= 0.005 mIU/L QnOrde red By: Jac Truong on 12-18-2024 Thyroid Stimulating Hormone (TSH) 1.550 uIU/mL 0.300-4.20 0 [facility] TSH Qn 1.550 uIU/mL 0.300-4.20 0 [facility] Thyroid Stim Hormone (TSH)on 12-18-2024 TSH 1.550 uIU/mL Normal 0.300-4.20 0 [facility] Comment on above: Performed By: #### L 3100.1725, L3130.0010, L3300.8000, L100.0500, L500.4050, L501.9520, L503.0106, L503.6150, L503.6550, L3300.0960 ####[facility] [address], [address] Total proteinOrdered By: Pepe Truong on 12-18-2024 Protein [Mass/Vol] 8.0 g/dL 5.9-8.4 [facility] Vitamin B12 ser/plasOrdered By: Jac Truong on 12-18-2024 Cobalamin (Vitamin B12) [Mass/Vol] 1110 pg/mL High 180-914 [facility] White blood cell (WBC) count Ordered By: Jac Truong on 12-18-2024 WBC (Bld) [#/Vol] 4.8 10*3/uL 4.4-11.0 [facility] Neurology Visit Reporton Neurology Visit Report [facility] [address] [facility] [address], [address] [place] [address] OFFICE VISIT Date of Service: 11/26/24 MR#: [id number] Acct: [id number] Name: ANTHONY CHAUDHARY Rep #: [id number] : 1955 Provider: Dr. Jac jaime MD Age/Sex: 69/F Location: [facility]. Status: Signed HPI [facility] Chief Complaint: Details: Interim History: Anthony returns for follow-up visit. She has Parkinson's disease. She initially presented for evaluation of right lower extremity weakness. While horseback riding in 2020, she noticed having difficulty everting the right foot. Earlier in 2020, she had developed some right calf region cramping for which she was treated with a methylprednisolone taper and cyclobenzaprine and this apparently resolved. Her right foot weakness improved over time and subsequently resolved. She has not had radicular pain in the right lower extremity. She had mild occasional low back pain in the past. She denied having numbness, weakness or pain in the arms or left lower extremity. She has some numbness in the right foot. 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 Due to the possibility of an L5 radiculopathy, a lumbar MRI was performed (08/2021); multilevel degenerative disc and joint changes were noted which, per her orthopedic surgery note, was most pronounced at L5-S1 causing mild bilateral foraminal narrowing at this level. She had a right L5-S1 transforaminal epidural steroid injection in September 2021; this did not produce any change in her symptoms. She was involved in horseback riding and at one point was riding daily, though in summer 2020, she reduced her riding time and later stopped riding horses. As part of her riding gear, she had worn a half chap, which produced pressure in the posterior fibular head region. She also had frequently crossed her legs when seated, and has been attempting to break that habit. 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 A vitamin B12, folate, TSH, thiamine, CMP, and ESR were unremarkable. Her her serum free light chains were mildly elevated.??? Around October 2021, she developed symptoms consistent with Parkinson's disease. She has had a tremor affecting the upper extremities and lower extremities. She has noticed a feeling of stiffness in her arms and legs. She has had slowing and shuffling of her gait. The slowing of her gait had worsened over time. She has developed hypophonia and micrographia. She has experienced some postural instability. She had multiple falls. She has had freezing episodes that had occurred many times daily. She has never been treated with neuroleptics or metoclopramide. Her sister has Parkinson's disease. In January 2022, she was started on ropinirole; she typically had forgotten to take a midday dose of ropinirole. She had some improvement of her handwriting following initiation of ropinirole otherwise she has not noticed any significant improvement of her parkinsonian symptoms. Titrating her dose of ropinirole from 1 mg twice daily to 3 mg twice daily was not of clear added benefit. Ropinirole has not been of benefit for her freezing episodes. Azilect 0.5 mg daily was not of symptomatic benefit. Her tremor and feeling of rigidity worsened further. Carbidopa/levodopa 25/100 was initiated and was of benefit however she developed a rash as a side effect to this medication. Carbidopa/levodopa 25/100 was discontinued and the rash resolved. A different formulation, carbidopa/levodopa ER 25/100, was then initiated and this has been of benefit for her mobility and has been well-tolerated. Carbidopa/levodopa ER has not been of significant benefit for her tremor. She has had improvement of her mobility since increasing her dose of carbidopa/levodopa ER 25/100 to 2 tablets 3 times daily however she notices a wearing off effect at the end of the day and has painful stiffness in both lower extremities at night. She has tolerated carbidopa/levodopa ER well. She attends a physical therapy program for Parkinson's disease and this has been of benefit. She reported having mild memory difficulty. She feels that her memory has improved within recent months. A B (more content not included)... Normal [facility] Neurology Visit Reporton Neurology Visit Report [facility] [address] [facility] [address], [address] [place] [address] OFFICE VISIT Date of Service: 09/17/24 MR#: [id number] Acct: [id number] Name: ANTHONY CHAUDHARY Rep #: [id number] : 1955 Provider: Dr. Jac jaime MD Age/Sex: 69/F Location: [facility] Status: Signed HPI HPI Chief Complaint: Details: Interim History: Anthony returns for follow-up visit. She has Parkinson's disease. She initially presented for evaluation of right lower extremity weakness. While horseback riding in January 2021, she noticed having difficulty everting the right foot. Earlier in January 2021, she had developed some right calf region cramping for which she was treated with a methylprednisolone taper and cyclobenzaprine and this apparently resolved. Her right foot weakness improved over time and subsequently resolved. She has not had radicular pain in the right lower extremity. She had mild occasional low back pain in the past. She denied having numbness, weakness or pain in the arms or left lower extremity. She has some numbness in the right foot. 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 Due to the possibility of an L5 radiculopathy, a lumbar MRI was performed (08/2021); multilevel degenerative disc and joint changes were noted which, per her orthopedic surgery note, was most pronounced at L5-S1 causing mild bilateral foraminal narrowing at this level. She had a right L5-S1 transforaminal epidural steroid injection in September 2021; this did not produce any change in her symptoms. She was involved in horseback riding and at one point was riding daily, though in summer 2020, she reduced her riding time and later stopped riding horses. As part of her riding gear, she had worn a half chap, which produced pressure in the posterior fibular head region. She also had frequently crossed her legs when seated, and has been attempting to break that habit. 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 A vitamin B12, folate, TSH, thiamine, CMP, and ESR were unremarkable. Her her serum free light chains were mildly elevated.??? Around October 2021, she reported the development of symptoms consistent with Parkinson's disease. She has had a tremor affecting the upper extremities and lower extremities. She has noticed a feeling of stiffness in her arms and legs. She has had slowing and shuffling of her gait. The slowing of her gait had worsened over time. She has developed hypophonia and micrographia. She has experienced some postural instability. She had multiple falls. She has had freezing episodes that had occurred many times daily. She has never been treated with neuroleptics or metoclopramide. Her sister has Parkinson's disease. In January 2022, she was started on ropinirole; she typically had forgotten to take a midday dose of ropinirole. She had some improvement of her handwriting following initiation of ropinirole otherwise she has not noticed any significant improvement of her parkinsonian symptoms. Titrating her dose of ropinirole from 1 mg twice daily to 3 mg twice daily was not of clear added benefit. Ropinirole has not been of benefit for her freezing episodes. Azilect 0.5 mg daily was not of symptomatic benefit. Her tremor and feeling of rigidity worsened further. Carbidopa/levodopa 25/100 was initiated and was of benefit however she developed a rash as a side effect to this medication. Carbidopa/levodopa 25/100 was discontinued and the rash resolved. A different formulation, carbidopa/levodopa ER 25/100, was then initiated and this has been of benefit for her mobility and has been well-tolerated. Carbidopa/levodopa ER has not been of significant benefit for her tremor. She has had improvement of her mobility since increasing her dose of carbidopa/levodopa ER 25/100 to 2 tablets 3 times daily. She is tolerating carbidopa/levodopa ER well. She attends a physical therapy program for Parkinson's disease and this has been of benefit. She reported having mild memory difficulty. A B12 injection was not of benefit for her fatigue. A head MRI (August 2021) revealed scattered patchy areas of increased T2 and FLAIR signal present in the sup (more content not included)... Normal [facility] Neurology Visit Reporton Neurology Visit Report [employer] [facility] [address] [facility], [address] [place] [address] OFFICE VISIT Date of Service: 05/15/24 MR#: [id number] Acct: [id number] Name: ANTHONY CHAUDHARY Rep #: [id number] : 1955 Provider: Dr. Jac jaime MD Age/Sex: 68/F Location: [facility]. Status: Signed [facility] Chief Complaint: Details: Interim History: Anthony returns for follow-up visit. She has Parkinson's disease. She initially presented for evaluation of right lower extremity weakness. While horseback riding in January 2021, she noticed having difficulty everting the right foot. Earlier in January 2021, she had developed some right calf region cramping for which she was treated with a methylprednisolone taper and cyclobenzaprine and this apparently resolved. Her right foot weakness improved over time and subsequently resolved. She has not had radicular pain in the right lower extremity. She had mild occasional low back pain in the past. She denied having numbness, weakness or pain in the arms or left lower extremity. She denied having numbness in the right leg. 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 Due to the possibility of an L5 radiculopathy, a lumbar MRI was performed (08/2021); multilevel degenerative disc and joint changes were noted which, per her orthopedic surgery note, was most pronounced at L5-S1 causing mild bilateral foraminal narrowing at this level. She had a right L5-S1 transforaminal epidural steroid injection in September 2021; this did not produce any change in her symptoms. She was involved in horseback riding and at one point was riding daily, though in summer 2020, she reduced her riding time and later stopped riding horses. As part of her riding gear, she had worn a half chap, which produced pressure in the posterior fibular head region. She also had frequently crossed her legs when seated, and has been attempting to break that habit. 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 A vitamin B12, folate, TSH, thiamine, CMP, and ESR were unremarkable. Her her serum free light chains were mildly elevated.??? Around October 2021, she reported the development of symptoms consistent with Parkinson's disease. She has had a tremor affecting the upper extremities and lower extremities. She has noticed a feeling of stiffness in her arms and legs. She has had slowing and shuffling of her gait. The slowing of her gait worsened over time. She has developed hypophonia and micrographia. She has experienced some postural instability. She had multiple falls. She has had freezing episodes that have occurred many times daily. She has never been treated with neuroleptics or metoclopramide. Her sister has Parkinson's disease. In January 2022, she was started on ropinirole; she typically had forgotten to take a midday dose of ropinirole. She had some improvement of her handwriting following initiation of ropinirole otherwise she has not noticed any significant improvement of her parkinsonian symptoms. Titrating her dose of ropinirole from 1 mg twice daily to 3 mg twice daily was not of clear added benefit. Ropinirole has not been of benefit for her freezing episodes. Azilect 0.5 mg daily was not of symptomatic benefit. Her tremor and feeling of rigidity worsened further. Carbidopa/levodopa 25/100 was initiated and was of benefit however she developed a rash as a side effect to this medication. Carbidopa/levodopa 25/100 was discontinued and the rash resolved. A different formulation, carbidopa/levodopa ER 25/100, was then initiated and this has been of benefit for her mobility and has been well-tolerated. Carbidopa/levodopa ER has not been of significant benefit for her tremor. 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 She has been taking omega-3. She attends a physical therapy program for Parkinson's disease and this has been of benefit. She reported having mild memory difficulty. She is accompanied by her today who reports that her memory has improved slightly within recent months. A B12 injection was not of benefit for her fatigue. A head MRI (Decem (more content not included)... Normal [facility] HEPATITIS C ANTIBODY ([id number]) Ordered By: Logging Superintendent on 03-18-2023 HCV Ab Signal/Cutoff IA [Rel units/Vol] Non-Reactive Normal [facility]; [facility] Work Phone: Comment on above: HCV antibody alone d oes not differentiate between previouslyresolved infection and active infection. Equivocal and ReactiveHCV antibody results should be followed up with an HCV RNA testto support the diagnosis of active HCV infection. PATIENT NOT FASTINGP ERFORMED BY: [facility] HospitalBaila GamesBenjamin Ville [id number] [facility] [id number] C-REACTIVE PROTEIN ([id number])Or dered By: Logging Superintendent on 02-21-2023 CRP [Mass/Vol] mg/L Normal 0-10 [facility]; [facility] Work Phone: Comment on above: PATIENT WAS FASTINGP ERFORMED BY: [id number] RamírezMoji [employer] [id number] CALCIFIDIOL (89411) VIT D 25 Ordered By: Logging Superintendent on 02-21-2023 25-hydroxyvitamin D [Mass/Vol] 88.1 ng/mL Normal 30.0-100.0 [facility]; [facility] Work Phone: Comment on above: Vitamin D deficiency has been defined by the [facility] and an Endocrine Society practice guideline as alevel of serum 25-OH vitamin D less than 20 ng/mL (1,2).The Endocrine Society went on to further define vitamin Dinsufficiency as a level between 21 and 29 ng/mL (2).1. IOM (Marks of Medicine). 2010. Dietary reference intakes for calcium and D. [place]: The National Academies Press.2. Mona MF, Angelia NC, Clary MARC, et al. Evaluation, treatment, and prevention of vitamin D deficiency: an Endocrine Society clinical practice guideline. JCEM. 2010; 96(7):1911-30. PATIENT WAS FASTINGP ERFORMED BY: [id number] [facility] [id number] CBC (AUTO) ([id number])Ordered By : Logging Superintendent on 02-21-2023 Erythrocyte distribution width (RBC) [Ratio] 12.3 % Normal 11.7-15.4 [facility]; [facility] Work Phone: Comment on above: PATIENT WAS FASTINGP ERFORMED BY: [id number] [facility] [id number] Hematocrit (Bld) [Volume fraction] 36.3 % Normal 34.0-46.6 [facility]; [facility] Work Phone: Comment on above: PATIENT WAS FASTINGP ERFORMED BY: [employer]co Vpjcko9241 Ramírez RoadDublin [place] [id number] Hemoglobin (Bld) [Mass/Vol] 11.9 g/dL Normal 11.1-15.9 [facility]; [facility] Work Phone: Comment on above: PATIENT WAS FASTINGP ERFORMED BY: [facility] Vgzpmx6176 Ramírez RoadDublin [place] [id number] MCH (RBC) [Entitic mass] 32.2 pg Normal 26.6-33.0 [facility]; [facility] Work Phone: Comment on above: PATIENT WAS FASTINGP ERFORMED BY: [facility] Tqawhb2274 Ramírez RoadDublin [place] [id number] MCHC (RBC) [Mass/Vol] 32.8 g/dL Normal 31.5-35.7 [facility]; [facility] Work Phone: Comment on above: PATIENT WAS FASTINGP ERFORMED BY: [facility] Wabufg4910 Ramí[address] Roadblin [place] [id number] MCV (RBC) [Entitic vol] 98 fL Abnormal 79-97 [facility]; [facility] Work Phone: Comment on above: PATIENT WAS FASTINGP ERFORMED BY: [facility] Bueare2858 Ramírez RoadDublin [place] [id number] Platelets (Bld) [#/Vol] 219 10*3/uL Normal 150-450 [facility]; [facility] Work Phone: Comment on above: PATIENT WAS FASTINGP ERFORMED BY: [facility] Zduqqs4779 Ramírez RoadDublin [place] [id number] RBC (Bld) [#/Vol] 3.69 10*6/uL Abnormal 3.77-5.28 [facility] Internal Medicine; [facility] Work Phone: Comment on above: PATIENT WAS FASTINGP ERFORMED BY: [facility] Sjpejm0955 Ramírez RoadDublin [place] [id number] WBC (Bld) [#/Vol] 4.1 10*3/uL Normal 3.4-10.8 [facility]; [facility] Work Phone: Comment on above: PATIENT WAS FASTINGP ERFORMED BY: HUSAM [facility] Avnfhe3687 Ramírez RoadDublin [place] [id number] METABOLIC PANEL, COMPREHENSI VE ([id number])Ordered By: Logging Superintendent on 02-21-2023 Albumin [Mass/Vol] 4.4 g/dL Normal 3.8-4.8 [facility]; [facility] Work Phone: Comment on above: PATIENT WAS FASTINGP ERFORMED BY: HUSAM [facility] Rooihg0400 Ramí[address] RoadDublin [place] [id number] Albumin/Globulin [Mass ratio] 1.5 {ratio} Normal 1.2-2.2 [facility]; [facility] Work Phone: Comment on above: PATIENT WAS FASTINGP ERFORMED BY: HUSAM [facility] Rdktjc8397 Ramírez RoadDublin [place] [id number] ALP [Catalytic activity/Vol] 45 U/L Normal 44-121 [facility]; [facility] Work Phone: Comment on above: PATIENT WAS FASTINGP ERFORMED BY: HUSAM [facility] Dhzanx7615 Ramírez RoadDublin [place] [id number] ALT [Catalytic activity/Vol] 20 U/L Normal 0-32 [facility]; [facility] Work Phone: Comment on above: PATIENT WAS FASTINGP ERFORMED BY: CB [facility] Jmpmnq0663 Ramí[address] RoadDublin [place] [id number] AST [Catalytic activity/Vol] 22 U/L Normal 0-40 [facility]; [facility] Work Phone: Comment on above: PATIENT WAS FASTINGP ERFORMED BY: CB [facility] Irmmac3579 [address] RoadDublin [place] [id number] Bilirubin [Mass/Vol] 0.3 mg/dL Normal 0.0-1.2 [facility] Internal [facility]; [facility] Work Phone: Comment on above: PATIENT WAS FASTINGP ERFORMED BY: CB [facility] Jiwire0307 [address] RoadDublin [place] [id number] Calcium [Mass/Vol] 9.7 mg/dL Normal 8.7-10.3 [facility]; [facility] Work Phone: Comment on above: PATIENT WAS FASTINGP ERFORMED BY: HUSAM [facility] Ozhfxc6117 [address] RoadDublin [place] [id number] Chloride [Moles/Vol] 103 mmol/L Normal 96-106 [facility]; [facility] Work Phone: Comment on above: PATIENT WAS FASTINGP ERFORMED BY: HUSAM [facility] Iljlgn2872 Ramí[address] RoadDublin [place] [id number] CO2 [Moles/Vol] 25 mmol/L Normal 20-29 [facility] Internal [facility]; [facility] Work Phone: Comment on above: PATIENT WAS FASTINGP ERFORMED BY: HUSAM [facility] Mvnfio8083 Ramírez RoadC[facility] [id number] Creatinine [Mass/Vol] 0.67 mg/dL Normal 0.57-1.00 [facility]; [facility] Work Phone: Comment on above: PATIENT WAS FASTINGP ERFORMED BY: HUSAM [facility] Szuncn[address] [facility] [id number] GFR/1.73 sq M.predicted among non-blacks MDRD (S/P/Bld) [Vol rate/Area] 95 mL/min/{1.73_m2} Normal Comprehens e [facility]; [facility] Work Phone: Comment on above: PATIENT WAS FASTINGP ERFORMED BY: [facility] Nrortc1404 Ramírez RoadDublin [place] [id number] Globulin (S) [Mass/Vol] 2.9 g/dL Normal 1.5-4.5 [facility]; [facility] Work Phone: Comment on above: PATIENT WAS FASTINGP ERFORMED BY: HUSAM [facility] Ompgor6699 Ramírez RoadDublin [place] [id number] Glucose [Mass/Vol] 102 mg/dL Abnormal 70-99 Compre hensive [facility]; [facility] Work Phone: Comment on above: PATIENT WAS FASTINGP ERFORMED BY: CB [facility] Erncjb6223 [address] RoadDublin [place] [id number] Potassium [Moles/Vol] 4.3 mmol/L Normal 3.5-5.2 [facility]; [facility] Work Phone: Comment on above: PATIENT WAS FASTINGP ERFORMED BY: CB [facility] Uhoyih7381 [address] RoadDublin [place] [id number] Protein [Mass/Vol] 7.3 g/dL Normal 6.0-8.5 [facility]; [facility] Work Phone: Comment on above: PATIENT WAS FASTINGP ERFORMED BY: CB [facility] Frpwqh8734 Ramí[address] RoadDublin [place] [id number] Sodium [Moles/Vol] 141 mmol/L Normal 134-144 [facility]; [facility] Work Phone: Comment on above: PATIENT WAS FASTINGP ERFORMED BY: CB [facility] Syztmp9896 [address] RoadDublin [place] [id number] Urea nitrogen [Mass/Vol] 20 mg/dL Normal 8-27 [facility]; [facility] Work Phone: Comment on above: PATIENT WAS FASTINGP ERFORMED BY: CB [facility] Bnoieu1347 [address] RoadDublin [place] [id number] Urea nitrogen/Creatinine [Mass ratio] 30 mg/mg Abnormal 12-28 [facility]; [facility] Work Phone: Comment on above: PATIENT WAS FASTINGP ERFORMED BY: CB [facility] Mftfek4112 [address] RoadDublin [place] [id number] SED RATE ERYTHROCYTE ([id number]) Ordered By: Logging Superintendent on 02-21-2023 ESR (Bld) [Velocity] 12 mm/h Normal 0-40 [facility]; [facility] Work Phone: Comment on above: PATIENT WAS FASTINGP ERFORMED BY: CB [facility] Ptlzat3711 Ramí[address] RoadDublin [place] [id number] TSH ([id number])Ordered By: Syste m Manager Diabetes on 02-21-2023 TSH Qn 1.060 {uIU/mL} Normal 0.450-4.50 0 [facility]; [facility] Work Phone: Comment on above: PATIENT WAS FASTINGP ERFORMED BY: EuclidWeisman Children's Rehabilitation HospitalDyfcst[address] [place] [address] [id number] VITAMIN B-12 (CYANOCOBALAMIN ) ([id number])Ordered By: Logging Superintendent on 02-21-2023 Cobalamin (Vitamin B12) [Mass/Vol] 965 pg/mL Normal 232-1245 [facility]; [facility] Work Phone: Comment on above: PATIENT WAS FASTINGP ERFORMED BY: [employer] [facility] [id number] Albumin Elph [Mass/Vol]on Albumin [Mass/Vol] 3.9 g/dL 2.9-4.4 [facility] Work Phone: Interpretation of serum or p lasma protein pattern by immunofixation (narrative resulton 03-04-2022 Protein Fractions Immunofixation Jorge [Interp] See comment [facility] Work Phone: Comment on above: Result: Not Observed Iron measurement (mass/mass) on 03-04-2022 Iron (Unsp spec) [Mass/Mass] 103 ug/dL 50-170 [facility] Work Phone: Laboratory - Chemistry and C hemistry - challengeon 03-04-2022 Magnesium [Mass/Vol] 1.9 mg/dL 1.6-2.6 [facility] Work Phone: No Panel Informationon 03-04 Addendum Document Comment . [facility] Work Phone: Comment on above: Protein electrophore sis scan will follow via computer,mail, or clerk television production delivery.Performed at: [facility] [employer] [address] [employer] [id number] Director: Az Barahona PhD, Phone: [phone] Serum lpezv-6-afchzdfi measu rement by electrophoresison 03-04-2022 Alpha 1 globulin Elph [Mass/Vol] 0.3 g/dL 0.0-0.4 [facility] Work Phone: Alpha 1 globulin Elph [Mass/Vol] 0.6 g/dL 0.4-1.0 [facility] Work Phone: Serum globulin measurement ( mass/volume)on 03-04-2022 Globulin (S) [Mass/Vol] 3.2 g/dL 2.2-3.9 [facility] Work Phone: Serum or plasma IgA measurem ent (mass/volume)on 03-04-2022 IgA [Mass/Vol] 249 mg/dL 87-352 [facility] Work Phone: Serum or plasma IgG measurem ent (mass/volume)on 03-04-2022 IgG [Mass/Vol] 1429 mg/dL [phone] [facility] Work Phone: Serum or plasma IgM measurem ent (mass/volume)on 03-04-2022 IgM [Mass/Vol] 158 mg/dL 26-217 [facility] Work Phone: Serum or plasma beta globuli n measurement by electrophoresis (mass/volume)on 03-04-2022 Beta globulin Elph [Mass/Vol] 1.1 g/dL 0.7-1.3 [facility] Work Phone: Serum or plasma ferritin chip surement (mass/volume)on 03-04-2022 Ferritin [Mass/Vol] 27 ng/mL 8-[address] [facility] Work Phone: Serum or plasma gamma globul in measurement by electrophoresis (mass/volume)on 03-04-2022 Gamma globulin Elph [Mass/Vol] 1.3 g/dL 0.4-1.8 [facility] Work Phone: Serum or plasma immunoelectr ophoresis interpretation (nominal result)on 03-04-2022 Interpretation IEP [Interp] Comment . [facility] Work Phone: Comment on above: No monoclonality det ected. Thin prep Papanicolaou smear with manual screeningon 03-04-2022 Thin prep Papanicolaou smear with manual screening 1.3 0.7-1.7 [facility] Work Phone: Total protein bloodon 2021 Protein [Mass/Vol] 7.1 g/dL 6.0-8.5 [facility] Work Phone: Basophil percentageon 2021 Bilirubin [Mass/Vol] 0.50 mg/dL 0.20-1.00 [facility] Work Phone: Comment on above: For patients on eltr ombopag therapy, use of Dimension [place] TBIL is not recommended. Chloride [Moles/Vol] 104 mmol/L 98-107 [facility] Work Phone: Glucose [Mass/Vol] 93 mg/dL 74-106 [facility] Work Phone: Potassium [Moles/Vol] 3.9 mmol/L 3.5-5.1 [facility] Work Phone: Protein [Mass/Vol] 8.0 g/dL 6.4-8.2 [facility] Work Phone: Sodium [Moles/Vol] 139 mmol/L 136-145 [facility] Work Phone: WBC (Bld) [#/Vol] 3.3 10*3/uL 4.4-11.0 [facility] Work Phone: Blood erythrocytes count (nu mber/volume)on 01-22-2022 RBC (Bld) [#/Vol] 3.86 10*6/uL 4.2-5.[address] [facility] Work Phone: Blood hemoglobin measurement (mass/volume)on 01-22-2022 Hemoglobin (Bld) [Mass/Vol] 12.6 g/dL 12.0-15.0 [facility] Work Phone: Blood platelet mean volumeon 01-22-2022 Platelet mean volume (Bld) [Entitic vol] 10.5 fL 6.2-12.0 [facility] Work Phone: Determination of erythrocyte mean corpuscular volume (MCV)on 01-22-2022 MCV (RBC) [Entitic vol] 97.4 fL 81-99 [facility] Work Phone: Erythrocyte sedimentation ra bryson 01-22-2022 ESR (Bld) [Velocity] 12 mm/h 0-30 [facility] Work Phone: Hematocrit Auto (Bld) [Volum e fraction]on 01-22-2022 Hematocrit (Bld) [Volume fraction] 37.6 % 37-47 [facility] Work Phone: Laboratory - Chemistry and C hemistry - challengeon 01-22-2022 ALP [Catalytic activity/Vol] 41 U/L 45-117 [facility] Work Phone: ALT [Catalytic activity/Vol] 21 U/L 13-56 [facility] Work Phone: CO2 [Moles/Vol] 29.0 mmol/L 21.0-32.0 [facility] Work Phone: Cobalamin (Vitamin B12) [Mass/Vol] 588 pg/mL 211-911 [facility] Work Phone: Globulin (S) [Mass/Vol] 4.1 g/dL 2.2-4.2 [facility] Work Phone: Urea nitrogen/Creatinine [Mass ratio] 29.1 mg/mg 10-20 [facility] Work Phone: Laboratory - Hematology and Cell countson 01-22-2022 Erythrocyte distribution width (RBC) [Entitic vol] 46.4 fL 35.1-43.9 [facility] Work Phone: Erythrocyte distribution width (RBC) [Ratio] 13.0 % 11.6-14.6 [facility] Work Phone: MCH (RBC) [Entitic mass] 32.6 pg 27.0-32.0 [facility] Work Phone: MCHC Auto (RBC) [Mass/Vol]on 01-22-2022 MCHC (RBC) [Mass/Vol] 33.5 g/dL 32-36 [facility] Work Phone: No Panel Informationon 01-22 Estimated GFR (MDRD) Amer 88 mL/min >60 [facility] Work Phone: Comment on above: GFR Calc Estimated GFR (MDRD) Non-Af Amer 73 mL/min >60 [facility] Work Phone: Comment on above: Non- GFR Calc Free Lambda Light Chains, Quant 14.8 mg/L 5.7-26.3 [facility] Work Phone: Thyroid Stimulating Hormone (TSH) 2.34 uIU/mL 0.358-3.74 [facility] Work Phone: Whole Blood Vitamin B1 Level 157.5 nmol/L 66.5-200.0 [facility] Work Phone: Comment on above: Performed at: [address] [id number] Director: Az Barahona PhD, Phone: [phone] at: [facility] [address] [id number] Director: Sherin Ignacio MD, Phone: [phone] Platelets bldon 01-22-2022 Platelets (Bld) [#/Vol] 287 10*3/uL 150-450 [facility] Work Phone: Serum immunoglobulin kappa l ight chains/immunoglobulin lambda light chains mass ratioon 01-22-2022 Immunoglobulin light chains.kappa/Immunoglo bulin light chains.lambda (S) [Mass ratio] 1.38 0.26-1.65 [facility] Work Phone: Serum or plasma albumin reg urement (mass/volume)on 01-22-2022 Albumin [Mass/Vol] 3.9 g/dL 3.2-5.0 [facility] Work Phone: Serum or plasma albumin/glob ulin mass ratioon 01-22-2022 Albumin/Globulin [Mass ratio] 1.0 {ratio} 0.9-2.4 [facility] Work Phone: Serum or plasma calcium reg urement (mass/volume)on 01-22-2022 Calcium [Mass/Vol] 9.5 mg/dL 8.5-10.1 [facility] Work Phone: Serum or plasma creatinine m easurement (mass/volume)on 01-22-2022 Creatinine [Mass/Vol] 0.83 mg/dL 0.55-1.02 [facility] Work Phone: Comment on above: The validity of the calculated GFR & GFRAA in patients over 70 years has not been determined. Clinical correlation is essential. Serum or plasma folate measu rement (mass/volume)on 01-22-2022 Folate [Mass/Vol] 56.70 ng/mL 3.1-55.4 [facility] Work Phone: Serum or plasma immunoglobul in kappa light chains measurement (mass/volume)on 01-22-2022 Immunoglobulin light chains.kappa [Mass/Vol] 20.4 mg/L 3.3-19.4 [facility] Work Phone: Serum or plasma urea nitroge n measurement (mass/volume)on 01-22-2022 Urea nitrogen [Mass/Vol] 24 mg/dL 7-18 [facility] Work Phone: Thin prep Papanicolaou smear with manual screeningon 01-22-2022 Thin prep Papanicolaou smear with manual screening 17 U/L 15-37 [facility] Work Phone: Thin prep Papanicolaou smear with manual screening 6 5-15 [facility] Work Phone: MAGNESIUM ([id number])Ordered By: Logging Superintendent on 11-02-2021 Magnesium [Mass/Vol] 2.2 mg/dL Normal 1.6-2.3 Comp rehensive [facility]; [facility] Work Phone: Comment on above: PATIENT NOT FASTINGP ERFORMED BY: HUSAM Couch6370 RamírezWestern [facility] Center [id number] METABOLIC PANEL, BASIC ([id number])Ordered By: Logging Superintendent on 11-02-2021 Calcium [Mass/Vol] 10.3 mg/dL Normal 8.7-10.3 [facility]; [facility] Work Phone: Comment on above: PATIENT NOT FASTINGP ERFORMED BY: HUSAM Nice70 RamírezWestern Missouri Medical Center [id number] Chloride [Moles/Vol] 99 mmol/L Normal 96-106 Comp rehensive [facility]; [facility] Work Phone: Comment on above: PATIENT NOT FASTINGP ERFORMED BY: HUSAM Couch6370 RamírezWestern [facility] Medical Center [id number] CO2 [Moles/Vol] 27 mmol/L Normal 20-29 [facility]; [facility] Work Phone: Comment on above: PATIENT NOT FASTINGP ERFORMED BY: HUSAM Couch6370 [facility] [id number] Creatinine [Mass/Vol] 0.72 mg/dL Normal 0.57-1.00 Com prehensive [facility]; [facility] Work Phone: Comment on above: PATIENT NOT FASTINGP ERFORMED BY: HUSAM Couch6370 [facility] [id number] GFR/1.73 sq M.predicted among blacks CKD-EPI (S/P/Bld) [Vol rate/Area] 100 mL/min/1.73 Normal [facility]; [facility] Work Phone: Comment on above: In accordance with recommendations from the NKF-ASN Task force, [facility] of updating its eGFR calculation to the 2020 CKD-EPI creatinine equation that estimates kidney function without a race variable. PATIENT NOT FASTINGP ERFORMED BY: HUSAM Hayneslin6370 [facility] [id number] GFR/1.73 sq M.predicted among non-blacks CKD-EPI (S/P/Bld) [Vol rate/Area] 86 mL/min/1.73 Normal [facility] Medicine; [facility] Work Phone: Comment on above: PATIENT NOT FASTINGP ERFORMED BY: HUSAM [facility] Kpdgwe0796 [address] [facility] [place] [id number] Glucose [Mass/Vol] 104 mg/dL Abnormal 65-99 [facility]; [facility] Work Phone: Comment on above: PATIENT NOT FASTINGP ERFORMED BY: CB [facility] Sywwgv7604 [address] [facility] [id number] Potassium [Moles/Vol] 3.9 mmol/L Normal 3.5-5.2 [facility] Medicine; [facility] Work Phone: Comment on above: PATIENT NOT FASTINGP ERFORMED BY: [facility] Oosdpc4409 [address] [facility] [id number] Sodium [Moles/Vol] 141 mmol/L Normal 134-144 [facility]; [facility] Work Phone: Comment on above: PATIENT NOT FASTINGP ERFORMED BY: [facility] Mbhgyy3040 [address] [facility] [id number] Urea nitrogen [Mass/Vol] 20 mg/dL Normal 8-27 [facility]; [facility] Work Phone: Comment on above: PATIENT NOT FASTINGP ERFORMED BY: [facility] Qpkxxr0383 [address] [facility] [id number] Urea nitrogen/Creatinine [Mass ratio] 28 mg/mg Normal 12-28 [facility]; [facility] Work Phone: Comment on above: PATIENT NOT FASTINGP ERFORMED BY: CB [facility] Caolde8758 [address] [facility]in [place] [id number] CBC W/AUTO DIFF WBC ([id number])O rdered By: Logging Superintendent on 10-08-2021 Basophils (Bld) [#/Vol] 0.0 10*3/uL Normal 0.0-0.2 [facility]; [facility] Work Phone: Comment on above: PATIENT WAS FASTINGP ERFORMED BY: [facility] Uykcfm4398 [address]blin [place] [id number] Basophils/100 WBC (Bld) 1 % Normal [facility]; [facility] Work Phone: Comment on above: PATIENT WAS FASTINGP ERFORMED BY: [facility] Hotdwp0264 [address] RoadDublin [place] [id number] Eosinophils (Bld) [#/Vol] 0.0 10*3/uL Normal 0.0-0.4 [facility]; [facility] Work Phone: Comment on above: PATIENT WAS FASTINGP ERFORMED BY: [facility]6[address] Roadblin [place] [id number] Eosinophils/100 WBC (Bld) 0 % Normal [facility]; [facility] Work Phone: Comment on above: PATIENT WAS FASTINGP ERFORMED BY: [facility]6370 [address] [facility] [id number] Erythrocyte distribution width (RBC) [Ratio] 12.6 % Normal 11.7-15.4 [facility]; [facility] Work Phone: Comment on above: PATIENT WAS FASTINGP ERFORMED BY: [facility] Arjnoy8716 [address] [facility] [id number] Hematocrit (Bld) [Volume fraction] 38.9 % Normal 34.0-46.6 [facility]; [facility] Work Phone: Comment on above: PATIENT WAS FASTINGP ERFORMED BY: [facility]6370 [address] [facility] [id number] Hemoglobin (Bld) [Mass/Vol] 13.3 g/dL Normal 11.1-15.9 [facility]; [facility] Work Phone: Comment on above: PATIENT WAS FASTINGP ERFORMED BY: [facility] Uaanni5227 [address] [facility] [place] [id number] Immature granulocytes (Bld) [#/Vol] 0.0 10*3/uL Normal 0.0-0.1 [facility]; [facility] Work Phone: Comment on above: PATIENT WAS FASTINGP ERFORMED BY: [facility] Piwocn2614 [address] [facility]in [place] [id number] Immature granulocytes/100 WBC (Bld) 0 % Normal [facility]; [facility] Work Phone: Comment on above: PATIENT WAS FASTINGP ERFORMED BY: [facility]6[address] [facility]in [place] [id number] Lymphocytes (Bld) [#/Vol] 0.9 10*3/uL Normal 0.7-3.1 [facility]; [facility] Work Phone: Comment on above: PATIENT WAS FASTINGP ERFORMED BY: [facility] Vjbogk0258 [address] [facility]in [place] [id number] Lymphocytes/100 WBC (Bld) 16 % Normal [facility]; [facility] Work Phone: Comment on above: PATIENT WAS FASTINGP ERFORMED BY: [facility]6370 [facility] [id number] MCH (RBC) [Entitic mass] 33.0 pg Normal 26.6-33.0 [facility]; [facility] Work Phone: Comment on above: PATIENT WAS FASTINGP ERFORMED BY: [facility] Gsvsfe9933 [address] [facility]in [place] [id number] MCHC (RBC) [Mass/Vol] 34.2 g/dL Normal 31.5-35.7 [facility] prehensive Internal Medicine; [facility] Work Phone: Comment on above: PATIENT WAS FASTINGP ERFORMED BY: [facility]6370 [address] [facility]in [place] [id number] MCV (RBC) [Entitic vol] 97 fL Normal 79-97 [facility]; [facility] Work Phone: Comment on above: PATIENT WAS FASTINGP ERFORMED BY: [facility]6[address] [facility] Hospitalblin [place] [id number] Monocytes (Bld) [#/Vol] 0.5 10*3/uL Normal 0.1-0.9 [facility]; [facility] Work Phone: Comment on above: PATIENT WAS FASTINGP ERFORMED BY: CB [facility] Nbrnid4792 [address] RoadDublin [place] [id number] Monocytes/100 WBC (Bld) 8 % Normal [facility]; [facility] Work Phone: Comment on above: PATIENT WAS FASTINGP ERFORMED BY: CB [facility] Gdcnaq7254 [address] RoadDublin [place] [id number] Neutrophils (Bld) [#/Vol] 4.3 10*3/uL Normal 1.4-7.0 [facility]; [facility] Work Phone: Comment on above: PATIENT WAS FASTINGP ERFORMED BY: CB [facility] Zxpbnp9519 [address] RoadDublin [place] [id number] Neutrophils/100 WBC (Bld) 75 % Normal [facility]; [facility] Work Phone: Comment on above: PATIENT WAS FASTINGP ERFORMED BY: CB [facility] Fpzjvv2283 [address] RoadDublin [place] [id number] Platelets (Bld) [#/Vol] 302 10*3/uL Normal 150-450 [facility]; [facility] Work Phone: Comment on above: PATIENT WAS FASTINGP ERFORMED BY: CB [facility] Qsqtsc2805 [address] RoadDublin [place] [id number] RBC (Bld) [#/Vol] 4.03 10*6/uL Normal 3.77-5.28 Compr ehensive Internal Medicine; [facility] Work Phone: Comment on above: PATIENT WAS FASTINGP ERFORMED BY: CB [facility] Utcnvz4613 [address] RoadDublin [place] [id number] WBC (Bld) [#/Vol] 5.7 10*3/uL Normal 3.4-10.8 [facility]; [facility] Work Phone: Comment on above: PATIENT WAS FASTINGP ERFORMED BY: CB [facility] Xkkise7139 [address] RoadDublin [place] [id number] LIPID PANEL (96063)Ordered B y: Logging Superintendent on 10-08-2021 Cholesterol [Mass/Vol] 263 mg/dL Abnormal 100-199 [facility]; [facility] Work Phone: Comment on above: PATIENT WAS FASTINGP ERFORMED BY: HUSAM [facility] Pslnba8472 [address] RoadDublin [place] [id number] Cholesterol in HDL [Mass/Vol] 107 mg/dL Normal [facility]; [facility] Work Phone: Comment on above: PATIENT WAS FASTINGP ERFORMED BY: CB [facility] Dlsexe1416 [address] RoadDublin [place] [id number] Triglyceride [Mass/Vol] 64 mg/dL Normal 0-149 [facility]; [facility] Work Phone: Comment on above: PATIENT WAS FASTINGP ERFORMED BY: CB [facility] Yzqeia7003 [address] RoadDublin [place] [id number] LIPID PANEL (77223) 10 mg/dL Normal 5-40 [facility]; [facility] Work Phone: Comment on above: PATIENT WAS FASTINGP ERFORMED BY: CB [facility] Erfngc3792 [address] RoadDublin [place] [id number] LIPID PANEL (90749) 146 mg/dL Abnormal 0-99 [facility]; [facility] Work Phone: Comment on above: PATIENT WAS FASTINGP ERFORMED BY: CB [facility] Kmvvzy8908 [address] RoadDublin [place] [id number] LIPID PANEL (78002) 1.4 {ratio} Normal 0.0-3.2 [facility]; [facility] Work Phone: Comment on above: LDL/HDL Ratio Men Wo men 1/2 Avg.Risk 1.0 1.5 Avg.Risk 3.6 3.2 2X Avg.Risk 6.2 5.0 3X Avg.Risk 8.0 6.1 PATIENT WAS FASTINGP ERFORMED BY: CB [facility] Urgltg5537 [address] RoadDublin [place] [id number] METABOLIC PANEL, COMPREHENSI VE (57568)Ordered By: Logging Superintendent on 10-08-2021 Albumin [Mass/Vol] 4.6 g/dL Normal 3.8-4.8 [facility] Internal Medicine; [facility] Work Phone: Comment on above: PATIENT WAS FASTINGP ERFORMED BY: CB [facility] Jztqva2509 [address] RoadDublin [place] [id number] Albumin/Globulin [Mass ratio] 1.5 {ratio} Normal 1.2-2.2 [facility]; [facility] Internal Medicine Work Phone: Comment on above: PATIENT WAS FASTINGP ERFORMED BY: CB [facility] Awlasi5074 [address] RoadDublin [place] [id number] ALP [Catalytic activity/Vol] 46 U/L Normal 44-121 [facility]; [facility] Work Phone: Comment on above: PATIENT WAS FASTINGP ERFORMED BY: CB [facility] Iwzftr1784 [address] RoadDublin [place] [id number] ALT [Catalytic activity/Vol] 14 U/L Normal 0-32 [facility]; [facility] Work Phone: Comment on above: PATIENT WAS FASTINGP ERFORMED BY: CB [facility] Nqoyzn2603 [address] RoadDublin [place] [id number] AST [Catalytic activity/Vol] 16 U/L Normal 0-40 [facility]; [facility] Work Phone: Comment on above: PATIENT WAS FASTINGP ERFORMED BY: CB [facility] Wbbnag5179 [address] RoadDublin [place] [id number] Bilirubin [Mass/Vol] 0.4 mg/dL Normal 0.0-1.2 [facility] Internal Medicine; [facility] Internal Medicine Work Phone: Comment on above: PATIENT WAS FASTINGP ERFORMED BY: CB [facility] Nervwq6409 [address]Dublin [place] [id number] Calcium [Mass/Vol] 9.8 mg/dL Normal 8.7-10.3 [facility]; [facility] Work Phone: Comment on above: PATIENT WAS FASTINGP ERFORMED BY: CB [facility] Uzriza2621 [address] RoadDublin [place] [id number] Chloride [Moles/Vol] 101 mmol/L Normal 96-106 Comp rehensive Internal Medicine; [facility] Work Phone: Comment on above: PATIENT WAS FASTINGP ERFORMED BY: HUSAM Couch6[address] [facility]AnmolQu[facility] [id number] CO2 [Moles/Vol] 26 mmol/L Normal 20-29 [facility] Internal Medicine; [facility] Work Phone: Comment on above: PATIENT WAS FASTINGP ERFORMED BY: HUSAM Hayneslin6370 [facility] [id number] Creatinine [Mass/Vol] 0.80 mg/dL Normal 0.57-1.00 [facility]; [facility] Work Phone: Comment on above: PATIENT WAS FASTINGP ERFORMED BY: HUSAM Hayneslin6370 [facility] [id number] GFR/1.73 sq M.predicted among blacks CKD-EPI (S/P/Bld) [Vol rate/Area] 88 mL/min/1.73 Normal [facility]; [facility] Work Phone: Comment on above: In accordance with recommendations from the NKF-ASN Task force, [facility] is in the process of updating its eGFR calculation to the 2020 CKD-EPI creatinine equation that estimates kidney function without a race variable. PATIENT WAS FASTINGP ERFORMED BY: HUSAM Hayneslin6370 [facility] [id number] GFR/1.73 sq M.predicted among non-blacks CKD-EPI (S/P/Bld) [Vol rate/Area] 76 mL/min/1.73 Normal [facility]; [facility] Work Phone: Comment on above: PATIENT WAS FASTINGP ERFORMED BY: HUSAM Hayneslin6370 [facility] [id number] Globulin (S) [Mass/Vol] 3.1 g/dL Normal 1.5-4.5 [facility]; [facility] Work Phone: Comment on above: PATIENT WAS FASTINGP ERFORMED BY: HUSAM [facility] Fnrgpw1092 [address] [facility]in [place] [id number] Glucose [Mass/Vol] 96 mg/dL Normal 65-99 [facility] Internal [facility]; [facility] Work Phone: Comment on above: PATIENT WAS FASTINGP ERFORMED BY: HUSAM [facility] Mposhs8070 [address] [facility] [id number] Potassium [Moles/Vol] 4.1 mmol/L Normal 3.5-5.2 [facility] Internal Medicine; [facility] Work Phone: Comment on above: PATIENT WAS FASTINGP ERFORMED BY: HUSAM [facility] Wpdhnv0298 [address] [facility] [id number] Protein [Mass/Vol] 7.7 g/dL Normal 6.0-8.5 [facility] Internal [facility]; [facility] Work Phone: Comment on above: PATIENT WAS FASTINGP ERFORMED BY: HUSAM [facility] Snrbzh8310 [address] [facility] [id number] Sodium [Moles/Vol] 140 mmol/L Normal 134-144 [facility] Internal [facility]; [facility] Work Phone: Comment on above: PATIENT WAS FASTINGP ERFORMED BY: HUSAM Golden Qriruh7139 [facility] [id number] Urea nitrogen [Mass/Vol] 17 mg/dL Normal 8-27 [facility] Internal [facility]; [facility] Work Phone: Comment on above: PATIENT WAS FASTINGP ERFORMED BY: [facility] Gdllty9014 [facility] [id number] Urea nitrogen/Creatinine [Mass ratio] 21 mg/mg Normal 12-28 [facility]; [facility] Work Phone: Comment on above: PATIENT WAS FASTINGP ERFORMED BY: HUSAM [facility] Afqhes0778 [facility] [id number] MRI BRAIN W/O CONTRASTon MRI BRAIN W/O CONTRAST EXAMINATION: MRI BRAIN W/O CONTRAST CLINICAL HISTORY: ATAXIA, HEAD TRAUMA, ABNORMAL GAIT R26.9. Closed head trauma one week ago. Patient reports right-sided weakness not responding to physical therapy. TECHNIQUE: Routine noncontrast MRI protocol including diffusion images. MQ: [id number] COMPARISON: None. RESULT: Acute Change: No acute intracranial hemorrhage. No evidence of diffuse axonal injury or acute infarct. No acute abnormality involving the cerebellum or midbrain. Hemorrhage: No evidence of prior parenchymal hemorrhage on the gradient echo images. Mass Lesion/ Mass Effect: No evidence of an intracranial mass or extra-axial fluid collection. No significant mass effect. Chronic Change: Scattered patchy areas of increased T2 and FLAIR signal are present in the supratentorial white matter which is a nonspecific finding but likely represents mild chronic microvascular ischemia. Parenchyma: No significant volume loss for age. The brain parenchyma is otherwise within normal limits of signal intensity and morphology. Ventricles: Normal caliber and morphology. Small left-sided choroid plexus xanthogranuloma. Skull Base: Hypothalamic and pituitary region are grossly normal. Craniocervical junction is normal. No significant marrow replacement process. Vasculature: Major intracranial arterial structures, and dural venous sinuses show typical flow void, suggesting patency by spin echo criteria. Other: The visualized paranasal sinuses and mastoid air cells are clear. The orbits and extracranial soft tissues are unremarkable. IMPRESSION: No MRI evidence of an acute intracranial process. Dictated by Manager Graphic: Tde Bonner DO I, Isauro Penn MD, have supervised the procedure and/or image review, and agree with the above interpretation and report. This report was electronically signed by Isauro Penn MD 08/21/2021 4:33 PM Reported By: ISAURO PENN MD Signed By: ISAURO PENN MD [facility] MRI LUMBAR SP W/O CONTRASTon 08-21-2021 MRI LUMBAR SP W/O CONTRAST EXAMINATION: MRI LUMBAR SP W/O CONTRAST CLINICAL HISTORY: M54.10 Radiculopathy, site unspecified TECHNIQUE: Routine lumbosacral spine MR protocol without gadolinium. MQ: [id number] COMPARISON: None. RESULT: Counting reference: Lumbosacral junction. For the purposes of this report, L4-5 is considered the level of the iliac crest and assume there are 5 lumbar-type vertebrae. Anatomic variant: None. Localizer images: Diverticulosis. Alignment: Sigmoid thoracolumbar scoliotic curvature. Bone marrow signal/fracture: Type II Modic changes at L5-S1, L4-5 and T11-12. Probable small intraosseous venous malformation in L2 superior endplate. No aggressive osseous lesions or infiltrative changes. No evidence of prior fracture. Conus: Conus medullaris terminates at the mid T12 vertebral body. No abnormal cord signal. No abnormal clumping of the cauda equina. Disc: Intervertebral disc height loss at L4-L5 and L5-S1. Diffuse degenerative disc signal. Paraspinal soft tissues: Paraspinal soft tissues are within normal limits. Lower thoracic spine: Visualized lower thoracic canal and foramina are patent. L1-L2: Moderate facet arthropathy. No spinal canal stenosis. Moderate bilateral foraminal narrowing. L2-L3: Moderate facet arthropathy. No significant spinal canal stenosis. Mild lateral recess narrowing. No foraminal narrowing. L3-L4: Circumferential bulge eccentric to the right, with moderate facet arthropathy and ligamentum flavum hypertrophy. Mild spinal canal stenosis. No foraminal narrowing. L4-L5: Circumferential bulge with superimposed central inferiorly migrated extrusion facet arthropathy and ligamentum flavum hypertrophy. No significant spinal canal stenosis. Mild lateral recess narrowing. No right foraminal narrowing. Mild left foraminal narrowing. L5-S1: Small articular zone protrusion and/or endplate osteophyte. Facet arthropathy. No spinal canal stenosis. Mild bilateral foraminal narrowing. Sacrum and iliac wings: Degenerative changes of the SI joints. IMPRESSION: Scoliosis and multilevel spondylosis as detailed greater in the lower spine, without significant spinal canal stenosis. Anatomic Thoracic/Lumbar Variant: None. L4-5 is considered the level of the iliac crest and assume there are 5 lumbar-type vertebrae. Dictated by Manager Graphic: Ted Bonner DO I, Isauro Penn MD, have supervised the procedure and/or image review, and agree with the above interpretation and report. This report was electronically signed by Isauro Penn MD 08/21/2021 4:28 PM Reported By: ISAURO PENN MD Signed By: ISAURO PENN MD [facility] Amasa CBC W/AUTO DIFF WBC ([id number])O rdered By: Logging Superintendent on 06-28-2014 Basophils (Bld) [#/Vol] 0.0 {x10E3/uL} Normal 0.0-0.2 [facility] Work Phone: Comment on above: PATIENT NOT FASTINGP ERFORMED BY: CB [facility] Ikxzaq6999 [address] RoadDublin [place] [id number] Basophils (Bld) [#/Vol] 0.0 10*3/uL Normal 0.0-0.2 [facility]; [facility] Work Phone: Comment on above: PATIENT NOT FASTINGP ERFORMED BY: CB [facility] Igyqtx4346 [address] RoadDublin [place] [id number] Basophils/100 WBC (Bld) 0 % Normal [facility] Work Phone: Comment on above: PATIENT NOT FASTINGP ERFORMED BY: CB [facility] Lsyaxr1868 [address] RoadDublin [place] [id number] Eosinophils (Bld) [#/Vol] 0.1 {x10E3/uL} Normal 0.0-0.4 [facility] Work Phone: Comment on above: PATIENT NOT FASTINGP ERFORMED BY: CB [facility] Cliikx4244 [address] RoadDublin [place] [id number] Eosinophils (Bld) [#/Vol] 0.1 10*3/uL Normal 0.0-0.4 [facility]; [facility] Work Phone: Comment on above: PATIENT NOT FASTINGP ERFORMED BY: CB [facility] Zvxrjw9062 [address] RoadDublin [place] [id number] Eosinophils/100 WBC (Bld) 1 % Normal [facility] Work Phone: Comment on above: PATIENT NOT FASTINGP ERFORMED BY: CB [facility] Pmisoy9022 [address] RoadDublin [place] [id number] Erythrocyte distribution width (RBC) [Ratio] 13.1 % Normal 12.3-15.4 [facility] Work Phone: Comment on above: PATIENT NOT FASTINGP ERFORMED BY: CB [facility] Ddfbmd1597 [address] RoadDublin [place] [id number] Hematocrit (Bld) [Volume fraction] 38.4 % Normal 34.0-46.6 [facility] Work Phone: Comment on above: PATIENT NOT FASTINGP ERFORMED BY: HUSAM Couch6370 [address] [facility] [id number] Hemoglobin (Bld) [Mass/Vol] 13.3 g/dL Normal 11.1-15.9 [facility] Work Phone: Comment on above: PATIENT NOT FASTINGP ERFORMED BY: CB [facility] Pabzlw5385 [address] [facility] [id number] Immature granulocytes (Bld) [#/Vol] 0.0 {x10E3/uL} Normal 0.0-0.1 [facility] Work Phone: Comment on above: PATIENT NOT FASTINGP ERFORMED BY: HUSAM [facility] Wevxlp6831 [address] [facility] [id number] Immature granulocytes (Bld) [#/Vol] 0.0 10*3/uL Normal 0.0-0.1 [facility]; [facility] Work Phone: Comment on above: PATIENT NOT FASTINGP ERFORMED BY: HSUAM Golden Pcwtrg6246 [address] [facility] [place] [id number] Immature granulocytes/100 WBC (Bld) 0 % Normal [facility] Work Phone: Comment on above: PATIENT NOT FASTINGP ERFORMED BY: HUSAM [facility] Gxcmoz8168 [address] [facility] [id number] Lymphocytes (Bld) [#/Vol] 1.3 {x10E3/uL} Normal 0.7-3.1 [facility] Work Phone: Comment on above: PATIENT NOT FASTINGP ERFORMED BY: CB [facility] Folcbb8431 [address] [facility] [place] [id number] Lymphocytes (Bld) [#/Vol] 1.3 10*3/uL Normal 0.7-3.1 [facility]; [facility] Work Phone: Comment on above: PATIENT NOT FASTINGP ERFORMED BY: CB [facility] Tadkgr4861 [address] [facility] [id number] Lymphocytes/100 WBC (Bld) 25 % Normal [facility] Work Phone: Comment on above: PATIENT NOT FASTINGP ERFORMED BY: HUSAM Burkrp Drnqmu1074 [address] [facility]in [place] [id number] MCH (RBC) [Entitic mass] 32.0 pg Normal 26.6-33.0 [facility] Work Phone: Comment on above: PATIENT NOT FASTINGP ERFORMED BY: CB [facility] Lslcki6975 [address] [facility] [id number] MCHC (RBC) [Mass/Vol] 34.6 g/dL Normal 31.5-35.7 [facility] Internal Medicine Work Phone: Comment on above: PATIENT NOT FASTINGP ERFORMED BY: HUSAM Burk Pexswo4354 [address] [facility] [id number] MCV (RBC) [Entitic vol] 93 fL Normal 79-97 [facility] Work Phone: Comment on above: PATIENT NOT FASTINGP ERFORMED BY: EricaCo Miskrw8888 [address] [facility] [id number] Monocytes (Bld) [#/Vol] 0.5 {x10E3/uL} Normal 0.1-0.9 [facility] Work Phone: Comment on above: PATIENT NOT FASTINGP ERFORMED BY: CB [facility] Mlvgtw9031 [address] [facility]in [place] [id number] Monocytes (Bld) [#/Vol] 0.5 10*3/uL Normal 0.1-0.9 [facility]; [facility] Work Phone: Comment on above: PATIENT NOT FASTINGP ERFORMED BY: CB [facility] Qjrvrs1805 [address] [facility]in [place] [id number] Monocytes/100 WBC (Bld) 10 % Normal [facility] Medicine Work Phone: Comment on above: PATIENT NOT FASTINGP ERFORMED BY: CB [facility] Ptopoj[address] [facility] [place] [id number] Neutrophils (Bld) [#/Vol] 3.3 {x10E3/uL} Normal 1.4-7.0 [facility] Work Phone: Comment on above: PATIENT NOT FASTINGP ERFORMED BY: HUSAM LabCosalvador Xjrjjl1960 [address]Dublin [place] [id number] Neutrophils (Bld) [#/Vol] 3.3 10*3/uL Normal 1.4-7.0 [facility]; [facility] Work Phone: Comment on above: PATIENT NOT FASTINGP ERFORMED BY: HUSAM LabCosalvador HaynesWavadv8922 [address] RoadDublin [place] [id number] Neutrophils/100 WBC (Bld) 64 % Normal [facility] Work Phone: Comment on above: PATIENT NOT FASTINGP ERFORMED BY: HUSAM Couch6370 [address] RoadDublin [place] [id number] Platelets (Bld) [#/Vol] 254 {x10E3/uL} Normal 150-379 [facility] Work Phone: Comment on above: PATIENT NOT FASTINGP ERFORMED BY: HUSAM LabCosalvador HaynesVfoamy0894 [address] RoadDublin [place] [id number] Platelets (Bld) [#/Vol] 254 10*3/uL Normal 150-379 [facility]; [facility] Work Phone: Comment on above: PATIENT NOT FASTINGP ERFORMED BY: HUSAM LabCosalvador HaynesTykhvg7672 [address] RoadDublin [place] [id number] RBC (Bld) [#/Vol] 4.15 {x10E6/uL} Normal 3.77-5.28 [facility] Internal Medicine Work Phone: Comment on above: PATIENT NOT FASTINGP ERFORMED BY: CB [facility] Yhwrqf5380 [address] RoadDublin [place] [id number] RBC (Bld) [#/Vol] 4.15 10*6/uL Normal 3.77-5.28 [facility] Medicine; [facility] Work Phone: Comment on above: PATIENT NOT FASTINGP ERFORMED BY: HUSAM [facility] Tlcrlf4168 [address] RoadDublin [place] [id number] WBC (Bld) [#/Vol] 5.2 {x10E3/uL} Normal 3.4-10.8 [facility] Internal Medicine Work Phone: Comment on above: PATIENT NOT FASTINGP ERFORMED BY: HUSAM [facility] Cinjvh9504 [address] RoadDublin [place] [id number] WBC (Bld) [#/Vol] 5.2 10*3/uL Normal 3.4-10.8 [facility] Internal Medicine; [facility] Internal Medicine Work Phone: Comment on above: PATIENT NOT FASTINGP ERFORMED BY: HUSAM [facility] Kdqluf5886 [address] RoadDublin [place] [id number] METABOLIC PANEL, COMPREHENSI VE ([id number])Ordered By: Logging Superintendent on 06-28-2014 Albumin [Mass/Vol] 4.4 g/dL Normal 3.6-4.8 [facility] Internal Medicine Work Phone: Comment on above: PATIENT NOT FASTINGP ERFORMED BY: HUSAM [facility] Ofzsju0248 [address] RoadDublin [place] [id number] Albumin/Globulin [Mass ratio] 1.5 {ratio} Normal 1.1-2.5 [facility] Internal Medicine Work Phone: Comment on above: PATIENT NOT FASTINGP ERFORMED BY: HUSAM [facility] Lanvww3439 [address] RoadDublin [place] [id number] ALP [Catalytic activity/Vol] 50 [iU]/L Normal 39-117 [facility] Internal Medicine Work Phone: Comment on above: PATIENT NOT FASTINGP ERFORMED BY: CB [facility] Pdptxm7502 [address] RoadDublin [place] [id number] ALP [Catalytic activity/Vol] 50 U/L Normal 39-117 [facility]; [facility] Work Phone: Comment on above: PATIENT NOT FASTINGP ERFORMED BY: HUSAM [facility] Qnlwyv7467 [address] RoadDublin [place] [id number] ALT [Catalytic activity/Vol] 17 [iU]/L Normal 0-32 [facility] Work Phone: Comment on above: PATIENT NOT FASTINGP ERFORMED BY: HUSAM [facility] Wfvcxj4139 [address] RoadDublin [place] [id number] ALT [Catalytic activity/Vol] 17 U/L Normal 0-32 [facility]; [facility] Work Phone: Comment on above: PATIENT NOT FASTINGP ERFORMED BY: CB [facility] Niqcvu5918 [address] RoadDublin [place] [id number] AST [Catalytic activity/Vol] 24 [iU]/L Normal 0-40 [facility] Work Phone: Comment on above: PATIENT NOT FASTINGP ERFORMED BY: HUSAM [facility] Uulfqw3813 [address] RoadDublin [place] [id number] AST [Catalytic activity/Vol] 24 U/L Normal 0-40 [facility]; [facility] Work Phone: Comment on above: PATIENT NOT FASTINGP ERFORMED BY: HUSAM LabGosiarp Ywfruz5621 [address] RoadDublin [place] [id number] Bilirubin [Mass/Vol] 0.2 mg/dL Normal 0.0-1.2 [facility] Medicine Work Phone: Comment on above: PATIENT NOT FASTINGP ERFORMED BY: HUSAM Goldenrp Jaiukf1613 [address]Dublin [place] [id number] Calcium [Mass/Vol] 9.6 mg/dL Normal 8.6-10.2 [facility] Internal Medicine Work Phone: Comment on above: PATIENT NOT FASTINGP ERFORMED BY: CB [facility] Enhktz6932 [address] RoadDublin [place] [id number] Chloride [Moles/Vol] 97 mmol/L Normal 97-108 [facility] Work Phone: Comment on above: PATIENT NOT FASTINGP ERFORMED BY: CB [facility] Kxvbft8700 [address]Dublin [place] [id number] CO2 [Moles/Vol] 27 mmol/L Normal 18-29 [facility] Work Phone: Comment on above: PATIENT NOT FASTINGP ERFORMED BY: CB [facility] Ndtsau1148 [address] RoadDublin [place] [id number] Creatinine [Mass/Vol] 0.60 mg/dL Normal 0.57-1.00 [facility] Internal Medicine Work Phone: Comment on above: PATIENT NOT FASTINGP ERFORMED BY: CB [facility] Axwcqx6281 [address] RoadDublin [place] [id number] GFR/1.73 sq M predicted among blacks CKD-EPI (S/P/Bld) [Vol rate/Area] 115 mL/min/1.73 Normal [facility] Work Phone: Comment on above: PATIENT NOT FASTINGP ERFORMED BY: CB [facility] Qhnyiz0592 [address] RoadDublin [place] [id number] GFR/1.73 sq M predicted among non-blacks CKD-EPI (S/P/Bld) [Vol rate/Area] 99 mL/min/1.73 Normal [facility] Internal Medicine Work Phone: Comment on above: PATIENT NOT FASTINGP ERFORMED BY: CB [facility] Rmqlqw5763 [address] RoadDublin [place] [id number] Globulin (S) [Mass/Vol] 3.0 g/dL Normal 1.5-4.5 [facility] Internal Medicine Work Phone: Comment on above: PATIENT NOT FASTINGP ERFORMED BY: CB [facility] Lpijdm8622 [address] RoadDublin [place] [id number] Glucose [Mass/Vol] 78 mg/dL Normal 65-99 [facility] Internal Medicine Work Phone: Comment on above: PATIENT NOT FASTINGP ERFORMED BY: CB [facility] Mcupsc1080 [address] RoadDublin [place] [id number] Potassium [Moles/Vol] 4.5 mmol/L Normal 3.5-5.2 [facility] Internal Medicine Work Phone: Comment on above: PATIENT NOT FASTINGP ERFORMED BY: CB [facility] Swzstm2595 [address] RoadDublin [place] [id number] Protein [Mass/Vol] 7.4 g/dL Normal 6.0-8.5 [facility] Internal Medicine Work Phone: Comment on above: PATIENT NOT FASTINGP ERFORMED BY: CB [facility] Zechgq4021 [address] RoadDublin [place] [id number] Sodium [Moles/Vol] 140 mmol/L Normal 134-144 [facility] Internal Medicine Work Phone: Comment on above: PATIENT NOT FASTINGP ERFORMED BY: CB [facility] Cjjabe1635 [address] RoadDublin [place] [id number] Urea nitrogen [Mass/Vol] 12 mg/dL Normal 8-27 [facility] Work Phone: Comment on above: PATIENT NOT FASTINGP ERFORMED BY: CB [facility] Pzbgfo5192 [address] RoadDublin [place] [id number] Urea nitrogen/Creatinine [Mass ratio] 20 mg/mg Normal 11- [facility] Work Phone: Comment on above: PATIENT NOT FASTINGP ERFORMED BY: CB [facility] Lerhwm0169 [address] RoadAtrium Health [place] [id number] TSH ([id number])Ordered By: Taty m Manager Diabetes on 06-28-2014 TSH Qn 1.170 {uIU/mL} Normal 0.450-4.50 0 [facility] Work Phone: Comment on above: PATIENT NOT FASTINGP ERFORMED BY: CB [facility] Xpnsrd8619 [address] RoadDublin [place] [id number] Vital Signs Date Time Vital Sign Value Performing Clinician Facility 05-04-2025 10:31-0400 Body height 165.[address] Eleanor Armstrong DO Work Phone: [facility] 05-04-2025 10:31-0400 Body mass index (BMI) [Ratio] 18.8 kg/m2 Dr. Eleanor Armstrong DO Work Phone: [facility] 05-04-2025 10:31-0400 Body temperature 97.7 [degF] Dr. Eleanor Armstrong DO Work Phone: [facility] 05-04-2025 10:31-0400 Body weight 51.[address] Eleanor Armstrong DO Work Phone: [facility] 05-04-2025 10:31-0400 Diastolic blood pressure 78 mm[Hg] Dr. Eleanor Armstrong DO Work Phone: [facility] 05-04-2025 10:31-0400 Heart rate 79 /min Dr. Eleanor Armstrong DO Work Phone: [facility] 05-04-2025 10:31-0400 SaO2% (BldA) [Mass fraction] 97 % Dr. Eleanor Armstrong DO Work Phone: [facility] 05-04-2025 10:31-0400 Systolic blood pressure 108 mm[Hg] Dr. Eleanor Armstrong DO Work Phone: [facility] 05-02-2025 13:50-0400 Body height 165.[address] Eleanor Armstrong DO Work Phone: [facility] 05-02-2025 13:50-0400 Body mass index (BMI) [Ratio] 19.3 kg/m2 Dr. Eleanor Armstrong DO Work Phone: [facility] 05-02-2025 13:50-0400 Body weight 52.[address] Eleanor Armstrong DO Work Phone: [facility] 05-02-2025 13:50-0400 Diastolic blood pressure 72 mm[Hg] Dr. Eleanor Armstrong DO Work Phone: [facility] 05-02-2025 13:50-0400 Heart rate 68 /min Dr. Eleanor Armstrong DO Work Phone: [facility] 05-02-2025 13:50-0400 Respiratory rate 16 /min Dr. Eleanor Armstrong DO Work Phone: [facility] 05-02-2025 13:50-0400 Systolic blood pressure 119 mm[Hg] Dr. Eleanor Armstrong DO Work Phone: [facility] 04-08-2025 14:10-0400 Body height 165.[address] Eleanor Armstrong DO Work Phone: [facility] 04-08-2025 14:10-0400 Body mass index (BMI) [Ratio] 20 kg/m2 Dr. Eleanor Armstrong DO Work Phone: [facility] 04-08-2025 14:10-0400 Body temperature 98.3 [degF] Dr. Eleanor Armstrong DO Work Phone: [facility] 04-08-2025 14:10-0400 Body weight 54.[address] Eleanor Armstrong DO Work Phone: [facility] 04-08-2025 14:10-0400 Diastolic blood pressure 74 mm[Hg] Dr. Eleanor Armstrong DO Work Phone: [facility] 04-08-2025 14:10-0400 Heart rate 66 /min Dr. Eleanor Armstrong DO Work Phone: [facility] 04-08-2025 14:10-0400 Respiratory rate 17 /min Dr. Eleanor Armstrong DO Work Phone: [facility] 04-08-2025 14:10-0400 Systolic blood pressure 130 mm[Hg] Dr. Eleanor Armstrong DO Work Phone: [facility] 03-19-2025 11:37-0400 Body height 165.[address] Eleanor Armstrong DO Work Phone: [facility] 03-19-2025 11:37-0400 Body mass index (BMI) [Ratio] 19.8 kg/m2 Dr. Eleanor Armstrong DO Work Phone: [facility] 03-19-2025 11:37-0400 Body temperature 98.9 [degF] Dr. Eleanor Armstrong DO Work Phone: [facility] 03-19-2025 11:37-0400 Body weight 54.[address] Eleanor Armstrong DO Work Phone: [facility] 03-19-2025 11:37-0400 Diastolic blood pressure 87 mm[Hg] Dr. Eleanor Armstrong DO Work Phone: [facility] 03-19-2025 11:37-0400 Heart rate 62 /min Dr. Eleanor Armstrong DO Work Phone: [facility] 03-19-2025 11:37-0400 Respiratory rate 12 /min Dr. Eleanor Armstrong DO Work Phone: [facility] 03-19-2025 11:37-0400 SaO2% (BldA) [Mass fraction] 99 % Dr. Eleanor Armstrong DO Work Phone: [facility] 03-19-2025 11:37-0400 Systolic blood pressure 144 mm[Hg] Dr. Eleanor Armstrong DO Work Phone: [facility] 02-21-2025 10:30-0400 Body temperature 98.2 [degF] Dr. Eleanor Armstrong DO Work Phone: [facility] 02-21-2025 10:30-0400 Body weight 54.[address] Eleanor Armstrong DO Work Phone: [facility] 02-21-2025 10:30-0400 Diastolic blood pressure 76 mm[Hg] Dr. Eleanor Armstrong DO Work Phone: [facility] 02-21-2025 10:30-0400 Heart rate 65 /min Dr. Eleanor Armstrong DO Work Phone: [facility] 02-21-2025 10:30-0400 Respiratory rate 17 /min Dr. Eleanor Armstrong DO Work Phone: [facility] 02-21-2025 10:30-0400 SaO2% (BldA) [Mass fraction] 98 % Dr. Eleanor Armstrong DO Work Phone: [facility] 02-21-2025 10:30-0400 Systolic blood pressure 138 mm[Hg] Dr. Eleanor Armstrong DO Work Phone: [facility] 02-16-2025 09:07-0400 Body temperature 97.9 [degF] Dr. Eleanor Armstrong DO Work Phone: [facility] 02-16-2025 09:07-0400 Diastolic blood pressure 83 mm[Hg] Dr. Eleanor Armstrong DO Work Phone: [facility] 02-16-2025 09:07-0400 Heart rate 67 /min Dr. Eleanor Armstrong DO Work Phone: [facility] 02-16-2025 09:07-0400 Respiratory rate 16 /min Dr. Eleanor Armstrong DO Work Phone: [facility] 02-16-2025 09:07-0400 SaO2% (BldA) [Mass fraction] 96 % Dr. Eleanor Armstrong DO Work Phone: [facility] 02-16-2025 09:07-0400 Systolic blood pressure 131 mm[Hg] Dr. Eleanor Armstrong DO Work Phone: [facility] 02-15-2025 14:54-0400 Body mass index (BMI) [Ratio] 20 kg/m2 Dr. Eleanor Armstrong DO Work Phone: [facility] 02-15-2025 13:58-0400 Body height 165.[address] Eleanor Armstrong DO Work Phone: [facility] 02-15-2025 13:58-0400 Body weight 54.[address] Eleanor Armstrong DO Work Phone: [facility] 02-15-2025 05:00-0400 Diastolic blood pressure 77 mm[Hg] Dr. Eleanor Armstrong DO Work Phone: [facility] 02-15-2025 05:00-0400 Heart rate 62 /min Dr. Eleanor Armstrong DO Work Phone: [facility] 02-15-2025 05:00-0400 Respiratory rate 16 /min Dr. Eleanor Armstrong DO Work Phone: [facility] 02-15-2025 05:00-0400 SaO2% (BldA) [Mass fraction] 98 % Dr. Eleanor Armstrong DO Work Phone: [facility] 02-15-2025 05:00-0400 Systolic blood pressure 127 mm[Hg] Dr. Eleanor Armstrong DO Work Phone: [facility] 02-15-2025 04:26-0400 Body temperature 98.5 [degF] Dr. Eleanor Armstrong DO Work Phone: [facility] 02-15-2025 01:43-0400 Body height 165.[address] Eleanor Armstrong DO Work Phone: [facility] 02-15-2025 01:43-0400 Body mass index (BMI) [Ratio] 20.8 kg/m2 Dr. Eleanor Armstrong DO Work Phone: [facility] 02-15-2025 01:43-0400 Body weight 56.[address] Eleanor Armstrong DO Work Phone: [facility] 02-14-2025 13:38-0400 Body temperature 98.4 [degF] Dr. Eleanor Armstrong DO Work Phone: [facility] 02-14-2025 13:38-0400 Body weight 56.[address] Eleanor Armstrong DO Work Phone: [facility] 02-14-2025 13:38-0400 Diastolic blood pressure 73 mm[Hg] Dr. Eleanor Armstrong DO Work Phone: [facility] 02-14-2025 13:38-0400 Heart rate 77 /min Dr. Eleanor Armstrong DO Work Phone: [facility] 02-14-2025 13:38-0400 Respiratory rate 17 /min Dr. Eleanor Armstrong DO Work Phone: [facility] 02-14-2025 13:38-0400 SaO2% (BldA) [Mass fraction] 97 % Dr. Eleanor Armstrong DO Work Phone: [facility] 02-14-2025 13:38-0400 Systolic blood pressure 125 mm[Hg] Dr. Eleanor Armstrong DO Work Phone: [facility] 01-28-2025 11:29-0400 Body height 165.[address] Eleanor Armstrong DO Work Phone: [facility] 01-28-2025 11:29-0400 Body mass index (BMI) [Ratio] 20.2 kg/m2 Dr. Eleanor Armstrong DO Work Phone: [facility] 01-28-2025 11:29-0400 Body temperature 98.2 [degF] Dr. Eleanor Armstrong DO Work Phone: [facility] 01-28-2025 11:29-0400 Body weight 55.[address] Eleanor Armstrong DO Work Phone: [facility] 01-28-2025 11:29-0400 Diastolic blood pressure 84 mm[Hg] Dr. Eleanor Armstrong DO Work Phone: [facility] 01-28-2025 11:29-0400 Heart rate 60 /min Dr. Eleanor Armstrong DO Work Phone: [facility] 01-28-2025 11:29-0400 Respiratory rate 15 /min Dr. Eleanor rAmstrong DO Work Phone: [facility] 01-28-2025 11:29-0400 SaO2% (BldA) [Mass fraction] 99 % Dr. Eleanor Armstrong DO Work Phone: [facility] 01-28-2025 11:29-0400 Systolic blood pressure 153 mm[Hg] Dr. Eleanor Armstrong DO Work Phone: [facility] 12-18-2024 10:49-0400 Body height 165.[address] Eleanor Armstrong DO Work Phone: [facility] 12-18-2024 10:49-0400 Body mass index (BMI) [Ratio] 20.2 kg/m2 Dr. Eleanor Armstrong DO Work Phone: [facility] 12-18-2024 10:49-0400 Body temperature 98 [degF] Dr. Eleanor Armstrong DO Work Phone: [facility] 12-18-2024 10:49-0400 Body weight 55.[address] Eleanor Armstrong DO Work Phone: [facility] 12-18-2024 10:49-0400 Diastolic blood pressure 76 mm[Hg] Dr. Eleanor Armstrong DO Work Phone: [facility] 12-18-2024 10:49-0400 Heart rate 68 /min Dr. Eleanor Armstrong DO Work Phone: [facility] 12-18-2024 10:49-0400 Respiratory rate 15 /min Dr. Eleanor Armstrong DO Work Phone: [facility] 12-18-2024 10:49-0400 SaO2% (BldA) [Mass fraction] 99 % Dr. Eleanor Armstrong DO Work Phone: [facility] 12-18-2024 10:49-0400 Systolic blood pressure 138 mm[Hg] Dr. Eleanor Armstrong DO Work Phone: [facility] 11-26-2024 13:53-0400 Body mass index (BMI) [Ratio] 20.2 kg/m2 Dr. Eleanor Armstrong DO Work Phone: [facility] 11-26-2024 13:53-0400 Body temperature 98.2 [degF] Dr. Eleanor Armstrong DO Work Phone: [facility] 11-26-2024 13:53-0400 Body weight 55.[address] Eleanor Armstrong DO Work Phone: [facility] 11-26-2024 13:53-0400 Diastolic blood pressure 68 mm[Hg] Dr. Eleanor Armstrong DO Work Phone: [facility] 11-26-2024 13:53-0400 Heart rate 72 /min Dr. Eleanor Armstrong DO Work Phone: [facility] 11-26-2024 13:53-0400 Respiratory rate 15 /min Dr. Eleanor Armstrong DO Work Phone: [facility] 11-26-2024 13:53-0400 SaO2% (BldA) [Mass fraction] 97 % Dr. Eleanor Armstrong DO Work Phone: [facility] 11-26-2024 13:53-0400 Systolic blood pressure 106 mm[Hg] Dr. Eleanor Armstrong DO Work Phone: [facility] 09-17-2024 11:28-0500 Body mass index (BMI) [Ratio] 19.8 kg/m2 Dr. Eleanor Armstrong DO Work Phone: [facility] 09-17-2024 11:28-0500 Body temperature 98.2 [degF] Dr. Eleanor Armstrong DO Work Phone: [facility] 09-17-2024 11:28-0500 Body weight 53.[address] Eleanor Armstrong DO Work Phone: [facility] 09-17-2024 11:28-0500 Diastolic blood pressure 72 mm[Hg] Dr. Eleanor Armstrong DO Work Phone: [facility] 09-17-2024 11:28-0500 Heart rate 72 /min Dr. Eleanor Armstrong DO Work Phone: [facility] 09-17-2024 11:28-0500 Respiratory rate 15 /min Dr. Eleanor Armstrong DO Work Phone: [facility] 09-17-2024 11:28-0500 SaO2% (BldA) [Mass fraction] 99 % Dr. Eleanor Armstrong DO Work Phone: [facility] 09-17-2024 11:28-0500 Systolic blood pressure 110 mm[Hg] Dr. Eleanor Armstrong DO Work Phone: [facility] 03-18-2023 13:09-0400 Body height 165.1 cm [facility]; [facility] Work Phone: 03-18-2023 13:09-0400 Body mass index (BMI) [Ratio] 18.64 kg/m2 [facility]; [facility] Work Phone: 03-18-2023 13:09-0400 Body surface area Derived from formula 1.55 m2 [facility]; [facility] Work Phone: 03-18-2023 13:09-0400 Body temperature 97.7 [degF] [facility]; [facility] Work Phone: 03-18-2023 13:09-0400 Body weight 50.8 kg [facility]; [facility] Work Phone: 03-18-2023 13:09-0400 Diastolic blood pressure 60 mm[Hg] [facility]; [facility] Work Phone: Comment on above: Patient Position: Sitting; Cuff Location : Left Arm; Cuff Size: Standard 03-18-2023 13:09-0400 Heart rate 70 /min [facility]; [facility] Work Phone: Comment on above: Pattern: Regular 03-18-2023 13:09-0400 Respiratory rate 16 /min [facility]; [facility] Work Phone: Comment on above: Pattern: Unlabored 03-18-2023 13:09-0400 SaO2% (BldA) [Mass fraction] 99 % [facility]; [facility] Work Phone: Comment on above: Room air 03-18-2023 13:09-0400 Systolic blood pressure 100 mm[Hg] [facility]; [facility] Work Phone: Comment on above: Patient Position: Sitting; Cuff Location : Left Arm; Cuff Size: Standard 02-21-2023 11:110400 Body height 165.1 cm [facility]; [facility] Work Phone: 02-21-2023 11:11-0400 Body mass index (BMI) [Ratio] 18.39 kg/m2 [facility]; [facility] Work Phone: 02-21-2023 11:11-0400 Body surface area Derived from formula 1.54 m2 [facility]; [facility] Work Phone: 02-21-2023 11:11-0400 Body temperature 96 [degF] [facility]; [facility] Work Phone: 02-21-2023 11:11-0400 Body weight 50.12 kg [facility]; [facility] Work Phone: 02-21-2023 11:11-0400 Diastolic blood pressure 62 mm[Hg] [facility]; [facility] Work Phone: Comment on above: Patient Position: Sitting; Cuff Location : Left Arm; Cuff Size: Standard 02-21-2023 11:110400 Heart rate 60 /min [facility]; [facility] Work Phone: Comment on above: Pattern: Regular 02-21-2023 11:11-0400 Respiratory rate 16 /min [facility]; [facility] Work Phone: Comment on above: Pattern: Unlabored 02-21-2023 11:11-0400 SaO2% (BldA) [Mass fraction] 99 % Sarkis Jimmy [facility]; [facility] Work Phone: Comment on above: Room air 02-21-2023 11:110400 Systolic blood pressure 112 mm[Hg] Sarkis Marquez [facility]; [facility] Work Phone: Comment on above: Patient Position: Sitting; Cuff Location : Left Arm; Cuff Size: Standard 01-20-2023 11:22040 Body height 165.1 cm Charlee Sosa MA [facility]; [facility] Work Phone: 01-20-2023 11:22040 Body mass index (BMI) [Ratio] 18.53 kg/m2 Charlee Sosa MA [facility]; [facility] Work Phone: 01-20-2023 11:22-040 Body surface area Derived from formula 1.54 m2 Charlee Sosa MA [facility]; [facility] Work Phone: 01-20-2023 11:22040 Body temperature 95.6 [degF] Charlee Sosa MA [facility]; [facility] Work Phone: 01-20-2023 11:22040 Body weight 50.52 kg Charlee Sosa MA [facility]; [facility] Work Phone: 01-20-2023 11:22040 Diastolic blood pressure 60 mm[Hg] Charlee Sosa MA [facility]; [facility] Work Phone: Comment on above: Patient Position: Sitting; Cuff Location : Left Arm; Cuff Size: Standard 01-20-2023 11:220400 Heart rate 93 /min Charlee Sosa MA [facility]; [facility] Work Phone: Comment on above: Pattern: Regular 01-20-2023 11:22-040 SaO2% (BldA) [Mass fraction] 99 % Charlee Sosa MA [facility]; [facility] Work Phone: Comment on above: Room air 01-20-2023 11:22-0400 Systolic blood pressure 100 mm[Hg] Charlee Sosa MA [facility]; [facility] Work Phone: Comment on above: Patient Position: Sitting; Cuff Location : Left Arm; Cuff Size: Standard 11-18-2022 11:06-0500 Body height 165.1 cm Marairma Chin JEFFRY [facility]; [facility] Work Phone: 11-18-2022 11:06-0500 Body mass index (BMI) [Ratio] 18.53 kg/m2 Marairma Chin JEFFRY [facility]; [facility] Work Phone: 11-18-2022 11:06-0500 Body surface area Derived from formula 1.54 m2 Marairma Carrenopriyanka TERAN [facility]; [facility] Work Phone: 11-18-2022 11:06-0500 Body temperature 98.1 [degF] Mara Elsy JEFFRY [facility]; [facility] Work Phone: 11-18-2022 11:06-0500 Body weight 50.52 kg Marairma Chin JEFFRY [facility]; [facility] Work Phone: 11-18-2022 11:06-0500 Diastolic blood pressure 82 mm[Hg] Marairma Chin JEFFRY [facility] Medicine; [facility] Work Phone: Comment on above: Patient Position: Sitting; Cuff Location : Left Arm; Cuff Size: Standard 11-18-2022 11:06-0500 Heart rate 77 /min Mara Elsy LPN [facility]; [facility] Work Phone: Comment on above: Pattern: Regular 11-18-2022 11:06-0500 Respiratory rate 16 /min Mara Elsy JEFFRY [facility]; [facility] Work Phone: Comment on above: Pattern: Unlabored 11-18-2022 11:06-0500 SaO2% (BldA) [Mass fraction] 98 % Mara Elsy LPN [facility]; [facility] Work Phone: Comment on above: Room air 11-18-2022 11:06-0500 Systolic blood pressure 120 mm[Hg] Mara Chin LPN [facility]; [facility] Work Phone: Comment on above: Patient Position: Sitting; Cuff Location : Left Arm; Cuff Size: Standard 10-21-2022 09:04-0500 [facility] Work Phone: 10-21-2022 09:04-0500 Body mass index (BMI) [Ratio] 18.53 kg/m2 [facility]; [facility] Work Phone: 10-21-2022 09:04-0500 Body surface area Derived from formula 1.54 m2 [facility]; [facility] Work Phone: 10-21-2022 09:04-0500 Body temperature 97.6 [degF] [facility]; [facility] Work Phone: 10-21-2022 09:04-0500 Body weight 50.52 kg [facility]; [facility] Work Phone: 10-21-2022 09:04-0500 Diastolic blood pressure 80 mm[Hg] [facility]; [facility] Work Phone: Comment on above: Patient Position: Sitting; Cuff Location : Left Arm; Cuff Size: Standard 10-21-2022 09:04-0500 Heart rate 87 /min [facility]; [facility] Work Phone: Comment on above: Pattern: Regular 10-21-2022 09:04-0500 Respiratory rate 16 /min [facility]; [facility] Work Phone: Comment on above: Pattern: Unlabored 10-21-2022 09:04-0500 SaO2% (BldA) [Mass fraction] 98 % [facility]; [facility] Work Phone: Comment on above: Room air 10-21-2022 09:04-0500 Systolic blood pressure 118 mm[Hg] Hayes Cobbford [facility]; [facility] Work Phone: Comment on above: Patient Position: Sitting; Cuff Location : Left Arm; Cuff Size: Standard 03-24-2022 12:03-0400 Body height 165.1 cm Mara Chin LPN [facility]; [facility] Work Phone: 03-24-2022 12:03-0400 Body mass index (BMI) [Ratio] 18.53 kg/m2 Mara Chin LPN [facility]; [facility] Work Phone: 03-24-2022 12:03-0400 Body surface area Derived from formula 1.54 m2 Mara Chin LPN [facility]; [facility] Work Phone: 03-24-2022 12:03-0400 Body temperature 97.3 [degF] Mara Chin LPN [facility]; [facility] Work Phone: 03-24-2022 12:03-0400 Body weight 50.52 kg Mara Chin LPN [facility]; [facility] Work Phone: 03-24-2022 12:03-0400 Diastolic blood pressure 80 mm[Hg] Mara Chin LPN [facility]; [facility] Work Phone: Comment on above: Patient Position: Sitting; Cuff Location : Left Arm; Cuff Size: Standard 03-24-2022 12:03-0400 Heart rate 62 /min Mara Chin LPN [facility]; [facility] Work Phone: Comment on above: Pattern: Regular 03-24-2022 12:03-0400 Respiratory rate 16 /min Mara Chin LPN [facility]; [facility] Work Phone: Comment on above: Pattern: Unlabored 03-24-2022 12:03-0400 Systolic blood pressure 118 mm[Hg] Mara Chin LPN [facility]; [facility] Work Phone: Comment on above: Patient Position: Sitting; Cuff Location : Left Arm; Cuff Size: Standard 03-04-2022 08:37-0400 Body height 165.[address] Eleanor Armstrong Work Phone: [facility] Work Phone: 03-04-2022 08:37-0400 Body mass index (BMI) [Ratio] 18.8 kg/m2 Dr. Eleanor Armstrong Work Phone: [facility] Work Phone: 03-04-2022 08:37-0400 Body weight 51.[address] Eleanor Armstrong Work Phone: [facility] Work Phone: 03-04-2022 08:37-0400 Diastolic blood pressure 82 mm[Hg] Dr. Eleanor Armstrong Work Phone: [facility] Work Phone: 03-04-2022 08:37-0400 Heart rate 65 /min Dr. Eleanor Armstrong Work Phone: [facility] Work Phone: 03-04-2022 08:37-0400 Respiratory rate 16 /min Dr. Eleanor Armstrong Work Phone: [facility] Work Phone: 03-04-2022 08:37-0400 SaO2% (BldA) [Mass fraction] 97 % Dr. Eleanor Armstrong Work Phone: [facility] Work Phone: 03-04-2022 08:37-0400 Systolic blood pressure 132 mm[Hg] Dr. Eleanor Armstrong Work Phone: [facility] Work Phone: 03-01-2022 08:03-0400 Body height 165.1 cm Eleanor Armstrong DO Work Phone: [facility]; [facility] Work Phone: Comment on above: partial vitals due to tele- visit 03-01-2022 08:03-0400 Body mass index (BMI) [Ratio] 19.97 kg/m2 Eleanor Armstrong DO Work Phone: [facility]; [facility] Work Phone: Comment on above: partial vitals due to tele- visit 03-01-2022 08:03-0400 Body surface area Derived from formula 1.59 m2 Eleanor Armstrong DO Work Phone: [facility]; [facility] Work Phone: Comment on above: partial vitals due to tele- visit 03-01-2022 08:03-0400 Body weight 54.44 kg Eleanor Armstrong DO Work Phone: [facility]; [facility] Work Phone: Comment on above: partial vitals due to tele- visit 03-01-2022 08:03-0400 Diastolic blood pressure 70 mm[Hg] Eleanor Armstrong DO Work Phone: [facility]; [facility] Work Phone: Comment on above: Patient Position: Sitting partial vitals due t o tele- visit 03-01-2022 08:03-0400 Heart rate 70 /min Eleanor Armstrong DO Work Phone: [facility]; [facility] Work Phone: Comment on above: Pattern: Regular partial vitals due t o tele- visit 03-01-2022 08:03-0400 Systolic blood pressure 130 mm[Hg] Eleanor Armstrong DO Work Phone: [facility]; [facility] Work Phone: Comment on above: Patient Position: Sitting partial vitals due t o tele- visit 01-21-2022 15:20-0400 Body mass index (BMI) [Ratio] 19.5 kg/m2 Dr. Eleanor Armstrong Work Phone: [facility] Work Phone: 01-21-2022 15:20-0400 Body temperature 98.4 [degF] Dr. Eleanor Armstrong Work Phone: [facility] Work Phone: 01-21-2022 15:20-0400 Body weight 53.[address] Eleanor Armstrong Work Phone: [facility] Work Phone: 01-21-2022 15:20-0400 Diastolic blood pressure 88 mm[Hg] Dr. Eleanor Armstrong Work Phone: [facility] Work Phone: 01-21-2022 15:20-0400 Heart rate 80 /min Dr. Eleanor Armstrong Work Phone: [facility] Work Phone: 01-21-2022 15:20-0400 Respiratory rate 16 /min Dr. Eleanor Armstrong Work Phone: [facility] Work Phone: 01-21-2022 15:20-0400 SaO2% (BldA) [Mass fraction] 99 % Dr. Eleanor Armstrong Work Phone: [facility] Work Phone: 01-21-2022 15:20-0400 Systolic blood pressure 130 mm[Hg] Dr. Eleanor Armstrong Work Phone: [facility] Work Phone: 01-21-2022 15:20-0400 Body height 165.[address] Eleanor Armstrong Work Phone: [facility] Work Phone: 01-21-2022 15:20-0400 Body mass index (BMI) [Ratio] 19.5 kg/m2 Dr. Eleanor Armstrong Work Phone: [facility] Work Phone: 01-21-2022 15:20-0400 Body temperature 98.4 [degF] Dr. Eleanor Armstrong Work Phone: [facility] Work Phone: 01-21-2022 15:20-0400 Body weight 53.[address] Eleanor Armstrong Work Phone: [facility] Work Phone: 01-21-2022 15:20-0400 Diastolic blood pressure 88 mm[Hg] Dr. Eleanor Armstrong Work Phone: [facility] Work Phone: 01-21-2022 15:20-0400 Heart rate 80 /min Dr. Eleanor Armstrong Work Phone: [facility] Work Phone: 01-21-2022 15:20-0400 Respiratory rate 16 /min Dr. Eleanor Armstrong Work Phone: [facility] Work Phone: 01-21-2022 15:20-0400 SaO2% (BldA) [Mass fraction] 99 % Dr. Eleanor Armstrong Work Phone: [facility] Work Phone: 01-21-2022 15:20-0400 Systolic blood pressure 130 mm[Hg] Dr. Eleanor Armstrong Work Phone: [facility] Work Phone: 11-20-2021 08:20-0500 Body height 165.1 [facility]; [facility] Work Phone: 11-20-2021 08:20-0500 Body mass index (BMI) [Ratio] 19.97 kg/m2 Malgorzata Gravius [facility]; [facility] Work Phone: 11-20-2021 08:20-0500 Body surface area Derived from formula 1.59 m2 Malgorzata Avilaflako [facility]; [facility] Work Phone: 11-20-2021 08:20-0500 Body weight 54.44 [facility]; [facility] Work Phone: 10-28-2021 09:42-0500 Body height 165.1 cm Malgorzata Bernstein [facility]; [facility] Work Phone: Comment on above: no vs taken as this is phone encounter d ue to covid 10-28-2021 09:42-0500 Body mass index (BMI) [Ratio] 19.97 kg/m2 Malgorzata Bernstein [facility]; [facility] Work Phone: Comment on above: no vs taken as this is phone encounter d ue to covid 10-28-2021 09:42-0500 Body surface area Derived from formula 1.59 m2 Malgorzata Bernstein [facility]; [facility] Work Phone: Comment on above: no vs taken as this is phone encounter d ue to covid 10-28-2021 09:42-0500 Body weight 54.44 kg Malgorzata Bernstein [facility]; [facility] Work Phone: Comment on above: no vs taken as this is phone encounter d ue to covid 10-27-2021 09:06-0500 Diastolic blood pressure 96 mm[Hg] Dr. Eleanor Armstrong Work Phone: [facility] Work Phone: 10-27-2021 09:06-0500 Heart rate 83 /min Dr. Eleanor Armstrong Work Phone: [facility] Work Phone: 10-27-2021 09:06-0500 SaO2% (BldA) [Mass fraction] 98 % Dr. Eleanor Armstrong Work Phone: [facility] Work Phone: 10-27-2021 09:06-0500 Systolic blood pressure 148 mm[Hg] Dr. Eleanor Armstrong Work Phone: [facility] Work Phone: 09-24-2021 10:37-0500 Body height 165.1 cm Mara Elsy DAIRY TESTER [facility]; [facility] Work Phone: Comment on above: virtual appt, none reported 09-24-2021 10:37-0500 Body mass index (BMI) [Ratio] 19.97 kg/m2 Mara Elsy DAIRY TESTER [facility]; [facility] Work Phone: Comment on above: virtual appt, none reported 09-24-2021 10:37-0500 Body surface area Derived from formula 1.59 m2 Mara Elsy DAIRY TESTER [facility]; [facility] Work Phone: Comment on above: virtual appt, none reported 09-24-2021 10:37-0500 Body weight 54.44 kg Mara Elsy DAIRY TESTER [facility]; [facility] Work Phone: Comment on above: virtual appt, none reported 09-02-2021 10:19-0500 Body height 165.1 cm Marairma Chin DAIRY TESTER [facility]; [facility] Work Phone: Comment on above: virtual, none reported 09-02-2021 10:19-0500 Body mass index (BMI) [Ratio] 19.97 kg/m2 Mara Elsy DAIR[employer] TESTER [facility]; [facility] Work Phone: Comment on above: virtual, none reported 09-02-2021 10:19-0500 Body surface area Derived from formula 1.59 m2 Mara Elsy DAIRY TESTER [facility]; [facility] Work Phone: Comment on above: virtual, none reported 09-02-2021 10:19-0500 Body weight 54.44 kg Mara Elsy DAIRY TESTER [facility]; [facility] Work Phone: Comment on above: virtual, none reported 07-16-2021 12:11-0400 Body height 165.1 cm Malgorzata Gravius [facility]; [facility] Work Phone: 07-16-2021 12:11-0400 Body mass index (BMI) [Ratio] 19.97 kg/m2 Malgorzata Gravius [facility]; [facility] Work Phone: 07-16-2021 12:0400 Body surface area Derived from formula 1.59 m2 Malgorzata Bernstein CMA [facility]; [facility] Work Phone: 07-16-2021 12:040 Body temperature 97.1 [degF] Malgorzata Bernstein CMA [facility]; [facility] Work Phone: Comment on above: Method: Infrared 07-16-2021 12: Body weight 54.44 kg Malgorzata Bernstein DORMITORY COUNSELOR [facility]; [facility] Work Phone: 07-16-2021 12:11040 Diastolic blood pressure 98 mm[Hg] Malgorzata Bernstein CMA [facility]; [facility] Work Phone: Comment on above: Patient Position: Sitting; Cuff Location : Left Arm; Cuff Size: Standard 07-16-2021 12:11-0400 Heart rate 68 /min Malgorzata Bernstein CMA [facility]; [facility] Work Phone: Comment on above: Pattern: Regular 07-16-2021 12:11-0400 Respiratory rate 18 /min Malgorzata Bernstein CMA [facility]; [facility] Work Phone: Comment on above: Pattern: Unlabored 07-16-2021 12:11-0400 SaO2% (BldA) [Mass fraction] 98 % Malgorzata Bernstein [facility]; [facility] Work Phone: Comment on above: Room air 07-16-2021 12:11-0400 Systolic blood pressure 178 mm[Hg] Malgorzata Bernstein CMA [facility]; [facility] Work Phone: Comment on above: Patient Position: Sitting; Cuff Location : Left Arm; Cuff Size: Standard 06-22-2021 09:11040 Body height 165.1 cm Mimi Woodruff MA [facility]; [facility] Work Phone: 06-22-2021 09:110400 Body mass index (BMI) [Ratio] 20.8 kg/m2 Mimi Woodruff MA [facility]; [facility] Work Phone: 06-22-2021 09:110400 Body surface area Derived from formula 1.62 m2 Mimi Woodruff MA [facility]; [facility] Work Phone: 06-22-2021 09:040 Body weight 56.71 kg Mimi Ranjan GAFFNEY [facility]; [facility] Work Phone: 06-22-2021 09:040 Diastolic blood pressure 86 mm[Hg] Mimi Ranjan GAFFNEY [facility]; [facility] Work Phone: Comment on above: Patient Position: Sitting; Cuff Location : Left Arm; Cuff Size: Standard 06-22-2021 09:11-040 Systolic blood pressure 140 mm[Hg] Mimi Ranjan GAFFNEY [facility]; [facility] Work Phone: Comment on above: Patient Position: Sitting; Cuff Location : Left Arm; Cuff Size: Standard 06-19-2021 08:10-0400 Body height 165.1 cm Malgorzata Bernstein [facility]; [facility] Work Phone: 06-19-2021 08:10-0400 Body mass index (BMI) [Ratio] 20.8 kg/m2 Malgorzata Bernstein [facility]; [facility] Work Phone: 06-19-2021 08:10-0400 Body surface area Derived from formula 1.62 m2 Malgorzata Bernstein [facility]; [facility] Work Phone: 06-19-2021 08:10-0400 Body temperature 97.3 [degF] Malgorzata Bernstein [facility]; [facility] Work Phone: Comment on above: Method: Infrared 06-19-2021 08:10040 Body weight 56.71 kg Malgorzata Bernstein [facility]; [facility] Work Phone: 06-19-2021 08:10-0400 Diastolic blood pressure 120 mm[Hg] Malgorzata Bernstein [facility]; [facility] Work Phone: Comment on above: Patient Position: Sitting; Cuff Location : Left Arm; Cuff Size: Standard 06-19-2021 08:10-0400 Respiratory rate 16 /min Malgorzata Bernstein [facility]; [facility] Work Phone: Comment on above: Pattern: Unlabored 06-19-2021 08:10-0400 Systolic blood pressure 162 mm[Hg] Malgorzata Bernstein [facility]; [facility] Work Phone: Comment on above: Patient Position: Sitting; Cuff Location : Left Arm; Cuff Size: Standard 02-25-2021 10:39-0400 Body height 165.1 cm Daryl Torres LPN [facility]; [facility] Work Phone: 02-25-2021 10:39-0400 Body mass index (BMI) [Ratio] 20.8 kg/m2 Daryl Torres LPN [facility]; [facility] Work Phone: 02-25-2021 10:39-0400 Body surface area Derived from formula 1.62 m2 Daryl Torres LPN [facility]; [facility] Work Phone: 02-25-2021 10:39-0400 Body weight 56.71 kg Daryl Torres LPN [facility]; [facility] Work Phone: 02-18-2021 09:06-0400 Body height 165.1 cm Daryl Torres LPN [facility]; [facility] Work Phone: 02-18-2021 09:06-0400 Body mass index (BMI) [Ratio] 21.65 kg/m2 Daryl Torres LPN [facility]; [facility] Work Phone: 02-18-2021 09:06-0400 Body mass index (BMI) [Ratio] 20.8 kg/m2 Daryl Torres LPN [facility]; [facility] Work Phone: 02-18-2021 09:06-0400 Body surface area Derived from formula 1.65 m2 Daryl Torres LPN [facility]; [facility] Work Phone: 02-18-2021 09:06-0400 Body surface area Derived from formula 1.62 m2 Daryl Torres LPN [facility]; [facility] Work Phone: 02-18-2021 09:06-0400 Body temperature 97.1 [degF] Daryl Torres LPN [facility]; [facility] Work Phone: Comment on above: Method: Infrared 02-18-2021 09:06-0400 Body weight 59.02 kg Daryl Torres LPN [facility]; [facility] Work Phone: 02-18-2021 09:06-0400 Body weight 56.71 kg Daryl Torres LPN [facility]; [facility] Work Phone: 02-18-2021 09:06-0400 Diastolic blood pressure 80 mm[Hg] Daryl Torres LPN [facility]; [facility] Work Phone: Comment on above: Patient Position: Sitting; Cuff Location : Left Arm; Cuff Size: Standard 02-18-2021 09:06-0400 Heart rate 89 /min Daryl Torres LPN [facility]; [facility] Work Phone: Comment on above: Pattern: Regular 02-18-2021 09:06-0400 Respiratory rate 16 /min Daryl Torres LPN [facility]; [facility] Work Phone: Comment on above: Pattern: Unlabored 02-18-2021 09:06-0400 SaO2% (BldA) [Mass fraction] 98 % Daryl Torres LPN [facility]; [facility] Work Phone: Comment on above: Room air 02-18-2021 09:06-0400 Systolic blood pressure 140 mm[Hg] Daryl Torres LPN [facility]; [facility] Work Phone: Comment on above: Patient Position: Sitting; Cuff Location : Left Arm; Cuff Size: Standard 08-13-2020 15:02-0500 BMI (Body Mass Index) 21.65 kg/m2 Malgorzata Bernstein DORMITORY COUNSELOR [facility] Work Phone: 08-13-2020 15:02-0500 Body Temperature 97.5 [degF] Malgorzata Austinius DORMITORY COUNSELOR [facility] Work Phone: Comment on above: Method: Infrared 08-13-2020 15:02-0500 Body weight 59.02 kg Malgorzata Bernstein [facility] Work Phone: 08-13-2020 15:02-0500 BP Diastolic 80 mm[Hg] Malgorzata Bernstein [facility] Work Phone: Comment on above: Patient Position: Sitting; Cuff Location : Left Arm; Cuff Size: Standard 08-13-2020 15:02-0500 BP Systolic 138 mm[Hg] Malgorzata Bernstein [facility] Work Phone: Comment on above: Patient Position: Sitting; Cuff Location : Left Arm; Cuff Size: Standard 08-13-2020 15:02-0500 BSA (Body Surface Area) 1.65 m2 Malgorzata Bernstein [facility] Work Phone: 08-13-2020 15:02-0500 Height 165.1 cm Malgorzata Bernstein [facility] Work Phone: 08-13-2020 15:02-0500 Pulse (Heart Rate) 87 /min Malgorzata Bernstein CMA [facility] Work Phone: Comment on above: Pattern: Regular 08-13-2020 15:02-0500 Pulse Oximetry 97 % Eleanor Armstrong [facility] Work Phone: Comment on above: Room air 08-13-2020 15:02-0500 Respiratory Rate 18 /min Malgorzata Bernstein DORMITORY COUNSELOR [facility] Work Phone: Comment on above: Pattern: Unlabored 08-13-2020 15:02-0500 SaO2% (BldA) [Mass fraction] 97 % Malgorzata Bernstein [facility]; [facility] Work Phone: Comment on above: Room air 09-29-2016 14:14-0500 BMI (Body Mass Index) 21.65 kg/m2 Ember Levi RN [facility] Work Phone: 09-29-2016 14:14-0500 Body weight 59.02 kg Ember Levi RN [facility] Work Phone: 09-29-2016 14:14-0500 BP Diastolic 70 mm[Hg] Ember Levi RN [facility] Work Phone: Comment on above: Patient Position: Sitting; Cuff Location : Left Arm; Cuff Size: Standard 09-29-2016 14:14-0500 BP Systolic 122 mm[Hg] Ember Levi RN [facility] Work Phone: Comment on above: Patient Position: Sitting; Cuff Location : Left Arm; Cuff Size: Standard 09-29-2016 14:14-0500 BSA (Body Surface Area) 1.65 m2 Ember Levi RN [facility] Work Phone: 09-29-2016 14:14-0500 Height 165.1 cm Ember Levi RN [facility] Work Phone: 09-29-2016 14:14-0500 Pulse (Heart Rate) 68 /min Ember Levi RN [facility] Work Phone: Comment on above: Pattern: Regular 09-29-2016 14:14-0500 Pulse Oximetry 96 % Eleanor Patti [facility] Work Phone: Comment on above: Room air 09-29-2016 14:14-0500 Respiratory Rate 18 /min Ember Levi RN [facility] Work Phone: Comment on above: Pattern: Unlabored 09-29-2016 14:14-0500 SaO2% (BldA) [Mass fraction] 96 % Ember Levi RN [facility]; [facility] Work Phone: Comment on above: Room air 07-30-2014 12:22-0500 BMI (Body Mass Index) 21.81 kg/m2 Ember Levi RN [facility] Work Phone: 07-30-2014 12:22-0500 Body weight 59.45 kg Ember Levi RN [facility] Work Phone: 07-30-2014 12:22-0500 BP Diastolic 84 mm[Hg] Ember Levi RN [facility] Work Phone: Comment on above: Patient Position: Sitting; Cuff Location : Left Arm; Cuff Size: Standard 07-30-2014 12:22-0500 BP Systolic 122 mm[Hg] Ember Levi RN [facility] Work Phone: Comment on above: Patient Position: Sitting; Cuff Location : Left Arm; Cuff Size: Standard 07-30-2014 12:22-0500 BSA (Body Surface Area) 1.65 m2 Ember Levi RN [facility] Work Phone: 07-30-2014 12:22-0500 Height 165.1 cm Ember Levi RN [facility] Work Phone: 07-30-2014 12:22-0500 Pulse (Heart Rate) 62 /min Ember Levi RN [facility] Work Phone: Comment on above: Pattern: Regular 07-30-2014 12:22-0500 Pulse Oximetry 98 % Eleanor Armstrong [facility] Work Phone: Comment on above: Room air 07-30-2014 12:22-0500 Respiratory Rate 18 /min Ember Levi RN [facility] Work Phone: Comment on above: Pattern: Unlabored 07-30-2014 12:22-0500 SaO2% (BldA) [Mass fraction] 98 % Ember Levi RN [facility]; [facility] Work Phone: Comment on above: Room air 06-28-2014 11:44-0400 Body Temperature 98.6 [degF] Eleanorthais Armstrong [facility] Work Phone: Comment on above: Method: Temporal 06-28-2014 11:44-0400 BP Diastolic 80 mm[Hg] Eleanorthais Armstrong [facility] Work Phone: Comment on above: Patient Position: Sitting; Cuff Location : Left Arm; Cuff Size: Standard 06-28-2014 11:44-0400 BP Systolic 124 mm[Hg] Eleanorthais Armstrong [facility] Work Phone: Comment on above: Patient Position: Sitting; Cuff Location : Left Arm; Cuff Size: Standard 06-28-2014 11:44-0400 Pulse (Heart Rate) 66 /min Eleanorthais Calderonon [facility] Work Phone: Comment on above: Pattern: Regular 06-28-2014 11:44-0400 Pulse Oximetry 98 % Eleanor Armstrong [facility] Work Phone: Comment on above: Room air 06-28-2014 11:44-0400 Respiratory Rate 15 /min Eleanor Armstrong [facility] Work Phone: Comment on above: Pattern: Unlabored 06-28-2014 11:44-0400 SaO2% (BldA) [Mass fraction] 98 % Eleanor Armstrong DO Work Phone: [facility]; [facility] Work Phone: Comment on above: Room air Encounters Encounter Date Encounter Type Care Provider Facility Start: 05-05-2025 End: 05-05-[address] Eleanor Armstrong DO Work Phone: -Laboratory Specimen Start: 05-05-2025 End: 05-05-2025 Patient encounter procedure Reza CASTILLO -Laboratory Specimen Work Phone: Start: 05-04-2025 End: 05-04-2025 Patient encounter procedure Leander Grier [facility] -[facility] Work Phone: Start: 05-04-2025 End: 05-05-[address] Eleanor Armstrong DO Work Phone: -[facility] Start: 05-02-2025 End: 05-02-[address] Jac Truong MD -[facility] Work Phone: Start: 05-02-2025 End: 05-02-[address] Eleanor Armstrong DO Work Phone: -[facility] Start: 04-08-2025 End: 04-08-[address] Jac Truong MD -[facility] Work Phone: Start: 04-08-2025 End: 04-08-[address] Eleanor Armstrong DO Work Phone: -[facility] Start: 04-05-2025 End: 04-05-[address] Eleanor Armstrong DO Work Phone: -Outpatient [facility] Start: 04-05-2025 End: 04-05-[address] Eleanor Armstrong DO -[facility]patient [facility] Work Phone: Start: 04-05-2025 End: 04-05-2025 ambulatory Eleanor Armstrong Facility:[facility] Start: 03-19-2025 End: 03-19-[address] Jac Truong MD -[facility] Work Phone: Start: 03-19-2025 End: 03-19-[address] Eleanor Armstrong DO Work Phone: -[facility] Start: 03-19-2025 Non-patient / Non-visit Dr. Jennifer white MD -[facility] Work Phone: Start: 03-11-2025 End: 03-11-[address] Eleanor Armstrong DO Work Phone: -[facility] Start: 03-11-2025 End: 03-11-[address] Jac Truong MD -[facility] Work Phone: Start: 03-11-2025 End: 03-11-2025 ambulatory Eleanor Armstrong Facility:[facility] Start: 02-21-2025 End: 02-21-[address] Jac Truong MD -[facility] Work Phone: Start: 02-21-2025 End: 02-21-[address] Eleanor Armstrong DO Work Phone: [facility] Work Phone: Start: 02-16-2025 Non-patient / Non-visit Dr. Eliel Reeves MD -[facility] Work Phone: Start: 02-15-2025 ambulatory Carolina Centeno Facility:[facility] Start: 02-15-2025 Non-patient / Non-visit Dr. Carolina haley MD -[facility] Start: 02-15-2025 Non-patient / Non-visit Dr. Magali Becerril MD -[facility] Work Phone: Start: 02-15-2025 End: 02-16-2025 ambulatory Sheng Galvin Facility:[facility] Start: 02-15-2025 End: 02-16-2025 Evaluation and management of inpatient Dr. Marvin Becerril MD -Pro[facility] Care Unit Work Phone: Start: 02-15-2025 End: 02-16-[address] Eleanor Armstrong DO Work Phone: [facility] Work Phone: Start: 02-14-2025 End: 02-14-[address] Jac Truong MD -[facility] Work Phone: Start: 02-14-2025 End: 02-14-[address] Eleanor Armstrong DO Work Phone: [facility] Work Phone: Start: 01-28-2025 End: 01-28-[address] Jac Truong MD -[facility] Work Phone: Start: 01-28-2025 End: 01-28-2025 ambulatory Eleanor Armstrong Facility:[facility] Start: 01-02-2025 ambulatory Jalil Banerjee Facility :[facility] Start: 01-02-2025 Non-patient / Non-visit Dr. Eloy lynn MD -[facility]- Start: 01-02-2025 End: 01-02-[address] Jalil Banerjee DPM -Pulmonary Services/Neurology Work Phone: Start: 01-02-2025 End: 01-02-2025 ambulatory Jalil Banerjee Facility:[facility] Start: 12-18-2024 End: 12-18-[address] Jac Truong MD -[facility] Work Phone: Start: 12-18-2024 End: 12-18-[address] Eleanor Patti DO Work Phone: [facility] Work Phone: Start: 12-18-2024 End: 12-18-2024 ambulatory Eleanor Patti Facility:[facility] Start: 11-26-2024 End: 11-26-[address] Jac Truong MD -[facility] Work Phone: Start: 11-26-2024 End: 11-26-2024 ambulatory Eleanor Patti Facility:[facility] Start: 09-17-2024 End: 09-17-[address] Jac Truong MD -[facility] Work Phone: Start: 09-17-2024 End: 09-17-2024 ambulatory Eleanor Patti Facility:[facility] Start: 05-15-2024 End: 05-15-2024 ambulatory Eleanor Patti Facility:[facility] Start: 06-29-2023 End: 06-29-2023 Annotation/Addendum Eleanor Patti DO Work Phone: [facility] Start: 03-18-2023 End: 03-18-2023 Patient encounter procedure Sarkis Georgetownjoseph TERAN [facility] Start: 02-21-2023 End: 02-21-2023 Office outpatient visit 15 minutes Eleanor Patti DO Work Phone: [facility] Start: 01-20-2023 ambulatory Eleanor Patti DO [facility] Start: 01-20-2023 End: 01-20-2023 Office outpatient visit 25 minutes Eleanor Patti DO Work Phone: [facility] Start: 11-18-2022 End: 11-18-2022 Office outpatient visit 15 minutes Eleanor Patti DO Work Phone: [facility] Start: 10-21-2022 Review Eleanor Fearo n DO Work Phone: [facility] Start: 10-21-2022 End: 10-22-2022 Office outpatient visit 15 minutes Eleanor Patti DO Work Phone: [facility] Start: 03-24-2022 End: 03-25-2022 Office outpatient visit 25 minutes Eleanor Armstrong DO Work Phone: [facility] Start: 03-05-2022 End: 03-05-2022 Annotation/Addendum Eleanor Armstrong DO Work Phone: [facility] Start: 03-04-2022 End: 03-04-[address] Eleanor Armstrong Work Phone: [facility] Start: 03-04-2022 End: 03-04-[address] Eleanor Armstrong Work Phone: [facility] Start: 03-03-[address] Ashanti Armstrong Work Phone: [facility] Start: 03-01-2022 End: 03-01-2022 Office outpatient visit 25 minutes Eleanor Armstrong DO Work Phone: [facility] Start: 01-22-2022 End: 01-22-[address] Eleanor Armstrong Work Phone: [facility] Start: 01-21-2022 End: 01-21-[address] Eleanor Armstrong Work Phone: [facility] Start: 01-06-2022 End: 01-06-[address] Eleanor Armstrong Work Phone: [facility] Start: 11-20-2021 End: 11-20-2021 Office outpatient visit 15 minutes Eleanor Armstrong DO Work Phone: [facility] Start: 10-28-2021 End: 10-28-2021 Office outpatient visit 25 minutes Eleanor Armstrong DO Work Phone: [facility] Start: 10-27-2021 End: 10-27-[address] Eleanor Patti Work Phone: [facility] Start: 09-24-2021 End: 09-24-2021 Office outpatient visit 25 minutes Eleanor Patti DO Work Phone: [facility] Start: 09-02-2021 End: 09-02-2021 Office outpatient visit 15 minutes Eleanor Patti DO Work Phone: [facility] Start: 08-21-2021 End: 08-21-2021 Subsequent hospital visit by physician MARQUIS SANDRA Comment on above: M54.10 Start: 07-16-2021 End: 07-16-2021 Office outpatient visit 15 minutes Eleanor Patti DO Work Phone: [facility] Start: 06-22-2021 End: 06-22-2021 Office outpatient visit 5 minutes Eleanor Patti DO Work Phone: [facility] Start: 06-19-2021 End: 06-19-2021 Office outpatient visit 25 minutes Eleanor Patti DO Work Phone: [facility] Start: 02-25-2021 End: 02-25-2021 Office outpatient visit 10 minutes Eleanor Patti DO Work Phone: [facility] Start: 02-25-2021 Review Eleanor Fearo n DO Work Phone: [facility] Start: 02-18-2021 End: 02-18-2021 Office outpatient visit 15 minutes Eleanor Aptti DO Work Phone: [facility] Start: 02-18-2021 Review Eleanor Fearo n DO Work Phone: [facility] Start: 08-13-2020 End: 08-13-2020 Office outpatient new 20 minutes Eleanor Patti [facility] Start: 09-29-2016 End: 09-29-2016 Office outpatient visit 10 minutes Eleanor Patti [facility] Start: 09-29-2016 End: 09-29-2016 Preprocedural examination done Eleanor Patti DO Work Phone: [facility] Start: 07-30-2014 End: 07-30-2014 Office outpatient visit 15 minutes Eleanor Armstrong [facility] Start: 06-28-2014 End: 06-28-2014 Office outpatient new 30 minutes Eleanor Armstrong [facility] Preprocedural examination done Daryl Torres [facility]; [facility] Work Phone: Preprocedural examination done [facility]; [facility] Work Phone: Preprocedural examination done [facility]; [facility] Work Phone: Preprocedural examination done [facility]; [facility] Work Phone: Preprocedural examination done [facility]; [facility] Work Phone: Preprocedural examination done [facility]; [facility] Work Phone: Preprocedural examination done [facility]; [facility] Work Phone: Preprocedural examination done [facility]; [facility] Work Phone: Preprocedural examination done [facility]; [facility] Work Phone: Preprocedural examination done [facility]; [facility] Work Phone: Preprocedural examination done Charlee Sosa MA [facility]; [facility] Work Phone: Preprocedural examination done [facility]; [facility] Work Phone: Preprocedural examination done [facility]; [facility] Work Phone: Procedures Date Procedure Procedure Detail Performing Clinician Start: 05-06-[address] Ashanti Armstrong DO Work Phone: Start: 04-05-2025 Screening mammography Jasmyn Armstrong DO Work Phone: Start: 03-11-2025 MRI of lumbar spine Dr. Eleanor Armstrong DO Work Phone: Start: 02-16-[address] Eleanor Armstrong DO Work Phone: Start: 02-15-2025 MRI of brain without contrast Dr. Eleanor Armstrong DO Work Phone: Start: 02-15-2025 Urnls dip stick/tablet reagent auto microscopy Dr. Eleanor Armstrong DO Work Phone: Start: 02-15-2025 CT angiography of head and neck Dr. Eleanor Armstrong DO Work Phone: Start: 02-15-2025 CT of head without contrast Dr. Eleanor Armstrong DO Work Phone: Start: 02-15-[address] Eleanor Armstrong DO Work Phone: Start: 12-18-2024 Folic acid measurement, RBC Dr. Eleanor Armstrong DO Work Phone: Start: 12-18-2024 Urine lambda light chain measurement Dr. Eleanor Armstrong DO Work Phone: Start: 04-05-2023 End: 06-28-2023 Neurology Visit Report Procedure Note: See Note; NOTES: [facility] [address] [place] [address], [address] [place] [address] OFFICE VISIT Date of Service: 04/05/23 MR#: [id number] Acct: [id number] Name: ANTHONY CHAUDHARY Rep #: [id number] : 1955 Provider: Dr. Jac jaime MD Age/Sex: 67/F Location: [facility]. 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 Accompanied by: Self Allergies No Known Allergies Allergy (Verified 04/05/23 13:23) PFSH Medical History Acute bronchitis, unspecified Anemia COVID-19 Neck pain Shoulder pain Surgical History No history of previous surgery Family History Mother Non-Hodgkin lymphoma Father Alzheimer disease Sister Bone cancer CVA (cerebral vascular accident) Grandfather Myocardial infarction Grandfather Myocardial infarction Social History (Updated 11/08/22 @ 11:34 by Jane Conley) Smoking Status: Never smoker second hand exposure: No alcohol intake: current details: socially substance use type: does not use deshaun/scientology: Bahai seatbelt use: always HPI HPI Chief Complaint: Details: Interim History: Anthony returns for follow-up visit. She has a history of hypertension. She initially presented for evaluation of right lower extremity weakness. While horseback riding in January 2021, she noticed having difficulty everting the right foot. Earlier in January 2021, she had developed some right calf region cramping for which she was treated with a methylprednisolone taper and cyclobenzaprine and this apparently resolved. Her right foot weakness has improved over time and no right foot weakness is noted on exam today. She has not had radicular pain in the right lower extremity. She has had mild occasional low back pain in the past. She denied having numbness, weakness or pain in the arms or left lower extremity. She denied having numbness in the right leg. 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 An EMG/nerve conduction study (06/2021) revealed findings suggestive of a partial peroneal neuropathy versus L5 radiculopathy with decreased right amplitude of the peroneal motor nerve, normal peroneal nerve conduction velocity and denervation of the right tibialis anterior muscle and extensor hallucis longus muscle; no sensory nerve abnormality was noted; no paraspinal denervation was noted. Due to the possibility of an L5 radiculopathy, a lumbar MRI was performed (08/2021); multilevel degenerative disc and joint changes were noted which, per her orthopedic surgery note, was most pronounced at L5-S1 causing mild bilateral foraminal narrowing at this level. She had a right L5-S1 transforaminal epidural steroid injection in September 2021; this did not produce any change in her symptoms. She has been involved in horseback riding and at one point was riding daily, though in Summer 2020 she reduced her riding time to about 3x/week and later stopped riding horses. As part of her riding gear, she had worn a half chap, which produced pressure in the posterior fibular head region. She also had frequently crossed her legs when seated, and has been attempting to break that habit. 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 A vitamin B12, folate, TSH, thiamine, CMP, and ESR were unremarkable. Her her serum free light chains were mildly elevated.??? Around October 2021, she reported the development of other neurological symptoms consistent with Parkinson's disease. She has had a tremor affecting the upper extremities and lower extremities. She has noticed a feeling of stiffness in her arms and legs. She has had slowing and shuffling of her gait. The slowing of her gait worsened over time. She has developed hypophonia and micrographia. She has experienced some postural instability. Within recent months she has had multiple falls. She has had some freezing episodes. She has never been treated with neuroleptics or metoclopramide. She has a sister with Parkinson's disease. In January 2022, she was started on ropinirole; she typically had forgotten to take a midday dose of ropinirole. She had some improvement of her handwriting following initiation of ropinirole otherwise she has not noticed any significant improvement of her parkinsonian symptoms. Increasing her dose of ropinirole from 1 mg twice daily to 2 mg twice daily has not been of added benefit. Azilect 0.5 mg daily was not of symptomatic benefit and was discontinued. 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 She has been taking omega-3. She attends a physical therapy program for Parkinson's disease and this has been of benefit. She reported having mild memory difficulty. She feels that her memory has slightly improved within recent months. A B12 injection was not of benefit for her fatigue. A head MRI (August 2021) revealed scattered patchy areas of increased T2 and FLAIR signal present in the supraventricular white matter, likely representing mild chronic microvascular ischemia; no significant volume loss for age; no evidence of diffuse axonal injury or acute infarct; no acute abnormality involving the cerebellum or midbrain. Images of her head MRI and lumbar MRI are presently not available. She had a COVID-19 infection in October 2022 and had increased fatigue as a result of this. She has a prior history of right plantar fasciitis and uses shoe orthotics. She has some right plantar foot tenderness presently. Physical Exam: Neuro: The patient is awake and alert and responds appropriately; speech is fluent but hypophonic; she exhibits a masklike face; mild rigidity is noted in the right wrist with distraction; moderate rigidity is noted in the left wrist with distraction; and intermittent right hand tremor is noted; gait is slow and short stepped and posture is somewhat stooped; she is oriented to day of the week; she is able to subtract 7 from 100; motor strength is 5/5 in the quadriceps bilaterally and foot dorsiflexors bilaterally Neck: No bruits Heart: Regular rate and rhythm Extremities: Tenderness is noted over the right plantar surface of the foot Supplemental Info MRI right ankle (07/07/2021): Low-grade peroneus longus tendinosis, without tear. EMG/nerve conduction study of right lower extremity (07/14/2021): Findings: The right lower extremity superficial peroneal and sural nerve action potentials are normal. The right peroneal motor amplitude is decreased. The right peroneal motor conduction velocity is normal. Monopolar needle examination reveals neuropathic changes in the extensor houses longus and tibialis anterior muscles. More proximal muscles including lumbar paraspinal muscles tested normally. Impression: Although a partial peroneal mononeuropathy cannot be entirely ruled out this study is most consistent with right L5 radicular changes. This is based upon normal-appearing perineal sensory responses associated with the neuropathic changes in the perineal/L5 myotome. Lumbar MRI (08/21/2021): Radiologist report: Scoliosis and multilevel spondylosis as detailed greater in the lower spine, without significant spinal canal stenosis. L1-2: Moderate facet arthropathy. Moderate bilateral foraminal narrowing no spinal canal stenosis. L2-3 moderate facet arthropathy. No significant spinal canal stenosis. Mild lateral recess narrowing. No foraminal narrowing. L3-4 circumferential bulge eccentric to the right with moderate facet arthropathy and ligamentum flavum hypertrophy. Mild spinal canal stenosis. No foraminal narrowing. L4-5 circumferential bulge with superimposed central inferiorly migrated extrusion, facet arthropathy and ligamentum flavum hypertrophy. No significant spinal canal stenosis. No right foraminal narrowing. Mild left foraminal narrowing. L5-S1: Small articular bone protrusion and/or endplate osteophyte facet arthropathy. No spinal canal stenosis. Mild bilateral foraminal narrowing. Sacrum and iliac wings: Degenerative changes of SI joints. Orthopedic surgeon report from office note: At L5-S1 there is moderate loss of disc height and signal. Mild broad posterior disc bulge. No central canal stenosis. Mild facet arthropathy. Mild to moderate right subarticular stenosis. Minimal right foraminal stenosis. No left subarticular or foraminal stenosis. At L4-5 there is moderate loss of disc height and signal. Mild posterior disc bulge. No central canal stenosis. Mild facet arthrosis. No subarticular or foraminal stenosis. At L3-4 there is mild loss of disc height and signal. Minimal posterior disc bulge. No central canal stenosis. Mild to moderate facet arthrosis. No subarticular or foraminal stenosis. At L2-3, L1-2 there is minimal loss of disc height and signal. Minimal posterior disc bulge. No central canal stenosis. Mild facet arthrosis. No subarticular or foraminal stenosis. Head MRI (08/21/2021): Findings: No acute intracranial hemorrhage. No evidence of diffuse axonal injury or acute infarct. No acute abnormality involving the cerebellum or midbrain. No evidence of prior parenchymal hemorrhage, intracranial mass or extra-axial fluid collection. Scattered patchy areas of increased T2 and FLAIR signal are present in the supratentorial white matter which is a nonspecific finding but likely represents mild chronic microvascular ischemia. No significant volume loss for age. Normal caliber and morphology of ventricles. Small left-sided choroid plexus xanthogranuloma is noted. Major intracranial arterial structures and dural venous sinuses show typical flow-void suggesting patency. Impression: No MRI evidence of an acute intracranial process. EMG/nerve conduction studies of the right lower extremity (01/06/22): Electrodiagnostic findings: Right peroneal motor nerve demonstrates normal distal latency with borderline reduced amplitude and normal conduction velocity. Normal right tibial motor response. Normal tibial and peroneal F-wave. H reflex normal bilaterally. Absent right sural and medial plantar responses. Normal right superficial peroneal latency. Needle EMG, 1+ polyphasic motor unit action potentials are noted in the right anterior tibialis and right peroneus longus. Electrodiagnostic impression: This is an abnormal study. 1. Electrodiagnostic findings are suggestive of chronic denervation in the right L5 distribution. 2. Absence of sensory responses and borderline reduced right peroneal motor amplitude may be suggestive of early polyneuropathy. Would consider testing of the alternate limb and potentially one upper limb for more definitive diagnosis. 3. No electrodiagnostic evidence is noted for lumbosacral radiculopathy. Labs (01/22/2022): CBC: WBC 3.3 (L), RBC 3.86 (L) ESR: Normal CMP: BUN 24 (H) Folate: Unremarkable Thiamine: Normal Vitamin B12: 588 (normal) TSH: Normal Pablo Pena lambda light chains: Free kappa light chains 20.4 (H) Serum protein electrophoresis, serum immunofixation, urine immunofixation (03/04/2022): M spike not observed. No monoclonality detected Magnesium, iron, ferritin (03/04/2022): Normal. 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 Right lower extremity EMG/nerve conduction study identified a partial peroneal motor mononeuropathy versus a right L5 radiculopathy. Her lumbar MRI revealed mild bilateral L5-S1 foraminal stenosis due to degenerative joint and disc disease. She was evaluated by an orthopedic surgeon and had a right L5-S1 epidural steroid injection; this did not produce any change in her symptoms. Her initial EMG/nerve conduction studies did not reveal any lower extremity sensory nerve involvement, conduction velocity slowing or lumbar paraspinal muscle denervation. A subsequent EMG/nerve conduction study (December 2021) revealed chronic denervation in the right L5 distribution and absent right sural and medial plantar sensory responses and borderline reduced right peroneal motor amplitude that may be suggestive of an early polyneuropathy. 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 She has had improvement of her right lower extremity weakness and on exam today no weakness in right foot movement is noted. She stopped riding horses. A serum free light chains was abnormal. A subsequent serum immunofixation, urine immunofixation and serum protein electrophoresis were normal. No motor deficits are noted on foot dorsiflexion today. - Her course will be followed. She has mild Parkinson's disease. Her symptoms began earlier in 2021. She has had slowing and shuffling of her gait, a tremor affecting all extremities, hypophonia and has micrographia. She has some postural instability and has had multiple falls within recent months. Her gait had slowed further. Ropinirole has not been of significant benefit apart from the patient initially reporting some improvement of her micrographia. Increasing her dose of ropinirole from 1 mg twice daily to 2 mg twice daily was not of added benefit (due to a prior pattern of missing midday doses a 3 times a day dosing regimen of ropinirole is no longer prescribed). Azilect was not of symptomatic benefit. She had a COVID-19 infection in September/early October 2022 and has had associated fatigue and recent increased gait difficulty. - Treatment options were discussed including initiation of carbidopa/levodopa. She did not wish to initiate carbidopa/levodopa at this time. - Ropinirole 2 mg twice daily will be continued for the present time (TID dosing will not be prescribed due to the patient's pattern of missing midday doses when TID dosing was previously prescribed. - She is attending a physical therapy program for Parkinson's disease and this has been of benefit for her mobility. - The patient states that she is being treated by a cost control analyst for her parkinsonian symptoms and she wishes to continue with this treatment plan. She reports having mild memory difficulty. I suspect she has mild cognitive impairment (MCI). This may possibly related to her Parkinson's disease. She feels that her memory has slightly improved within recent months. - Her course will be followed. She has anxiety. - She takes citalopram. She has a prior history of right plantar fasciitis and uses shoe orthotics. She has some right plantar foot tenderness presently. - She did not wish to initiate any other treatment at this time for her right foot pain and indicates that this is not a prominent symptom presently. She has hypertension and reports that her blood pressure control has been improved following addition of lisinopril to her hydrochlorothiazide therapy. Due to her history of rising multiple times during the night to urinate, hydrochlorothiazide was subsequently discontinued however no change in her nighttime urinary pattern was noted. She is taking a medication for bladder control (she does not recall the name); she does not feel this has been of significant benefit. I will have her return for reassessment in 5 months. 04/05/23 0444 <Electronically signed by Jac Truong MD> Date Jac Truong MD Cosigner Signature: Date (if applicable) CC: Eleanor Patti DO Work Phone: Start: 11-08-2022 End: 11-09-2022 Neurology Visit Report Procedure Note: See Note; NOTES: [facility] [address] [place] [address], [address] [place] [address] OFFICE VISIT Date of Service: 11/08/22 MR#: [id number] Acct: [id number] Name: ANTHONY CHAUDHARY Rep #: [id number] : 1955 Provider: Dr. Jac jaime MD Age/Sex: 67/F Location: [facility] Status: Signed Intake Vital Signs 11/08/22 11:17 Height 5 ft 5 in Weight: 111 lb 10 oz BMI 18.6 BP 112/70 Blood Pressure Location Lt brachial Position Sitting Respiration 16 Pulse 66 Pulse Source Monitor Temp 98.4 F Temp Source Temporal Pulse Oximetry (%) 99 Oxygen Delivery Method room air Intake Visit Reasons: 5 M FU Chief Complaint: Parkinson - Weakness Postal Service Mail Processor Required: No Accompanied by: Self Is patient in pain?: No Allergies No Known Allergies Allergy (Verified 11/08/22 11:30) Medications Bio C 2 cap PO DAILY 10/27/21 [History Confirmed 11/08/22] Bio M for Women - MultiMineral 1 cap PO DAILY 10/27/21 [History Confirmed 11/08/22] Neutraview 1 cap PO DAILY 10/27/21 [History Confirmed 11/08/22] magnesium 200 mg tablet 200 mg PO DAILY 10/27/21 [History Confirmed 11/08/22] potassium chloride 10 mEq capsule,extended release 10 meq PO DAILY 10/27/21 [History Confirmed 11/08/22] vitamin D3 250 mcg (10,000 unit)-vitamin K2 45 mcg capsule 1 cap PO DAILY 10/27/21 [History Confirmed 11/08/22] cataplex B core PO BID 01/21/22 [History Confirmed 11/08/22] neurotrophin PO TID 01/21/22 [History Confirmed 11/08/22] lisinopril 10 mg tablet 10 mg PO DAILY 03/04/22 [History Confirmed 11/08/22] taurine 1,000 mg capsule 1,000 mg PO DAILY 03/04/22 [History Confirmed 11/08/22] dexamethasone 6 mg tablet 6 mg PO DAILY #5 tabs 10/06/22 [Rx Confirmed 11/08/22] citalopram 10 mg tablet (Celexa) 10 mg PO DAILY 11/08/22 [History Confirmed 11/08/22] coenzyme Q10 30 mg capsule 30 mg PO DAILY 11/08/22 [History Confirmed 11/08/22] multivit,stress formula-zinc tablet tab PO DAILY 11/08/22 [History Confirmed 11/08/22] multivitamin no.34-folic acid 1 mg-NADH 5 fm-kqeiznziif-12 mg tablet tab PO BID 11/08/22 [History Confirmed 11/08/22] omega-3 fatty acids 1,000 mg capsule 1,000 mg PO DAILY 11/08/22 [History Confirmed 11/08/22] vitamin C 500 mg-quercetin 250 mg-bioflavonoids, citrus 33 mg capsule (Quercetin Complex) cap PO DAILY 11/08/22 [History Confirmed 11/08/22] ropinirole 2 mg tablet 2 mg PO BID #60 tabs 11/09/22 [Rx Confirmed 11/09/22] PFSH Medical History Acute bronchitis, unspecified Anemia COVID-19 Neck pain Shoulder pain Surgical History No history of previous surgery Family History Mother Non-Hodgkin lymphoma Father Alzheimer disease Sister Bone cancer CVA (cerebral vascular accident) Grandfather Myocardial infarction Grandfather Myocardial infarction Social History (Updated 11/08/22 @ 11:34 by Jane Conley) Smoking Status: Never smoker second hand exposure: No alcohol intake: current details: socially substance use type: does not use deshaun/scientology: Bahai seatbelt use: always HPI HPI Chief Complaint: Parkinson - Weakness Details: Interim History: Anthony returns for follow-up visit. She has a history of hypertension. She initially presented for evaluation of right lower extremity weakness. While horseback riding in January 2021, she noticed having difficulty everting the right foot. Earlier in January 2021, she had developed some right calf region cramping for which she was treated with a methylprednisolone taper and cyclobenzaprine and this apparently resolved. Her right foot weakness has improved over time and no right foot weakness is noted on exam today. She has not had radicular pain in the right lower extremity. She has had mild occasional low back pain in the past. She denied having numbness, weakness or pain in the arms or left lower extremity. She denied having any numbness in the right leg. A right ankle MRI (06/2021) revealed low-grade peroneus longus tendinosis, without tear. An EMG/nerve conduction study (06/2021) revealed findings suggestive of a partial peroneal neuropathy versus L5 radiculopathy with decreased right amplitude of the peroneal motor nerve, normal peroneal nerve conduction velocity and denervation of the right tibialis anterior muscle and extensor hallucis longus muscle; no sensory nerve abnormality was noted; no paraspinal denervation was noted. Due to the possibility of an L5 radiculopathy, a lumbar MRI was performed (08/2021); multilevel degenerative disc and joint changes were noted which, per her orthopedic surgery note, was most pronounced at L5-S1 causing mild bilateral foraminal narrowing at this level. She had a right L5-S1 transforaminal epidural steroid injection in September 2021; this did not produce any change in her symptoms. She has been involved in horseback riding and at one point was riding daily, though in Summer 2020 she reduced her riding time to about 3x/week and within recent months she has not ridden a horse. As part of her riding gear, she had worn a half chap, which she stated produced pressure in the posterior fibular head region. She also had frequently crossed her legs when seated, and has been attempting to break that habit. 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 A vitamin B12, folate, TSH, thiamine, CMP, and ESR were unremarkable. Her RBC count was low and her serum free light chains were mildly elevated.??? A head MRI (August 2021) revealed scattered patchy areas of increased T2 and FLAIR signal present in the supraventricular white matter, likely representing mild chronic microvascular ischemia; no significant volume loss for age; no evidence of diffuse axonal injury or acute infarct; no acute abnormality involving the cerebellum or midbrain. Images of her head MRI and lumbar MRI are presently not available. Around October 2021, she reported the development of other neurological symptoms consistent with Parkinson's disease. She has had a tremor affecting the upper extremities and lower extremities. She has noticed a feeling of stiffness in her arms and legs. She has had slowing and shuffling of her gait. She has developed hypophonia and micrographia. She has experienced some postural instability. She has never been treated with neuroleptics or metoclopramide. She has a sister with Parkinson's disease. In January 2022, she was started on ropinirole; she typically forgets to take a midday dose of ropinirole and is currently taking ropinirole 1 mg twice daily. She does not feel this has been of noticeable benefit for her symptoms apart from having some improvement of her handwriting following initiation of ropinirole. She feels that her gait has slowed further within recent months. She has been taking Azilect 0.5 mg daily and has not noticed any symptomatic improvement with this medication. She has made dietary changes under the direction of a state farm agent team member and reports that she feels constitutionally better. She has been taking omega-3. She has attended a physical therapy program for Parkinson's disease and this has been of benefit. She reports having mild memory difficulty. A B12 injection was not of benefit for her fatigue. She had a COVID-19 infection in September/early October 2022 and has had increased fatigue as a result of this and this may have contributed to her recent increased slowing of her gait. Physical Exam: Neuro: The patient is awake and alert and responds appropriately; speech is fluent; she is oriented to day of the week; she is able to subtract 7 from 100; she was able to correctly state that yesterday was Tuesday; mild to moderate rigidity is noted in the wrists with distraction; gait is mildly slow; posture is slightly stooped; she exhibits decreased arm swing bilaterally; motor strength is 5/5 in the right foot dorsiflexors, right foot eversion and right foot inversion Neck: No bruits Heart: Regular rate and rhythm Supplemental Info MRI right ankle (07/07/2021): Low-grade peroneus longus tendinosis, without tear. EMG/nerve conduction study of right lower extremity (07/14/2021): Findings: The right lower extremity superficial peroneal and sural nerve action potentials are normal. The right peroneal motor amplitude is decreased. The right peroneal motor conduction velocity is normal. Monopolar needle examination reveals neuropathic changes in the extensor houses longus and tibialis anterior muscles. More proximal muscles including lumbar paraspinal muscles tested normally. Impression: Although a partial peroneal mononeuropathy cannot be entirely ruled out this study is most consistent with right L5 radicular changes. This is based upon normal-appearing perineal sensory responses associated with the neuropathic changes in the perineal/L5 myotome. Lumbar MRI (08/21/2021): Radiologist report: Scoliosis and multilevel spondylosis as detailed greater in the lower spine, without significant spinal canal stenosis. L1-2: Moderate facet arthropathy. Moderate bilateral foraminal narrowing no spinal canal stenosis. L2-3 moderate facet arthropathy. No significant spinal canal stenosis. Mild lateral recess narrowing. No foraminal narrowing. L3-4 circumferential bulge eccentric to the right with moderate facet arthropathy and ligamentum flavum hypertrophy. Mild spinal canal stenosis. No foraminal narrowing. L4-5 circumferential bulge with superimposed central inferiorly migrated extrusion, facet arthropathy and ligamentum flavum hypertrophy. No significant spinal canal stenosis. No right foraminal narrowing. Mild left foraminal narrowing. L5-S1: Small articular bone protrusion and/or endplate osteophyte facet arthropathy. No spinal canal stenosis. Mild bilateral foraminal narrowing. Sacrum and iliac wings: Degenerative changes of SI joints. Orthopedic surgeon report from office note: At L5-S1 there is moderate loss of disc height and signal. Mild broad posterior disc bulge. No central canal stenosis. Mild facet arthropathy. Mild to moderate right subarticular stenosis. Minimal right foraminal stenosis. No left subarticular or foraminal stenosis. At L4-5 there is moderate loss of disc height and signal. Mild posterior disc bulge. No central canal stenosis. Mild facet arthrosis. No subarticular or foraminal stenosis. At L3-4 there is mild loss of disc height and signal. Minimal posterior disc bulge. No central canal stenosis. Mild to moderate facet arthrosis. No subarticular or foraminal stenosis. At L2-3, L1-2 there is minimal loss of disc height and signal. Minimal posterior disc bulge. No central canal stenosis. Mild facet arthrosis. No subarticular or foraminal stenosis. Head MRI (08/21/2021): Findings: No acute intracranial hemorrhage. No evidence of diffuse axonal injury or acute infarct. No acute abnormality involving the cerebellum or midbrain. No evidence of prior parenchymal hemorrhage, intracranial mass or extra-axial fluid collection. Scattered patchy areas of increased T2 and FLAIR signal are present in the supratentorial white matter which is a nonspecific finding but likely represents mild chronic microvascular ischemia. No significant volume loss for age. Normal caliber and morphology of ventricles. Small left-sided choroid plexus xanthogranuloma is noted. Major intracranial arterial structures and dural venous sinuses show typical flow-void suggesting patency. Impression: No MRI evidence of an acute intracranial process. EMG/nerve conduction studies of the right lower extremity (01/06/22): Electrodiagnostic findings: Right peroneal motor nerve demonstrates normal distal latency with borderline reduced amplitude and normal conduction velocity. Normal right tibial motor response. Normal tibial and peroneal F-wave. H reflex normal bilaterally. Absent right sural and medial plantar responses. Normal right superficial peroneal latency. Needle EMG, 1+ polyphasic motor unit action potentials are noted in the right anterior tibialis and right peroneus longus. Electrodiagnostic impression: This is an abnormal study. 1. Electrodiagnostic findings are suggestive of chronic denervation in the right L5 distribution. 2. Absence of sensory responses and borderline reduced right peroneal motor amplitude may be suggestive of early polyneuropathy. Would consider testing of the alternate limb and potentially one upper limb for more definitive diagnosis. 3. No electrodiagnostic evidence is noted for lumbosacral radiculopathy. Labs (01/22/2022): CBC: WBC 3.3 (L), RBC 3.86 (L) ESR: Normal CMP: BUN 24 (H) Folate: Unremarkable Thiamine: Normal Vitamin B12: 588 (normal) TSH: Normal Pablo Pena lambda light chains: Free kappa light chains 20.4 (H) Serum protein electrophoresis, serum immunofixation, urine immunofixation (03/04/2022): M spike not observed. No monoclonality detected Magnesium, iron, ferritin (03/04/2022): Normal. 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 Right lower extremity EMG/nerve conduction study identified a partial peroneal motor mononeuropathy versus a right L5 radiculopathy. Her lumbar MRI revealed mild bilateral L5-S1 foraminal stenosis due to degenerative joint and disc disease. She was evaluated by an orthopedic surgeon and had a right L5-S1 epidural steroid injection; this did not produce any change in her symptoms. Her initial EMG/nerve conduction studies did not reveal any lower extremity sensory nerve involvement, conduction velocity slowing or lumbar paraspinal muscle denervation. A subsequent EMG/nerve conduction study (December 2021) revealed chronic denervation in the right L5 distribution and absent right sural and medial plantar sensory responses and borderline reduced right peroneal motor amplitude that may be suggestive of an early polyneuropathy. 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 She had reduced her horseback riding and has not with no course within recent months and had improvement of her right lower extremity weakness and on exam today no weakness in right foot movement is noted. A serum free light chains was abnormal. A subsequent serum immunofixation, urine immunofixation and serum protein electrophoresis were normal. No motor deficits are noted on foot dorsiflexion today. - Her course will be followed. She has mild Parkinson's disease. Her symptoms began earlier in 2021. She has had slowing and shuffling of her gait, a tremor affecting all extremities, hypophonia and has micrographia. She also described having vague postural instability. She is taking ropinirole 1 mg twice daily daily and does not feel that this has been of significant benefit though she had previously reported she has had some improvement of her micrographia following initiation of ropinirole. Azilect has not produced symptomatic benefit. She had a COVID-19 infection in September/early October 2022 and has had associated fatigue and recent increased gait difficulty. She remains able to ambulate independently. - Ropinirole will be increased to 2 mg twice daily (TID dosing will not be prescribed due to the patient's pattern of missing midday doses when TID dosing was previously prescribed. - Azilect will be discontinued. - She has attended a physical therapy program for Parkinson's disease and this has been of benefit for her mobility. She reports having mild memory difficulty. I suspect she has mild cognitive impairment (MCI). This may possibly related to her Parkinson's disease. - Her course will be followed. She has anxiety. - She has recently initiated citalopram. She has hypertension and reports that her blood pressure control has been improved following addition of lisinopril to her hydrochlorothiazide therapy. Due to her history of rising multiple times during the night to urinate, hydrochlorothiazide was subsequently discontinued however no change in her nighttime urinary pattern was noted. She did not wish to take a medication at this time for urinary frequency. I will have her return for reassessment in 5 months. History and physical completed, review supplemental, impression plan, billing, coding and prescriptions 11/09/22919 <Electronically signed by Jac Truong MD> Date Jac Truong MD Cosigner Signature: Date (if applicable) CC: Eleanor Armstrong DO Work Phone: Start: 10-06-2022 End: 10-06-2022 Urgent Care Visit Report Procedure Note: See Note; NOTES: [facility] [address] [place] [id number] OFFICE VISIT Date of Service: 10/06/22 MR#: [id number] Acct: [id number] Name: ANTHONY CHAUDHARY Rep #: [id number] : 1955 Provider: NUNU rich Age/Sex: 67/F Location: [facility] Status: Signed Intake Intake Visit Reasons: SORE THROAT/COUGH Chief Complaint: cough Allergies No Known Allergies Allergy (Verified 10/06/22 08:42) Medications Ageless Brain 1 tab PO DAILY 10/27/21 [History Confirmed 10/06/22] Bio C 2 cap PO DAILY 10/27/21 [History Confirmed 10/06/22] Bio M for Women - MultiMineral 1 cap PO DAILY 10/27/21 [History Confirmed 10/06/22] Bio V Multivitamin 1 tab PO DAILY 10/27/21 [History Confirmed 10/06/22] Neutraview 1 cap PO DAILY 10/27/21 [History Confirmed 10/06/22] magnesium 200 mg tablet 200 mg PO DAILY 10/27/21 [History Confirmed 10/06/22] omega-3 fatty acids 1,000 mg capsule 1,000 mg PO DAILY 10/27/21 [History Confirmed 10/06/22] potassium chloride 10 mEq capsule,extended release 10 meq PO DAILY 10/27/21 [History Confirmed 10/06/22] vitamin D3 250 mcg (10,000 unit)-vitamin K2 45 mcg capsule 1 cap PO DAILY 10/27/21 [History Confirmed 10/06/22] cataplex B core PO BID 01/21/22 [History Confirmed 10/06/22] neurotrophin PO TID 01/21/22 [History Confirmed 10/06/22] lisinopril 10 mg tablet 10 mg PO DAILY 03/04/22 [History Confirmed 10/06/22] taurine 1,000 mg capsule 1,000 mg PO DAILY 03/04/22 [History Confirmed 10/06/22] rasagiline 0.5 mg tablet (Azilect) 0.5 mg PO QAM #30 tabs 06/08/22 [Rx Confirmed 10/06/22] ropinirole 1 mg tablet 1 mg PO TID #90 tabs 06/08/22 [Rx Confirmed 10/06/22] azithromycin 250 mg tablet 250 mg PO QDAY #6 tabs 10/06/22 [Rx Confirmed 10/06/22] dexamethasone 6 mg tablet 6 mg PO DAILY #5 tabs 10/06/22 [Rx Confirmed 10/06/22] [facility] Medical History (Updated 10/06/22 @ 08:40 by Arash EDDY, PA) Acute bronchitis, unspecified Anemia COVID-19 Neck pain Shoulder pain Surgical History No history of previous surgery Family History Mother Non-Hodgkin lymphoma Father Alzheimer disease Sister Bone cancer CVA (cerebral vascular accident) Grandfather Myocardial infarction Grandfather Myocardial infarction Social History Smoking Status: Never smoker alcohol intake: current details: socially substance use type: does not use HPI HPI Chief Complaint: cough Details: ANTHONY CHAUDHARY, is a 67 F who presents to the office today for initial evaluation 48 hr h/o cough with sob. No cp. with similar URI complaints approximately a week ago which self resolved; he never was tested for influenza or COVID-19 though. Non-smoker. No lkhj-sry-rhuengb products taken to assist. No other associated symptoms and no other alleviating/aggravating factors. ROS Const Constitutional: No other (as above) Exam Const General: cooperative and no acute distress Nutritional Appearance: average body habitus Orientation: alert, awake and oriented x3 HENMT Head: normal to inspection Ears: hearing grossly normal bilaterally, external ears normal, TM's normal bilaterally and EAC's normal Nose: external nose normal, nares normal, septum normal and nasal discharge clear Face and sinus: normal facial exam and face symmetric Mouth: oral mucosae normal, lip normal, tongue normal and oropharynx normal Throat: posterior oropharynx normal, tonsils normal, uvula midline and no postnasal drainage Eyes General: appearance normal, both eyes and all related structures Neck Neck: normal visual inspection, full ROM, no lymphadenopathy, no meningeal signs and supple Neck mass: No Thyroid: thyroid normal Lymphatic: no lymphadenopathy noted Chest Chest palpation inspection: normal inspection of the chest Resp Effort Inspection: normal respiratory effort, able to speak in complete sentences and cough Quality of cough: wet (nonproductive in office today) Auscultation: Bilateral: Clear to Auscultation (w/ scant rales in bases, partially clearing with cough) Cardio Palpation: normal PMI Rate: regular rate Rhythm: regular rhythm Heart Sounds: S1 normal, S2 normal, no gallops, no murmurs and no rubs Pulses: radial pulses present GI Inspection: normal to inspection Palpation: soft, not firm, no guarding and nontender Skin General: no rashes or lesions noted Neuro General: patient alert, patient awake, patient oriented x3 and gait normal Cognition: normal cognition Speech: speech normal Gait: normal gait Motor: muscle tone normal throughout Sensory Exam: no sensory deficits noted Extrem General: normal to inspection Psych Appearance: grossly normal Mental Status: mental status grossly normal Mood: congruent mood Affect: normal affect Speech and Movement: speech and movement normal Attitude: cooperative Thought Process: normal Thought Content: normal Judgment: judgment good Coding Level of Care Code Off vis,est,level 3 Diagnoses Acute bronchitis, unspecified J20.9 COVID-19 U07.1 Assessment and Plan Assessment and Plan (1) Acute bronchitis, unspecified: Status: Acute (2) COVID-19: Status: Acute Plan: See POC COVID-19 antigen results. Patient declining Paxlovid upon offering. Decadron and azithromycin as prescribed today. Supportive measures as instructed today. Patient and spouse both aware of isolation recommendations and [facility] department notification. Follow-up with PCP in 5 to 7 days should symptoms not improve, ED sooner should symptoms only worsen or any other concerns develop. Patient and spouse both state acknowledging understanding all the above. This note was generated with [employer] dictation software. It may contain incorrect words, spelling, and punctuation that were not noted in checking the note before signing. Orders: Orders POC Rapid SARS Antigen Today Medications: New dexamethasone 6 mg PO DAILY 5 tabs 0RF azithromycin 2 tablets today, then 1 tablet daily on days 2 through 5 250 mg PO QDAY 6 tabs 0RF 10/06/22 0850 <Electronically signed by Arash EDDY> Date Arash EDDY Cosigner Signature: Date (if applicable) CC: Eleanor Armstrong DO Work Phone: Start: 06-14-2022 End: 09-26-2022 PT D/C Summary (1) Procedure Note: See Note; NOTES: [facility] [address] [place] [address] / REHABILITATION SERVICES DISCHARGE SUMMARY MR#: [id number] Acct: [id number] Name: ANTHONY CHAUDHARY Rep #: [id number] : 1955 66 From: Clemencia KING Referring Dr.: JONATHAN Chinchilla Status: REG RCR Insurance: [employer] SELF PAY INSURANCE It has been my pleasure to treat ANTHONY CHAUDHARY referred by JONATHAN Goins, with the diagnosis of Parkinson's Disease, R for a total of 11 visit(s). Discharge Date: 04/05/22 Please see the following information for a summary of their discharge status. Subjective: Pt feels that PT has helped and helped guide her in this PD journey. She has lots of exercises that she can do at home. She is depressed cause she is riding her horse but she can not ride the easy trot % Improvement: 25 Objective/Function: Discussed her discoordination riding her horse and her R leg and her tenseness with riding causing not a smooth ride. Discussed HEP and joining PD class. 4 Square 7 seconds. Able to do X 15 B standing opp arm and leg without messing up. She still has shorter strides but able to keep the movement. Pt will work on bigger strides. FGA 18 Goal 1:: I HEP Goal Progress: Goal Met Goal 2:: Decrease time on 4 square to less than 9 seconds to decrease fall risk and increase ability to move in different directions (9.64) Goal Progress: Goal Met Goal 3:: Be able to to complete 1 X 10 opp arm and leg while talking to increase dual tasking abilities Goal Progress: Goal Met Goal 4:: Increase FGA by 5 points to decrease fall risk (was score of 15 on eval) Goal Progress: Progressing Plan: DC PT to HEP Discharge Comments: DC PT to HEP If there are questions or concerns regarding this patient's physical therapy, please feel free to call me at [phone]. Thank you for the referral of this patient. Sincerely, Clemencia Stoner, MPT Balance/Gait/Functional tests - Balance/Special Test Scores Functional Gait Assessment Score: 18 % Disability: 40.0000 CATSIB Score (Max score 120 seconds): 105 Lower Extremity Functional Score: 47 <Electronically signed by Clemencia Martinez MPT> 06/14/22 [id number] CC: JONATHAN Chinchilla; Dr. Eleanor Armstrong DO Signed Eleanor Armstrong DO Work Phone: Start: 06-08-2022 End: 06-08-2022 Neurology Visit Report Procedure Note: See Note; NOTES: [facility] [address] [place] [address], [address] [place] [address] OFFICE VISIT Date of Service: 06/08/22 MR#: [id number] Acct: [id number] Name: ANTHONY CHAUDHARY Rep #: [id number] : 1955 Provider: Dr. Jac jaime MD Age/Sex: 66/F Location: [facility]. Status: Signed Intake Vital Signs 01/21/22 15:20 06/08/22 14:00 Height 5 ft 5 in 5 ft 5 in Weight: 115 lb BMI 19.1 BP 124/75 H Blood Pressure Location Lt radial Position Sitting Respiration 18 Pulse 86 Pulse Source Monitor Temp 98.4 F Temp Source Tympanic Oxygen Delivery Method room air Intake Visit Reasons: 4 M FU Chief Complaint: f/u RLE weakness and Parkinson's Postal Service Mail Processor Required: No Accompanied by: Self Is patient in pain?: No Allergies No Known Allergies Allergy (Verified 06/08/22 14:01) Medications Ageless Brain 1 tab PO DAILY 10/27/21 [History Confirmed 06/08/22] Bio C 2 cap PO DAILY 10/27/21 [History Confirmed 06/08/22] Bio M for Women - MultiMineral 1 cap PO DAILY 10/27/21 [History Confirmed 06/08/22] Bio V Multivitamin 1 tab PO DAILY 10/27/21 [History Confirmed 06/08/22] Neutraview 1 cap PO DAILY 10/27/21 [History Confirmed 06/08/22] magnesium 200 mg tablet 200 mg PO DAILY 10/27/21 [History Confirmed 06/08/22] omega-3 fatty acids 1,000 mg capsule 1,000 mg PO DAILY 10/27/21 [History Confirmed 06/08/22] potassium chloride 10 mEq capsule,extended release 10 meq PO DAILY 10/27/21 [History Confirmed 06/08/22] vitamin D3 250 mcg (10,000 unit)-vitamin K2 45 mcg capsule 1 cap PO DAILY 10/27/21 [History Confirmed 06/08/22] cataplex B core PO BID 01/21/22 [History Confirmed 06/08/22] neurotrophin PO TID 01/21/22 [History Confirmed 06/08/22] hydrochlorothiazide 25 mg tablet 25 mg PO DAILY 03/04/22 [History Confirmed 06/08/22] lisinopril 10 mg tablet 10 mg PO DAILY 03/04/22 [History Confirmed 06/08/22] taurine 1,000 mg capsule 1,000 mg PO DAILY 03/04/22 [History Confirmed 06/08/22] rasagiline 0.5 mg tablet (Azilect) 0.5 mg PO QAM #30 tabs 06/08/22 [Rx Confirmed 06/08/22] ropinirole 1 mg tablet 1 mg PO TID #90 tabs 06/08/22 [Rx Confirmed 06/08/22] PFSH Medical History Anemia Neck pain Shoulder pain Surgical History No history of previous surgery Family History Mother Non-Hodgkin lymphoma Father Alzheimer disease Sister Bone cancer CVA (cerebral vascular accident) Grandfather Myocardial infarction Grandfather Myocardial infarction Social History Smoking Status: Never smoker alcohol intake: current details: socially substance use type: does not use HPI HPI Chief Complaint: f/u RLE weakness and Parkinson's Details: Interim History: Anthony returns for follow-up visit. She has a history of hypertension. She initially presented for evaluation of right lower extremity weakness. While horseback riding in January 2021, she noticed having difficulty everting the right foot. Earlier in January 2021, she had developed some right calf region cramping for which she was treated with a methylprednisolone taper and cyclobenzaprine and this apparently resolved. Her right foot weakness has improved. She has not experienced radicular pain in the right lower extremity. She has had mild occasional low back pain in the past. She denied having numbness, weakness, or pain in the arms or left lower extremity. She denied having any numbness in the right leg. A right ankle MRI (06/2021) revealed low-grade peroneus longus tendinosis, without tear. An EMG/nerve conduction study (06/2021) revealed findings suggestive of a partial peroneal neuropathy versus L5 radiculopathy with decreased right amplitude of the peroneal motor nerve, normal peroneal nerve conduction velocity and denervation of the right tibialis anterior muscle and extensor hallucis longus muscle; no sensory nerve abnormality was noted; no paraspinal denervation was noted. Due to the possibility of an L5 radiculopathy, a lumbar MRI was performed (08/2021); multilevel degenerative disc and joint changes were noted which, per her orthopedic surgery note, was most pronounced at L5-S1 causing mild bilateral foraminal narrowing at this level. She had a right L5-S1 transforaminal epidural steroid injection in September 2021; this did not produce any change in her symptoms. She has been involved in horseback riding and at one point was riding daily, though in Summer 2020 she reduced her riding time to about 3x/week. As part of her riding gear, she had worn a half chap, which she stated produced pressure in the posterior fibular head region. She also had frequently crossed her legs when seated, and has been attempting to break that habit. 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 A vitamin B12, folate, TSH, thiamine, CMP, and ESR were unremarkable. Her RBC count was low and her serum free light chains were mildly elevated.??? Her right lower extremity weakness has continued to improve. She has had gait impairment. A head MRI (August 2021) revealed scattered patchy areas of increased T2 and FLAIR signal present in the supraventricular white matter, likely representing mild chronic microvascular ischemia; no significant volume loss for age; no evidence of diffuse axonal injury or acute infarct; no acute abnormality involving the cerebellum or midbrain. (Images of her head MRI and lumbar MRI are presently not available) Around October 2021, she reported the development of other neurological symptoms concerning for Parkinson's disease. She has had a tremor affecting the upper extremities and lower extremities. She has noticed a feeling of stiffness in her arms and legs. She has had slowing and shuffling of her gait. She has developed hypophonia and micrographia. She has experienced some postural instability. She has never been treated with neuroleptics or metoclopramide. She has a sister with Parkinson's disease. In January 2022, she was started on ropinirole. She does not feel this has been of noticeable benefit for her symptoms, though she had stated her writing mildly improved following initiation of ropinirole. She has made dietary changes under the direction of a state farm agent team member and reports that she feels constitutionally better. She is taking omega-3. She is attending a physical therapy program for Parkinson's disease and this has been of benefit. She reports having mild memory difficulty. Physical Exam: Neuro: The patient is awake and alert and responds appropriately; speech is fluent; she is oriented to day of the week; she is able to subtract 7 from 100; she is able to spell world backwards; no hypophonia is noted; slight bilateral wrist rigidity is noted; she exhibits decreased arm swing when she ambulates; her posture is slightly stooped; she exhibits marginal slowing of her gait; an intermittent mild right hand and left foot tremor is noted; motor strength is 5/5 in the quadriceps bilaterally and foot dorsiflexors bilaterally Heart: Regular rate and rhythm ROS Const Constitutional: Positive for weakness; No fever(s), frequent falls or headache(s) ENT ENT: No headache(s) or difficulty swallowing Gastro GI: No difficulty swallowing Musc Musculoskeletal: Positive for abnormal gait, muscle weakness and stiffness Skin Skin: No rash Neuro Neurology: Positive for abnormal gait and weakness; No frequent falls, headache(s) or memory loss Psych Psychiatric: Positive for anxiety and No memory loss Supplemental Info MRI right ankle (07/07/2021): Low-grade peroneus longus tendinosis, without tear. EMG/nerve conduction study of right lower extremity (07/14/2021): Findings: The right lower extremity superficial peroneal and sural nerve action potentials are normal. The right peroneal motor amplitude is decreased. The right peroneal motor conduction velocity is normal. Monopolar needle examination reveals neuropathic changes in the extensor houses longus and tibialis anterior muscles. More proximal muscles including lumbar paraspinal muscles tested normally. Impression: Although a partial peroneal mononeuropathy cannot be entirely ruled out this study is most consistent with right L5 radicular changes. This is based upon normal-appearing perineal sensory responses associated with the neuropathic changes in the perineal/L5 myotome. Lumbar MRI (08/21/2021): Radiologist report: Scoliosis and multilevel spondylosis as detailed greater in the lower spine, without significant spinal canal stenosis. L1-2: Moderate facet arthropathy. Moderate bilateral foraminal narrowing no spinal canal stenosis. L2-3 moderate facet arthropathy. No significant spinal canal stenosis. Mild lateral recess narrowing. No foraminal narrowing. L3-4 circumferential bulge eccentric to the right with moderate facet arthropathy and ligamentum flavum hypertrophy. Mild spinal canal stenosis. No foraminal narrowing. L4-5 circumferential bulge with superimposed central inferiorly migrated extrusion, facet arthropathy and ligamentum flavum hypertrophy. No significant spinal canal stenosis. No right foraminal narrowing. Mild left foraminal narrowing. L5-S1: Small articular bone protrusion and/or endplate osteophyte facet arthropathy. No spinal canal stenosis. Mild bilateral foraminal narrowing. Sacrum and iliac wings: Degenerative changes of SI joints. Orthopedic surgeon report from office note: At L5-S1 there is moderate loss of disc height and signal. Mild broad posterior disc bulge. No central canal stenosis. Mild facet arthropathy. Mild to moderate right subarticular stenosis. Minimal right foraminal stenosis. No left subarticular or foraminal stenosis. At L4-5 there is moderate loss of disc height and signal. Mild posterior disc bulge. No central canal stenosis. Mild facet arthrosis. No subarticular or foraminal stenosis. At L3-4 there is mild loss of disc height and signal. Minimal posterior disc bulge. No central canal stenosis. Mild to moderate facet arthrosis. No subarticular or foraminal stenosis. At L2-3, L1-2 there is minimal loss of disc height and signal. Minimal posterior disc bulge. No central canal stenosis. Mild facet arthrosis. No subarticular or foraminal stenosis. Head MRI (08/21/2021): Findings: No acute intracranial hemorrhage. No evidence of diffuse axonal injury or acute infarct. No acute abnormality involving the cerebellum or midbrain. No evidence of prior parenchymal hemorrhage, intracranial mass or extra-axial fluid collection. Scattered patchy areas of increased T2 and FLAIR signal are present in the supratentorial white matter which is a nonspecific finding but likely represents mild chronic microvascular ischemia. No significant volume loss for age. Normal caliber and morphology of ventricles. Small left-sided choroid plexus xanthogranuloma is noted. Major intracranial arterial structures and dural venous sinuses show typical flow-void suggesting patency. Impression: No MRI evidence of an acute intracranial process. EMG/nerve conduction studies of the right lower extremity (01/06/22): Electrodiagnostic findings: Right peroneal motor nerve demonstrates normal distal latency with borderline reduced amplitude and normal conduction velocity. Normal right tibial motor response. Normal tibial and peroneal F-wave. H reflex normal bilaterally. Absent right sural and medial plantar responses. Normal right superficial peroneal latency. Needle EMG, 1+ polyphasic motor unit action potentials are noted in the right anterior tibialis and right peroneus longus. Electrodiagnostic impression: This is an abnormal study. 1. Electrodiagnostic findings are suggestive of chronic denervation in the right L5 distribution. 2. Absence of sensory responses and borderline reduced right peroneal motor amplitude may be suggestive of early polyneuropathy. Would consider testing of the alternate limb and potentially one upper limb for more definitive diagnosis. 3. No electrodiagnostic evidence is noted for lumbosacral radiculopathy. Labs (01/22/2022): CBC: WBC 3.3 (L), RBC 3.86 (L) ESR: Normal CMP: BUN 24 (H) Folate: Unremarkable Thiamine: Normal Vitamin B12: 588 (normal) TSH: Normal Pablo Pena lambda light chains: Free kappa light chains 20.4 (H) Serum protein electrophoresis, serum immunofixation, urine immunofixation (03/04/2022): M spike not observed. No monoclonality detected Magnesium, iron, ferritin (03/04/2022): Normal. 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 Right lower extremity EMG/nerve conduction study identified a partial peroneal motor mononeuropathy versus a right L5 radiculopathy. Her lumbar MRI revealed mild bilateral L5-S1 foraminal stenosis due to degenerative joint and disc disease. She was evaluated by an orthopedic surgeon and had a right L5-S1 epidural steroid injection; this did not produce any change in her symptoms. Her initial EMG/nerve conduction studies did not reveal any lower extremity sensory nerve involvement, conduction velocity slowing or lumbar paraspinal muscle denervation. A subsequent EMG/nerve conduction study performed in December 2021 revealed chronic denervation in the right L5 distribution and absent right sural and medial plantar sensory responses and borderline reduced right peroneal motor amplitude that may be suggestive of an early polyneuropathy. 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 She has reduced her horseback riding and has had improvement of her right lower extremity weakness. A serum free light chains was abnormal. A subsequent serum immunofixation, urine immunofixation and serum protein electrophoresis were normal. No motor deficits are noted on foot dorsiflexion today. - Her course will be followed. She has mild Parkinson's disease. Her symptoms began earlier in 2021. She has had slowing and shuffling of her gait, a tremor affecting all extremities, hypophonia and has micrographia. She also described having vague postural instability. She is taking ropinirole 1 mg 3 times daily and does not feel that this has been of significant benefit though she had previously reported she has had some improvement of her micrographia following initiation of ropinirole. - She is seeing a state farm agent team member and has made dietary modifications and reports that she feels constitutionally better. - Ropinirole 1 mg 3 times daily will be continued for the present time. - Azilect 0.5 mg every morning will be initiated. - She is attending physical therapy program for Parkinson's disease and this has been of benefit for her mobility. She reports having mild memory difficulty. This may possibly related to her Parkinson's disease. - Her course will be followed. She has hypertension and reports that her blood pressure control has been improved following addition of lisinopril to her hydrochlorothiazide therapy. She reports urinary frequency and arises multiple times during the night to urinate; this may be a side effect of hydrochlorothiazide. - I will have her discontinue hydrochlorothiazide and monitor her blood pressure. I will have her return for reassessment in 5 months. 06/08/221906 <Electronically signed by Jac Truong MD> Date Jac Truong MD Cosigner Signature: Date (if applicable) CC: Eleanor Armstrong DO Work Phone: Start: 04-05-2022 End: 04-06-2022 Re-Evaluation - PT (1) Comments: See Note; NOTES: [facility] [address] [place] [address]. [address] [place] [address] / REEVALUATION / MEDICARE RECERTIFICATION PHYSICAL THERAPY MR#: [id number] Acct: [id number] Name: ANTHONY CHAUDHARY Conner Rep #: [id number] : 1955 66 From: Clemencia KING Referring Dr.: JONATHAN Chinchilla Status:REG RC R Insurance: [employer] TPA SELF PAY INSURANCE Christen Cheuvront, PEDIATRIC SPEECH LANGUAGE PATHOLOGIST-C, It has been my pleasure to treat ANTHONY CHAUDHARY over the last 11 visits for Parkinson's Disease, R. Please see the progress note below for an update on the physical therapy plan of care! Subjective: Pt feels that PT has helped and helped guide her in this PD journey. She has lots of exercises that she can do at home. She is depressed cause she is riding her horse but she can not ride the easy trot Objective/Function: Discussed her discoordination riding her horse and her R leg and her tenseness with riding causing not a smooth ride. Discussed HEP and joining PD class. 4 Square 7 seconds. Able to do X 15 B standing opp arm and leg without messing up. She still has shorter strides but able to keep the movement. Pt will work on bigger strides. FGA 18 Plan Plan: DC PT to HEP Balance/Gait/Functional tests - Balance/Special Test Scores Functional Gait Assessment Score: 18 % Disability: 40.0000 CATSIB Score (Max score 120 seconds): 105 Lower Extremity Functional Score: 47 Goals Goal 1:: I HEP Goal Time Frame: 8-12 Weeks Goal Progress: Goal Met Goal 2:: Decrease time on 4 square to less than 9 seconds to decrease fall risk and increase ability to move in different directions (9.64) Goal Time Frame: 8-12 Weeks Goal Progress: Goal Met Goal 3:: Be able to to complete 1 X 10 opp arm and leg while talking to increase dual tasking abilities Goal Time Frame: 8-12 Weeks Goal Progress: Goal Met Goal 4:: Increase FGA by 5 points to decrease fall risk (was score of 15 on eval) Goal Time Frame: 8-12 Weeks Goal Progress: Progressing Anticipated Interventions Patient/Client Instruction: Educate patient on: Condition, Plan of Care For the Purpose of:: To improve muscle performance and motor function, To improve ability to perform ADL's, To improve performance and independence with ADL's, To decrease level of supervision to perf orm tasks, To improve ability of physical actions for home/community/work/leisure, To improve gait and locomotor functions, To improve health of tissue, To decrease soft tissue restriction, To increase flexibility/ROM, To improve endurance, To improve balance, To improve safety with gait Therapeutic Exercise to Include: Strength training, Endurance training, Balance training, Coordination, Body mechanics, Postural training, Flexibilty training, Gait and locomotor training, Neuromotor development, Passive ROM, Active ROM, Dynamic Lumbar Stabilization For the Purpose of:: To improve muscle performance and motor function, To improve ability to perform ADL's, To increase tolerance to activity/condition/position, To improve performance and independence with ADL's, To decrease level of supervision to perform tasks, To improve ability of physical actions for home/community/work/leisure, To improve gait and locomotor functions, To improve health of tissue, To decrease soft tissue restriction, To increase flexibility/ROM, To improve endurance, To improve balance, To improve safety with gait Functional Training to Include: Functional home training, Gait training For the Purpose of:: To improve gait and locomotor functions, To improve safety with gait Please do not hesitate to contact me at [phone] by phone or if you have questions or concerns regarding this new plan of care! Sincerely, FERNANDO Briones <Electronically signed by Clemencia KING> 04/06/22 0960 CC: JONATHAN Chinchilla; Dr. Eleanor Armstrong DO Signed For Medicare only, by signing this I certify the plan of care. Physicians Signature Date Eleanor Armstrong DO Work Phone: Start: 03-04-2022 End: 03-05-2022 Neurology Visit Report Comments: See Note; NOTES: [facility] [address] [place] [address] OFFICE VISIT Date of Service: 03/04/22 MR#: [id number] Acct: [id number] Name: ANTHONY CHAUDHARY Rep #: [id number] : 1955 Provider: JONATHAN walton Age/Sex: 66/F Location: [facility] Status: Signed Intake Vital Signs 03/04/22 08:37 Height 5 ft 5 in Weight: 113 lb BMI 18.8 BP 132/82 H Blood Pressure Location Lt brachial Position Sitting Respiration 16 Pulse 65 Pulse Source Monitor Pulse Oximetry (%) 97 Oxygen Delivery Method simple mask Intake Visit Reasons: 2 M FU Chief Complaint: f/u RLE weakness and Parkinson's Allergies No Known Allergies Allergy (Verified 03/04/22 08:52) Medications Ageless Brain 1 tab PO DAILY 10/27/21 [History Confirmed 03/04/22] Bio C 2 cap PO DAILY 10/27/21 [History Confirmed 03/04/22] Bio M for Women - MultiMineral 1 cap PO DAILY 10/27/21 [History Confirmed 03/04/22] Bio V Multivitamin 1 tab PO DAILY 10/27/21 [History Confirmed 03/04/22] Neutraview 1 cap PO DAILY 10/27/21 [History Confirmed 03/04/22] Stress Adapt Day 2 cap PO DAILY 10/27/21 [History Confirmed 03/04/22] magnesium 200 mg tablet 200 mg PO DAILY 10/27/21 [History Confirmed 03/04/22] omega-3 fatty acids 1,000 mg capsule 1,000 mg PO DAILY 10/27/21 [History Confirmed 03/04/22] potassium chloride 10 mEq capsule,extended release 10 meq PO DAILY 10/27/21 [History Confirmed 03/04/22] turmeric 400 mg capsule 400 mg PO DAILY 10/27/21 [History Confirmed 03/04/22] vitamin D3 250 mcg (10,000 unit)-vitamin K2 45 mcg capsule 1 cap PO DAILY 10/27/21 [History Confirmed 03/04/22] cataplex B core PO BID 01/21/22 [History Confirmed 03/04/22] neurotrophin PO TID 01/21/22 [History Confirmed 03/04/22] hydrochlorothiazide 25 mg tablet 25 mg PO DAILY 03/04/22 [History Confirmed 03/04/22] lisinopril 10 mg tablet 10 mg PO DAILY 03/04/22 [History Confirmed 03/04/22] ropinirole 1 mg tablet 1 mg PO TID #90 tabs 03/04/22 [Rx Confirmed 03/04/22] taurine 1,000 mg capsule 1,000 mg PO DAILY 03/04/22 [History Confirmed 03/04/22] PFSH Medical History (Updated 03/04/22 @ 09:55 by Kirsty Chinchilla PEDIATRIC SPEECH LANGUAGE PATHOLOGIST, PEDIATRIC SPEECH LANGUAGE PATHOLOGIST-C) Anemia Neck pain Shoulder pain Surgical History (Updated 03/04/22 @ 08:55 by Jane Conley) No history of previous surgery Family History Mother Non-Hodgkin lymphoma Father Alzheimer disease Sister Bone cancer CVA (cerebral vascular accident) Grandfather Myocardial infarction Grandfather Myocardial infarction Social History Smoking Status: Never smoker alcohol intake: current details: socially substance use type: does not use HPI HPI Chief Complaint: f/u RLE weakness and Parkinson's Details: Interim History: The patient returns for follow-up visit. She has a history of hypertension. She initially presented for evaluation of right lower extremity weakness. While horseback riding in January 2021, she noticed having difficulty everting the right foot. Her right foot weakness persisted. Earlier in January 2021, she had developed some right calf region cramping for which she was treated with a methylprednisolone taper and cyclobenzaprine and this apparently resolved. She otherwise has not been experiencing any right lower extremity pain. She has not experienced radicular pain in the right lower extremity. She has had mild occasional low back pain, though she denies any recent back pain. She denied having numbness, weakness, or pain in the arms or left lower extremity. She denied having any numbness in the right leg. A right ankle MRI (06/2021) revealed low-grade peroneus longus tendinosis, without tear. An EMG/nerve conduction study (06/2021) revealed findings suggestive of a partial peroneal neuropathy versus L5 radiculopathy with decreased right amplitude of the peroneal motor nerve, normal peroneal nerve conduction velocity and denervation of the right tibialis anterior muscle and extensor hallucis longus muscle; no sensory nerve abnormality was noted; no paraspinal denervation was noted. Due to the possibility of an L5 radiculopathy, a lumbar MRI was performed (08/2021); multilevel degenerative disc and joint changes were noted which, per her orthopedic note, was most pronounced at L5-S1 causing mild bilateral foraminal narrowing at this level. She was evaluated by an orthopedic surgeon. She had a right L5-S1 transforaminal epidural steroid injection in September 2021 however this did not produce any change in her symptoms. She has been involved in horseback riding and at one point was riding daily, though in Summer 2020 she reduced her riding time to about 3x/week. As part of her riding gear, she had worn a half chap, which she stated produced pressure in the posterior fibular head region. She has not resumed any regular horseback riding since October 2021. She also reports she frequently crosses her legs when seated, and has been attempting to break that habit. 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 A vitamin B12, folate, TSH, thiamine, CMP, and ESR were unremarkable. Her RBC count was low and her serum free light chains were mildly elevated.??? Her right lower extremity weakness has improved over the past several months, though she continues to report some degree of weakness in the right foot. She has had gait impairment. A head MRI was performed in August 2021, which revealed scattered patchy areas of increased T2 and FLAIR signal present in the supraventricular white matter, likely representing mild chronic microvascular ischemia; no significant volume loss for age; no evidence of diffuse axonal injury or acute infarct; no acute abnormality involving the cerebellum or midbrain. (Images of her head MRI and lumbar MRI are presently not available.) Around October 2021, she reported the development of other neurological symptoms concerning for Parkinson's disease. She has had a tremor affecting the upper extremities and lower extremities. She has noticed a feeling of stiffness in her arms and legs. She has had slowing and shuffling of her gait. She has developed hypophonia and micrographia. She has experienced some postural instability. She has never been treated with neuroleptics or metoclopramide. She has a sister with Parkinson's disease. In January 2022, she was started on ropinirole and titrated to 0.5mg TID. She does not feel this has been of noticeable benefit for her symptoms, though she states her writing has mildly improved. She has had significant anxiety regarding her recent Parkinson's diagnosis. She reports taking taurine, Ageless Brain supplements, and Stress Adapt supplements for her anxiety.??? She has never been treated with prescription medication for her anxiety. Physical Exam: General: Well-nourished, well-groomed, in no acute distress Neuro: The patient is awake and alert and responds appropriately; speech is fluent; no hypophonia is noted; PERRL 3 mm bilaterally, EOMI; face is symmetrical, tongue is midline; no drift, no dysmetria; marginal tremor of the right hand is noted; no rigidity is noted in the wrists, with or without distraction; she exhibits decreased arm swing when she ambulates; her posture is marginally stooped; she exhibits marginal slowing of her gait; motor strength is 5/5 in the quadriceps bilaterally, foot dorsiflexors bilaterally, and foot plantar flexors bilaterally HEENT: Normocephalic atraumatic Heart: Regular rate and rhythm Neck: No bruits Psych: Appropriate mood and normal affect; pleasant ROS Const Constitutional: Positive for weakness; No fever(s), frequent falls or headache(s) ENT ENT: No headache(s) or difficulty swallowing Gastro GI: No difficulty swallowing Musc Musculoskeletal: Positive for abnormal gait, muscle weakness and stiffness Skin Skin: No rash Neuro Neurology: Positive for abnormal gait and weakness; No frequent falls, headache(s) or memory loss Psych Psychiatric: Positive for anxiety and No memory loss Supplemental Info MRI right ankle (07/07/2021): Low-grade peroneus longus tendinosis, without tear. EMG/nerve conduction study of right lower extremity (07/14/2021): Findings: The right lower extremity superficial peroneal and sural nerve action potentials are normal. The right peroneal motor amplitude is decreased. The right peroneal motor conduction velocity is normal. Monopolar needle examination reveals neuropathic changes in the extensor houses longus and tibialis anterior muscles. More proximal muscles including lumbar paraspinal muscles tested normally. Impression: Although a partial peroneal mononeuropathy cannot be entirely ruled out this study is most consistent with right L5 radicular changes. This is based upon normal-appearing perineal sensory responses associated with the neuropathic changes in the perineal/L5 myotome. Lumbar MRI (08/21/2021): Radiologist report: Scoliosis and multilevel spondylosis as detailed greater in the lower spine, without significant spinal canal stenosis. L1-2: Moderate facet arthropathy. Moderate bilateral foraminal narrowing no spinal canal stenosis. L2-3 moderate facet arthropathy. No significant spinal canal stenosis. Mild lateral recess narrowing. No foraminal narrowing. L3-4 circumferential bulge eccentric to the right with moderate facet arthropathy and ligamentum flavum hypertrophy. Mild spinal canal stenosis. No foraminal narrowing. L4-5 circumferential bulge with superimposed central inferiorly migrated extrusion, facet arthropathy and ligamentum flavum hypertrophy. No significant spinal canal stenosis. No right foraminal narrowing. Mild left foraminal narrowing. L5-S1: Small articular bone protrusion and/or endplate osteophyte facet arthropathy. No spinal canal stenosis. Mild bilateral foraminal narrowing. Sacrum and iliac wings: Degenerative changes of SI joints. Orthopedic surgeon report from office note: At L5-S1 there is moderate loss of disc height and signal. Mild broad posterior disc bulge. No central canal stenosis. Mild facet arthropathy. Mild to moderate right subarticular stenosis. Minimal right foraminal stenosis. No left subarticular or foraminal stenosis. At L4-5 there is moderate loss of disc height and signal. Mild posterior disc bulge. No central canal stenosis. Mild facet arthrosis. No subarticular or foraminal stenosis. At L3-4 there is mild loss of disc height and signal. Minimal posterior disc bulge. No central canal stenosis. Mild to moderate facet arthrosis. No subarticular or foraminal stenosis. At L2-3, L1-2 there is minimal loss of disc height and signal. Minimal posterior disc bulge. No central canal stenosis. Mild facet arthrosis. No subarticular or foraminal stenosis. Head MRI (08/21/2021): Findings: No acute intracranial hemorrhage. No evidence of diffuse axonal injury or acute infarct. No acute abnormality involving the cerebellum or midbrain. No evidence of prior parenchymal hemorrhage, intracranial mass or extra-axial fluid collection. Scattered patchy areas of increased T2 and FLAIR signal are present in the supratentorial white matter which is a nonspecific finding but likely represents mild chronic microvascular ischemia. No significant volume loss for age. Normal caliber and morphology of ventricles. Small left-sided choroid plexus xanthogranuloma is noted. Major intracranial arterial structures and dural venous sinuses show typical flow-void suggesting patency. Impression: No MRI evidence of an acute intracranial process. EMG/nerve conduction studies of the right lower extremity (01/06/22): Electrodiagnostic findings: Right peroneal motor nerve demonstrates normal distal latency with borderline reduced amplitude and normal conduction velocity. Normal right tibial motor response. Normal tibial and peroneal F-wave. H reflex normal bilaterally. Absent right sural and medial plantar responses. Normal right superficial peroneal latency. Needle EMG, 1+ polyphasic motor unit action potentials are noted in the right anterior tibialis and right peroneus longus. Electrodiagnostic impression: This is an abnormal study. 1. Electrodiagnostic findings are suggestive of chronic denervation in the right L5 distribution. 2. Absence of sensory responses and borderline reduced right peroneal motor amplitude may be suggestive of early polyneuropathy. Would consider testing of the alternate limb and potentially one upper limb for more definitive diagnosis. 3. No electrodiagnostic evidence is noted for lumbosacral radiculopathy. 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 (2) Polyneuropathy: Status: Acute (3) Parkinson's disease: Status: Acute Orders: Orders Ferritin 03/04/22 D64.9 - Anemia, unspecified, G20 - Parkinson's disease, G62.9 - Polyneuropathy, unspecified, R25.2 - Cramp and spasm Iron 03/04/22 D64.9 - Anemia, unspecified, G20 - Parkinson's disease, G62.9 - Polyneuropathy, unspecified, R25.2 - Cramp and spasm Immunofixation Urine 03/04/22 D64.9 - Anemia, unspecified, G20 - Parkinson's disease, G62.9 - Polyneuropathy, unspecified, R25.2 - Cramp and spasm ROD + Protein Elect, Serum 03/04/22 D64.9 - Anemia, unspecified, G20 - Parkinson's disease, G62.9 - Polyneuropathy, unspecified, R25.2 - Cramp and spasm Magnesium 03/04/22 D64.9 - Anemia, unspecified, G20 - Parkinson's disease, G62.9 - Polyneuropathy, unspecified, R25.2 - Cramp and spasm Medications: New ropinirole 1 mg PO TID 90 tabs 2RF Discontinued ropinirole Discontinued Reason: Order Changed 1 tab PO daily for one week then 1 tab BID for one week then 1 tab TID thereafter 90 tabs 4RF Plan The patient initially presented with distal right lower extremity weakness severely affecting right foot eversion. Right lower extremity EMG/nerve conduction study identified a partial peroneal motor mononeuropathy versus a right L5 radiculopathy. Her lumbar MRI revealed mild bilateral L5-S1 foraminal stenosis due to degenerative joint and disc disease. She was evaluated by an orthopedic surgeon and had a right L5-S1 epidural steroid injection; this did not produce any change in her symptoms. Her initial EMG/nerve conduction studies did not reveal any lower extremity sensory nerve involvement, conduction velocity slowing or lumbar paraspinal muscle denervation. A subsequent EMG/nerve conduction study performed in December 2021 revealed chronic denervation in the right L5 distribution and absent right sural and medial plantar sensory responses and borderline reduced right peroneal motor amplitude that may be suggestive of an early polyneuropathy. 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 She has stopped horse riding since her last visit in October 2021 and reports improvement of her right lower extremity weakness. A vitamin B12, folate, TSH, thiamine, CMP, and ESR were unremarkable. Her RBC count was low and her serum free light chains were mildly elevated. She will be further evaluated with a iron, ferritin, urine immunofixation, and serum protein electrophoresis and serum immunofixation. A magnesium level will also be checked due to her muscle cramping. She presented with symptoms suggestive of early and mild Parkinson's disease that began earlier in 2021. She has had slowing and shuffling of her gait, a tremor affecting all extremities, hypophonia, and has micrographia. She also describes having vague postural instability. Ropinirole 0.5mg TID has been of unclear benefit for her symptoms, though it has been well tolerated. I will have her titrate to an increased dose of ropinirole 1mg TID (written titration instructions given). She has been attending physical therapy, and this has been of benefit for her mobility. She has had significant anxiety regarding her recent Parkinson's diagnosis. She reports taking taurine, Ageless Brain supplements, and Stress Adapt supplements for her anxiety. We discussed the option of pharmacologic management of her anxiety, however she does not wish to initiate any new medications at this time. I will have her return for reassessment as schedule in May 2022. Patient was advised to contact our office sooner with any questions or concerns. Thank you for this consultation. Plan Details Additional Comments: 35 minutes were spent by me on today's visit. This time includes coordinating care, reviewing labs/records/history, interpretation of test results, and counseling patient/family. This also includes time spent with the patient for exam, treatment plan, and education as well as documenting clinical information in the electronic health record. Note: [employer] speech recognition reservation sales agent software was used to create portions of this document. Sound-alike and misspelled words, as well as other reservation sales agent errors may be contained in the documentation. 03/05/22 1152 <Electronically signed by Kirsty Chinchilla NP, NP- C> Date Kirsty Chinchilla NP, NP-C Cosigner Signature: Date (if applicable) CC: Dr. Eleanor Armstrong, DO Eleanor Armstrong DO Work Phone: Start: 02-08-2022 End: 02-08-2022 Inital Evaluation (1) - PT Comments: See Note; NOTES: [facility] [place] [address] / REHABILITATION SERVICES INITIAL EVALUATION MR#: [id number] Acct: [id number] Name: ANTHONY CHAUDHARY Rep #: [id number] : 1955 66 From: Clemencia KING Referring Dr.: JONATHAN Chinchilla Status: REG RCR Insurance: [employer] SELF PAY INSURANCE Patient's Visit Information ANTHONY CHAUDHARY is a 66 year old F referred to Physical Therapy by JONATHAN Goins with a diagnosis of Parkinson's Disease, R. Date of Evaluation: 02/01/22 Physical Therapist: FERNANDO Briones - Visit Plan Frequency: 2x /Week Duration: 4 Weeks Plan: 2x/ WEEK for 4 weeks for dual tasking, balance, balance dynamic and static on foam and without foam, stretching of trunk and postural exercises, taking bigger steps with gait, with HEP. Transition to PD Plus class when able. - Subjective Pt reports that the thinks that she has PD. Pt just saw the neurologist for the second time. Pt has trouble with her Right side upper and LE extremity and posture... feels like she leans to the R side. She has had a few falls... backing up too fast and sat down and hit her head. Stairs: up and down the stairs with handrail. She gets a lot of anxiety about doing things. Sit to stand: Not too much trouble and uses her arms to push her up. She wears a lace/velcro brace outside all day on uneven ground. 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 She has not ridden her horse and that is upsetting her. - Objective A lot of time today spent on asking questions about her condition and activities at home. Gait: walks with no heel to toe gait pattern and does tend to trip on her R LE. FGA: 15. Sit to stand: able to get up with no arms but one leg under the chair. stairs; Up and down recip with 1 hand rail. Standing and sitting opp arm and leg pt was only able to do 3 in a row max and then reverted to same side arm and leg. LE MMT: B hip flex 4+/5 (some core weakness as did tend to lean against resistance), B knee flex and knee ext 4+/5, Pt is able to do 1/2 normal ROM bridge, B hip abd 4+/5. CATSIB 105/120. 4 Square 9:64 (9.68 fall risk). TUG 7:52 (good). sit to monitoring engineer 30 seconds: 10 (good). 360 turn (3:29 5 steps). Single limb R 7:92 sec (increase fall risk). Single limb L 8:82 sec (increased fall risk). Standing opp arm and le times on each side and then starts same side. - Balance/Special Test Scores Functional Gait Assessment Score: 15 % Disability: 50.0000 CATSIB Score (Max score 120 seconds): 105 Lower Extremity Functional Score: 64 - Goals Goal 1:: I HEP Goal Time Frame: 8-12 Weeks Goal 2:: Decrease time on 4 square to less than 9 seconds to decrease fall risk and increase ability to move in different directions (9.64) Goal Time Frame: 8-12 Weeks Goal 3:: Be able to to complete 1 X 10 opp arm and leg while talking to increase dual tasking abilities Goal Time Frame: 8-12 Weeks Goal 4:: Increase FGA by 5 points to decrease fall risk (was score of 15 on eval) Goal Time Frame: 8-12 Weeks - Rehabilitation Potential Rehabilitation Potential: Good - Anticipated Interventions Patient/Client Instruction: Educate patient on: Condition, Plan of Care For the Purpose of:: To improve muscle performance and motor function, To improve ability to perform ADL's, To improve performance and independence with ADL's, To decrease level of supervision to perform tasks, To improve ability of physical actions for home/community/work/leisure, To improve gait and locomotor functions, To improve health of tissue, To decrease soft tissue restriction, To increase flexibility/ROM, To improve endurance, To improve balance, To improve safety with gait Therapeutic Exercise to Include: Strength training, Endurance training, Balance training, Coordination, Body mechanics, Postural training, Flexibilty training, Gait and locomotor training, Neuromotor development, Passive ROM, Active ROM, Dynamic Lumbar Stabilization For the Purpose of:: To improve muscle performance and motor function, To improve ability to perform ADL's, To increase tolerance to activity/condition/position, To improve performance and independence with ADL's, To decrease level of supervision to perform tasks, To improve ability of physical actions for home/community/work/leisure, To improve gait and locomotor functions, To improve health of tissue, To decrease soft tissue restriction, To increase flexibility/ROM, To improve endurance, To improve balance, To improve safety with gait Functional Training to Include: Functional home training, Gait training For the Purpose of:: To improve gait and locomotor functions, To improve safety with gait Thank you for the opportunity to evaluate your patient. For Medicare and Medicare HMO plans, please review the plan of care and approve it. It will need to be FAXED BACK to us at [phone] for Medicare purposes. For Medicare only, by signing this I certify the plan of care. Please let me know if there are questions or concerns regarding this plan of care. Physician Signature: ___Date: <Electronically signed by Clemencia Martinez MPT> 02/08/22 1159 CC: JONATHAN Chinchilla; Dr. Eleanor Armstrong DO Signed Eleanor Armstrong DO Work Phone: Start: 01-21-2022 End: 01-21-2022 Neurology Visit Report Comments: See Note; NOTES: [facility] [address] [facility] [place] [address] OFFICE VISIT Date of Service: 01/21/22 MR#: [id number] Acct: [id number] Name: ANTHONY CHAUDHARY Rep #: [id number] : 1955 Provider: Dr. Jac jaime MD Age/Sex: 66/F Location: [facility]. Status: Signed Intake Vital Signs 01/21/22 15:20 Height 5 ft 5 in Weight: 117 lb 8 oz BMI 19.5 BP 130/88 H Blood Pressure Location Lt brachial Position Sitting Respiration 16 Pulse 80 Pulse Source Monitor Temp 98.4 F Temp Source Temporal Pulse Oximetry (%) 99 Oxygen Delivery Method simple mask Intake Visit Reasons: 3 M FU/ PATIENT REQUESTED Postal Service Mail Processor Required: No Accompanied by: Self Is patient in pain?: No Allergies No Known Allergies Allergy (Verified 01/21/22 15:22) Medications Ageless Brain 1 tab PO DAILY 10/27/21 [History Confirmed 01/21/22] Bio C 2 cap PO DAILY 10/27/21 [History Confirmed 01/21/22] Bio M for Women - MultiMineral 1 cap PO DAILY 10/27/21 [History Confirmed 01/21/22] Bio V Multivitamin 1 tab PO DAILY 10/27/21 [History Confirmed 01/21/22] Neutraview 1 cap PO DAILY 10/27/21 [History Confirmed 01/21/22] Queretin 2 cap PO DAILY 10/27/21 [History Confirmed 01/21/22] Stress Adapt Day 2 cap PO DAILY 10/27/21 [History Confirmed 01/21/22] magnesium 200 mg tablet 200 mg PO DAILY 10/27/21 [History Confirmed 01/21/22] omega-3 fatty acids 1,000 mg capsule 1,000 mg PO DAILY 10/27/21 [History Confirmed 01/21/22] potassium chloride 10 mEq capsule,extended release 10 meq PO DAILY 10/27/21 [History Confirmed 01/21/22] turmeric 400 mg capsule 400 mg PO DAILY cap 10/27/21 [History Confirmed 01/21/22] vitamin D3 250 mcg (10,000 unit)-vitamin K2 45 mcg capsule 1 cap PO DAILY 10/27/21 [History Confirmed 01/21/22] cataplex B core PO BID 01/21/22 [History] neurotrophin PO TID 01/21/22 [History] ropinirole 0.5 mg tablet 0.5 mg PO .COMPLEX #90 tab 01/21/22 [Rx Confirmed 01/21/22] PFSH Medical History Neck pain Shoulder pain Surgical History dislocation surgery Family History Mother Non-Hodgkin lymphoma Father Alzheimer disease Sister Bone cancer CVA (cerebral vascular accident) Grandfather Myocardial infarction Grandfather Myocardial infarction Social History Smoking Status: Never smoker alcohol intake: current details: socially substance use type: does not use HPI HPI Details: Interim History: The patient returns for follow-up visit. She has a history of hypertension an initially presented for evaluation of right lower extremity weakness. While horseback riding in January 2021 she noticed having difficulty everting the right foot and this has persisted since that time. Earlier in January 2021 she had developed some right calf region cramping for which she was treated with a methylprednisolone taper and cyclobenzaprine and this apparently resolved. She otherwise has not been experiencing any right lower extremity pain. She has not experienced radicular pain in the right lower extremity. She has had mild occasional low back pain. She denied having numbness, weakness or pain in the arms or left lower extremity. She denied having any numbness in the right leg. Her right lower extremity weakness has improved however she has had gait imbalance since 2020. A right ankle MRI revealed low-grade peroneus longus tendinosis, without tear. An EMG/nerve conduction study revealed findings suggestive of a partial peroneal neuropathy versus L5 radiculopathy with decreased right amplitude of the peroneal motor nerve, normal peroneal nerve conduction velocity and denervation of the right tibialis anterior muscle and extensor hallucis longus muscle. No sensory nerve abnormality was noted. No paraspinal denervation was noted. Due to the possibility of an L5 radiculopathy, a lumbar MRI was performed and multilevel degenerative disc and joint changes were noted that per orthopedic note was most pronounced at L5-S1 causing mild bilateral foraminal narrowing at this level. She was evaluated by an orthopedic surgeon. She had a right L5-S1 transforaminal epidural steroid injection in September 2021 however this did not produce any change in her symptoms. She is involved in horseback riding and at one point was riding daily though in the summertime of 2020 she reduced her riding time to about 3 times per week and since her last visit in October 2021 she has not ridden a horse. As part of her riding gear, she had worn a half chap which she stated produces pressure in the posterior fibular head region. A repeat right lower extremity EMG/nerve conduction study performed earlier in 2021 revealed revealed findings suggestive of a chronic denervation in the right L5 distribution. Absence of sensory responses and borderline reduced right peroneal motor amplitude may suggest an early polyneuropathy. No electrodiagnostic evidence was noted for lumbosacral radiculopathy. Since she was having gait difficulty, a head MRI was performed in August 2021 that revealed scattered patchy areas of increased T2 and FLAIR signal present in the supraventricular white matter which is a nonspecific finding but likely represents mild chronic microvascular ischemia. No significant volume loss for age. No evidence of diffuse axonal injury or acute infarct. No acute abnormality involving the cerebellum or midbrain. Images of her head MRI and lumbar MRI are presently not available. Since her last visit in October 2021 she has developed other symptoms. She has had a tremor affecting the upper extremities and lower extremities. She has noticed a feeling of stiffness in her arms and legs. She has had slowing and shuffling of her gait. She has developed some hypophonia. She has noticed having micrographia. She has experienced some postural instability. She has not been treated with neuroleptics or metoclopramide. She had reported that her sister may have Parkinson's disease. Physical Exam: Neuro: The patient is awake and alert and responds appropriately; speech is fluent and does not appear hypophonic presently; she exhibits a masklike face; a parkinsonian right hand tremor is noted; and intermittent bilateral lower extremity tremor is noted; marginal right wrist rigidity is noted with distraction; no left wrist rigidity is noted; she exhibits decreased arm swing when she ambulates; her postural is marginally stooped; she exhibits marginal slowing of her gait; motor strength is 5/5 in the right quadriceps and right foot dorsiflexors Supplemental Info MRI right ankle (07/07/2021): Low-grade peroneus longus tendinosis, without tear. EMG/nerve conduction study of right lower extremity (07/14/2021): Findings: The right lower extremity superficial peroneal and sural nerve action potentials are normal. The right peroneal motor amplitude is decreased. The right peroneal motor conduction velocity is normal. Monopolar needle examination reveals neuropathic changes in the extensor houses longus and tibialis anterior muscles. More proximal muscles including lumbar paraspinal muscles tested normally. Impression: Although a partial peroneal mononeuropathy cannot be entirely ruled out this study is most consistent with right L5 radicular changes. This is based upon normal-appearing perineal sensory responses associated with the neuropathic changes in the perineal/L5 myotome. Lumbar MRI (08/21/2021): Radiologist report: Scoliosis and multilevel spondylosis as detailed greater in the lower spine, without significant spinal canal stenosis. L1-2: Moderate facet arthropathy. Moderate bilateral foraminal narrowing no spinal canal stenosis. L2-3 moderate facet arthropathy. No significant spinal canal stenosis. Mild lateral recess narrowing. No foraminal narrowing. L3-4 circumferential bulge eccentric to the right with moderate facet arthropathy and ligamentum flavum hypertrophy. Mild spinal canal stenosis. No foraminal narrowing. L4-5 circumferential bulge with superimposed central inferiorly migrated extrusion, facet arthropathy and ligamentum flavum hypertrophy. No significant spinal canal stenosis. No right foraminal narrowing. Mild left foraminal narrowing. L5-S1: Small articular bone protrusion and/or endplate osteophyte facet arthropathy. No spinal canal stenosis. Mild bilateral foraminal narrowing. Sacrum and iliac wings: Degenerative changes of SI joints. Orthopedic surgeon report from office note: At L5-S1 there is moderate loss of disc height and signal. Mild broad posterior disc bulge. No central canal stenosis. Mild facet arthropathy. Mild to moderate right subarticular stenosis. Minimal right foraminal stenosis. No left subarticular or foraminal stenosis. At L4-5 there is moderate loss of disc height and signal. Mild posterior disc bulge. No central canal stenosis. Mild facet arthrosis. No subarticular or foraminal stenosis. At L3-4 there is mild loss of disc height and signal. Minimal posterior disc bulge. No central canal stenosis. Mild to moderate facet arthrosis. No subarticular or foraminal stenosis. At L2-3, L1-2 there is minimal loss of disc height and signal. Minimal posterior disc bulge. No central canal stenosis. Mild facet arthrosis. No subarticular or foraminal stenosis. Head MRI (08/21/2021): Findings: No acute intracranial hemorrhage. No evidence of diffuse axonal injury or acute infarct. No acute abnormality involving the cerebellum or midbrain. No evidence of prior parenchymal hemorrhage, intracranial mass or extra-axial fluid collection. Scattered patchy areas of increased T2 and FLAIR signal are present in the supratentorial white matter which is a nonspecific finding but likely represents mild chronic microvascular ischemia. No significant volume loss for age. Normal caliber and morphology of ventricles. Small left-sided choroid plexus xanthogranuloma is noted. Major intracranial arterial structures and dural venous sinuses show typical flow-void suggesting patency. Impression: No MRI evidence of an acute intracranial process. EMG/nerve conduction studies of the right lower extremity (01/06/22): Electrodiagnostic findings: Right peroneal motor nerve demonstrates normal distal latency with borderline reduced amplitude and normal conduction velocity. Normal right tibial motor response. Normal tibial and peroneal F-wave. H reflex normal bilaterally. Absent right sural and medial plantar responses. Normal right superficial peroneal latency. Needle EMG, 1+ polyphasic motor unit action potentials are noted in the right anterior tibialis and right peroneus longus. Electrodiagnostic impression: This is an abnormal study. 1. Electrodiagnostic findings are suggestive of chronic denervation in the right L5 distribution. 2. Absence of sensory responses and borderline reduced right peroneal motor amplitude may be suggestive of early polyneuropathy. Would consider testing of the alternate limb and potentially one upper limb for more definitive diagnosis. 3. No electrodiagnostic evidence is noted for lumbosacral radiculopathy. 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 (2) Polyneuropathy: Status: Acute Orders: Orders: Vitamin B12 Today Comprehensive Metabolic Profil Today Folates, (Folic Acid) Today Thyroid Stim Hormone (TSH) Today CBC-Complete Blood Cnt No Diff Today Erythrocyte Sed Rate Today Pablo Pena Lambda Light Chains Today Vitamin B1, Thiamine Today (3) Parkinson's disease: Status: Acute Plan Details Other Medications: New: ropinirole 1 tab PO daily for one week then 1 tab BID for one week then 1 tab TID thereafter 90 tabs 4RF Additional Comments: The patient initially presented with distal right lower extremity weakness that was severe and right foot eversion and mild in the right extensor houses longus. Right lower extremity EMG/nerve conduction study identified a partial peroneal motor mononeuropathy versus a right L5 radiculopathy. Her lumbar MRI reveals mild bilateral L5-S1 foraminal stenosis due to degenerative joint and disc disease. She was evaluated by an orthopedic surgeon and had a right L5- S1 epidural steroid injection; this did not produce any change in her symptoms. Her initial EMG/nerve conduction studies did not reveal any lower extremity sensory nerve involvement, conduction velocity slowing or lumbar paraspinal muscle denervation. A subsequent EMG/nerve conduction study performed in December 2021 revealed chronic denervation in the right L5 distribution and absent right sural and medial plantar sensory responses and borderline reduced right peroneal motor amplitude that may be suggestive of an early polyneuropathy. Clinically, my suspicion is that she has a partial right peroneal motor mononeuropathy (affecting the deep peroneal nerve) rather than L5 radiculopathy and although no conduction velocity abnormalities were noted, a possible etiologic consideration was her frequent wearing of a half chap as part of her gear worn during horseback riding and this piece of gear places pressure on the right fibular head region. She has stopped the riding of horses since her last visit in October 2021 and reports improvement of her right lower extremity weakness. She has performed exercises at home. - A B12, folate, thiamine, TSH, ESR, CBC, CMP and serum free light chains will be checked. She now presents with symptoms suggestive of early and mild Parkinson's disease that began earlier in 2021. She has had slowing and shuffling of her gait, a tremor affecting all extremities, hypophonia and has noted micrographia. She also describes having vague postural instability. - I will have her begin ropinirole 0.5 mg 1 tablet daily for 1 week then 1 tablet twice daily for 1 week then 1 tablet 3 times daily thereafter I will have her return for reassessment in 6 weeks (and to accommodate scheduling issues a 4- month follow-up will also be scheduled at this time). 01/21/222043 <Electronically signed by Jac Truong MD> Date Jac Truong MD Cosigner Signature: Date (if applicable) CC: Dr. Eleanor Armstrong, DO Eleanor Armstrong DO Work Phone: Start: 01-06-2022 End: 01-06-2022 NCS and/or EMG Patient Comments: See Note; NOTES: [facility] [address] [place] [address] MR#: [id number] Acct: [id number] Name: ANTHONY CHAUDHARY Rep #: [id number] : 1955 66 From: Eloy Montgomery MD Referring Dr: Status: REG CLI Location: PSN Date: 01/06/22 Sex: F C NCS and/or EMG Patient Report Ordering Doctor: Jac Truong DATE OF SERVICE: 01/06/22 Anthony presents for electrodiagnostic testing of the right lower limb. She reports weakness in the right leg for the past year. Electrodiagnostic findings: Right peroneal motor nerve demonstrates normal distal latency with borderline reduced amplitude and normal conduction velocity. Normal right tibial motor response. Normal tibial and peroneal F-wave. H reflex normal bilaterally. Absent right sural and medial plantar responses. Normal right superficial peroneal latency. Needle EMG, 1+ polyphasic motor unit action potentials are noted in the right anterior tibialis and right peroneus longus. Electrodiagnostic impression: This is an abnormal study. 1. Electrodiagnostic findings are suggestive of chronic denervation in the right L5 distribution. 2. Absence of sensory responses and borderline reduced right peroneal motor amplitude may be suggestive of early polyneuropathy. Would consider testing of the alternate limb and potentially one upper limb for more definitive diagnosis. 3. No electrodiagnostic evidence is noted for lumbosacral radiculopathy. 01/06/22 1311 <Electronically signed by Eloy Montgomery MD> Date Eloy Montgomery MD CC: Dr. Eloy Montgomery MD; Dr. Eleanor Armstrong DO; Dr. Jac Truong MD Date Dictated: 01/06/221307 Date Transcribed: 01/06/221307 Fire Operations Forester: AA Signed Eleanor Armstrong DO Work Phone: Start: 10-27-2021 End: 10-27-2021 Neurology Visit Report Comments: See Note; NOTES: [facility] [address] [place] [address] OFFICE VISIT Date of Service: 10/27/21 MR#: [id number] Acct: [id number] Name: ANTHONY CHAUDHARY Rep #: [id number] : 1955 Provider: Dr. Jac jaime MD Age/Sex: 66/F Location: [facility]. Status: Signed Intake Vital Signs 10/27/21 10:06 BP 148/96 H Blood Pressure Location Lt brachial Position Sitting Pulse 83 Pulse Source Monitor Pulse Oximetry (%) 98 Oxygen Delivery Method room air Intake Visit Reasons: ABNORMAL GAIT Postal Service Mail Processor Required: No Accompanied by: Self Is patient in pain?: No Allergies No Known Allergies Allergy (Verified 10/27/21 10:04) Medications Ageless Brain 1 tab PO DAILY 10/27/21 [History] Bio C 2 cap PO DAILY 10/27/21 [History] Bio M for Women - MultiMineral 1 cap PO DAILY 10/27/21 [History] Bio V Multivitamin 1 tab PO DAILY 10/27/21 [History] Neutraview 1 cap PO DAILY 10/27/21 [History] Queretin 2 cap PO DAILY 10/27/21 [History] Stress Adapt Day 2 cap PO DAILY 10/27/21 [History] magnesium 200 mg tablet 200 mg PO DAILY 10/27/21 [History Confirmed 10/27/21] omega-3 fatty acids 1,000 mg capsule 1,000 mg PO DAILY 10/27/21 [History Confirmed 10/27/21] potassium chloride 10 mEq capsule,extended release 10 meq PO DAILY 10/27/21 [History Confirmed 10/27/21] turmeric 400 mg capsule 400 mg PO DAILY cap 10/27/21 [History Confirmed 10/27/21] vitamin D3 250 mcg (10,000 unit)-vitamin K2 45 mcg capsule 1 cap PO DAILY 10/27/21 [History Confirmed 10/27/21] PFSH Medical History Neck pain Shoulder pain Surgical History dislocation surgery Family History (Updated 10/27/21 @ 10:45 by Fani Das) Mother Non-Hodgkin lymphoma Father Alzheimer disease Sister Bone cancer CVA (cerebral vascular accident) Grandfather Myocardial infarction Grandfather Myocardial infarction Social History (Updated 10/27/21 @ 10:45 by Fani Das) Smoking Status: Never smoker alcohol intake: current details: socially substance use type: does not use HPI HPI Details: History: The patient is a 66-year-old right-handed woman with a past medical history of hypertension who presents for evaluation of right lower extremity weakness. She states that while horseback riding in January 2021 she noticed having difficulty everting the right foot and this has persisted since that time. Earlier in January 2021 she had developed some right calf region cramping for which she was treated with a methylprednisolone taper and cyclobenzaprine and this apparently resolved. She otherwise has not been experiencing any right lower extremity pain. She is not experiencing radicular pain in the right lower extremity. She has had mild occasional low back pain. She denies having numbness, weakness or pain in the arms or left lower extremity. She denies having any numbness in the right leg. Due to her lower extremity weakness she has had some gait imbalance and has a tendency to twist her right ankle. A right ankle MRI revealed low-grade peroneus longus tendinosis, without tear. An EMG/nerve conduction study revealed findings suggestive of a partial peroneal neuropathy versus L5 radiculopathy with decreased right amplitude of the peroneal motor nerve, normal peroneal nerve conduction velocity and denervation of the right tibialis anterior muscle and extensor hallucis longus muscle. No sensory nerve abnormality was noted. No paraspinal denervation was noted. Due to the possibility of an L5 radiculopathy, a lumbar MRI was performed and multilevel degenerative disc and joint changes were noted that per orthopedic note was most pronounced at L5-S1 causing mild bilateral foraminal narrowing at this level. She was evaluated by an orthopedic surgeon. She had a right L5-S1 transforaminal epidural steroid injection in September 2021 however this did not produce any change in her symptoms. She is involved in horseback riding and at one point was riding daily though in the summertime she reduced her riding time to about 3 times per week. As part of her riding gear, she wears a half chap which she states produces compression in the posterior fibular head region. Since she was having gait difficulty, a head MRI was performed in August 2021 that was reported to be normal. Official full report of her head MRI is not available presently (a portion of the report available states that scattered patchy areas of increased T2 and FLAIR signal are present in the supraventricular white matter which is a nonspecific finding but likely represents mild chronic microvascular ischemia. No significant volume loss for age. No evidence of diffuse axonal injury or acute infarct. No acute abnormality involving the cerebellum or midbrain.) Images of her head MRI and lumbar MRI are presently not avai lable. She reports slight improvement of her motor strength over recent months. Past Medical History: There is no history of diabetes mellitus, heart disease, lung disease, symptomatic stroke, seizure, thyroid disease, cancer or renal disease. Social History: She does not smoke tobacco. She she may have up to 1 drink of alcohol per day but does not consume alcohol daily. Family History: The patient's sister had a stroke. The patient's sister may possibly have Parkinson's disease. There is no family history of neuropathy, seizure or cerebral aneurysm. Review of Systems: As above. The patient has not had any recent fever, rash, weight change, chest pain, shortness of breath or gastrointestinal problems. She has urinary frequency. She has some anxiety. She denies having depression. Physical Exam: General: Well-developed, well-nourished female in no acute distress. Neuro: The patient is awake and alert and responds appropriately; speech is fluent; language function is within normal limits Cranial nerves: PERRL, 3mm bilaterally; EOMI; visual nathan are full; visual acuity is 20/40 bilaterally; face is symmetrical; tongue is midline; there are no deficits to pinprick Cerebellar system: No nystagmus or dysmetria Deep tendon reflexes: +2 at the knees, left triceps and right brachioradialis, absent at the left brachioradialis, biceps, right triceps, left ankle and trace at the right ankle;plantar responses are downward bilaterally Motor: Strength 5/5 in the biceps bilaterally, abductor pollicis brevis muscles bilaterally, first dorsal interosseous muscles bilaterally, iliopsoas bilaterally quadriceps bilaterally and foot dorsiflexors bilaterally, hamstrings bilaterally and 1/5 in right foot eversion and 4+/5 in the right extensor hallucis longus; no drift Sensory: Decreased vibration is noted in the right foot medially and laterally; there are no deficits to soft touch in the feet or right leg below the knee; there are no deficits to pinprick Gait: Mildly slow; HEENT: Normocephalic; atraumatic Neck: No bruits Heart: Regular rate and rhythm Extremities: No cyanosis or edema; straight leg raise is negative bilaterally; dorsalis pedis pulses are +2 bilaterally; atrophy is noted in the right calf (right calf circumference 32 cm; left calf circumference 34 cm) Supplemental Info MRI right ankle (07/07/2021): Low-grade peroneus longus tendinosis, without tear. EMG/nerve conduction study of right lower extremity (07/14/2021): Findings: The right lower extremity superficial peroneal and sural nerve action potentials are normal. The right peroneal motor amplitude is decreased. The right peroneal motor conduction velocity is normal. Monopolar needle examination reveals neuropathic changes in the extensor houses longus and tibialis anterior muscles. More proximal muscles including lumbar paraspinal muscles tested normally. Impression: Although a partial peroneal mononeuropathy cannot be entirely ruled out this study is most consistent with right L5 radicular changes. This is based upon normal-appearing perineal sensory responses associated with the neuropathic changes in the perineal/L5 myotome. Lumbar MRI (08/21/2021): Radiologist report: Scoliosis and multilevel spondylosis as detailed greater in the lower spine, without significant spinal canal stenosis. L1-2: Moderate facet arthropathy. Moderate bilateral foraminal narrowing no spinal canal stenosis. L2-3 moderate facet arthropathy. No significant spinal canal stenosis. Mild lateral recess narrowing. No foraminal narrowing. L3-4 circumferential bulge eccentric to the right with moderate facet arthropathy and ligamentum flavum hypertrophy. Mild spinal canal stenosis. No foraminal narrowing. L4-5 circumferential bulge with superimposed central inferiorly migrated extrusion, facet arthropathy and ligamentum flavum hypertrophy. No significant spinal canal stenosis. No right foraminal narrowing. Mild left foraminal narrowing. L5-S1: Small articular bone protrusion and/or endplate osteophyte facet arthropathy. No spinal canal stenosis. Mild bilateral foraminal narrowing. Sacrum and iliac wings: Degenerative changes of SI joints. Orthopedic surgeon report from office note: At L5-S1 there is moderate loss of disc height and signal. Mild broad posterior disc bulge. No central canal stenosis. Mild facet arthropathy. Mild to moderate right subarticular stenosis. Minimal right foraminal stenosis. No left subarticular or foraminal stenosis. At L4-5 there is moderate loss of disc height and signal. Mild posterior disc bulge. No central canal stenosis. Mild facet arthrosis. No subarticular or foraminal stenosis. At L3-4 there is mild loss of disc height and signal. Minimal posterior disc bulge. No central canal stenosis. Mild to moderate facet arthrosis. No subarticular or foraminal stenosis. At L2-3, L1-2 there is minimal loss of disc height and signal. Minimal posterior disc bulge. No central canal stenosis. Mild facet arthrosis. No subarticular or foraminal stenosis. 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 On testing with right lower extremity EMG/nerve conduction study she was found to have evidence of a partial peroneal motor mononeuropathy versus a right L5 radiculopathy. Her lumbar MRI reveals mild bilateral L5-S1 foraminal stenosis due to degenerative joint and disc disease. She was evaluated by an orthopedic surgeon and had a right L5-S1 epidural steroid injection; this did not produce any change in her symptoms. Her EMG/nerve conduction studies did not reveal any lower extremity sensory nerve involvement, conduction velocity slowing or lumbar paraspinal muscle denervation. My suspicion is that she has a partial right peroneal motor mononeuropathy (affecting the deep peroneal nerve) rather than L5 radiculopathy and although no conduction velocity abnormalities were noted, a possible etiologic consideration is her frequent wearing of a half chap as part of her gear worn during horseback riding and this piece of gear does place pressure on the right fibular head region. She has reduce the time that she rides horses and she was advised for the short-term not use the half chip gear when riding and to avoid placing pressure in the right popliteal fossa region in general. A repeat EMG/nerve conduction study will be ordered. She reports having recent laboratory studies and these will be obtained for review and further laboratory evaluation may be pursued after review of the studies (B12, folate, thiamine, TSH, ESR, TREVA, CBC and CMP will be ordered if these have not been performed recently). She is performing exercises at home and she was advised to continue with this. She has a right ankle brace which she wears however if she continues to have issues with twisting of her right ankle when walking on uneven surfaces, she may consider getting a custom fitted firmer ankle orthosis. She states that she will follow up with her church musician regarding this. She reports slight improvement of her motor strength over recent months. I am hopeful that she may have some recovery of her peroneal motor function over time. Her lumbar MRI images will be obtained for review. A full report of her head MRI will be obtained. I will have her return for reassessment in 3 months. Thank you for this consultation. 10/27/21 9577 <Electronically signed by Jac Truong MD> Date Jac Truong MD Cosigner Signature: Date (if applicable) CC: DO Eleanor Milian DO Work Phone: Start: 12-28-2019 End: 12-28-2019 Emergency Department Summary Comments: See Note; NOTES: [facility] Medical Records Department [address] [place] [address] Emergency Department Summary 12/28/19 MR#: [id number] Acct: [id number] Name: ANTHONY CHAUDHARY Rep #: [id number] : 1955 64 From: Piter Faulkner MD PCP: Eleanor Armstrong DO Status: REG ER History of Present Illness Chief Complaint: Dizziness Detail of Chief Complaint: fall Occurred: Days - 2 d ago Mechanism/Context: - - bucked off of a horse Location: left side -- shoulder, ribcage, hip Quality of Pain: Aching Current Severity: Moderate Maximum Severity: Moderate Worsened by: walking, deep inspiration, movement Relieved by: remaining still. no pain in hip w/ standing/WBing Associated Symptoms: - - lightheaded w/ standing. no vertiginous sx. no headache, nausea. vomited some water once yesterday.. Negative for: Parasthesias, Weakness, Loss of function, Inability to ambulate, Loss of consciousness, Amnesia Narrative: Patient fell off of a horse 2 days ago. She had no loss of consciousness. She landed on her left side, she sustained an abrasion to her forehead but the head was not the sole area that she landed. She is having pain in her left clavicle, left posterior rib cage, in her lateral and anterior left hip. She can bear weight without any difficulty, when she forward flexes at the hip while walking it hurts. Denies any abdominal pain. She has urinated without hematuria. No headaches or vision changes or neurologic symptoms. She is healthy and takes no medications daily including antiplatelet or anticoagulant medicines. Past Medical History - Allergies and Home Meds Allergies/Adverse Reactions: Allergies No Known Allergies Allergy (Unverified 12/28/19 11:03) Primary Care Physician: Eleanor Armstrong DO [Primary Care Provider] - Past Medical History: None Smoking Status: Never smoker Drugs: None Review of Systems General: Denies: Chills, Fever, Sweats Eyes: Denies: Visual changes - bilaterally, Diplopia ENT: Denies: Rhinorrhea, Sore throat Cardiovascular: Reports: Chest pain. Denies: Palpitations Respiratory: Denies: Dyspnea, Cough, Dyspnea on exertion Gastrointestinal: Denies: Abdominal pain, Nausea, Vomiting, Diarrhea, Melena, Hematochezia Genitourinary: Denies: Dysuria, Hematuria, Frequency Musculoskeletal: Reports: Back pain - Left lateral/low ribs, Extremity Pain. Denies: Neck pain Skin: Reports: Abrasions. Denies: Rash Neurological: Denies: Headache, Weakness, Numbness Physical Exam Vital Signs/Narrative: Vital Signs 12/28/19 11:03 98.8 F 101 H 17 113/70 04/10/20 11:02 85 24 H 99 Inital Vital Signs reviewed: Yes General: Well nourished, Well developed, - - Well-appearing no distress. Head: Normocephalic, Atraumatic Eyes: Perrl, EOMI ENT: TM's clear, No hemotympanum or drainage, No trauma - Except for minor nontender abrasion, healing, left forehead. No crepitance or depression. Neck: Nontender, Full ROM. Negative for: Spinal Tenderness Cardiovascular: Regular rate, Regular rhythm, No murmurs Respiratory: No distress, CTA bilaterally, Chest tenderness - Left mid-lateral clavicle. No deformity. No step-off palpable. No tenderness at the acromioclavicular joint or the sternum/sternoclavicular joints. Abdomen: Soft, Nontender, Nondistended, Normal bowel sounds Back: - - Mild tenderness left paraspinal pelvic brim. No crepitance or step-off or signs of obvious trauma.. Negative for: Spinal Tenderness Extremeties: Tender at the left ASIS. Mildly tender at the greater trochanter. Painless internal and external rotation. Full range of motion of all joints of all 4 extremities. Skin: Normal color, No rash, Trauma - Minor abrasion forehead. Bruising with intact skin left lateral hip, diffuse. Neurological: Alert, Oriented x3, Cranial nerves II-XII grossly intact, Normal Strength, Normal Sensation, - - GCS 15 Psychological: Normal affect, Normal Mood Diagnostic/Tx/Re-eval Clinical Impression(s) from Imaging Studies Hip/Pelvis X-Ray 12/28/19 11:25 IMPRESSION: No acute fracture or dislocation of the pelvis and left hip. Electronically Signed: Philip Rojas MD at 12:12 EDT , Service support , Ribs w/Chest X-Ray 12/28/19 11:25 IMPRESSION: RIBS: Acute fractures of the left sixth, seventh, eighth and ninth ribs. CHEST: Acute fracture of the left mid clavicle with apical angulation deformity of the fracture fragments. 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 Electronically Signed: Philip Rojas MD at 12:17 EDT , Service support , - Medical Decision Making Patient given ibuprofen at her request. X-rays show angulated but nondisplaced fracture of the left clavicle in the middle of it, as well as multiple rib fractures on the left side. I think all of these are uncomplicated. Her pelvis/hip is okay on x-ray. She was reassured, given appropriate discharge instructions, a sling for her left upper extremity, prescription for Ultram, and advised to follow-up with orthopedics for reevaluation to ensure fracture healing goes appropriately. We discussed her dizziness/lightheadedness when she stands up. I do not think this is a symptom of concussion, and since she has had really no other symptoms of concussion, I do not think she needs a head scan to see if she has any type of significant traumatic brain injury, which I do not think she has. ED Disposition - Plan for ED Patient: Disposition: Home or Assisted Living Diagnosis: Closed left clavicular fracture, Left rib fracture Instructions: ED Rib Fx, ED Clavicle Fracture Prescriptions: traMADol [Ultram (G)] 50 mg PO Q4H PRN PRN #20 tab PRN Reason: pain Transmission Status: Sent to [facility]30 Referrals: Eleanor Armstrong DO [Primary Care Provider] - Arash Cheung MD [STAFF PHYSICIAN] - 1-2 Weeks What to do if you have Problems For any increased pain, shortness of breath, bleeding, nausea or vomiting, chest pain, or any unexpected problems, contact your Primary Care Provider. Call [facility] ([phone]) or report to the closest Emergency Room. Call 911 if necessary. 12/28/19 1239 <Electronically signed by Piter Faulkner MD> Date Piter Faulkner MD Cosigner Signature (If Indicated): Date CC: Eleanor Armstrong DO ADDENDUM by PITER FAULKNER MD on 12/28/19 at 1413 Clinical Impression(s) from Imaging Studies Brain CT 12/28/19 12:45 IMPRESSION: Normal unenhanced CT scan of the brain. Electronically Signed: Philip Rojas MD at 13:58 EDT , Service support , Cousin called me to discuss, who is a nurse. She wants the patient to have a CT of her head. She states she slammed her head into the ground. The patient denies this, she has a little abrasion on her forehead and she has not had a headache since the accident 2 days ago, clearly the major forces involved appear to have been distributed between her ribcage, left shoulder, left hip. The cousin states that right afterwards she was not able to see color. She has had lightheadedness with standing which is new since the fall. I indicated that I did not think any of this indicated a traumatic cerebral hemorrhage. The head CT was obtained in order to reassure everyone, it was negative and the patient was discharged in stable condition, she was very pleasant and doing well at discharge. 12/28/19 1413 Date Piter Faulkner MD cc: Eleanor Armstrong DO * Signed Eleanor Armstrong Start: 12-28-2019 End: 12-28-2019 Brain/Head without Contrast Comments: See Note; NOTES: [facility] Imaging Services [address] [place] [address] Brain/Head without Contrast MR#: [id number] Acct: [id number] Name: ANTHONY CHAUDHARY Rep #: [id number] : 1955 F 64 From: Philip Rojas MD PCP: Eleanor Armstrong DO Status: [facility] Study: Brain/Head without Contrast Date of Exam: 12/28/19 Exam# [id number] Ordering Dr: Piter Faulkner MD STUDY: CT BRAIN WITHOUT CONTRAST REASON FOR EXAM: Female, 64 years old. Dizziness and lightheaded after fall. Left clavicle fracture. RADIATION DOSAGE (If Supplied By Facility): CTDIvol = ( 44.99 ) mGy, DLP = ( 745.49 ) mGycm TECHNIQUE: Transaxial CT imaging of the brain was performed without administration of intravenous contrast material. Coronal and sagittal reconstructions were performed. Individualized dose optimization techniques were used for this CT. COMPARISON: None. FINDINGS: Normal soft tissue structures. Normal calvarium. Normal size ventricles and extra-axial spaces for the patient''s age. Normal white matter tracts of the cerebral hemispheres. Normal basal ganglia and thalami. Normal brainstem. Normal cerebellum. There is no intracranial hemorrhage. There are no findings of an acute ischemic infarction. Normal visualized paranasal sinuses. CT/Brain/Head without Contrast IMPRESSION: Normal unenhanced CT scan of the brain. Electronically Signed: Philip Rojas MD at 13:58 EDT , Service support , CC: PITER FAULKNER MD; Eleanor Armstrong DO Fire Operations Forester: Signed Eleanor Armstrong Start: 12-28-2019 End: 12-28-2019 Emergency Department Summary Comments: See Note; NOTES: [facility] Medical Records Department [address] [place] [id number] Emergency Department Summary 12/28/19 MR#: [id number] Acct: [id number] Name: ANTHONY CHAUDHARY Rep #: [id number] : 1955 64 From: Piter Faulkner MD PCP: Eleanor Armstrong DO Status: REG ER History of Present Illness Chief Complaint: Dizziness Detail of Chief Complaint: fall Occurred: Days - 2 d ago Mechanism/Context: - - bucked off of a horse Location: left side -- shoulder, ribcage, hip Quality of Pain: Aching Current Severity: Moderate Maximum Severity: Moderate Worsened by: walking, deep inspiration, movement Relieved by: remaining still. no pain in hip w/ standing/WBing Associated Symptoms: - - lightheaded w/ standing. no vertiginous sx. no headache, nausea. vomited some water once yesterday.. Negative for: Parasthesias, Weakness, Loss of function, Inability to ambulate, Loss of consciousness, Amnesia Narrative: Patient fell off of a horse 2 days ago. She had no loss of consciousness. She landed on her left side, she sustained an abrasion to her forehead but the head was not the sole area that she landed. She is having pain in her left clavicle, left posterior rib cage, in her lateral and anterior left hip. She can bear weight without any difficulty, when she forward flexes at the hip while walking it hurts. Denies any abdominal pain. She has urinated without hematuria. No headaches or vision changes or neurologic symptoms. She is healthy and takes no medications daily including antiplatelet or anticoagulant medicines. Past Medical History - Allergies and Home Meds Allergies/Adverse Reactions: Allergies No Known Allergies Allergy (Unverified 12/28/19 11:03) Primary Care Physician: Eleanor Armstrong DO [Primary Care Provider] - Past Medical History: None Smoking Status: Never smoker Drugs: None Review of Systems General: Denies: Chills, Fever, Sweats Eyes: Denies: Visual changes - bilaterally, Diplopia ENT: Denies: Rhinorrhea, Sore throat Cardiovascular: Reports: Chest pain. Denies: Palpitations Respiratory: Denies: Dyspnea, Cough, Dyspnea on exertion Gastrointestinal: Denies: Abdominal pain, Nausea, Vomiting, Diarrhea, Melena, Hematochezia Genitourinary: Denies: Dysuria, Hematuria, Frequency Musculoskeletal: Reports: Back pain - Left lateral/low ribs, Extremity Pain. Denies: Neck pain Skin: Reports: Abrasions. Denies: Rash Neurological: Denies: Headache, Weakness, Numbness Physical Exam Vital Signs/Narrative: Vital Signs 12/28/19 11:03 98.8 F 101 H 17 113/70 12/28/19 11:02 85 24 H 99 Inital Vital Signs reviewed: Yes General: Well nourished, Well developed, - - Well-appearing no distress. Head: Normocephalic, Atraumatic Eyes: Perrl, EOMI ENT: TM's clear, No hemotympanum or drainage, No trauma - Except for minor nontender abrasion, healing, left forehead. No crepitance or depression. Neck: Nontender, Full ROM. Negative for: Spinal Tenderness Cardiovascular: Regular rate, Regular rhythm, No murmurs Respiratory: No distress, CTA bilaterally, Chest tenderness - Left mid-lateral clavicle. No deformity. No step-off palpable. No tenderness at the acromioclavicular joint or the sternum/sternoclavicular joints. Abdomen: Soft, Nontender, Nondistended, Normal bowel sounds Back: - - Mild tenderness left paraspinal pelvic brim. No crepitance or step-off or signs of obvious trauma.. Negative for: Spinal Tenderness Extremeties: Tender at the left ASIS. Mildly tender at the greater trochanter. Painless internal and external rotation. Full range of motion of all joints of all 4 extremities. Skin: Normal color, No rash, Trauma - Minor abrasion forehead. Bruising with intact skin left lateral hip, diffuse. Neurological: Alert, Oriented x3, Cranial nerves II-XII grossly intact, Normal Strength, Normal Sensation, - - GCS 15 Psychological: Normal affect, Normal Mood Diagnostic/Tx/Re-eval Clinical Impression(s) from Imaging Studies Hip/Pelvis X-Ray 12/28/19 11:25 IMPRESSION: No acute fracture or dislocation of the pelvis and left hip. Electronically Signed: Philip Rojas MD at 12:12 EDT , Service support , Ribs w/Chest X-Ray 12/28/19 11:25 IMPRESSION: RIBS: Acute fractures of the left sixth, seventh, eighth and ninth ribs. CHEST: Acute fracture of the left mid clavicle with apical angulation deformity of the fracture fragments. 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 Electronically Signed: Philip Rojas MD at 12:17 EDT , Service support , - Medical Decision Making Patient given ibuprofen at her request. X-rays show angulated but nondisplaced fracture of the left clavicle in the middle of it, as well as multiple rib fractures on the left side. I think all of these are uncomplicated. Her pelvis/hip is okay on x-ray. She was reassured, given appropriate discharge instructions, a sling for her left upper extremity, prescription for Ultram, and advised to follow-up with orthopedics for reevaluation to ensure fracture healing goes appropriately. We discussed her dizziness/lightheadedness when she stands up. I do not think this is a symptom of concussion, and since she has had really no other symptoms of concussion, I do not think she needs a head scan to see if she has any type of significant traumatic brain injury, which I do not think she has. ED Disposition - Plan for ED Patient: Disposition: Home or Assisted Living Diagnosis: Closed left clavicular fracture, Left rib fracture Instructions: ED Rib Fx, ED Clavicle Fracture Prescriptions: traMADol [Ultram (G)] 50 mg PO Q4H PRN PRN #20 tab PRN Reason: pain Transmission Status: Sent to [facility] #30 Referrals: Eleanor Armstrong DO [Primary Care Provider] - Arash Cheung MD [STAFF PHYSICIAN] - 1-2 Weeks What to do if you have Problems For any increased pain, shortness of breath, bleeding, nausea or vomiting, chest pain, or any unexpected problems, contact your Primary Care Provider. Call [facility] ([phone]) or report to the closest Emergency Room. Call 911 if necessary. 12/28/19 1239 <Electronically signed by Piter Faulkner MD> Date Piter Faulkner MD Cosigner Signature (If Indicated): Date CC: Eleanor Dubose Start: 12-28-2019 End: 12-28-2019 HIP, UNI W/ Pelvis 2-3 Views Comments: See Note; NOTES: [facility] Imaging Services [address] [place] [address] HIP, UNI W/ Pelvis 2-3 Views MR#: [id number] Acct: [id number] Name: ANTHONY CHAUDHARY Rep #: [id number] : 1955 F 64 From: Philip Rojas MD PCP: Eleanor Armstrong DO Status: REG ER Study: HIP, UNI W/ Pelvis 2-3 Views Date of Exam: 12/28/19 Exam# [id number] Ordering Dr: Piter Faulkner MD STUDY: X-RAY - PELVIS AND LEFT HIP REASON FOR EXAM: Female, 64 years old. FALL FROM HORSE TWO DAYS AGO, DIZZINESS, L SIDE PAIN, DECREASED O2 TECHNIQUE: 3 views of the pelvis and hip. COMPARISON: None. FINDINGS: There is a non-specific bowel gas pattern. Normal visualized soft tissue structures. Normal bilateral iliac wings, sacroiliac joints and visualized sacrum. Normal bilateral superior and inferior pubic rami. Normal pubic symphysis. Normal bilateral ischial tuberosities. Normal visualized femoral head. Normal acetabulum. Normal hip joint. RAD/HIP, UNI W/ Pelvis 2-3 Views IMPRESSION: No acute fracture or dislocation of the pelvis and left hip. Electronically Signed: Philip Rojas MD at 12:12 EDT , Service support , CC: PITER FAULKNER MD; Eleanor Armstrong DO Fire Operations Forester: Signed Eleanor Armstrong Start: 12-28-2019 End: 12-28-2019 Ribs Uni Min 3V w/PA Chest Comments: See Note; NOTES: [facility] Imaging Services [address] [place] [address] Ribs Uni Min 3V w/PA Chest MR#: [id number] Acct: [id number] Name: ANTHONY CHAUDHARY Rep #: [id number] : 1955 F 64 From: Philip Rojas MD PCP: Eleanor Armstrong DO Status: REG ER Study: Ribs Uni Min 3V w/PA Chest Date of Exam: 12/28/19 Exam# [id number] Ordering Dr: Piter Faulkner MD STUDY: X-RAY - UNILATERAL RIBS ( LEFT ) WITH CHEST REASON FOR EXAM: Female, 64 years old. FALL FROM HORSE TWO DAYS AGO, DIZZINESS, L SIDE PAIN, DECREASED O2 TECHNIQUE - RIBS: 4 view(s) of the ribs. TECHNIQUE - CHEST: Single PA view. COMPARISON: None. FINDINGS - RIBS: Acute fractures of the left sixth, seventh, eighth and ninth ribs. FINDINGS - CHEST: Pulmonary hyperinflation with flattening of the hemidiaphragms. Mild emphysema of the upper lobes, right side more than left. No suspicious infiltrates. Bilaterally prominent nipple shadows. There is no demonstrated pleural abnormality. Microcardia. Normal mediastinum and marialuisa. Normal visualized pulmonary arteries. Normal visualized aortic arch and descending thoracic aorta. Normal visualized thoracic spine. Acute fracture of the left mid clavicle with apical angulation deformity of the fracture fragments. Normal right clavicle and shoulders. Normal right rib cage. There is no demonstrated abnormality of the visualized soft tissue structures of the upper abdomen. RAD/Ribs Uni Min 3V w/PA Chest IMPRESSION: RIBS: Acute fractures of the left sixth, seventh, eighth and ninth ribs. CHEST: Acute fracture of the left mid clavicle with apical angulation deformity of the fracture fragments. 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 Electronically Signed: Philip Rojas MD at 12:17 EDT , Service support , CC: PITER FAULKNER MD; Eleanor Armstrong DO Fire Operations Forester: Signed Eleanor Armstrong Start: 12-28-2019 End: 12-28-2019 Urgent Care Visit Report Comments: See Note; NOTES: [facility] [address] [place] [address] [address] [place] [id number] OFFICE VISIT Date of Service: 12/28/19 MR#: [id number] Acct: [id number] Name: ANTHONY CHAUDHARY Rep #: [id number] : 1955 Provider: Nishant EDDY Age/Sex: 64/F Location: [facility] Status: Signed Intake Vital Signs12/28/19 Height 5 ft 2 in 12/28/19 Weight: 129 lb 12/28/19 BMI 23.6 12/28/19 BP 102/64 12/28/19 Blood Pressure Location Lt brachial 12/28/19 Position Sitting 12/28/19 Respiration 15 12/28/19 Pulse 81 12/28/19 Temp 97.6 F L 12/28/19 Temp Source Temporal 12/28/19 Pulse Oximetry (%) 98 12/28/19 Oxygen Delivery Method room air Intake Visit Reasons: FELL OFF HORSE Allergies No Known Allergies Allergy (Unverified 12/28/19 10:43) Medications vitamins PO 12/28/19 [History] PFSH Medical History (Updated 12/28/19 @ 10:55 by NUNU Davis) Neck pain (Acute) Shoulder pain (Acute) Surgical History (Updated 12/28/19 @ 10:45 by Pily Brock) dislocation surgery (Acute) Family History (Updated 12/28/19 @ 10:45 by Pily Brock) Mother Cancer Father Alzheimer disease Social History (Updated 12/28/19 @ 10:57 by NUNU Davis) Smoking Status: Never smoker alcohol intake: current details: socially HPI HPI Details: ANTHONY CHAUDHARY, is a 64 F who presents to the office today for complaint of falling off a horse 2 days ago. Patient states that she was bucked off of a horse and fell hitting her left side. She currently complains of left hip, shoulder and rib pain. She also states that she did hit her head and has a small abrasion above her left eye however denies any headache. She has however had one episode of vomiting and worsening dizziness. Patient states that her episode of emesis was just over 24 hours ago with no continued episodes and denies hematemesis. She states that her dizziness makes it difficult for her to walk and is worse with positional changes. No vision change or mental status change. She denies any loss of consciousness however is also unable to recall exactly what happened after being thrown from the horse. No other associated symptoms or alleviating/aggravating factors. ROS Const Constitutional: Positive for other (10 system ROS completed with pertinent findings in the HPI otherwise normal.) Exam Const General: cooperative, healthy appearing Resp Effort AND Inspection: normal respiratory effort Auscultation: Bilateral: Clear to Auscultation Cardio Palpation: normal PMI Rate: regular rate Rhythm: regular rhythm Skin Other: Abrasion just above and lateral to the left eye. Neuro General: alert, CN's II-XI intact bilaterally Psych Appearance: grossly normal Mental Status: mental status grossly normal Assessment AND Plan Problems 1. Animal-rider injured by fall from or being thrown from horse in noncollision accident, initial encounter V80.010A Status Acute Plan With worsening dizziness and emesis the patient has been advised to report to the ED for further evaluation and treatment for possible need of head CT. Patient being transported by the acquaintance that accompanied her to the appointment. Patient verbalized understanding and agreement with all the above. Coding Level of Care Code Off vis,new,level 3 Diagnoses Animal-rider injured by fall from or being thrown from horse in noncollision accident, initial encounter V80.010A 12/28/19 1057 <Electronically signed by Nishant EDDY> Date Nishant EDDY Cosigner Signature: Date (if applicable) CC: Eleanor Armstrong section Malgorzata Grav ius Comment on above: 1984 section Daryl cummings LPN Comment on above: 1984 section Daryl Kwan s DAIRY TESTER Comment on above: 1984 section Mara Parker an DAIRY TESTER Comment on above: 1984 section Marairma Carrenom an DAIRY TESTER Comment on above: 1984 section Malgorzata Grav ius DORMITORY COUNSELOR Comment on above: 1984 section Malgorzata Grav ius DORMITORY COUNSELOR Comment on above: 1984 section Malgorzata Grav ius DORMITORY COUNSELOR Comment on above: 1984 section Kayela Radf ord DORMITORY COUNSELOR Comment on above: 1984 section Kayela Radf ord DORMITORY COUNSELOR Comment on above: 1984 section Kayela Radf ord DORMITORY COUNSELOR Comment on above: 1984 section Charlee tapia MA Comment on above: 1984 section Sarkis Pryo r DAIRY TESTER Comment on above: 1984 section Grinnell Pryo r DAIRY TESTER Comment on above: 1984 Plan of Treatment Date Care Activity Detail Author Start: 02-16-2025 Patient discharge [facility] Start: 02-15-2025 Application of intermittent pneumatic compression device [facility] Start: 02-15-2025 Following clinical pathway protocol [facility] Start: 02-15-2025 Ambulation without limitation [facility] Start: 02-15-2025 Aspiration precautions [facility] Start: 02-15-2025 Assessment of risk of venous thromboembolism [facility] Start: 02-15-2025 Cardiac monitoring [facility] Start: 02-15-2025 Catheterization of vein [facility] Start: 02-15-2025 Consultation [facility] Start: 02-15-2025 Elevation of head of bed [facility] Start: 02-15-2025 Exercises [facility] Start: 02-15-2025 Insertion of catheter into peripheral vein [facility] Start: 02-15-2025 Measuring intake and output [facility] Start: 02-15-2025 Notification of physician [facility] Start: 02-15-2025 Patient referral to dietitian [facility] Start: 02-15-2025 Providing care according to standard [facility] Start: 02-15-2025 Referral to occupational therapist [facility] Start: 02-15-2025 Referral to service [facility] Start: 02-15-2025 Speech therapy assessment [facility] Start: 02-15-2025 Telemedicine consultation with patient [facility] Start: 02-15-2025 Tobacco use cessation education [facility] Start: 02-15-2025 End: 02-15-2025 [facility] Start: 02-15-2025 Vital signs measurements [facility] Start: 02-15-2025 Verification routine [facility] Start: 02-15-2025 Admission procedure [facility] Start: 02-15-2025 Hospital admission, emergency, from emergency room, medical nature [facility] Start: 02-15-2025 [facility] Start: 02-15-2025 Oxygen therapy [facility] Start: 02-15-2025 [facility] Start: 12-18-2024 Folic acid measurement, RBC [facility] Start: 12-18-2024 Thiamine measurement [facility] Start: 12-18-2024 Vitamin D, 1,25-dihydroxy measurement [facility] Start: 12-18-2024 [facility] Start: 03-18-2023 Procedure Education Eprescribed prescriptions (G8553) [facility] Work Phone: Start: 03-18-2023 Provider Instructions for Treatment [facility] Work Phone: Start: 03-18-2023 Hepatitis c antibody HEPATITIS C ANTIBODY (08682) [facility]; [facility] Work Phone: Start: 02-21-2023 Procedure Education Eprescribed prescriptions (G8553) [facility]; [facility] Work Phone: Start: 02-21-2023 Provider Instructions for Treatment Continue Current Prescription(s) [facility] Work Phone: Start: 02-21-2023 25 hydroxy includes fractions if performed CALCIFIDIOL (02875) VIT D 25 [facility]; [facility] Work Phone: Start: 02-21-2023 Assay of thyroid stimulating hormone tsh TSH (73821) [facility]; [facility] Work Phone: Start: 02-21-2023 Cyanocobalamin vitamin b-12 VITAMIN B-12 (CYANOCOBALAMIN) (17264) [facility]; [facility] Work Phone: Start: 02-21-2023 Sedimentation rate rbc non-automated SED RATE ERYTHROCYTE (04798) [facility]; [facility] Work Phone: Start: 02-21-2023 Comprehensive metabolic panel METABOLIC PANEL, COMPREHENSIVE (76766) [facility]; [facility] Work Phone: Start: 02-21-2023 C-reactive protein C-REACTIVE PROTEIN (96971) [facility]; [facility] Work Phone: Start: 02-21-2023 Blood count complete automated CBC (AUTO) (82517) [facility]; [facility] Work Phone: Start: 01-20-2023 Procedure Education Eprescribed prescriptions (G8553) [facility]; [facility] Work Phone: Start: 01-20-2023 Provider Instructions for Treatment [facility]; [facility] Work Phone: Start: 11-18-2022 Procedure Education Eprescribed prescriptions (G8553) [facility]; [facility] Work Phone: Start: 11-18-2022 Provider Instructions for Treatment Follow up in 2 months fu med possible wean [facility]; [facility] Work Phone: Start: 10-21-2022 Procedure Education Eprescribed prescriptions (G8553) [facility]; [facility] Work Phone: Start: 10-21-2022 Provider Instructions for Treatment Follow up in 4 weeks [facility]; [facility] Work Phone: Start: 10-21-2022 End: 10-21-2022 Behav assmt w/score & docd/stand instrument SCREENING FOR DEPRESSION USING PATIENT HEALTH QUESTIONNAIRE (PHQ) (49833) [facility]; [facility] Work Phone: Start: 03-24-2022 Procedure Education Eprescribed prescriptions (G8553) [facility]; [facility] Work Phone: Start: 03-24-2022 Provider Instructions for Treatment [facility] Work Phone: Start: 03-04-2022 Urine immunofixation [facility] Work Phone: Start: 03-01-2022 Procedure Education Eprescribed prescriptions (G8553) [facility]; [facility] Work Phone: Start: 03-01-2022 Provider Instructions for Treatment [facility]; [facility] Work Phone: Start: 11-20-2021 Procedure Education Eprescribed prescriptions (G8553) [facility]; [facility] Work Phone: Start: 11-20-2021 Provider Instructions for Treatment [facility]; [facility] Work Phone: Start: 10-28-2021 Procedure Education Eprescribed prescriptions (G8553) [facility]; [facility] Work Phone: Start: 10-28-2021 Provider Instructions for Treatment [facility]; [facility] Work Phone: Start: 10-28-2021 Assay of magnesium MAGNESIUM (71464) [facility] Work Phone: Start: 10-28-2021 Basic metabolic panel calcium total METABOLIC PANEL, BASIC (94354) [facility]; [facility] Work Phone: Start: 09-24-2021 Procedure Education Eprescribed prescriptions (G8553) [facility]; [facility] Work Phone: Start: 09-24-2021 Provider Instructions for Treatment Reviewed Diagnostic Tests [facility]; [facility] Work Phone: Start: 09-24-2021 Lipid panel LIPID PANEL (43904) [facility]; [facility] Work Phone: Start: 09-24-2021 Blood count complete auto&auto difrntl wbc CBC W/AUTO DIFF WBC (25341) [facility]; [facility] Work Phone: Start: 09-24-2021 Comprehensive metabolic panel METABOLIC PANEL, COMPREHENSIVE (19967) [facility]; [facility] Work Phone: Start: 09-02-2021 Provider Instructions for Treatment [facility]; [facility] Work Phone: Start: 07-16-2021 Procedure Education Eprescribed prescriptions (G8553) [facility]; [facility] Work Phone: Start: 06-19-2021 Procedure Education Eprescribed prescriptions (G8553) [facility]; [facility] Work Phone: Start: 06-19-2021 Provider Instructions for Treatment Follow up in 1 week [facility]; [facility] Work Phone: Start: 02-25-2021 Procedure Education Eprescribed prescriptions (G8553) [facility]; [facility] Work Phone: Start: 02-25-2021 Provider Instructions for Treatment Follow up if no improvement or if symptoms worsen [facility]; [facility] Work Phone: Start: 02-18-2021 Procedure Education Eprescribed prescriptions (G8553) [facility]; [facility] Work Phone: Start: 02-18-2021 Provider Instructions for Treatment [facility]; [facility] Work Phone: Start: 08-13-2020 Procedure Education Eprescribed prescriptions (G8553) [facility] Work Phone: Start: 09-29-2016 Patient Education Instructions for the Patient Before and After Surgery *: instructions [facility] Work Phone: Start: 07-30-2014 Provider Instructions for Treatment [facility] Work Phone: Start: 06-28-2014 Procedure Education Eprescribed prescriptions (G8553) [facility] Work Phone: Start: 06-28-2014 Provider Instructions for Treatment Follow up - Make appt after diagnostic tests [facility] Work Phone: Hematocrit [Volume Fraction] of Blood [facility] Pablo Pena/lambda light c igor ratio [facility] Lambda light chains. free [Mass/volume] in Serum or Plasma [facility] MR Lumbar spine [facility] Patient referral [facility] Work Phone: Troponin T.cardiac [Mass/volume] in Serum or Plasma by High sensitivity method [facility] Urine immunofixation [facility] Work Phone: Urine kappa light ch ain measurement [facility] US.doppler Lower extremity vein [facility] Work [facility]: [facility] Work Phone: [facility] Work Phone: [facility] Work Phone: [facility] Work Phone: [facility] Work Phone: [facility] Work Phone: [facility] Work Phone: [facility] Work Phone: [facility] Payers Date Payer Category Payer Self-pay 2023 Unknown [id number] 2022 Medicare [id number] 2014 Unknown [id number] 1955 Unknown [id number] 2.16.84 [id number] Self-pay SELF PAY INSURANCE [id number] Unknown Unknown [id number] Unknown [id number] Unknown [id number] 2.16.8 [id number] Unknown [id number] 2.16.8 40.1.426468.3.579.2.462 Unknown [id number] 2.16.8 40.1.362021.3.579.2.462 Unknown [id number] 2.16.8 40.1.161252.3.579.2.462 Unknown [id number] 2.16.8 40.1.110020.3.579.2.462 Unknown [id number] 2.16.8 40.1.128784.3.579.2.462 Unknown [id number] 2.16.8 40.1.501369.3.579.2.462 Unknown [id number] 2.16.8 40.1.693182.3.579.2.462 Unknown [id number] 2.16.8 40.1.750475.3.579.2.462 Unknown [id number] 2.16.8 40.1.081088.3.579.2.462 Unknown [id number] 2.16.8 40.1.780889.3.579.2.462 Unknown [id number] 2.16.8 40.1.459162.3.579.2.462 Unknown [id number] 2.16.8 40.1.990306.3.579.2.462 Unknown [id number] 2.16.8 40.1.719221.3.579.2.462 Unknown [id number] 2.16.8 40.1.647952.3.579.2.462 Unknown [id number] 2.16.8 40.1.144093.3.579.2.462 Unknown [id number] 2.16.8 40.1.589640.3.579.2.462 Unknown [id number] 2.16.8 40.1.550309.3.579.2.462 Unknown [id number] 2.16.8 40.1.240897.3.579.2.462 Unknown [id number] 2.16.8 40.1.345937.3.579.2.462 Unknown [id number] 2.16.8 40.1.124747.3.579.2.462 Social History Date Type Detail Facility Caffeine Use Caffeine Use [facility] Work Phone: Comment on above: qd Start: 10-27-2021 End: 03-04-2022 Tobacco smoking status NHIS Tobacco smoking consumption unknown [facility] Start: 1955 Sex Assigned At Not on file [facility] Start: 12-28-2019 None [facility] Start: 1955 Sex Assigned At Female [facility] Start: 11-15-2023 End: 05-04-2025 Tobacco smoking status NHIS Never smoked tobacco (finding) [facility] Start: 12-20-2024 Sex Female (finding) [facility] Start: 02-16-2025 Tobacco Use Tobacco Use [facility] Functional Status Date Assessment Result Facility 02-16-2025 Functional status Ambulates [facility] Work Phone: Mental Status Date Assessment Result Facility 02-16-2025 Cognitive function Voice/Name [facility] Work Phone: 02-15-2025 Cognitive function Voice/Name [facility] Work Phone: Clinical Notes 03-01-2022 to 02-16-2025 Note Date & Type Note Facility 02-16-2025 Discharge summary Note Date/Time February 16, 2025 11:05 am [facility] Department [address] [place] [address] Instructions for Home/Discharge Instructions 02/16/25 1100 MR#: [id number] Acct: [id number] Name: ANTHONY CHAUDHARY Rep #:[id number] : 1955 69 From: Eliel Vines PCP: Dr. Eleanor Armstrong, DO Status:AD M [facility] Discharge Instructions Diet Discharge Diet: No restrictions DC O2, CPAP, BIPAP needs Home O2 Discharge instructions: No Dressing / Incision Discharge Activity: Return to Normal Activity Weight Bearing Status: Weight bearing as tolerated Dressing / Incision Call your doctor if you observe: Fever of 101 or Higher, Coldness, Increased Pain, Numbness or Tingling, Change in Color, Inability to urinate, Inability to have a bowel movement, Shortness of breath, Dizziness, Fainting spells, Swellingin the ankles, Chest pain, Prolonged hiccupping, Increased palpitations (irregular heartbeat) and Calf discomfort Follow Up Care When: IN 2 WEEKS Test Results: Test results from this visit will be discussed in further detail at your follow-up appointment, if applicable. Discharge Plan Admission Admit Date/Time: 02/15/25 04:28 Attending Provider: Eliel Reeves Primary Care Provider: Eleanor Armstrong Consulting Providers: Sheng Galvin; Hansa Pepper; Karen Perkins; Mirna Lria; Joselyn De Guzman; Deo Duran; Danyell Mg; Zaki Costa; Jim Kingsley; Esteban Jernigan; Leilani Zapata; Coleman Lakhani; Tisha Novoa; Rob Nguyen; Kathe Weathers; Joe Block; Chrissie Egan; Bjorn Lockhart; Trinh Viveros; Echo Castro;Marvin Becerril; Jes Ortiz Discharge Orders/Prescriptions Prescriptions: New carbidopa-levodopa 50-200 mg Tablet Extended Release 1 tab PO 5X/DAY 30 Days Qty: 150 0RF atorvastatin [Lipitor] 40 mg tablet 40 mg PO QHS 30 Days Qty: 30 2RF Continued magnesium 200 mg tablet 200 mg PO DAILY omega-3 fatty acids 1,000 mg capsule 1,000 mg PO DAILY coenzyme Q10 30 mg capsule 30 mg PO DAILY citalopram [Celexa] 10 mg tablet 10 mg PO DAILY naproxen 500 mg tablet 500 mg PO BID PRN (Reason: pain) Qty: 60 3RF ropinirole 3 mg tablet 3 mg PO BID Qty: 60 6RF baclofen 10 mg tablet See Rx Instructions .ROUTE .COMPLEX Qty: 180 4RF Rx Instructions: Take 1 tablet orally 3 times daily and 3 tablets nightly multivitamin [Daily Multi-Vitamin] Tablet 1 tab PO DAILY Discontinued carbidopa-levodopa 25-100 mg tablet extended release 2 tab PO .QID Qty: 240 3RF Referrals / Follow Up: Eleanor Armstrong DO [Primary Care Provider] - Disposition Disposition (needs filled in before D/C Order can be placed): Home, Self Care 02/16/25 1105<Electronically signed by Eliel Reeves MD>Eliel Reeves MD CC: Mirna Lira; Tisha Novoa; Joe Block; Joselyn De Guzman MD; Karen Perkins MD; Sheng Galvin MD; Dr. Hansa Pepper MD; Dr. Deo Duran MD; Dr. Carmen MD; Dr. Jim Kingsely MD; Dr. Zaki Costa MD; Dr. Esteban Jernigan MD; Dr. Eleanor Armstrong DO; Dr. Coleman Lakhani DO; Dr. Kathe Weathers MD; Dr. Rob Nguyen MD; Dr. Jes Ortiz MD; Dr. Marvin Becerril MD; Dr. Cristofer MD; Dr. Bjorn Lockhart MD; Dr. Trinh Viveros MD; Leilani Zapata DO; Echo Castro MD ~ Signed [facility] Work Phone: 1(800) 855-997505-31-2025 Discharge summary [facility] Department [address] [place] [address] Instructions for Home/Discharge Instructions 02/16/25 1100 MR#: [id number] Acct: [id number] Name: ANTHONY CHAUDHARY Rep #:[id number] : 1955 69 From: Eliel Vines PCP: Dr. Eleanor Armstrong DO Status:AD M [place] Discharge Instructions Diet Discharge Diet: No restrictions DC O2, CPAP, BIPAP needs Home O2 Discharge instructions: No Dressing / Incision Discharge Activity: Return to Normal Activity Weight Bearing Status: Weight bearing as tolerated Dressing / Incision Call your doctor if you observe: Fever of 101 or Higher, Coldness, Increased Pain, Numbness or Tingling, Change in Color, Inability to urinate, Inability to have a bowel movement, Shortness of breath, Dizziness, Fainting spells, Swellingin the ankles, Chest pain, Prolonged hiccupping, Increased palpitations (irregular heartbeat) and Calf discomfort Follow Up Care When: IN 2 WEEKS Test Results: Test results from this visit will be discussed in further detail at your follow- up appointment, if applicable. Discharge Plan Admission Admit Date/Time: 02/15/25 04:28 Attending Provider: Eliel Reeves Primary Care Provider: Eleanor Armstrong Consulting Providers: Sheng Galvin; Hansa Pepper; Karen Perkins; Mirna Lira; Joselyn De Guzman; Deo Duran; Danyell Mg; Zaki Costa; Jim Kingsley; Esteban Jernigan; Leilani Zapata; Coleman Lakhani; Tisha Novoa; Rob Nguyen; Kathe Weathers; Joe Block; Chrissie Egan; Bjorn Lockhart; Trinh Viveros; Echo Castro;Marvin Becerril; Jes Ortiz Discharge Orders/Prescriptions Prescriptions: New carbidopa-levodopa 50-200 mg Tablet Extended Release 1 tab PO 5X/DAY 30 Days Qty: 150 0RF atorvastatin [Lipitor] 40 mg tablet 40 mg PO QHS 30 Days Qty: 30 2RF Continued magnesium 200 mg tablet 200 mg PO DAILY omega-3 fatty acids 1,000 mg capsule 1,000 mg PO DAILY coenzyme Q10 30 mg capsule 30 mg PO DAILY citalopram [Celexa] 10 mg tablet 10 mg PO DAILY naproxen 500 mg tablet 500 mg PO BID PRN (Reason: pain) Qty: 60 3RF ropinirole 3 mg tablet 3 mg PO BID Qty: 60 6RF baclofen 10 mg tablet See Rx Instructions .ROUTE .COMPLEX Qty: 180 4RF Rx Instructions: Take 1 tablet orally 3 times daily and 3 tablets nightly multivitamin [Daily Multi-Vitamin] Tablet 1 tab PO DAILY Discontinued carbidopa-levodopa 25-100 mg tablet extended release 2 tab PO .QID Qty: 240 3RF Referrals / Follow Up: Eleanor Armstrong DO [Primary Care Provider] - Disposition Disposition (needs filled in before D/C Order can be placed): Home, Self Care 02/16/25 1105Eliel Reeves MD CC: Mirna Lira; Tisha Novoa; Joe Block; Joselyn De Guzman MD; Karen Perkins MD; Sheng Galvin MD; Dr. Hansa Pepper MD; Dr. Deo Duran MD; Dr. Carmen MD; Dr. Jim Kingsley MD; Dr. Zaki Costa MD; Dr. Esteban Jernigan MD; Dr. Eleanor Armstrong DO; Dr. Coleman Lakhani DO; Dr. Kathe Weathers MD; Dr. Rob Nguyen MD; Dr. Jes Ortiz MD; Dr. Marvin Becerril MD; Dr. Cristofer MD; Dr. Bjorn Lockhart MD; Dr. Trinh Viveros MD; Leilani Zapata DO; Echo Castro MD [facility]05-31-2025 [facility] Medical Records Department [address] [place] [address] Discharge Summary 02/16/25 1105 MR#: [id number] Acct: [id number] Name: ANTHONY CHAUDHARY Rep #: [id number] : 1955 69 From: Eliel Reeves MD PCP: Dr. Eleanor Armstrong DO Status:DIS MONICA Location: [place] [address] Providers Date of Admission: 02/15/25 Date of Discharge: 02/16/25 Primary Care Physician: Dr. Eleanor Armstrong DO Consultations 02/15/25 05:35 Consult: Tele-Neurology Routine Consulting Provider: [facility] Reason for Consult: Acute Ischemic Stroke/TIA EMERGENT Consult: No Notified: Yes Date Notified: 02/15/25 Time Notified: 06:00 Method of Notification: Answering Service Method of Consult:: Telemedicine Comments:: worsening gait from parkinsons Nursing Unit Staff Notify [facility] of Tele-Neurology Consult: Yes Reason For Visit: TIA Diagnosis Discharge Diagnosis (1) Gait instability: Status: Acute Code(s): R26.81 - Unsteadiness on feet (2) Parkinson's disease: Status: Chronic Code(s): G20 - Parkinson's disease Qualifiers: Dyskinesia presence: without dyskinesia Fluctuating manifestations: with fluctuating manifestations Qualified Code(s): G20.A2 - Parkinson's disease without dyskinesia, with fluctuations Plan The patient was admitted for right upper extremity weakness, generalized weakness and gait instability, waxing and waning type. Stroke ruled out #RUE weakness and generaliwed weakness and instability * [place] to be due to Parkinson's disease. CT of the brain showed no acute intracranial pathology. MRI of the brain done also showed no evidence of a stroke. * Neurology was consulted and did not think MRI of the brain was needed. On Sinemet qid. Neurology recommended that Sinemet be switched to 5 times daily. * To follow-up with her neurologist on outpatient basis. Already on aspirin and Lipitor * also on baclofen. 02/16: New prescription for Sinemet 5 times daily was given * #Anxiety and depression: on escitalopram DVT prophylaxis: SCDs Family did not want to go to SNF. Discharge to home. Home physical therapy prescription signed. Discharge medication reconciliation done. Discharge follow-up instructions completed. Discharge process discussed with the patient and all questions were answered to patient's satisfaction. Follow with PCP in 1 to 2 weeks Total time spent, exact 35 minutes on discharge meds reconciliation, examination, coordination of care with nurses and ancillary staff, review of imaging and blood test and discussion with the patient on follow-up instructions. Medications at Discharge Home Medications magnesium 200 mg tablet 200 mg PO DAILY 10/27/21 citalopram 10 mg tablet (Celexa) 10 mg PO DAILY 11/08/22 coenzyme Q10 30 mg capsule 30 mg PO DAILY 11/08/22 omega-3 fatty acids 1,000 mg capsule 1,000 mg PO DAILY 11/08/22 ropinirole 3 mg tablet 3 mg PO BID #60 tabs 11/26/24 naproxen 500 mg tablet 500 mg PO BID PRN pain #60 tabs 01/28/25 baclofen 10 mg tablet See Rx Instructions .Route .COMPLEX muscle pain/muscle spasm #180 tabs 02/14/25 multivitamin (Daily Multi-Vitamin tablet) 1 tab PO DAILY 02/15/25 atorvastatin 40 mg tablet (Lipitor) 40 mg PO QHS 30 days #30 tabs 02/16/25 carbidopa ER 50 mg-levodopa 200 mg tablet,extended release 1 tab PO 5X/DAY 30 days #150 tabs 02/16/25 Physical Exam Narrative Seen and examined. Patient's present near the bedside. Patient denies BM for 2 days. Last BM 02/14. Physical exam General: Alert, Oriented x3, Cooperative HEENT: Atraumatic, PERRLA, EOMI, Normocephalic. Oral: No Gingival or Mucosal Lesions/ Ulcerations Neck: Supple, No JVD, Negative Carotid Bruits Chest wall/Lungs: Air entry diminished in bilateral lung bases. No crepitation/rhonchi Cardiovascular: Regular rate and rhythm, Normal S1,S2, No M/G/R Abdomen: Bowel Sounds Present, Soft, Non Tender, Non-Distended : No dysuria. No renal angle tenderness. No suprapubic tenderness. Extremities: No edema, Capillary Refill Less than 3 Seconds Skin: No rashes, No breakdown Musculoskeletal: Increase the stiffness of her knee and thigh muscles/Cogwheel rigidity. No Tenderness to Palpation of Joints or Extremities Neurological: Cranial nerves II-XII grossly intact, masked facies. Psych/Mental Status: Flat affect Weight / BMI Weight Weight: 120 lb 2.431 oz Body Mass Index (BMI) 20.0 ABG / Lab / Microbiology Data 02/16/25 04:42 02/16/25 04:42 Laboratory: Laboratory Results - last 24 hr 02/16/25 04:42: WBC 4.5, RBC 3.74 L, Hgb 12.2, Hct 36.3 L, MCV 97.1, MCH 32.6 H, MCHC 33.6, RDW Std Deviation 46.5 H, RDW Coeff of Milly 12.9, Plt Count 199, MPV 10.2, Immature Gran % (Auto) 0.000, Neut % (Auto) 53.8, Lymph % (Auto) 28.8, Mclean % (Auto) 11.9 H, Eos % (Auto) 4.6, Baso % (Auto) 0.9, Absolute Neuts (auto) 2.4, Absolute (more content not included)...[facility]05-30-2025 Progress note Author Jes Ortiz [facility] Note Date/Time February 15, 2025 4:15p m [facility] Medical Records Department [address] [address] Progress Note 02/15/25 1537 MR#: [id number] Acct: [id number] Name: ANTHONY CHAUDHARY Rep #:[id number] : 1955 69 From: Jes Ortiz MD PCP: Dr. Eleanor Armstrong, DO Status:AD M MONICA Location: [place] [address] Subjective Subjective Patient seen and examined. She had no active complaints. She was admitted with acomplaint of waxing and waning weakness and concerns for stroke. She still complains of the weakness today though she says it has improve today. Review of systems is otherwise negative. MRI of the brain done was negative for any evidence of a stroke. SHe has remained hemodynamically stable. Objective Data Objective Data Vital Signs: Vital Signs Temp Pulse Resp BP Pulse Ox O2 Del Method 98.5 F 66 16 168/91 H 99 Room Air 02/15/25 15:35 02/15/25 15:35 02/15/25 15:35 02/15/25 15:35 02/15/25 15:35 02/15/25 15:35 Oxygen Delivery Method Room Air Weight: 120 lb 2.431 oz Body Mass Index (BMI) 20.0 Intake & Output: Intake and Output for Last 24 Hours 02/13/25 02/14/25 02/15/25 23:59 23:59 23:59 Intake Total 120 / 120 Output Total 250 / 250 Balance -130 / -130 Lab / Micro Data 02/15/25 01:43 02/15/25 01:43 Labs: Laboratory Results - last 24 hr 02/15/25 01:43: WBC 3.8 L, RBC 3.80 L, Hgb 12.4, Hct 36.9 L, MCV 97.1, MCH 32.6 H, MCHC 33.6, RDW Std Deviation 47.3 H, RDW Coeff of Milly 13.2, Plt Count 204, MPV 10.3, Immature Gran % (Auto) 0.300, Neut % (Auto) 51.6, Lymph % (Auto) 21.8,Mclean % (Auto) 18.9 H, Eos % (Auto) 5.8 H, Baso % (Auto) 1.6 H, Absolute Neuts (auto) 2.0, Absolute Lymphs (auto) 0.83, Nucleated RBC % 0, PT 13.6, INR 1.0, APTT 31.9, Sodium 140, Potassium 3.6, Chloride 105, Carbon Dioxide 24.4, Anion Gap 10, BUN 26 H, Creatinine 0.68 L, Estim Creat Clear Calc 57.94, Est GFR (MDRD) Non-Af 93, BUN/Creatinine Ratio 38.2 H, Glucose 103 H, Calcium 9.2, Troponin T High Sens 19 H 02/15/25 01:49: POC Glucose 92 02/15/25 01:59: POC Glucose 84 02/15/25 03:12: Urine Color Yellow, Urine Clarity Clear, Urine pH 7.0, Ur Specific [place] 1.010, Urine Protein 15 H, Urine Glucose (UA) Normal, Urine Ketones Negative, Urine Occult Blood 25 H, Urine Nitrite Negative, Urine Bilirubin Negative, Urine Urobilinogen Normal, Ur Leukocyte Esterase Negative, Urine RBC 0 SEEN, Urine WBC 0 SEEN, Ur Squamous Epith Cells 0 SEEN, Urine Bacteria RARE, Urine Mucus 0 SEEN 02/15/25 03:45: Troponin T Hi Sens 2 Hr 20 H 02/15/25 06:40: Troponin T Hi Sens 4Hr 19 H, Triglycerides 40, Cholesterol 273 H, LDL Cholesterol, Calc 160, VLDL Cholesterol 8, HDL Cholesterol 105, Cholesterol/HDL Ratio 2.60 Radiography Diagnostic Testing: Radiology Impression Brain CT 02/15/25 01:56 IMPRESSION: No intracranial hemorrhage, mass effect or CT evidence of large vascular territory acute infarct. Age commensurate chronic and involutional changes. Findings verbally reported by myself to Dr. Dejesus at 2:35 a.m. 02/15/2025 Reading Location: [facility] Head/Neck CTA 02/15/25 01:56 IMPRESSION: Undulating vessels. No CTA head or neck flow significant stenosis, dissection, vessel cut off or aneurysm as above. Reading Location: [facility] Brain MRI 02/15/25 05:35 IMPRESSION: No acute intracranial process. Mild chronic microvascular ischemic changes. Reading Location: [facility] Physical Exam Const alert, oriented x3 and no apparent distress Constitutional Narrative: flat affect General Appearance: cooperative HEENT normocephalic, moist oral mucous membranes and oropharynx normal Eyes EOMs intact bilaterally Neck supple and no JVD Lymph Lymphatic: no lymphedema noted Resp normal respiratory effort, normal air movement and clear to auscultation bilaterally Cardio regular rate, regular rhythm, S1 normal heart sound, S2 normal heart sound and no murmurs GI normal to inspection, nondistended, normoactive bowel sounds, soft to palpation,non-tender and non-distended Extremity normal capillary refill, no clubbing, cyanosis or edema and no calf tenderness General Extremity: no tenderness to palpation of joints or extremities Skin General Skin Exam: no breakdown Neuro no focal motor deficits Neuro Narrative: flat, masked like facies. Motor Exam: general weakness Psych cooperative Mood & Affect: flat affect Assessment & Plan Assessment/Plan (1) Gait instability: (2) Parkinson's disease: QUALIFIERS: Dyskinesia presence: without dyskinesia Fluctuating manifestations: with fluctuating manifestations Qualified Code(s): G20.A2 - Parkinson's disease without dyskinesia, with fluctuations PLAN: Plan #RUE weakness and generaliwed weakness and instability * [place] to be due to Parkinson's disease. CT of the brain showed no acute intracranial pathology. MRI of the brain done also showed no evidence of a stroke. * Neurology was consulted and did not think MRI of the brain was needed. On Sinemet qid. Neurology recommended that Sinemet be switched to 5 times daily. * To follow-up with her neurologist on outpatient basis. Already on aspirin and Lipitor * also on baclofen. * #Anxiety and depression: on escitalopram DVT prophylaxis: SCDs Disposition: evaluated by PT.OT and deemed as needing placement. Case managementon board to help with placement. Charges/Coding Visit Charges Inpatient E&M: 77893 Subs Hosp L2 02/15/25 1615 <Electronically signed by Jes Ortiz MD> Jes Ortiz MD Cosigner Signature (if applicable): CC: ~ Signed [facility] Work Phone: [phone]) 932-271805-30-2025 Progress note [facility] Medical Records Department [address] [place] [address] Progress Note 02/15/25 1537 MR#: [id number] Acct: [id number] Name: ANTHONY CHAUDHARY Rep #:[id number] : 1955 69 From: Jes Ortiz MD PCP: Dr. Eleanor Armstrong, DO Status:AD M MONICA Location: [place] [address] Subjective Subjective Patient seen and examined. She had no active complaints. She was admitted with acomplaint of waxingand waning weakness and concerns for stroke. She still complains of the weakness today though she says it has improve today. Review of systems is otherwise negative. MRI of the brain done was negative for any evidence of a stroke. SHe has remained hemodynamically stable. Objective Data Objective Data Vital Signs: Vital Signs Temp Pulse Resp BP Pulse Ox O2 Del Method 98.5 F 66 16 168/91 H 99 Room Air 02/15/25 15:35 02/15/25 15:35 02/15/25 15:35 02/15/25 15:35 02/15/25 15:35 02/15/25 15:35 Oxygen Delivery Method Room Air Weight: 120 lb 2.431 oz Body Mass Index (BMI) 20.0 Intake & Output: Intake and Output for Last 24 Hours 02/13/25 02/14/25 02/15/25 23:59 23:59 23:59 Intake Total 120 / 120 Output Total 250 / 250 Balance -130 / -130 Lab / Micro Data 02/15/25 01:43 02/15/25 01:43 Labs: Laboratory Results - last 24 hr 02/15/25 01:43: WBC 3.8 L, RBC 3.80 L, Hgb 12.4, Hct 36.9 L, MCV 97.1, MCH 32.6 H, MCHC 33.6, RDW Std Deviation 47.3 H, RDW Coeff of Milly 13.2, Plt Count 204, MPV 10.3, Immature Gran % (Auto) 0.300, Neut % (Auto) 51.6, Lymph % (Auto) 21.8,Mclean % (Auto) 18.9 H, Eos % (Auto) 5.8 H, Baso % (Auto) 1.6 H, Absolute Neuts (auto) 2.0, Absolute Lymphs (auto) 0.83, Nucleated RBC % 0, PT 13.6, INR 1.0, APTT 31.9, Sodium 140, Potassium 3.6, Chloride 105, Carbon Dioxide 24.4, Anion Gap 10, BUN 26 H, Creatinine 0.68 L, Estim Creat Clear Calc 57.94, Est GFR (MDRD) Non-Af 93, BUN/Creatinine Ratio 38.2 H, Glucose 103 H, Calcium 9.2, Troponin T High Sens 19 H 02/15/25 01:49: POC Glucose 92 02/15/25 01:59: POC Glucose 84 02/15/25 03:12: Urine Color Yellow, Urine Clarity Clear, Urine pH 7.0, Ur Specific [place] 1.010, Urine Protein 15 H, Urine Glucose (UA) Normal, Urine Ketones Negative, Urine Occult Blood 25 H, UrineNitrite Negative, Urine Bilirubin Negative, Urine Urobilinogen Normal, Ur Leukocyte Esterase Negative, Urine RBC 0 SEEN, Urine WBC 0 SEEN, Ur Squamous Epith Cells 0 SEEN, Urine Bacteria RARE, Urine Mucus 0 SEEN 02/15/25 03:45: Troponin T Hi Sens 2 Hr 20 H 02/15/25 06:40: Troponin T Hi Sens 4Hr 19 H, Triglycerides 40, Cholesterol 273 H, LDL Cholesterol, Calc 160, VLDL Cholesterol 8, HDL Cholesterol 105, Cholesterol/HDL Ratio 2.60 Radiography Diagnostic Testing: Radiology Impression Brain CT 02/15/25 01:56 IMPRESSION: No intracranial hemorrhage, mass effect or CT evidence of large vascular territory acute infarct. Age commensurate chronic and involutional changes. Findings verbally reported by myself to Dr. Dejesus at 2:35 a.m. 02/15/2025 Reading Location: [facility] Head/Neck CTA 02/15/25 01:56 IMPRESSION: Undulating vessels. No CTA head or neck flow significant stenosis, dissection, vessel cut off or aneurysm as above. Reading Location: [facility] Brain MRI 02/15/25 05:35 IMPRESSION: No acute intracranial process. Mild chronic microvascular ischemic changes. Reading Location: [facility] Physical Exam Const alert, oriented x3 and no apparent distress Constitutional Narrative: flat affect General Appearance: cooperative HEENT normocephalic, moist oral mucous membranes and oropharynx normal Eyes EOMs intact bilaterally Neck supple and no JVD Lymph Lymphatic: no lymphedema noted Resp normal respiratory effort, normal air movement and clear to auscultation bilaterally Cardio regular rate, regular rhythm, S1 normal heart sound, S2 normal heart sound and no murmurs GI normal to inspection, nondistended, normoactive bowel sounds, soft to palpation,non-tender and non-distended Extremity normal capillary refill, no clubbing, cyanosis or edema and no calf tenderness General Extremity: no tenderness to palpation of joints or extremities Skin General Skin Exam: no breakdown Neuro no focal motor deficits Neuro Narrative: flat, masked like facies. Motor Exam: general weakness Psych cooperative Mood & Affect: flat affect Assessment & Plan Assessment/Plan (1) Gait instability: (2) Parkinson's disease: QUALIFIERS: Dyskinesia presence: without dyskinesia Fluctuating manifestations: with fluctuating manifestations Qualified Code(s): G20.A2 - Parkinson's disease without dyskinesia, with fluctuations PLAN: Plan #RUE weakness and generaliwed weakness and instability * [place] to be due to Parkinson's disease. CT of the brain showed no acute intracranial pathology. MRI of the brain done also showed no evidence of a stroke. * Neurology was consulted and did not think MRI of the brain was needed. On Sinemet qid. Neurology recommended that Sinemet be switched to 5 times daily. * To follow-up with her neurologist on outpatient basis. Already on aspirin and Lipitor * also on baclofen. * #Anxiety and depression: on escitalopram DVT prophylaxis: SCDs Disposition: evaluated by PT.OT and deemed as needing placement. Case managementon board to help with placement. Charges/Coding Visit Charges Inpatient E&M: 56604 Subs Hosp L2 02/15/25 1615 Jes Ortiz MD Cosigner Signature (if applicable): CC: ~ Signed [facility]05-30-2025 Consult note Author Leilani Zapata [facility] Note Date/Time February 15, 2025 10:03 am [facility] Medical Records Department [address] [address] Consultation - Neurology 02/15/25 0923 MR#: [id number] Acct: [id number] Name: ANTHONY CHAUDHARY Rep #:[id number] : 1955 69 From: Leilani Zapata MD PCP: Dr. Eleanor Armstrong, DO Status:AD M [place]ICA Location: [place] [address] Assessment and Plan: Neuro Assessment/Plan ANTHONY CHAUDHARY is a 69 F with a past medical history of parkinsons disease, being evaluated by Teleneurology for leg pains/stiffness and trouble walking. These are chronic issues, seem to worsen when her sinemet is wearing off. There was reports of right sided weakness but on my examination she has full strength throughout. Exam findings consistent with parkinsonism, symptoms predominantly rigidity today. No symptoms to suggest an underlying neuropathy/neuropathic painalthough small fiber neuropathy could be considered if she does develop neuropathic symptoms. Diagnosis: Parkinson's disease Plan: Increase Sinemet 2 tab to 5 times daily - 6a/9a/12/3p/6p No need for MRI from neurology standpoint Would consider referral to movement disorder specialist PT evaluation Neurology will sign off I personally attended this patient and spent a total time of 37 minutes evaluating this patient including clinical assessment, review of chart, medical history imaging, and determining appropriate treatment and workup. HPI Consult Data Date of Consult: 02/15/25 HPI Narrative HPI Narrative: ANTHONY CHAUDHARY, is a 69 F who presents with pain in her feet. Reported yesterday that she had new weakness in her right arm, but she denies this. Reports she hashad pain in her legs for some time but feels that is worse. She describes this as pressure feeling like her toes are very tight and painful. She does take baclofen as needed which may help. She has a history of PD and is on Sinemet - currently on 25/100 2 tabs QID. She has reports significant benefit from this, but it does wear off. When it wears off she gets more stiff and has worsening ofthe pain/cramping in her legs/feet. She denies burning, tingling and new weakness. [facility] Medical History Parkinson disease COVID-19 Acute bronchitis, unspecified Anemia Neck pain Shoulder pain Home Medications ?Medication ?Instructions ?Recorded ?Last Taken ?Type magnesium 200 mg tablet 200 mg PO DAILY 10/27/21 History citalopram 10 mg tablet (Celexa) 10 mg PO DAILY 02/13/25 History coenzyme Q10 30 mg capsule 30 mg PO DAILY 11/08/22 History omega-3 fatty acids 1,000 mg 1,000 mg PO DAILY 3 02/13/25 History capsule ropinirole 3 mg tablet 3 mg PO BID #60 tabs 5 02/14/25 Rx carbidopa ER 25 mg-levodopa 100 mg 2 tab PO .QID #240 tabs 01/28/25 02/15/25 Rx tablet,extended release naproxen 500 mg tablet 500 mg PO BID PRN pain #60 t abs 01/28/25 02/14/25 Rx baclofen 10 mg tablet See Rx Instructions .Route 0 02/14/25 02/14/25 Rx .COMPLEX muscle pain/muscle spasm #180 tabs multivitamin (Daily Multi-Vitamin 1 tab PO DAILY 02/1502/13/25 History tablet) Allergy/AdvReac Type Severity Reaction Status Date / Time No Known Allergies Allergy Verified 02/15/25 06:04 Family History Mother Non-Hodgkin lymphoma Father Alzheimer disease Sister Bone cancer CVA (cerebral vascular accident) Parkinsons disease Grandfather Myocardial infarction Grandfather Myocardial infarction Surgical History No history of previous surgery Social History household members: spouse housing: house Smoking Status: Never smoker second hand exposure: No alcohol intake: current details: socially substance use type: does not use deshaun/scientology: Bahai seatbelt use: always Vital Signs Vital Signs Vital Signs: 02/15/25 01:37 02/15/25 01:56 02/15/25 02:00 Temperature 98.2 F Temperature Source Oral Pulse Rate 78 65 Pulse Strength Respiratory Rate 14 16 Respiratory Effort Respiratory Depth Respiratory Pattern Blood Pressure 170/91 H 164/97 H Blood Pressure Mean 117 119 Blood Pressure Source Blood Pressure Position Blood Pressure Location Pulse Ox 98 98 Oxygen Delivery Method Room Air Room Air Room Air 02/15/25 02:39 02/15/25 03:00 02/15/25 03:31 Temperature Temperature Source Pulse Rate 70 67 67 Pulse Strength Respiratory Rate 15 18 18 Respiratory Effort Respiratory Depth Respiratory Pattern Blood Pressure 176/87 H 160/102 H 160/102 H Blood Pressure Mean 116 121 121 Blood Pressure Source Blood Pressure Position Blood Pressure Location Pulse Ox 99 98 96 Oxygen Delivery Method Room Air Room Air Room Air 02/15/25 04:25 02/15/25 04:26 02/15/25 05:00 Temperature 98.5 F 98.5 F Temperature Source Oral Pulse Rate 66 66 62 Pulse Strength Respiratory Rate 16 16 16 Respiratory Effort Respiratory Depth Respiratory Pattern Blood Pressure 168/91 H 168/91 H 127/77 H Blood Pressure Mean 116 116 93 Blood Pressure Source Blood Pressure Position Blood Pressure Location Pulse Ox 99 99 98 Oxygen Delivery Method Room Air Room Air 02/15/25 05:46 02/15/25 06:00 02/15/25 07:48 Temperature 97.8 F Temperature Source Oral Pulse Rate 73 Pulse Strength Normal (2+) Respiratory Rate 16 Respiratory Effort Normal Non-Labored Respiratory Depth Normal Respiratory Pattern Normal Blood Pressure 169/100 H Blood Pressure Mean 123 Blood Pressure Source Monitor Blood Pressure Position Semi-Fowlers Blood Pressure Location Right Arm Pulse Ox 97 Oxygen Delivery Method Room Air Room Air 02/15/25 07:48 02/15/25 09:16 Temperature Temperature Source Pulse Rate Pulse Strength Respiratory Rate Respiratory Effort Normal Non-Labored Respiratory Depth Normal Respiratory Pattern Normal Blood Pressure Blood Pressure Mean Blood Pressure Source Blood Pressure Position Blood Pressure Location Pulse Ox 94 Oxygen Delivery Method Room Air Room Air Weight Weight: 54.5 kg Body Mass Index (BMI) 20.0 EEG Results Procedure Details EEG Procedure Details: ANTHONY CHAUDHARY is a 69 year old F with a past medical history of , who presents for evaluation of Electroencephalogram on DATE at TIME Physical Exam Neuro oriented x3 and CN's II-XII intact bilaterally Neuro Narrative: Decreased facial expression/blink rate. Neck stiffness. Decrement with finger tap L>R. Sensorium / Orientation: awake, alert, oriented to person, oriented to place andoriented to time Cranial Nerves: CN normal except as noted Sensory Exam: extremities light-touch: normal (normal throghout) Motor Exam: strength 5/5 throughout, no pronator drift, no tremor and muscle tone abnormal other: LUE, RLE and LLE (Increased tone in the LUE>LLE>RLE) Coordination: [id number] test normal Lab / Micro Data 02/15/25 01:43 02/15/25 01:43 Labs: Laboratory Results - last 24 hr 02/15/25 01:43: WBC 3.8 L, RBC 3.80 L, Hgb 12.4, Hct 36.9 L, MCV 97.1, MCH 32.6 H, MCHC 33.6, RDW Std Deviation 47.3 H, RDW Coeff of Milly 13.2, Plt Count 204, MPV 10.3, Immature Gran % (Auto) 0.300, Neut % (Auto) 51.6, Lymph % (Auto) 21.8,Mclean % (Auto) 18.9 H, Eos % (Auto) 5.8 H, Baso % (Auto) 1.6 H, Absolute Neuts (auto) 2.0, Absolute Lymphs (auto) 0.83, Nucleated RBC % 0, PT 13.6, INR 1.0, APTT 31.9, Sodium 140, Potassium 3.6, Chloride 105, Carbon Dioxide 24.4, Anion Gap 10, BUN 26 H, Creatinine 0.68 L, Estim Creat Clear Calc 57.94, Est GFR (MDRD) Non-Af 93, BUN/Creatinine Ratio 38.2 H, Glucose 103 H, Calcium 9.2, Troponin T High Sens 19 H 02/15/25 03:12: Urine Color Yellow, Urine Clarity Clear, Urine pH 7.0, Ur Specific [place] 1.010, Urine Protein 15 H, Urine Glucose (UA) Normal, Urine Ketones Negative, Urine Occult Blood 25 H, Urine Nitrite Negative, Urine Bilirubin Negative, Urine Urobilinogen Normal, Ur Leukocyte Esterase Negative, Urine RBC 0 SEEN, Urine WBC 0 SEEN, Ur Squamous Epith Cells 0 SEEN, Urine Bacteria RARE, Urine Mucus 0 SEEN 02/15/25 03:45: Troponin T Hi Sens 2 Hr 20 H 02/15/25 06:40: Troponin T Hi Sens 4Hr 19 H, Triglycerides 40, Cholesterol 273 H, LDL Cholesterol, Calc 160, VLDL Cholesterol 8, HDL Cholesterol 105, Cholesterol/HDL Ratio 2.60 Imaging Radiology Impression Brain CT 02/15/25 01:56 IMPRESSION: No intracranial hemorrhage, mass effect or CT evidence of large vascular territory acute infarct. Age commensurate chronic and involutional changes. Findings verbally reported by myself to Dr. Dejesus at 2:35 a.m. 02/15/2025 Reading Location: [facility] Head/Neck CTA 02/15/25 01:56 IMPRESSION: Undulating vessels. No CTA head or neck flow significant stenosis, dissection, vessel cut off or aneurysm as above. Reading Location: [facility] Active Medications Active Medications Active Medications: Current Medications Generic Name Dose Route Start Last Admin Trade Name Freq PRN Reason Stop Dose Admin Acetaminophen 1,000 mg 02/15/25 06:00 02/15/25 06:23 Acetaminophen 500 Mg Tablet PO 1,000 mg Q8 JENNY Administration Aspirin 81 mg 02/15/25 08:00 Aspirin 81 Mg Tab.Chew PO BREAKFAST JENNY Atorvastatin Calcium 80 mg 02/15/25 22:00 Atorvastatin Calcium 80 Mg Tablet PO QHS JENNY Baclofen 10 mg 02/15/25 06:00 02/15/25 06:23 Baclofen 10 Mg Tablet PO 10 mg 0600,1200,1600 JENNY Administration Baclofen 30 mg 02/15/25 22:00 Baclofen 10 Mg Tablet PO QHS JENNY Carbidopa/Levodopa 1 tablet 02/15/25 07:00 02/15/25 06:23 Carbidopa/Levodopa Cr 50/200 Tablet PO 1 tablet ACHS JENNY Administration Citalopram Hydrobromide 10 mg 02/15/25 10:00 Citalopram 10 Mg Tablet PO DAILY JENNY Hydralazine HCl 5 mg 02/15/25 05:35 Hydralazine 20 Mg/Ml Vial IV 02/16/25 05:35 Q30M PRN maintain BP parameters with HR <60 Sodium Chloride 250 mls @ 15 mls/hr 02/15/25 06:03 IV .[id number] PRN Saline Flush Sodium Chloride 250 mls @ 15 mls/hr 02/15/25 06:03 IV .[id number] PRN Additional IVPB Infusion Labetalol HCl 10 - 20 mg 02/15/25 05:35 Labetalol 20 Mg/4 Ml Vial IV 02/16/25 05:35 Q10M PRN PRN maintain BP parameters with HR >/=60 Pramipexole Dihydrochloride 1.5 mg 02/15/25 10:00 Pramipexole Di-Hcl 0.5 Mg Tablet PO BID JENNY Sodium Chloride 10 - 40 ml 02/15/25 06:03 0.9% Saline Lock 10 Ml Syringe IV UD PRN SALINE FLUSH NIHSS NIHSS Nursing Documentation NIHSS Nursing Documentation: NIH Stroke Scale Start: 02/15/25 01:47 Freq: Status: Discharge Protocol: Activity Type Activity Date Activity User E-sign Co-sign Detail Recorded Client Recorded Date Recorded By Document 02/15/25 01:47 ET fg 02/15/25 01:48 ET 02/15/25 01:47 NIH Stroke Scale [NIHSS] A score of 0 is normal or asymptomatic . Total possible score is 42. Inpatient: RN or Physician to activate a stroke alert for onset of new stroke symptoms or with NIHSS increase >/= 3 points. Following change in neurological status, NIHSS will be performed per physician order or more frequently PRN. -1a. Level of Consciousness 0 - Alert; keenly responsive -1b. LOC Questions 0 - Answers BOTH questions correctly -1c. LOC Commands 0 - Performs BOTH tasks correctly -2. Best Gaze 0 - Normal -3. Visual 0 - No visual loss -4. Facial Palsy 0 - Normal symmetrical movements -5a. Left Arm 0 - No drift; arm holds 90 ( or 45) degrees for full 10 seconds -5b. Right Arm 0 - No drift; arm holds 90 ( or 45) degrees for full 10 seconds -6a. Left Leg 1 - Drift; leg falls by the end of 5- seconds, but does not hit bed -6b. Right Leg 1 - Drift; leg falls by the end of 5- seconds, but does not hit bed -7. Limb Ataxia 2 - Present in 2 limbs -8. Sensory 1 - Mild-to- moderate sensory loss; -9. Best Language 0 - No aphasia; normal -10. Dysarthria 0 - Normal -11. Extinction and Inattention 0 - No abnormality -Total 5 Query Text:A score of 0 is normal or asymptomatic. Total possible score is 42 . ED: Notify Physician for NIHSS increase by > / = 3 points. Inpatient: RN or Physician to activate a stroke alert for NIHSS increase of > / = 3 points. NIHSS: Ischemic Stroke/TIA Start: 02/15/25 05:35 Text: For PCU Patients: NIH and Neuro Check every 4 Status: Active hours, PRN and with change in RN caregiver. Freq: [id number] Protocol: Activity Type Activity Date Activity User E-sign Co-sign Detail Recorded Client Recorded Date Recorded By Document 02/15/25 05:46 BARBARA desktop 02/15/25 05:47 JS 02/15/25 05:46 -1a. Level of Consciousness 0 - Alert; keenly responsive -1b. LOC Questions 0 - Answers BOTH questions correctly -1c. LOC Commands 0 - Performs BOTH tasks correctly -2. Best Gaze 0 - Normal -3. Visual 0 - No visual loss -4. Facial Palsy 1 - Minor paralysis ( flattened nasolabial fold , asymmetry on smiling) -5a. Left Arm 0 - No drift; arm holds 90 ( or 45) degrees for full 10 seconds -5b. Right Arm 0 - No drift; arm holds 90 ( or 45) degrees for full 10 seconds -6a. Left Leg 0 - No drift; leg holds 30- degree position for full 5 seconds -6b. Right Leg 0 - No drift; leg holds 30- degree position for full 5 seconds -7. Limb Ataxia 1 - Present in 1 limb -8. Sensory 0 - Normal; no sensory loss -9. Best Language 0 - No aphasia; normal -10. Dysarthria 0 - Normal -11. Extinction and Inattention 0 - No abnormality -Total 2 Query Text:A score of 0 is normal or asymptomatic. Total possible score is 42 . ED: Notify Physician for NIHSS increase by > / = 3 points. Inpatient: RN or Physician to activate a stroke alert for NIHSS increase of > / = 3 points. Coma Scale [Assess] -Eye Opening Spontaneous -Motor Obeys Commands -Verbal Oriented [Total] -Coma Scale Total 15 02/15/25 1003 <Electronically signed by Leilani Zapata MD> Cosigner Signature (if applicable): CC: Dr. Eleanor Armstrong, DO~ Signed [facility] Work Phone: [phone] 419-240405-30-2025 Discharge summary Author Drew Dejesus [facility] Note Date/Time February 15, 2025 9:07a m [facility] Medical Records Department [address] [place] [address] Emergency Department Summary 02/15/25 MR#: [id number] Acct: [id number] Name: ANTHONY CHAUDHARY Rep #:[id number] : 1955 69 From: Drew Arriola PCP: Dr. Eleanor Armstrong DO Status:AD M [place] Location: [place] [address] HPI History of Present Illness Chief Complaint: Neuro S/Sx Informant: patient and spouse/S.O. Narrative Narrative: History of Parkinson's ambulates with a walker at baseline. Here with spouse byprivate vehicle for evaluation. States at 3 AM yesterday noted 24 hours she gotup she had to hold the wall for balance stated feeling weak. got her back in bed 10 minutes later she walked out to her recliner. Reports was able to walk for breakfast to the kitchen table. They had a neurology appoint with Dr. Truong at 11 AM for which she walked there. She has been dealing with neuropathy pain to her lower legs. 3 weeks ago was seen in the office she has had outpatient nerve conduction studies. She was put on baclofen at that time. They follow-up today states additional nerve testing is ordered. Her baclofen was increased however that has not been taken yet. Reports that 8 PM patient got weak again unstable balance. At the dinner table had trouble moving her right arm and shaking. No headaches no trouble speaking. He helped patient back to the recliner, however she had an accident with urine therefore he had toclean her in the shower. Decided to bring her in to be evaluated. She denies recent vomiting or diarrhea denies urinary symptoms denies any cough. Prior similar symptoms: No PFSH PFSH Medical History Parkinson disease COVID-19 Acute bronchitis, unspecified Anemia Neck pain Shoulder pain Home Medications ?Medication ?Instructions ?Recorded ?Last Taken ?Type magnesium 200 mg tablet 200 mg PO DAILY 10/27/21 History citalopram 10 mg tablet (Celexa) 10 mg PO DAILY 02/13/25 History coenzyme Q10 30 mg capsule 30 mg PO DAILY 11/08/22 History omega-3 fatty acids 1,000 mg 1,000 mg PO DAILY 3 02/13/25 History capsule ropinirole 3 mg tablet 3 mg PO BID #60 tabs 5 02/14/25 Rx carbidopa ER 25 mg-levodopa 100 mg 2 tab PO .QID #240 tabs 01/28/25 02/15/25 Rx tablet,extended release naproxen 500 mg tablet 500 mg PO BID PRN pain #60 t abs 01/28/25 02/14/25 Rx baclofen 10 mg tablet See Rx Instructions .Route 0 02/14/25 02/14/25 Rx .COMPLEX muscle pain/muscle spasm #180 tabs multivitamin (Daily Multi-Vitamin 1 tab PO DAILY 02/1502/13/25 History tablet) Allergy/AdvReac Type Severity Reaction Status Date / Time No Known Allergies Allergy Verified 02/15/25 06:04 Family History Mother Non-Hodgkin lymphoma Father Alzheimer disease Sister Bone cancer CVA (cerebral vascular accident) Parkinsons disease Grandfather Myocardial infarction Grandfather Myocardial infarction Surgical History No history of previous surgery Social History household members: spouse housing: house Smoking Status: Never smoker second hand exposure: No alcohol intake: current details: socially substance use type: does not use deshaun/scientology: Bahai seatbelt use: always ROS ROS ED Constitutional Constitutional ED: Denies chills, fever(s) or sweats ENT ENT ED: Denies sore throat Cardiovascular Cardiovascular: Denies chest pain, leg edema, palpitations or racing heartbeat Respiratory/Chest Respiratory/Chest: Denies cough, dyspnea or dyspnea on exertion Gastrointestinal Gastrointestinal: Denies abdominal pain, diarrhea, nausea or vomiting Genitourinary Genitourinary ED: Denies dysuria, hematuria or urinary frequency Musculoskeletal Musculoskeletal: Denies back pain, extremity pain or neck pain Integumentary Denies rash or wounds Neurologic Neurologic: Reports weakness and other Details: Unstable gait. ; Denies headache(s) or paresthesias EXAM Physical Exam Const Vital Signs: 02/15/25 01:37 02/15/25 01:56 02/15/25 02:00 Temperature 98.2 F Temperature Source Oral Pulse Rate 78 65 Respiratory Rate 14 16 Blood Pressure 170/91 H 164/97 H Blood Pressure Mean 117 119 Pulse Ox 98 98 Oxygen Delivery Method Room Air Room Air Room Air 02/15/25 02:39 02/15/25 03:00 02/15/25 03:31 Temperature Temperature Source Pulse Rate 70 67 67 Respiratory Rate 15 18 18 Blood Pressure 176/87 H 160/102 H 160/102 H Blood Pressure Mean 116 121 121 Pulse Ox 99 98 96 Oxygen Delivery Method Room Air Room Air Room Air 02/15/25 04:25 02/15/25 04:26 Temperature 98.5 F 98.5 F Temperature Source Oral Pulse Rate 66 66 Respiratory Rate 16 16 Blood Pressure 168/91 H 168/91 H Blood Pressure Mean 116 116 Pulse Ox 99 99 Oxygen Delivery Method Room Air Positive well nourished and well developed General Appearance ED: well developed and NAD HEENT Reports moist mucous membranes normocephalic and atraumatic Eyes General Eye ED: Yes normal appearance of both eyes Neck full ROM Chest Wall Chest: Negative for tenderness Resp normal respiratory effort and normal air movement Effort and Inspection: symmetric chest movement; Negative for respiratory distress Cardio regular rate, regular rhythm and no murmurs Peripheral Pulses: pulses 2+ throughout GI normal to inspection, nondistended, normoactive bowel sounds and non-tender Palpation: Negative for guarding or rebound tenderness present Extremity normal to inspection General Extremety ED: Negative for edema or tenderness General Extremity: Negative for edema Neuro oriented x3, CN's II-XII intact bilaterally and no sensory deficits noted Neuro Narrative: NIH of 0. Sensorium / Orientation: awake and alert Skin no rashes or lesions noted and no wounds MDM MDM MDM Narrative Medical decision making narrative: Interventions / MDM: Differential diagnosis: History of Parkinson's, transient right arm weakness, unsteady gait, TIA Diagnosis considered but do not suspect: Intracranial hemorrhage however CT negative. My EKG interpretation: Sinus rate of 65, no ST changes. QTc 434. Imaging independently reviewed and interpreted by myself: CT brain: No acute process. CT angiogram head and neck: No acute process. External documents reviewed: Last MRI brain scan in 2020. Test considered but not ordered:N/A ED course: Patient weakness unstable gait started 3 AM yesterday nearly 24 hoursago. It improved and reoccurred 8 PM. Reporting unstable gait and balance. Reported difficulty with her right upper extremity that was transient. NIH of 0. Secondary to stroke workup initiated for further evaluation. CT head CT angiogram head and neck for further evaluation. 0340: Image studies negative labs normal EKG sinus rhythm. Urine negative. Initial troponin 19. No chest pains. Repeat pending. Patient was ambulated with her walker she seemed to walk straight however slower than normal confirmedby spouse. I discussed their concerns, she had reported weakness to the right upper extremity which was new along with waxing waning balance and weakness since 3 AM. Discussed possible TIA in the differential. Feel she will benefit for admission for an MRI. I will discuss with hospitalist. I spoke with Dr. Becerril for admission to PCU. Re-evaluation: stable Disposition discussed with patient/family/significant other: Patient and spouse Case discussed with consulting clinician: Hospitalist This note was generated with [employer] dictation software. It may contain incorrectwords, spelling, and punctuation that were not noted in checking the note beforesigning. Lab Data Attestation: I reviewed the patient's lab results. Labs: Laboratory Results - last 24 hr 02/15/25 02/15/25 02/15/25 01:43 03:12 03:45 WBC 3.8 L RBC 3.80 L Hgb 12.4 Hct 36.9 L MCV 97.1 MCH 32.6 H MCHC 33.6 RDW Std Deviation 47.3 H RDW Coeff of Milly 13.2 Plt Count 204 MPV 10.3 Immature Gran % (Auto) 0.300 Neut % (Auto) 51.6 Lymph % (Auto) 21.8 Mclean % (Auto) 18.9 H Eos % (Auto) 5.8 H Baso % (Auto) 1.6 H Absolute Neuts (auto) 2.0 Absolute Lymphs (auto) 0.83 Nucleated RBC % 0 PT 13.6 INR 1.0 APTT 31.9 Sodium 140 Potassium 3.6 Chloride 105 Carbon Dioxide 24.4 Anion Gap 10 BUN 26 H Creatinine 0.68 L Estim Creat Clear Calc 57.94 Est GFR (MDRD) Non-Af 93 BUN/Creatinine Ratio 38.2 H Glucose 103 H Calcium 9.2 Troponin T High Sens 19 H Troponin T Hi Sens 2 Hr 20 H Urine Color Yellow Urine Clarity Clear Urine pH 7.0 Ur Specific [place] 1.010 Urine Protein 15 H Urine Glucose (UA) Normal Urine Ketones Negative Urine Occult Blood 25 H Urine Nitrite Negative Urine Bilirubin Negative Urine Urobilinogen Normal Ur Leukocyte Esterase Negative Urine RBC 0 SEEN Urine WBC 0 SEEN Ur Squamous Epith Cells 0 SEEN Urine Bacteria RARE Urine Mucus 0 SEEN Radiography Diagnostic Testing: Clinical Impression(s) from Imaging Studies Brain CT 02/15/25 01:56 IMPRESSION: No intracranial hemorrhage, mass effect or CT evidence of large vascular territory acute infarct. Age commensurate chronic and involutional changes. Findings verbally reported by myself to Dr. Dejesus at 2:35 a.m. 02/15/2025 Reading Location: [facility] Head/Neck CTA 02/15/25 01:56 IMPRESSION: Undulating vessels. No CTA head or neck flow significant stenosis, dissection, vessel cut off or aneurysm as above. Reading Location: [facility] Discharge Plan Dx/Rx/DC Orders Clinical Impression: Weakness of right upper extremity, Parkinson's disease, Gait instability Disposition Disposition: Acute Care Hospital [facility] Discharge Date/Time: 02/15/25 05:28 What to do if you have Problems For any increased pain, shortness of breath, bleeding, nausea or vomiting, chestpain, or any unexpected problems, contact your Primary Care Provider. Call [facility] ([phone]) or report to the closest Emergency Room. Call 911 if necessary. 02/15/25906 <Electronically signed by Drew Arriola> Cosigner Signature (if applicable): CC: Dr. Eleanor Armstrong DO ~ Signed [facility] Work Phone: 1(224) 343-486005-30-2025 Consult note [facility] Medical Records Department [address] [place] [address] Consultation - Neurology 02/15/25922 MR#: [id number] Acct: [id number] Name: ANTHONY CHAUDHARY Rep #:[id number] : 1955 69 From: Leilani Zapata MD PCP: Dr. Eleanor Armstrong, DO Status:AD M [place] Location: [address] Assessment and Plan: Neuro Assessment/Plan ANTHONY CHAUDHARY is a 69 F with a past medical history of parkinsons disease, being evaluated by Teleneurology for leg pains/stiffness and trouble walking. These are chronic issues, seem to worsen whenher sinemet is wearing off. There was reports of right sided weakness but on my examination she hasfull strength throughout. Exam findings consistent with parkinsonism, symptoms predominantly rigidity today. No symptoms to suggest an underlying neuropathy/neuropathic painalthough small fiber neuropathy could be considered if she does develop neuropathic symptoms. Diagnosis: Parkinson's disease Plan: Increase Sinemet 2 tab to 5 times daily - 6a/9a/12/3p/6p No need for MRI from neurology standpoint Would consider referral to movement disorder specialist PT evaluation Neurology will sign off I personally attended this patient and spent a total time of 37 minutes evaluating this patient including clinical assessment, review of chart, medical history imaging, and determining appropriate treatment and workup. HPI Consult Data Date of Consult: 02/15/25 HPI Narrative HPI Narrative: ANTHONY CHAUDHARY, is a 69 F who presents with pain in her feet. Reported yesterday that she had new weakness in her right arm, but she denies this. Reports she hashad pain in her legs for some time but feels that is worse. She describes this as pressure feeling like her toes are very tight and painful. She does take baclofen as needed which may help. She has a history of PD and is on Sinemet - currently on 25/100 2 tabs QID. She has reports significant benefit from this, but it does wear off. When it wears off she gets more stiff and has worsening ofthe pain/cramping in her legs/feet. She denies burning, tingling and new weakness. [facility] Medical History Parkinson disease COVID-19 Acute bronchitis, unspecified Anemia Neck pain Shoulder pain Home Medications ?Medication ?Instructions ?Recorded ?Last Taken ?Type magnesium 200 mg tablet 200 mg PO DAILY 10/27/21 History citalopram 10 mg tablet (Celexa) 10 mg PO DAILY 02/13/25 History coenzyme Q10 30 mg capsule 30 mg PO DAILY 11/08/22 History omega-3 fatty acids 1,000 mg 1,000 mg PO DAILY 3 02/13/25 History capsule ropinirole 3 mg tablet 3 mg PO BID #60 tabs 5 02/14/25 Rx carbidopa ER 25 mg-levodopa 100 mg 2 tab PO .QID #240 tabs 01/28/25 02/15/25 Rx tablet,extended release naproxen 500 mg tablet 500 mg PO BID PRN pain #60 t abs 01/28/25 02/14/25 Rx baclofen 10 mg tablet See Rx Instructions .Route 0 02/14/25 02/14/25 Rx .COMPLEX muscle pain/muscle spasm #180 tabs multivitamin (Daily Multi-Vitamin 1 tab PO DAILY 02/1502/13/25 History tablet) Allergy/AdvReac Type Severity Reaction Status Date / Time No Known Allergies Allergy Verified 02/15/25 06:04 Family History Mother Non-Hodgkin lymphoma Father Alzheimer disease Sister Bone cancer CVA (cerebral vascular accident) Parkinsons disease Grandfather Myocardial infarction Grandfather Myocardial infarction Surgical History No history of previous surgery Social History household members: spouse housing: house Smoking Status: Never smoker second hand exposure: No alcohol intake: current details: socially substance use type: does not use deshaun/scientology: Bahai seatbelt use: always Vital Signs Vital Signs Vital Signs: 02/15/25 01:37 02/15/25 01:56 02/15/25 02:00 Temperature 98.2 F Temperature Source Oral Pulse Rate 78 65 Pulse Strength Respiratory Rate 14 16 Respiratory Effort Respiratory Depth Respiratory Pattern Blood Pressure 170/91 H 164/97 H Blood Pressure Mean 117 119 Blood Pressure Source Blood Pressure Position Blood Pressure Location Pulse Ox 98 98 Oxygen Delivery Method Room Air Room Air Room Air 02/15/25 02:39 02/15/25 03:00 02/15/25 03:31 Temperature Temperature Source Pulse Rate 70 67 67 Pulse Strength Respiratory Rate 15 18 18 Respiratory Effort Respiratory Depth Respiratory Pattern Blood Pressure 176/87 H 160/102 H 160/102 H Blood Pressure Mean 116 121 121 Blood Pressure Source Blood Pressure Position Blood Pressure Location Pulse Ox 99 98 96 Oxygen Delivery Method Room Air Room Air Room Air 02/15/25 04:25 02/15/25 04:26 02/15/25 05:00 Temperature 98.5 F 98.5 F Temperature Source Oral Pulse Rate 66 66 62 Pulse Strength Respiratory Rate 16 16 16 Respiratory Effort Respiratory Depth Respiratory Pattern Blood Pressure 168/91 H 168/91 H 127/77 H Blood Pressure Mean 116 116 93 Blood Pressure Source Blood Pressure Position Blood Pressure Location Pulse Ox 99 99 98 Oxygen Delivery Method Room Air Room Air 02/15/25 05:46 02/15/25 06:00 02/15/25 07:48 Temperature 97.8 F Temperature Source Oral Pulse Rate 73 Pulse Strength Normal (2+) Respiratory Rate 16 Respiratory Effort Normal Non-Labored Respiratory Depth Normal Respiratory Pattern Normal Blood Pressure 169/100 H Blood Pressure Mean 123 Blood Pressure Source Monitor Blood Pressure Position Semi-Fowlers Blood Pressure Location Right Arm Pulse Ox 97 Oxygen Delivery Method Room Air Room Air 02/15/25 07:48 02/15/25 09:16 Temperature Temperature Source Pulse Rate Pulse Strength Respiratory Rate Respiratory Effort Normal Non-Labored Respiratory Depth Normal Respiratory Pattern Normal Blood Pressure Blood Pressure Mean Blood Pressure Source Blood Pressure Position Blood Pressure Location Pulse Ox 94 Oxygen Delivery Method Room Air Room Air Weight Weight: 54.5 kg Body Mass Index (BMI) 20.0 EEG Results Procedure Details EEG Procedure Details: ANTHONY CHAUDHARY is a 69 year old F with a past medical history of , who presents for evaluation of Electroencephalogram on DATE at TIME Physical Exam Neuro oriented x3 and CN's II-XII intact bilaterally Neuro Narrative: Decreased facial expression/blink rate. Neck stiffness. Decrement with finger tap L>R. Sensorium / Orientation: awake, alert, oriented to person, oriented to place andoriented to time Cranial Nerves: CN normal except as noted Sensory Exam: extremities light-touch: normal (normal throghout) Motor Exam: strength 5/5 throughout, no pronator drift, no tremor and muscle tone abnormal other: LUE, RLE and LLE (Increased tone in the LUE>LLE>RLE) Coordination: [id number] test normal Lab / Micro Data 02/15/25 01:43 02/15/25 01:43 Labs: Laboratory Results - last 24 hr 02/15/25 01:43: WBC 3.8 L, RBC 3.80 L, Hgb 12.4, Hct 36.9 L, MCV 97.1, MCH 32.6 H, MCHC 33.6, RDW Std Deviation 47.3 H, RDW Coeff of Milly 13.2, Plt Count 204, MPV 10.3, Immature Gran % (Auto) 0.300, Neut % (Auto) 51.6, Lymph % (Auto) 21.8,Mclean % (Auto) 18.9 H, Eos % (Auto) 5.8 H, Baso % (Auto) 1.6 H, Absolute Neuts (auto) 2.0, Absolute Lymphs (auto) 0.83, Nucleated RBC % 0, PT 13.6, INR 1.0, APTT 31.9, Sodium 140, Potassium 3.6, Chloride 105, Carbon Dioxide 24.4, Anion Gap 10, BUN 26 H, Creatinine 0.68 L, Estim Creat Clear Calc 57.94, Est GFR (MDRD) Non-Af 93, BUN/Creatinine Ratio 38.2 H, Glucose 103 H, Calcium 9.2, Troponin T High Sens 19 H 02/15/25 03:12: Urine Color Yellow, Urine Clarity Clear, Urine pH 7.0, Ur Specific [place] 1.010, Urine Protein 15 H, Urine Glucose (UA) Normal, Urine Ketones Negative, Urine Occult Blood 25 H, UrineNitrite Negative, Urine Bilirubin Negative, Urine Urobilinogen Normal, Ur Leukocyte Esterase Negative, Urine RBC 0 SEEN, Urine WBC 0 SEEN, Ur Squamous Epith Cells 0 SEEN, Urine Bacteria RARE, Urine Mucus 0 SEEN 02/15/25 03:45: Troponin T Hi Sens 2 Hr 20 H 02/15/25 06:40: Troponin T Hi Sens 4Hr 19 H, Triglycerides 40, Cholesterol 273 H, LDL Cholesterol, Calc 160, VLDL Cholesterol 8, HDL Cholesterol 105, Cholesterol/HDL Ratio 2.60 Imaging Radiology Impression Brain CT 02/15/25 01:56 IMPRESSION: No intracranial hemorrhage, mass effect or CT evidence of large vascular territory acute infarct. Age commensurate chronic and involutional changes. Findings verbally reported by myself to Dr. Dejesus at 2:35 a.m. 02/15/2025 Reading Location: [facility] Head/Neck CTA 02/15/25 01:56 IMPRESSION: Undulating vessels. No CTA head or neck flow significant stenosis, dissection, vessel cut off or aneurysm as above. Reading Location: [facility] Active Medications Active Medications Active Medications: Current Medications Generic Name Dose Route Start Last Admin Trade Name Freq PRN Reason Stop Dose Admin Acetaminophen 1,000 mg 02/15/25 06:00 02/15/25 06:23 Acetaminophen 500 Mg Tablet PO 1,000 mg Q8 JNENY Administration Aspirin 81 mg 02/15/25 08:00 Aspirin 81 Mg Tab.Chew PO BREAKFAST JENNY Atorvastatin Calcium 80 mg 02/15/25 22:00 Atorvastatin Calcium 80 Mg Tablet PO QHS JENNY Baclofen 10 mg 02/15/25 06:00 02/15/25 06:23 Baclofen 10 Mg Tablet PO 10 mg 0600,1200,1600 JENNY Administration Baclofen 30 mg 02/15/25 22:00 Baclofen 10 Mg Tablet PO QHS JENNY Carbidopa/Levodopa 1 tablet 02/15/25 07:00 02/15/25 06:23 Carbidopa/Levodopa Cr 50/200 Tablet PO 1 tablet ACHS JENNY Administration Citalopram Hydrobromide 10 mg 02/15/25 10:00 Citalopram 10 Mg Tablet PO DAILY JENNY Hydralazine HCl 5 mg 02/15/25 05:35 Hydralazine 20 Mg/Ml Vial IV 02/16/25 05:35 Q30M PRN maintain BP parameters with HR <60 Sodium Chloride 250 mls @ 15 mls/hr 02/15/25 06:03 IV .[id number] PRN Saline Flush Sodium Chloride 250 mls @ 15 mls/hr 02/15/25 06:03 IV .[id number] PRN Additional IVPB Infusion Labetalol HCl 10 - 20 mg 02/15/25 05:35 Labetalol 20 Mg/4 Ml Vial IV 02/16/25 05:35 Q10M PRN PRN maintain BP parameters with HR >/=60 Pramipexole Dihydrochloride 1.5 mg 02/15/25 10:00 Pramipexole Di-Hcl 0.5 Mg Tablet PO BID JENNY Sodium Chloride 10 - 40 ml 02/15/25 06:03 0.9% Saline Lock 10 Ml Syringe IV UD PRN SALINE FLUSH NIHSS NIHSS Nursing Documentation NIHSS Nursing Documentation: NIH Stroke Scale Start: 02/15/25 01:47 Freq: Status: Discharge Protocol: Activity Type Activity Date Activity User E-sign Co-sign Detail Recorded Client Recorded Date Recorded By Document 02/15/25 01:47 ET [facility] 02/15/25 01:48 ET 02/15/25 01:47 NIH Stroke Scale [NIHSS] A score of 0 is normal or asymptomatic . Total possible score is 42. Inpatient: RN or Physician to activate a stroke alert for onset of new stroke symptoms or with NIHSS increase >/= 3 points. Following change in neurological status, NIHSS will be performed per physician order or more frequently PRN. -1a. Level of Consciousness 0 - Alert; keenly responsive -1b. LOC Questions 0 - Answers BOTH questions correctly -1c. LOC Commands 0 - Performs BOTH tasks correctly -2. Best Gaze 0 - Normal -3. Visual 0 - No visual loss -4. Facial Palsy 0 - Normal symmetrical movements -5a. Left Arm 0 - No drift; arm holds 90 ( or 45) degrees for full 10 seconds -5b. Right Arm 0 - No drift; arm holds 90 ( or 45) degrees for full 10 seconds -6a. Left Leg 1 - Drift; leg falls by the end of 5- seconds, but does not hit bed -6b. Right Leg 1 - Drift; leg falls by the end of 5- seconds, but does not hit bed -7. Limb Ataxia 2 - Present in 2 limbs -8. Sensory 1 - Mild-to- moderate sensory loss; -9. Best Language 0 - No aphasia; normal -10. Dysarthria 0 - Normal -11. Extinction and Inattention 0 - No abnormality -Total 5 Query Text:A score of 0 is normal or asymptomatic. Total possible score is 42 . ED: Notify Physician for NIHSS increase by > / = 3 points. Inpatient: RN or Physician to activate a stroke alert for NIHSS increase of > / = 3 points. NIHSS: Ischemic Stroke/TIA Start: 02/15/25 05:35 Text: For PCU Patients: NIH and Neuro Check every 4 Status: Active hours, PRN and with change in RN caregiver. Freq: [id number] Protocol: Activity Type Activity Date Activity User E-sign Co-sign Detail Recorded Client Recorded Date Recorded By Document 02/15/25 05:46 JS desktop 02/15/25 05:47 JS 02/15/25 05:46 -1a. Level of Consciousness 0 - Alert; keenly responsive -1b. LOC Questions 0 - Answers BOTH questions correctly -1c. LOC Commands 0 - Performs BOTH tasks correctly -2. Best Gaze 0 - Normal -3. Visual 0 - No visual loss -4. Facial Palsy 1 - Minor paralysis ( flattened nasolabial fold , asymmetry on smiling) -5a. Left Arm 0 - No drift; arm holds 90 ( or 45) degrees for full 10 seconds -5b. Right Arm 0 - No drift; arm holds 90 ( or 45) degrees for full 10 seconds -6a. Left Leg 0 - No drift; leg holds 30- degree position for full 5 seconds -6b. Right Leg 0 - No drift; leg holds 30- degree position for full 5 seconds -7. Limb Ataxia 1 - Present in 1 limb -8. Sensory 0 - Normal; no sensory loss -9. Best Language 0 - No aphasia; normal -10. Dysarthria 0 - Normal -11. Extinction and Inattention 0 - No abnormality -Total 2 Query Text:A score of 0 is normal or asymptomatic. Total possible score is 42 . ED: Notify Physician for NIHSS increase by > / = 3 points. Inpatient: RN or Physician to activate a stroke alert for NIHSS increase of > / = 3 points. Coma Scale [Assess] -Eye Opening Spontaneous -Motor Obeys Commands -Verbal Oriented [Total] -Coma Scale Total 15 02/15/25 1003 Cosigner Signature (if applicable): CC: Dr. Eleanor Armstrong, DO~ Signed [facility]05-30-2025 Discharge summary [facility] Medical Records Department [address] [place] [address] Emergency Department Summary 02/15/25 MR#: [id number] Acct: [id number] Name: ANTHONY CHAUDHARY Rep #:[id number] : 1955 69 From: Drew Arriola PCP: Dr. Eleanor Armstrong, DO Status:AD M [place] Location: [place] [address] HPI History of Present Illness Chief Complaint: Neuro S/Sx Informant: patient and spouse/S.O. Narrative Narrative: History of Parkinson's ambulates with a walker at baseline. Here with spouse byprivate vehicle for evaluation. States at 3 AM yesterday noted 24 hours she gotup she had to hold the wall for balance stated feeling weak. got her back in bed 10 minutes later she walked out to her recliner. Reports was able to walk for breakfast to the kitchen table. They had a neurology appoint with Dr. Truong at 11 AM for which she walked there. She has been dealing with neuropathy pain to her lower legs. 3 weeks ago was seen in the office she has had outpatient nerve conduction studies. She was put onbaclofen at that time. They follow-up today states additional nerve testing is ordered. Her baclofen was increased however that has not been taken yet. Reports that 8 PM patient got weak again unstable balance. At the dinner table had trouble moving her right arm and shaking. No headaches no trouble speaking. He helped patient back to the recliner, however she had an accident with urine thereforehe had toclean her in the shower. Decided to bring her in to be evaluated. She denies recent vomiting or diarrhea denies urinary symptoms denies any cough. Prior similar symptoms: No PFSH PFSH Medical History Parkinson disease COVID-19 Acute bronchitis, unspecified Anemia Neck pain Shoulder pain Home Medications ?Medication ?Instructions ?Recorded ?Last Taken ?Type magnesium 200 mg tablet 200 mg PO DAILY 10/27/21 History citalopram 10 mg tablet (Celexa) 10 mg PO DAILY 02/13/25 History coenzyme Q10 30 mg capsule 30 mg PO DAILY 11/08/22 History omega-3 fatty acids 1,000 mg 1,000 mg PO DAILY 3 02/13/25 History capsule ropinirole 3 mg tablet 3 mg PO BID #60 tabs 5 02/14/25 Rx carbidopa ER 25 mg-levodopa 100 mg 2 tab PO .QID #240 tabs 01/28/25 02/15/25 Rx tablet,extended release naproxen 500 mg tablet 500 mg PO BID PRN pain #60 t abs 01/28/25 02/14/25 Rx baclofen 10 mg tablet See Rx Instructions .Route 0 02/14/25 02/14/25 Rx .COMPLEX muscle pain/muscle spasm #180 tabs multivitamin (Daily Multi-Vitamin 1 tab PO DAILY 02/1502/13/25 History tablet) Allergy/AdvReac Type Severity Reaction Status Date / Time No Known Allergies Allergy Verified 02/15/25 06:04 Family History Mother Non-Hodgkin lymphoma Father Alzheimer disease Sister Bone cancer CVA (cerebral vascular accident) Parkinsons disease Grandfather Myocardial infarction Grandfather Myocardial infarction Surgical History No history of previous surgery Social History household members: spouse housing: house Smoking Status: Never smoker second hand exposure: No alcohol intake: current details: socially substance use type: does not use deshaun/scientology: Bahai seatbelt use: always ROS ROS ED Constitutional Constitutional ED: Denies chills, fever(s) or sweats ENT ENT ED: Denies sore throat Cardiovascular Cardiovascular: Denies chest pain, leg edema, palpitations or racing heartbeat Respiratory/Chest Respiratory/Chest: Denies cough, dyspnea or dyspnea on exertion Gastrointestinal Gastrointestinal: Denies abdominal pain, diarrhea, nausea or vomiting Genitourinary Genitourinary ED: Denies dysuria, hematuria or urinary frequency Musculoskeletal Musculoskeletal: Denies back pain, extremity pain or neck pain Integumentary Denies rash or wounds Neurologic Neurologic: Reports weakness and other Details: Unstable gait. ; Denies headache(s) or paresthesias EXAM Physical Exam Const Vital Signs: 02/15/25 01:37 02/15/25 01:56 02/15/25 02:00 Temperature 98.2 F Temperature Source Oral Pulse Rate 78 65 Respiratory Rate 14 16 Blood Pressure 170/91 H 164/97 H Blood Pressure Mean 117 119 Pulse Ox 98 98 Oxygen Delivery Method Room Air Room Air Room Air 02/15/25 02:39 02/15/25 03:00 02/15/25 03:31 Temperature Temperature Source Pulse Rate 70 67 67 Respiratory Rate 15 18 18 Blood Pressure 176/87 H 160/102 H 160/102 H Blood Pressure Mean 116 121 121 Pulse Ox 99 98 96 Oxygen Delivery Method Room Air Room Air Room Air 02/15/25 04:25 02/15/25 04:26 Temperature 98.5 F 98.5 F Temperature Source Oral Pulse Rate 66 66 Respiratory Rate 16 16 Blood Pressure 168/91 H 168/91 H Blood Pressure Mean 116 116 Pulse Ox 99 99 Oxygen Delivery Method Room Air Positive well nourished and well developed General Appearance ED: well developed and NAD HEENT Reports moist mucous membranes normocephalic and atraumatic Eyes General Eye ED: Yes normal appearance of both eyes Neck full ROM Chest Wall Chest: Negative for tenderness Resp normal respiratory effort and normal air movement Effort and Inspection: symmetric chest movement; Negative for respiratory distress Cardio regular rate, regular rhythm and no murmurs Peripheral Pulses: pulses 2+ throughout GI normal to inspection, nondistended, normoactive bowel sounds and non-tender Palpation: Negative for guarding or rebound tenderness present Extremity normal to inspection General Extremety ED: Negative for edema or tenderness General Extremity: Negative for edema Neuro oriented x3, CN's II-XII intact bilaterally and no sensory deficits noted Neuro Narrative: NIH of 0. Sensorium / Orientation: awake and alert Skin no rashes or lesions noted and no wounds MDM MDM MDM Narrative Medical decision making narrative: Interventions / MDM: Differential diagnosis: History of Parkinson's, transient right arm weakness, unsteady gait, TIA Diagnosis considered but do not suspect: Intracranial hemorrhage however CT negative. My EKG interpretation: Sinus rate of 65, no ST changes. QTc 434. Imaging independently reviewed and interpreted by myself: CT brain: No acute process. CT angiogram head and neck: No acute process. External documents reviewed: Last MRI brain scan in 2020. Test considered but not ordered:N/A ED course: Patient weakness unstable gait started 3 AM yesterday nearly 24 hoursago. It improved and reoccurred 8 PM. Reporting unstable gait and balance. Reported difficulty with her right upper extremity that was transient. NIH of 0. Secondary to stroke workup initiated for further evaluation. CThead CT angiogram head and neck for further evaluation. 0340: Image studies negative labs normal EKG sinus rhythm. Urine negative. Initial troponin 19. No chest pains. Repeat pending. Patient was ambulated with her walker she seemed to walk straight however slower than normal confirmedby spouse. I discussed their concerns, she had reported weakness to the right upper extremity which was new along with waxing waning balance and weakness since 3 AM. Discussed possible TIA in the differential. Feel she will benefit for admission for an MRI. I will discuss with hospitalist. I spoke with Dr. Becerril for admission to PCU. Re-evaluation: stable Disposition discussed with patient/family/significant other: Patient and spouse Case discussed with consulting clinician: Hospitalist This note was generated with [employer] dictation software. It may contain incorrectwords, spelling, and punctuation that were not noted in checking the note beforesigning. Lab Data Attestation: I reviewed the patient's lab results. Labs: Laboratory Results - last 24 hr 02/15/25 02/15/25 02/15/25 01:43 03:12 03:45 WBC 3.8 L RBC 3.80 L Hgb 12.4 Hct 36.9 L MCV 97.1 MCH 32.6 H MCHC 33.6 RDW Std Deviation 47.3 H RDW Coeff of Milly 13.2 Plt Count 204 MPV 10.3 Immature Gran % (Auto) 0.300 Neut % (Auto) 51.6 Lymph % (Auto) 21.8 Mclean % (Auto) 18.9 H Eos % (Auto) 5.8 H Baso % (Auto) 1.6 H Absolute Neuts (auto) 2.0 Absolute Lymphs (auto) 0.83 Nucleated RBC % 0 PT 13.6 INR 1.0 APTT 31.9 Sodium 140 Potassium 3.6 Chloride 105 Carbon Dioxide 24.4 Anion Gap 10 BUN 26 H Creatinine 0.68 L Estim Creat Clear Calc 57.94 Est GFR (MDRD) Non-Af 93 BUN/Creatinine Ratio 38.2 H Glucose 103 H Calcium 9.2 Troponin T High Sens 19 H Troponin T Hi Sens 2 Hr 20 H Urine Color Yellow Urine Clarity Clear Urine pH 7.0 Ur Specific [place] 1.010 Urine Protein 15 H Urine Glucose (UA) Normal Urine Ketones Negative Urine Occult Blood 25 H Urine Nitrite Negative Urine Bilirubin Negative Urine Urobilinogen Normal Ur Leukocyte Esterase Negative Urine RBC 0 SEEN Urine WBC 0 SEEN Ur Squamous Epith Cells 0 SEEN Urine Bacteria RARE Urine Mucus 0 SEEN Radiography Diagnostic Testing: Clinical Impression(s) from Imaging Studies Brain CT 02/15/25 01:56 IMPRESSION: No intracranial hemorrhage, mass effect or CT evidence of large vascular territory acute infarct. Age commensurate chronic and involutional changes. Findings verbally reported by myself to Dr. Dejesus at 2:35 a.m. 02/15/2025 Reading Location: [facility] Head/Neck CTA 02/15/25 01:56 IMPRESSION: Undulating vessels. No CTA head or neck flow significant stenosis, dissection, vessel cut off or aneurysm as above. Reading Location: [facility] Discharge Plan Dx/Rx/DC Orders Clinical Impression: Weakness of right upper extremity, Parkinson's disease, Gait instability Disposition Disposition: Acute Care Hospital [facility] Discharge Date/Time: 02/15/25 05:28 What to do if you have Problems For any increased pain, shortness of breath, bleeding, nausea or vomiting, chestpain, or any unexpected problems, contact your Primary Care Provider. Call [facility] ([phone]) or report tothe closest Emergency Room. Call 911 if necessary. 02/15/25 0907 Cosigner Signature (if applicable): CC: Dr. Eleanor Armstrong, DO ~ Signed [facility]05-30-2025 History and physical note Author Marvin Becerril [facility] Note Date/Time February 15, 2025 6:20a m [facility] Medical Records Department [address] [place] [address] H&P Exam - Hospitalist 02/15/25 0442 MR#: [id number] Acct: [id number] Name: ANTHONY CHAUDHARY Conner Rep #:[id number] : 1955 69 From: Marvin venegas MD PCP: Dr. Eleanor Armstrong, DO Status:AD M [facility] Location: [place] [id number] HPI - General General Date of Admission: 02/15/25 HPI Narrative ANTHONY CHAUDHARY, is a 69 F who presents to the hospital with 24 hours of waxing andwaning weakness. She has a history of Parkinson's that was first diagnosed in 2021 and since then she has been tried on multiple different medications. Currently she is on baclofen for what her neurologist believes are spasms as sheis complaining of bilateral lower extremity muscle pains, she is also on ropinirole for restless leg syndrome and she is on Sinemet 2 tablets 4 times a day. Approximately 3 AM yesterday morning she had some significant weakness andgait instability and over the last 24 hours she has been having a waxing and waning weakness especially in the right upper extremity. She does have some leadpipe rigidity though the states that this is much improved as well as masked facies. He states that she also used to have a locking gait but the medications have helped with this. She is having outpatient EMG studies done and she states that the her neurologist wants to do more pinpointed nerve conduction studies as well as a possible MRI of her back. In the ER CTA of the head and neck as well as CT of the brain were negative. [facility] Medical History Parkinson disease COVID-19 Acute bronchitis, unspecified Anemia Neck pain Shoulder pain Home Medications ?Medication ?Instructions ?Recorded ?Last Taken ?Type magnesium 200 mg tablet 200 mg PO DAILY 10/27/21 History citalopram 10 mg tablet (Celexa) 10 mg PO DAILY 02/13/25 History coenzyme Q10 30 mg capsule 30 mg PO DAILY 11/08/22 History omega-3 fatty acids 1,000 mg 1,000 mg PO DAILY 3 02/13/25 History capsule ropinirole 3 mg tablet 3 mg PO BID #60 tabs 5 02/14/25 Rx carbidopa ER 25 mg-levodopa 100 mg 2 tab PO .QID #240 tabs 01/28/25 02/15/25 Rx tablet,extended release naproxen 500 mg tablet 500 mg PO BID PRN pain #60 t abs 01/28/25 02/14/25 Rx baclofen 10 mg tablet See Rx Instructions .Route 0 02/14/25 02/14/25 Rx .COMPLEX muscle pain/muscle spasm #180 tabs multivitamin (Daily Multi-Vitamin 1 tab PO DAILY 02/1502/13/25 History tablet) Allergy/AdvReac Type Severity Reaction Status Date / Time No Known Allergies Allergy Verified 02/15/25 06:04 Family History Mother Non-Hodgkin lymphoma Father Alzheimer disease Sister Bone cancer CVA (cerebral vascular accident) Parkinsons disease Grandfather Myocardial infarction Grandfather Myocardial infarction Surgical History No history of previous surgery Social History household members: spouse housing: house Smoking Status: Never smoker second hand exposure: No alcohol intake: current details: socially substance use type: does not use deshaun/scientology: Bahai seatbelt use: always ROS Constitutional Constitutional: Denies chills, fatigue, fever(s) or malaise Eyes Eyes: Denies blurry vision ENT HEENT: Denies headache(s) or nasal discharge Cardiovascular Cardiovascular: Denies chest pain, dyspnea on exertion or syncope Respiratory/Chest Respiratory/Chest: Denies cough, shortness of breath at rest or shortness of breath with exertion Gastrointestinal Gastrointestinal: Denies constipation, diarrhea, nausea or vomiting Genitourinary Genitourinary: Denies dysuria Neurologic Neurologic: Reports abnormal gait and focal weakness; Denies numbness or tremor(s) Psychiatric Psychiatric: Denies anxiety or depression Vital Signs Vital Signs Vital Signs: 02/15/25 01:37 02/15/25 01:56 02/15/25 02:00 Temperature 98.2 F Temperature Source Oral Pulse Rate 78 65 Respiratory Rate 14 16 Blood Pressure 170/91 H 164/97 H Blood Pressure Mean 117 119 Pulse Ox 98 98 Oxygen Delivery Method Room Air Room Air Room Air 02/15/25 02:39 02/15/25 03:00 02/15/25 03:31 Temperature Temperature Source Pulse Rate 70 67 67 Respiratory Rate 15 18 18 Blood Pressure 176/87 H 160/102 H 160/102 H Blood Pressure Mean 116 121 121 Pulse Ox 99 98 96 Oxygen Delivery Method Room Air Room Air Room Air 02/15/25 04:25 02/15/25 04:26 Temperature 98.5 F 98.5 F Temperature Source Oral Pulse Rate 66 66 Respiratory Rate 16 16 Blood Pressure 168/91 H 168/91 H Blood Pressure Mean 116 116 Pulse Ox 99 99 Oxygen Delivery Method Room Air Weight Weight: 125 lb 7.088 oz Body Mass Index (BMI) 20.8 Physical Exam Narrative General: Alert, Oriented x3, Cooperative, No apparent distress HEENT: Atraumatic, PERRLA, EOMI, Normocephalic Oral: Moist Mucosa Neck: Supple, No JVD Lungs: Diminished, Normal air movement, No rhonchi, No wheeze, No rales Cardiovascular: Regular rate, Regular Rhythm, Normal S1, Normal S2, No murmurs Abdomen: Soft, Non Tender, Non-Distended, No Hepato-splenomegaly Extremities: No edema, Capillary Refill Less than 3 Seconds Skin: No rashes, No breakdown Musculoskeletal: Minimal tenderness to palpation of her bilateral calfs and thighs Neurological: No obvious focal neurological deficits, she has generalized weakness with leadpipe rigidity Psych/Mental Status: Flat Results Lab / Micro Data 02/15/25 01:43 02/15/25 01:43 Labs: Laboratory Results - last 24 hr 02/15/25 01:43: WBC 3.8 L, RBC 3.80 L, Hgb 12.4, Hct 36.9 L, MCV 97.1, MCH 32.6 H, MCHC 33.6, RDW Std Deviation 47.3 H, RDW Coeff of Milly 13.2, Plt Count 204, MPV 10.3, Immature Gran % (Auto) 0.300, Neut % (Auto) 51.6, Lymph % (Auto) 21.8,Mclean % (Auto) 18.9 H, Eos % (Auto) 5.8 H, Baso % (Auto) 1.6 H, Absolute Neuts (auto) 2.0, Absolute Lymphs (auto) 0.83, Nucleated RBC % 0, PT 13.6, INR 1.0, APTT 31.9, Sodium 140, Potassium 3.6, Chloride 105, Carbon Dioxide 24.4, Anion Gap 10, BUN 26 H, Creatinine 0.68 L, Estim Creat Clear Calc 57.94, Est GFR (MDRD) Non-Af 93, BUN/Creatinine Ratio 38.2 H, Glucose 103 H, Calcium 9.2, Troponin T High Sens 19 H 02/15/25 03:12: Urine Color Yellow, Urine Clarity Clear, Urine pH 7.0, Ur Specific [place] 1.010, Urine Protein 15 H, Urine Glucose (UA) Normal, Urine Ketones Negative, Urine Occult Blood 25 H, Urine Nitrite Negative, Urine Bilirubin Negative, Urine Urobilinogen Normal, Ur Leukocyte Esterase Negative, Urine RBC 0 SEEN, Urine WBC 0 SEEN, Ur Squamous Epith Cells 0 SEEN, Urine Bacteria RARE, Urine Mucus 0 SEEN 02/15/25 03:45: Troponin T Hi Sens 2 Hr 20 H Imaging Radiology Impression Brain CT 02/15/25 01:56 IMPRESSION: No intracranial hemorrhage, mass effect or CT evidence of large vascular territory acute infarct. Age commensurate chronic and involutional changes. Findings verbally reported by myself to Dr. Dejesus at 2:35 a.m. 02/15/2025 Reading Location: [facility] Head/Neck CTA 02/15/25 01:56 IMPRESSION: Undulating vessels. No CTA head or neck flow significant stenosis, dissection, vessel cut off or aneurysm as above. Reading Location: [facility] Assessment & Plan Assessment/Plan (1) Weakness of right upper extremity: (2) Gait instability: PLAN: Plan 1. Waxing and waning right upper extremity weakness with generalized gait instability in the setting of Parkinson's disease ? Will continue with her home Parkinson's medications including Sinemet, baclofen, ropinirole ? Continue with the stroke protocol with an MRI and echocardiogram ? Will consult neurology for input on possible stroke syndrome as well as her generalized gait issues with her Parkinson's disease ? Continue with aspirin and Lipitor 2. Anxiety/depression ? Stable ? Continue escitalopram DVT: SCDs Charges/Coding Visit Charges Inpatient E&M: 27365 Init Hosp L2 02/15/25 0620 <Electronically signed by Marvin Becerril MD> Cosigner Signature (if applicable): CC: Dr. Eleanor Armstrong, DO; Dr. Marvin Becerril MD~ Signed [facility] Work Phone: [phone] 859-198705-30-2025 History and physical note [facility] Medical Records Department [address] [address] H&P Exam - Hospitalist 02/15/25 0442 MR#: [id number] Acct: [id number] Name: ANTHONY CHAUDHARY Rep #:[id number] : 1955 69 From: Marvin venegas MD PCP: Dr. Eleanor Armstrong, DO Status:AD M [place] Location: [place] [address] HPI - General General Date of Admission: 02/15/25 HPI Narrative ANTHONY CHAUDHARY, is a 69 F who presents to the hospital with 24 hours of waxing andwaning weakness. She has a history of Parkinson's that was first diagnosed in 2021 and since then she has been tried onmultiple different medications. Currently she is on baclofen for what her neurologist believes are spasms as sheis complaining of bilateral lower extremity muscle pains, she is also on ropinirole forrestless leg syndrome and she is on Sinemet 2 tablets 4 times a day. Approximately 3 AM yesterday morning she had some significant weakness andgait instability and over the last 24 hours she has beenhaving a waxing and waning weakness especially in the right upper extremity. She does have some lead pipe rigidity though the states that this is much improved as well as masked facies. He states that she also used to have a locking gait but the medications have helped with this. She is having outpatient EMG studies done and she states that the her neurologist wants to do more pinpointed nerve conduction studies as well as a possible MRI of her back. In the ER CTA of the head and neck aswell as CT of the brain were negative. [facility] Medical History Parkinson disease COVID-19 Acute bronchitis, unspecified Anemia Neck pain Shoulder pain Home Medications ?Medication ?Instructions ?Recorded ?Last Taken ?Type magnesium 200 mg tablet 200 mg PO DAILY 10/27/21 History citalopram 10 mg tablet (Celexa) 10 mg PO DAILY 02/13/25 History coenzyme Q10 30 mg capsule 30 mg PO DAILY 11/08/22 History omega-3 fatty acids 1,000 mg 1,000 mg PO DAILY 3 02/13/25 History capsule ropinirole 3 mg tablet 3 mg PO BID #60 tabs 5 02/14/25 Rx carbidopa ER 25 mg-levodopa 100 mg 2 tab PO .QID #240 tabs 01/28/25 02/15/25 Rx tablet,extended release naproxen 500 mg tablet 500 mg PO BID PRN pain #60 t abs 01/28/25 02/14/25 Rx baclofen 10 mg tablet See Rx Instructions .Route 0 02/14/25 02/14/25 Rx .COMPLEX muscle pain/muscle spasm #180 tabs multivitamin (Daily Multi-Vitamin 1 tab PO DAILY 02/1502/13/25 History tablet) Allergy/AdvReac Type Severity Reaction Status Date / Time No Known Allergies Allergy Verified 02/15/25 06:04 Family History Mother Non-Hodgkin lymphoma Father Alzheimer disease Sister Bone cancer CVA (cerebral vascular accident) Parkinsons disease Grandfather Myocardial infarction Grandfather Myocardial infarction Surgical History No history of previous surgery Social History household members: spouse housing: house Smoking Status: Never smoker second hand exposure: No alcohol intake: current details: socially substance use type: does not use deshaun/scientology: Bahai seatbelt use: always ROS Constitutional Constitutional: Denies chills, fatigue, fever(s) or malaise Eyes Eyes: Denies blurry vision ENT HEENT: Denies headache(s) or nasal discharge Cardiovascular Cardiovascular: Denies chest pain, dyspnea on exertion or syncope Respiratory/Chest Respiratory/Chest: Denies cough, shortness of breath at rest or shortness of breath with exertion Gastrointestinal Gastrointestinal: Denies constipation, diarrhea, nausea or vomiting Genitourinary Genitourinary: Denies dysuria Neurologic Neurologic: Reports abnormal gait and focal weakness; Denies numbness or tremor(s) Psychiatric Psychiatric: Denies anxiety or depression Vital Signs Vital Signs Vital Signs: 02/15/25 01:37 02/15/25 01:56 02/15/25 02:00 Temperature 98.2 F Temperature Source Oral Pulse Rate 78 65 Respiratory Rate 14 16 Blood Pressure 170/91 H 164/97 H Blood Pressure Mean 117 119 Pulse Ox 98 98 Oxygen Delivery Method Room Air Room Air Room Air 02/15/25 02:39 02/15/25 03:00 02/15/25 03:31 Temperature Temperature Source Pulse Rate 70 67 67 Respiratory Rate 15 18 18 Blood Pressure 176/87 H 160/102 H 160/102 H Blood Pressure Mean 116 121 121 Pulse Ox 99 98 96 Oxygen Delivery Method Room Air Room Air Room Air 02/15/25 04:25 02/15/25 04:26 Temperature 98.5 F 98.5 F Temperature Source Oral Pulse Rate 66 66 Respiratory Rate 16 16 Blood Pressure 168/91 H 168/91 H Blood Pressure Mean 116 116 Pulse Ox 99 99 Oxygen Delivery Method Room Air Weight Weight: 125 lb 7.088 oz Body Mass Index (BMI) 20.8 Physical Exam Narrative General: Alert, Oriented x3, Cooperative, No apparent distress HEENT: Atraumatic, PERRLA, EOMI, Normocephalic Oral: Moist Mucosa Neck: Supple, No JVD Lungs: Diminished, Normal air movement, No rhonchi, No wheeze, No rales Cardiovascular: Regular rate, Regular Rhythm, Normal S1, Normal S2, No murmurs Abdomen: Soft, Non Tender, Non-Distended, No Hepato-splenomegaly Extremities: No edema, Capillary Refill Less than 3 Seconds Skin: No rashes, No breakdown Musculoskeletal: Minimal tenderness to palpation of her bilateral calfs and thighs Neurological: No obvious focal neurological deficits, she has generalized weakness with leadpipe rigidity Psych/Mental Status: Flat Results Lab / Micro Data 02/15/25 01:43 02/15/25 01:43 Labs: Laboratory Results - last 24 hr 02/15/25 01:43: WBC 3.8 L, RBC 3.80 L, Hgb 12.4, Hct 36.9 L, MCV 97.1, MCH 32.6 H, MCHC 33.6, RDW Std Deviation 47.3 H, RDW Coeff of Milly 13.2, Plt Count 204, MPV 10.3, Immature Gran % (Auto) 0.300, Neut % (Auto) 51.6, Lymph % (Auto) 21.8,Mclean % (Auto) 18.9 H, Eos % (Auto) 5.8 H, Baso % (Auto) 1.6 H, Absolute Neuts (auto) 2.0, Absolute Lymphs (auto) 0.83, Nucleated RBC % 0, PT 13.6, INR 1.0, APTT 31.9, Sodium 140, Potassium 3.6, Chloride 105, Carbon Dioxide 24.4, Anion Gap 10, BUN 26 H, Creatinine 0.68 L, Estim Creat Clear Calc 57.94, Est GFR (MDRD) Non-Af 93, BUN/Creatinine Ratio 38.2 H, Glucose 103 H, Calcium 9.2, Troponin T High Sens 19 H 02/15/25 03:12: Urine Color Yellow, Urine Clarity Clear, Urine pH 7.0, Ur Specific [place] 1.010, Urine Protein 15 H, Urine Glucose (UA) Normal, Urine Ketones Negative, Urine Occult Blood 25 H, UrineNitrite Negative, Urine Bilirubin Negative, Urine Urobilinogen Normal, Ur Leukocyte Esterase Negative, Urine RBC 0 SEEN, Urine WBC 0 SEEN, Ur Squamous Epith Cells 0 SEEN, Urine Bacteria RARE, Urine Mucus 0 SEEN 02/15/25 03:45: Troponin T Hi Sens 2 Hr 20 H Imaging Radiology Impression Brain CT 02/15/25 01:56 IMPRESSION: No intracranial hemorrhage, mass effect or CT evidence of large vascular territory acute infarct. Age commensurate chronic and involutional changes. Findings verbally reported by myself to Dr. Dejesus at 2:35 a.m. 02/15/2025 Reading Location: [facility] Head/Neck CTA 02/15/25 01:56 IMPRESSION: Undulating vessels. No CTA head or neck flow significant stenosis, dissection, vessel cut off or aneurysm as above. Reading Location: [facility] Assessment & Plan Assessment/Plan (1) Weakness of right upper extremity: (2) Gait instability: PLAN: Plan 1. Waxing and waning right upper extremity weakness with generalized gait instability in the setting of Parkinson's disease ? Will continue with her home Parkinson's medications including Sinemet, baclofen, ropinirole ? Continue with the stroke protocol with an MRI and echocardiogram ? Will consult neurology for input on possible stroke syndrome as well as her generalized gait issues with her Parkinson's disease ? Continue with aspirin and Lipitor 2. Anxiety/depression ? Stable ? Continue escitalopram DVT: SCDs Charges/Coding Visit Charges Inpatient E&M: 19855 Init Hosp L2 02/15/25 0620 Cosigner Signature (if applicable): CC: Dr. Eleanor Armstrong, DO; Dr. Marvin Becerril MD~ Signed [facility]05-30-2025 Radiology Diagnostic study note [facility] Imaging Services [address] [place], [place] [address] STROKE CTA Head AND Neck W/Con MR#: [id number] Acct: [id number] Name: ANTHONY CHAUDHARY Rep #: [id number] : 1955 F 69 From: Kp Mcarthur MD PCP: Dr. Eleanor Armstrong DO Status: RE G ER Study:STROKE CTA Head AND Neck W/Con Date of Exam: 02/15/25 Exam# [id number] Ordering Dr: Drew Dejesus DO PROCEDURE: STROKE CTA HEAD AND NECK W/CON 02/15/2025 REASON FOR EXAM: NEURO DEFICIT, ACUTE, STROKE SUSPECTED TECHNIQUE: CTA imaging of the head and neck from the aortic arch to the skull vertex with out contrast and with intravenous contrast. Multiplanar and multisequence images were obtained. Coronal and sagittal MIP images Visualized upper lungs appear clear. C5 through C7 spondylosis/discogenic changes. CONTRAST: 97 cc Isovue 370 IV One or more dose reduction techniques were used (e.g., Automated exposure control, adjustment of the mA and/or kV according to patient size, use of iterative reconstruction technique). RADIATION DOSE SUMMARY: CTDlvol: 16.61 mGy DLP: 577.70 mGycm COMPARISON: None available FINDINGS: Beam hardening streak artifact from contrast bolus. Thoracic aortic arch appears within limits withstandard three-vessel branching. Undulating vessels. The vertebral arteries arise as expected. The left vertebral artery is dominant. The vertebral arteries are patent throughout the cervical portions and both appear to contribute to thebasilar artery. No flow significant stenosis, vessel cut off or dissection. The right and left common carotid and internal carotid arteries are patent throughout without flow significant stenosis, dissection or vessel cut off. Mild bilateral carotid bulb calcific plaque formation without flow significant stenosing stenosis. The petrous horizontal and vertical portions and paraclinoid internal carotid arteries are patent. The anterior and posterior circulations appear intact. Right and left middle and anterior cerebral arteries are patent. The basilar artery is patent. Bilateral posterior cerebral and superior cerebellar arteries appear patent. No flow significant stenosis, vessel cut off or aneurysm. CT/STROKE CTA Head AND Neck W/Con IMPRESSION: Undulating vessels. No CTA head or neck flow significant stenosis, dissection, vessel cut off or aneurysm as above. Reading Location: [id number] CC: Dr. Eleanor Armstrong DO; Dr. Drew Dejesus DO ~ Fire Operations Forester: Signed [facility]05-30-2025 Radiology Diagnostic study note [facility] Imaging Services [address] [place] [id number] STROKE Brain/Head without Cont MR#: [id number] Acct: [id number] Name: ANTHONY CHAUDHARY Rep #: [id number] : 1955 F 69 From: Kp Mcarthur MD PCP: Dr. Eleanor Armstrong DO Status: RE G ER Study:STROKE Brain/Head without Cont Date of Exam: 02/15/25 Exam# [id number] Ordering Dr: Drew Dejesus DO PROCEDURE: STROKE BRAIN/HEAD WITHOUT CONT 02/15/2025 REASON FOR EXAM: NEURO DEFICIT, ACUTE, STROKE SUSPECTED TECHNIQUE: Head CT without intravenous contrast. Coronal and Sagittal reconstruction serieswere provided. One or more dose reduction techniques were used (e.g., Automated exposure control, adjustment of the mA and/or kV according to patient size, use of iterative reconstruction technique. RADIATION DOSE SUMMARY: CTDlvol: 44.99 mGy DLP: 829.85 mGycm COMPARISON: 12/28/2019 FINDINGS: No intracranial hemorrhage, mass effect or CT evidence of large vascular territory acute infarct. The ventricles are within limits and midline. Age commensurate chronic and involutional changes. Paranasal sinuses, mastoids and orbits appear within limits. CT/STROKE Brain/Head without Cont IMPRESSION: No intracranial hemorrhage, mass effect or CT evidence of large vascular territory acute infarct. Age commensurate chronic and involutional changes. Findings verbally reported by myself to Dr. Dejesus at 2:35 a.m. 02/15/2025 Reading Location: [id number] CC: Dr. Eleanor Armstrong, DO; Dr. Drew Dejesus, DO ~ Fire Operations Forester: Signed [facility]05-12-2025 Evaluation note* Diagnosis Onset Date Resolution Status Admit Date Restless legs syndrome acute 2024 11:27am Parkinson's disease inactive January 172024 11:27am Leg pain, bilateral acute January 182024 1:31pm Restless legs syndrome acute 2024 1:31pm Right lumbar radiculopathy acute February 14, 2025 1:31pm Parkinson's disease inactive January 182024 1:31pm Gait instability inactive January 4:28am Parkinson's disease inactive January 192024 4:28am Weakness of right upper extremity inactive February 15, 2025 4 :28am Leg pain, bilateral acute February 21, 2025 10:26am Polyneuropathy acute February 21, 2025 10:26am Encounter for procedure noneactive J 2024 10:26am Leg pain, bilateral acute March 19, 2025 11:23am Parkinson's disease inactive March 19, 2025 11:23am Leg pain, bilateral acute April 08, 2025 1:58pm Parkinson's disease inactive April 08, 2025 1:58pm [facility] Work Phone: 1(650) 750-247005-12-2025 Evaluation note* Diagnosis Onset Date Resolution Status Admit Date Restless legs syndrome acute 2024 11:27am Parkinson's disease inactive January 172024 11:27am Leg pain, bilateral acute January 182024 1:31pm Restless legs syndrome acute 2024 1:31pm Right lumbar radiculopathy acute February 14, 2025 1:31pm Parkinson's disease inactive January 182024 1:31pm Gait instability inactive January 4:28am Parkinson's disease inactive January 192024 4:28am Weakness of right upper extremity inactive February 15, 2025 4 :28am Leg pain, bilateral acute February 21, 2025 10:26am Polyneuropathy acute February 21, 2025 10:26am Encounter for procedure noneactive J une 2024 10:26am Leg pain, bilateral acute March 19, 2025 11:23am Parkinson's disease inactive March 19, 2025 11:23am Leg pain, bilateral acute April 08, 2025 1:58pm Parkinson's disease inactive April 08, 2025 1:58pm Anxiety acute May 02 1:48pm Leg pain, bilateral acute Aprus 2024 1:48pm Panic attacks acute April 1:48pm Parkinson's disease inactive 2024 1:48pm Urinary frequency acute May 04, 2025 10:38am [facility] Work Phone: 1(345) 182-924304-01-2025 Evaluation note* Diagnosis Onset Date Resolution Status Admit Date Iron deficiency acute December 10:48am Polyneuropathy acute December 18, 2024 10:48am Restless legs syndrome acute Ap 2024 10:48am Parkinson's disease inactive December 18, 2024 10:48am Restless legs syndrome acute Ma 2024 11:27am Parkinson's disease inactive January 172024 11:27am Leg pain, bilateral acute January 182024 1:31pm Restless legs syndrome acute Ma 2024 1:31pm Right lumbar radiculopathy acute February 14, 2025 1:31pm Parkinson's disease inactive January 182024 1:31pm Gait instability inactive January 4:28am Parkinson's disease inactive January 192024 4:28am Weakness of right upper extremity inactive February 15, 2025 4 :28am Leg pain, bilateral acute February 21, 2025 10:26am Polyneuropathy acute February 21, 2025 10:26am Encounter for procedure noneactive J une 2024 10:26am Leg pain, bilateral acute March 19, 2025 11:23am Parkinson's disease inactive March 19, 2025 11:23am [facility] Work Phone: 1(958) 258-770703-10-2025 Evaluation note* Diagnosis Onset Date Resolution Status Admit Date Parkinson's disease chronic November 26, 2024 1:52pm Iron deficiency acute December 10:48am Polyneuropathy acute December 18, 2024 10:48am Restless legs syndrome acute Ap ril 2024 10:48am Parkinson's disease chronic December 18, 2024 10:48am Restless legs syndrome acute Ma y 2024 11:27am Parkinson's disease chronic January 172024 11:27am Right lumbar radiculopathy acute February 14, 2025 1:31pm [facility] Work Phone: 1(693) 788-429903-10-2025 Evaluation note* Diagnosis Onset Date Resolution Status Admit Date Parkinson's disease chronic November 26, 2024 1:52pm Iron deficiency acute December 10:48am Polyneuropathy acute December 18, 2024 10:48am Restless legs syndrome acute Ap ril 2024 10:48am Parkinson's disease chronic December 18, 2024 10:48am Restless legs syndrome acute Ma y 2024 11:27am Parkinson's disease chronic January 172024 11:27am Right lumbar radiculopathy acute February 14, 2025 1:31pm Gait instability acute January 4:28am Weakness of right upper extremity acute February 15, 2025 4 :28am Parkinson's disease chronic January 192024 4:28am [facility] Work Phone: 1(643) 937-669403-10-2025 Evaluation note* Diagnosis Onset Date Resolution Status Admit Date Parkinson's disease chronic November 26, 2024 1:52pm Iron deficiency acute December 10:48am Polyneuropathy acute December 18, 2024 10:48am Restless legs syndrome acute Ap ril 2024 10:48am Parkinson's disease chronic December 18, 2024 10:48am Restless legs syndrome acute Ma y 2024 11:27am Parkinson's disease chronic January 172024 11:27am Leg pain, bilateral acute May 2 9th, 2025 1:31pm Restless legs syndrome acute Ma y 2024 1:31pm Right lumbar radiculopathy acute February 14, 2025 1:31pm Parkinson's disease chronic January 182024 1:31pm Gait instability acute January 4:28am Weakness of right upper extremity acute February 15, 2025 4 :28am Parkinson's disease chronic January 192024 4:28am [facility] Work Phone: 1(390) 490-438103-10-2025 Evaluation note* Diagnosis Onset Date Resolution Status Admit Date Parkinson's disease chronic November 26, 2024 1:52pm Iron deficiency acute December 10:48am Polyneuropathy acute December 18, 2024 10:48am Restless legs syndrome acute Ap 2024 10:48am Parkinson's disease chronic December 18, 2024 10:48am Restless legs syndrome acute Ma y 2024 11:27am Parkinson's disease chronic January 172024 11:27am Leg pain, bilateral acute January 182024 1:31pm Restless legs syndrome acute Ma y 2024 1:31pm Right lumbar radiculopathy acute February 14, 2025 1:31pm Parkinson's disease chronic January 182024 1:31pm Gait instability acute January 4:28am Weakness of right upper extremity acute February 15, 2025 4 :28am Parkinson's disease chronic January 192024 4:28am Encounter for procedure noneactive J [facility] 2024 10:26am [facility] Work Phone: 1([phone]) 191-156903-10-2025 Evaluation note* Diagnosis Onset Date Resolution Status Admit Date Parkinson's disease inactive November 26, 2024 1:52pm Iron deficiency acute December 10:48am Polyneuropathy acute December 18, 2024 10:48am Restless legs syndrome acute Ap 2024 10:48am Parkinson's disease inactive December 18, 2024 10:48am Restless legs syndrome acute Ma y 2024 11:27am Parkinson's disease inactive January 172024 11:27am Leg pain, bilateral acute January 182024 1:31pm Restless legs syndrome acute Ma 2024 1:31pm Right lumbar radiculopathy acute February 14, 2025 1:31pm Parkinson's disease inactive January 182024 1:31pm Gait instability inactive January 4:28am Parkinson's disease inactive January 192024 4:28am Weakness of right upper extremity inactive February 15, 2025 4 :28am Leg pain, bilateral acute February 21, 2025 10:26am Polyneuropathy acute February 21, 2025 10:26am Encounter for procedure noneactive J 2024 10:26am [facility] Work Phone: 1(867) 807-610412-30-2024 Evaluation note* Diagnosis Onset Date Resolution Status Admit Date Parkinson's disease chronic Decem 2023 11:23am Parkinson's disease chronic November 26, 2024 1:52pm Iron deficiency acute December 10:48am Polyneuropathy acute December 18, 2024 10:48am Restless legs syndrome acute Ap 2024 10:48am Parkinson's disease chronic December 18, 2024 10:48am [facility] Work Phone: 1(212) 477-203306-13-2022 Instructions* Name Dates Details Patient Instructions Indication:BMI 20.0-20.9, adult Start:01-Mar-2022 Instruction Type:Provider Instructions for Treatment How to Access Health Informa tion Online using Patient Portal and [employer]rd [employer] Apps Indication:BMI 20.0-20.9, adult Start:01-Mar-2022 Instruction Type:Patient Education Patient Instructions Indication:BMI less than 19,adult Start:20-Nov-2021 Instruction Type:Provider Instructions for Treatment How to Access Health Informa tion Online using Patient Portal and [employer]rd [employer] Apps Indication:BMI less than 19,adult Start:20-Nov-2021 Instruction Type:Patient Education Patient Instructions Indication:BMI 20.0-20.9, adult Start:28-Oct-2021 Instruction Type:Provider Instructions for Treatment How to Access Health Informa tion Online using Patient Portal and [employer]rd [employer] Apps Indication:BMI 20.0-20.9, adult Start:28-Oct-2021 Instruction Type:Patient Education Patient Instructions Indication:BMI 20.0-20.9, adult Start:24-Sep-2021 Instruction Type:Provider Instructions for Treatment How to Access Health Informa tion Online using Patient Portal and [employer]rd [employer] Apps Indication:BMI 20.0-20.9, adult Start:24-Sep-2021 Instruction Type:Patient Education Patient Instructions Indication:BMI less than 19,adult Start:16-Jul-2021 Instruction Type:Provider Instructions for Treatment How to Access Health Informa tion Online using Patient Portal and [employer]rd [employer] Apps Indication:BMI less than 19,adult Start:16-Jul-2021 Instruction Type:Patient Education Patient Instructions Indication:Non-smoker Start:19-Jun-2021 Instruction Type:Provider Instructions for Treatment How to Access Health Informa tion Online using Patient Portal and [employer] Apps Indication:Non-smoker Start:19-Jun-2021 Instruction Type:Patient Education Patient Instructions Indication:Non-smoker Start:25-Feb-2021 Instruction Type:Provider Instructions for Treatment How to Access Health Informa tion Online using Patient Portal and [employer] Apps Indication:Non-smoker Start:25-Feb-2021 Instruction Type:Patient Education Patient Instructions Indication:Non-smoker Start:18-Feb-2021 Instruction Type:Provider Instructions for Treatment How to Access Health Informa tion Online using Patient Portal and [employer]rd [employer] Apps Indication:Non-smoker Start:18-Feb-2021 Instruction Type:Patient Education How to access health informa tion online Indication:Non-smoker Start:13-Aug-2020 Instruction Type:Patient Education How to access health informa tion online - Detail Indication:Non-smoker Start:13-Aug-2020 Instruction Type:Patient Education Patient Instructions Indication:Non-smoker Start:13-Aug-2020 Instruction Type:Provider Instructions for Treatment How to access health informa tion online Indication:Non-smoker Start:29-Sep-2016 Instruction Type:Patient Education How to access health informa tion online - Detail Indication:Non-smoker Start:29-Sep-2016 Instruction Type:Patient Education Patient Instructions Indication:Non-smoker Start:29-Sep-2016 Instruction Type:Provider Instructions for Treatment Patient Instructions Indication:Irregular heartbeat Start:30-Jul-2014 Instruction Type:Provider Instructions for Treatment How to access health informa tion online Indication:Irregular heartbeat Start:28-Jun-2014 Instruction Type:Patient Education How to access health informa tion online - Detail Indication:Irregular heartbeat Start:28-Jun-2014 Instruction Type:Patient Education Patient Instructions Indication:Irregular heartbeat Start:28-Jun-2014 Instruction Type:Provider Instructions for Treatment [facility] Work Phone: Evaluation note* Diagnosis Onset Date Resolution Status Deep peroneal neuropathy of right lower extremity 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 Work Phone: Instructions* Name Dates Details Patient Instructions Indication:Non-smoker Start:18-Feb-2021 Instruction Type:Provider Instructions for Treatment How to Access Health Informa tion Online using Patient Portal and [employer] Apps Indication:Non-smoker Start:18-Feb-2021 Instruction Type:Patient Education How to access health informa tion online Indication:Non-smoker Start:13-Aug-2020 Instruction Type:Patient Education How to access health informa tion online - Detail Indication:Non-smoker Start:13-Aug-2020 Instruction Type:Patient Education Patient Instructions Indication:Non-smoker Start:13-Aug-2020 Instruction Type:Provider Instructions for Treatment How to access health informa tion online Indication:Non-smoker Start:29-Sep-2016 Instruction Type:Patient Education How to access health informa tion online - Detail Indication:Non-smoker Start:29-Sep-2016 Instruction Type:Patient Education Patient Instructions Indication:Non-smoker Start:29-Sep-2016 Instruction Type:Provider Instructions for Treatment Patient Instructions Indication:Irregular heartbeat Start:30-Jul-2014 Instruction Type:Provider Instructions for Treatment How to access health informa tion online Indication:Irregular heartbeat Start:28-Jun-2014 Instruction Type:Patient Education How to access health informa tion online - Detail Indication:Irregular heartbeat Start:28-Jun-2014 Instruction Type:Patient Education Patient Instructions Indication:Irregular heartbeat Start:28-Jun-2014 Instruction Type:Provider Instructions for Treatment [facility]; [facility] Work Phone: instructions* Name Dates Details Patient Instructions Indication:Non-smoker Start:18-Feb-2021 Instruction Type:Provider Instructions for Treatment How to Access Health Informa tion Online using Patient Portal and [employer] Apps Indication:Non-smoker Start:18-Feb-2021 Instruction Type:Patient Education How to access health informa tion online Indication:Non-smoker Start:13-Aug-2020 Instruction Type:Patient Education How to access health informa tion online - Detail Indication:Non-smoker Start:13-Aug-2020 Instruction Type:Patient Education Patient Instructions Indication:Non-smoker Start:13-Aug-2020 Instruction Type:Provider Instructions for Treatment How to access health informa tion online Indication:Non-smoker Start:29-Sep-2016 Instruction Type:Patient Education How to access health informa tion online - Detail Indication:Non-smoker Start:29-Sep-2016 Instruction Type:Patient Education Patient Instructions Indication:Non-smoker Start:29-Sep-2016 Instruction Type:Provider Instructions for Treatment Patient Instructions Indication:Irregular heartbeat Start:30-Jul-2014 Instruction Type:Provider Instructions for Treatment How to access health informa tion online Indication:Irregular heartbeat Start:28-Jun-2014 Instruction Type:Patient Education How to access health informa tion online - Detail Indication:Irregular heartbeat Start:28-Jun-2014 Instruction Type:Patient Education Patient Instructions Indication:Irregular heartbeat Start:28-Jun-2014 Instruction Type:Provider Instructions for Treatment [facility]; [facility] Work Phone: Instructions* Name Dates Details Patient Instructions Indication:Non-smoker Start:25-Feb-2021 Instruction Type:Provider Instructions for Treatment How to Access Health Informa tion Online using Patient Portal and [employer] Apps Indication:Non-smoker Start:25-Feb-2021 Instruction Type:Patient Education Patient Instructions Indication:Non-smoker Start:18-Feb-2021 Instruction Type:Provider Instructions for Treatment How to Access Health Informa tion Online using Patient Portal and [employer] Apps Indication:Non-smoker Start:18-Feb-2021 Instruction Type:Patient Education How to access health informa tion online Indication:Non-smoker Start:13-Aug-2020 Instruction Type:Patient Education How to access health informa tion online - Detail Indication:Non-smoker Start:13-Aug-2020 Instruction Type:Patient Education Patient Instructions Indication:Non-smoker Start:13-Aug-2020 Instruction Type:Provider Instructions for Treatment How to access health informa tion online Indication:Non-smoker Start:29-Sep-2016 Instruction Type:Patient Education How to access health informa tion online - Detail Indication:Non-smoker Start:29-Sep-2016 Instruction Type:Patient Education Patient Instructions Indication:Non-smoker Start:29-Sep-2016 Instruction Type:Provider Instructions for Treatment Patient Instructions Indication:Irregular heartbeat Start:30-Jul-2014 Instruction Type:Provider Instructions for Treatment How to access health informa tion online Indication:Irregular heartbeat Start:28-Jun-2014 Instruction Type:Patient Education How to access health informa tion online - Detail Indication:Irregular heartbeat Start:28-Jun-2014 Instruction Type:Patient Education Patient Instructions Indication:Irregular heartbeat Start:28-Jun-2014 Instruction Type:Provider Instructions for Treatment [facility]; [facility] Work Phone: Instructions* Name Dates Details Patient Instructions Indication:Non-smoker Start:25-Feb-2021 Instruction Type:Provider Instructions for Treatment How to Access Health Informa tion Online using Patient Portal and [employer] Apps Indication:Non-smoker Start:25-Feb-2021 Instruction Type:Patient Education Patient Instructions Indication:Non-smoker Start:18-Feb-2021 Instruction Type:Provider Instructions for Treatment How to Access Health Informa tion Online using Patient Portal and [employer] Apps Indication:Non-smoker Start:18-Feb-2021 Instruction Type:Patient Education How to access health informa tion online Indication:Non-smoker Start:13-Aug-2020 Instruction Type:Patient Education How to access health informa tion online - Detail Indication:Non-smoker Start:13-Aug-2020 Instruction Type:Patient Education Patient Instructions Indication:Non-smoker Start:13-Aug-2020 Instruction Type:Provider Instructions for Treatment How to access health informa tion online Indication:Non-smoker Start:29-Sep-2016 Instruction Type:Patient Education How to access health informa tion online - Detail Indication:Non-smoker Start:29-Sep-2016 Instruction Type:Patient Education Patient Instructions Indication:Non-smoker Start:29-Sep-2016 Instruction Type:Provider Instructions for Treatment Patient Instructions Indication:Irregular heartbeat Start:30-Jul-2014 Instruction Type:Provider Instructions for Treatment How to access health informa tion online Indication:Irregular heartbeat Start:28-Jun-2014 Instruction Type:Patient Education How to access health informa tion online - Detail Indication:Irregular heartbeat Start:28-Jun-2014 Instruction Type:Patient Education Patient Instructions Indication:Irregular heartbeat Start:28-Jun-2014 Instruction Type:Provider Instructions for Treatment [facility]; [facility] Work Phone: Instructions* Name Dates Details Patient Instructions Indication:BMI less than 19,adult Start:16-Jul-2021 Instruction Type:Provider Instructions for Treatment How to Access Health Informa tion Online using Patient Portal and [employer] Apps Indication:BMI less than 19,adult Start:16-Jul-2021 Instruction Type:Patient Education Patient Instructions Indication:Non-smoker Start:19-Jun-2021 Instruction Type:Provider Instructions for Treatment How to Access Health Informa tion Online using Patient Portal and [employer] Apps Indication:Non-smoker Start:19-Jun-2021 Instruction Type:Patient Education Patient Instructions Indication:Non-smoker Start:25-Feb-2021 Instruction Type:Provider Instructions for Treatment How to Access Health Informa tion Online using Patient Portal and [employer] Apps Indication:Non-smoker Start:25-Feb-2021 Instruction Type:Patient Education Patient Instructions Indication:Non-smoker Start:18-Feb-2021 Instruction Type:Provider Instructions for Treatment How to Access Health Informa tion Online using Patient Portal and [employer] Apps Indication:Non-smoker Start:18-Feb-2021 Instruction Type:Patient Education How to access health informa tion online Indication:Non-smoker Start:13-Aug-2020 Instruction Type:Patient Education How to access health informa tion online - Detail Indication:Non-smoker Start:13-Aug-2020 Instruction Type:Patient Education Patient Instructions Indication:Non-smoker Start:13-Aug-2020 Instruction Type:Provider Instructions for Treatment How to access health informa tion online Indication:Non-smoker Start:29-Sep-2016 Instruction Type:Patient Education How to access health informa tion online - Detail Indication:Non-smoker Start:29-Sep-2016 Instruction Type:Patient Education Patient Instructions Indication:Non-smoker Start:29-Sep-2016 Instruction Type:Provider Instructions for Treatment Patient Instructions Indication:Irregular heartbeat Start:30-Jul-2014 Instruction Type:Provider Instructions for Treatment How to access health informa tion online Indication:Irregular heartbeat Start:28-Jun-2014 Instruction Type:Patient Education How to access health informa tion online - Detail Indication:Irregular heartbeat Start:28-Jun-2014 Instruction Type:Patient Education Patient Instructions Indication:Irregular heartbeat Start:28-Jun-2014 Instruction Type:Provider Instructions for Treatment [facility]; [facility] Work Phone: Instructions* Name Dates Details Patient Instructions Indication:BMI 20.0-20.9, adult Start:24-Sep-2021 Instruction Type:Provider Instructions for Treatment How to Access Health Informa tion Online using Patient Portal and [employer] Apps Indication:BMI 20.0-20.9, adult Start:24-Sep-2021 Instruction Type:Patient Education Patient Instructions Indication:BMI less than 19,adult Start:16-Jul-2021 Instruction Type:Provider Instructions for Treatment How to Access Health Informa tion Online using Patient Portal and [employer] Apps Indication:BMI less than 19,adult Start:16-Jul-2021 Instruction Type:Patient Education Patient Instructions Indication:Non-smoker Start:19-Jun-2021 Instruction Type:Provider Instructions for Treatment How to Access Health Informa tion Online using Patient Portal and [employer] Apps Indication:Non-smoker Start:19-Jun-2021 Instruction Type:Patient Education Patient Instructions Indication:Non-smoker Start:25-Feb-2021 Instruction Type:Provider Instructions for Treatment How to Access Health Informa tion Online using Patient Portal and [employer] Apps Indication:Non-smoker Start:25-Feb-2021 Instruction Type:Patient Education Patient Instructions Indication:Non-smoker Start:18-Feb-2021 Instruction Type:Provider Instructions for Treatment How to Access Health Informa tion Online using Patient Portal and [employer] Apps Indication:Non-smoker Start:18-Feb-2021 Instruction Type:Patient Education How to access health informa tion online Indication:Non-smoker Start:13-Aug-2020 Instruction Type:Patient Education How to access health informa tion online - Detail Indication:Non-smoker Start:13-Aug-2020 Instruction Type:Patient Education Patient Instructions Indication:Non-smoker Start:13-Aug-2020 Instruction Type:Provider Instructions for Treatment How to access health informa tion online Indication:Non-smoker Start:29-Sep-2016 Instruction Type:Patient Education How to access health informa tion online - Detail Indication:Non-smoker Start:29-Sep-2016 Instruction Type:Patient Education Patient Instructions Indication:Non-smoker Start:29-Sep-2016 Instruction Type:Provider Instructions for Treatment Patient Instructions Indication:Irregular heartbeat Start:30-Jul-2014 Instruction Type:Provider Instructions for Treatment How to access health informa tion online Indication:Irregular heartbeat Start:28-Jun-2014 Instruction Type:Patient Education How to access health informa tion online - Detail Indication:Irregular heartbeat Start:28-Jun-2014 Instruction Type:Patient Education Patient Instructions Indication:Irregular heartbeat Start:28-Jun-2014 Instruction Type:Provider Instructions for Treatment [facility]; [facility] Work Phone: Instructions* Name Dates Details Patient Instructions Indication:BMI 20.0-20.9, adult Start:24-Sep-2021 Instruction Type:Provider Instructions for Treatment How to Access Health Informa tion Online using Patient Portal and [employer] Apps Indication:BMI 20.0-20.9, adult Start:24-Sep-2021 Instruction Type:Patient Education Patient Instructions Indication:BMI less than 19,adult Start:16-Jul-2021 Instruction Type:Provider Instructions for Treatment How to Access Health Informa tion Online using Patient Portal and [employer] Apps Indication:BMI less than 19,adult Start:16-Jul-2021 Instruction Type:Patient Education Patient Instructions Indication:Non-smoker Start:19-Jun-2021 Instruction Type:Provider Instructions for Treatment How to Access Health Informa tion Online using Patient Portal and [employer] Apps Indication:Non-smoker Start:19-Jun-2021 Instruction Type:Patient Education Patient Instructions Indication:Non-smoker Start:25-Feb-2021 Instruction Type:Provider Instructions for Treatment How to Access Health Informa tion Online using Patient Portal and [employer] Apps Indication:Non-smoker Start:25-Feb-2021 Instruction Type:Patient Education Patient Instructions Indication:Non-smoker Start:18-Feb-2021 Instruction Type:Provider Instructions for Treatment How to Access Health Informa tion Online using Patient Portal and [employer] Apps Indication:Non-smoker Start:18-Feb-2021 Instruction Type:Patient Education How to access health informa tion online Indication:Non-smoker Start:13-Aug-2020 Instruction Type:Patient Education How to access health informa tion online - Detail Indication:Non-smoker Start:13-Aug-2020 Instruction Type:Patient Education Patient Instructions Indication:Non-smoker Start:13-Aug-2020 Instruction Type:Provider Instructions for Treatment How to access health informa tion online Indication:Non-smoker Start:29-Sep-2016 Instruction Type:Patient Education How to access health informa tion online - Detail Indication:Non-smoker Start:29-Sep-2016 Instruction Type:Patient Education Patient Instructions Indication:Non-smoker Start:29-Sep-2016 Instruction Type:Provider Instructions for Treatment Patient Instructions Indication:Irregular heartbeat Start:30-Jul-2014 Instruction Type:Provider Instructions for Treatment How to access health informa tion online Indication:Irregular heartbeat Start:28-Jun-2014 Instruction Type:Patient Education How to access health informa tion online - Detail Indication:Irregular heartbeat Start:28-Jun-2014 Instruction Type:Patient Education Patient Instructions Indication:Irregular heartbeat Start:28-Jun-2014 Instruction Type:Provider Instructions for Treatment [facility]; [facility] Work Phone: Instructions* Name Dates Details Patient Instructions Indication:BMI 20.0-20.9, adult Start:28-Oct-2021 Instruction Type:Provider Instructions for Treatment How to Access Health Informa tion Online using Patient Portal and [employer] Apps Indication:BMI 20.0-20.9, adult Start:28-Oct-2021 Instruction Type:Patient Education Patient Instructions Indication:BMI 20.0-20.9, adult Start:24-Sep-2021 Instruction Type:Provider Instructions for Treatment How to Access Health Informa tion Online using Patient Portal and [employer] Apps Indication:BMI 20.0-20.9, adult Start:24-Sep-2021 Instruction Type:Patient Education Patient Instructions Indication:BMI less than 19,adult Start:16-Jul-2021 Instruction Type:Provider Instructions for Treatment How to Access Health Informa tion Online using Patient Portal and [employer] Apps Indication:BMI less than 19,adult Start:16-Jul-2021 Instruction Type:Patient Education Patient Instructions Indication:Non-smoker Start:19-Jun-2021 Instruction Type:Provider Instructions for Treatment How to Access Health Informa tion Online using Patient Portal and [employer] Apps Indication:Non-smoker Start:19-Jun-2021 Instruction Type:Patient Education Patient Instructions Indication:Non-smoker Start:25-Feb-2021 Instruction Type:Provider Instructions for Treatment How to Access Health Informa tion Online using Patient Portal and [employer] Apps Indication:Non-smoker Start:25-Feb-2021 Instruction Type:Patient Education Patient Instructions Indication:Non-smoker Start:18-Feb-2021 Instruction Type:Provider Instructions for Treatment How to Access Health Informa tion Online using Patient Portal and [employer] Apps Indication:Non-smoker Start:18-Feb-2021 Instruction Type:Patient Education How to access health informa tion online Indication:Non-smoker Start:13-Aug-2020 Instruction Type:Patient Education How to access health informa tion online - Detail Indication:Non-smoker Start:13-Aug-2020 Instruction Type:Patient Education Patient Instructions Indication:Non-smoker Start:13-Aug-2020 Instruction Type:Provider Instructions for Treatment How to access health informa tion online Indication:Non-smoker Start:29-Sep-2016 Instruction Type:Patient Education How to access health informa tion online - Detail Indication:Non-smoker Start:29-Sep-2016 Instruction Type:Patient Education Patient Instructions Indication:Non-smoker Start:29-Sep-2016 Instruction Type:Provider Instructions for Treatment Patient Instructions Indication:Irregular heartbeat Start:30-Jul-2014 Instruction Type:Provider Instructions for Treatment How to access health informa tion online Indication:Irregular heartbeat Start:28-Jun-2014 Instruction Type:Patient Education How to access health informa tion online - Detail Indication:Irregular heartbeat Start:28-Jun-2014 Instruction Type:Patient Education Patient Instructions Indication:Irregular heartbeat Start:28-Jun-2014 Instruction Type:Provider Instructions for Treatment [facility]; [facility] Work Phone: Instructions* Name Dates Details Patient Instructions Indication:BMI 20.0-20.9, adult Start:28-Oct-2021 Instruction Type:Provider Instructions for Treatment How to Access Health Informa tion Online using Patient Portal and [employer] Apps Indication:BMI 20.0-20.9, adult Start:28-Oct-2021 Instruction Type:Patient Education Patient Instructions Indication:BMI 20.0-20.9, adult Start:24-Sep-2021 Instruction Type:Provider Instructions for Treatment How to Access Health Informa tion Online using Patient Portal and [employer] Apps Indication:BMI 20.0-20.9, adult Start:24-Sep-2021 Instruction Type:Patient Education Patient Instructions Indication:BMI less than 19,adult Start:16-Jul-2021 Instruction Type:Provider Instructions for Treatment How to Access Health Informa tion Online using Patient Portal and [employer] Apps Indication:BMI less than 19,adult Start:16-Jul-2021 Instruction Type:Patient Education Patient Instructions Indication:Non-smoker Start:19-Jun-2021 Instruction Type:Provider Instructions for Treatment How to Access Health Informa tion Online using Patient Portal and [employer] Apps Indication:Non-smoker Start:19-Jun-2021 Instruction Type:Patient Education Patient Instructions Indication:Non-smoker Start:25-Feb-2021 Instruction Type:Provider Instructions for Treatment How to Access Health Informa tion Online using Patient Portal and [employer] Apps Indication:Non-smoker Start:25-Feb-2021 Instruction Type:Patient Education Patient Instructions Indication:Non-smoker Start:18-Feb-2021 Instruction Type:Provider Instructions for Treatment How to Access Health Informa tion Online using Patient Portal and [employer] Apps Indication:Non-smoker Start:18-Feb-2021 Instruction Type:Patient Education How to access health informa tion online Indication:Non-smoker Start:13-Aug-2020 Instruction Type:Patient Education How to access health informa tion online - Detail Indication:Non-smoker Start:13-Aug-2020 Instruction Type:Patient Education Patient Instructions Indication:Non-smoker Start:13-Aug-2020 Instruction Type:Provider Instructions for Treatment How to access health informa tion online Indication:Non-smoker Start:29-Sep-2016 Instruction Type:Patient Education How to access health informa tion online - Detail Indication:Non-smoker Start:29-Sep-2016 Instruction Type:Patient Education Patient Instructions Indication:Non-smoker Start:29-Sep-2016 Instruction Type:Provider Instructions for Treatment Patient Instructions Indication:Irregular heartbeat Start:30-Jul-2014 Instruction Type:Provider Instructions for Treatment How to access health informa tion online Indication:Irregular heartbeat Start:28-Jun-2014 Instruction Type:Patient Education How to access health informa tion online - Detail Indication:Irregular heartbeat Start:28-Jun-2014 Instruction Type:Patient Education Patient Instructions Indication:Irregular heartbeat Start:28-Jun-2014 Instruction Type:Provider Instructions for Treatment [facility]; [facility] Work Phone: Instructions* Name Dates Details Patient Instructions Indication:BMI less than 19,adult Start:20-Nov-2021 Instruction Type:Provider Instructions for Treatment How to Access Health Informa tion Online using Patient Portal and [employer] Apps Indication:BMI less than 19,adult Start:20-Nov-2021 Instruction Type:Patient Education Patient Instructions Indication:BMI 20.0-20.9, adult Start:28-Oct-2021 Instruction Type:Provider Instructions for Treatment How to Access Health Informa tion Online using Patient Portal and [employer] Apps Indication:BMI 20.0-20.9, adult Start:28-Oct-2021 Instruction Type:Patient Education Patient Instructions Indication:BMI 20.0-20.9, adult Start:24-Sep-2021 Instruction Type:Provider Instructions for Treatment How to Access Health Informa tion Online using Patient Portal and [employer] Apps Indication:BMI 20.0-20.9, adult Start:24-Sep-2021 Instruction Type:Patient Education Patient Instructions Indication:BMI less than 19,adult Start:16-Jul-2021 Instruction Type:Provider Instructions for Treatment How to Access Health Informa tion Online using Patient Portal and [employer] Apps Indication:BMI less than 19,adult Start:16-Jul-2021 Instruction Type:Patient Education Patient Instructions Indication:Non-smoker Start:19-Jun-2021 Instruction Type:Provider Instructions for Treatment How to Access Health Informa tion Online using Patient Portal and [employer] Apps Indication:Non-smoker Start:19-Jun-2021 Instruction Type:Patient Education Patient Instructions Indication:Non-smoker Start:25-Feb-2021 Instruction Type:Provider Instructions for Treatment How to Access Health Informa tion Online using Patient Portal and [employer] Apps Indication:Non-smoker Start:25-Feb-2021 Instruction Type:Patient Education Patient Instructions Indication:Non-smoker Start:18-Feb-2021 Instruction Type:Provider Instructions for Treatment How to Access Health Informa tion Online using Patient Portal and [employer] Apps Indication:Non-smoker Start:18-Feb-2021 Instruction Type:Patient Education How to access health informa tion online Indication:Non-smoker Start:13-Aug-2020 Instruction Type:Patient Education How to access health informa tion online - Detail Indication:Non-smoker Start:13-Aug-2020 Instruction Type:Patient Education Patient Instructions Indication:Non-smoker Start:13-Aug-2020 Instruction Type:Provider Instructions for Treatment How to access health informa tion online Indication:Non-smoker Start:29-Sep-2016 Instruction Type:Patient Education How to access health informa tion online - Detail Indication:Non-smoker Start:29-Sep-2016 Instruction Type:Patient Education Patient Instructions Indication:Non-smoker Start:29-Sep-2016 Instruction Type:Provider Instructions for Treatment Patient Instructions Indication:Irregular heartbeat Start:30-Jul-2014 Instruction Type:Provider Instructions for Treatment How to access health informa tion online Indication:Irregular heartbeat Start:28-Jun-2014 Instruction Type:Patient Education How to access health informa tion online - Detail Indication:Irregular heartbeat Start:28-Jun-2014 Instruction Type:Patient Education Patient Instructions Indication:Irregular heartbeat Start:28-Jun-2014 Instruction Type:Provider Instructions for Treatment [facility] [facility]; [facility] Work Phone: Instructions* Name Dates Details Patient Instructions Indication:BMI less than 19,adult Start:20-Nov-2021 Instruction Type:Provider Instructions for Treatment How to Access Health Informa tion Online using Patient Portal and [employer]rd [employer] Apps Indication:BMI less than 19,adult Start:20-Nov-2021 Instruction Type:Patient Education Patient Instructions Indication:BMI 20.0-20.9, adult Start:28-Oct-2021 Instruction Type:Provider Instructions for Treatment How to Access Health Informa tion Online using Patient Portal and [employer]rd [employer] Apps Indication:BMI 20.0-20.9, adult Start:28-Oct-2021 Instruction Type:Patient Education Patient Instructions Indication:BMI 20.0-20.9, adult Start:24-Sep-2021 Instruction Type:Provider Instructions for Treatment How to Access Health Informa tion Online using Patient Portal and [employer]rd [employer] Apps Indication:BMI 20.0-20.9, adult Start:24-Sep-2021 Instruction Type:Patient Education Patient Instructions Indication:BMI less than 19,adult Start:16-Jul-2021 Instruction Type:Provider Instructions for Treatment How to Access Health Informa tion Online using Patient Portal and [employer]rd [employer] Apps Indication:BMI less than 19,adult Start:16-Jul-2021 Instruction Type:Patient Education Patient Instructions Indication:Non-smoker Start:19-Jun-2021 Instruction Type:Provider Instructions for Treatment How to Access Health Informa tion Online using Patient Portal and [employer]rd [employer] Apps Indication:Non-smoker Start:19-Jun-2021 Instruction Type:Patient Education Patient Instructions Indication:Non-smoker Start:25-Feb-2021 Instruction Type:Provider Instructions for Treatment How to Access Health Informa tion Online using Patient Portal and [employer]rd [employer] Apps Indication:Non-smoker Start:25-Feb-2021 Instruction Type:Patient Education Patient Instructions Indication:Non-smoker Start:18-Feb-2021 Instruction Type:Provider Instructions for Treatment How to Access Health Informa tion Online using Patient Portal and [employer]rd [employer] Apps Indication:Non-smoker Start:18-Feb-2021 Instruction Type:Patient Education How to access health informa tion online Indication:Non-smoker Start:13-Aug-2020 Instruction Type:Patient Education How to access health informa tion online - Detail Indication:Non-smoker Start:13-Aug-2020 Instruction Type:Patient Education Patient Instructions Indication:Non-smoker Start:13-Aug-2020 Instruction Type:Provider Instructions for Treatment How to access health informa tion online Indication:Non-smoker Start:29-Sep-2016 Instruction Type:Patient Education How to access health informa tion online - Detail Indication:Non-smoker Start:29-Sep-2016 Instruction Type:Patient Education Patient Instructions Indication:Non-smoker Start:29-Sep-2016 Instruction Type:Provider Instructions for Treatment Patient Instructions Indication:Irregular heartbeat Start:30-Jul-2014 Instruction Type:Provider Instructions for Treatment How to access health informa tion online Indication:Irregular heartbeat Start:28-Jun-2014 Instruction Type:Patient Education How to access health informa tion online - Detail Indication:Irregular heartbeat Start:28-Jun-2014 Instruction Type:Patient Education Patient Instructions Indication:Irregular heartbeat Start:28-Jun-2014 Instruction Type:Provider Instructions for Treatment [facility]; [facility] Work Phone: Instructions* Name Dates Details Patient Instructions Indication:BMI less than 19,adult Start:20-Nov-2021 Instruction Type:Provider Instructions for Treatment How to Access Health Informa tion Online using Patient Portal and [employer]rd [employer] Apps Indication:BMI less than 19,adult Start:20-Nov-2021 Instruction Type:Patient Education Patient Instructions Indication:BMI 20.0-20.9, adult Start:28-Oct-2021 Instruction Type:Provider Instructions for Treatment How to Access Health Informa tion Online using Patient Portal and [employer]rd [employer] Apps Indication:BMI 20.0-20.9, adult Start:28-Oct-2021 Instruction Type:Patient Education Patient Instructions Indication:BMI 20.0-20.9, adult Start:24-Sep-2021 Instruction Type:Provider Instructions for Treatment How to Access Health Informa tion Online using Patient Portal and [employer]rd [employer] Apps Indication:BMI 20.0-20.9, adult Start:24-Sep-2021 Instruction Type:Patient Education Patient Instructions Indication:BMI less than 19,adult Start:16-Jul-2021 Instruction Type:Provider Instructions for Treatment How to Access Health Informa tion Online using Patient Portal and [employer]rd [employer] Apps Indication:BMI less than 19,adult Start:16-Jul-2021 Instruction Type:Patient Education Patient Instructions Indication:Non-smoker Start:19-Jun-2021 Instruction Type:Provider Instructions for Treatment How to Access Health Informa tion Online using Patient Portal and [employer]rd [employer] Apps Indication:Non-smoker Start:19-Jun-2021 Instruction Type:Patient Education Patient Instructions Indication:Non-smoker Start:25-Feb-2021 Instruction Type:Provider Instructions for Treatment How to Access Health Informa tion Online using Patient Portal and [employer]rd [employer] Apps Indication:Non-smoker Start:25-Feb-2021 Instruction Type:Patient Education Patient Instructions Indication:Non-smoker Start:18-Feb-2021 Instruction Type:Provider Instructions for Treatment How to Access Health Informa tion Online using Patient Portal and [employer] Apps Indication:Non-smoker Start:18-Feb-2021 Instruction Type:Patient Education How to access health informa tion online Indication:Non-smoker Start:13-Aug-2020 Instruction Type:Patient Education How to access health informa tion online - Detail Indication:Non-smoker Start:13-Aug-2020 Instruction Type:Patient Education Patient Instructions Indication:Non-smoker Start:13-Aug-2020 Instruction Type:Provider Instructions for Treatment How to access health informa tion online Indication:Non-smoker Start:29-Sep-2016 Instruction Type:Patient Education How to access health informa tion online - Detail Indication:Non-smoker Start:29-Sep-2016 Instruction Type:Patient Education Patient Instructions Indication:Non-smoker Start:29-Sep-2016 Instruction Type:Provider Instructions for Treatment Patient Instructions Indication:Irregular heartbeat Start:30-Jul-2014 Instruction Type:Provider Instructions for Treatment How to access health informa tion online Indication:Irregular heartbeat Start:28-Jun-2014 Instruction Type:Patient Education How to access health informa tion online - Detail Indication:Irregular heartbeat Start:28-Jun-2014 Instruction Type:Patient Education Patient Instructions Indication:Irregular heartbeat Start:28-Jun-2014 Instruction Type:Provider Instructions for Treatment [facility]; [facility] Work Phone: Instructions* Name Dates Details Patient Instructions Indication:BMI 20.0-20.9, adult Start:01-Mar-2022 Instruction Type:Provider Instructions for Treatment How to Access Health Informa tion Online using Patient Portal and [employer]rd [employer] Apps Indication:BMI 20.0-20.9, adult Start:01-Mar-2022 Instruction Type:Patient Education Patient Instructions Indication:BMI less than 19,adult Start:20-Nov-2021 Instruction Type:Provider Instructions for Treatment How to Access Health Informa tion Online using Patient Portal and [employer] Apps Indication:BMI less than 19,adult Start:20-Nov-2021 Instruction Type:Patient Education Patient Instructions Indication:BMI 20.0-20.9, adult Start:28-Oct-2021 Instruction Type:Provider Instructions for Treatment How to Access Health Informa tion Online using Patient Portal and [employer] Apps Indication:BMI 20.0-20.9, adult Start:28-Oct-2021 Instruction Type:Patient Education Patient Instructions Indication:BMI 20.0-20.9, adult Start:24-Sep-2021 Instruction Type:Provider Instructions for Treatment How to Access Health Informa tion Online using Patient Portal and [employer] Apps Indication:BMI 20.0-20.9, adult Start:24-Sep-2021 Instruction Type:Patient Education Patient Instructions Indication:BMI less than 19,adult Start:16-Jul-2021 Instruction Type:Provider Instructions for Treatment How to Access Health Informa tion Online using Patient Portal and [employer] Apps Indication:BMI less than 19,adult Start:16-Jul-2021 Instruction Type:Patient Education Patient Instructions Indication:Non-smoker Start:19-Jun-2021 Instruction Type:Provider Instructions for Treatment How to Access Health Informa tion Online using Patient Portal and [employer] Apps Indication:Non-smoker Start:19-Jun-2021 Instruction Type:Patient Education Patient Instructions Indication:Non-smoker Start:25-Feb-2021 Instruction Type:Provider Instructions for Treatment How to Access Health Informa tion Online using Patient Portal and [employer] Apps Indication:Non-smoker Start:25-Feb-2021 Instruction Type:Patient Education Patient Instructions Indication:Non-smoker Start:18-Feb-2021 Instruction Type:Provider Instructions for Treatment How to Access Health Informa tion Online using Patient Portal and [employer] Apps Indication:Non-smoker Start:18-Feb-2021 Instruction Type:Patient Education How to access health informa tion online Indication:Non-smoker Start:13-Aug-2020 Instruction Type:Patient Education How to access health informa tion online - Detail Indication:Non-smoker Start:13-Aug-2020 Instruction Type:Patient Education Patient Instructions Indication:Non-smoker Start:13-Aug-2020 Instruction Type:Provider Instructions for Treatment How to access health informa tion online Indication:Non-smoker Start:29-Sep-2016 Instruction Type:Patient Education How to access health informa tion online - Detail Indication:Non-smoker Start:29-Sep-2016 Instruction Type:Patient Education Patient Instructions Indication:Non-smoker Start:29-Sep-2016 Instruction Type:Provider Instructions for Treatment Patient Instructions Indication:Irregular heartbeat Start:30-Jul-2014 Instruction Type:Provider Instructions for Treatment How to access health informa tion online Indication:Irregular heartbeat Start:28-Jun-2014 Instruction Type:Patient Education How to access health informa tion online - Detail Indication:Irregular heartbeat Start:28-Jun-2014 Instruction Type:Patient Education Patient Instructions Indication:Irregular heartbeat Start:28-Jun-2014 Instruction Type:Provider Instructions for Treatment [facility]; [facility] Work Phone: Instructions* Name Dates Details Patient Instructions Indication:BMI less than 19,adult Start:24-Mar-2022 Instruction Type:Provider Instructions for Treatment How to Access Health Informa tion Online using Patient Portal and [employer]rd [employer] Apps Indication:BMI less than 19,adult Start:24-Mar-2022 Instruction Type:Patient Education Patient Instructions Indication:BMI 20.0-20.9, adult Start:01-Mar-2022 Instruction Type:Provider Instructions for Treatment How to Access Health Informa tion Online using Patient Portal and [employer] Apps Indication:BMI 20.0-20.9, adult Start:01-Mar-2022 Instruction Type:Patient Education Patient Instructions Indication:BMI less than 19,adult Start:20-Nov-2021 Instruction Type:Provider Instructions for Treatment How to Access Health Informa tion Online using Patient Portal and [employer] Apps Indication:BMI less than 19,adult Start:20-Nov-2021 Instruction Type:Patient Education Patient Instructions Indication:BMI 20.0-20.9, adult Start:28-Oct-2021 Instruction Type:Provider Instructions for Treatment How to Access Health Informa tion Online using Patient Portal and [employer] Apps Indication:BMI 20.0-20.9, adult Start:28-Oct-2021 Instruction Type:Patient Education Patient Instructions Indication:BMI 20.0-20.9, adult Start:24-Sep-2021 Instruction Type:Provider Instructions for Treatment How to Access Health Informa tion Online using Patient Portal and [employer] Apps Indication:BMI 20.0-20.9, adult Start:24-Sep-2021 Instruction Type:Patient Education Patient Instructions Indication:BMI less than 19,adult Start:16-Jul-2021 Instruction Type:Provider Instructions for Treatment How to Access Health Informa tion Online using Patient Portal and [employer] Apps Indication:BMI less than 19,adult Start:16-Jul-2021 Instruction Type:Patient Education Patient Instructions Indication:Non-smoker Start:19-Jun-2021 Instruction Type:Provider Instructions for Treatment How to Access Health Informa tion Online using Patient Portal and [employer] Apps Indication:Non-smoker Start:19-Jun-2021 Instruction Type:Patient Education Patient Instructions Indication:Non-smoker Start:25-Feb-2021 Instruction Type:Provider Instructions for Treatment How to Access Health Informa tion Online using Patient Portal and [employer]rd [employer] Apps Indication:Non-smoker Start:25-Feb-2021 Instruction Type:Patient Education Patient Instructions Indication:Non-smoker Start:18-Feb-2021 Instruction Type:Provider Instructions for Treatment How to Access Health Informa tion Online using Patient Portal and [employer] Apps Indication:Non-smoker Start:18-Feb-2021 Instruction Type:Patient Education How to access health informa tion online Indication:Non-smoker Start:13-Aug-2020 Instruction Type:Patient Education How to access health informa tion online - Detail Indication:Non-smoker Start:13-Aug-2020 Instruction Type:Patient Education Patient Instructions Indication:Non-smoker Start:13-Aug-2020 Instruction Type:Provider Instructions for Treatment How to access health informa tion online Indication:Non-smoker Start:29-Sep-2016 Instruction Type:Patient Education How to access health informa tion online - Detail Indication:Non-smoker Start:29-Sep-2016 Instruction Type:Patient Education Patient Instructions Indication:Non-smoker Start:29-Sep-2016 Instruction Type:Provider Instructions for Treatment Patient Instructions Indication:Irregular heartbeat Start:30-Jul-2014 Instruction Type:Provider Instructions for Treatment How to access health informa tion online Indication:Irregular heartbeat Start:28-Jun-2014 Instruction Type:Patient Education How to access health informa tion online - Detail Indication:Irregular heartbeat Start:28-Jun-2014 Instruction Type:Patient Education Patient Instructions Indication:Irregular heartbeat Start:28-Jun-2014 Instruction Type:Provider Instructions for Treatment [facility]; [facility] Work Phone: Instructions* Name Dates Details Patient Instructions Indication:BMI less than 19,adult Start:24-Mar-2022 Instruction Type:Provider Instructions for Treatment How to Access Health Informa tion Online using Patient Portal and [employer]rd [employer] Apps Indication:BMI less than 19,adult Start:24-Mar-2022 Instruction Type:Patient Education Patient Instructions Indication:BMI 20.0-20.9, adult Start:01-Mar-2022 Instruction Type:Provider Instructions for Treatment How to Access Health Informa tion Online using Patient Portal and [employer]rd [employer] Apps Indication:BMI 20.0-20.9, adult Start:01-Mar-2022 Instruction Type:Patient Education Patient Instructions Indication:BMI less than 19,adult Start:20-Nov-2021 Instruction Type:Provider Instructions for Treatment How to Access Health Informa tion Online using Patient Portal and [employer]rd [employer] Apps Indication:BMI less than 19,adult Start:20-Nov-2021 Instruction Type:Patient Education Patient Instructions Indication:BMI 20.0-20.9, adult Start:28-Oct-2021 Instruction Type:Provider Instructions for Treatment How to Access Health Informa tion Online using Patient Portal and [employer]rd [employer] Apps Indication:BMI 20.0-20.9, adult Start:28-Oct-2021 Instruction Type:Patient Education Patient Instructions Indication:BMI 20.0-20.9, adult Start:24-Sep-2021 Instruction Type:Provider Instructions for Treatment How to Access Health Informa tion Online using Patient Portal and [employer]rd [employer] Apps Indication:BMI 20.0-20.9, adult Start:24-Sep-2021 Instruction Type:Patient Education Patient Instructions Indication:BMI less than 19,adult Start:16-Jul-2021 Instruction Type:Provider Instructions for Treatment How to Access Health Informa tion Online using Patient Portal and [employer]rd [employer] Apps Indication:BMI less than 19,adult Start:16-Jul-2021 Instruction Type:Patient Education Patient Instructions Indication:Non-smoker Start:19-Jun-2021 Instruction Type:Provider Instructions for Treatment How to Access Health Informa tion Online using Patient Portal and [employer]rd [employer] Apps Indication:Non-smoker Start:19-Jun-2021 Instruction Type:Patient Education Patient Instructions Indication:Non-smoker Start:25-Feb-2021 Instruction Type:Provider Instructions for Treatment How to Access Health Informa tion Online using Patient Portal and [employer]rd [employer] Apps Indication:Non-smoker Start:25-Feb-2021 Instruction Type:Patient Education Patient Instructions Indication:Non-smoker Start:18-Feb-2021 Instruction Type:Provider Instructions for Treatment How to Access Health Informa tion Online using Patient Portal and [employer] Apps Indication:Non-smoker Start:18-Feb-2021 Instruction Type:Patient Education How to access health informa tion online Indication:Non-smoker Start:13-Aug-2020 Instruction Type:Patient Education How to access health informa tion online - Detail Indication:Non-smoker Start:13-Aug-2020 Instruction Type:Patient Education Patient Instructions Indication:Non-smoker Start:13-Aug-2020 Instruction Type:Provider Instructions for Treatment How to access health informa tion online Indication:Non-smoker Start:29-Sep-2016 Instruction Type:Patient Education How to access health informa tion online - Detail Indication:Non-smoker Start:29-Sep-2016 Instruction Type:Patient Education Patient Instructions Indication:Non-smoker Start:29-Sep-2016 Instruction Type:Provider Instructions for Treatment Patient Instructions Indication:Irregular heartbeat Start:30-Jul-2014 Instruction Type:Provider Instructions for Treatment How to access health informa tion online Indication:Irregular heartbeat Start:28-Jun-2014 Instruction Type:Patient Education How to access health informa tion online - Detail Indication:Irregular heartbeat Start:28-Jun-2014 Instruction Type:Patient Education Patient Instructions Indication:Irregular heartbeat Start:28-Jun-2014 Instruction Type:Provider Instructions for Treatment [facility]; [facility] Work Phone: Instructions* Name Dates Details Patient Instructions Indication:Non-smoker Start:21-Oct-2022 Instruction Type:Provider Instructions for Treatment How to Access Health Informa tion Online using Patient Portal and [employer]rd [employer] Apps Indication:Non-smoker Start:21-Oct-2022 Instruction Type:Patient Education Patient Instructions Indication:BMI less than 19,adult Start:24-Mar-2022 Instruction Type:Provider Instructions for Treatment How to Access Health Informa tion Online using Patient Portal and [employer]rd [employer] Apps Indication:BMI less than 19,adult Start:24-Mar-2022 Instruction Type:Patient Education Patient Instructions Indication:BMI 20.0-20.9, adult Start:01-Mar-2022 Instruction Type:Provider Instructions for Treatment How to Access Health Informa tion Online using Patient Portal and [employer]rd [employer] Apps Indication:BMI 20.0-20.9, adult Start:01-Mar-2022 Instruction Type:Patient Education Patient Instructions Indication:BMI less than 19,adult Start:20-Nov-2021 Instruction Type:Provider Instructions for Treatment How to Access Health Informa tion Online using Patient Portal and [employer]rd [employer] Apps Indication:BMI less than 19,adult Start:20-Nov-2021 Instruction Type:Patient Education Patient Instructions Indication:BMI 20.0-20.9, adult Start:28-Oct-2021 Instruction Type:Provider Instructions for Treatment How to Access Health Informa tion Online using Patient Portal and [employer]rd [employer] Apps Indication:BMI 20.0-20.9, adult Start:28-Oct-2021 Instruction Type:Patient Education Patient Instructions Indication:BMI 20.0-20.9, adult Start:24-Sep-2021 Instruction Type:Provider Instructions for Treatment How to Access Health Informa tion Online using Patient Portal and [employer]rd [employer] Apps Indication:BMI 20.0-20.9, adult Start:24-Sep-2021 Instruction Type:Patient Education Patient Instructions Indication:BMI less than 19,adult Start:16-Jul-2021 Instruction Type:Provider Instructions for Treatment How to Access Health Informa tion Online using Patient Portal and [employer]rd [employer] Apps Indication:BMI less than 19,adult Start:16-Jul-2021 Instruction Type:Patient Education Patient Instructions Indication:Non-smoker Start:19-Jun-2021 Instruction Type:Provider Instructions for Treatment How to Access Health Informa tion Online using Patient Portal and [employer]rd [employer] Apps Indication:Non-smoker Start:19-Jun-2021 Instruction Type:Patient Education Patient Instructions Indication:Non-smoker Start:25-Feb-2021 Instruction Type:Provider Instructions for Treatment How to Access Health Informa tion Online using Patient Portal and [employer]rd [employer] Apps Indication:Non-smoker Start:25-Feb-2021 Instruction Type:Patient Education Patient Instructions Indication:Non-smoker Start:18-Feb-2021 Instruction Type:Provider Instructions for Treatment How to Access Health Informa tion Online using Patient Portal and [employer]rd [employer] Apps Indication:Non-smoker Start:18-Feb-2021 Instruction Type:Patient Education How to access health informa tion online Indication:Non-smoker Start:13-Aug-2020 Instruction Type:Patient Education How to access health informa tion online - Detail Indication:Non-smoker Start:13-Aug-2020 Instruction Type:Patient Education Patient Instructions Indication:Non-smoker Start:13-Aug-2020 Instruction Type:Provider Instructions for Treatment How to access health informa tion online Indication:Non-smoker Start:29-Sep-2016 Instruction Type:Patient Education How to access health informa tion online - Detail Indication:Non-smoker Start:29-Sep-2016 Instruction Type:Patient Education Patient Instructions Indication:Non-smoker Start:29-Sep-2016 Instruction Type:Provider Instructions for Treatment Patient Instructions Indication:Irregular heartbeat Start:30-Jul-2014 Instruction Type:Provider Instructions for Treatment How to access health informa tion online Indication:Irregular heartbeat Start:28-Jun-2014 Instruction Type:Patient Education How to access health informa tion online - Detail Indication:Irregular heartbeat Start:28-Jun-2014 Instruction Type:Patient Education Patient Instructions Indication:Irregular heartbeat Start:28-Jun-2014 Instruction Type:Provider Instructions for Treatment [facility]; [facility] Work Phone: Instructions* Name Dates Details Patient Instructions Indication:Non-smoker Start:21-Oct-2022 Instruction Type:Provider Instructions for Treatment How to Access Health Informa tion Online using Patient Portal and [employer]rd [employer] Apps Indication:Non-smoker Start:21-Oct-2022 Instruction Type:Patient Education Patient Instructions Indication:BMI less than 19,adult Start:24-Mar-2022 Instruction Type:Provider Instructions for Treatment How to Access Health Informa tion Online using Patient Portal and [employer]rd [employer] Apps Indication:BMI less than 19,adult Start:24-Mar-2022 Instruction Type:Patient Education Patient Instructions Indication:BMI 20.0-20.9, adult Start:01-Mar-2022 Instruction Type:Provider Instructions for Treatment How to Access Health Informa tion Online using Patient Portal and [employer]rd [employer] Apps Indication:BMI 20.0-20.9, adult Start:01-Mar-2022 Instruction Type:Patient Education Patient Instructions Indication:BMI less than 19,adult Start:20-Nov-2021 Instruction Type:Provider Instructions for Treatment How to Access Health Informa tion Online using Patient Portal and [employer] Apps Indication:BMI less than 19,adult Start:20-Nov-2021 Instruction Type:Patient Education Patient Instructions Indication:BMI 20.0-20.9, adult Start:28-Oct-2021 Instruction Type:Provider Instructions for Treatment How to Access Health Informa tion Online using Patient Portal and [employer] Indication:BMI 20.0-20.9, adult Start:28-Oct-2021 Instruction Type:Patient Education Patient Instructions Indication:BMI 20.0-20.9, adult Start:24-Sep-2021 Instruction Type:Provider Instructions for Treatment How to Access Health Informa tion Online using Patient Portal and [employer] Apps Indication:BMI 20.0-20.9, adult Start:24-Sep-2021 Instruction Type:Patient Education Patient Instructions Indication:BMI less than 19,adult Start:16-Jul-2021 Instruction Type:Provider Instructions for Treatment How to Access Health Informa tion Online using Patient Portal and [employer] Apps Indication:BMI less than 19,adult Start:16-Jul-2021 Instruction Type:Patient Education Patient Instructions Indication:Non-smoker Start:19-Jun-2021 Instruction Type:Provider Instructions for Treatment How to Access Health Informa tion Online using Patient Portal and [employer] Apps Indication:Non-smoker Start:19-Jun-2021 Instruction Type:Patient Education Patient Instructions Indication:Non-smoker Start:25-Feb-2021 Instruction Type:Provider Instructions for Treatment How to Access Health Informa tion Online using Patient Portal and [employer] Apps Indication:Non-smoker Start:25-Feb-2021 Instruction Type:Patient Education Patient Instructions Indication:Non-smoker Start:18-Feb-2021 Instruction Type:Provider Instructions for Treatment How to Access Health Informa tion Online using Patient Portal and [employer] Apps Indication:Non-smoker Start:18-Feb-2021 Instruction Type:Patient Education How to access health informa tion online Indication:Non-smoker Start:13-Aug-2020 Instruction Type:Patient Education How to access health informa tion online - Detail Indication:Non-smoker Start:13-Aug-2020 Instruction Type:Patient Education Patient Instructions Indication:Non-smoker Start:13-Aug-2020 Instruction Type:Provider Instructions for Treatment How to access health informa tion online Indication:Non-smoker Start:29-Sep-2016 Instruction Type:Patient Education How to access health informa tion online - Detail Indication:Non-smoker Start:29-Sep-2016 Instruction Type:Patient Education Patient Instructions Indication:Non-smoker Start:29-Sep-2016 Instruction Type:Provider Instructions for Treatment Patient Instructions Indication:Irregular heartbeat Start:30-Jul-2014 Instruction Type:Provider Instructions for Treatment How to access health informa tion online Indication:Irregular heartbeat Start:28-Jun-2014 Instruction Type:Patient Education How to access health informa tion online - Detail Indication:Irregular heartbeat Start:28-Jun-2014 Instruction Type:Patient Education Patient Instructions Indication:Irregular heartbeat Start:28-Jun-2014 Instruction Type:Provider Instructions for Treatment [facility]; [facility] Work Phone: Instructions* Name Dates Details Patient Instructions Indication:BMI less than 19,adult Start:18-Nov-2022 Instruction Type:Provider Instructions for Treatment How to Access Health Informa tion Online using Patient Portal and [employer] Apps Indication:BMI less than 19,adult Start:18-Nov-2022 Instruction Type:Patient Education Patient Instructions Indication:Non-smoker Start:21-Oct-2022 Instruction Type:Provider Instructions for Treatment How to Access Health Informa tion Online using Patient Portal and [employer] Apps Indication:Non-smoker Start:21-Oct-2022 Instruction Type:Patient Education Patient Instructions Indication:BMI less than 19,adult Start:24-Mar-2022 Instruction Type:Provider Instructions for Treatment How to Access Health Informa tion Online using Patient Portal and [employer] Apps Indication:BMI less than 19,adult Start:24-Mar-2022 Instruction Type:Patient Education Patient Instructions Indication:BMI 20.0-20.9, adult Start:01-Mar-2022 Instruction Type:Provider Instructions for Treatment How to Access Health Informa tion Online using Patient Portal and [employer] Apps Indication:BMI 20.0-20.9, adult Start:01-Mar-2022 Instruction Type:Patient Education Patient Instructions Indication:BMI less than 19,adult Start:20-Nov-2021 Instruction Type:Provider Instructions for Treatment How to Access Health Informa tion Online using Patient Portal and [employer] Apps Indication:BMI less than 19,adult Start:20-Nov-2021 Instruction Type:Patient Education Patient Instructions Indication:BMI 20.0-20.9, adult Start:28-Oct-2021 Instruction Type:Provider Instructions for Treatment How to Access Health Informa tion Online using Patient Portal and [employer] Apps Indication:BMI 20.0-20.9, adult Start:28-Oct-2021 Instruction Type:Patient Education Patient Instructions Indication:BMI 20.0-20.9, adult Start:24-Sep-2021 Instruction Type:Provider Instructions for Treatment How to Access Health Informa tion Online using Patient Portal and [employer] Apps Indication:BMI 20.0-20.9, adult Start:24-Sep-2021 Instruction Type:Patient Education Patient Instructions Indication:BMI less than 19,adult Start:16-Jul-2021 Instruction Type:Provider Instructions for Treatment How to Access Health Informa tion Online using Patient Portal and [employer] Apps Indication:BMI less than 19,adult Start:16-Jul-2021 Instruction Type:Patient Education Patient Instructions Indication:Non-smoker Start:19-Jun-2021 Instruction Type:Provider Instructions for Treatment How to Access Health Informa tion Online using Patient Portal and [employer] Apps Indication:Non-smoker Start:19-Jun-2021 Instruction Type:Patient Education Patient Instructions Indication:Non-smoker Start:25-Feb-2021 Instruction Type:Provider Instructions for Treatment How to Access Health Informa tion Online using Patient Portal and [employer] Apps Indication:Non-smoker Start:25-Feb-2021 Instruction Type:Patient Education Patient Instructions Indication:Non-smoker Start:18-Feb-2021 Instruction Type:Provider Instructions for Treatment How to Access Health Informa tion Online using Patient Portal and [employer] Apps Indication:Non-smoker Start:18-Feb-2021 Instruction Type:Patient Education How to access health informa tion online Indication:Non-smoker Start:13-Aug-2020 Instruction Type:Patient Education How to access health informa tion online - Detail Indication:Non-smoker Start:13-Aug-2020 Instruction Type:Patient Education Patient Instructions Indication:Non-smoker Start:13-Aug-2020 Instruction Type:Provider Instructions for Treatment How to access health informa tion online Indication:Non-smoker Start:29-Sep-2016 Instruction Type:Patient Education How to access health informa tion online - Detail Indication:Non-smoker Start:29-Sep-2016 Instruction Type:Patient Education Patient Instructions Indication:Non-smoker Start:29-Sep-2016 Instruction Type:Provider Instructions for Treatment Patient Instructions Indication:Irregular heartbeat Start:30-Jul-2014 Instruction Type:Provider Instructions for Treatment How to access health informa tion online Indication:Irregular heartbeat Start:28-Jun-2014 Instruction Type:Patient Education How to access health informa tion online - Detail Indication:Irregular heartbeat Start:28-Jun-2014 Instruction Type:Patient Education Patient Instructions Indication:Irregular heartbeat Start:28-Jun-2014 Instruction Type:Provider Instructions for Treatment [facility]; [facility] Work Phone: Instructions* Name Dates Details How to Access Health Informa tion Online using Patient Portal and [employer] Apps Indication:BMI less than 19,adult Start:20-Jan-2023 Instruction Type:Patient Education Patient Instructions Indication:BMI less than 19,adult Start:20-Jan-2023 Instruction Type:Provider Instructions for Treatment Patient Instructions Indication:BMI less than 19,adult Start:18-Nov-2022 Instruction Type:Provider Instructions for Treatment How to Access Health Informa tion Online using Patient Portal and [employer] Apps Indication:BMI less than 19,adult Start:18-Nov-2022 Instruction Type:Patient Education Patient Instructions Indication:Non-smoker Start:21-Oct-2022 Instruction Type:Provider Instructions for Treatment How to Access Health Informa tion Online using Patient Portal and [employer] Apps Indication:Non-smoker Start:21-Oct-2022 Instruction Type:Patient Education Patient Instructions Indication:BMI less than 19,adult Start:24-Mar-2022 Instruction Type:Provider Instructions for Treatment How to Access Health Informa tion Online using Patient Portal and [employer] Apps Indication:BMI less than 19,adult Start:24-Mar-2022 Instruction Type:Patient Education Patient Instructions Indication:BMI 20.0-20.9, adult Start:01-Mar-2022 Instruction Type:Provider Instructions for Treatment How to Access Health Informa tion Online using Patient Portal and [employer] Apps Indication:BMI 20.0-20.9, adult Start:01-Mar-2022 Instruction Type:Patient Education Patient Instructions Indication:BMI less than 19,adult Start:20-Nov-2021 Instruction Type:Provider Instructions for Treatment How to Access Health Informa tion Online using Patient Portal and [employer] Apps Indication:BMI less than 19,adult Start:20-Nov-2021 Instruction Type:Patient Education Patient Instructions Indication:BMI 20.0-20.9, adult Start:28-Oct-2021 Instruction Type:Provider Instructions for Treatment How to Access Health Informa tion Online using Patient Portal and [employer] Apps Indication:BMI 20.0-20.9, adult Start:28-Oct-2021 Instruction Type:Patient Education Patient Instructions Indication:BMI 20.0-20.9, adult Start:24-Sep-2021 Instruction Type:Provider Instructions for Treatment How to Access Health Informa tion Online using Patient Portal and [employer] Apps Indication:BMI 20.0-20.9, adult Start:24-Sep-2021 Instruction Type:Patient Education Patient Instructions Indication:BMI less than 19,adult Start:16-Jul-2021 Instruction Type:Provider Instructions for Treatment How to Access Health Informa tion Online using Patient Portal and [employer] Apps Indication:BMI less than 19,adult Start:16-Jul-2021 Instruction Type:Patient Education Patient Instructions Indication:Non-smoker Start:19-Jun-2021 Instruction Type:Provider Instructions for Treatment How to Access Health Informa tion Online using Patient Portal and [employer] Apps Indication:Non-smoker Start:19-Jun-2021 Instruction Type:Patient Education Patient Instructions Indication:Non-smoker Start:25-Feb-2021 Instruction Type:Provider Instructions for Treatment How to Access Health Informa tion Online using Patient Portal and [employer] Apps Indication:Non-smoker Start:25-Feb-2021 Instruction Type:Patient Education Patient Instructions Indication:Non-smoker Start:18-Feb-2021 Instruction Type:Provider Instructions for Treatment How to Access Health Informa tion Online using Patient Portal and [employer] Apps Indication:Non-smoker Start:18-Feb-2021 Instruction Type:Patient Education How to access health informa tion online Indication:Non-smoker Start:13-Aug-2020 Instruction Type:Patient Education How to access health informa tion online - Detail Indication:Non-smoker Start:13-Aug-2020 Instruction Type:Patient Education Patient Instructions Indication:Non-smoker Start:13-Aug-2020 Instruction Type:Provider Instructions for Treatment How to access health informa tion online Indication:Non-smoker Start:29-Sep-2016 Instruction Type:Patient Education How to access health informa tion online - Detail Indication:Non-smoker Start:29-Sep-2016 Instruction Type:Patient Education Patient Instructions Indication:Non-smoker Start:29-Sep-2016 Instruction Type:Provider Instructions for Treatment Patient Instructions Indication:Irregular heartbeat Start:30-Jul-2014 Instruction Type:Provider Instructions for Treatment How to access health informa tion online Indication:Irregular heartbeat Start:28-Jun-2014 Instruction Type:Patient Education How to access health informa tion online - Detail Indication:Irregular heartbeat Start:28-Jun-2014 Instruction Type:Patient Education Patient Instructions Indication:Irregular heartbeat Start:28-Jun-2014 Instruction Type:Provider Instructions for Treatment [facility]; [facility] Work Phone: Instructions* Name Dates Details Patient Instructions Indication:Non-smoker Start:21-Feb-2023 Instruction Type:Provider Instructions for Treatment How to Access Health Informa tion Online using Patient Portal and [employer] Apps Indication:Non-smoker Start:21-Feb-2023 Instruction Type:Patient Education How to Access Health Informa tion Online using Patient Portal and [employer] Apps Indication:BMI less than 19,adult Start:20-Jan-2023 Instruction Type:Patient Education Patient Instructions Indication:BMI less than 19,adult Start:20-Jan-2023 Instruction Type:Provider Instructions for Treatment Patient Instructions Indication:BMI less than 19,adult Start:18-Nov-2022 Instruction Type:Provider Instructions for Treatment How to Access Health Informa tion Online using Patient Portal and [employer] Apps Indication:BMI less than 19,adult Start:18-Nov-2022 Instruction Type:Patient Education Patient Instructions Indication:Non-smoker Start:21-Oct-2022 Instruction Type:Provider Instructions for Treatment How to Access Health Informa tion Online using Patient Portal and [employer] Apps Indication:Non-smoker Start:21-Oct-2022 Instruction Type:Patient Education Patient Instructions Indication:BMI less than 19,adult Start:24-Mar-2022 Instruction Type:Provider Instructions for Treatment How to Access Health Informa tion Online using Patient Portal and [employer] Apps Indication:BMI less than 19,adult Start:24-Mar-2022 Instruction Type:Patient Education Patient Instructions Indication:BMI 20.0-20.9, adult Start:01-Mar-2022 Instruction Type:Provider Instructions for Treatment How to Access Health Informa tion Online using Patient Portal and [employer] Apps Indication:BMI 20.0-20.9, adult Start:01-Mar-2022 Instruction Type:Patient Education Patient Instructions Indication:BMI less than 19,adult Start:20-Nov-2021 Instruction Type:Provider Instructions for Treatment How to Access Health Informa tion Online using Patient Portal and [employer] Apps Indication:BMI less than 19,adult Start:20-Nov-2021 Instruction Type:Patient Education Patient Instructions Indication:BMI 20.0-20.9, adult Start:28-Oct-2021 Instruction Type:Provider Instructions for Treatment How to Access Health Informa tion Online using Patient Portal and [employer] Apps Indication:BMI 20.0-20.9, adult Start:28-Oct-2021 Instruction Type:Patient Education Patient Instructions Indication:BMI 20.0-20.9, adult Start:24-Sep-2021 Instruction Type:Provider Instructions for Treatment How to Access Health Informa tion Online using Patient Portal and [employer] Apps Indication:BMI 20.0-20.9, adult Start:24-Sep-2021 Instruction Type:Patient Education Patient Instructions Indication:BMI less than 19,adult Start:16-Jul-2021 Instruction Type:Provider Instructions for Treatment How to Access Health Informa tion Online using Patient Portal and [employer] Apps Indication:BMI less than 19,adult Start:16-Jul-2021 Instruction Type:Patient Education Patient Instructions Indication:Non-smoker Start:19-Jun-2021 Instruction Type:Provider Instructions for Treatment How to Access Health Informa tion Online using Patient Portal and [employer] Apps Indication:Non-smoker Start:19-Jun-2021 Instruction Type:Patient Education Patient Instructions Indication:Non-smoker Start:25-Feb-2021 Instruction Type:Provider Instructions for Treatment How to Access Health Informa tion Online using Patient Portal and [employer] Apps Indication:Non-smoker Start:25-Feb-2021 Instruction Type:Patient Education Patient Instructions Indication:Non-smoker Start:18-Feb-2021 Instruction Type:Provider Instructions for Treatment How to Access Health Informa tion Online using Patient Portal and [employer] Apps Indication:Non-smoker Start:18-Feb-2021 Instruction Type:Patient Education How to access health informa tion online Indication:Non-smoker Start:13-Aug-2020 Instruction Type:Patient Education How to access health informa tion online - Detail Indication:Non-smoker Start:13-Aug-2020 Instruction Type:Patient Education Patient Instructions Indication:Non-smoker Start:13-Aug-2020 Instruction Type:Provider Instructions for Treatment How to access health informa tion online Indication:Non-smoker Start:29-Sep-2016 Instruction Type:Patient Education How to access health informa tion online - Detail Indication:Non-smoker Start:29-Sep-2016 Instruction Type:Patient Education Patient Instructions Indication:Non-smoker Start:29-Sep-2016 Instruction Type:Provider Instructions for Treatment Patient Instructions Indication:Irregular heartbeat Start:30-Jul-2014 Instruction Type:Provider Instructions for Treatment How to access health informa tion online Indication:Irregular heartbeat Start:28-Jun-2014 Instruction Type:Patient Education How to access health informa tion online - Detail Indication:Irregular heartbeat Start:28-Jun-2014 Instruction Type:Patient Education Patient Instructions Indication:Irregular heartbeat Start:28-Jun-2014 Instruction Type:Provider Instructions for Treatment [facility]; [facility] Work Phone: Instructions* Name Dates Details Patient Instructions Indication:Non-smoker Start:18-Mar-2023 Instruction Type:Provider Instructions for Treatment How to Access Health Informa tion Online using Patient Portal and [employer] Apps Indication:Non-smoker Start:18-Mar-2023 Instruction Type:Patient Education Patient Instructions Indication:Non-smoker Start:21-Feb-2023 Instruction Type:Provider Instructions for Treatment How to Access Health Informa tion Online using Patient Portal and [employer] Apps Indication:Non-smoker Start:21-Feb-2023 Instruction Type:Patient Education How to Access Health Informa tion Online using Patient Portal and [employer] Apps Indication:BMI less than 19,adult Start:20-Jan-2023 Instruction Type:Patient Education Patient Instructions Indication:BMI less than 19,adult Start:20-Jan-2023 Instruction Type:Provider Instructions for Treatment Patient Instructions Indication:BMI less than 19,adult Start:18-Nov-2022 Instruction Type:Provider Instructions for Treatment How to Access Health Informa tion Online using Patient Portal and [employer] Apps Indication:BMI less than 19,adult Start:18-Nov-2022 Instruction Type:Patient Education Patient Instructions Indication:Non-smoker Start:21-Oct-2022 Instruction Type:Provider Instructions for Treatment How to Access Health Informa tion Online using Patient Portal and [employer] Apps Indication:Non-smoker Start:21-Oct-2022 Instruction Type:Patient Education Patient Instructions Indication:BMI less than 19,adult Start:24-Mar-2022 Instruction Type:Provider Instructions for Treatment How to Access Health Informa tion Online using Patient Portal and [employer] Apps Indication:BMI less than 19,adult Start:24-Mar-2022 Instruction Type:Patient Education Patient Instructions Indication:BMI 20.0-20.9, adult Start:01-Mar-2022 Instruction Type:Provider Instructions for Treatment How to Access Health Informa tion Online using Patient Portal and [employer] Apps Indication:BMI 20.0-20.9, adult Start:01-Mar-2022 Instruction Type:Patient Education Patient Instructions Indication:BMI less than 19,adult Start:20-Nov-2021 Instruction Type:Provider Instructions for Treatment How to Access Health Informa tion Online using Patient Portal and [employer] Apps Indication:BMI less than 19,adult Start:20-Nov-2021 Instruction Type:Patient Education Patient Instructions Indication:BMI 20.0-20.9, adult Start:28-Oct-2021 Instruction Type:Provider Instructions for Treatment How to Access Health Informa tion Online using Patient Portal and [employer] Apps Indication:BMI 20.0-20.9, adult Start:28-Oct-2021 Instruction Type:Patient Education Patient Instructions Indication:BMI 20.0-20.9, adult Start:24-Sep-2021 Instruction Type:Provider Instructions for Treatment How to Access Health Informa tion Online using Patient Portal and [employer] Apps Indication:BMI 20.0-20.9, adult Start:24-Sep-2021 Instruction Type:Patient Education Patient Instructions Indication:BMI less than 19,adult Start:16-Jul-2021 Instruction Type:Provider Instructions for Treatment How to Access Health Informa tion Online using Patient Portal and [employer] Apps Indication:BMI less than 19,adult Start:16-Jul-2021 Instruction Type:Patient Education Patient Instructions Indication:Non-smoker Start:19-Jun-2021 Instruction Type:Provider Instructions for Treatment How to Access Health Informa tion Online using Patient Portal and [employer] Apps Indication:Non-smoker Start:19-Jun-2021 Instruction Type:Patient Education Patient Instructions Indication:Non-smoker Start:25-Feb-2021 Instruction Type:Provider Instructions for Treatment How to Access Health Informa tion Online using Patient Portal and [employer] Apps Indication:Non-smoker Start:25-Feb-2021 Instruction Type:Patient Education Patient Instructions Indication:Non-smoker Start:18-Feb-2021 Instruction Type:Provider Instructions for Treatment How to Access Health Informa tion Online using Patient Portal and [employer] Apps Indication:Non-smoker Start:18-Feb-2021 Instruction Type:Patient Education How to access health informa tion online Indication:Non-smoker Start:13-Aug-2020 Instruction Type:Patient Education How to access health informa tion online - Detail Indication:Non-smoker Start:13-Aug-2020 Instruction Type:Patient Education Patient Instructions Indication:Non-smoker Start:13-Aug-2020 Instruction Type:Provider Instructions for Treatment How to access health informa tion online Indication:Non-smoker Start:29-Sep-2016 Instruction Type:Patient Education How to access health informa tion online - Detail Indication:Non-smoker Start:29-Sep-2016 Instruction Type:Patient Education Patient Instructions Indication:Non-smoker Start:29-Sep-2016 Instruction Type:Provider Instructions for Treatment Patient Instructions Indication:Irregular heartbeat Start:30-Jul-2014 Instruction Type:Provider Instructions for Treatment How to access health informa tion online Indication:Irregular heartbeat Start:28-Jun-2014 Instruction Type:Patient Education How to access health informa tion online - Detail Indication:Irregular heartbeat Start:28-Jun-2014 Instruction Type:Patient Education Patient Instructions Indication:Irregular heartbeat Start:28-Jun-2014 Instruction Type:Provider Instructions for Treatment [facility]; [facility] Work Phone: Instructions* Name Dates Details Patient Instructions Indication:Non-smoker Start:18-Mar-2023 Instruction Type:Provider Instructions for Treatment How to Access Health Informa tion Online using Patient Portal and [employer] Apps Indication:Non-smoker Start:18-Mar-2023 Instruction Type:Patient Education Patient Instructions Indication:Non-smoker Start:21-Feb-2023 Instruction Type:Provider Instructions for Treatment How to Access Health Informa tion Online using Patient Portal and [employer] Indication:Non-smoker Start:21-Feb-2023 Instruction Type:Patient Education How to Access Health Informa tion Online using Patient Portal and [employer] Apps Indication:BMI less than 19,adult Start:20-Jan-2023 Instruction Type:Patient Education Patient Instructions Indication:BMI less than 19,adult Start:20-Jan-2023 Instruction Type:Provider Instructions for Treatment Patient Instructions Indication:BMI less than 19,adult Start:18-Nov-2022 Instruction Type:Provider Instructions for Treatment How to Access Health Informa tion Online using Patient Portal and [employer] Apps Indication:BMI less than 19,adult Start:18-Nov-2022 Instruction Type:Patient Education Patient Instructions Indication:Non-smoker Start:21-Oct-2022 Instruction Type:Provider Instructions for Treatment How to Access Health Informa tion Online using Patient Portal and [employer] Apps Indication:Non-smoker Start:21-Oct-2022 Instruction Type:Patient Education Patient Instructions Indication:BMI less than 19,adult Start:24-Mar-2022 Instruction Type:Provider Instructions for Treatment How to Access Health Informa tion Online using Patient Portal and [employer]rd [employer] Apps Indication:BMI less than 19,adult Start:24-Mar-2022 Instruction Type:Patient Education Patient Instructions Indication:BMI 20.0-20.9, adult Start:01-Mar-2022 Instruction Type:Provider Instructions for Treatment How to Access Health Informa tion Online using Patient Portal and [employer]rd [employer] Apps Indication:BMI 20.0-20.9, adult Start:01-Mar-2022 Instruction Type:Patient Education Patient Instructions Indication:BMI less than 19,adult Start:20-Nov-2021 Instruction Type:Provider Instructions for Treatment How to Access Health Informa tion Online using Patient Portal and [employer] Apps Indication:BMI less than 19,adult Start:20-Nov-2021 Instruction Type:Patient Education Patient Instructions Indication:BMI 20.0-20.9, adult Start:28-Oct-2021 Instruction Type:Provider Instructions for Treatment How to Access Health Informa tion Online using Patient Portal and [employer] Apps Indication:BMI 20.0-20.9, adult Start:28-Oct-2021 Instruction Type:Patient Education Patient Instructions Indication:BMI 20.0-20.9, adult Start:24-Sep-2021 Instruction Type:Provider Instructions for Treatment How to Access Health Informa tion Online using Patient Portal and [employer] Apps Indication:BMI 20.0-20.9, adult Start:24-Sep-2021 Instruction Type:Patient Education Patient Instructions Indication:BMI less than 19,adult Start:16-Jul-2021 Instruction Type:Provider Instructions for Treatment How to Access Health Informa tion Online using Patient Portal and [employer]rd [employer] Apps Indication:BMI less than 19,adult Start:16-Jul-2021 Instruction Type:Patient Education Patient Instructions Indication:Non-smoker Start:19-Jun-2021 Instruction Type:Provider Instructions for Treatment How to Access Health Informa tion Online using Patient Portal and [employer] Apps Indication:Non-smoker Start:19-Jun-2021 Instruction Type:Patient Education Patient Instructions Indication:Non-smoker Start:25-Feb-2021 Instruction Type:Provider Instructions for Treatment How to Access Health Informa tion Online using Patient Portal and [employer] Apps Indication:Non-smoker Start:25-Feb-2021 Instruction Type:Patient Education Patient Instructions Indication:Non-smoker Start:18-Feb-2021 Instruction Type:Provider Instructions for Treatment How to Access Health Informa tion Online using Patient Portal and [employer] Apps Indication:Non-smoker Start:18-Feb-2021 Instruction Type:Patient Education How to access health informa tion online Indication:Non-smoker Start:13-Aug-2020 Instruction Type:Patient Education How to access health informa tion online - Detail Indication:Non-smoker Start:13-Aug-2020 Instruction Type:Patient Education Patient Instructions Indication:Non-smoker Start:13-Aug-2020 Instruction Type:Provider Instructions for Treatment How to access health informa tion online Indication:Non-smoker Start:29-Sep-2016 Instruction Type:Patient Education How to access health informa tion online - Detail Indication:Non-smoker Start:29-Sep-2016 Instruction Type:Patient Education Patient Instructions Indication:Non-smoker Start:29-Sep-2016 Instruction Type:Provider Instructions for Treatment Patient Instructions Indication:Irregular heartbeat Start:30-Jul-2014 Instruction Type:Provider Instructions for Treatment How to access health informa tion online Indication:Irregular heartbeat Start:28-Jun-2014 Instruction Type:Patient Education How to access health informa tion online - Detail Indication:Irregular heartbeat Start:28-Jun-2014 Instruction Type:Patient Education Patient Instructions Indication:Irregular heartbeat Start:28-Jun-2014 Instruction Type:Provider Instructions for Treatment [facility]; [facility] Work Phone: Instructions* Name Dates Details Patient Instructions Indication:Non-smoker Start:18-Mar-2023 Instruction Type:Provider Instructions for Treatment How to Access Health Informa tion Online using Patient Portal and [employer]rd [employer] Apps Indication:Non-smoker Start:18-Mar-2023 Instruction Type:Patient Education Patient Instructions Indication:Non-smoker Start:21-Feb-2023 Instruction Type:Provider Instructions for Treatment How to Access Health Informa tion Online using Patient Portal and [employer] Apps Indication:Non-smoker Start:21-Feb-2023 Instruction Type:Patient Education How to Access Health Informa tion Online using Patient Portal and [employer]rd [employer] Apps Indication:BMI less than 19,adult Start:20-Jan-2023 Instruction Type:Patient Education Patient Instructions Indication:BMI less than 19,adult Start:20-Jan-2023 Instruction Type:Provider Instructions for Treatment Patient Instructions Indication:BMI less than 19,adult Start:18-Nov-2022 Instruction Type:Provider Instructions for Treatment How to Access Health Informa tion Online using Patient Portal and [employer]rd [employer] Apps Indication:BMI less than 19,adult Start:18-Nov-2022 Instruction Type:Patient Education Patient Instructions Indication:Non-smoker Start:21-Oct-2022 Instruction Type:Provider Instructions for Treatment How to Access Health Informa tion Online using Patient Portal and [employer] Apps Indication:Non-smoker Start:21-Oct-2022 Instruction Type:Patient Education Patient Instructions Indication:BMI less than 19,adult Start:24-Mar-2022 Instruction Type:Provider Instructions for Treatment How to Access Health Informa tion Online using Patient Portal and [employer]rd [employer] Apps Indication:BMI less than 19,adult Start:24-Mar-2022 Instruction Type:Patient Education Patient Instructions Indication:BMI 20.0-20.9, adult Start:01-Mar-2022 Instruction Type:Provider Instructions for Treatment How to Access Health Informa tion Online using Patient Portal and [employer]rd [employer] Apps Indication:BMI 20.0-20.9, adult Start:01-Mar-2022 Instruction Type:Patient Education Patient Instructions Indication:BMI less than 19,adult Start:20-Nov-2021 Instruction Type:Provider Instructions for Treatment How to Access Health Informa tion Online using Patient Portal and [employer] Apps Indication:BMI less than 19,adult Start:20-Nov-2021 Instruction Type:Patient Education Patient Instructions Indication:BMI 20.0-20.9, adult Start:28-Oct-2021 Instruction Type:Provider Instructions for Treatment How to Access Health Informa tion Online using Patient Portal and [employer]rd [employer] Apps Indication:BMI 20.0-20.9, adult Start:28-Oct-2021 Instruction Type:Patient Education Patient Instructions Indication:BMI 20.0-20.9, adult Start:24-Sep-2021 Instruction Type:Provider Instructions for Treatment How to Access Health Informa tion Online using Patient Portal and [employer]rd [employer] Apps Indication:BMI 20.0-20.9, adult Start:24-Sep-2021 Instruction Type:Patient Education Patient Instructions Indication:BMI less than 19,adult Start:16-Jul-2021 Instruction Type:Provider Instructions for Treatment How to Access Health Informa tion Online using Patient Portal and [employer]rd [employer] Apps Indication:BMI less than 19,adult Start:16-Jul-2021 Instruction Type:Patient Education Patient Instructions Indication:Non-smoker Start:19-Jun-2021 Instruction Type:Provider Instructions for Treatment How to Access Health Informa tion Online using Patient Portal and [employer] Apps Indication:Non-smoker Start:19-Jun-2021 Instruction Type:Patient Education Patient Instructions Indication:Non-smoker Start:25-Feb-2021 Instruction Type:Provider Instructions for Treatment How to Access Health Informa tion Online using Patient Portal and [employer]rd [employer] Apps Indication:Non-smoker Start:25-Feb-2021 Instruction Type:Patient Education Patient Instructions Indication:Non-smoker Start:18-Feb-2021 Instruction Type:Provider Instructions for Treatment How to Access Health Informa tion Online using Patient Portal and [employer] Apps Indication:Non-smoker Start:18-Feb-2021 Instruction Type:Patient Education How to access health informa tion online Indication:Non-smoker Start:13-Aug-2020 Instruction Type:Patient Education How to access health informa tion online - Detail Indication:Non-smoker Start:13-Aug-2020 Instruction Type:Patient Education Patient Instructions Indication:Non-smoker Start:13-Aug-2020 Instruction Type:Provider Instructions for Treatment How to access health informa tion online Indication:Non-smoker Start:29-Sep-2016 Instruction Type:Patient Education How to access health informa tion online - Detail Indication:Non-smoker Start:29-Sep-2016 Instruction Type:Patient Education Patient Instructions Indication:Non-smoker Start:29-Sep-2016 Instruction Type:Provider Instructions for Treatment Patient Instructions Indication:Irregular heartbeat Start:30-Jul-2014 Instruction Type:Provider Instructions for Treatment How to access health informa tion online Indication:Irregular heartbeat Start:28-Jun-2014 Instruction Type:Patient Education How to access health informa tion online - Detail Indication:Irregular heartbeat Start:28-Jun-2014 Instruction Type:Patient Education Patient Instructions Indication:Irregular heartbeat Start:28-Jun-2014 Instruction Type:Provider Instructions for Treatment [facility]; [facility] Work Phone: Instructions* Name Dates Details Patient Instructions Indication:Non-smoker Start:18-Mar-2023 Instruction Type:Provider Instructions for Treatment How to Access Health Informa tion Online using Patient Portal and [employer]rd [employer] Apps Indication:Non-smoker Start:18-Mar-2023 Instruction Type:Patient Education Patient Instructions Indication:Non-smoker Start:21-Feb-2023 Instruction Type:Provider Instructions for Treatment How to Access Health Informa tion Online using Patient Portal and [employer]rd [employer] Apps Indication:Non-smoker Start:21-Feb-2023 Instruction Type:Patient Education How to Access Health Informa tion Online using Patient Portal and [employer]rd [employer] Apps Indication:BMI less than 19,adult Start:20-Jan-2023 Instruction Type:Patient Education Patient Instructions Indication:BMI less than 19,adult Start:20-Jan-2023 Instruction Type:Provider Instructions for Treatment Patient Instructions Indication:BMI less than 19,adult Start:18-Nov-2022 Instruction Type:Provider Instructions for Treatment How to Access Health Informa tion Online using Patient Portal and [employer]rd [employer] Apps Indication:BMI less than 19,adult Start:18-Nov-2022 Instruction Type:Patient Education Patient Instructions Indication:Non-smoker Start:21-Oct-2022 Instruction Type:Provider Instructions for Treatment How to Access Health Informa tion Online using Patient Portal and [employer]rd [employer] Apps Indication:Non-smoker Start:21-Oct-2022 Instruction Type:Patient Education Patient Instructions Indication:BMI less than 19,adult Start:24-Mar-2022 Instruction Type:Provider Instructions for Treatment How to Access Health Informa tion Online using Patient Portal and 3rd [employer] Apps Indication:BMI less than 19,adult Start:24-Mar-2022 Instruction Type:Patient Education Patient Instructions Indication:BMI 20.0-20.9, adult Start:01-Mar-2022 Instruction Type:Provider Instructions for Treatment How to Access Health Informa tion Online using Patient Portal and [employer]rd [employer] Apps Indication:BMI 20.0-20.9, adult Start:01-Mar-2022 Instruction Type:Patient Education Patient Instructions Indication:BMI less than 19,adult Start:20-Nov-2021 Instruction Type:Provider Instructions for Treatment How to Access Health Informa tion Online using Patient Portal and [employer]rd [employer] Apps Indication:BMI less than 19,adult Start:20-Nov-2021 Instruction Type:Patient Education Patient Instructions Indication:BMI 20.0-20.9, adult Start:28-Oct-2021 Instruction Type:Provider Instructions for Treatment How to Access Health Informa tion Online using Patient Portal and [employer]rd [employer] Apps Indication:BMI 20.0-20.9, adult Start:28-Oct-2021 Instruction Type:Patient Education Patient Instructions Indication:BMI 20.0-20.9, adult Start:24-Sep-2021 Instruction Type:Provider Instructions for Treatment How to Access Health Informa tion Online using Patient Portal and [employer]rd [employer] Apps Indication:BMI 20.0-20.9, adult Start:24-Sep-2021 Instruction Type:Patient Education Patient Instructions Indication:BMI less than 19,adult Start:16-Jul-2021 Instruction Type:Provider Instructions for Treatment How to Access Health Informa tion Online using Patient Portal and 3rd [employer] Apps Indication:BMI less than 19,adult Start:16-Jul-2021 Instruction Type:Patient Education Patient Instructions Indication:Non-smoker Start:19-Jun-2021 Instruction Type:Provider Instructions for Treatment How to Access Health Informa tion Online using Patient Portal and [employer]rd [employer] Apps Indication:Non-smoker Start:19-Jun-2021 Instruction Type:Patient Education Patient Instructions Indication:Non-smoker Start:25-Feb-2021 Instruction Type:Provider Instructions for Treatment How to Access Health Informa tion Online using Patient Portal and [employer] Apps Indication:Non-smoker Start:25-Feb-2021 Instruction Type:Patient Education Patient Instructions Indication:Non-smoker Start:18-Feb-2021 Instruction Type:Provider Instructions for Treatment How to Access Health Informa tion Online using Patient Portal and [employer]rd [employer] Apps Indication:Non-smoker Start:18-Feb-2021 Instruction Type:Patient Education How to access health informa tion online Indication:Non-smoker Start:13-Aug-2020 Instruction Type:Patient Education How to access health informa tion online - Detail Indication:Non-smoker Start:13-Aug-2020 Instruction Type:Patient Education Patient Instructions Indication:Non-smoker Start:13-Aug-2020 Instruction Type:Provider Instructions for Treatment How to access health informa tion online Indication:Non-smoker Start:29-Sep-2016 Instruction Type:Patient Education How to access health informa tion online - Detail Indication:Non-smoker Start:29-Sep-2016 Instruction Type:Patient Education Patient Instructions Indication:Non-smoker Start:29-Sep-2016 Instruction Type:Provider Instructions for Treatment Patient Instructions Indication:Irregular heartbeat Start:30-Jul-2014 Instruction Type:Provider Instructions for Treatment How to access health informa tion online Indication:Irregular heartbeat Start:28-Jun-2014 Instruction Type:Patient Education How to access health informa tion online - Detail Indication:Irregular heartbeat Start:28-Jun-2014 Instruction Type:Patient Education Patient Instructions Indication:Irregular heartbeat Start:28-Jun-2014 Instruction Type:Provider Instructions for Treatment [facility]; [facility] Work Phone: Instructions* Name Dates Details Patient Instructions Indication:Non-smoker Start:18-Mar-2023 Instruction Type:Provider Instructions for Treatment How to Access Health Informa tion Online using Patient Portal and [employer]rd [employer] Apps Indication:Non-smoker Start:18-Mar-2023 Instruction Type:Patient Education Patient Instructions Indication:Non-smoker Start:21-Feb-2023 Instruction Type:Provider Instructions for Treatment How to Access Health Informa tion Online using Patient Portal and [employer]rd [employer] Apps Indication:Non-smoker Start:21-Feb-2023 Instruction Type:Patient Education How to Access Health Informa tion Online using Patient Portal and [employer]rd [employer] Apps Indication:BMI less than 19,adult Start:20-Jan-2023 Instruction Type:Patient Education Patient Instructions Indication:BMI less than 19,adult Start:20-Jan-2023 Instruction Type:Provider Instructions for Treatment Patient Instructions Indication:BMI less than 19,adult Start:18-Nov-2022 Instruction Type:Provider Instructions for Treatment How to Access Health Informa tion Online using Patient Portal and [employer]rd [employer] Apps Indication:BMI less than 19,adult Start:18-Nov-2022 Instruction Type:Patient Education Patient Instructions Indication:Non-smoker Start:21-Oct-2022 Instruction Type:Provider Instructions for Treatment How to Access Health Informa tion Online using Patient Portal and [employer]rd [employer] Apps Indication:Non-smoker Start:21-Oct-2022 Instruction Type:Patient Education Patient Instructions Indication:BMI less than 19,adult Start:24-Mar-2022 Instruction Type:Provider Instructions for Treatment How to Access Health Informa tion Online using Patient Portal and [employer]rd [employer] Apps Indication:BMI less than 19,adult Start:24-Mar-2022 Instruction Type:Patient Education Patient Instructions Indication:BMI 20.0-20.9, adult Start:01-Mar-2022 Instruction Type:Provider Instructions for Treatment How to Access Health Informa tion Online using Patient Portal and [employer]rd [employer] Apps Indication:BMI 20.0-20.9, adult Start:01-Mar-2022 Instruction Type:Patient Education Patient Instructions Indication:BMI less than 19,adult Start:20-Nov-2021 Instruction Type:Provider Instructions for Treatment How to Access Health Informa tion Online using Patient Portal and [employer] Apps Indication:BMI less than 19,adult Start:20-Nov-2021 Instruction Type:Patient Education Patient Instructions Indication:BMI 20.0-20.9, adult Start:28-Oct-2021 Instruction Type:Provider Instructions for Treatment How to Access Health Informa tion Online using Patient Portal and [employer]rd [employer] Apps Indication:BMI 20.0-20.9, adult Start:28-Oct-2021 Instruction Type:Patient Education Patient Instructions Indication:BMI 20.0-20.9, adult Start:24-Sep-2021 Instruction Type:Provider Instructions for Treatment How to Access Health Informa tion Online using Patient Portal and [employer]rd [employer] Apps Indication:BMI 20.0-20.9, adult Start:24-Sep-2021 Instruction Type:Patient Education Patient Instructions Indication:BMI less than 19,adult Start:16-Jul-2021 Instruction Type:Provider Instructions for Treatment How to Access Health Informa tion Online using Patient Portal and [employer]rd [employer] Apps Indication:BMI less than 19,adult Start:16-Jul-2021 Instruction Type:Patient Education Patient Instructions Indication:Non-smoker Start:19-Jun-2021 Instruction Type:Provider Instructions for Treatment How to Access Health Informa tion Online using Patient Portal and [employer] Apps Indication:Non-smoker Start:19-Jun-2021 Instruction Type:Patient Education Patient Instructions Indication:Non-smoker Start:25-Feb-2021 Instruction Type:Provider Instructions for Treatment How to Access Health Informa tion Online using Patient Portal and [employer]rd [employer] Apps Indication:Non-smoker Start:25-Feb-2021 Instruction Type:Patient Education Patient Instructions Indication:Non-smoker Start:18-Feb-2021 Instruction Type:Provider Instructions for Treatment How to Access Health Informa tion Online using Patient Portal and [employer] Apps Indication:Non-smoker Start:18-Feb-2021 Instruction Type:Patient Education How to access health informa tion online Indication:Non-smoker Start:13-Aug-2020 Instruction Type:Patient Education How to access health informa tion online - Detail Indication:Non-smoker Start:13-Aug-2020 Instruction Type:Patient Education Patient Instructions Indication:Non-smoker Start:13-Aug-2020 Instruction Type:Provider Instructions for Treatment How to access health informa tion online Indication:Non-smoker Start:29-Sep-2016 Instruction Type:Patient Education How to access health informa tion online - Detail Indication:Non-smoker Start:29-Sep-2016 Instruction Type:Patient Education Patient Instructions Indication:Non-smoker Start:29-Sep-2016 Instruction Type:Provider Instructions for Treatment Patient Instructions Indication:Irregular heartbeat Start:30-Jul-2014 Instruction Type:Provider Instructions for Treatment How to access health informa tion online Indication:Irregular heartbeat Start:28-Jun-2014 Instruction Type:Patient Education How to access health informa tion online - Detail Indication:Irregular heartbeat Start:28-Jun-2014 Instruction Type:Patient Education Patient Instructions Indication:Irregular heartbeat Start:28-Jun-2014 Instruction Type:Provider Instructions for Treatment [facility]; [facility] Work Phone: reason for referral (narrative)No reason for referral information available[facility] Work Phone: Family History No Family History Records FoundUnknown Family Member Name Dates Details Father Comments:DM2, Heart dx Status:Active Mother Comments:non-hodgkins lympho ma Status:Active Sister 1 Comments:CVA Status:Active Unknown Family Member Name Dates Details Father Comments:DM2, Heart dx Status:Active Mother Comments:non-hodgkins lympho ma Status:Active Sister 1 Comments:CVA Status:Active Unknown Family Member Name Dates Details Father Comments:DM2, Heart dx Status:Active Mother Comments:non-hodgkins lympho ma Status:Active Sister 1 Comments:CVA Status:Active Unknown Family Member Name Dates Details Father Comments:DM2, Heart dx Status:Active Mother Comments:non-hodgkins lympho ma Status:Active Sister 1 Comments:CVA Status:Active Unknown Family Member Name Dates Details Father Comments:DM2, Heart dx Status:Active Mother Comments:non-hodgkins lympho ma Status:Active Sister 1 Comments:CVA Status:Active Unknown Family Member Name Dates Details Father Comments:DM2, Heart dx Status:Active Mother Comments:non-hodgkins lympho ma Status:Active Sister 1 Comments:CVA Status:Active Unknown Family Member Name Dates Details Father Comments:DM2, Heart dx Status:Active Mother Comments:non-hodgkins lympho ma Status:Active Sister 1 Comments:CVA Status:Active Unknown Family Member Name Dates Details Father Comments:DM2, Heart dx Status:Active Mother Comments:non-hodgkins lympho ma Status:Active Sister 1 Comments:CVA Status:Active Unknown Family Member Name Dates Details Father Comments:DM2, Heart dx Status:Active Mother Comments:non-hodgkins lympho ma Status:Active Sister 1 Comments:CVA Status:Active Unknown Family Member Name Dates Details Father Comments:DM2, Heart dx Status:Active Mother Comments:non-hodgkins lympho ma Status:Active Sister 1 Comments:CVA Status:Active Unknown Family Member Name Dates Details Father Comments:DM2, Heart dx Status:Active Mother Comments:non-hodgkins lympho ma Status:Active Sister 1 Comments:CVA Status:Active Unknown Family Member Name Dates Details Father Comments:DM2, Heart dx Status:Active Mother Comments:non-hodgkins lympho ma Status:Active Sister 1 Comments:CVA Status:Active Relationship Condition Age at Onset Recorded Date/T lizbeth mother Non-Hodgkin's lymphoma Unknown father Alzheimer's disease Unknown sister Malignant neoplasm of bone Unknown Cerebrovascular accident (CVA) Unknown grandfather Myocardial infarction Unknown Unknown Family Member Name Dates Details Father Comments:DM2, Heart dx Status:Active Mother Comments:non-hodgkins lympho ma Status:Active Sister 1 Comments:CVA Status:Active Unknown Family Member Name Dates Details Father Comments:DM2, Heart dx Status:Active Mother Comments:non-hodgkins lympho ma Status:Active Sister 1 Comments:CVA Status:Active Unknown Family Member Name Dates Details Father Comments:DM2, Heart dx Status:Active Mother Comments:non-hodgkins lympho ma Status:Active Sister 1 Comments:CVA Status:Active Unknown Family Member Name Dates Details Father Comments:DM2, Heart dx Status:Active Mother Comments:non-hodgkins lympho ma Status:Active Sister 1 Comments:CVA Status:Active Unknown Family Member Name Dates Details Father Comments:DM2, Heart dx Status:Active Mother Comments:non-hodgkins lympho ma Status:Active Sister 1 Comments:CVA Status:Active Unknown Family Member Name Dates Details Father Comments:DM2, Heart dx Status:Active Mother Comments:non-hodgkins lympho ma Status:Active Sister 1 Comments:CVA Status:Active Unknown Family Member Name Dates Details Father Comments:DM2, Heart dx Status:Active Mother Comments:non-hodgkins lympho ma Status:Active Sister 1 Comments:CVA Status:Active Unknown Family Member Name Dates Details Father Comments:DM2, Heart dx Status:Active Mother Comments:non-hodgkins lympho ma Status:Active Sister 1 Comments:CVA Status:Active Unknown Family Member Name Dates Details Father Comments:DM2, Heart dx Status:Active Mother Comments:non-hodgkins lympho ma Status:Active Sister 1 Comments:CVA Status:Active Unknown Family Member Name Dates Details Father Comments:DM2, Heart dx Status:Active Mother Comments:non-hodgkins lympho ma Status:Active Sister 1 Comments:CVA Status:Active Unknown Family Member Name Dates Details Father Comments:DM2, Heart dx Status:Active Mother Comments:non-hodgkins lympho ma Status:Active Sister 1 Comments:CVA Status:Active Unknown Family Member Name Dates Details Father Comments:DM2, Heart dx Status:Active Mother Comments:non-hodgkins lympho ma Status:Active Sister 1 Comments:CVA Status:Active Unknown Family Member Name Dates Details Father Comments:DM2, Heart dx Status:Active Mother Comments:non-hodgkins lympho ma Status:Active Sister 1 Comments:CVA Status:Active Unknown Family Member Name Dates Details Father Comments:DM2, Heart dx Status:Active Mother Comments:non-hodgkins lympho ma Status:Active Sister 1 Comments:CVA Status:Active Unknown Family Member Name Dates Details Father Comments:DM2, Heart dx Status:Active Mother Comments:non-hodgkins lympho ma Status:Active Sister 1 Comments:CVA Status:Active Relationship Condition Age at Onset Recorded Date/T lizbeth mother Non-Hodgkin's lymphoma Unknown father Alzheimer's disease Unknown sister Malignant neoplasm of bone Unknown Cerebrovascular accident (CVA) Unknown Parkinson's disease Unknown grandfather Myocardial infarction Unknown Instructions Name Dates Details How to access health informa tion online Indication:Non-smoker Start:13-Aug-2020 Instruction Type:Patient Education How to access health informa tion online - Detail Indication:Non-smoker Start:13-Aug-2020 Instruction Type:Patient Education Patient Instructions Indication:Non-smoker Start:13-Aug-2020 Instruction Type:Provider Instructions for Treatment How to access health informa tion online Indication:Non-smoker Start:29-Sep-2016 Instruction Type:Patient Education How to access health informa tion online - Detail Indication:Non-smoker Start:29-Sep-2016 Instruction Type:Patient Education Patient Instructions Indication:Non-smoker Start:29-Sep-2016 Instruction Type:Provider Instructions for Treatment Patient Instructions Indication:Irregular heartbeat Start:30-Jul-2014 Instruction Type:Provider Instructions for Treatment How to access health informa tion online Indication:Irregular heartbeat Start:28-Jun-2014 Instruction Type:Patient Education How to access health informa tion online - Detail Indication:Irregular heartbeat Start:28-Jun-2014 Instruction Type:Patient Education Patient Instructions Indication:Irregular heartbeat Start:28-Jun-2014 Instruction Type:Provider Instructions for Treatment Summary Purpose Advance Directives No Advanced Directives Records Found Advance Directive Response Recorded Date/ Time Living Will Yes October 05 4:49pm Power of Food Preparation Kitchen Aide Yes October 05, 2021 4:49pm Advance Directive Response Recorded Date/ Time Living Will Yes October 05 4:49pm Do you have a Healthcare Power of Food Preparation Kitchen Aide? Yes October 05, 2021 4:49pm Advance Directive Response Recorded Date/ Time Do you have a Healthcare Power of Food Preparation Kitchen Aide? Yes February 15, 2025 1:44am Advance Directive Response Recorded Date/ Time Do you have a Healthcare Power of Food Preparation Kitchen Aide? 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 Chief Complaint Admit Date 4 M FU September 17, 2024 11:23am ACUTE PAIN November 26, 2024 1:5 2pm PARKINSON'S December 18, 2024 10:4 8am EORDER December 18, 2024 11:3 5am Reason for Visit Admit Date Parkinson's disease September 17, 2024 11:23am Parkinson's disease November 26, 2024 1:5 2pm Iron deficiency December 18, 2024 10:4 8am Polyneuropathy December 18, 2024 10:4 8am Restless legs syndrome December 18, 2024 1 0:48am Parkinson's disease December 18, 2024 10:4 8am Chief Complaint Admit Date ACUTE PAIN November 26, 2024 1:5 2pm [facility] December 18, 2024 10:4 8am EORDER December 18, 2024 11:3 5am BLE; Paresthesia of skin January 02 6:38am BLE; Paresthesia of skin January 02 3:07pm 5 MO FU January 28, 2025 11:27 am MEDICATIONS February 14, 2025 1:31p m Reason for Visit Admit Date Parkinson's disease November 26, 2024 1:5 2pm Iron deficiency December 18, 2024 10:4 8am Polyneuropathy December 18, 2024 10:4 8am Restless legs syndrome December 18, 2024 1 0:48am Parkinson's disease December 18, 2024 10:4 8am Restless legs syndrome January 28, 2025 11 :27am Parkinson's disease January 28, 2025 11:27 am Right lumbar radiculopathy February 14 1:31pm Chief Complaint Admit Date ACUTE PAIN November 26, 2024 1:5 2pm [facility] December 18, 2024 10:4 8am EORDER December 18, 2024 11:3 5am BLE; Paresthesia of skin January 02 6:38am BLE; Paresthesia of skin January 02 3:07pm 5 MO FU January 28, 2025 11:27 am MEDICATIONS February 14, 2025 1:31p m TIA February 15, 2025 4:28a m Reason for Visit Admit Date Parkinson's disease November 26, 2024 1:5 2pm Iron deficiency December 18, 2024 10:4 8am Polyneuropathy December 18, 2024 10:4 8am Restless legs syndrome December 18, 2024 1 0:48am Parkinson's disease December 18, 2024 10:4 8am Restless legs syndrome January 28, 2025 11 :27am Parkinson's disease January 28, 2025 11:27 am Right lumbar radiculopathy February 14 1:31pm Gait instability February 15, 2025 4:28a m Weakness of right upper extremity February 152024 4:28am Parkinson's disease February 15, 2025 4:28a m Chief Complaint Admit Date ACUTE PAIN November 26, 2024 1:5 2pm [facility] December 18, 2024 10:4 8am EORDER December 18, 2024 11:3 5am BLE; Paresthesia of skin January 02 6:38am BLE; Paresthesia of skin January 02 3:07pm 5 MO FU January 28, 2025 11:27 am MEDICATIONS February 14, 2025 1:31p m TIA February 15, 2025 4:28a m TIA (cardiology) February 15, 2025 4:42a m Reason for Visit Admit Date Parkinson's disease November 26, 2024 1:5 2pm Iron deficiency December 18, 2024 10:4 8am Polyneuropathy December 18, 2024 10:4 8am Restless legs syndrome December 18, 2024 1 0:48am Parkinson's disease December 18, 2024 10:4 8am Restless legs syndrome January 28, 2025 11 :27am Parkinson's disease January 28, 2025 11:27 am Leg pain, bilateral February 14, 2025 1:31p m Restless legs syndrome February 14, 2025 1: 31pm Right lumbar radiculopathy February 14 1:31pm Parkinson's disease February 14, 2025 1:31p m Gait instability February 15, 2025 4:28a m Weakness of right upper extremity February 152024 4:28am Parkinson's disease February 15, 2025 4:28a m Chief Complaint Admit Date ACUTE PAIN November 26, 2024 1:5 2pm P[facility]SON'S December 18, 2024 10:4 8am EORDER December 18, 2024 11:3 5am BLE; Paresthesia of skin January 02 6:38am BLE; Paresthesia of skin January 02 3:07pm 5 MO FU January 28, 2025 11:27 am MEDICATIONS February 14, 2025 1:31p m TIA February 15, 2025 4:28a m TIA (cardiology) February 15, 2025 4:42a m TIA (cardiology) February 16, 2025 11:05 am Skin biopsy February 21, 2025 10:26 am Reason for Visit Admit Date Parkinson's disease November 26, 2024 1:5 2pm Iron deficiency December 18, 2024 10:4 8am Polyneuropathy December 18, 2024 10:4 8am Restless legs syndrome December 18, 2024 1 0:48am Parkinson's disease December 18, 2024 10:4 8am Restless legs syndrome January 28, 2025 11 :27am Parkinson's disease January 28, 2025 11:27 am Leg pain, bilateral February 14, 2025 1:31p m Restless legs syndrome February 14, 2025 1: 31pm Right lumbar radiculopathy February 14 1:31pm Parkinson's disease February 14, 2025 1:31p m Gait instability February 15, 2025 4:28a m Weakness of right upper extremity February 152024 4:28am Parkinson's disease February 15, 2025 4:28a m Encounter for procedure February 21, 2025 1 0:26am Chief Complaint Admit Date ACUTE PAIN November 26, 2024 1:5 2pm P[facility]SON'S December 18, 2024 10:4 8am EORDER December 18, 2024 11:3 5am BLE; Paresthesia of skin January 02 6:38am BLE; Paresthesia of skin January 02 3:07pm 5 MO FU January 28, 2025 11:27 am MEDICATIONS February 14, 2025 1:31p m TIA February 15, 2025 4:28a m TIA (cardiology) February 15, 2025 4:42a m TIA (cardiology) February 16, 2025 11:05 am Skin biopsy February 21, 2025 10:26 am RIGHT LUMBAR RADICULOPATHY,PAIN IN RIGHT THIGH March 11, 2025 8:13am Reason for Visit Admit Date Parkinson's disease November 26, 2024 1:5 2pm Iron deficiency December 18, 2024 10:4 8am Polyneuropathy December 18, 2024 10:4 8am Restless legs syndrome December 18, 2024 1 0:48am Parkinson's disease December 18, 2024 10:4 8am Restless legs syndrome January 28, 2025 11 :27am Parkinson's disease January 28, 2025 11:27 am Leg pain, bilateral February 14, 2025 1:31p m Restless legs syndrome February 14, 2025 1: 31pm Right lumbar radiculopathy February 14 1:31pm Parkinson's disease February 14, 2025 1:31p m Gait instability February 15, 2025 4:28a m Parkinson's disease February 15, 2025 4:28a m Weakness of right upper extremity February 152024 4:28am Leg pain, bilateral February 21, 2025 10:26 am Polyneuropathy February 21, 2025 10:26 am Encounter for procedure February 21, 2025 1 0:26am Chief Complaint Admit Date ACUTE PAIN November 26, 2024 1:5 2pm P[facility]SON'S December 18, 2024 10:4 8am EORDER December 18, 2024 11:3 5am BLE; Paresthesia of skin January 02 6:38am BLE; Paresthesia of skin January 02 3:07pm 5 MO FU January 28, 2025 11:27 am MEDICATIONS February 14, 2025 1:31p m TIA February 15, 2025 4:28a m TIA (cardiology) February 15, 2025 4:42a m TIA (cardiology) February 16, 2025 11:05 am Skin biopsy February 21, 2025 10:26 am RIGHT LUMBAR RADICULOPATHY,PAIN IN RIGHT THIGH March 11, 2025 8:13am TEST RESULTS March 19, 2025 11:23 am Chief Complaint Admit Date PARKINSON'S December 18, 2024 10:4 8am EORDER December 18, 2024 11:3 5am BLE; Paresthesia of skin January 02 6:38am BLE; Paresthesia of skin January 02 3:07pm 5 MO FU January 28, 2025 11:27 am MEDICATIONS February 14, 2025 1:31p m TIA February 15, 2025 4:28a m TIA (cardiology) February 15, 2025 4:42a m TIA (cardiology) February 16, 2025 11:05 am Skin biopsy February 21, 2025 10:26 am RIGHT LUMBAR RADICULOPATHY,PAIN IN RIGHT THIGH March 11, 2025 8:13am RT LEG PAIN March 11, 2025 9:27 am TEST RESULTS March 19, 2025 11:23 am SCREENING April 05, 2025 11:5 3am 2 M FU April 08, 2025 1:58 pm Reason for Visit Admit Date Iron deficiency December 18, 2024 10:4 8am Polyneuropathy December 18, 2024 10:4 8am Restless legs syndrome December 18, 2024 1 0:48am Parkinson's disease December 18, 2024 10:4 8am Restless legs syndrome January 28, 2025 11 :27am Parkinson's disease January 28, 2025 11:27 am Leg pain, bilateral February 14, 2025 1:31p m Restless legs syndrome February 14, 2025 1: 31pm Right lumbar radiculopathy February 14 1:31pm Parkinson's disease February 14, 2025 1:31p m Gait instability February 15, 2025 4:28a m Parkinson's disease February 15, 2025 4:28a m Weakness of right upper extremity February 152024 4:28am Leg pain, bilateral February 21, 2025 10:26 am Polyneuropathy February 21, 2025 10:26 am Encounter for procedure February 21, 2025 1 0:26am Leg pain, bilateral March 19, 2025 11:23 am Parkinson's disease March 19, 2025 11:23 am Chief Complaint Admit Date BLE; Paresthesia of skin January 02 6:38am BLE; Paresthesia of skin January 02 3:07pm 5 MO FU January 28, 2025 11:27 am MEDICATIONS February 14, 2025 1:31p m TIA February 15, 2025 4:28a m TIA (cardiology) February 15, 2025 4:42a m TIA (cardiology) February 16, 2025 11:05 am Skin biopsy February 21, 2025 10:26 am RIGHT LUMBAR RADICULOPATHY,PAIN IN RIGHT THIGH March 11, 2025 8:13am RT LEG PAIN March 11, 2025 9:27 am TEST RESULTS March 19, 2025 11:23 am SCREENING April 05, 2025 11:5 3am 2 M FU April 08, 2025 1:58 pm panic attacks, anxiety May 02, 2025 1:48pm Reason for Visit Admit Date Restless legs syndrome January 28, 2025 11 :27am Parkinson's disease January 28, 2025 11:27 am Leg pain, bilateral February 14, 2025 1:31p m Restless legs syndrome February 14, 2025 1: 31pm Right lumbar radiculopathy February 14 1:31pm Parkinson's disease February 14, 2025 1:31p m Gait instability February 15, 2025 4:28a m Parkinson's disease February 15, 2025 4:28a m Weakness of right upper extremity February 152024 4:28am Leg pain, bilateral February 21, 2025 10:26 am Polyneuropathy February 21, 2025 10:26 am Encounter for procedure February 21, 2025 1 0:26am Leg pain, bilateral March 19, 2025 11:23 am Parkinson's disease March 19, 2025 11:23 am Leg pain, bilateral April 08, 2025 1:58 pm Parkinson's disease April 08, 2025 1:58 pm Chief Complaint Admit Date 5 MO FU January 28, 2025 11:27 am MEDICATIONS February 14, 2025 1:31p m TIA February 15, 2025 4:28a m TIA (cardiology) February 15, 2025 4:42a m TIA (cardiology) February 16, 2025 11:05 am Skin biopsy February 21, 2025 10:26 am RIGHT LUMBAR RADICULOPATHY,PAIN IN RIGHT THIGH March 11, 2025 8:13am RT LEG PAIN March 11, 2025 9:27 am TEST RESULTS March 19, 2025 11:23 am SCREENING April 05, 2025 11:5 3am 2 M FU April 08, 2025 1:58 pm panic attacks, anxiety May 02, 2025 1:48pm CONCERN FOR UTI May 04, 2025 10 :38am Reason for Visit Admit Date Restless legs syndrome January 28, 2025 11 :27am Parkinson's disease January 28, 2025 11:27 am Leg pain, bilateral February 14, 2025 1:31p m Restless legs syndrome February 14, 2025 1: 31pm Right lumbar radiculopathy February 14 1:31pm Parkinson's disease February 14, 2025 1:31p m Gait instability February 15, 2025 4:28a m Parkinson's disease February 15, 2025 4:28a m Weakness of right upper extremity February 152024 4:28am Leg pain, bilateral February 21, 2025 10:26 am Polyneuropathy February 21, 2025 10:26 am Encounter for procedure February 21, 2025 1 0:26am Leg pain, bilateral March 19, 2025 11:23 am Parkinson's disease March 19, 2025 11:23 am Leg pain, bilateral April 08, 2025 1:58 pm Parkinson's disease April 08, 2025 1:58 pm Anxiety May 02, 2025 1: 48pm Leg pain, bilateral May 02, 2025 1: 48pm Panic attacks May 02, 2025 1: 48pm Parkinson's disease May 02, 2025 1: 48pm Urinary frequency May 04, 2025 10 :38am Additional Source Comments Source Comments (unrecognize d section and content) In the event this informatio n is protected by the Federal Confidentiality of Alcohol and Drug Abuse Patient Records regulations: The Federal rules restrict any use of the information to criminally investigate or prosecute any alcohol or drug abuse patient.[facility] INFORMATION SOURCE (unrecogn ized section and content) DATE CREATED AUTHOR 09/24/2021 [facility] Mariela Pagan DATE CREATED AUTHOR AUTHOR'S ORGANIZ ATION 01/21/2023 [facility] DATE CREATED AUTHOR AUTHOR'S ORGANIZ ATION [facility] Goals (unrecognized section and content) Goals may be documented in a n alternate sectionGoals may be documented in an alternate sectionGoals may be documented in an alternate sectionGoals may be documented in an alternate sectionGoals may be documented in an alternate sectionGoals may be documented in an alternate sectionGoals may be documented in an alternate sectionGoals may be documented in an alternate sectionGoals may be documented in an alternate sectionGoals may be documented in an alternate sectionGoals may be documented in an alternate sectionGoals may be documented in an alternate sectionGoals may be documented in an alternate sectionGoals may be documented in an alternate sectionGoals may be documented in an alternate section Care Teams (unrecognized sec tion and content) Team Status: Active Member Role Status Dates Dr. Eleanor Armstrong DO Family Provider Active Dr. Eleanor Armstrong DO Primary Care Provider Active Team Status: Inactive Member Role Status Dates Dr. Eleanor Armstrong DO Primary Care Provider Active Start: September 17, 2024 End: September 17, 2024 Dr. Eleanor Armstrong DO Referring Provider Active Start: September 17, 2024 End: September 17, 2024 Dr. Jac Truong MD Attending Provider Active Start: September 17, 2024 End: September 17, 2024 Team Status: Inactive Member Role Status Dates Dr. Eleanor Armstrong DO Primary Care Provider Active Start: November 26, 2024 End: November 26, 2024 Dr. Eleanor Armstrong DO Referring Provider Active Start: November 26, 2024 End: November 26, 2024 Dr. Jac Truong MD Attending Provider Active Start: November 26, 2024 End: November 26, 2024 Team Status: Inactive Member Role Status Dates Dr. Eleanor Armstrong DO Primary Care Provider Active Start: December 18, 2024 End: December 18, 2024 Dr. Eleanor Armstrong DO Referring Provider Active Start: December 18, 2024 End: December 18, 2024 Dr. Jac Truong MD Attending Provider Active Start: December 18, 2024 End: December 18, 2024 Team Status: Inactive Member Role Status Dates Dr. Eleanor Armstrong DO Primary Care Provider Active Start: December 18, 2024 End: December 18, 2024 Dr. Jac Truong MD Attending Provider Active Start: December 18, 2024 End: December 18, 2024 Dr. Jac Truong MD Referring Provider Active Start: December 18, 2024 End: December 18, 2024 Team Status: Active Member Role Status Dates Dr. Eleanor Armstrong DO Primary Care Provider Active Team Status: Inactive Member Role Status Dates Dr. Eleanor Armstrong DO Primary Care Provider Active Start: January 02, 2025 End: January 02, 2025 Dr. Jalil Banerjee DPM Attending Provider Active Start: January 02, 2025 End: January 02, 2025 Dr. Jalil Banerjee DPM Referring Provider Active Start: January 02, 2025 End: January 02, 2025 Team Status: Active Member Role Status Dates Dr. Eleanor Armstrong DO Primary Care Provider Active Start: January 02, 2025 Dr. Jalil Banerjee DPM Referring Provider Active Start: January 02, 2025 Dr. Jalil Banerjee DPM Other Provider Active S tart: January 02, 2025 Dr. Eloy Montgomery MD Attending Provider Active S tart: January 02, 2025 Team Status: Inactive Member Role Status Dates Dr. Eleanor Armstrong DO Primary Care Provider Active Start: January 28, 2025 End: January 28, 2025 Dr. Eleanor Armstrong DO Referring Provider Active Start: January 28, 2025 End: January 28, 2025 Dr. Jac Truong MD Attending Provider Active Start: January 28, 2025 End: January 28, 2025 Team Status: Inactive Member Role Status Dates Dr. Eleanor Armstrong DO Primary Care Provider Active Start: February 14, 2025 End: February 14, 2025 Dr. Eleanor Armstrong DO Referring Provider Active Start: February 14, 2025 End: February 14, 2025 Dr. Jac Truong MD Attending Provider Active Start: February 14, 2025 End: February 14, 2025 Team Status: Active Member Role Status Dates Dr. Eleanor Armstrong DO Primary Care Provider Active Start: February 15, 2025 Dr. Drew Dejesus DO Emergency Provider Active Start : February 15, 2025 Dr. Marvin Becerril MD Admit Provider Active Start: February 15, 2025 Dr. Marvin Becerril MD Attending Provider Active Start: February 15, 2025 Team Status: Inactive Member Role Status Dates Dr. Eleanor Armstrong DO Primary Care Provider Active Start: February 15, 2025 End: February 16, 2025 Dr. Drew Dejesus DO Emergency Provider Active Start : February 15, 2025 End: February 16, 2025 Dr. Marvin Becerril MD Admit Provider Active Start: February 15, 2025 End: February 16, 2025 Dr. Marvin Becerril MD Other Provider Active Start: February 15, 2025 End: February 16, 2025 Sheng Galvin MD Other Provider Active Start: Ut 2024 End: February 16, 2025 Dr. Hansa Pepper MD Other Provider Active Start: February 15, 2025 End: February 16, 2025 Karen Perkins MD Other Provider Active Start : February 15, 2025 End: February 16, 2025 Dr. Mirna Lira DO Other Provider Active St art: February 15, 2025 End: February 16, 2025 Dr. Joselyn De Guzman MD Other Provider Active Start: February 15, 2025 End: February 16, 2025 Dr. Deo Duran MD Other Provider Active Sta rt: February 15, 2025 End: February 16, 2025 Dr. Danyell Mg MD Other Provider Active Start : February 15, 2025 End: February 16, 2025 Dr. Zaki Costa MD Other Provider Active Start: February 15, 2025 End: February 16, 2025 Dr. Jim Kingsley MD Other Provider Active Start : February 15, 2025 End: February 16, 2025 Dr. Esteban Jernigan MD Other Provider Active Sta rt: February 15, 2025 End: February 16, 2025 Leilani Zapata MD Other Provider Active Start : February 15, 2025 End: February 16, 2025 Dr. Coleman Lakhani MD Other Provider Active St art: February 15, 2025 End: February 16, 2025 Dr. Tisha Novoa MD Other Provider Active Start : February 15, 2025 End: February 16, 2025 Dr. Rob Nguyen MD Other Provider Active Sta rt: February 15, 2025 End: February 16, 2025 Dr. Kathe Weathers MD Other Provider Active Start: February 15, 2025 End: February 16, 2025 Dr. Joe Block MD Other Provider Active St art: February 15, 2025 End: February 16, 2025 Dr. Chrissie Egan MD Other Provider Active Star t: February 15, 2025 End: February 16, 2025 Dr. Bjorn Lockhart MD Other Provider Active St art: February 15, 2025 End: February 16, 2025 Dr. Trinh Viveros MD Other Provider Active Start: February 15, 2025 End: February 16, 2025 Echo Castro MD Other Provider Active Start: February 15, 2025 End: February 16, 2025 Dr. Eliel Reeves MD Attending Provider Active Start: February 15, 2025 End: February 16, 2025 Dr. Jes Ortiz MD Other Provider Active St art: February 15, 2025 End: February 16, 2025 Team Status: Active Member Role Status Dates Dr. Eleanor Armstrong , DO Primary Care Provider Active Start: February 15, 2025 Dr. Drew Dejesus , DO Emergency Provider Active Start : February 15, 2025 Dr. Marvin Becerril MD Admit Provider Active Start: February 15, 2025 Dr. Marvin Becerril MD Attending Provider Active Start: February 15, 2025 Dr. Marvin Becerril MD Other Provider Active Start: February 15, 2025 Team Status: Active Member Role Status Dates Dr. Eleanor Armstrong DO Primary Care Provider Active Start: February 15, 2025 Dr. Carolina Centeno MD Attending Provider Active Start: February 15, 2025 Team Status: Active Member Role Status Dates Dr. Eleanor Armstrong DO Primary Care Provider Active Start: February 16, 2025 Dr. Drew Dejesus , DO Emergency Provider Active Start : February 16, 2025 Dr. Marvin Becerril MD Admit Provider Active Start: February 16, 2025 Dr. Marvin Becerril MD Other Provider Active Start: February 16, 2025 Sheng Galvin MD Other Provider Active Start: Ut 2024 Dr. Hansa Pepper MD Other Provider Active Start: February 16, 2025 Karen Perkins MD Other Provider Active Start : February 16, 2025 Dr. Mirna Lira , DO Other Provider Active St art: February 16, 2025 Dr. Joselyn De Guzman MD Other Provider Active Start: February 16, 2025 Dr. Deo Duran MD Other Provider Active Sta rt: February 16, 2025 Dr. Danyell Mg MD Other Provider Active Start : February 16, 2025 Dr. Zaki Costa MD Other Provider Active Start: February 16, 2025 Dr. Jim Kingsley MD Other Provider Active Start : February 16, 2025 Dr. Esteban Jernigan MD Other Provider Active Sta rt: February 16, 2025 Leilani Zapata MD Other Provider Active Start : February 16, 2025 Dr. Coleman Lakhani MD Other Provider Active St art: February 16, 2025 Dr. Tisha Novoa MD Other Provider Active Start : February 16, 2025 Dr. Rob Nguyen MD Other Provider Active Sta rt: February 16, 2025 Dr. Kathe Weathers MD Other Provider Active Start: February 16, 2025 Dr. Joe Block MD Other Provider Active St art: February 16, 2025 Dr. Chrissie Egan MD Other Provider Active Star t: February 16, 2025 Dr. Bjorn Lockhart MD Other Provider Active St art: February 16, 2025 Dr. Trinh Viveros MD Other Provider Active Start: February 16, 2025 Echo Castro MD Other Provider Active Start: February 16, 2025 Dr. Eliel Reeves MD Attending Provider Active Start: February 16, 2025 Dr. Eliel Reeves MD Other Provider Active Sta rt: February 16, 2025 Dr. Jes Ortiz MD Other Provider Active St art: February 16, 2025 Team Status: Inactive Member Role Status Dates Dr. Eleanor Armstrong DO Primary Care Provider Active Start: February 21, 2025 End: February 21, 2025 Dr. Eleanor Armstrong DO Referring Provider Active Start: February 21, 2025 End: February 21, 2025 Dr. Jac Truong MD Attending Provider Active Start: February 21, 2025 End: February 21, 2025 Team Status: Active Member Role/Relationship Status Dates Dr. Eleaonr Armstrong DO Primary Care Provider Active Team Status: Inactive Member Role/Relationship Status Dates Dr. Eleanor Armstrong DO Primary Care Provider Active Start: November 26, 2024 End: November 26, 2024 Dr. Eleanor Armstrong DO Referring Provider Active Start: November 26, 2024 End: November 26, 2024 Dr. Jac Truong MD Attending Provider Active Start: November 26, 2024 End: November 26, 2024 Team Status: Inactive Member Role/Relationship Status Dates Dr. Eleanor Armstrong DO Primary Care Provider Active Start: December 18, 2024 End: December 18, 2024 Dr. Eleanor Armstrong DO Referring Provider Active Start: December 18, 2024 End: December 18, 2024 Dr. Jac Truong MD Attending Provider Active Start: December 18, 2024 End: December 18, 2024 Team Status: Inactive Member Role/Relationship Status Dates Dr. Eleanor Armstrong DO Primary Care Provider Active Start: December 18, 2024 End: December 18, 2024 Dr. Jac Truong MD Attending Provider Active Start: December 18, 2024 End: December 18, 2024 Dr. Jac Truong MD Referring Provider Active Start: December 18, 2024 End: December 18, 2024 Team Status: Inactive Member Role/Relationship Status Dates Dr. Eleanor Armstrong DO Primary Care Provider Active Start: January 02, 2025 End: January 02, 2025 Dr. Jalil Banerjee DPM Attending Provider Active Start: January 02, 2025 End: January 02, 2025 Dr. Jalil Banerjee DPM Referring Provider Active Start: January 02, 2025 End: January 02, 2025 Team Status: Active Member Role/Relationship Status Dates Dr. Eleanor Armstrong DO Primary Care Provider Active Start: January 02, 2025 Dr. Jalil Banerjee DPM Referring Provider Active Start: January 02, 2025 Dr. Jalil Banerjee DPM Other Provider Active S tart: January 02, 2025 Dr. Eloy Montgomery MD Attending Provider Active S tart: January 02, 2025 Team Status: Inactive Member Role/Relationship Status Dates Dr. Eleanor Armstrong DO Primary Care Provider Active Start: January 28, 2025 End: January 28, 2025 Dr. Eleanor Armstrong DO Referring Provider Active Start: January 28, 2025 End: January 28, 2025 Dr. Jac Truong MD Attending Provider Active Start: January 28, 2025 End: January 28, 2025 Team Status: Inactive Member Role/Relationship Status Dates Dr. Eleanor Armstrong DO Primary Care Provider Active Start: February 14, 2025 End: February 14, 2025 Dr. Eleanor Armstrong DO Referring Provider Active Start: February 14, 2025 End: February 14, 2025 Dr. Jac Truong MD Attending Provider Active Start: February 14, 2025 End: February 14, 2025 Team Status: Inactive Member Role/Relationship Status Dates Dr. Eleanor Armstrong DO Primary Care Provider Active Start: February 15, 2025 End: February 16, 2025 Dr. Drew Dejesus , Emergency Provider Active Start : February 15, 2025 End: February 16, 2025 Dr. Marvin Becerril MD Admit Provider Active Start: February 15, 2025 End: February 16, 2025 Dr. Marvin Becerril MD Other Provider Active Start: February 15, 2025 End: February 16, 2025 Sheng Galvin MD Other Provider Active Start: Ma 2024 End: February 16, 2025 Dr. Hansa Pepper MD Other Provider Active Start: February 15, 2025 End: February 16, 2025 Karen Perkins MD Other Provider Active Start : February 15, 2025 End: February 16, 2025 Dr. Mirna Lira DO Other Provider Active St art: February 15, 2025 End: February 16, 2025 Dr. Joselyn De Guzman MD Other Provider Active Start: February 15, 2025 End: February 16, 2025 Dr. Deo Duran MD Other Provider Active Sta rt: February 15, 2025 End: February 16, 2025 Dr. Danyell Mg MD Other Provider Active Start : February 15, 2025 End: February 16, 2025 Dr. Zaki Costa MD Other Provider Active Start: February 15, 2025 End: February 16, 2025 Dr. Jim Kingsley MD Other Provider Active Start : February 15, 2025 End: February 16, 2025 Dr. Esteban Jernigan MD Other Provider Active Sta rt: February 15, 2025 End: February 16, 2025 Leilani Zapata MD Other Provider Active Start : February 15, 2025 End: February 16, 2025 Dr. Coleman Lakhani MD Other Provider Active St art: February 15, 2025 End: February 16, 2025 Dr. Tisha Novoa MD Other Provider Active Start : February 15, 2025 End: February 16, 2025 Dr. Rob Nguyen MD Other Provider Active Sta rt: February 15, 2025 End: February 16, 2025 Dr. Kathe Weathers MD Other Provider Active Start: February 15, 2025 End: February 16, 2025 Dr. Joe Block MD Other Provider Active St art: February 15, 2025 End: February 16, 2025 Dr. Chrissie Egan MD Other Provider Active Star t: February 15, 2025 End: February 16, 2025 Dr. Bjorn Lockhart MD Other Provider Active St art: February 15, 2025 End: February 16, 2025 Dr. Trinh Viveros MD Other Provider Active Start: February 15, 2025 End: February 16, 2025 Echo Castro MD Other Provider Active Start: February 15, 2025 End: February 16, 2025 Dr. Eliel Reeves MD Attending Provider Active Start: February 15, 2025 End: February 16, 2025 Dr. Jes Ortiz MD Other Provider Active St art: February 15, 2025 End: February 16, 2025 Team Status: Active Member Role/Relationship Status Dates Dr. Eleanor Armstrong DO Primary Care Provider Active Start: February 15, 2025 Dr. Drew Dejesus DO Emergency Provider Active Start : February 15, 2025 Dr. Marvin Becerril MD Admit Provider Active Start: February 15, 2025 Dr. Marvin Becerril MD Attending Provider Active Start: February 15, 2025 Dr. Marvin Becerril MD Other Provider Active Start: February 15, 2025 Team Status: Active Member Role/Relationship Status Dates Dr. Eleanor Armstrong DO Primary Care Provider Active Start: February 15, 2025 Dr. Carolina Centeno MD Attending Provider Active Start: February 15, 2025 Team Status: Active Member Role/Relationship Status Dates Dr. Eleanor Armstrong , DO Primary Care Provider Active Start: February 16, 2025 Dr. Drew Dejesus DO Emergency Provider Active Start : February 16, 2025 Dr. Marvin Becerril MD Admit Provider Active Start: February 16, 2025 Dr. Marvin Becerril MD Other Provider Active Start: February 16, 2025 Sheng Galvin MD Other Provider Active Start: Ut 2024 Dr. Hansa Pepper MD Other Provider Active Start: February 16, 2025 Karen Perkins MD Other Provider Active Start : February 16, 2025 Dr. Mirna Lira DO Other Provider Active St art: February 16, 2025 Dr. Joselyn De Guzman MD Other Provider Active Start: February 16, 2025 Dr. Deo Duran MD Other Provider Active Sta rt: February 16, 2025 Dr. Danyell Mg MD Other Provider Active Start : February 16, 2025 Dr. Zaki Costa MD Other Provider Active Start: February 16, 2025 Dr. Jim Kingsley MD Other Provider Active Start : February 16, 2025 Dr. Esteban Jernigan MD Other Provider Active Sta rt: February 16, 2025 Leilani Zapata MD Other Provider Active Start : February 16, 2025 Dr. Coleman Lakhani MD Other Provider Active St art: February 16, 2025 Dr. Tisha Novoa MD Other Provider Active Start : February 16, 2025 Dr. Rob Nguyen MD Other Provider Active Sta rt: February 16, 2025 Dr. Kathe Weathers MD Other Provider Active Start: February 16, 2025 Dr. Joe Block MD Other Provider Active St art: February 16, 2025 Dr. Chrissie Egan MD Other Provider Active Star t: February 16, 2025 Dr. Bjorn Lockhart MD Other Provider Active St art: February 16, 2025 Dr. Trinh Viveros MD Other Provider Active Start: February 16, 2025 Echo Castro MD Other Provider Active Start: February 16, 2025 Dr. Eliel Reeves MD Attending Provider Active Start: February 16, 2025 Dr. Eliel Reeves MD Other Provider Active Sta rt: February 16, 2025 Dr. Jes Ortiz MD Other Provider Active St art: February 16, 2025 Team Status: Inactive Member Role/Relationship Status Dates Dr. Eleanor Armstrong DO Primary Care Provider Active Start: February 21, 2025 End: February 21, 2025 Dr. Eleanor Armstrong DO Referring Provider Active Start: February 21, 2025 End: February 21, 2025 Dr. Jac Truong MD Attending Provider Active Start: February 21, 2025 End: February 21, 2025 Team Status: Inactive Member Role/Relationship Status Dates Dr. Eleanor Armstrong DO Primary Care Provider Active Start: March 11, 2025 End: March 11, 2025 Dr. Jac Truong MD Attending Provider Active Start: March 11, 2025 End: March 11, 2025 Dr. Jac Truong MD Referring Provider Active Start: March 11, 2025 End: March 11, 2025 Team Status: Inactive Member Role/Relationship Status Dates Dr. Eleanor Armstrong DO Primary Care Provider Active Start: March 19, 2025 End: March 19, 2025 Dr. Eleanor Armstrong DO Referring Provider Active Start: March 19, 2025 End: March 19, 2025 Dr. Jac Truong MD Attending Provider Active Start: March 19, 2025 End: March 19, 2025 Team Status: Inactive Member Role/Relationship Status Dates Dr. Eleanor Armstrong DO Primary Care Provider Active Start: December 18, 2024 End: December 18, 2024 Dr. Eleanor Armstrong DO Referring Provider Active Start: December 18, 2024 End: December 18, 2024 Dr. Jac Truong MD Attending Provider Active Start: December 18, 2024 End: December 18, 2024 Team Status: Inactive Member Role/Relationship Status Dates Dr. Eleanor Armstrong DO Primary Care Provider Active Start: December 18, 2024 End: December 18, 2024 Dr. Jac Truong MD Attending Provider Active Start: December 18, 2024 End: December 18, 2024 Dr. Jac Truong MD Referring Provider Active Start: December 18, 2024 End: December 18, 2024 Team Status: Inactive Member Role/Relationship Status Dates Dr. Eleanor Armstrong DO Primary Care Provider Active Start: January 02, 2025 End: January 02, 2025 Dr. Jalil Banerjee DPM Attending Provider Active Start: January 02, 2025 End: January 02, 2025 Dr. Jalil Banerjee DPM Referring Provider Active Start: January 02, 2025 End: January 02, 2025 Team Status: Active Member Role/Relationship Status Dates Dr. Eleanor Armstrong DO Primary Care Provider Active Start: January 02, 2025 Dr. Jalil Banerjee DPM Referring Provider Active Start: January 02, 2025 Dr. Jalil Banerjee DPM Other Provider Active S tart: January 02, 2025 Dr. Eloy Montgomery MD Attending Provider Active S tart: January 02, 2025 Team Status: Inactive Member Role/Relationship Status Dates Dr. Eleanor Armstrong DO Primary Care Provider Active Start: January 28, 2025 End: January 28, 2025 Dr. Eleanor Armstrong DO Referring Provider Active Start: January 28, 2025 End: January 28, 2025 Dr. Jac Truong MD Attending Provider Active Start: January 28, 2025 End: January 28, 2025 Team Status: Inactive Member Role/Relationship Status Dates Dr. Eleanor Armstrong DO Primary Care Provider Active Start: February 14, 2025 End: February 14, 2025 Dr. Eleanor Armstrong DO Referring Provider Active Start: February 14, 2025 End: February 14, 2025 Dr. Jac Truong MD Attending Provider Active Start: February 14, 2025 End: February 14, 2025 Team Status: Inactive Member Role/Relationship Status Dates Dr. Eleanor Armstrong DO Primary Care Provider Active Start: February 15, 2025 End: February 16, 2025 Dr. Drew Dejesus DO Emergency Provider Active Start : February 15, 2025 End: February 16, 2025 Dr. Marvin Becerril MD Admit Provider Active Start: February 15, 2025 End: February 16, 2025 Dr. Marvin Becerril MD Other Provider Active Start: February 15, 2025 End: February 16, 2025 Sheng Galvin MD Other Provider Active Start: Brodie 2024 End: February 16, 2025 Dr. Hansa Pepper MD Other Provider Active Start: February 15, 2025 End: February 16, 2025 Karen Perkins MD Other Provider Active Start : February 15, 2025 End: February 16, 2025 Dr. Mirna Lira DO Other Provider Active St art: February 15, 2025 End: February 16, 2025 Dr. Joselyn De Guzman MD Other Provider Active Start: February 15, 2025 End: February 16, 2025 Dr. Deo Duran MD Other Provider Active Sta rt: February 15, 2025 End: February 16, 2025 Dr. Danyell Mg MD Other Provider Active Start : February 15, 2025 End: February 16, 2025 Dr. Zaki Costa MD Other Provider Active Start: February 15, 2025 End: February 16, 2025 Dr. Jim Kingsley MD Other Provider Active Start : February 15, 2025 End: February 16, 2025 Dr. Esteban Jernigan MD Other Provider Active Sta rt: February 15, 2025 End: February 16, 2025 Leilani Zapata MD Other Provider Active Start : February 15, 2025 End: February 16, 2025 Dr. Coleman Lakhani MD Other Provider Active St art: February 15, 2025 End: February 16, 2025 Dr. Tisha Novoa MD Other Provider Active Start : February 15, 2025 End: February 16, 2025 Dr. Rob Nguyen MD Other Provider Active Sta rt: February 15, 2025 End: February 16, 2025 Dr. Kathe Weathers MD Other Provider Active Start: February 15, 2025 End: February 16, 2025 Dr. Joe Block MD Other Provider Active St art: February 15, 2025 End: February 16, 2025 Dr. Chrissie Egan MD Other Provider Active Star t: February 15, 2025 End: February 16, 2025 Dr. Bjorn Lockhart MD Other Provider Active St art: February 15, 2025 End: February 16, 2025 Dr. Trinh Viveros MD Other Provider Active Start: February 15, 2025 End: February 16, 2025 Echo Castro MD Other Provider Active Start: February 15, 2025 End: February 16, 2025 Dr. Eliel Reeves MD Attending Provider Active Start: February 15, 2025 End: February 16, 2025 Dr. Jes Ortiz MD Other Provider Active St art: February 15, 2025 End: February 16, 2025 Team Status: Active Member Role/Relationship Status Dates Dr. Eleanor Armstrong DO Primary Care Provider Active Start: February 15, 2025 Dr. Drew Dejesus , DO Emergency Provider Active Start : February 15, 2025 Dr. Marvin Becerril MD Admit Provider Active Start: February 15, 2025 Dr. Marvin Becerril MD Attending Provider Active Start: February 15, 2025 Dr. Marvin Becerril MD Other Provider Active Start: February 15, 2025 Team Status: Active Member Role/Relationship Status Dates Dr. Eleanor Armstrong DO Primary Care Provider Active Start: February 15, 2025 Dr. Carolina Centeno MD Attending Provider Active Start: February 15, 2025 Team Status: Active Member Role/Relationship Status Dates Dr. Eleanor Armstrong DO Primary Care Provider Active Start: February 16, 2025 Dr. Drew Dejesus , DO Emergency Provider Active Start : February 16, 2025 Dr. Marvin Becerril MD Admit Provider Active Start: February 16, 2025 Dr. Marvin Becerril MD Other Provider Active Start: February 16, 2025 Sheng Galvin MD Other Provider Active Start: Ut 2024 Dr. Hansa Pepper MD Other Provider Active Start: February 16, 2025 aKren Perkins MD Other Provider Active Start : February 16, 2025 Dr. Mirna Lira , DO Other Provider Active St art: February 16, 2025 Dr. Joselyn De Guzman MD Other Provider Active Start: February 16, 2025 Dr. Deo Duran MD Other Provider Active Sta rt: February 16, 2025 Dr. Danyell Mg MD Other Provider Active Start : February 16, 2025 Dr. Zaki Costa MD Other Provider Active Start: February 16, 2025 Dr. Jim Kingsley MD Other Provider Active Start : February 16, 2025 Dr. Esteban Jernigan MD Other Provider Active Sta rt: February 16, 2025 Leilani Zapata MD Other Provider Active Start : February 16, 2025 Dr. Coleman Lakhani MD Other Provider Active St art: February 16, 2025 Dr. Tisha Novoa MD Other Provider Active Start : February 16, 2025 Dr. Rob Nguyen MD Other Provider Active Sta rt: February 16, 2025 Dr. Kathe Weathers MD Other Provider Active Start: February 16, 2025 Dr. Joe Block MD Other Provider Active St art: February 16, 2025 Dr. Chrissie Egan MD Other Provider Active Star t: February 16, 2025 Dr. Bjorn Lockhart MD Other Provider Active St art: February 16, 2025 Dr. Trinh Viveros MD Other Provider Active Start: February 16, 2025 Echo Castro MD Other Provider Active Start: February 16, 2025 Dr. Eliel Reeves MD Attending Provider Active Start: February 16, 2025 Dr. Eliel Reeves MD Other Provider Active Sta rt: February 16, 2025 Dr. Jes Ortiz MD Other Provider Active St art: February 16, 2025 Team Status: Inactive Member Role/Relationship Status Dates Dr. Eleanor Armstrong DO Primary Care Provider Active Start: February 21, 2025 End: February 21, 2025 Dr. Jac Truong MD Attending Provider Active Start: February 21, 2025 End: February 21, 2025 Dr. Jac Truong MD Referring Provider Active Start: February 21, 2025 End: February 21, 2025 Team Status: Inactive Member Role/Relationship Status Dates Dr. Eleanor Armstrong DO Primary Care Provider Active Start: March 11, 2025 End: March 11, 2025 Dr. Jac Truong MD Attending Provider Active Start: March 11, 2025 End: March 11, 2025 Dr. Jac Truong MD Referring Provider Active Start: March 11, 2025 End: March 11, 2025 Team Status: Active Member Role/Relationship Status Dates Dr. Harris Keating MD Attending Provider Active Start: March 11, 2025 Dr. Jac Truong MD Referring Provider Active Start: March 11, 2025 Team Status: Active Member Role/Relationship Status Dates Dr. Eleanor Armstrong DO Primary Care Provider Active Start: April 05, 2025 Dr. Eleanor Armstrong DO Attending Provider Active Start: April 05, 2025 Dr. Eleanor Armstrong DO Referring Provider Active Start: April 05, 2025 Team Status: Inactive Member Role/Relationship Status Dates Dr. Eleanor Armstrong DO Primary Care Provider Active Start: April 08, 2025 End: April 08, 2025 Dr. Eleanor Armstrong DO Referring Provider Active Start: April 08, 2025 End: April 08, 2025 Dr. Jac Truong MD Attending Provider Active Start: April 08, 2025 End: April 08, 2025 Team Status: Inactive Member Role/Relationship Status Dates Dr. Eleanor Armstrong DO Primary Care Provider Active Start: March 19, 2025 Dr. Jennifer Hemphill MD Attending Provider Active Start: March 19, 2025 Team Status: Inactive Member Role/Relationship Status Dates Dr. Eleanor Armstrong DO Primary Care Provider Active Start: March 19, 2025 End: March 19, 2025 Dr. Eleanor Armstrong DO Referring Provider Active Start: March 19, 2025 End: March 19, 2025 Dr. Jac Truong MD Attending Provider Active Start: March 19, 2025 End: March 19, 2025 Team Status: Inactive Member Role/Relationship Status Dates Dr. Eleanor Armstrong DO Primary Care Provider Active Start: April 05, 2025 End: April 05, 2025 Dr. Eleanor Armstrong DO Attending Provider Active Start: April 05, 2025 End: April 05, 2025 Dr. Eleanor Armstrong DO Referring Provider Active Start: April 05, 2025 End: April 05, 2025 Team Status: Inactive Member Role/Relationship Status Dates Dr. Eleanor Armstrong DO Primary Care Provider Active Start: April 08, 2025 End: April 08, 2025 Dr. Eleanor Armstrong DO Referring Provider Active Start: April 08, 2025 End: April 08, 2025 Dr. Jac Truong MD Attending Provider Active Start: April 08, 2025 End: April 08, 2025 Team Status: Inactive Member Role/Relationship Status Dates Dr. Eleanor Armstrong DO Primary Care Provider Active Start: January 02, 2025 End: January 02, 2025 Dr. Jalil Banerjee DPM Attending Provider Active Start: January 02, 2025 End: January 02, 2025 Dr. Jalil Banerjee DPM Referring Provider Active Start: January 02, 2025 End: January 02, 2025 Team Status: Active Member Role/Relationship Status Dates Dr. Eleanor Armstrong DO Primary Care Provider Active Start: January 02, 2025 Dr. Jalil Banerjee DPM Referring Provider Active Start: January 02, 2025 Dr. Jalil Banerjee DPM Other Provider Active S tart: January 02, 2025 Dr. Eloy Montgomery MD Attending Provider Active S tart: January 02, 2025 Team Status: Inactive Member Role/Relationship Status Dates Dr. Eleanor Armstrong DO Primary Care Provider Active Start: January 28, 2025 End: January 28, 2025 Dr. Eleanor Armstrong DO Referring Provider Active Start: January 28, 2025 End: January 28, 2025 Dr. Jac Truong MD Attending Provider Active Start: January 28, 2025 End: January 28, 2025 Team Status: Inactive Member Role/Relationship Status Dates Dr. Eleanor Armstrong DO Primary Care Provider Active Start: February 14, 2025 End: February 14, 2025 Dr. Eleanor Armstrong DO Referring Provider Active Start: February 14, 2025 End: February 14, 2025 Dr. Jac Truong MD Attending Provider Active Start: February 14, 2025 End: February 14, 2025 Team Status: Inactive Member Role/Relationship Status Dates Dr. Eleanor Armstrong DO Primary Care Provider Active Start: February 15, 2025 End: February 16, 2025 Dr. Drew Dejesus DO Emergency Provider Active Start : February 15, 2025 End: February 16, 2025 Dr. Marvin Becerril MD Admit Provider Active Start: February 15, 2025 End: February 16, 2025 Dr. Marvin Becerril MD Other Provider Active Start: February 15, 2025 End: February 16, 2025 Sheng Galvin MD Other Provider Active Start: Ut 2024 End: February 16, 2025 Dr. Hansa Pepper MD Other Provider Active Start: February 15, 2025 End: February 16, 2025 Karen Perkins MD Other Provider Active Start : February 15, 2025 End: February 16, 2025 Dr. Mirna Lira DO Other Provider Active St art: February 15, 2025 End: February 16, 2025 Dr. Joselyn De Guzman MD Other Provider Active Start: February 15, 2025 End: February 16, 2025 Dr. Deo Duran MD Other Provider Active Sta rt: February 15, 2025 End: February 16, 2025 Dr. Danyell Mg MD Other Provider Active Start : February 15, 2025 End: February 16, 2025 Dr. Zaki Costa MD Other Provider Active Start: February 15, 2025 End: February 16, 2025 Dr. Jim Kingsley MD Other Provider Active Start : February 15, 2025 End: February 16, 2025 Dr. Esteban Jernigan MD Other Provider Active Sta rt: February 15, 2025 End: February 16, 2025 Leilani Zapata MD Other Provider Active Start : February 15, 2025 End: February 16, 2025 Dr. Coleman Lakhani MD Other Provider Active St art: February 15, 2025 End: February 16, 2025 Dr. Tisha Novoa MD Other Provider Active Start : February 15, 2025 End: February 16, 2025 Dr. Rob Nguyen MD Other Provider Active Sta rt: February 15, 2025 End: February 16, 2025 Dr. Kathe Weathers MD Other Provider Active Start: February 15, 2025 End: February 16, 2025 Dr. Joe Block MD Other Provider Active St art: February 15, 2025 End: February 16, 2025 Dr. Chrissie Egan MD Other Provider Active Star t: February 15, 2025 End: February 16, 2025 Dr. Bjorn Lockhart MD Other Provider Active St art: February 15, 2025 End: February 16, 2025 Dr. Trinh Viveros MD Other Provider Active Start: February 15, 2025 End: February 16, 2025 Echo Castro MD Other Provider Active Start: February 15, 2025 End: February 16, 2025 Dr. Eliel Reeves MD Attending Provider Active Start: February 15, 2025 End: February 16, 2025 Dr. Jes Ortiz MD Other Provider Active St art: February 15, 2025 End: February 16, 2025 Team Status: Active Member Role/Relationship Status Dates Dr. Eleanor Armstrong DO Primary Care Provider Active Start: February 15, 2025 Dr. Drew Dejesus DO Emergency Provider Active Start : February 15, 2025 Dr. Marvin Becerril MD Admit Provider Active Start: February 15, 2025 Dr. Marvin Becerril MD Attending Provider Active Start: February 15, 2025 Dr. Marvin Becerril MD Other Provider Active Start: February 15, 2025 Team Status: Active Member Role/Relationship Status Dates Dr. Eleanor Armstrong DO Primary Care Provider Active Start: February 15, 2025 Dr. Carolina Centeno MD Attending Provider Active Start: February 15, 2025 Team Status: Active Member Role/Relationship Status Dates Dr. Eleanor Armstrong DO Primary Care Provider Active Start: February 16, 2025 Dr. Drew Dejesus DO Emergency Provider Active Start : February 16, 2025 Dr. Marvin Becerril MD Admit Provider Active Start: February 16, 2025 Dr. Marvin Becerril MD Other Provider Active Start: February 16, 2025 Sheng Galvin MD Other Provider Active Start: Ut m[place] 2024 Dr. Hansa Pepper MD Other Provider Active Start: February 16, 2025 Karen Perkins MD Other Provider Active Start : February 16, 2025 Dr. Mirna Lira DO Other Provider Active St art: February 16, 2025 Dr. Joselyn De Guzman MD Other Provider Active Start: February 16, 2025 Dr. Deo Duran MD Other Provider Active Sta rt: February 16, 2025 Dr. Danyell Mg MD Other Provider Active Start : February 16, 2025 Dr. Zaki Costa MD Other Provider Active Start: February 16, 2025 Dr. Jim Kingsley MD Other Provider Active Start : February 16, 2025 Dr. Esteban Jernigan MD Other Provider Active Sta rt: February 16, 2025 Leilani Zapata MD Other Provider Active Start : February 16, 2025 Dr. Colemna Lakhani MD Other Provider Active St art: February 16, 2025 Dr. Tisha Novoa MD Other Provider Active Start : February 16, 2025 Dr. Rob Nguyen MD Other Provider Active Sta rt: February 16, 2025 Dr. Kathe Weathers MD Other Provider Active Start: February 16, 2025 Dr. Joe Block MD Other Provider Active St art: February 16, 2025 Dr. Chrissie Egan MD Other Provider Active Star t: February 16, 2025 Dr. Bjorn Lockhart MD Other Provider Active St art: February 16, 2025 Dr. Trinh Viveros MD Other Provider Active Start: February 16, 2025 Echo Castro MD Other Provider Active Start: February 16, 2025 Dr. Eliel Reeves MD Attending Provider Active Start: February 16, 2025 Dr. Eliel Reeves MD Other Provider Active Sta rt: February 16, 2025 Dr. Jes Ortiz MD Other Provider Active St art: February 16, 2025 Team Status: Inactive Member Role/Relationship Status Dates Dr. Eleanor Armstrong DO Primary Care Provider Active Start: February 21, 2025 End: February 21, 2025 Dr. Jac Trunog MD Attending Provider Active Start: February 21, 2025 End: February 21, 2025 Dr. Jac Truong MD Referring Provider Active Start: February 21, 2025 End: February 21, 2025 Team Status: Inactive Member Role/Relationship Status Dates Dr. Eleanor Armstrong DO Primary Care Provider Active Start: March 11, 2025 End: March 11, 2025 Dr. Jac Truong MD Attending Provider Active Start: March 11, 2025 End: March 11, 2025 Dr. Jac Truong MD Referring Provider Active Start: March 11, 2025 End: March 11, 2025 Team Status: Active Member Role/Relationship Status Dates Dr. Harris Keating MD Attending Provider Active Start: March 11, 2025 Dr. Jac Truong MD Referring Provider Active Start: March 11, 2025 Team Status: Inactive Member Role/Relationship Status Dates Dr. Eleanor Armstrong DO Primary Care Provider Active Start: March 19, 2025 Dr. Jennifer Hemphill MD Attending Provider Active Start: March 19, 2025 Team Status: Inactive Member Role/Relationship Status Dates Dr. Eleanor Armstrong DO Primary Care Provider Active Start: March 19, 2025 End: March 19, 2025 Dr. Eleanor Armstrong DO Referring Provider Active Start: March 19, 2025 End: March 19, 2025 Dr. Jac Truong MD Attending Provider Active Start: March 19, 2025 End: March 19, 2025 Team Status: Inactive Member Role/Relationship Status Dates Dr. Eleanor Armstrong DO Primary Care Provider Active Start: April 05, 2025 End: April 05, 2025 Dr. Eleanor Armstrong DO Attending Provider Active Start: April 05, 2025 End: April 05, 2025 Dr. Eleanor Armstrong DO Referring Provider Active Start: April 05, 2025 End: April 05, 2025 Team Status: Inactive Member Role/Relationship Status Dates Dr. Eleanor Armstrong DO Primary Care Provider Active Start: April 08, 2025 End: April 08, 2025 Dr. Eleanor Armstrong DO Referring Provider Active Start: April 08, 2025 End: April 08, 2025 Dr. Jac Truong MD Attending Provider Active Start: April 08, 2025 End: April 08, 2025 Team Status: Inactive Member Role/Relationship Status Dates Dr. Eleanor Armstrong DO Primary Care Provider Active Start: May 02, 2025 End: May 02, 2025 Dr. Eleanor Armstrong DO Referring Provider Active Start: May 02, 2025 End: May 02, 2025 Dr. Jac Truong MD Attending Provider Active Start: May 02, 2025 End: May 02, 2025 Team Status: Inactive Member Role/Relationship Status Dates Dr. Eleanor Armstrong DO Primary Care Provider Active Start: January 28, 2025 End: January 28, 2025 Dr. Eleanor Armstrong DO Referring Provider Active Start: January 28, 2025 End: January 28, 2025 Dr. Jac Truong MD Attending Provider Active Start: January 28, 2025 End: January 28, 2025 Team Status: Inactive Member Role/Relationship Status Dates Dr. Eleanor Armstrong DO Primary Care Provider Active Start: February 14, 2025 End: February 14, 2025 Dr. Eleanor Armstrong DO Referring Provider Active Start: February 14, 2025 End: February 14, 2025 Dr. Jac Truong MD Attending Provider Active Start: February 14, 2025 End: February 14, 2025 Team Status: Inactive Member Role/Relationship Status Dates Dr. Eleanor Armstrong DO Primary Care Provider Active Start: February 15, 2025 End: February 16, 2025 Dr. Drew Dejesus , Emergency Provider Active Start : February 15, 2025 End: February 16, 2025 Dr. Marvin Becerril MD Admit Provider Active Start: February 15, 2025 End: February 16, 2025 Dr. Marvin Becerril MD Other Provider Active Start: February 15, 2025 End: February 16, 2025 Sheng Galvin MD Other Provider Active Start: Brodie 2024 End: February 16, 2025 Dr. Hansa Pepper MD Other Provider Active Start: February 15, 2025 End: February 16, 2025 Karen Perkins MD Other Provider Active Start : February 15, 2025 End: February 16, 2025 Dr. Mirna Lira DO Other Provider Active St art: February 15, 2025 End: February 16, 2025 Dr. Joselyn De Guzman MD Other Provider Active Start: February 15, 2025 End: February 16, 2025 Dr. Deo Duran MD Other Provider Active Sta rt: February 15, 2025 End: February 16, 2025 Dr. Danyell Mg MD Other Provider Active Start : February 15, 2025 End: February 16, 2025 Dr. Zaki Costa MD Other Provider Active Start: February 15, 2025 End: February 16, 2025 Dr. Jim Kingsley MD Other Provider Active Start : February 15, 2025 End: February 16, 2025 Dr. Esteban Jernigan MD Other Provider Active Sta rt: February 15, 2025 End: February 16, 2025 Leilani Zapata MD Other Provider Active Start : February 15, 2025 End: February 16, 2025 Dr. Coleman Lakhani MD Other Provider Active St art: February 15, 2025 End: February 16, 2025 Dr. Tisha Novoa MD Other Provider Active Start : February 15, 2025 End: February 16, 2025 Dr. Rob Nguyen MD Other Provider Active Sta rt: February 15, 2025 End: February 16, 2025 Dr. Kathe Weathers MD Other Provider Active Start: February 15, 2025 End: February 16, 2025 Dr. Joe Block MD Other Provider Active St art: February 15, 2025 End: February 16, 2025 Dr. Chrissie Egan MD Other Provider Active Star t: February 15, 2025 End: February 16, 2025 Dr. Bjorn Lockhart MD Other Provider Active St art: February 15, 2025 End: February 16, 2025 Dr. Trinh Viveros MD Other Provider Active Start: February 15, 2025 End: February 16, 2025 Echo Castro MD Other Provider Active Start: February 15, 2025 End: February 16, 2025 Dr. Eliel Reeves MD Attending Provider Active Start: February 15, 2025 End: February 16, 2025 Dr. Jes Ortiz MD Other Provider Active St art: February 15, 2025 End: February 16, 2025 Team Status: Active Member Role/Relationship Status Dates Dr. Eleanor Armstrong DO Primary Care Provider Active Start: February 15, 2025 Dr. Drew Dejesus , DO Emergency Provider Active Start : February 15, 2025 Dr. Marvin Becerril MD Admit Provider Active Start: February 15, 2025 Dr. Marvin Becerril MD Attending Provider Active Start: February 15, 2025 Dr. Marvin Becerril MD Other Provider Active Start: February 15, 2025 Team Status: Active Member Role/Relationship Status Dates Dr. Eleanor Armstrong DO Primary Care Provider Active Start: February 15, 2025 Dr. Carolina Centeno MD Attending Provider Active Start: February 15, 2025 Team Status: Active Member Role/Relationship Status Dates Dr. Eleanor Armstrong DO Primary Care Provider Active Start: February 16, 2025 Dr. Drew Dejesus DO Emergency Provider Active Start : February 16, 2025 Dr. Marvin Becerril MD Admit Provider Active Start: February 16, 2025 Dr. Marvin Becerril MD Other Provider Active Start: February 16, 2025 Sheng Galvin MD Other Provider Active Start: [place] 2024 Dr. Hansa Pepper MD Other Provider Active Start: February 16, 2025 Karen Perkins MD Other Provider Active Start : February 16, 2025 Dr. Mirna Lira DO Other Provider Active St art: February 16, 2025 Dr. Joselyn De Guzman MD Other Provider Active Start: February 16, 2025 Dr. Deo Duran MD Other Provider Active Sta rt: February 16, 2025 Dr. Danyell Mg MD Other Provider Active Start : February 16, 2025 Dr. Zaki Costa MD Other Provider Active Start: February 16, 2025 Dr. Jim Kingsley MD Other Provider Active Start : February 16, 2025 Dr. Esteban Jernigan MD Other Provider Active Sta rt: February 16, 2025 Leilani Zapata MD Other Provider Active Start : February 16, 2025 Dr. Coleman Lakhani MD Other Provider Active St art: February 16, 2025 Dr. Tisha Novoa MD Other Provider Active Start : February 16, 2025 Dr. Rob Nguyen MD Other Provider Active Sta rt: February 16, 2025 Dr. Kathe Weathers MD Other Provider Active Start: February 16, 2025 Dr. Joe Block MD Other Provider Active St art: February 16, 2025 Dr. Chrissie Egan MD Other Provider Active Star t: February 16, 2025 Dr. Bjorn Lockhart MD Other Provider Active St art: February 16, 2025 Dr. Trinh Viveros MD Other Provider Active Start: February 16, 2025 Echo Castro MD Other Provider Active Start: February 16, 2025 Dr. Eliel Reeves MD Attending Provider Active Start: February 16, 2025 Dr. Eliel Reeves MD Other Provider Active Sta rt: February 16, 2025 Dr. Jes Ortiz MD Other Provider Active St art: February 16, 2025 Team Status: Inactive Member Role/Relationship Status Dates Dr. Eleanor Armstrong DO Primary Care Provider Active Start: February 21, 2025 End: February 21, 2025 Dr. Jac Truong MD Attending Provider Active Start: February 21, 2025 End: February 21, 2025 Dr. Jac Truong MD Referring Provider Active Start: February 21, 2025 End: February 21, 2025 Team Status: Inactive Member Role/Relationship Status Dates Dr. Eleanor Armstrong DO Primary Care Provider Active Start: March 11, 2025 End: March 11, 2025 Dr. Jac Truong MD Attending Provider Active Start: March 11, 2025 End: March 11, 2025 Dr. Jac Truong MD Referring Provider Active Start: March 11, 2025 End: March 11, 2025 Team Status: Active Member Role/Relationship Status Dates Dr. Harris Keating MD Attending Provider Active Start: March 11, 2025 Dr. Jac Truogn MD Referring Provider Active Start: March 11, 2025 Team Status: Inactive Member Role/Relationship Status Dates Dr. Eleanor Armstrong DO Primary Care Provider Active Start: March 19, 2025 Dr. Jennifer Hemphill MD Attending Provider Active Start: March 19, 2025 Team Status: Inactive Member Role/Relationship Status Dates Dr. Eleanor Armstrong DO Primary Care Provider Active Start: March 19, 2025 End: March 19, 2025 Dr. Eleanor Armstrong DO Referring Provider Active Start: March 19, 2025 End: March 19, 2025 Dr. Jac Truong MD Attending Provider Active Start: March 19, 2025 End: March 19, 2025 Team Status: Inactive Member Role/Relationship Status Dates Dr. Eleanor Armstrong DO Primary Care Provider Active Start: April 05, 2025 End: April 05, 2025 Dr. Eleanor Armstrong DO Attending Provider Active Start: April 05, 2025 End: April 05, 2025 Dr. Eleanor Armstrong DO Referring Provider Active Start: April 05, 2025 End: April 05, 2025 Team Status: Inactive Member Role/Relationship Status Dates Dr. Eleanor Armstrong DO Primary Care Provider Active Start: April 08, 2025 End: April 08, 2025 Dr. Eleanor Armstrong DO Referring Provider Active Start: April 08, 2025 End: April 08, 2025 Dr. Jac Truong MD Attending Provider Active Start: April 08, 2025 End: April 08, 2025 Team Status: Inactive Member Role/Relationship Status Dates Dr. Eleanor Armstrong DO Primary Care Provider Active Start: May 02, 2025 End: May 02, 2025 Dr. Eleanor Armstrong DO Referring Provider Active Start: May 02, 2025 End: May 02, 2025 Dr. Jac Truong MD Attending Provider Active Start: May 02, 2025 End: May 02, 2025 Team Status: Inactive Member Role/Relationship Status Dates Dr. Eleanor Armstrong DO Primary Care Provider Active Start: May 04, 2025 End: May 04, 2025 Dr. Eleanor Armstrong DO Referring Provider Active Start: May 04, 2025 End: May 04, 2025 NUNU Schultz Attending Provider Active Start: May 04, 2025 End: May 04, 2025 Team Status: Inactive Member Role/Relationship Status Dates Dr. Eleanor Armstrong DO Primary Care Provider Active Start: May 05, 2025 End: May 05, 2025 Reza Sharpe PEDIATRIC SPEECH LANGUAGE PATHOLOGIST, PEDIATRIC SPEECH LANGUAGE PATHOLOGIST-C Attending Provider Active S tart: May 05, 2025 End: May 05, 2025 FOR RECORDS PERTAINING TO PATIENTS WHO ARE OR HAVE BEEN ENROLLED IN A CHEMICAL DEPENDENCY/SUBSTANCEABUSE PROGRAM, SOME INFORMATION MAY BE OMITTED. This clinical summary was aggregated from multiple sources. Caution should be exercised in using it in the provision of clinical care. This summary normalizes information from multiple sources, and as a consequence, information in this document may materially change the coding, format and clinical context of patient data. In addition, data may be omitted in some cases. CLINICAL DECISIONS SHOULD BE BASED ON THE PRIMARY CLINICAL RECORDS. [facility] [email or web address], [facility]. provides no warranty or guarantee of the accuracy or completeness of information in this document.
[2025-05-16 03:32] VITALS: BP 128/69; PULSE 69; RESP 18; TEMP 36.7; O2SAT 97
== END 2025-05-16 03:51 | disposition home or self-care (01) ==
PROVIDERS: Emergency Provider Emergency Medicine; PCP Internal Medicine; Visit Provider Emergency Medicine
DX: K52.9 Noninfective gastroenteritis and colitis, unspecified (principal); F41.9 Anxiety disorder, unspecified; Z79.899 Other long term (current) drug therapy; Z86.16 Personal history of COVID-19
CPT/HCPCS: 74177; 80053; 81001; 83690; 85025; 96361; 96374; 96375; 99283; Q9967; A4216; J2405

== ENCOUNTER 2025-06-26 13:10 | Day surgery (SDC) | payer MEDICARE, OTHER, SELFPAY ==
[2025-06-26] VITALS (9 sets, daily range): BP systolic 100–130; BP diastolic 58–83; PULSE 53–81; RESP 16; TEMP 36.1–36.7; O2SAT 95–100; BMI 35.9
--- NOTE | 2025-06-26 13:28 | HP.PCM_ITS ---
HPI - General General Date of Admission: 06/26/25 Date of Service: 06/26/25 Chief Complaint: abdominal pain and diarrhea HPI Narrative [ ANTHONY CHAUDHARY, is a 69 F who presents to the office today for ER follow up. She has a history of Parkinson's disease (PD), anxiety, depression, and chronic pain. She reports a two-day history of new-onset left lower quadrant (LLQ) abdominal pain and bloating. [facility] ED 05.16.25 pt presents with left lower quadrant pain. abd/pelvis CT 05.16.25 Mild small bowel/jejunal loops wall thickening, possibly inflammatory (enteritis) versus non specific. Advise clinical correlation. Colonic diverticulosis. No diverticulitis. Colonic fecal loading. OV 05.30.25 pt's reports they're here today to follow up from imaging done in the ER 05.16.25. Pt reports ongoing constant abdominal cramping for the past month; reports several medication changes recently for pt's neuropathy in her feet. Pt reports that eating does not make pain worse, and having a bm does not alleviate pain. Pt reports bm every 3-5 days and reports that this is her normal. The pain is described as a persistent, cramping sensation in her LLQ. It is rated as 5/10 on the pain scale but can intensify to 7/10 with movement or after eating. She notes the pain is similar to discomfort she has felt with constipation in the past but is more localized and intense. She?reports a constant feeling of abdominal fullness and tightness that worsens throughout the day, especially after meals. She states her last bowel movement was four days ago, and it was hard and difficult to pass. She reports a history of chronic constipation, a common non-motor symptom of PD. ?She denies fever, chills, nausea, vomiting, or blood in her stool. She reports increased anxiety due to the new pain, which is exacerbating her stress and making it harder to cope with her other chronic pain and PD symptoms. Her depression symptoms are stable, but the new pain is impacting her quality of life. * Medications:?Takes regular PD medications. She is also on a medication for anxiety and depression and reports good adherence. Review for potential GI side effects of current medications is warranted. dicyclomine 20 mg PO TID 90 tabs 2RF ] [facility] Medical History Wears glasses Non-smoker History of panic attacks History of echocardiogram Gait instability Weakness of right upper extremity Parkinson disease COVID-19 Acute bronchitis, unspecified Anemia Parkinson's disease Neck pain Shoulder pain Home Medications ?Medication ?Instructions ?Recorded ?Last Taken ?Type magnesium 200 mg tablet 200 mg PO DAILY 10/27/21 History citalopram 10 mg tablet (Celexa) 10 mg PO DAILY 02/13/25 History coenzyme Q10 30 mg capsule 30 mg PO DAILY 11/08/22 History omega-3 fatty acids 1,000 mg 1,000 mg PO DAILY 3 02/13/25 History capsule multivitamin (Daily Multi-Vitamin 1 tab PO DAILY 02/1502/13/25 History tablet) alpha lipoic acid 300 mg capsule 300 mg PO QDAY Unknown History cholecalciferol (vitamin D3) 25 25 mcg PO QDAY 5 Unknown History mcg (1,000 unit) capsule potassium gluconate 595 mg (99 mg) 595 mg PO QDAY 10/13 Unknown History tablet carbidopa ER 50 mg-levodopa 200 mg 1 tab PO .QID #120 tabs 04/08/25 Unknown Rx tablet,extended release ondansetron 4 mg disintegrating 4 mg PO Q8H PRN PRN Na usea 3 days 05/16/25 Unknown Rx tablet #10 tabs dicyclomine 20 mg tablet 20 mg PO TID #90 tabs Unknown Rx ibuprofen 200 mg tablet 400 mg PO Q8H PRN fever or p ain 05/30/25 Unknown History vitamin E succinate 268 mg (400 268 mg PO QDAY 5 Unknown History unit) tablet buspirone 10 mg tablet 10 mg PO BID #60 tabs Unknown Rx baclofen 10 mg tablet 10 mg PO BID muscle pain/mus bradley 06/12/25 Unknown Rx spasm #60 tabs pregabalin 75 mg capsule 75 mg PO BID 06/20/25 Unknow n History Allergy/AdvReac Type Severity Reaction Status Date / Time No Known Allergies Allergy Verified 06/20/25 09:08 Family History Mother Non-Hodgkin lymphoma Father Alzheimer disease Sister Bone cancer CVA (cerebral vascular accident) Parkinsons disease Grandfather Myocardial infarction Grandfather Myocardial infarction Surgical History No history of previous surgery Social History household members: spouse housing: house Smoking Status: Never smoker second hand exposure: No alcohol intake: current details: socially substance use type: does not use deshaun/tenriism: Nondenominational seatbelt use: always ROS Constitutional Constitutional: Denies fatigue, fever(s), poor appetite, weight gain or weight loss Gastrointestinal Gastrointestinal: Denies belching, bloating, change in bowel habits, change in stool character, chewing difficulty, coffee ground emesis, constipation, cramping, diarrhea, dyspepsia, dysphagia, early satiety, excessive flatus, fecal incontinence, heartburn, hematemesis, hematochezia, hemorrhoids, loose stools, melena, nausea, odynophagia, rectal bleeding, tenesmus, vomiting or weight [facility] Physical Exam Const alert, oriented x3, no apparent distress and healthy appearing General Appearance: cooperative GI normal to inspection, nondistended, normoactive bowel sounds, soft to palpation, non-tender and non-distended Percussion: normal to percussion Rectal Exam: deferred Assessment & Plan Assessment/Plan (1) Abdominal pain: (2) Anemia: PLAN: Assessment and Plan Assessment and Plan (1) Panic attacks: Status: Acute (2) Anxiety: Status: Acute (3) Abdominal pain: Status: Acute Plan: Assessment * Left Lower Quadrant Pain and Bloating:?The primary assessment is abdominal pain and bloating, likely related to her chronic constipation, a common and often severe non-motor symptom of Parkinson's disease. The neurodegenerative processes of PD can slow GI motility, leading to constipation and related symptoms. * Parkinson's Disease (PD):?The patient's underlying PD is a significant factor in her presentation. GI dysfunction in PD is common and can affect the entire gut. * Chronic Pain:?Her history of chronic pain is intertwined with her PD and anxiety, with these conditions often creating a negative feedback loop. * Anxiety and Depression:?Both conditions are linked to chronic illness and pain, exacerbating each other. Her current abdominal symptoms are a source of increased anxiety. * Differential Diagnoses for LLQ pain in an elderly woman:?While constipation is most likely, it is important to consider other possibilities: * Diverticulitis (common in older adults). * Small Intestinal Bacterial Overgrowth (SIBO), which is more common in PD and can cause bloating. * Irritable Bowel Syndrome (IBS). * Ovarian pathology (less likely given no associated gynecological symptoms, but should be considered). * Inflammatory Bowel Disease (IBD). * Colorectal cancer (less common with acute onset, but requires consideration with red flag symptoms). Plan * Diagnostic: * Order a complete blood count (CBC) to check for infection/inflammation. * Consider an abdominal CT scan with contrast if the LLQ pain persists or worsens, to rule out diverticulitis or other serious pathology. * Recommend a GI consultation for further evaluation, including a colonoscopy if conservative treatment fails or if red flag symptoms like unexplained weight loss or rectal bleeding appear. * Treatment: * Immediate management:?Recommend a gentle bowel regimen with a stool softener (e.g., docusate) and an osmotic laxative (e.g., MiraLAX). Advise increasing fluid intake and gentle physical activity, as tolerated. * PD and GI:?Re-evaluate current PD and other medications for potential GI side effects that may worsen constipation. * Pain:?Continue current pain management, but consider non-pharmacological approaches to reduce reliance on pain medications that can worsen constipation. * Mental Health:?Refer for counseling to help with coping strategies for chronic illness, pain, and anxiety Medications: New dicyclomine 20 mg PO TID 90 tabs 2RF
[2025-06-26] MEDS: Lactated Ringers 1,000 ML 15 ML IV (13:46)
--- NOTE | 2025-06-26 13:58 | PCM.PRE.AN2 ---
ASA Classification* ASA Classification ASA Classification: 3 Assessment & Plan Anesthesia* Anesthesia Assessment Anesthesia Assessment: Discussed sedation and/or anesthesia options, risks, benefits, and alternatives with patient/parents/legal guardian/POA. Questions invited. The patient/parents/legal guardian/POA seems to understand and agrees to proceed with anesthesia plan. Reviewed the physical assessment, medical history, allergy history and patient home medications list prior to surgery/procedure/anesthetic and documented any changes. Performed airway and anesthesia risk assessments. Anesthesia Type Anesthesia Type: MAC History Source History Obtained from:: Patient, Chart and Significant Other ( and daughter in the room) Anesthesia Focused Assessment* Temperature: 98.0 F Pulse Rate: 67 Blood Pressure: 130/83 Respiratory Rate: 16 Pulse Ox: 100 Oxygen Delivery Method: Room Air Airway Assessment Mouth opens: >3 cm Mallampati Score: II Teeth Condition: Intact and Missing Neck Range of motion (ROM): Limited ROM Labs Anesthesia Preop lab: CBC WBC, (4.4-11.0) 5.2 K/mm3 05/16/25, 00:55 RBC, (4.2-5.4) 3.71 M/mm3 L 05/16/25, 00:55 Hgb, (12.0-15.0) 12.2 g/dL 05/16/25, 00:55 Hct, (37-47) 35.7 % L 05/16/25, 00:55 Plt Count, (150-450) 202 K/mm3 05/16/25, 00:55 CHEMISTRY Potassium, (3.3-5.1) 3.8 mmol/L 05/16/25, 00:55 Sodium, (133-145) 139 mmol/L 05/16/25, 00:55 Magnesium, (1.6-2.6) 1.9 mg/dL 03/04/22, 10:08 BUN, (4-19) 30 mg/dL H 05/16/25, 00:55 Creatinine, (0.70-1.20) 0.74 mg/dL 05/16/25, 00:55 Glucose, (70-99) 108 mg/dL H 05/16/25, 00:55 POC Glucose, (74-106) 84 mg/dL 02/15/25, 01:59 TSH, (0.300-4.200) 1.550 uIU/mL 12/18/24, 11:38 COAG PT, (11.7-14.9) 13.6 SECONDS 02/15/25, 01:43 Pre-Assessment Diagnosis/Proposed Procedure Planned Operative Procedure(s): Colonoscopy,EGD Anesthesia History Anesthesia History - post doctoral researcher: Anesthesia History - post doctoral researcher Hx Hospitalization Yes: 25 - for observation 06/20/25 09:21 Any Problems With Anesthesia No 06/20/25 09:21 Cholinesterase deficiency No 06/20/25 09:21 You/Your Family Experience No 06/20/25 09:21 fever (hyperthermia) with Relationship Recent Exposure to Contagious No 06/26/25 13:43 Disease Does patient have nerve No 06/20/25 09:21 stimulator Patient instructed to have device shut off --Does patient have Pacemaker No 06/26/25 13:43 or ICD? When Was Last Pacemaker Check QUESTION #4 FULL TEXT: You/Your Family Experience fever (hyperthermia) with Anesthesia Last Oral Intake Last Oral intake: Last Oral Intake NPO since 11:00 06/26/25 13:43 Meds taken in AM with sips of Yes 06/26/25 13:43 water? Meds patient instructed to carbidopa-levodopa 06/26/25 13:43 take am of surgery PONV PONV - post doctoral researcher: PONV - post doctoral researcher Female Yes 06/20/25 09:21 HX of Motion Sickness Yes 06/20/25 09:21 HX of N/V After Surgery No 06/20/25 09:21 Non-Smoker Yes 06/20/25 09:21 Duration of Surgery greater No 06/20/25 09:21 than 60 minutes Number of Risk Factors 3 06/20/25 09:21 PONV Score Moderate Risk 06/20/25 09:21 Height & Weight Height & Weight: Anesthesia: Height & Weight Height 5 ft 5 in 06/26/25 13:43 Weight: 98 kg 06/26/25 13:43 Body Mass Index (BMI) 35.9 06/26/25 13:43 Respiratory Assessment Respiratory Assessment - post doctoral researcher: Respiratory Tract Infection Hx - post doctoral researcher Hx Respiratory Tract Infection No 06/20/25 09:21 STOP Sleep Apnea STOP Sleep Apnea - post doctoral researcher: STOP Sleep Apnea - post doctoral researcher Hx Hypertension No 06/20/25 09:21 Hx Sleep Apnea No 06/20/25 09:21 CPAP BIPAP Do you snore loudly (louder Yes 06/20/25 09:21 than talking or can be heard Do you often feel tired/ Yes 06/20/25 09:21 fatigued/ sleepy during daytime? Has anyone observed you stop Yes 06/20/25 09:21 breathing during sleep? STOP Results Positive 06/20/25 09:21 QUESTION #5 FULL TEXT : Do you snore loudly (louder than talking or can be heard through closed doors)? Tobacco Use History Tobacco Use History - post doctoral researcher: Tobacco Use History - post doctoral researcher Tobacco Use Non-smoker 05/04/25 10:31 Smoking Status Never smoker 06/20/25 09:21 Hx Tobacco Use No 06/20/25 09:21 Years Smoking Packs Smoked per Day Smoking Cessation Date was within the last 15 years Hx Smoking Cessation Date Hx Smoking Cessation Counseling Hematologic Medial History Hematologic Hx - post doctoral researcher: Hematologic Medical Hx - latex caster Hx of Blood Transfusion No 06/20/25 09:21 Hx of Transfusion in last 3 No 06/20/25 09:21 Months Date of Last Transfusion (if within last 3 months) Ever experience any problems No 06/20/25 09:21 with transfusion(s)? Specify any problems Hx of Preganancy in last 3 No 06/20/25 09:21 Months Nurse Filling Out Transfusion JZOLLINGE 06/20/25 09:21 & Questions: Date: 06/20/25 06/20/25 09:21 Time: 09:22 06/20/25 09:21 Patient unable to answer at this time (ie. confused, unrespo /Reproduction History /Reproductive History - post doctoral researcher: /Reproductive Hx- post doctoral researcher Hx Now No 06/20/25 09:21 Gestational Age (in weeks): EDC: Hx Hx Para Hx Section SAB No 06/20/25 09:21 Active Medications Active Medications: Current Medications Generic Name Dose Route Start Last Admin Trade Name Freq PRN Reason Stop Dose Admin Lactated Ringer's 1,000 mls @ 15 mls/hr 06/26/25 13:30 06/26/25 13:46 IV 15 mls/hr .Q48H JENNY Administration PFSH Medical History Wears glasses Non-smoker History of panic attacks History of echocardiogram Gait instability Weakness of right upper extremity Parkinson disease COVID-19 Acute bronchitis, unspecified Anemia Parkinson's disease Neck pain Shoulder pain Home Medications ?Medication ?Instructions ?Recorded ?Last Taken ?Type magnesium 200 mg tablet 200 mg PO DAILY 10/27/21 02/13/25 History citalopram 10 mg tablet (Celexa) 10 mg PO DAILY 11/08/22 02/13/25 History coenzyme Q10 30 mg capsule 30 mg PO DAILY 11/08/22 02/13/25 History omega-3 fatty acids 1,000 mg 1,000 mg PO DAILY 11/08/22 02/13/25 History capsule multivitamin (Daily Multi-Vitamin 1 tab PO DAILY 02/15/25 02/13/25 History tablet) alpha lipoic acid 300 mg capsule 300 mg PO QDAY 03/19/25 Unknown History cholecalciferol (vitamin D3) 25 25 mcg PO QDAY 03/19/25 Unknown History mcg (1,000 unit) capsule potassium gluconate 595 mg (99 mg) 595 mg PO QDAY 03/19/25 Unknown History tablet carbidopa ER 50 mg-levodopa 200 mg 1 tab PO .QID #120 tabs 04/08/25 06/26/25 11:00 Rx tablet,extended release ondansetron 4 mg disintegrating 4 mg PO Q8H PRN PRN Nausea 3 days 05/16/25 Unknown Rx tablet #10 tabs dicyclomine 20 mg tablet 20 mg PO TID #90 tabs 05/30/25 Unknown Rx ibuprofen 200 mg tablet 400 mg PO Q8H PRN fever or pain 05/30/25 Unknown History vitamin E succinate 268 mg (400 268 mg PO QDAY 05/30/25 Unknown History unit) tablet buspirone 10 mg tablet 10 mg PO BID #60 tabs 06/10/25 Unknown Rx pregabalin 75 mg capsule 75 mg PO BID 06/20/25 Unknown History Allergy/AdvReac Type Severity Reaction Status Date / Time No Known Allergies Allergy Verified 06/26/25 13:41 Family History Mother Non-Hodgkin lymphoma Father Alzheimer disease Sister Bone cancer CVA (cerebral vascular accident) Parkinsons disease Grandfather Myocardial infarction Grandfather Myocardial infarction Surgical History No history of previous surgery Social History household members: spouse housing: house Smoking Status: Never smoker second hand exposure: No alcohol intake: current details: socially substance use type: does not use deshaun/tenriism: Voodoo seatbelt use: always Review of Systems (Anesthesia) ROS Narrative System reviewed and no additional complaints, except as documented.
--- NOTE | 2025-06-26 14:15 | COLBX_PTH ---
PATIENT: ANTHONY CHAUDHARY LOC: EN U#:[id number] AGE/SX: 69/F ROOM: RE06/26/[address]: Dr. Guilherme Montgomery DO : 1955 BED: DIS: 06/26/2025 SPEC #: [id number] RECD: 06/27/25 07:35 STATUS: FREDERICK RETawanna #: [id number] KARUNA: 06/26/25 14:[address]: Guilherme Montgomery DEPT: SURGICAL PATHOLOGY RECD BY: Sarath Mcguire ENTERED: 06/27/25 10:15 SP TYPE: COLON BX OTHR DR: Dr. Eleanor Armstrong DO Tissues: A - Duodenum, NOS B - Gastric mucous membrane C - Esophagus, NOS Procedures: Immunohistochemical Stains Surgery Specimen Level IV HEADER OPERATION: Colonoscopy, EGD and biopsy and dilatation PRE-OP DIAGNOSIS: Diarrhea, abdominal pain, anemia TISSUE SUBMITTED: A- Duodenum biopsy, B- Gastric body biopsy, C- Random esophagus biopsy MICROSCOPIC DIAGNOSIS A. Small intestine, duodenum, biopsy: * Small bowel mucosa with no pathologic change B. Stomach, gastric body, biopsy: * Oxyntic mucosa with mild chronic inflammation * The Helicobacter pylori immunostain is negative C. Esophagus, random biopsy: * Benign squamous epithelium with no pathologic change MICROSCOPIC DESCRIPTION Slides are reviewed. All matched controls reacted appropriately. These tests were developed and their performance characteristics determined by [facility]. They may not have been cleared or approved by the U.S. Food and Drug Administration. The FDA has determined that such clearance or approval is not necessary. The above immunohistochemical markers are viewed by the Pathologist. GROSS DESCRIPTION A. Received in fixative is one container labeled with the patient's name and designated Duodenum biopsy. The specimen consists of four irregular fragments of caruso tissue that measure <0.1 to 0.5 cm. Smallest fragment may not survive processing. The specimen is totally submitted in one cassette. B. Received in fixative is one container labeled with the patient's name and designated Gastric body biopsy. The specimen consists of one irregular fragment of caruso tissue that measures 0.4 cm. The specimen is totally submitted in one cassette. C. Received in fixative is one container labeled with the patient's name and designated Random esophagus biopsy. The specimen consists of multiple irregular fragments of caruso tissue that in aggregate measure 0.7 x 0.5 x 0.1 cm. The specimen is totally submitted in one cassette. KS 06/27/2025 CPT:30052a4,87379
--- NOTE | 2025-06-26 14:57 | OP.PROVAT_ITS ---
06/26/2025 Eleanor Armstrong [address] [place] [address] Re : Upper GI endoscopy procedure for Emily Escobar Dear Dr. Armstrong This procedure was performed on Thursday, June 26, 2025. My impressions and recommendations are as follows: Impressions : - Benign-appearing esophageal stenosis. Dilated. - Abnormal esophageal motility. - Bile gastritis. Biopsied. - Erythematous duodenopathy. Biopsied. - Biopsies were taken with a cold forceps for evaluation of eosinophilic esophagitis. Recommendations : - Discharge patient to home. - Resume previous diet. - Continue present medications. - Await pathology results. My findings are described in the full procedure note, which is enclosed. If I can be of further assistance, please feel free to contact me at . Sincerely, Guilherme Montgomery, 06/26/2025 2:56:50 PM This report has been signed electronically.
--- NOTE | 2025-06-26 14:57 | OP.EGD_ITS ---
Patient Name: Emily Escobar Procedure Date: 06/26/2025 2:27 PM Date of : 1955 Age: 69 Procedure: Upper GI endoscopy Indications: Epigastric abdominal pain, Abdominal pain in the left upper quadrant, Functional Dyspepsia, Dysphagia, Failure to respond to medical treatment Providers: Guilherme Montgomery DO Referring MD: Eleanor Armstrong Medicines: Monitored Anesthesia Care Patient Profile: This is a 69 year old female. Refer to note in patient chart for documentation of history and physical. Patient has symptoms of chronic epigastric abdominal pain, dysphagia with both liquids and solids and chronic odynophagia. Complications: No immediate complications. Procedure: Pre-Anesthesia Assessment: - Prior to the procedure, a History and Physical was performed, and patient medications and allergies were reviewed. The patient is competent. The risks and benefits of the procedure and the sedation options and risks were discussed with the patient. All questions were answered and informed consent was obtained. Patient identification and proposed procedure were verified by the physician in the pre-procedure area. Mental Status Examination: alert and oriented. Airway Examination: normal oropharyngeal airway and neck mobility. Respiratory Examination: clear to auscultation. CV Examination: normal. Prophylactic Antibiotics: The patient does not require prophylactic antibiotics. Prior Anticoagulants: The patient has taken no anticoagulant or antiplatelet agents. ASA Grade Assessment: II - A patient with mild systemic disease. After reviewing the risks and benefits, the patient was deemed in satisfactory condition to undergo the procedure. The anesthesia plan was to use monitored anesthesia care (MAC). Immediately prior to administration of medications, the patient was re-assessed for adequacy to receive sedatives. The heart rate, respiratory rate, oxygen saturations, blood pressure, adequacy of pulmonary ventilation, and response to care were monitored throughout the procedure. The physical status of the patient was re-assessed after the procedure. After obtaining informed consent, the endoscope was passed under direct vision. Throughout the procedure, the patient's blood pressure, pulse, and oxygen saturations were monitored continuously. The colonoscope was introduced through the mouth, and advanced to the third part of the duodenum. Small bowel enteroscopy was deemed necessary. The upper GI endoscopy was accomplished without difficulty. The patient tolerated the procedure well. Scope In: 2:37:18 PM Scope Out: 2:45:14 PM Total Procedure Duration Time 0 hours 7 minutes 56 seconds Findings: One benign-appearing, intrinsic moderate stenosis was found 18 to 22 cm from the incisors. This stenosis measured 4 mm (inner diameter) x 6 cm (in length). The stenosis was traversed. A guidewire was placed and the scope was withdrawn. Dilation was performed with a Savary dilator with no resistance at 54 Fr. The dilation site was examined following endoscope reinsertion and showed moderate mucosal disruption. Estimated blood loss was minimal. Abnormal motility was noted in the esophagus. The cricopharyngeus was abnormal. There are extra peristaltic waves in the esophageal body. The distal esophagus/lower esophageal sphincter is spastic, but gives up passage to the endoscope. Secondary peristaltic waves are noted. Biopsies were obtained from the proximal and distal esophagus with cold forceps for histology of suspected eosinophilic esophagitis. Segmental mild inflammation characterized by erythema was found in the gastric body. Biopsies were taken with a cold forceps for histology. Verification of patient identification for the specimen was done. Estimated blood loss was minimal. Biopsies were taken with a cold forceps for Helicobacter pylori testing. Verification of patient identification for the specimen was done. Estimated blood loss was minimal. Patchy mildly erythematous mucosa without active bleeding and with no stigmata of bleeding was found in the entire duodenum. Biopsies were taken with a cold forceps for histology. Verification of patient identification for the specimen was done. Estimated blood loss was minimal. A small hiatal hernia was present. Impression: - Benign-appearing esophageal stenosis. Dilated. - Abnormal esophageal motility. - Bile gastritis. Biopsied. - Erythematous duodenopathy. Biopsied. - Biopsies were taken with a cold forceps for evaluation of eosinophilic esophagitis. Recommendation: - Discharge patient to home. - Resume previous diet. - Continue present medications. - Await pathology results. Procedure Code(s): --- Professional --- 57525, Esophagogastroduodenoscopy, flexible, transoral; with insertion of guide wire followed by passage of dilator(s) through esophagus over guide wire 72952, 59,51, Small intestinal endoscopy, enteroscopy beyond second portion of duodenum, not including ileum; with biopsy, single or multiple CPT copyright 2021 [employer]. All rights reserved. The codes documented in this report are preliminary and upon hosiery knitter review may be revised to meet current compliance requirements. Guilherme Montgomery DO 06/26/2025 2:56:50 PM This report has been signed electronically. Number of Addenda: 0 Note Initiated On: 06/26/2025 2:27 PM
--- NOTE | 2025-06-26 15:00 | OP.COLON_ITS ---
Patient Name: Emily Escobar Procedure Date: 06/26/2025 2:45 PM Date of : 1955 Age: 69 Procedure: Colonoscopy Indications: Generalized abdominal pain, Abdominal pain in the left lower quadrant, Abdominal pain in the left upper quadrant, Change in bowel habits, Failure to thrive, Obstipation Providers: Guilherme Montgomery DO Referring MD: Eleanor Armstrong Medicines: Monitored Anesthesia Care Patient Profile: This is a 69 year old female. Refer to note in patient chart for documentation of history and physical. Patient has symptoms of chronic epigastric abdominal pain, dysphagia with both liquids and solids and chronic odynophagia. Last Colonoscopy: date unknown. Unable to locate last colonoscopy report. Complications: No immediate complications. Procedure: Pre-Anesthesia Assessment: - Prior to the procedure, a History and Physical was performed, and patient medications and allergies were reviewed. The patient is competent. The risks and benefits of the procedure and the sedation options and risks were discussed with the patient. All questions were answered and informed consent was obtained. Patient identification and proposed procedure were verified by the physician in the pre-procedure area. Mental Status Examination: alert and oriented. Airway Examination: normal oropharyngeal airway and neck mobility. Respiratory Examination: clear to auscultation. CV Examination: normal. Prophylactic Antibiotics: The patient does not require prophylactic antibiotics. Prior Anticoagulants: The patient has taken no anticoagulant or antiplatelet agents. ASA Grade Assessment: II - A patient with mild systemic disease. After reviewing the risks and benefits, the patient was deemed in satisfactory condition to undergo the procedure. The anesthesia plan was to use monitored anesthesia care (MAC). Immediately prior to administration of medications, the patient was re-assessed for adequacy to receive sedatives. The heart rate, respiratory rate, oxygen saturations, blood pressure, adequacy of pulmonary ventilation, and response to care were monitored throughout the procedure. The physical status of the patient was re-assessed after the procedure. After I obtained informed consent, the scope was passed under direct vision. Throughout the procedure, the patient's blood pressure, pulse, and oxygen saturations were monitored continuously. The colonoscope was introduced through the anus and advanced to the hepatic flexure. The colonoscopy was performed without difficulty. The patient tolerated the procedure well. The quality of the bowel preparation was poor. Scope In: 2:47:59 PM Scope Out: 2:50:14 PM Total Procedure Duration Time 0 hours 2 minutes 15 seconds Findings: The perianal and digital rectal examinations were normal. Liquid semi-liquid semi-solid solid stool was found in the entire colon, precluding visualization. Lavage of the area was performed using copious amounts of sterile water, resulting in incomplete clearance with continued poor visualization. Multiple small and large-mouthed diverticula were found in the recto-sigmoid colon, sigmoid colon and descending colon. Impression: - Preparation of the colon was poor. - Stool in the entire examined colon. - Diverticulosis in the recto-sigmoid colon, in the sigmoid colon and in the descending colon. - No specimens collected. Recommendation: - Discharge patient to home. - Resume previous diet. - Continue present medications. - Repeat colonoscopy because the bowel preparation was poor. Procedure Code(s): --- Professional --- 26909, 53, Colonoscopy, flexible; diagnostic, including collection of specimen(s) by brushing or washing, when performed (separate procedure) CPT copyright 2021 [employer]. All rights reserved. The codes documented in this report are preliminary and upon street light wirer review may be revised to meet current compliance requirements. Guilherme Montgomery DO 06/26/2025 3:00:19 PM This report has been signed electronically. Number of Addenda: 0 Note Initiated On: 06/26/2025 2:45 PM
--- NOTE | 2025-06-26 15:00 | OP.PROVAT_ITS ---
06/26/2025 Eleanor Armstrong [address] [place] [address] Re : Colonoscopy procedure for Emily Escobar Dear Dr. Armstrong This procedure was performed on Thursday, June 26, 2025. My impressions and recommendations are as follows: Impressions : - Preparation of the colon was poor. - Stool in the entire examined colon. - Diverticulosis in the recto-sigmoid colon, in the sigmoid colon and in the descending colon. - No specimens collected. Recommendations : - Discharge patient to home. - Resume previous diet. - Continue present medications. - Repeat colonoscopy because the bowel preparation was poor. My findings are described in the full procedure note, which is enclosed. If I can be of further assistance, please feel free to contact me at . Sincerely, Guilherme Montgomery, 06/26/2025 3:00:19 PM This report has been signed electronically.
--- NOTE | 2025-06-26 15:05 | PCM.POST.ANE ---
Anesthesia: Postop Eval I Current Vital Signs Temperature: 97 F Pulse Rate: 57 Blood Pressure: 108/62 Respiratory Rate: 16 Pulse Ox: 100 Oxygen Delivery Method: Room Air Assessment Airway patent: Yes Spontaneous unlabored respirations: Yes Mental status: Asleep nausea: No Vomiting: No Anesthesia Complication: No Fluid Hydration Crystalloid volume administer (ml): 500 Total IV fluid infused: 500 Progress Note Anesthesia document: Postop Eval 1 completed: Yes
--- NOTE | 2025-06-26 15:28 | PCM.POSTANE2 ---
Anesthesia Postop Eval I Sum Postop Eval Completion status Anesthesia document: Postop Eval 1 completed: Yes Anesthesia Postop Eval I Summary Anesthesia Postop Eval I Summary: Anesthesia Postop Eval I: Assessment Summary Airway patent Yes 06/26/25 15:06 [email or web address] Spontaneous unlabored Yes 06/26/25 15:06 [email or web address] respirations Mental status Asleep 06/26/25 15:06 [email or web address] nausea No 06/26/25 15:06 [email or web address] Vomiting No 06/26/25 15:06 [email or web address] Anesthesia Postop Eval I: Fluid Summary Crystalloid volume administer 500 06/26/25 15:06 [email or web address] (ml) Colloids volume administered ( ml) Blood Product volume administered (ml) Total IV fluid infused 500 06/26/25 15:06 [email or web address] Anesthesia Postop Eval I: Summary Notes Anesthesia Complication No 06/26/25 15:06 [email or web address] Anesthesia Complication Comment: Post-operative progress note Anesthesia: Postop Eval II Evaluation Mental status: Awake and Calm Pain Level: 1 nausea: No Vomiting: No Complications Anesthesia Complication: No
== END 2025-06-26 16:28 | disposition home or self-care (01) ==
LOC: EN 13:11 → AC 13:12
PROVIDERS: PCP Internal Medicine; Referring Provider Internal Medicine; Visit Provider Internal Medicine Gastroenterology
PROC: 0DJD8ZZ Inspection of Lower Intestinal Tract, Via Natural or Artificial Opening Endoscopic (ICD-10-PCS; CPT 45378; principal; 2025-06-26 14:10)
DX: R10.32 Left lower quadrant pain (principal); G20.A1 Parkinson's disease without dyskinesia, without mention of fluctuations; K57.30 Diverticulosis of large intestine without perforation or abscess without bleeding; D64.9 Anemia, unspecified; K29.70 Gastritis, unspecified, without bleeding; K30 Functional dyspepsia; K22.2 Esophageal obstruction; R13.10 Dysphagia, unspecified; F41.0 Panic disorder [episodic paroxysmal anxiety]; Z79.899 Other long term (current) drug therapy; K44.9 Diaphragmatic hernia without obstruction or gangrene; K31.89 Other diseases of stomach and duodenum
CPT/HCPCS: 43248; 43239; 45378; 88305; 88342; C1769; J2405

== ENCOUNTER 2025-07-17 09:23 | Day surgery (SDC) | payer MEDICARE, OTHER, SELFPAY ==
--- NOTE | 2025-07-15 16:14 | PAT.ANE_ITS ---
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 When Was Last Pacemaker Check QUESTION #4 FULL TEXT: You/Your Family Experience fever (hyperthermia) with Anesthesia Last Oral Intake Last Oral intake: Last Oral Intake NPO since Meds taken in AM with sips of water? Meds patient instructed to take am of surgery PONV PONV - side stitching machine operator: PONV - side stitching machine operator Female Yes 07/15/25 15:46 HX of Motion Sickness No 07/15/25 15:46 HX of N/V After Surgery No 07/15/25 15:46 Non-Smoker No 07/15/25 15:46 Duration of Surgery greater No 07/15/25 15:46 than 60 minutes Number of Risk Factors 1 07/15/25 15:46 PONV Score Low Risk 07/15/25 15:46 Height & Weight Height & Weight: Anesthesia: Height & Weight Height 5 ft 5 in 06/26/25 13:43 Respiratory Assessment Respiratory Assessment - side stitching machine operator: Respiratory Tract Infection Hx - side stitching machine operator Hx Respiratory Tract Infection No 07/15/25 15:46 STOP Sleep Apnea STOP Sleep Apnea - side stitching machine operator: STOP Sleep Apnea - side stitching machine operator Hx Hypertension No 07/15/25 15:46 Hx Sleep Apnea No 07/15/25 15:46 CPAP BIPAP Do you snore loudly (louder No 07/15/25 15:46 than talking or can be heard Do you often feel tired/ No 07/15/25 15:46 fatigued/ sleepy during daytime? Has anyone observed you stop No 07/15/25 15:46 breathing during sleep? STOP Results Negative 07/15/25 15:46 QUESTION #5 FULL TEXT : Do you snore loudly (louder than talking or can be heard through closed doors)? 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 Specify any problems Hx of Preganancy in last 3 No 07/15/25 15:46 Months Nurse Filling Out Transfusion VCHRISTIN 07/15/25 15:46 & Questions: Date: 07/15/25 07/15/25 15:46 Time: 15:47 07/15/25 15:46 Patient unable to answer at this time (ie. confused, unrespo /Reproduction History /Reproductive History - side stitching machine operator: /Reproductive Hx- side stitching machine operator Hx Now No 07/15/25 15:46 Gestational Age (in weeks): EDC: Hx Hx Para Hx Section SAB No 07/15/25 15:46 PFSH Medical History (Updated 06/26/25 @ 15:[address] Vanegas Friend, DO) Wears glasses Non-smoker History of panic attacks History of echocardiogram Gait instability Weakness of right upper extremity Parkinson disease COVID-19 Acute bronchitis, unspecified Anemia Parkinson's disease Neck pain Shoulder pain Home Medications Medication Instructions Recorded Last Taken Type magnesium 200 mg tablet 200 mg PO DAILY 10/27/21 History coenzyme Q10 30 mg capsule 30 mg PO DAILY 11/08/22 History omega-3 fatty acids 1,000 mg 1,000 mg PO DAILY 3 02/13/25 History capsule multivitamin (Daily Multi-Vitamin 1 tab PO DAILY 02/1502/13/25 History tablet) alpha lipoic acid 300 mg capsule 300 mg PO QDAY Unknown History cholecalciferol (vitamin D3) 25 25 mcg PO QDAY 5 Unknown History mcg (1,000 unit) capsule potassium gluconate 595 mg (99 mg) 595 mg PO QDAY 10/13 Unknown History tablet carbidopa ER 50 mg-levodopa 200 mg 1 tab PO .QID #120 tabs 04/08/25 06/26/25 11:00 Rx tablet,extended release ondansetron 4 mg disintegrating 4 mg PO Q8H PRN PRN Na usea 3 days 05/16/25 Unknown Rx tablet #10 tabs vitamin E succinate 268 mg (400 268 mg PO QDAY 5 Unknown History unit) tablet buspirone 10 mg tablet 10 mg PO BID #60 tabs Unknown Rx pregabalin 75 mg capsule 75 mg PO BID 06/20/25 Unknow n History lubiprostone 24 mcg capsule 24 mcg PO BID #60 caps 05/13 Unknown Rx (Amitiza) Lactobacillus acidophilus 10 100 mmu cells PO DAILY Unknown History billion cell capsule (DermacinRx Bacillex) dicyclomine 20 mg tablet 20 mg PO BID 07/15/25 Unknow n History Allergy/AdvReac Type Severity Reaction Status Date / Time No Known Allergies Allergy Verified 07/15/25 15:40 Family History Mother Non-Hodgkin lymphoma Father Alzheimer disease Sister Bone cancer CVA (cerebral vascular accident) Parkinsons disease Grandfather Myocardial infarction Grandfather Myocardial infarction Surgical History (Updated 07/15/25 @ 15:46 by Marina Vance) Hx of colonoscopy No history of previous surgery Social History household members: spouse housing: house Smoking Status: Never smoker second hand exposure: No alcohol intake: current details: socially substance use type: does not use deshaun/gnosticism: Mosque seatbelt use: always Audit: Pertinent Findings Pertinent Findings EKG Perinent findings: February 15, 2025. Normal sinus rhythm. Echo (EF%) pertinent findings: February 15, 2025. EF of 55 to 60%. No aortic stenosis noted. No significant valvular abnormality. Recommendation Anesthesia Recommendation Anesthesia recommendation: OPTIMIZED for anesthesia
[2025-07-17] VITALS (8 sets, daily range): BP systolic 95–122; BP diastolic 58–81; PULSE 60–82; RESP 16–18; TEMP 36.3–36.4; O2SAT 100; BMI 17.6
--- NOTE | 2025-07-17 09:44 | PCM.PRE.AN2 ---
ASA Classification* ASA Classification ASA Classification: 2 Assessment & Plan Anesthesia* Anesthesia Assessment Anesthesia Assessment: Discussed sedation and/or anesthesia options, risks, benefits, and alternatives with patient/parents/legal guardian/POA. Questions invited. The patient/parents/legal guardian/POA seems to understand and agrees to proceed with anesthesia plan. Reviewed the physical assessment, medical history, allergy history and patient home medications list prior to surgery/procedure/anesthetic and documented any changes. Performed airway and anesthesia risk assessments. Anesthesia Type Anesthesia Type: MAC Anesthesia Focused Assessment* Airway Assessment Mouth opens: >3 cm Mallampati Score: II Labs Anesthesia Preop lab: CBC WBC, (4.4-11.0) 5.2 K/mm3 05/16/25, 00:55 RBC, (4.2-5.4) 3.71 M/mm3 L 05/16/25, 00:55 Hgb, (12.0-15.0) 12.2 g/dL 05/16/25, 00:55 Hct, (37-47) 35.7 % L 05/16/25, 00:55 Plt Count, (150-450) 202 K/mm3 05/16/25, 00:55 CHEMISTRY Potassium, (3.3-5.1) 3.8 mmol/L 05/16/25, 00:55 Sodium, (133-145) 139 mmol/L 05/16/25, 00:55 Magnesium, (1.6-2.6) 1.9 mg/dL 03/04/22, 10:08 BUN, (4-19) 30 mg/dL H 05/16/25, 00:55 Creatinine, (0.70-1.20) 0.74 mg/dL 05/16/25, 00:55 Glucose, (70-99) 108 mg/dL H 05/16/25, 00:55 POC Glucose, (74-106) 84 mg/dL 02/15/25, 01:59 TSH, (0.300-4.200) 1.550 uIU/mL 12/18/24, 11:38 COAG PT, (11.7-14.9) 13.6 SECONDS 02/15/25, 01:43 Pre-Assessment Diagnosis/Proposed Procedure Planned Operative Procedure(s): COLONOSCOPY Anesthesia History Anesthesia History - pattern molder: Anesthesia History - pattern molder Hx Hospitalization Yes: 5-25 - for observation 07/15/25 15:46 Any Problems With Anesthesia No 07/15/25 15:46 Cholinesterase deficiency No 07/15/25 15:46 You/Your Family Experience No 07/15/25 15:46 fever (hyperthermia) with Relationship Recent Exposure to Contagious No 06/26/25 13:43 Disease Does patient have nerve No 07/15/25 15:46 stimulator Patient instructed to have device shut off --Does patient have Pacemaker or ICD? When Was Last Pacemaker Check QUESTION #4 FULL TEXT: You/Your Family Experience fever (hyperthermia) with Anesthesia Last Oral Intake Last Oral intake: Last Oral Intake NPO since Meds taken in AM with sips of water? Meds patient instructed to take am of surgery PONV PONV - pattern molder: PONV - pattern molder Female Yes 07/15/25 15:46 HX of Motion Sickness No 07/15/25 15:46 HX of N/V After Surgery No 07/15/25 15:46 Non-Smoker No 07/15/25 15:46 Duration of Surgery greater No 07/15/25 15:46 than 60 minutes Number of Risk Factors 1 07/15/25 15:46 PONV Score Low Risk 07/15/25 15:46 Height & Weight Height & Weight: Anesthesia: Height & Weight Height 5 ft 5 in 06/26/25 13:43 Respiratory Assessment Respiratory Assessment - pattern molder: Respiratory Tract Infection Hx - pattern molder Hx Respiratory Tract Infection No 07/15/25 15:46 STOP Sleep Apnea STOP Sleep Apnea - pattern molder: STOP Sleep Apnea - pattern molder Hx Hypertension No 07/15/25 15:46 Hx Sleep Apnea No 07/15/25 15:46 CPAP BIPAP Do you snore loudly (louder No 07/15/25 15:46 than talking or can be heard Do you often feel tired/ No 07/15/25 15:46 fatigued/ sleepy during daytime? Has anyone observed you stop No 07/15/25 15:46 breathing during sleep? STOP Results Negative 07/15/25 15:46 QUESTION #5 FULL TEXT : Do you snore loudly (louder than talking or can be heard through closed doors)? Tobacco Use History Tobacco Use History - pattern molder: Tobacco Use History - pattern molder Tobacco Use Non-smoker 05/04/25 10:31 Smoking Status Never smoker 07/15/25 15:46 Hx Tobacco Use No 07/15/25 15:46 Years Smoking Packs Smoked per Day Smoking Cessation Date was within the last 15 years Hx Smoking Cessation Date Hx Smoking Cessation Counseling Hematologic Medial History Hematologic Hx - pattern molder: Hematologic Medical Hx - credit processor Hx of Blood Transfusion No 07/15/25 15:46 Hx of Transfusion in last 3 No 07/15/25 15:46 Months Date of Last Transfusion (if within last 3 months) Ever experience any problems No 07/15/25 15:46 with transfusion(s)? Specify any problems Hx of Preganancy in last 3 No 07/15/25 15:46 Months Nurse Filling Out Transfusion VCHRISTIN 07/15/25 15:46 & Questions: Date: 07/15/25 07/15/25 15:46 Time: 15:47 07/15/25 15:46 Patient unable to answer at this time (ie. confused, unrespo /Reproduction History /Reproductive History - pattern molder: /Reproductive Hx- pattern molder Hx Now No 07/15/25 15:46 Gestational Age (in weeks): EDC: Hx Hx Para Hx Section SAB No 07/15/25 15:46 [facility] Medical History (Updated 06/26/25 @ 15:[address] Vanegas Friend, DO) Wears glasses Non-smoker History of panic attacks History of echocardiogram Gait instability Weakness of right upper extremity Parkinson disease COVID-19 Acute bronchitis, unspecified Anemia Parkinson's disease Neck pain Shoulder pain Home Medications Medication Instructions Recorded Last Taken Type magnesium 200 mg tablet 200 mg PO DAILY 10/27/21 02/13/25 History coenzyme Q10 30 mg capsule 30 mg PO DAILY 11/08/22 02/13/25 History omega-3 fatty acids 1,000 mg 1,000 mg PO DAILY 11/08/22 02/13/25 History capsule multivitamin (Daily Multi-Vitamin 1 tab PO DAILY 02/15/25 02/13/25 History tablet) alpha lipoic acid 300 mg capsule 300 mg PO QDAY 03/19/25 Unknown History cholecalciferol (vitamin D3) 25 25 mcg PO QDAY 03/19/25 Unknown History mcg (1,000 unit) capsule potassium gluconate 595 mg (99 mg) 595 mg PO QDAY 03/19/25 Unknown History tablet carbidopa ER 50 mg-levodopa 200 mg 1 tab PO .QID #120 tabs 04/08/25 06/26/25 11:00 Rx tablet,extended release ondansetron 4 mg disintegrating 4 mg PO Q8H PRN PRN Nausea 3 days 05/16/25 Unknown Rx tablet #10 tabs vitamin E succinate 268 mg (400 268 mg PO QDAY 05/30/25 Unknown History unit) tablet buspirone 10 mg tablet 10 mg PO BID #60 tabs 06/10/25 Unknown Rx pregabalin 75 mg capsule 75 mg PO BID 06/20/25 Unknown History lubiprostone 24 mcg capsule 24 mcg PO BID #60 caps 06/26/25 Unknown Rx (Amitiza) Lactobacillus acidophilus 10 100 mmu cells PO DAILY 07/15/25 Unknown History billion cell capsule (DermacinRx Bacillex) dicyclomine 20 mg tablet 20 mg PO BID 07/15/25 Unknown History Allergy/AdvReac Type Severity Reaction Status Date / Time No Known Allergies Allergy Verified 07/15/25 15:40 Family History Mother Non-Hodgkin lymphoma Father Alzheimer disease Sister Bone cancer CVA (cerebral vascular accident) Parkinsons disease Grandfather Myocardial infarction Grandfather Myocardial infarction Surgical History (Updated 07/15/25 @ 15:46 by Marina Vance) Hx of colonoscopy No history of previous surgery Social History household members: spouse housing: house Smoking Status: Never smoker second hand exposure: No alcohol intake: current details: socially substance use type: does not use deshaun/advent: Yazdanism seatbelt use: always Review of Systems (Anesthesia) ROS Narrative System reviewed and no additional complaints, except as documented.
[2025-07-17] MEDS: Lactated Ringers 1,000 ML 15 ML IV (10:11)
--- NOTE | 2025-07-17 10:18 | PCM.HP.STD ---
HPI - General General Date of Admission: 07/17/25 Date of Service: 07/17/25 Chief Complaint: Abdominal pain, diarrhea HPI Narrative ANTHONY CHAUDHARY, is a 70 F who presents [ Chief Complaint: abdominal pain and diarrhea HPI Narrative [ ANTHONY CHAUDHARY, is a 69 F who presents to the office today for ER follow up. She has a history of Parkinson's disease (PD), anxiety, depression, and chronic pain. She reports a two-day history of new-onset left lower quadrant (LLQ) abdominal pain and bloating. [facility] ED 05.16.25 pt presents with left lower quadrant pain. abd/pelvis CT 05.16.25 Mild small bowel/jejunal loops wall thickening, possibly inflammatory (enteritis) versus non specific. Advise clinical correlation. Colonic diverticulosis. No diverticulitis. Colonic fecal loading. OV 05.30.25 pt's reports they're here today to follow up from imaging done in the ER 05.16.25. Pt reports ongoing constant abdominal cramping for the past month; reports several medication changes recently for pt's neuropathy in her feet. Pt reports that eating does not make pain worse, and having a bm does not alleviate pain. Pt reports bm every 3-5 days and reports that this is her normal. The pain is described as a persistent, cramping sensation in her LLQ. It is rated as 5/10 on the pain scale but can intensify to 7/10 with movement or after eating. She notes the pain is similar to discomfort she has felt with constipation in the past but is more localized and intense. She reports a constant feeling of abdominal fullness and tightness that worsens throughout the day, especially after meals. She states her last bowel movement was four days ago, and it was hard and difficult to pass. She reports a history of chronic constipation, a common non-motor symptom of PD. She denies fever, chills, nausea, vomiting, or blood in her stool. She reports increased anxiety due to the new pain, which is exacerbating her stress and making it harder to cope with her other chronic pain and PD symptoms. Her depression symptoms are stable, but the new pain is impacting her quality of life. Medications: Takes regular PD medications. She is also on a medication for anxiety and depression and reports good adherence. Review for potential GI side effects of current medications is warranted. dicyclomine 20 mg PO TID 90 tabs 2RF Health: Refer for counseling to help with coping strategies for chronic illness, pain, and anxiety Medications: [facility] Medical History Wears glasses Non-smoker History of panic attacks History of echocardiogram Gait instability Weakness of right upper extremity Parkinson disease COVID-19 Acute bronchitis, unspecified Anemia Parkinson's disease Neck pain Shoulder pain Home Medications Medication Instructions Recorded Last Taken Type magnesium 200 mg tablet 200 mg PO DAILY 10/27/21 02/13/25 History coenzyme Q10 30 mg capsule 30 mg PO DAILY 11/08/22 02/13/25 History omega-3 fatty acids 1,000 mg 1,000 mg PO DAILY 11/08/22 02/13/25 History capsule multivitamin (Daily Multi-Vitamin 1 tab PO DAILY 02/15/25 02/13/25 History tablet) alpha lipoic acid 300 mg capsule 300 mg PO QDAY 03/19/25 Unknown History cholecalciferol (vitamin D3) 25 25 mcg PO QDAY 03/19/25 Unknown History mcg (1,000 unit) capsule potassium gluconate 595 mg (99 mg) 595 mg PO QDAY 03/19/25 Unknown History tablet carbidopa ER 50 mg-levodopa 200 mg 1 tab PO .QID #120 tabs 04/08/25 07/17/25 Rx tablet,extended release ondansetron 4 mg disintegrating 4 mg PO Q8H PRN PRN Nausea 3 days 05/16/25 Unknown Rx tablet #10 tabs vitamin E succinate 268 mg (400 268 mg PO QDAY 05/30/25 Unknown History unit) tablet buspirone 10 mg tablet 10 mg PO BID #60 tabs 06/10/25 Unknown Rx pregabalin 75 mg capsule 75 mg PO BID 06/20/25 07/17/25 History lubiprostone 24 mcg capsule 24 mcg PO BID #60 caps 06/26/25 Unknown Rx (Amitiza) Lactobacillus acidophilus 10 100 mmu cells PO DAILY 07/15/25 Unknown History billion cell capsule (DermacinRx Bacillex) dicyclomine 20 mg tablet 20 mg PO BID 07/15/25 Unknown History Allergy/AdvReac Type Severity Reaction Status Date / Time No Known Allergies Allergy Verified 07/17/25 10:02 Family History Mother Non-Hodgkin lymphoma Father Alzheimer disease Sister Bone cancer CVA (cerebral vascular accident) Parkinsons disease Grandfather Myocardial infarction Grandfather Myocardial infarction Surgical History Hx of colonoscopy No history of previous surgery Social History household members: spouse housing: house Smoking Status: Never smoker second hand exposure: No alcohol intake: current details: socially substance use type: does not use deshaun/moravian: Adventist seatbelt use: always ROS Constitutional Constitutional: Denies fatigue, fever(s), poor appetite, weight gain or weight loss Gastrointestinal Gastrointestinal: Denies belching, bloating, change in bowel habits, change in stool character, chewing difficulty, coffee ground emesis, constipation, cramping, diarrhea, dyspepsia, dysphagia, early satiety, excessive flatus, fecal incontinence, heartburn, hematemesis, hematochezia, hemorrhoids, loose stools, melena, nausea, odynophagia, rectal bleeding, tenesmus, vomiting or weight changes Vital Signs Vital Signs Vital Signs: 07/17/25 10:03 07/17/25 10:03 Temperature 97.6 F L Temperature Source Temporal Pulse Rate 82 Respiratory Rate 16 Respiratory Pattern Normal Blood Pressure 122/80 H Blood Pressure Mean 94 Blood Pressure Source Monitor Blood Pressure Position Semi-Fowlers Blood Pressure Location Left Arm Pulse Ox 100 Oxygen Delivery Method Room Air Weight Weight: 106 lb Body Mass Index (BMI) 17.6 Physical Exam Const alert, oriented x3, no apparent distress and healthy appearing General Appearance: cooperative GI normal to inspection, nondistended, normoactive bowel sounds, soft to palpation, non-tender and non-distended Percussion: normal to percussion Rectal Exam: deferred Assessment & Plan Assessment/Plan (1) Constipation: (2) Anemia: PLAN: Assessment & Plan Assessment/Plan (1) Abdominal pain: (2) Anemia: PLAN: Assessment and Plan Assessment and Plan (1) Panic attacks: Status: Acute (2) Anxiety: Status: Acute (3) Abdominal pain: Status: Acute Plan: Assessment Left Lower Quadrant Pain and Bloating: The primary assessment is abdominal pain and bloating, likely related to her chronic constipation, a common and often severe non-motor symptom of Parkinson's disease. The neurodegenerative processes of PD can slow GI motility, leading to constipation and related symptoms. Parkinson's Disease (PD): The patient's underlying PD is a significant factor in her presentation. GI dysfunction in PD is common and can affect the entire gut. Chronic Pain: Her history of chronic pain is intertwined with her PD and anxiety, with these conditions often creating a negative feedback loop. Anxiety and Depression: Both conditions are linked to chronic illness and pain, exacerbating each other. Her current abdominal symptoms are a source of increased anxiety. Differential Diagnoses for LLQ pain in an elderly woman: While constipation is most likely, it is important to consider other possibilities: Diverticulitis (common in older adults). Small Intestinal Bacterial Overgrowth (SIBO), which is more common in PD and can cause bloating. Irritable Bowel Syndrome (IBS). Ovarian pathology (less likely given no associated gynecological symptoms, but should be considered). Inflammatory Bowel Disease (IBD). Colorectal cancer (less common with acute onset, but requires consideration with "red flag" symptoms). Plan Diagnostic: Order a complete blood count (CBC) to check for infection/inflammation. Consider an abdominal CT scan with contrast if the LLQ pain persists or worsens, to rule out diverticulitis or other serious pathology. Colonoscopy if conservative treatment fails or if "red flag" symptoms like unexplained weight loss or rectal bleeding appear. Treatment: Immediate management: Recommend a gentle bowel regimen with a stool softener (e.g., docusate) and an osmotic laxative (e.g., MiraLAX). Advise increasing fluid intake and gentle physical activity, as tolerated. PD and GI: Re-evaluate current PD and other medications for potential GI side effects that may worsen constipation. Pain: Continue current pain management, but consider non-pharmacological approaches to reduce reliance on pain medications that can worsen constipation. Mental
--- NOTE | 2025-07-17 10:30 | COLBX_PTH ---
PATIENT: ANTHONY CHAUDHARY LOC: EN U#:[id number] AGE/SX: 70/F ROOM: RE07/17/[address]: Dr. Guilherme Montgomery DO : 1955 BED: DIS: 07/17/2025 SPEC #: [id number] RECD: 07/17/25 11:41 STATUS: [facility]EDERICK REQ #: [id number] KARUNA: 07/17/25 10:[address]: Guilherme Montgomery DEPT: SURGICAL PATHOLOGY RECD BY: Daryl Avery ENTERED: 07/17/25 15:54 SP TYPE: COLON BX OTHR DR: Dr. Eleanor Armstrong, Tissues: A - Ileum, NOS Procedures: Surgery Specimen Level IV Comments: Called office on 07/24/25 at 8:56am and spoke to Candice. Informed Candice that case is getting sent out to [facility] for consultation. HEADER OPERATION: Colonoscopy with biopsy PRE-OP DIAGNOSIS: Constipation, anemia TISSUE SUBMITTED: A-Terminal ileum biopsy MICROSCOPIC DIAGNOSIS A. Terminal ileum, biopsy: - Prominent mucosal lymphoid tissue with atypical features. - Further evaluation to rule out a lymphoproliferative disorder is pending expert consultation at [facility]. A separate report will follow. MICROSCOPIC DESCRIPTION Slides are reviewed. GROSS DESCRIPTION A. Received in fixative is one container labeled with the patient's name and designated "Terminal ileum biopsy." The specimen consists of three irregular fragments of caruso tissue, each measuring 0.3 cm. The specimen is totally submitted in one cassette. [place] 07/17/2025 CPT:[id number] ADDENDUM ADDENDUM ADDENDUM ADDENDUM ADDENDUM ADDENDUM ADDENDUM ADDENDUM ADDENDUM ADDENDUM ADDENDUM ADDENDUM ADDENDUM ADDENDUM ADDENDUM ADDENDUM 08/29/2025 08:44 ADDENDUM 08/29/2025 08:44 ADDENDUM 08/29/2025 08:44 ADDENDUM 08/29/2025 08:44 ADDENDUM 08/29/2025 08:44 This addendum is added to incorporate an outside pathology consultation report. The case was examined at [facility] (#[id number]) and the following diagnosis was rendered. A. Small intestine, terminal ileum, biopsy: IGH PCR PATTERN: Predominantly polyclonal pattern with minimal skewing IGH INTERPRETATION: Given the predominant polytypic IGH amplification patten, the findings are not diagnostic of a clonal B-cell population on PCR criteria alone. Correlate with clinical findings and other laboratory studies. Run and sample controls meet acceptable criteria. Please see complete above mentioned consultation report in EMR
--- NOTE | 2025-07-17 11:03 | OP.PROVAT_ITS ---
07/17/2025 Eleanor Armstrong [address] [place] [address] Re : Colonoscopy procedure for Emily Escobar Dear Dr. Armstrong This procedure was performed on Thursday, July 17, 2025. My impressions and recommendations are as follows: Impressions : - Diverticulosis in the recto-sigmoid colon and in the sigmoid colon. - Rectal prolapse. - Congested mucosa in the terminal ileum. Biopsied. Recommendations : - Discharge patient to home. - Resume previous diet. - Continue present medications. - Await pathology results. - Repeat colonoscopy in 5 years for surveillance. My findings are described in the full procedure note, which is enclosed. If I can be of further assistance, please feel free to contact me at . Sincerely, Guilherme Montgomery, 07/17/2025 11:03:12 AM This report has been signed electronically.
--- NOTE | 2025-07-17 11:03 | OP.COLON_ITS ---
Patient Name: Emily Escobar Procedure Date: 07/17/2025 10:24 AM Date of : 1955 Age: 70 Procedure: Colonoscopy Indications: Abdominal pain in the right lower quadrant, Failure to thrive, Weight loss Providers: Guilherme Montgomery DO Medicines: Monitored Anesthesia Care Patient Profile: This is a 70 year old female. Refer to note in patient chart for documentation of history and physical. Last Colonoscopy: several years ago. Complications: No immediate complications. Procedure: Pre-Anesthesia Assessment: - Prior to the procedure, a History and Physical was performed, and patient medications and allergies were reviewed. The patient is competent. The risks and benefits of the procedure and the sedation options and risks were discussed with the patient. All questions were answered and informed consent was obtained. Patient identification and proposed procedure were verified by the physician in the pre-procedure area. Mental Status Examination: alert and oriented. Airway Examination: normal oropharyngeal airway and neck mobility. Respiratory Examination: clear to auscultation. CV Examination: normal. Prophylactic Antibiotics: The patient does not require prophylactic antibiotics. Prior Anticoagulants: The patient has taken no anticoagulant or antiplatelet agents except for NSAID medication. ASA Grade Assessment: II - A patient with mild systemic disease. After reviewing the risks and benefits, the patient was deemed in satisfactory condition to undergo the procedure. The anesthesia plan was to use monitored anesthesia care (MAC). Immediately prior to administration of medications, the patient was re-assessed for adequacy to receive sedatives. The heart rate, respiratory rate, oxygen saturations, blood pressure, adequacy of pulmonary ventilation, and response to care were monitored throughout the procedure. The physical status of the patient was re-assessed after the procedure. After I obtained informed consent, the scope was passed under direct vision. Throughout the procedure, the patient's blood pressure, pulse, and oxygen saturations were monitored continuously. The Colonoscope was introduced through the anus and advanced to the terminal ileum. The colonoscopy was performed without difficulty. The patient tolerated the procedure well. The quality of the bowel preparation was adequate. The terminal ileum, ileocecal valve, appendiceal orifice, and rectum were photographed. Scope In: 10:37:00 AM Scope Withdrawal Time 0 hours 13 minutes 45 seconds Scope Out: 10:57:02 AM Total Procedure Duration Time 0 hours 20 minutes 2 seconds Findings: The perianal and digital rectal examinations were normal. Multiple small-mouthed diverticula were found in the recto-sigmoid colon and sigmoid colon. Mild rectal prolapse was present. A patchy area of the terminal ileum was congested. Biopsies were taken with a cold forceps for histology. Verification of patient identification for the specimen was done. Estimated blood loss was minimal. Impression: - Diverticulosis in the recto-sigmoid colon and in the sigmoid colon. - Rectal prolapse. - Congested mucosa in the terminal ileum. Biopsied. Recommendation: - Discharge patient to home. - Resume previous diet. - Continue present medications. - Await pathology results. - Repeat colonoscopy in 5 years for surveillance. Procedure Code(s): --- Professional --- 28940, Colonoscopy, flexible; with biopsy, single or multiple CPT copyright 2021 [employer]. All rights reserved. The codes documented in this report are preliminary and upon clerical assistant review may be revised to meet current compliance requirements. Guilherme Montgomery DO 07/17/2025 11:03:12 AM This report has been signed electronically. Number of Addenda: 0 Note Initiated On: 07/17/2025 10:24 AM
--- NOTE | 2025-07-17 11:10 | PCM.POST.ANE ---
Anesthesia: Postop Eval I Current Vital Signs Temperature: 97.4 F Pulse Rate: 60 Blood Pressure: 95/67 Respiratory Rate: 16 Pulse Ox: 100 Oxygen Delivery Method: Room Air Assessment Airway patent: Yes Spontaneous unlabored respirations: Yes Mental status: Asleep nausea: No Vomiting: No Anesthesia Complication: No Fluid Hydration Crystalloid volume administer (ml): 700 Total IV fluid infused: 700 Progress Note Anesthesia document: Postop Eval 1 completed: Yes
--- NOTE | 2025-07-17 11:46 | PCM.POSTANE2 ---
Anesthesia Postop Eval I Sum Postop Eval Completion status Anesthesia document: Postop Eval 1 completed: Yes Anesthesia Postop Eval I Summary Anesthesia Postop Eval I Summary: Anesthesia Postop Eval I: Assessment Summary Airway patent Yes 07/17/25 11:11 [email or web address] Spontaneous unlabored Yes 07/17/25 11:11 [email or web address] respirations Mental status Asleep 07/17/25 11:11 [email or web address] nausea No 07/17/25 11:11 [email or web address] Vomiting No 07/17/25 11:11 [email or web address] Anesthesia Postop Eval I: Fluid Summary Crystalloid volume administer 700 07/17/25 11:11 [email or web address] (ml) Colloids volume administered ( ml) Blood Product volume administered (ml) Total IV fluid infused 700 07/17/25 11:11 [email or web address] Anesthesia Postop Eval I: Summary Notes Anesthesia Complication No 07/17/25 11:11 [email or web address] Anesthesia Complication Comment: Post-operative progress note Anesthesia: Postop Eval II Evaluation Mental status: Awake Pain Level: 0 nausea: No Vomiting: No
== END 2025-07-17 12:21 | disposition home or self-care (01) ==
LOC: EN 09:27 → AC 09:29
PROVIDERS: PCP Internal Medicine; Referring Provider Internal Medicine; Visit Provider Internal Medicine Gastroenterology
PROC: 0DJD8ZZ Inspection of Lower Intestinal Tract, Via Natural or Artificial Opening Endoscopic (ICD-10-PCS; CPT 45378; principal; 2025-07-17 10:25)
DX: R10.32 Left lower quadrant pain (principal); G20.A1 Parkinson's disease without dyskinesia, without mention of fluctuations; K57.30 Diverticulosis of large intestine without perforation or abscess without bleeding; R62.7 Adult failure to thrive; K62.3 Rectal prolapse; F41.0 Panic disorder [episodic paroxysmal anxiety]; K63.89 Other specified diseases of intestine; D64.9 Anemia, unspecified; F32.A Depression, unspecified; Z79.899 Other long term (current) drug therapy; K59.00 Constipation, unspecified; Z68.1 Body mass index [BMI] 19.9 or less, adult
CPT/HCPCS: 45380; 88305; J2405